=== PATIENT | female | born 1980 | race Caucasian/White ===

== ENCOUNTER → 2024-08-25 | Outpatient (CLI) | payer OTHER, MEDICAID, SELFPAY ==
--- NOTE | 2024-08-25 16:05 | RAD_ITS ---
INDICATION: left sided pleural effusion EXAMINATION/TECHNIQUE: X-RAY - XR Chest 2 Views COMPARISON: None. FINDINGS: LINES/DEVICES: Right-sided port. LUNGS: Moderate left-sided pleural effusion with possible lower lobe consolidation. Right lung clear. MEDIASTINUM AND CARDIOVASCULAR STRUCTURES: Cardiac silhouette within normal limits. BONES AND SOFT TISSUES: No acute findings. Scoliosis. RAD/Chest PA and Lateral IMPRESSION: Left lower lobe pleural effusion and/or consolidation. Electronically Signed: Ulisses Garces MD at 16:53 EST ,
== END | disposition home or self-care (01) ==
LOC: RAD 16:02
PROVIDERS: PCP Nurse Practitioner Family; Referring Provider Nurse Practitioner Family; Visit Provider Nurse Practitioner Family
DX: J90 Pleural effusion, not elsewhere classified (principal); R05.9 Cough, unspecified
CPT/HCPCS: 71046

== ENCOUNTER → 2024-08-26 | Outpatient (CLI) | payer OTHER, MEDICAID, SELFPAY ==
--- NOTE | 2024-08-26 | IMM_PTH ---
PATIENT: JESSICA FELIX LOC: [facility]#:[id number] AGE/SX: 43/F ROOM: RE08/26/[address]: DIANNE Calzada : 1980 BED: DIS: 08/26/2024 SPEC #: [id number] RECD: 08/28/24 10:44 STATUS: SCOTT REQ #: [id number] DICKSON: 08/26/24 00:[address]: Ellen Dowling NP DEPT: IMMUNOHISTOCHEMISTRY RECD BY: Brenton Franklin ENTERED: 08/28/24 10:45 SP TYPE: IMMUNO OTHR DR: DIANNE Daniel Tissues: THORACIC FLUID Procedures: RCC (add) NAPSIN A (add) CA-125 (add) Philippe Ret (add) CEA (add) CK20 (add) CK7 (add) CK8 (add) HEP PAR (add) SC (add) TTF1 (add) Vimentin (add) Pankeratin (add) CD68 (ADD) ER (initial) PHYSICIAN & [address] [address] SPECIMEN INFORMATION: Tissue Source: Thoracentesis fluid Clinical Info: Pleural effusion Specimen Number: [id number] CPT code: 89128,[id number] METHODOLOGY: Deparaffinized sections of prefer/formalin-fixed tissue or PAP/DQ stained slides are incubated with monoclonal/polyclonal antibodies/oligonucleotide probes. Localization is made via biotin free immunoperoxidase method. Appropriate controls are performed and reacted as expected. Results on target cell population are indicated in the following table: RESULTS: ANTIBODY / CLONE RESULT ER (6F11) negative SC (1E2) negative AE1-3 (AE1/AE3/PCK26) positive * CK7 (OV-TL12/30) positive * CK8 (88ffnyD55) positive * CK20 (KS20.8) negative Vimentin (V9) negative * CD68 (KP-1) negative TTF-1 (8G7G3/1) negative Napsin A (Rabbit Polyclonal) negative HepPar (OCh1E5) negative RCC (PN-15) negative CALRET (polyclonal) negative * CEA (11-7/TF-3HB-1) negative, CA125 (OC125) positive(favor non-specific staining) * Positive in mesothelial cells These tests were developed and their performance characteristics determined by [facility]. They may not have been cleared or approved by the U.S. Food and Drug Administration. The FDA has determined that such clearance or approval is not necessary. The above immunohistochemical/dualISH markers are ordered and reviewed by the Pathologist. INTERPRETATION: Thoracentesis fluid for cytology (cytospins and cellblock): Negative for malignant cells. See comment. Comment: Rare, atypical cells noted. Case has been reviewed in consultation with Dr. Oliveira who concurs with the above diagnosis. IDC:NAKIA Todd 09/01/2024
[2024-08-26 13:25] VITALS: BP 114/77; PULSE 97; RESP 18; O2SAT 95
[2024-08-26] MEDS: Lidocaine 2% (20 ml mdv) 20 ML Vial INFILT (13:35)
--- NOTE | 2024-08-26 13:39 | FLU_PTH ---
PATIENT: JESSICA FELIX LOC: [facility]#:[id number] AGE/SX: 43/F ROOM: RE08/26/[address]: DIANNE Calzada : 1980 BED: DIS: 08/26/2024 SPEC #: [id number] RECD: 08/26/24 14:24 STATUS: SCOTT RERuby #: [id number] DICKSON: 08/26/24 13:[address]: Ellen Dowling NP DEPT: CYTOLOGY RECD BY: Yamila Hernadez ENTERED: 08/27/24 11:58 SP TYPE: Fluid OTHR DR: DIANNE Daniel Tissues: Pleural fluid, NOS Procedures: Special Stain Group II Surgery Specimen Level IV Cytospin Fluid HEADER OPERATION: Ultrasound guided thoracentesis PRE-OP DIAGNOSIS: Pleural effusion - left TISSUE SUBMITTED: Thoracentesis fluid for cytology DIAGNOSIS CYTOLOGY Thoracentesis fluid for cytology (cytospins): Negative for malignant cells. See comment. 08/28/2024 COMMENT Immunohistochemistry ([id number]) supports the above diagnosis. Rare atypical cells noted. This case has been reviewed in consultation with Dr. Oliveira who concurs with the above diagnosis. CYTOLOGY STUDY Slides are reviewed. CYTOLOGY GROSS Received is 100 ml of pink-cloudy fluid labeled with the patient's name and and designated per the requisition as Thoracentesis fluid. Submitted for cytology preparation including cell block. Mr 08/27/2024 TC:5 CPT: 49966,07777
[2024-08-26 13:40] VITALS: BP 113/71; PULSE 100; RESP 18; O2SAT 95
[2024-08-26 13:43] VITALS: BP 105/81; PULSE 96; RESP 18; O2SAT 94
--- NOTE | 2024-08-26 13:45 | RAD_ITS ---
STUDY: X-RAY CHEST REASON FOR EXAM: Female, 43 years old. Post thoracentesis TECHNIQUE: AP and inspiration expiration views. COMPARISON: Comparison is made with prior study dated August 25, 2024. FINDINGS: The patient is status post left thoracentesis. No evidence of pneumothorax. Residual left pleural-parenchymal changes seen. RAD/Chest Insp/Exp 2 View IMPRESSION: Status post left thoracentesis. No evidence of pneumothorax. Residual pleural-parenchymal changes are seen at the left lung base. Electronically Signed: Efrain Lynn MD at 13:58 EST ,
--- NOTE | 2024-08-26 13:48 | PCM.OPRPT ---
Problems Associated Problem List Diagnoses (1) Pleural effusion: Procedures Radiology Radiology US Procedures: 67271 Thoracentesis Operative Report (Standard) Operative Information Date of Procedure: 08/26/24 Pre-Operative Diagnosis: Pleural effusion, left Post-Operative Diagnosis: Pleural effusion, left Surgery/Procedure Performed: Ultrasound-guided thoracentesis of the left lung stone polisher: No Type of Anesthesia: Local Procedure Start Time: 13:35 Procedure Stop Time: 13:45 Select all DRAINS/GRAFTS/IMPLANTS that apply: None Estimated Blood Loss: 0 Specimen collected: Yes Description of specimen(s) removed: 100 cc lopez drainage sent to lab Description of surgery: PROCEDURE: Ultrasound Guided Thoracentesis ORDERING PROVIDER: Ellen Dowling CNP INDICATION: Female, 43 years old. Left pleural effusion. PROVIDER: Ramona Luke CNP PROCEDURE: The risks, benefits, and alternatives to the procedure were explained to the patient. The specific risks of bleeding, infection, and pneumothorax requiring chest tube insertion were discussed and accepted. Written informed consent was obtained. The patient was placed in the sitting, upright position. Ultrasonographic evaluation of the bilateral lower pleural spaces was carried out. An adequate pocket was identified in the left lower lobe. The overlying skin was prepped with chlorhexidine and draped in sterile fashion. 2 % lidocaine was administered subcutaneously for local anesthesia. Under ultrasound guidance, a 5-Sinhala thoracentesis needle/catheter system was advanced into the left posterior lower pleural fluid collection. 970 ml of lopez colored fluid was drained. The catheter was removed, and a sterile dressing was applied. The patient tolerated the procedure well. A chest x-ray was ordered. IMPRESSION: Successful ultrasound guided thoracentesis of left pleural effusion. Surgical Findings: Culture and sensitivity test added Complications Complications: No
[2024-08-26 14:00] VITALS: BP 122/83; PULSE 97; RESP 18; O2SAT 95
== END | disposition home or self-care (01) ==
PROVIDERS: PCP Nurse Practitioner Family; Referring Provider Nurse Practitioner Family; Visit Provider Nurse Practitioner Family
DX: J90 Pleural effusion, not elsewhere classified (principal)
CPT/HCPCS: 32555; 71046; 87070; 87075; 87205; 88108; 88305; 88313; 88341; 88342

== ENCOUNTER → 2024-09-01 | Outpatient (CLI) | payer OTHER, MEDICAID, SELFPAY ==
--- NOTE | 2024-09-01 06:52 | CT_ITS ---
STUDY: CT CHEST, ABDOMEN T PELVIS WITH CONTRAST REASON FOR EXAM: Female, 43 years old. F/U METS OVARIAN CA COMPARE TO [place] 2023 RADIATION DOSAGE (If Supplied By Facility): CTDIvol = ( 23.69 ) mGy, DLP = ( 2390.59 ) mGycm TECHNIQUE: Transaxial imaging was performed following intravenous administration of Oral and amp; IV Readi-CAT and amp; 100mL Isovue-300. Multiplanar coronal and sagittal images were reformatted. Individualized dose optimization techniques were used for this CT. COMPARISON: Comparison is made with prior study dated August 03, 2024. FINDINGS: CHEST A right-sided shannan catheter seen with the tip in the superior vena cava. Stable moderate-sized left pleural effusion with left basilar compressive atelectasis and/or infiltrate. Small amount of fluid is seen in the left major fissure. The right lung is clear. There is no demonstrated pleural abnormality. Normal heart and pericardium. Normal mediastinum. Normal hilar regions. Normal unenhanced pulmonary arteries. Normal aorta arch and descending thoracic aorta. Normal osseous structures. ABDOMEN There is decreased attenuation of the liver consistent with steatosis. Small amount of perihepatic fluid. Small amount of fluid in the : Gutters bilaterally. Normal gallbladder and extrahepatic biliary system. Normal spleen. Normal pancreas. Normal bilateral adrenal glands. Normal right kidney. Normal left kidney. Normal visualized stomach. Normal small intestine. There are scattered colonic diverticula consistent with diverticulosis. The appendix is visualized and appears normal. Normal abdominal aorta. Normal inferior vena cava. Normal retroperitoneum. Normal abdominal wall. Normal osseous structures. PELVIS Normal urinary bladder. Pelvic ascites. Status post hysterectomy. There is no pelvic lymphadenopathy or mass lesion. Normal visualized pelvic arteries. CT/CT Chest, Abd, Pel w/Contrast IMPRESSION: Ascites. Diffuse fatty infiltration of the liver. Moderate size left pleural effusion with left basilar atelectasis. Electronically Signed: Efrain Lynn MD at 14:53 EST ,
== END | disposition home or self-care (01) ==
LOC: CT 06:51
PROVIDERS: PCP Nurse Practitioner Family; Referring Provider Internal Medicine Hematology & Oncology; Visit Provider Internal Medicine Hematology & Oncology
DX: C56.3 Malignant neoplasm of bilateral ovaries (principal); C78.6 Secondary malignant neoplasm of retroperitoneum and peritoneum
CPT/HCPCS: 71260; 74177; Q9967

== ENCOUNTER → 2024-09-23 | Outpatient (CLI) | payer OTHER, MEDICAID, SELFPAY ==
--- NOTE | 2024-09-23 08:10 | US_ITS ---
STUDY: ABDOMINAL ULTRASOUND -ascites survey. REASON FOR VISIT: Female, 43 years old FLUID FROM PELVIS TECHNIQUE: Ultrasound evaluation of the 4 quadrants was performed with real-time and static valderrama-scale imaging. TECHNICAL QUALITY: Adequate. COMPARISON: None. FINDINGS: Ascites survey was performed. A small amount of free fluid is seen in the cul-de-sac. Not enough fluid for safe paracentesis. US/Abdomen Limited IMPRESSION: Not enough fluid for safe paracentesis. Electronically Signed: Efrain Lynn MD at 13:56 EST ,
[2024-09-23 08:40] VITALS: BP 146/90; PULSE 95; RESP 18; O2SAT 97
== END | disposition home or self-care (01) ==
LOC: US 08:10
PROVIDERS: PCP Nurse Practitioner Family; Referring Provider Internal Medicine Hematology & Oncology; Visit Provider Internal Medicine Hematology & Oncology
DX: C56.3 Malignant neoplasm of bilateral ovaries (principal)
CPT/HCPCS: 76705

== ENCOUNTER → 2024-12-02 | Outpatient (CLI) | payer OTHER, MEDICAID, SELFPAY ==
--- NOTE | 2024-12-02 08:00 | CT_ITS ---
PROCEDURE: CT CHEST, ABD, PEL W/CONTRAST 12/02/2024 REASON FOR EXAM: F/U OVARIAN CANCER TECHNIQUE: Chest, abdomen and pelvis CT with intravenous contrast. Coronal and Sagittal reconstruction series were provided. One or more dose reduction techniques were used (e.g., Automated exposure control, adjustment of the mA and/or kV according to patient size, use of iterative reconstruction technique. PATIENT PREPARATION: Per protocol ORAL CONTRAST TYPE: Given CONTRAST: Isovue-300 VOLUME: 100 mLmL RADIATION DOSE SUMMARY: CTDlvol: 16 mGy DLP: 1731.57 mGycm COMPARISON: Comparison is made with prior study dated September 01, 2024. FINDINGS: CT CHEST: Hardware: A right-sided port a catheter is seen with the tip in the superior vena cava. Lymph nodes: No suspicious lymph nodes are seen. Heart and Vasculature: Coronary artery calcifications are noted. Lungs and Airways: No pulmonary infiltrate or pulmonary nodule is seen. Pleura: The previously seen left pleural effusion has resolved. Bones: Degenerative changes of the thoracic spine. CT ABDOMEN/PELVIS: Liver: Diffuse fatty infiltration. Gallbladder: Unremarkable. Spleen: Normal size. Pancreas: Normal size without evidence of mass surrounding inflammation or ductal dilation. Adrenals: Unremarkable Kidneys: Normal renal sizes. No hydronephrosis. Bladder: Unremarkable. Reproductive Organs: Prior hysterectomy. Bilateral oophorectomy. Bowel: Colonic diverticulosis without diverticulitis. Appendix: The appendix is not identified. There is no inflammatory process identified in the right lower quadrant to suggest appendicitis. Lymph nodes: Unremarkable. Vasculature: The abdominal aorta and IVC are normal. Peritoneum / Retroperitoneum: Unremarkable. Bones: Unremarkable CT/CT Chest, Abd, Pel w/Contrast IMPRESSION: Interval resolution of the left pleural effusion. Fatty infiltration of the liver. No acute abnormality is seen. Reading Location: [place] [address]
[2024-12-02] MEDS: 0.9% Saline Lock 10 ML Syringe IV (08:01)
== END | disposition home or self-care (01) ==
LOC: CT 07:47
PROVIDERS: PCP Nurse Practitioner Family; Referring Provider Internal Medicine Hematology & Oncology; Visit Provider Internal Medicine Hematology & Oncology
DX: C56.3 Malignant neoplasm of bilateral ovaries (principal); C78.6 Secondary malignant neoplasm of retroperitoneum and peritoneum
CPT/HCPCS: 71260; 74177; Q9967; A4216

== ENCOUNTER → 2024-12-31 | Outpatient (CLI) | payer OTHER, MEDICAID, SELFPAY | END | disposition home or self-care (01) | LOC: LAB 16:59 | PROVIDERS: PCP Nurse Practitioner Family; Referring Provider Otolaryngology Otolaryngology/Facial Plastic Surgery; Visit Provider Otolaryngology Otolaryngology/Facial Plastic Surgery | DX: J32.8 Other chronic sinusitis (principal) | CPT/HCPCS: 87070; 87205 ==

== ENCOUNTER → 2025-02-11 10:36 | Outpatient (REF) | payer SELFPAY ==
[2025-02-12 14:02] LABS: HIV Nonreactive (Nonreactive); Hepatitis B Surface Antigen Nonreactive (Nonreactive); Hepatitis C Antibody Nonreactive (Nonreactive)
== END | disposition home or self-care (01) ==
LOC: ED 10:36
PROVIDERS: PCP Nurse Practitioner Family; Visit Provider Emergency Medicine
DX: Z01.89 Encounter for other specified special examinations (principal)
CPT/HCPCS: 86703; 86704; 86803; 87340

== ENCOUNTER → 2025-02-11 | Outpatient (CLI) | payer OTHER, MEDICAID, SELFPAY ==
--- NOTE | 2025-02-11 08:34 | CT_ITS ---
PROCEDURE: CT CHEST, ABD, PEL W/CONTRAST 02/11/2025 REASON FOR EXAM: F/U OVARIAN CA Postprandial nausea. TECHNIQUE: Chest, abdomen and pelvis CT with intravenous contrast. Coronal and Sagittal reconstruction series were provided. One or more dose reduction techniques were used (e.g., Automated exposure control, adjustment of the mA and/or kV according to patient size, use of iterative reconstruction technique. PATIENT PREPARATION: Per protocol ORAL CONTRAST TYPE: None. CONTRAST: Isovue-300 VOLUME: 100mL RADIATION DOSE SUMMARY: CTDlvol: 23 mGy DLP: 2364.7 mGycm COMPARISON: Prior study dated December 02, 2024. FINDINGS: CT CHEST: Hardware: A right-sided port a catheter is seen with the tip in the superior vena cava. Lymph nodes: No suspicious lymph nodes are seen. Heart and Vasculature: The heart is nonenlarged. No coronary artery calcification is seen. Lungs and Airways: The lungs are clear. Pleura: No evidence of pleural effusion. Bones: Degenerative changes of the thoracic spine. CT ABDOMEN/PELVIS: Liver: Diffuse fatty infiltration. Gallbladder: Unremarkable Spleen: Normal size. Pancreas: Normal size without evidence of mass surrounding inflammation or ductal dilation. Adrenals: Unremarkable Kidneys: Normal renal sizes. No hydronephrosis. Bladder: Unremarkable Reproductive Organs: Status post hysterectomy and bilateral oophorectomy. Bowel: No bowel obstruction. Appendix: Unremarkable Lymph nodes: Unremarkable. Vasculature: The abdominal aorta and IVC are normal. Peritoneum / Retroperitoneum: Unremarkable Bones: Degenerative changes of the spine. CT/CT Chest, Abd, Pel w/Contrast IMPRESSION: Stable examination. Reading Location: [id number]
[2025-02-11 09:09] LABS: Absolute Lymphocyte Count 1.52 X10^3/uL (0.83-4.51); Absolute Neutrophil Count 7.2 X10^3/uL (2.0-7.7); Basophil# 0.03 X10^3/uL; Basophil% 0.3 % (0-1); Eosinophil# 0.09 X10^3/uL; Eosinophils% 0.9 % (0-5); Hematocrit 37.2 % (37-47); Hemoglobin 12.4 g/dL (12.0-15.0); Lymphocyte # 1.52 X10^3/ul (0.83-4.51); Lymphocyte % 15.7 % (19-41); Mean Corp Hgb Conc 33.3 g/dL (32-36); Mean Corpuscular Hgb 29.6 pg (27.0-32.0); Mean Corpuscular Volume 88.8 fL (81-99); Mean Platelet Vol. 10.2 fl (6.2-12.0); Monocyte# 0.82 X10^3/uL; Monocyte% 8.5 % (0-10); NRBC Flagged by Analyzer 0 % (0-5); Neutrophil % 74.3 % (47-70); Platelet Count 185 K/mm3 (150-450); RBC Distribution Width CV 13.6 % (11.6-14.6); RBC Distribution Width SD 43.8 fl (35.1-43.9); Red Blood Count 4.19 M/mm3 (4.2-5.4); White Blood Count 9.7 K/mm3 (4.4-11.0)
[2025-02-11] MEDS: 0.9% Saline Lock 10 ML Syringe IV (09:24)
[2025-02-11 09:58] LABS: ALB/GLOB Ratio 1.5 RATIO (0.9-2.4); AST(SGOT) 16 U/L (<=31); Alanine Aminotransfer ALT/SGPT 16 U/L (<=34); Albumin, Serum 3.8 g/dL (3.5-5.0); Alkaline Phosphatase 90 U/L (35-104); Anion Gap 10 (5-15); BUN 19 mg/dL (4-19); BUN/Creat Ratio 29.5 RATIO (10-20); Calcium,Total 9.1 mg/dL (7.6-11.0); Carbon Dioxide 25.1 mmol/L (21.0-32.0); Chloride 104 mmol/L (98-108); Creatinine, Serum 0.64 mg/dL (0.70-1.20); EST Glomerular Filtration Rate 112 (>60); Globulin 2.5 g/dL (2.2-4.2); Glucose 91 mg/dL (70-99); Potassium 4.2 mmol/L (3.3-5.1); Protein, Total 6.3 g/dL (5.9-8.4); Sodium Level 138 mmol/L (133-145); Total Bilirubin 0.38 mg/dL (0.00-1.30)
[2025-02-12 05:07] LABS: Cancer Antigen 125 15.4 U/mL (0.0-38.1)
== END | disposition home or self-care (01) ==
LOC: CT 08:33
PROVIDERS: Internal Medicine Hematology & Oncology; PCP Nurse Practitioner Family; Referring Provider Nurse Practitioner Family; Visit Provider Nurse Practitioner Family
DX: C56.3 Malignant neoplasm of bilateral ovaries (principal); C78.6 Secondary malignant neoplasm of retroperitoneum and peritoneum
CPT/HCPCS: 71260; 74177; 80053; 85025; 86304; Q9967; A4216

== ENCOUNTER → 2025-02-17 | Outpatient (CLI) | payer OTHER, MEDICAID, SELFPAY ==
--- NOTE | 2025-02-17 12:30 | NEURO ---
NCS and/or EMG Patient Report Ordering Doctor: Pradeep Chandler DATE OF SERVICE: 02/17/25 Indira presents with complaints of numbness and tingling in the first 4 digits of each hand. Symptoms been present for several years. Electrodiagnostic Findings: Median motor nerve demonstrates normal distal latency, amplitude and conduction velocity bilaterally. Normal ulnar motor response bilaterally. Normal median and ulnar F?waves. Prolonged median sensory latency at the wrist and palm bilaterally. Normal ulnar and radial sensory responses. Needle EMG testing was performed in the upper limbs. All muscles tested showed no evidence of denervation with normal motor unit action potentials. Electrodiagnostic impression: This is an abnormal study in the upper limbs 1. Electrodiagnostic findings suggestive of bilateral median mononeuropathy. This consistent with a mild bilateral carpal tunnel syndrome. Multi Select Codes Neurology Neurology Interp Codes: 00352-29 Musc test done w/n test comp (interp) (2) and 14610-42 Nrv cndj test 13/> studies (interp)
== END | disposition home or self-care (01) ==
LOC: PSN 10:23
PROVIDERS: PCP Nurse Practitioner Family; Referring Provider Orthopaedic Surgery Sports Medicine; Visit Provider Orthopaedic Surgery Sports Medicine
DX: G56.03 Carpal tunnel syndrome, bilateral upper limbs (principal)
CPT/HCPCS: 95886; 95913

== ENCOUNTER → 2025-03-02 | Outpatient (CLI) | payer OTHER, MEDICAID, SELFPAY ==
--- NOTE | 2025-03-02 13:30 | BD_ITS ---
PROCEDURE: DEXA BONE DENSITY STUDY 03/02/2025 REASON FOR EXAM: POST MENOPAUSE ON ANTI ESTROGEN RX F, age 44 y/o . TECHNIQUE: DEXA BONE DENSITY STUDY COMPARISON: None FINDINGS: BMD and T-SCORES Lumbar spine: 0.971 g/cm2, T-score -0.7 Levels: L1 through L4 At the low end of the low range of normal 0.7. Left femoral neck: 0.756 g/cm2, T-score -0.5 Femoral neck comparison data not recommended for monitoring change. Left total hip: 1.001 g/cm2, T-score 0.5 Normal bone mineral density at the low end of the normal range. Right femoral neck: 0.759 g/cm2, T-score -0.8 Femoral neck comparison data not recommended for monitoring change. Right total hip: 1.000 g/cm2, T-score 0.5 The World Health Organization has defined the following categories based on bone density: Normal bone density: T-score equal to or greater than -1.0 Osteopenia: T-score between -1.0 and -2.5 Osteoporosis: T-score equal to or less than -2.5 FRAX (or Comparable) Fracture Risk Assessment: 10 Year Probability of Fracture: Major Osteoporotic Fracture: 3.3% Hip Fracture: 0.1% (Note: FRAX is not to be reported in setting of normal range bone density, osteoporosis on DEXA, known history of osteoporosis, prior osteoporotic hip or vertebral fracture, or for any patient undergoing pharmacological treatment for bone loss.) The National Osteoporosis Foundation (NOF) recommends pharmacological treatment for patients with a FRAX 10-year risk of 3% or higher for a hip fracture, or 20% or higher for a major osteoporotic fracture, to prevent osteoporosis and reduce fracture risk. The patient does meet the pharmacological treatment recommendations for prevention of osteoporosis. BD/Dexa Bone Density Study IMPRESSION: NORMAL T-SCORES. Bone mineral density in the lumbar spine, right and left hip is at the lower end of the normal range. Recommend follow-up as clinically warranted. Reading Location[facility]
== END | disposition home or self-care (01) ==
LOC: OPBD 13:18
PROVIDERS: PCP Nurse Practitioner Family; Referring Provider Internal Medicine Hematology & Oncology; Visit Provider Internal Medicine Hematology & Oncology
DX: Z78.0 Asymptomatic menopausal state (principal)
CPT/HCPCS: 77080

== ENCOUNTER 2025-04-14 09:14 | Day surgery (SDC) | payer OTHER, MEDICAID, SELFPAY ==
--- NOTE | 2025-04-07 16:45 | PAT.ANE_ITS ---
Pre-Assessment Diagnosis/Proposed Procedure Planned Operative Procedure(s): BILAT ENDOSCOPIC CARPAL TUNNEL RELEASE Anesthesia History Anesthesia History - outpatient physical therapist: Anesthesia History - outpatient physical therapist Hx Hospitalization Yes: 06/2024 PNEUMONIA 04/06/25 11:28 2023 POST CHEMO Any Problems With Anesthesia No 04/06/25 11:28 Cholinesterase deficiency No 04/06/25 11:28 You/Your Family Experience No 04/06/25 11:28 fever (hyperthermia) with Relationship Recent Exposure to Contagious Disease Does patient have nerve No 04/06/25 11:28 stimulator Patient instructed to have device shut off --Does patient have Pacemaker or ICD? When Was Last Pacemaker Check QUESTION #4 FULL TEXT: You/Your Family Experience fever (hyperthermia) with Anesthesia Last Oral Intake Last Oral intake: Last Oral Intake NPO since Meds taken in AM with sips of water? Meds patient instructed to take am of surgery PONV PONV - outpatient physical therapist: PONV - outpatient physical therapist Female Yes 04/06/25 11:28 HX of Motion Sickness Yes 04/06/25 11:28 HX of N/V After Surgery No 04/06/25 11:28 Non-Smoker Yes 04/06/25 11:28 Duration of Surgery greater Yes 04/06/25 11:28 than 60 minutes Number of Risk Factors 4 04/06/25 11:28 PONV Score Severe Risk 04/06/25 11:28 Height & Weight Height & Weight: Anesthesia: Height & Weight Height 5 ft 6 in 02/16/25 16:05 Respiratory Assessment Respiratory Assessment - outpatient physical therapist: Respiratory Tract Infection Hx - outpatient physical therapist Hx Respiratory Tract Infection No 04/06/25 11:28 STOP Sleep Apnea STOP Sleep Apnea - outpatient physical therapist: STOP Sleep Apnea - outpatient physical therapist Hx Hypertension No 04/06/25 11:28 Hx Sleep Apnea No 04/06/25 11:28 CPAP BIPAP Do you snore loudly (louder No 04/06/25 11:28 than talking or can be heard Do you often feel tired/ Yes 04/06/25 11:28 fatigued/ sleepy during daytime? Has anyone observed you stop No 04/06/25 11:28 breathing during sleep? STOP Results Negative 04/06/25 11:28 QUESTION #5 FULL TEXT : Do you snore loudly (louder than talking or can be heard through closed doors)? 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 Specify any problems Hx of Preganancy in last 3 No 04/06/25 11:28 Months Nurse Filling Out Transfusion DSCHRIBER 04/06/25 11:28 & Questions: Date: 04/06/25 04/06/25 11:28 Time: 11:30 04/06/25 11:28 Patient unable to answer at this time (ie. confused, unrespo /Reproduction History /Reproductive History - outpatient physical therapist: /Reproductive Hx- outpatient physical therapist Hx Now No 04/06/25 11:28 Gestational Age (in weeks): EDC: Hx Hx Para Hx Section SAB No 04/06/25 11:28 [facility] Medical History (Updated 04/06/25 @ 11:38 by Margarette Lynne) Wears glasses Gastric reflux Asthma Non-smoker History of pain when walking History of edema History of echocardiogram Cancer Bilateral carpal tunnel syndrome Cough Pleural effusion Candidiasis of breast Dysuria Oral candidiasis Diarrhea due to drug Encounter for chemotherapy management 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 carcinomatosis Ovarian cancer Acute superficial venous thrombosis of lower extremity Anxiety and depression Carcinoma of ovary, stage 3 Home Medications ?Medication ?Instructions ?Recorded ?Last Taken ?Type albuterol sulfate 90 mcg/actuation 1 inh inhalation Q4 H PRN shortness 05/14/24 Unknown History aerosol inhaler of breath or wheezing loperamide 2 mg capsule 2 mg PO Q6H PRN diarrhea Unknown History omeprazole 20 mg tablet,delayed 20 mg PO QDAY 06/04/24 Unknown History release lidocaine-prilocaine 2.5 %-2.5 % 1 applic topical ONCE PRN PORT 06/17/24 Unknown Rx topical cream ACCESS 30 days #30 grams ondansetron 8 mg disintegrating 8 mg PO Q8H PRN nausea and 08/12/24 Unknown Rx tablet vomiting #30 tabs clonazepam 0.5 mg tablet 0.5 mg PO DAILY PRN anxiety 12/09/24 Unknown History fluoxetine 20 mg tablet 40 mg PO DAILY 12/09/24 Unkn own History calcium carbonate 200 mg calcium 2 tab PO QHS 04/06/25 Unknown History (500 mg)-vitamin D3 400 unit tablet letrozole 2.5 mg tablet (Femara) 2.5 mg PO QHS 5 Unknown History loratadine 10 mg tablet (Claritin) 10 mg PO DAILY 03/17 11/10 Unknown History Allergy/AdvReac Type Severity Reaction Status Date / Time paclitaxel (From Taxol) Allergy Severe Anaphylaxis Verified 04/06/25 11:24 Family History Aunt Breast cancer Cancer Father's side Aunt Breast cancer Great aunt Surgical History (Updated 04/06/25 @ 11:38 by Margarette Lynne) Hx of total hysterectomy History of appendectomy History of colposcopy H/O LEEP Social History Smoking Status: Never smoker alcohol intake: current alcohol intake frequency: holidays/special occasions only substance use type: does not use Audit: Pertinent Findings Pertinent Findings EKG Perinent findings: August 03, 2024. Sinus tachycardia. Echo (EF%) pertinent findings: May 18, 2024. EF is 60 to 65%. No aortic stenosis. Recommendation Anesthesia Recommendation Anesthesia recommendation: OPTIMIZED for anesthesia
[2025-04-14] VITALS (10 sets, daily range): BP systolic 133–161; BP diastolic 73–92; PULSE 81–107; RESP 16; TEMP 36.1–36.6; O2SAT 93–100; BMI 47.0
[2025-04-14] MEDS: Lactated Ringers 1,000 ML 15 ML IV (09:44)
--- NOTE | 2025-04-14 10:14 | PCM.PRE.AN2 ---
ASA Classification* ASA Classification ASA Classification: 3 Assessment & Plan Anesthesia* Anesthesia Assessment Anesthesia Assessment: Discussed sedation and/or anesthesia options, risks, benefits, and alternatives with patient/parents/legal guardian/POA. Questions invited. The patient/parents/legal guardian/POA seems to understand and agrees to proceed with anesthesia plan. Reviewed the physical assessment, medical history, allergy history and patient home medications list prior to surgery/procedure/anesthetic and documented any changes. Performed airway and anesthesia risk assessments. Anesthesia Type Anesthesia Type: General (Discussed choice of MAC vs IV GA/LMA with patient. She prefers the IV GA, had a bad experience under MAC with her Port placement for Ovarian CA) History Source History Obtained from:: Patient and Chart Anesthesia Focused Assessment* Temperature: 97.6 F Pulse Rate: 94 Blood Pressure: 133/92 Respiratory Rate: 16 Pulse Ox: 97 Oxygen Delivery Method: Room Air Airway Assessment Mouth opens: >3 cm Mallampati Score: II Teeth Condition: Intact Neck Range of motion (ROM): Full ROM Labs Anesthesia Preop lab: CBC WBC 9.7 K/mm3 (4.4-11.0) 02/11/25 09:05 02/11/25 RBC 4.19 M/mm3 (4.2-5.4) L 02/11/25 09:05 02/11/25 Hgb 12.4 g/dL (12.0-15.0) 02/11/25 09:05 02/11/25 Hct 37.2 % (37-47) 02/11/25 09:05 02/11/25 Plt Count 185 K/mm3 (150-450) 02/11/25 09:05 02/11/25 CHEMISTRY Potassium 4.2 mmol/L (3.3-5.1) 02/11/25 09:05 02/11/25 Sodium 138 mmol/L (133-145) 02/11/25 09:05 02/11/25 Magnesium 2.1 mg/dL (1.5-2.2) 12/02/24 07:42 12/02/24 Phosphorus 3.5 mg/dL (2.7-4.5) 12/02/24 07:42 12/02/24 BUN 19 mg/dL (4-19) 02/11/25 09:05 02/11/25 Creatinine 0.64 mg/dL (0.70-1.20) L 02/11/25 09:05 02/11/25 Glucose 91 mg/dL (70-99) 02/11/25 09:05 02/11/25 COAG PT 13.9 SECONDS (11.7-14.9) 08/25/24 15:50 08/25/24 HCG, Quant [id number] mIU/mL (<9 non-preg) H 09/16/13 17:55 09/16/13 Pre-Assessment Diagnosis/Proposed Procedure Planned Operative Procedure(s): BILAT ENDOSCOPIC CARPAL TUNNEL RELEASE Anesthesia History 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 When Was Last Pacemaker Check QUESTION #4 FULL TEXT: You/Your Family Experience fever (hyperthermia) with Anesthesia Last Oral Intake Last Oral intake: Last Oral Intake NPO since 08:00 04/14/25 09:38 Meds taken in AM with sips of water? 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 Female Yes 04/06/25 11:28 HX of Motion Sickness Yes 04/06/25 11:28 HX of N/V After Surgery No 04/06/25 11:28 Non-Smoker Yes 04/06/25 11:28 Duration of Surgery greater Yes 04/06/25 11:28 than 60 minutes Number of Risk Factors 4 04/06/25 11:28 PONV Score Severe Risk 04/06/25 11:28 Height & Weight Height & Weight: Anesthesia: Height & Weight Height 5 ft 6 in 04/14/25 09:38 Weight: 131.995 kg 04/14/25 09:38 Body Mass Index (BMI) 47.0 04/14/25 09:38 Respiratory Assessment Respiratory Assessment - hoop bending machine operator: Respiratory Tract Infection Hx - 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 Has anyone observed you stop No 04/06/25 11:28 breathing during sleep? STOP Results Negative 04/06/25 11:28 QUESTION #5 FULL TEXT : Do you snore loudly (louder than talking or can be heard through closed doors)? 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 Specify any problems Hx of Preganancy in last 3 No 04/06/25 11:28 Months Nurse Filling Out Transfusion DSCHRIBER 04/06/25 11:28 & Questions: Date: 04/06/25 04/06/25 11:28 Time: 11:30 04/06/25 11:28 Patient unable to answer at this time (ie. 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: /Reproductive Hx- hoop bending machine operator Hx Now No 04/06/25 11:28 Gestational Age (in weeks): EDC: Hx Hx Para Hx Section SAB No 04/06/25 11:28 Active Medications Active Medications: Current Medications Generic Name Dose Route Start Last Admin Trade Name Freq PRN Reason Stop Dose Admin Cefazolin Sodium 2 gm/ Sodium 110 mls @ 200 mls/hr 04/14/25 11:15 04/14/25 10:09 Chloride IV 04/14/25 11:47 Not Given INTRAOP ONE Lactated Ringer's 1,000 mls @ 15 mls/hr 04/14/25 09:30 04/14/25 09:44 IV 15 mls/hr .Q48H ANSELMO Administration PFS Medical History (Updated 04/06/25 @ 11:38 by Margarette Lynne) Wears glasses Gastric reflux Asthma Non-smoker History of pain when walking History of edema History of echocardiogram Cancer Bilateral carpal tunnel syndrome Cough Pleural effusion Candidiasis of breast Dysuria Oral candidiasis Diarrhea due to drug Encounter for chemotherapy management 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 carcinomatosis Ovarian cancer Acute superficial venous thrombosis of lower extremity Anxiety and depression Carcinoma of ovary, stage 3 Home Medications ?Medication ?Instructions ?Recorded ?Last Taken ?Type albuterol sulfate 90 mcg/actuation 1 inh inhalation Q4H PRN shortness 05/14/24 Unknown History aerosol inhaler of breath or wheezing loperamide 2 mg capsule 2 mg PO Q6H PRN diarrhea 06/04/24 Unknown History omeprazole 20 mg tablet,delayed 20 mg PO QDAY 06/04/24 04/14/25 History release lidocaine-prilocaine 2.5 %-2.5 % 1 applic topical ONCE PRN PORT 06/17/24 Unknown Rx topical cream ACCESS 30 days #30 grams ondansetron 8 mg disintegrating 8 mg PO Q8H PRN nausea and 08/12/24 04/14/25 Rx tablet vomiting #30 tabs clonazepam 0.5 mg tablet 0.5 mg PO DAILY PRN anxiety 12/09/24 Unknown History fluoxetine 20 mg tablet 40 mg PO DAILY 12/09/24 04/13/25 History calcium carbonate 200 mg calcium 2 tab PO QHS 04/06/25 Unknown History (500 mg)-vitamin D3 400 unit tablet letrozole 2.5 mg tablet (Femara) 2.5 mg PO QHS 04/06/25 04/13/25 History loratadine 10 mg tablet (Claritin) 10 mg PO DAILY 04/06/25 Unknown History Allergy/AdvReac Type Severity Reaction Status Date / Time paclitaxel (From Taxol) Allergy Severe Anaphylaxis Verified 04/14/25 09:37 Family History Aunt Breast cancer Cancer Father's side Aunt Breast cancer Great aunt Surgical History (Updated 04/06/25 @ 11:38 by Margarette Lynne) Hx of total hysterectomy History of appendectomy History of colposcopy H/O LEEP Social History Smoking Status: Never smoker alcohol intake: current alcohol intake frequency: holidays/special occasions only substance use type: does not use Review of Systems (Anesthesia) ROS Narrative System reviewed and no additional complaints, except as documented.
--- NOTE | 2025-04-14 10:28 | PCM.HP.STD ---
HPI - General HPI Narrative JESSICA FELIX, is a 44 F who presents for bilateral ECTR. no change to h and p. rab, post op instructions given. wrists marked. ok to proceed. MR#: [id number] Acct: [id number] Name: JESSICA FELIX Rep #: [id number] : 1980 Provider: Dr. Pradeep Chandler MD Age/Sex: 44/F Location: [facility] [email or web address] Status: Signed Intake Vital Signs 02/17/2516:05 Height 5 ft 6 in Intake Visit Reasons: bilateral wrist Allergies paclitaxel (From Taxol) Allergy (Severe, Verified 03/29/25 10:59) Anaphylaxis Medications ?Medication ?Instructions ?Recorded ?Confirmed ?Type MAGIC MOUTH WASH (BMX) 180 mL ml PO #180 mL 05/14/24 03/29/25 History suspension albuterol sulfate 90 mcg/actuation 1 inh inhalation ONCE 05/14/24 03/29/25 History aerosol inhaler loratadine 10 mg tablet (Claritin) 10 mg PO DAILY 05/14/24 03/29/25 History dicyclomine 20 mg tablet 20 mg PO .QID PRN 06/04/24 03/29/25 History loperamide 2 mg capsule 2 mg PO Q6H PRN 06/04/24 03/29/25 History omeprazole 20 mg tablet,delayed 20 mg PO QDAY 06/04/24 03/29/25 History release prochlorperazine maleate 10 mg 10 mg PO Q6H PRN nausea and 06/04/24 03/29/25 Rx tablet vomiting #30 tabs dexamethasone 4 mg tablet 8 mg (2 x 4 mg) PO .COMPLEX #12 06/17/24 03/29/25 Rx tabs lidocaine-prilocaine 2.5 %-2.5 % 1 applic topical ONCE PRN PORT 06/17/24 03/29/25 Rx topical cream ACCESS 30 days #30 grams nystatin 100,000 unit/mL oral 5 ml PO Q6H PRN #473 mL 07/15/24 03/29/25 Rx suspension nystatin 100,000 unit/gram topical 1 applic topical BID #30 grams 07/21/24 03/29/25 Rx cream ondansetron 8 mg disintegrating 8 mg PO Q8H PRN nausea and 08/12/24 03/29/25 Rx tablet vomiting #30 tabs letrozole 2.5 mg tablet (Femara) 2.5 mg PO QDAY 30 days #30 tabs 09/02/24 03/29/25 Rx clonazepam 0.5 mg tablet 0.5 mg PO DAILY PRN 12/09/24 03/29/25 History fluoxetine 20 mg tablet 40 mg PO DAILY 12/09/24 03/29/25 History PFSH Medical History Bilateral carpal tunnel syndrome Swelling of both lower extremities Cough Pleural effusion Candidiasis of breast UTI (urinary tract infection) Dysuria Oral candidiasis Diarrhea due to drug Encounter for chemotherapy management 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 carcinomatosis Ovarian cancer Acute superficial venous thrombosis of lower extremity Anxiety and depression Carcinoma of ovary, stage 3 Surgical History History of appendectomy History of colposcopy H/O LEEP History of hysterectomy Family History Aunt Breast cancer Cancer Father's sideAunt Breast cancer Great aunt Social History Smoking Status: Never smoker alcohol intake: current alcohol intake frequency: holidays/special occasions only substance use type: does not use HPI bilateral wrist Details: This documentation accurately reflects the service provided and the decisions made by me, Dr. Pradeep Chandler MD 03/29/25 1059. Part of today?s visit was documented by [ ], acting as scribe. JESSICA FELIX is a 44 year old F here today for FU bilat NCS for CTS.. Had a cortisone injection for her right carpal tunnel syndrome that was about 6 weeks ago it did help but unfortunately now it has worn off and the patient is desiring to go ahead with a more definitive surgical solution. Supplemental Info [facility]monary Services/Neurology [address] [place] [address] MR#: [id number] Acct: [id number] Name: JESSICA FELIX Rep #: [id number] : 1980 44 From: Te Zeng MD Referring Dr: Pradeep Chandler MD Status: REG CLI Location: PSN Date: 02/17/25 Sex: F C NCS and/or EMG Patient Report Ordering Doctor: Pradeep Chandler DATE OF SERVICE: 02/17/25 Jessica presents with complaints of numbness and tingling in the first 4 digits of each hand. Symptoms been present for several years. Electrodiagnostic Findings: Median motor nerve demonstrates normal distal latency, amplitude and conduction velocity bilaterally. Normal ulnar motor response bilaterally. Normal median and ulnar F?waves. Prolonged median sensory latency at the wrist and palm bilaterally. Normal ulnar and radial sensory responses. Needle EMG testing was performed in the upper limbs. All muscles tested showed no evidence of denervation with normal motor unit action potentials. Electrodiagnostic impression: This is an abnormal study in the upper limbs 1. Electrodiagnostic findings suggestive of bilateral median mononeuropathy. This consistent with a mild bilateral carpal tunnel syndrome. Multi Select Codes Neurology Neurology Interp Codes: 39965-38 Musc test done w/n test comp (interp) (2) and 54341-28 Nrv cndj test 13/> studies (interp) Coding Level of Care Code Off vis,est,level 4 Diagnoses Bilateral carpal tunnel syndrome G56.03 Assessment and Plan Assessment and Plan (1) Bilateral carpal tunnel syndrome: Status: Acute Plan: 44-year-old female with bilateral carpal tunnel syndrome. Electrodiagnostic findings suggestive of bilateral median mononeuropathy. This consistent with a mild bilateral carpal tunnel syndrome. Discussed the pros and cons risks and benefits of continued nonoperative management versus surgical release. This can be done open or endoscopically. There are pros and cons to each method. Generally slightly quicker recovery with less pain with endoscopic although possibly higher risk of incomplete release. We can do one-sided a time or both at once, again there are pros and cons to each. That being said the patient wants to go ahead with endoscopic carpal tunnel release. pros and cons risks and benefits were discussed with the patient including but not limited to infection, pain, stiffness, bleeding, damage to surrounding structures, neurovascular injury, recurrence or retear, failure or wear of hardware or fixation, instability, fracture, deep vein thrombosis and pulmonary embolism, anesthetic risks, , patient dissatisfaction, need for further surgery and other risks. Patient understood and wished to proceed with surgery, and signed the informed consent documentation. Carpal Tunnel Syndrome (CTS) occurs when the median nerve, which runs through the wrist, becomes compressed. Treatment options vary based on the severity of the condition: Non-Surgical Treatments: Wrist Splinting: Wearing a splint at night to keep the wrist in a neutral position. Activity Modification: Avoiding repetitive wrist movements or adjusting work habits. Physical Therapy: Exercises to improve wrist and hand function. Medications: Anti-inflammatory drugs (NSAIDs) or corticosteroid injections to reduce swelling and pain. Surgical Treatment: Carpal Tunnel Release Surgery: A procedure where the ligament pressing on the median nerve is cut to relieve pressure. This is considered when non-surgical treatments are ineffective. Options are min-open or endoscopic. Ortho Exam General General: Yes no acute distress Neurologic: Yes alert and Yes oriented x3 Psychologic: Yes reasonable and appropriate Right Wrist/Hand Skin/Wound: Yes CDI, No Swelling, No Ecchymosis, Yes nail intact and Yes capillary refill normal Left Wrist/Hand Skin/Wound: Yes CDI, No Swelling and No Ecchymosis [facility] Medical History (Updated 04/06/25 @ 11:38 by Margarette Lynne) Wears glasses Gastric reflux Asthma Non-smoker History of pain when walking History of edema History of echocardiogram Cancer Bilateral carpal tunnel syndrome Cough Pleural effusion Candidiasis of breast Dysuria Oral candidiasis Diarrhea due to drug Encounter for chemotherapy management 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 carcinomatosis Ovarian cancer Acute superficial venous thrombosis of lower extremity Anxiety and depression Carcinoma of ovary, stage 3 Home Medications ?Medication ?Instructions ?Recorded ?Last Taken ?Type albuterol sulfate 90 mcg/actuation 1 inh inhalation Q4H PRN shortness 05/14/24 Unknown History aerosol inhaler of breath or wheezing loperamide 2 mg capsule 2 mg PO Q6H PRN diarrhea 06/04/24 Unknown History omeprazole 20 mg tablet,delayed 20 mg PO QDAY 06/04/24 04/14/25 History release lidocaine-prilocaine 2.5 %-2.5 % 1 applic topical ONCE PRN PORT 06/17/24 Unknown Rx topical cream ACCESS 30 days #30 grams ondansetron 8 mg disintegrating 8 mg PO Q8H PRN nausea and 08/12/24 04/14/25 Rx tablet vomiting #30 tabs clonazepam 0.5 mg tablet 0.5 mg PO DAILY PRN anxiety 12/09/24 Unknown History fluoxetine 20 mg tablet 40 mg PO DAILY 12/09/24 04/13/25 History calcium carbonate 200 mg calcium 2 tab PO QHS 04/06/25 Unknown History (500 mg)-vitamin D3 400 unit tablet letrozole 2.5 mg tablet (Femara) 2.5 mg PO QHS 04/06/25 04/13/25 History loratadine 10 mg tablet (Claritin) 10 mg PO DAILY 04/06/25 Unknown History Allergy/AdvReac Type Severity Reaction Status Date / Time paclitaxel (From Taxol) Allergy Severe Anaphylaxis Verified 04/14/25 09:37 Family History Aunt Breast cancer Cancer Father's side Aunt Breast cancer Great aunt Surgical History (Updated 04/06/25 @ 11:38 by Margarette Lynne) Hx of total hysterectomy History of appendectomy History of colposcopy H/O LEEP Social History Smoking Status: Never smoker alcohol intake: current alcohol intake frequency: holidays/special occasions only substance use type: does not use Vital Signs Vital Signs Vital Signs: 04/14/25 09:38 04/14/25 09:38 04/14/25 10:20 Temperature 97.6 F L 97.6 F L Temperature Source Temporal Pulse Rate 94 94 Respiratory Rate 16 16 Respiratory Pattern Normal Blood Pressure 133/92 H 133/92 H Blood Pressure Mean 105 Blood Pressure Source Monitor Blood Pressure Position Semi-Fowlers Blood Pressure Location Left Arm Pulse Ox 97 97 Oxygen Delivery Method Room Air Room Air Weight Weight: 291 lb Body Mass Index (BMI) 47.0
--- NOTE | 2025-04-14 11:31 | PCM.OPRPT ---
Problems Associated Problem List Diagnoses (1) Bilateral carpal tunnel syndrome: Procedures Musculoskeletal [id number]: Other Procedure See Report Operative Report (Standard) Operative Information Date of Procedure: 04/14/25 Pre-Operative Diagnosis: bilateral CTS Post-Operative Diagnosis: same Surgery/Procedure Performed: bilateral ECTRs postpartum rn: Yes Order Department Supervisor: angelic Tasks completed by equity sales assistant: Retracting Additional criminal legal assistant?: No Type of Anesthesia: General and Local RN Documented Start/Stop Times: Operation Date: 04/14/25 10:45 Case Time Into Pre-Op 04/14/25 09:24 Out of Pre-Op 04/14/25 10:41 Anesthesia Start 04/14/25 10:46 Into Room 04/14/25 10:46 Procedure Start 04/14/25 11:03 Procedure Start Time: 11:03 Procedure Stop Time: 11:32 Select all DRAINS/GRAFTS/IMPLANTS that apply: None Estimated Blood Loss: 10 Specimen collected: No Description of surgery: Patient brought to the operating room theater. Placed upon on the table. 3g iv ancef before the start of the case. GA induced by the anesthetic team. Patient placed supine on the table all bony prominences padded. SCDs on the legs. Hand table used bilateral. Tourniquet applied properly padded to the upper extremites. Upper extremity prepped and draped in the usual sterile fashion with chlorhexidine-based prep solution allowing over 3 minutes drying time prior to draping. Preoperative timeout performed to confirm the site patient and the surgery. Did the same procedure both sides. Began by elevating the limb and inflated the tourniquet to 250 mmHg. I used the [employer] center line endoscopic carpal tunnel kit technique. 2cc 0.25% bupivicaine for local anesthesia. I made a transverse 2 cm incision in line with the? transverse wrist crease.? This was in line with the fourth digit.? I carried the dissection down through skin and subcutaneous tissue achieved meticulous hemostasis. Just ulnar to palmaris tendon.? I incised the antebrachial fascia.? I passed sequential dilators into the carpal tunnel along the radial border of the Guyon's canal aiming for the fourth digit with the hand in extension.? I used a synovial elevator to identify the transverse fibers of the transverse carpal tunnel ligament.? Passed the scope into the carpal tunnel. Once I had identified the full proximal and distal extent of the ligament I fully released the ligament under direct visualization by deploying the blade and slowly withdrawing the scope made sequential passes until I no longer felt tension as well as the entire extent of the ligament was released under direct visualization.? Sounded the tunnel with thakkar tenotomy scissors, complete release, no bands. Arthroscope light was more visible through the skin. More room for the large dilator. Release the forearm fascia also. Pictures taken and saved. Wounds thoroughly irrigated.? Tourniquet let down prior to end of the case and meticulous hemostasis achieved.? Thorough irrigation.? ? Incisions closed with dermabond and 3-0 monocryl. ?Then adaptic 4x4 gauze and cloth tape. Patient woken up,? transferred off the operating room table and taken to postanesthetic care unit in stable condition. All sponge needle instrument counts were correct no complications.?Plan for the patient to be discharged home according to day surgery criteria when they are comfortable. Follow-up in the office in 2 days time. Gentle ROM hand and elbow no heavy lifting. Recommend wrist brace 2 weeks. cpt 11253 x 2 Surgical Findings: as above Complications Complications: No Admit VTE Documentation VTE Present on Admission: No VTE Mechan Device Prophylaxis: SCD's VTE Pharm Prophylaxis ordered?: No Reason prophylaxis not ordered: Treatment Not Indicated
--- NOTE | 2025-04-14 11:34 | EX.PCM.DISCH ---
Discharge Instructions Diet Discharge Diet: No restrictions Activity Discharge Activity: Return to Normal Activity Ice area for (Minutes): 10 Lifting Restrictions: no pushing pulling or lifting Keep extremity elevated above heart level: Operative Extremity Additional Activity Instructions:: wear wrist braces for 2 weeks post op Dressing / Incision Call your doctor if your incision/area has: Continuous Slow Oozing, Sudden Increased Bleeding, Increased Pain/ Swelling, Increased Redness, Foul Smelling Discharge and Swelling at the incision site Call your doctor if you observe: Fever of 101 or Higher, Coldness, Increased Pain and Numbness or Tingling Change Dressing in: leave in place till F/U Cleanse incision/area with: Do not get Incision Wet Follow Up Care Please Follow Up With: Pradeep Chandler MD When: 2 days or within 2 weeks Test Results: Test results from this visit will be discussed in further detail at your follow-up appointment, if applicable. Discharge Plan Admission Attending Provider: Pradeep Chandler Primary Care Provider: Harmony Kurtz NP Instructions Patient Instructions: Carpal Tunnel Release Surgery Print Language: [place] Discharge Orders/Prescriptions Prescriptions: No Action albuterol sulfate 90 mcg/actuation HFA aerosol inhaler 1 inh inhalation Q4H PRN (Reason: shortness of breath or wheezing) fluoxetine 20 mg tablet 40 mg PO DAILY clonazepam 0.5 mg tablet 0.5 mg PO DAILY PRN (Reason: anxiety) loperamide 2 mg capsule 2 mg PO Q6H PRN (Reason: diarrhea) omeprazole 20 mg tablet,delayed release (DR/EC) 20 mg PO QDAY lidocaine-prilocaine 2.5-2.5 % cream 1 applic topical ONCE PRN (Reason: PORT ACCESS) 30 Days Qty: 30 2RF loratadine [Claritin] 10 mg tablet 10 mg PO DAILY calcium carbonate-vitamin D3 200 mg (500 mg) -400 unit tablet 2 tab PO QHS letrozole [Femara] 2.5 mg tablet 2.5 mg PO QHS ondansetron 8 mg tablet,disintegrating 8 mg PO Q8H PRN (Reason: nausea and vomiting) Qty: 30 2RF Referrals / Follow Up: Pradeep Chandler MD [Med Staff - Active Staff] - Harmony Kurtz NP, [employer] ADVISOR-[facility] [Primary Care Provider] - Disposition Disposition (needs filled in before D/C Order can be placed): Home, Self Care
--- NOTE | 2025-04-14 11:59 | PCM.POST.ANE ---
Anesthesia: Postop Eval I Current Vital Signs Temperature: 97.9 F Pulse Rate: 107 Blood Pressure: 152/75 Respiratory Rate: 16 Pulse Ox: 98 Assessment Airway patent: Yes Spontaneous unlabored respirations: Yes nausea: No Vomiting: No Anesthesia Complication: No Fluid Hydration Crystalloid volume administer (ml): 600 Total IV fluid infused: 600 Progress Note Anesthesia document: Postop Eval 1 completed: Yes
[2025-04-14] MEDS: HYDROcodone Bitartrate/Apap 5/325 Tablet PO (12:40)
== END 2025-04-14 13:00 | disposition home or self-care (01) ==
LOC: SDC 09:14 → AC 09:15
PROVIDERS: PCP Nurse Practitioner Family; Referring Provider Orthopaedic Surgery Sports Medicine; Visit Provider Orthopaedic Surgery Sports Medicine
PROC: (CPT 29848; principal; 2025-04-14 10:30)
DX: G56.03 Carpal tunnel syndrome, bilateral upper limbs (principal); F41.9 Anxiety disorder, unspecified; K21.9 Gastro-esophageal reflux disease without esophagitis; F32.A Depression, unspecified; J45.909 Unspecified asthma, uncomplicated; Z86.718 Personal history of other venous thrombosis and embolism; Z79.899 Other long term (current) drug therapy
CPT/HCPCS: 29848; 01810; A4216; J2405

== ENCOUNTER → 2025-08-17 | Outpatient (CLI) | payer OTHER, MEDICAID, SELFPAY ==
--- NOTE | 2025-08-17 07:55 | CT_ITS ---
PROCEDURE: CT CHEST, ABD, PEL W/CONTRAST 08/17/2025 REASON FOR EXAM: F/U OVARIAN CANCER TECHNIQUE: Chest, abdomen and pelvis CT with intravenous contrast. Coronal and Sagittal reconstruction series were provided. One or more dose reduction techniques were used (e.g., Automated exposure control, adjustment of the mA and/or kV according to patient size, use of iterative reconstruction technique. PATIENT PREPARATION: Per protocol CONTRAST: 100 cc of Isovue 370. Enteric contrast was also administered. Lung changes COMPARISON: CT chest, abdomen and pelvis 02/11/2025 FINDINGS: CT CHEST: Hardware: Right-sided MediPort catheter visualized. Lymph nodes: No enlarged mediastinal, hilar, or axillary lymph nodes. Heart and Vasculature: Nonenlarged. No pericardial effusion. Lungs and Airways: Lungs are clear. Airways are patent. Pleura: No pleural effusion or pneumothorax. Bones: Degenerative changes of the thoracic spine. No destructive osseous lesions. CT ABDOMEN/PELVIS: Liver: Enlarged measuring 22.3 cm craniocaudally. Diffuse fatty infiltration. No obvious hepatic mass. Gallbladder: Unremarkable. No biliary ductal dilatation. Spleen: Normal size. Pancreas: Normal size without evidence of mass surrounding inflammation or ductal dilation. Adrenals: No adrenal masses. Kidneys: Normal renal sizes. No hydronephrosis. Bladder: Unremarkable. Reproductive Organs: Prior hysterectomy. Adnexal regions are unremarkable. Bowel: No bowel obstruction. No inflammatory changes. Appendix: Not visualized and likely surgically absent. Lymph nodes: Unremarkable. Vasculature: Mild diffuse atherosclerotic calcifications are noted. Peritoneum / Retroperitoneum: No free fluid or air. Bones: Degenerative changes of the spine. No destructive osseous lesions. CT/CT Chest, Abd, Pel w/Contrast IMPRESSION: 1. No evidence of residual or metastatic disease chest, abdomen or pelvis. 2. Hysterectomy and probable appendectomy. 3. Hepatomegaly and moderate diffuse hepatic steatosis. Reading Location[facility]
--- OUTSIDE RECORDS SUMMARY | 2025-08-17 08:01 | XMS RPT_ITS | CCD ---
Author Organization [facility] Care Team Providers Care Shared Services And Outsourcing Manager Name Role Phone HCETOR SAUNDERS, DIMA Primary Care Physician PHYSICIAN, NOT RECORDED Primary Care Physician U jarrellailkana SAUNDERS, ADAN Wilkinson Primary Care Physicia n Addis Lara Unavailable Unavailable ANA WATSON MD Attending Unavailable RADHA SAUNDERS, ADAN Wilkinson Primary Care Unava ilable HALLUM, JELANI Consulting Unavailable RADHA SAUNDERS, ADAN Wilkinson Primary Care Unava ilable HALLUM, JELANI Attending Unavailable PHYSICIAN, NOT RECORDED Primary Care Unavaila CAROLINE Oates Attending Unavailable RADHA SAUNDERS, ADAN Wilkinson Primary Care Unava ilable GEMMA FENG DO Attending Unavailable KATHRIN VENCES Attending Unavailable RADHA SAUNDERS, ADAN Wilkinson Primary Care Unava ilable CAROLINE SIMMONS Attending Unavailable HECTOR SAUNDERS, DIMA Primary Care Unavaila CAROLINE Oates Attending Unavailable HECTOR SAUNDERS, DIMA Primary Care Unavaila celestine SAUNDERS, ADAN Wilkinson Primary Care Unava ilable PETER FERRIS Attending Unavailable PETER FERRIS Attending Unavailable RADHA SAUNDERS, ADAN Wilkinson Primary Care Unava ilable CAROLINE SIMMONS Attending Unavailable HECTOR SAUNDERS, DIMA Primary Care Unavaila CAROLINE Oates Attending Unavailable HECTOR SAUNDERS, DIMA Primary Care Unavaila PETER Blank Attending Unavailable RADHA SAUNDERS, ADAN Wilkinson Primary Care Unava ilable PETER FERRIS Attending Unavailable RADHA SAUNDERS, ADAN Wilkinson Primary Care Unava ilable RADHA SAUNDERS, ADAN Wilkinson Primary Care Unava ilable HALLUM, JELANI Attending Unavailable RADHA SAUNDERS, ADAN D Primary Care Unava ilable HALLUM, JLEANI Attending Unavailable JEANNE STANLEY Attending Unavailable RADHA COMPRESSOR ASSEMBLER-UPKEEP WORKER, ADAN D Primary Care Unava ilable CASTAGNO, JESSICA Attending Unavailable RADHA COMPRESSOR ASSEMBLER-UPKEEP WORKER, ADAN D Primary Care Unava ilable CASTAGNO, JESSICA Attending Unavailable RADHA COMPRESSOR ASSEMBLER-UPKEEP WORKER, ADAN D Primary Care Unava ilable CE JERONIMO MD Consulting Unavailable RADHA COMPRESSOR ASSEMBLER-UPKEEP WORKER, ADAN D Primary Care Unava ilable HALLUM, JELANI Attending Unavailable SANDRA MANUEL Attending Unavailable RADHA COMPRESSOR ASSEMBLER-UPKEEP WORKER, ADAN D Primary Care Unava ilable SPRING HARDEN, DR CALDERON Consulting Unavailab fadia CRANDALL MD, ESSIE Admitting Unavailable CASTAGNO, JESSCIA Consulting Unavailable RADHA COMPRESSOR ASSEMBLER-UPKEEP WORKER, ADAN D Primary Care Unava ilable HALLUM, JELANI Attending Unavailable PETER FERRIS Attending Unavailable RADHA COMPRESSOR ASSEMBLER-UPKEEP WORKER, ADAN D Primary Care Unava ilable Gio Rounding Nurse, Mitchell Unavailable Unavai rita MACHADO DO, DR HENRY Attending Unavailable CARLOS RM, DR HENRY Referring Unavailable [place] COMPRESSOR ASSEMBLER-UPKEEP WORKER, December Admitting Unavail able RADHA COMPRESSOR ASSEMBLER-UPKEEP WORKER, ADAN D Primary Care Unava ilable Radha PEN TESTER-C, Adan Primary Care Provider Radha PEN TESTER-C, Adan Referring Provider Nitesh PEN TESTER-C, Ellen Attending Provider Nitesh PEN TESTER-C, Ellen Referring Provider Nitesh PEN TESTER-C, Ellen Other Provider Marly PEN TESTER-C, Ramona Attending Provider Dr. Coco Lima MD Attending Provider Dr. Coco Lima MD Referring Provider Pradeep Chandler MD Attending Provider BARRINGTON LOYAN-UPKEEP WORKER, PETER Butt Attending Unavail able RADHA COMPRESSOR ASSEMBLER-UPKEEP WORKER, ADAN D Primary Care Unava jania CHAKRABORTY MD, DR RAMESH Admitting Unavailab le RADHA COMPRESSOR ASSEMBLER-UPKEEP WORKER, ADAN D Primary Care Unava ilable RADHA COMPRESSOR ASSEMBLER-UPKEEP WORKER, ADAN D Consulting Unava ilable JAYDON HARDEN, BASILIO Johnson Attending Unavailcharly FIGUEROA MD, REANNA Johnson Consulting Unavailable FAYE HARDEN, ERICH Consulting Unavailable LAURA HARDEN, MELANIE H Consulting Unavailable JAYA HARDEN, PORSHA Wilkinson Attending Unavailable PHIL HARDEN, ESSIE Admitting Unavailable SPRING HARDEN, DR CALDERON Consulting Unavailab le RADHA COMPRESSOR ASSEMBLER-UPKEEP WORKER, ADAN D Primary Care Unava ilable JESSICA PALACIO MD Consulting Unavaila ble FERRIS COMPRESSOR ASSEMBLER-UPKEEP WORKER, PETER Butt Attending Unavail able RADHA COMPRESSOR ASSEMBLER-UPKEEP WORKER, ADAN D Primary Care Unava ilable LIZETH HARDEN, JEANNE Attending Unavailable RADHA COMPRESSOR ASSEMBLER-UPKEEP WORKER, ADAN D Primary Care Unava ilable FERRIS COMPRESSOR ASSEMBLER-UPKEEP WORKER, PETER Butt Attending Unavail able RADHA COMPRESSOR ASSEMBLER-UPKEEP WORKER, ADAN D Primary Care Unava ilable Radha PEN TESTER-C, Adan Primary Care Provider Janie HARDEN, Dr. Sepulveda Attending Provider Dr. Coco Lima MD Referring Provider Radha PEN TESTER-C, Adan Referring Provider [phone] John HARDEN, Dr. Fox Camargo Attending Provider Dr. Fox Lopez MD Referring Provider Pradeep Chandler MD Attending Provider Nitesh PEN TESTER-C, Ellen Other Provider Janie HARDEN, Dr. Sepulveda Other Provider Nitesh PEN TESTER-C, Ellen Attending Provider Nitesh PEN TESTER-C, Ellen Referring Provider Dr. Mervat Guerra DO Attending Provider Pradeep Chandler MD Referring Provider Pradeep Chandler MD Other Provider Azucena HARDEN, Dr. Tiwari Attending Provider Radha PEN TESTER-C, Adan Primary Care Provider [phone] Radha PEN TESTER-C, Adan Referring Provider Radha PEN TESTER-C, Adan Primary Care Provider Radha PEN TESTER-C, Adan Referring Provider Janie HARDEN, Dr. Sepulveda Attending Provider Janie HARDEN, Dr. Sepulveda Referring Provider Radha PEN TESTER-C, Adan Primary Care Provider Radha PEN TESTER-C, Adan Referring Provider Geraldine HARDEN, Pradeep Attending Provider Dr. Coco Lima MD Attending Provider Janie HARDEN, Dr. Sepulveda Referring Provider Nitesh PEN TESTER-C, Ellen Other Provider Radha PEN TESTER-C, Adan Primary Care Provider Radha PEN TESTER-C, Adan Referring Provider Pradeep Chandler MD Attending Provider ADAN GARCIA CNP Admitting Unavailable ADAN GARCIA CNP Attending Unavailable ADAN GARCIA CNP Primary Care Unavailable ADAN GARCIA CNP Consulting Unavailable PROVIDER, UNKNOWN Consulting Unavailable PROVIDER, UNKNOWN Consulting Unavailable ADAN GARCIA UPKEEP WORKER Admitting Unavailable ADAN GARCIA CNP Attending Unavailable ADAN GARCIA UPKEEP WORKER Primary Care Unavailable ADAN GARCIA CNP Consulting Unavailable PROVIDER, UNKNOWN Consulting Unavailable PROVIDER, UNKNOWN Consulting Unavailable Ungur, Remus Attending Unavailable Radha PEN TESTER, Adan Primary Care Unavailable Radha PEN TESTER, Adan Primary Care Unavailable John, Fox K Attending Unavailable John, Fox K Referring Unavailable Radha PEN TESTER, Adan Primary Care Unavailable Coco Lima Referring Unavailable Coco Lima Attending Unavailable Mollison, Pradeep Referring Unavailable Mollison, Pradeep Consulting Unavailable Mollison, Pradeep Attending Unavailable Radha PEN TESTER, Adan Primary Care Unavailable Mollison, Pradeep Referring Unavailable Mollison, Pradeep Consulting Unavailable Radha PEN TESTER, Adan Primary Care Unavailable Te Zeng Attending Unavailable Marly PEN TESTER, Ramona Attending Unavailable Radha PEN TESTER, Adan Primary Care Unavailable Nitesh PEN TESTER, Ellen Referring Unavailable Nitesh PEN TESTER, Ellen Consulting Unavailable Radha PEN TESTER, Adan Referring Unavailable Radha PEN TESTER, Adan Primary Care Unavailable Blaine Dc Attending Unavailable Isckarus, Mansour Referring Unavailable Isckarus, Mansour Attending Unavailable Radha PEN TESTER, Adan Primary Care Unavailable Nitesh PEN TESTER, Ellen Attending Unavailable Radha PEN TESTER, Adan Referring Unavailable Radha PEN TESTER, Adan Primary Care Unavailable Radha PEN TESTER, Adan Referring Unavailable Radha PEN TESTER, Adan Primary Care Unavailable Isckarus, Mansour Attending Unavailable Mollison, Pradeep Attending Unavailable Radha PEN TESTER, Adan Referring Unavailable Radha PEN TESTER, Adan Primary Care Unavailable Radha PEN TESTER, Adan Referring Unavailable Isckarus, Mansour Attending Unavailable Radha PEN TESTER, Adan Primary Care Unavailable Radha PEN TESTER, Adan Referring Unavailable Isckarus, Mansour Attending Unavailable Radha PEN TESTER, Adan Primary Care Unavailable Mollison, Pradeep Attending Unavailable Radha PEN TESTER, Adan Referring Unavailable Radha PEN TESTER, Adan Primary Care Unavailable Mollison, Pradeep Attending Unavailable Radha PEN TESTER, Adan Referring Unavailable Radha PEN TESTER, Adan Primary Care Unavailable Mollison, Pradeep Attending Unavailable Radha PEN TESTER, Adan Referring Unavailable Radha PEN TESTER, Adan Primary Care Unavailable Isckarus, Mansour Attending Unavailable Radha PEN TESTER, Adan Primary Care Unavailable Isckarus, Mansour Referring Unavailable Radha PEN TESTER, Adan Primary Care Unavailable Isckarus, Mansour Consulting Unavailable Nitesh PEN TESTER, Ellen Attending Unavailable Nitesh PEN TESTER, Ellen Referring Unavailable Isckarus, Mansour Referring Unavailable Isckarus, Mansour Attending Unavailable Radha PEN TESTER, Adan Primary Care Unavailable Radha PEN TESTER, Adan Primary Care Unavailable Nitesh PEN TESTER, Ellen Referring Unavailable Nitesh PEN TESTER, Ellen Attending Unavailable Mollison, Pradeep Attending Unavailable Mollison, Pradeep Referring Unavailable Radha PEN TESTER, Adan Primary Care Unavailable Radha PEN TESTER, Adan Referring Unavailable Isckarus, Mansour Attending Unavailable Radha PEN TESTER, Adan Primary Care Unavailable Radha PEN TESTER, Adan Referring Unavailable Radha PEN TESTER, Adan Primary Care Unavailable Nitesh PEN TESTER, Ellen Attending Unavailable Mollison, Pradeep Attending Unavailable Radha PEN TESTER, Adan Referring Unavailable Radha PEN TESTER, Adan Primary Care Unavailable Mollison, Pradeep Attending Unavailable Radha PEN TESTER, Adan Referring Unavailable Radha PEN TESTER, Adan Primary Care Unavailable Radha PEN TESTER, Adan Referring Unavailable Radha PEN TESTER, Adan Primary Care Unavailable Isckarus, Mansour Attending Unavailable Coco Lima Attending Unavailable Nitesh PEN TESTER, Ellen Attending Unavailable Radha PEN TESTER, Adan Primary Care Unavailable Nitesh PEN TESTER, Ellen Referring Unavailable Nitesh PEN TESTER, Ellen Attending Unavailable Pradeep Chandler Referring Unavailable Pradeep Chandler Attending Unavailable Radha PEN TESTER, Adan Primary Care Unavailable Coco Lima Attending Unavailable Coco Lima Referring Unavailable Radha PEN TESTER, Adan Primary Care Unavailable Nitesh PEN TESTER, Ellen Consulting Unavailable Allergies Allergy Classification Reported Allergen(s) Allergy Type Date of Onset Reaction(s) Facility (17 sources) PACLitaxel; Translations: [paclitaxel] Drug Allergy 04-22-2024 anaphylaxis [facility] (1 source) PACLitaxel Drug Allergy 05-31-2025 [facility] Repository Medications Current Medications Medication Drug Class(es) Dates Sig (Normalized) Sig (Original) [id number] 200 actuat albuterol 0.09 mg/actuat metered dose inhaler (11 sources) beta2-Adrenergic Agonist Start: 05-14-2024 Albuterol Sulfate 90 mcg/actuation HFA aerosol inhaler Active 1 NMA INHALATION Q4H as needed for shortness of breath or wheezing May 14, 2024 12:00am Start: 05-14-2024 Albuterol Sulf ate 90 mcg/actuation HFA aerosol inhaler Active 1 NMA INHALATION ONCE May 14, 2024 12:00am albuterol MDI (90 mcg/inh) CFC free inhalation aerosol (12 sources) Start: 03-30-2024 take 1 puff(s) by inhalation every four hours as needed for wheezing albuterol MDI (90 mcg/inh) CFC free inhalation aerosol 1 puff(s), Inhalation, q4h, PRN as needed for wheezing, 0 Refill(s) Start Date: 03/30/24 Status: Ordered Start: 03-30-2024 take 1 puff(s) by in halation every four hours as needed for wheezing albuterol MDI (90 mcg/inh) CFC free inhalation aerosol 1 puff(s), Inhalation, q4h, PRN as needed for wheezing, # 18 gram(s), 0 Refill(s) Start Date: 03/30/24 Status: Ordered amoxicillin 500 mg / clavulanate 125 mg oral tablet (1 source) Penicillin-class Antibacterial Start: 04-11-2024 End: 04-21-2024 take 1 tablet by mouth every twelve hours Augmentin 500 mg-125 mg oral tablet 1 tab(s), Oral, q12h, X 10 day(s), # 20 tab(s), 0 Refill(s), 04/21/24 12:25:00 AM EDT, Pharmacy: [id number], 165.1, cm, 04/10/24 23:15:00 EDT, Height, 128.18, kg, 04/10/24 23:15:00 EDT, Dosing Weight Start Date: 04/11/24 Stop Date: 04/21/24 Status: Ordered Calcium Carbonate-Vitamin D3 200 mg (500 mg) -400 unit tablet (5 sources) Start: 04-06-2025 Calcium Carbonate-Vitamin D3 200 mg (500 mg) -400 unit tablet Active 2 {tbl} PO AT BEDTIME April 06, 2025 12:00am clindamycin 300 mg oral capsule (1 source) Lincosamide Antibacterial Start: 05-31-2025 take 1 capsule by mouth three times daily Clindamycin Hcl 300 mg capsule Active 300 mg PO THREE TIMES A DAY May 31, 2025 12:00am clonazePAM 0.5 mg oral tablet (20 sources) Benzodiazepine Start: 12-09-2024 take 1 tablet by mouth once daily as needed for anxiety Clonazepam 0.5 mg tablet Active 0.5 mg PO DAILY as needed for anxiety December 09, 2024 1:36pm Start: 07-29-2024 End: 12-09-2024 take 0.25 mg by mouth once daily as needed Clonazepam 0.5 mg tablet Discontinued 0.25 mg PO DAILY as needed July 29, 2024 2:01pm December 09, 2024 1:36pm Start: 03-30-2024 End: 07-29-2024 take 1 tablet by mouth once daily Clonazepam 0.5 mg tablet Discontinued 0.5 mg PO DAILY May 14, 2024 12:00am July 29, 2024 2:02pm Start: 10-13-2020 End: 10-20-2020 KlonoPIN 0.5 mg oral tablet Dose : 0.5 mg = 1 tab(s), Oral, qDay, # 7 tab(s), 0 Refill(s), [facility], Anxiety state, 167.6, cm, 10/13/20 7:51:00 EST, Height, 126.2, kg, 10/13/20 7:51:00 EST, Dosing Weight Start Date: 10/13/20 Stop Date: 10/20/20 Status: Ordered diphenhydrAMINE (4 sources) Histamine-1 Receptor Antagonist Start: 04-27-2024 Magic mouthwash ([id number]-Dusqbqcun-Mycostatin) See Instructions, 2 teaspoonful(s)swish and swallow q 4 hrs as needed for mouth sores. Do not eat or drink for 30 min after taking., # 240 mL, 1 Refill(s), Pharmacy: [facility], Compound, 165.1, cm, 04/23/24 10:08:00 EDT, Height, kg, 04/22/24 10:20:00 EDT, Dosing Weight Start Date: 04/27/24 Status: Ordered docusate sodium 100 mg oral capsule (4 sources) Start: 04-03-2024 End: 05-03-2024 Colace 100 mg oral capsule D ose : 100 mg = 1 cap(s), Oral, BID, PRN for constipation, # 60 cap(s), 0 Refill(s), Pharmacy: [id number], 165.1, cm, 04/03/24 9:58:00 EDT, Height, kg, 04/03/24 9:58:00 EDT, Dosing Weight Start Date: 04/03/24 Stop Date: 05/03/24 Status: Ordered FLUoxetine 20 mg oral tablet (20 sources) Serotonin Reuptake Inhibitor Start: 12-09-2024 take 2 tablets by mouth once daily Fluoxetine 20 mg tablet Active 40 mg PO DAILY December 09, 2024 1:36pm Start: 05-14-2024 End: 12-09-2024 take 1 tablet by mouth once daily Fluoxetine 20 mg tablet Discontinued 20 mg PO DAILY May 14, 2024 12:00am December 09, 2024 1:36pm Start: 03-30-2024 FLUoxetine 20 mg oral capsule Dose : 20 mg = 1 cap(s), Oral, qDay, 0 Refill(s) Start Date: 03/30/24 Status: Ordered Start: 10-13-2020 FLUoxetine 40 mg oral capsule Dose : 40 mg = 1 cap(s), take 1 capsule by mouth once daily Start Date: 10/13/20 Status: Ordered ibuprofen 600 mg oral tablet (3 sources) Nonsteroidal Anti-inflammatory Drug Start: 04-03-2024 End: 04-10-2024 ibuprofen 600 mg oral tablet Dose : 600 mg = 1 tab(s), Oral, q6hr, X 7 day(s), # 28 tab(s), 0 Refill(s), 04/10/24 3:15:00 PM EDT, Pharmacy: 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 Magic Mouth Wash (Bmx) 180 mL suspension (14 sources) Start: 05-19-2025 Magic Mouth Wa sh (Bmx) 180 mL suspension Active 15 mL PO .Q6HR 180 5 May 19, 2025 12:00am Stomatitis Other forms of stomatitis diphenhydramine 12.5 mg/5 mL oral liquid 60 mL; aluminum-mag hydroxide-simethicone 400 mg-400 mg-40 mg/5 mL oral susp 60 mL; Lidocaine Viscous 2 % mucosal solution 60 mL; Per 180 mL Start: 05-14-2024 End: 04-06-2025 Magic Mouth Wash (Bmx) 180 m L suspension Discontinued mL PO 180 May 14, 2024 12:00am April 06, 2025 11:25am Start: 05-14-2024 Magic Mouth Wa sh (Bmx) 180 mL suspension Active mL PO 180 May 14, 2024 12:00am Multivitamin preparation (13 sources) Start: 03-10-2024 take 1 tablet by mouth once daily Multivitamin Dose = 1 tab(s), Oral, qDay, 0 Refill(s) Start Date: 03/10/24 Status: Ordered Start: 03-10-2024 take 1 tablet by rachel th once daily Multivitamin Dose = 1 tab(s), Oral, Daily, 0 Refill(s) Start Date: 03/10/24 Status: Ordered mupirocin 0.02 mg/mg topical ointment (4 sources) RNA Synthetase Inhibitor Antibacterial Start: 03-30-2024 mupirocin 2% topical ointment Apply 1 roma, Topical, BID, Bilateral intranasal application twice daily x 5 days pre-surgery &/or as many days pre-surgery as possible., Apply to: nostril, each, # 22 gram(s), 0 Refill(s), Pharmacy: [id number], Ointment, 166.4, cm, 03/30/24 7:12:00 EDT, Height, 126.5, kg, 03/30/24 7:12:00 EDT, Dosing Weight Start Date: 03/30/24 Status: Ordered omeprazole 20 mg oral tablet (13 sources) Proton Pump Inhibitor Start: 08-03-2024 take 1 dose by mouth once daily omeprazole Dose : 20 mg =, Oral, qDay, 0 Refill(s) Start Date: 08/03/24 Status: Ordered Start: 06-04-2024 take 1 tablet by rachel once daily Omeprazole 20 mg tablet,delayed release (DR/EC) Active 20 mg PO daily June 04, 2024 12:00am Completed/Discontinued Medications Medication Drug Class(es) Dates Sig (Normalized) Sig (Original) acetaminophen 325 mg / HYDROcodone bitartrate 5 mg oral tablet (2 sources) Opioid Agonist Start: 05-21-2024 End: 05-28-2024 take 1 tablet by mouth every six hours as needed for pain acetaminophen-hydr ocodone 325 mg-5 mg oral tablet Dose = 1 tab(s), Oral, q6h, PRN for pain, # 28 tab(s), 0 Refill(s), Pharmacy: [facility], Carcinoma of right ovary Cancer-related pain, 165, cm, 05/17/24 23:14:00 EDT, Height, 125, kg, 05/17/24 23:14:00 EDT, Dosing Weight Start Date: 05/21/24 Stop Date: 05/28/24 Status: Ordered acetaminophen 325 mg / oxyCODONE hydrochloride 5 mg oral tablet (11 sources) Opioid Agonist Start: 04-15-2014 End: 10-19-2024 Oxycodone-Acetamin ophen 1 TABLET tablet Discontinued 1 - 2 {tbl} PO EVERY 4 HOURS NEEDED as needed for Moderate Pain 20 0 April 15, 2014 12:00am October 19, 2024 2:08pm amoxicillin 500 mg oral capsule (13 sources) Penicillin-class Antibacterial Start: 07-21-2024 End: 08-11-2024 take 1 capsule by mouth every eight hours Amoxicillin 500 mg capsule Discontinued 500 mg PO Q8H 21 0 July 21, 2024 1:00am August 11, 2024 11:24am Urinary tract infection Urinary tract infection, site not specified Start: 05-20-2024 End: 05-25-2024 amoxicillin 500 mg oral caps ule Dose : 500 mg = 1 cap(s), Oral, TID, X 5 day(s), # 15 cap(s), 0 Refill(s), 05/25/24 2:18:00 PM EDT, Pharmacy: [facility], 165, cm, 05/17/24 23:14:00 EDT, Height, kg, 05/17/24 23:14:00 EDT, Dosing Weight Start Date: 05/20/24 Stop Date: 05/25/24 Status: Ordered Start: 01-06-2023 End: 01-16-2023 amoxicillin 500 mg oral tabl et Dose : 500 mg = 1 tab(s), Oral, BID, X 10 day(s), # 20 tab(s), 0 Refill(s), 01/16/23 3:32:00 EDT Start Date: 01/06/23 Stop Date: 01/16/23 Status: Ordered apixaban 2.5 mg oral tablet (16 sources) Factor Xa Inhibitor Start: 05-14-2024 End: 06-04-2024 take 1 tablet by mouth twice daily Apixaban (Eliquis) 2.5 mg tablet Discontinued 2.5 mg PO TWICE A DAY May 14, 2024 12:00am June 04, 2024 8:47am Start: 04-10-2024 End: 04-24-2024 Eliquis 2.5 mg oral tablet D ose : 2.5 mg = 1 tab(s), Oral, BID, # 28 tab(s), 0 Refill(s), Pharmacy: [id number], 165.1, cm, 04/10/24 9:38:00 EDT, Height, 128.4, kg, 04/10/24 9:38:00 EDT, Dosing Weight Start Date: 04/10/24 Stop Date: 04/24/24 Status: Ordered cefdinir 300 mg oral capsule (12 sources) Cephalosporin Antibacterial Start: 08-06-2024 End: 10-19-2024 take 1 capsule by mouth twice daily Cefdinir 300 mg capsule Discontinued 300 mg PO TWICE A DAY August 11, 2024 1:00am October 19, 2024 2:06pm cetirizine hydrochloride 10 mg oral capsule (11 sources) Histamine-1 Receptor Antagonist Start: 04-13-2014 End: 05-14-2024 Cetirizine (Zyrtec) 10 MG capsule Discontinued 10 mg PO NEEDED as needed for Allergies April 13, 2014 12:00am May 14, 2024 1:51pm ciprofloxacin 500 mg oral tablet (11 sources) Quinolone Antimicrobial Start: 07-02-2024 End: 07-15-2024 take 1 tablet by mouth twice daily Ciprofloxacin Hcl (Cipro) 500 mg tablet Discontinued 500 mg PO TWICE A DAY 10 July 02, 2024 12:00am July 15, 2024 9:41am Urinary tract infection Urinary tract infection, site not specified dexamethasone 4 mg oral tablet (20 sources) Corticosteroid Start: 06-17-2024 End: 04-06-2025 take 2 tablets by mouth once daily Dexamethasone 4 mg tablet Discontinued 8 mg PO .COMPLEX 12 2 June 17, 2024 12:00am April 06, 2025 11:24am 8 mg orally ONLY the day before, the day of, and day after chemotherapy Start: 05-14-2024 End: 06-17-2024 take 1 tablet by mouth once daily Dexamethasone 4 mg tablet Discontinued 4 mg PO DAILY May 14, 2024 12:00am June 17, 2024 2:55pm Start: 04-22-2024 take 2 tablets by [facility] twice daily dexAMETHasone 4 mg oral tablet See Instructions, 2 tabs twice a day, the day before chemo., # 30 tab(s), 0 Refill(s), Pharmacy: [id number], 165.1, cm, 04/22/24 10:20:00 EDT, Height, kg, 04/22/24 10:20:00 EDT, Dosing Weight Start Date: 04/22/24 Status: Ordered dicyclomine hydrochloride 20 mg oral tablet (14 sources) Anticholinergic Start: 05-20-2024 End: 04-06-2025 take 1 tablet by mouth four times daily as needed Dicyclomine 20 mg tablet Discontinued 20 mg PO .QID as needed June 04, 2024 12:00am April 06, 2025 11:25am Lovenox (2 sources) Low Molecular Weight Heparin Start: 08-04-2024 inject 0.4 mL by subcutaneous injection once daily Lovenox Dose : 40 mg = 0.4 mL, Subcutaneous, qDay, 0 Refill(s) Start Date: 08/04/24 Status: Ordered letrozole 2.5 mg oral tablet (18 sources) Aromatase Inhibitor Start: 05-13-2024 End: 04-06-2025 take 1 tablet by mouth once daily Letrozole (Femara) 2.5 mg tablet Discontinued 2.5 mg PO daily 30 30 12 September 02, 2024 1:00am April 06, 2025 11:27am Malignant neoplasm of ovary Malignant neoplasm of bilateral ovaries Levaquin (1 source) Quinolone Antimicrobial Start: 08-04-2024 Levaquin Dose : 750 mg = 150 mL, IV Piggyback, q24h, 0 Refill(s), 124.2 Start Date: 08/04/24 Status: Ordered loperamide hydrochloride 2 mg oral capsule (12 sources) Opioid Agonist Start: 06-04-2024 End: 05-19-2025 take 1 capsule by mouth every six hours as needed for diarrhea Loperamide 2 mg capsule Discontinued 2 mg PO EVERY 6 HOURS as needed for diarrhea June 04, 2024 12:00am May 19, 2025 1:33pm Start: 05-20-2024 End: 05-27-2024 take 1 tablet by mouth three times daily as needed for diarrhea Imodium A-D 2 mg oral tablet Dose : 2 mg =, Oral, TID, PRN Diarrhea, X 7 day(s), # 21 tab(s), 0 Refill(s), 05/27/24 2:15:00 PM EDT, Pharmacy: [facility], 165, cm, 05/17/24 23:14:00 EDT, Height, kg, 05/17/24 23:14:00 EDT, Dosing Weight Start Date: 05/20/24 Stop Date: 05/27/24 Status: Ordered loratadine 10 mg oral tablet (20 sources) Start: 04-22-2024 End: 04-06-2025 take 1 tablet by mouth once daily Loratadine (Claritin) 10 mg tablet Discontinued 10 mg PO DAILY May 14, 2024 12:00am April 06, 2025 11:25am Start: 10-13-2020 take 1 dose by mouth once elio y loratadine Dose : 10 mg =, Oral, qDay, 0 Refill(s) Start Date: 10/13/20 Status: Ordered Multivitamin tablet (11 sources) Start: 05-14-2024 End: 06-04-2024 Multivitamin tablet Discontinued 1 {tbl} PO DAILY May 14, 2024 12:00am June 04, 2024 8:48am nystatin [id number] unt/ml topical cream (20 sources) Polyene Antifungal Start: 07-21-2024 End: 04-06-2025 Nystatin 100,000 unit/gram cream Discontinued 1 NMA TOPICAL TWICE A DAY 15 10July 21, 2024 1:00am April 06, 2025 11:25am Candidiasis of breast Other sites of candidiasis Start: 06-04-2024 End: 07-15-2024 take 1 mL by mouth every six hours as needed Nystatin 100,000 unit/mL suspension Discontinued 5 mL PO EVERY 6 HOURS NEEDED June 04, 2024 12:00am July 15, 2024 10:11am swish and swallow Start: 05-20-2024 End: 05-30-2024 take 1 dose by mouth every six hours nystatin 100,000 units/mL oral suspension Dose : 500,000 unit(s) = 5 mL, Swish & Swallow, q6h, X 10 day(s), # 200 mL, 0 Refill(s), 05/30/24 2:19:00 PM EDT, Pharmacy: [facility], 165, cm, 05/17/24 23:14:00 EDT, Height, kg, 05/17/24 23:14:00 EDT, Dosing Weight Start Date: 05/20/24 Stop Date: 05/30/24 Status: Ordered Start: 04-10-2024 End: 04-17-2024 nystatin 100,000 units/g top ical powder Apply 1 roma, Topical, BID, X 7 day(s), # 60 gram(s), 0 Refill(s), Pharmacy: [facility], Powder, 165.1, cm, 04/10/24 9:38:00 EDT, Height, 128.4, kg, 04/10/24 9:38:00 EDT, Dosing Weight Start Date: 04/10/24 Stop Date: 04/17/24 Status: Ordered Nystatin 100,000 unit/mL suspension (11 sources) Start: 07-15-2024 End: 04-06-2025 take 1 mL by mouth every six hours as needed Nystatin 100,000 unit/mL suspension Discontinued 5 mL PO EVERY 6 HOURS NEEDED 473 0 July 15, 2024 10:11am April 06, 2025 11:25am Candidiasis of mouth Candidal stomatitis swish and swallow Start: 07-15-2024 take 1 mL by mouth e very six hours as needed Nystatin 100,000 unit/mL suspension Active 5 mL PO EVERY 6 HOURS NEEDED 473 0 July 15, 2024 10:11am Candidiasis of mouth Candidal stomatitis swish and swallow Start: 07-15-2024 take 1 mL by mouth e very six hours as needed Nystatin 100,000 unit/mL suspension Active 5 mL PO EVERY 6 HOURS NEEDED 473 July 15, 2024 10:11am swish and swallow ondansetron 8 mg disintegrating oral tablet (20 sources) Serotonin-3 Receptor Antagonist Start: 06-04-2024 End: 05-19-2025 take 1 tablet by mouth every eight hours as needed for nausea and vomiting Ondansetron 8 mg tablet,disintegrating Discontinued 8 mg PO Q8H as needed for nausea and vomiting 30 August 12, 2024 11:51am May 19, 2025 1:35pm Start: 05-14-2024 End: 06-04-2024 take 1 tablet by mouth every eight hours Ondansetron 4 mg tablet,disintegrating Discontinued 4 mg PO Q8H May 14, 2024 12:00am June 04, 2024 9:18am Start: 04-14-2024 ondansetron 4 mg oral tablet Dose : 4 mg = 1 tab(s), Oral, q6h, prn nausea, # 30 tab(s), 2 Refill(s), Pharmacy: [facility], 165.1, cm, 04/10/24 23:15:00 EDT, Height, kg, 04/10/24 23:15:00 EDT, Dosing Weight Start Date: 04/14/24 Status: Ordered oxyCODONE hydrochloride 5 mg oral tablet (4 sources) Opioid Agonist Start: 04-03-2024 End: 04-08-2024 oxyCODONE 5 mg oral tablet ( IMMEDIATE release ) Dose : 5 mg = 1 tab(s), Oral, q6h, PRN for pain, # 20 tab(s), 0 Refill(s), Pharmacy: [facility], Post-op pain, 165.1, cm, 04/03/24 9:58:00 EDT, Height, 124.4, kg, 04/03/24 9:58:00 EDT, Dosing Weight Start Date: 04/03/24 Stop Date: 04/08/24 Status: Ordered Vit,Mona 65-[id number]-Itvkv (Prenatabs Fa ) 1 TABLET tablet (3 sources) Start: 09-16-2013 End: 05-14-2024 take 1 tablet by mouth once daily Vit,Mona 99-Sphp-Nckxl (Prenatabs Fa ) 1 TABLET tablet Discontinued 1 {tbl} PO DAILY September 16, 2013 1:00am May 14, 2024 1:52pm Vit,Khtq69-Qxvv-Dfjzr (Prenatabs Fa ) 1 TABLET tablet (8 sources) Start: 09-16-2013 End: 05-14-2024 take 1 tablet by mouth once daily Vit,Ykad49-Saoi-Roasa (Prenatabs Fa ) 1 TABLET tablet Discontinued 1 {tbl} PO DAILY September 16, 2013 1:00am May 14, 2024 1:52pm prochlorperazine 10 mg oral tablet (11 sources) Phenothiazine Start: 06-04-2024 End: 04-06-2025 take 1 tablet by mouth every six hours as needed for nausea and vomiting Prochlorperazine Maleate 10 mg tablet Discontinued 10 mg PO EVERY 6 HOURS as needed for nausea and vomiting 30 2 June 04, 2024 12:00am April 06, 2025 11:26am Chemotherapy-induced nausea and vomiting Nausea with vomiting, unspecified Adverse effect of antineoplastic and immunosuppressive drugs, initial encounter Problems Active Problems Problem Classification Problem Date Documented Da te Episodic/Chronic Anxiety disorders (20 sources) Mixed anxiety and depressive disorder; Translations: [Anxiety disorder] Onset: 05-17-2024 04-11-2021 Chronic Cancer of ovary (20 sources) Primary low grade serous adenocarcinoma of ovary; Translations: [Malignant tumor of ovary] Onset: 05-11-2024 04-13-2024 Chronic Cardiac dysrhythmias (1 source) Sinus bradycardia; Translations: [Bradycardia, unspecified] Episodic Complications of surgical procedures or medical care (1 source) Postprocedural infection; Translations: [Infection following a procedure, unspecified, initial encounter] Onset: 04-11-2024 Episodic Diabetes mellitus without complication (1 source) Prediabetes; Translations: [Prediabetes] Onset: 06-17-2025 Episodic Diseases of mouth; excluding dental (5 sources) Stomatitis; Translations: [Other forms of stomatitis] Onset: 05-19-2025 05-20-2025 Episodic Genitourinary symptoms and ill-defined conditions (12 sources) Dysuria; Translations: [Dysuria] Onset: 05-17-2024 12-08-2024 Episodic Hemorrhage during ; abruptio placenta; placenta previa (11 sources) Antepartum hemorrhage; Translations: [Antepartum hemorrhage, unspecified, unspecified trimester] 09-17-2013 Episodic Immunizations and screening for infectious disease (2 sources) Encounter for screening for human papillomavirus (HPV); Translations: [Encounter for screening for human papillomavirus (HPV)] Onset: 03-10-2024 Episodic Maintenance chemotherapy; radiotherapy (11 sources) Patient encounter status; Translations: [Encounter for antineoplastic chemotherapy] 12-08-2024 Chronic Menstrual disorders (2 sources) Amenorrhea; Translations: [Amenorrhea, unspecified] Chronic Mood disorders (1 source) Depressive disorder; Translations: [Depression, unspecified] Chronic Mycoses (20 sources) Candidiasis of mouth; Translations: [Candidal stomatitis] Onset: 05-17-2024 Episodic Other connective tissue disease (13 sources) Swelling of bilateral lower limbs; Translations: [Other specified soft tissue disorders] 2024 Episodic Other gastrointestinal disorders (1 source) Mass of abdominal cavity structure; Translations: [Intra-abdominal and pelvic swelling, mass and lump, unspecified site] Episodic Other gastrointestinal disorders (2 sources) Intra-abdominal and pelvic swelling, mass and lump, unspecified site; Translations: [Intra-abdominal and pelvic swelling, mass and lump, unspecified site] Onset: 04-03-2024 Episodic Other gastrointestinal disorders (11 sources) Diarrhea due to drug; Translations: [Toxic gastroenteritis and colitis] 12-08-2024 Episodic Other lower respiratory disease (12 sources) Cough; Translations: [Cough] 12-08-2024 Episodic Other nervous system disorders (1 source) Pain due to neoplastic disease; Translations: [Neoplasm related pain (acute) (chronic)] Onset: 08-05-2024 Chronic Other nervous system disorders (20 sources) Carpal tunnel syndrome; Translations: [Carpal tunnel syndrome, bilateral upper limbs] 10-19-2024 Chronic Other nervous system disorders (2 sources) Carpal tunnel syndrome, bilateral upper limbs; Translations: [Carpal tunnel syndrome, bilateral upper limbs] Onset: 03-25-2025 Chronic Other nervous system disorders (1 source) Postoperative pain ; Translations: [Other acute postprocedural pain] Onset: 04-08-2024 Episodic Other non-traumatic joint disorders (4 sources) Joint pain; Translations: [Pain in unspecified joint] 05-20-2025 Episodic Other nutritional; endocrine; and metabolic disorders (4 sources) Weight increased; Translations: [Abnormal weight gain] 05-20-2025 Episodic Other nutritional; endocrine; and metabolic disorders (1 source) Abnormal weight gain; Translations: [Abnormal weight gain] Onset: 06-17-2025 Episodic Other screening for suspected conditions (not mental disorders or infectious disease) (8 sources) Increased cancer antigen 125; Translations: [Elevated cancer antigen 125 [CA 125]] Onset: 03-10-2024 Episodic Other upper respiratory infections (1 source) Other chronic sinusitis; Translations: [Other chronic sinusitis] Onset: 01-06-2025 Chronic Other upper respiratory infections (1 source) Acute pharyngitis; Translations: [Acute pharyngitis, unspecified] Onset: 01-06-2023 Episodic Pneumonia (except that caused by tuberculosis or sexually transmitted disease) (1 source) Pneumonia; Translations: [Pneumonia, unspecified organism] Onset: 08-04-2024 Episodic Residual codes; unclassified (18 sources) Family history of malignant neoplasm of breast in first degree relative 10-17-2020 Episodic Residual codes; unclassified (1 source) Family history of genetic disorder carrier; Translations: [Family history of carrier of genetic disease] Episodic Residual codes; unclassified (4 sources) Flushing; Translations: [Flushing] 05-20-2025 Episodic Secondary malignancies (12 sources) Secondary malignant neoplasm of omentum; Translations: [Secondary malignant neoplasm of retroperitoneum and peritoneum] 05-26-2024 Chronic Secondary malignancies (20 sources) Carcinomatosis of peritoneal cavity; Translations: [Secondary malignant neoplasm of retroperitoneum and peritoneum] 05-26-2024 Chronic Secondary malignancies (2 sources) Secondary malignant neoplasm of retroperitoneum and peritoneum; Translations: [Secondary malignant neoplasm of retroperitoneum and peritoneum] Onset: 05-25-2025 Chronic Unclassified (1 source) Elevation of levels of liver transaminase levels; Translations: [Elevation of levels of liver transaminase levels] Onset: 05-17-2024 Unclassified (2 sources) Malignant neoplasm of bilateral ovaries; Translations: [Malignant neoplasm of bilateral ovaries] Onset: 05-25-2025 Unclassified (2 sources) Cough, unspecified; Translations: [Cough, unspecified] Onset: 08-25-2024 Urinary tract infections (12 sources) Urinary tract infectious disease; Translations: [Urinary tract infection, site not specified] Onset: 05-17-2024 12-08-2024 Episodic Past or Other Problems Problem Classification Problem Date Documented Da te Episodic/Chronic Bacterial infection; unspecified site (1 source) Streptococcus, group B, as the cause of diseases classified elsewhere; Translations: [Streptococcus, group B, as the cause of diseases classified elsewhere] Onset: 4 Episodic E Codes: Adverse effects of medical drugs (1 source) Adverse effect of antineoplastic and immunosuppressive drugs, initial encounter; Translations: [Adverse effect of antineoplastic and immunosuppressive drugs, initial encounter] Onset: 4 Episodic Fluid and electrolyte disorders (1 source) Dehydration; Translations: [Dehydration] Onset: 4 Episodic Nausea and vomiting (1 source) Nausea with vomiting, unspecified; Translations: [Nausea with vomiting, unspecified] Onset: 4 Episodic Nonspecific chest pain (2 sources) Chest pain; Translations: [Chest pain, unspecified] Onset: 4 Episodic Other aftercare (1 source) halfway (current) use of aspirin; Translations: [long term care social worker (current) use of aspirin] Onset: 4 Episodic Other gastrointestinal disorders (1 source) Diarrhea, unspecified; Translations: [Diarrhea, unspecified] Onset: 4 Episodic Phlebitis; thrombophlebitis and thromboembolism (9 sources) Acute thrombosis of superficial vein of lower limb; Translations: [Personal history of other venous thrombosis and embolism] Onset: 4 03-10-2024 Episodic Pleurisy; pneumothorax; pulmonary collapse (17 sources) Pleural effusion; Translations: [Pleural effusion, not elsewhere classified] Onset: 4 Episodic Comment on above: 06/2024 Residual codes; unclassified (1 source) Asymptomatic menopausal state; Translations: [Asymptomatic menopausal state] Onset: 5 Episodic Spondylosis; intervertebral disc disorders; other back problems (1 source) Dorsalgia, unspecified; Translations: [Dorsalgia, unspecified] Onset: 4 Episodic Results Test Name Value Interpretation Reference Range Facility CBC + DIFFon 06-17-2025 Baso # 0.02 x10EE3/UL Normal 0.00 - 0.10 [facility] Comment on above: Performed By: #### 2 [id number] #### [facility],[address] [place] [address] 95221 Basophils/100 WBC (Bld) 0.3 % Normal 0.0 - 2.0 [facility] Comment on above: Performed By: #### 2 33797 #### [facility],[address] [place] [address] CBC + DIFF Normal [facility] Comment on above: Result Comment: CBC- COMPLETE BLOOD COUNT Performed By: #### 2 [id number] #### [facility],[address] [place] [address] EO # 0.22 x10EE3/UL Normal 0.00 - 0.50 [facility] Comment on above: Performed By: #### 2 63565 #### [facility],[address] [place] [address] Eosinophils/100 WBC (Bld) 3.1 % Normal 0.0 - 7.0 [facility] Comment on above: Performed By: #### 2 82270 #### [facility],[address] [place] [address] Erythrocyte distribution width (RBC) [Ratio] 13.3 % Normal 12.0 - 15.6 [facility] Comment on above: Performed By: #### 2 06121 #### [facility],[address] [place] [address] Hematocrit (Bld) [Volume fraction] 37.3 % Normal 34.0 - 46.0 [facility] Comment on above: Performed By: #### 2 34649 #### [facility],[address] [place] [address] Hemoglobin (Bld) [Mass/Vol] 12.1 g/dL Normal 12.0 - 16.0 [facility] Comment on above: Performed By: #### 2 90948 #### [place] [address] Lymph # 1.30 x10EE3/UL Normal 0.80 - 2.80 [facility] Comment on above: Performed By: #### 2 55969 #### [facility],[address] [place] [address] Lymphocytes/100 WBC (Bld) 18.4 % Low 20.0 - 45.0 [facility] Comment on above: Performed By: #### 2 44124 #### [facility],[address] [place] [address] MANUAL DIFF N/A Normal [facility] Comment on above: Performed By: #### 2 36610 #### [facility],[address] [place] [address] MCH (RBC) [Entitic mass] 27 pg Normal 27 - 33 [facility] Comment on above: Performed By: #### 2 84671 #### [facility],[address] [place] [address] MCHC 33 X10 3 Normal 32 - 36 [facility] Comment on above: Performed By: #### 2 78605 #### [facility],[address] [place] [address] MCV (RBC) [Entitic vol] 84 fL Normal 80 - 99 [facility] Comment on above: Performed By: #### 2 67978 #### [facility],[address] [place] [address] Bryan # 0.56 x10EE3/UL Normal 0.20 - 1.00 [facility] Comment on above: Performed By: #### 2 11606 #### [facility],[address] [place] [address] MONOS % 7.9 % Normal 0.0 - 10.0 [facility] Comment on above: Performed By: #### 2 01717 #### [facility],[address] [place] [address] Morphology Rohan (Bld) [Interp] N/A Normal [facility] Comment on above: Performed By: #### 2 34278 #### [facility],[address] [place] [address] Neut # 4.95 x10EE3/UL Normal 1.50 - 7.10 [facility] Comment on above: Performed By: #### 2 98099 #### [facility],[address] [place] [address] 91765 Neutrophils/100 WBC (Bld) 70.3 % Normal 46.0 - 76.0 [facility] Comment on above: Performed By: #### 2 16332 #### [facility],[address] [place] [address] 02770 PLATELET 238 x10EE3/UL Normal 150 - 450 [facility] Comment on above: Performed By: #### 2 23032 #### [facility],[address] [place] [address] 92876 Platelet mean volume (Bld) [Entitic vol] 9.1 fL Normal 6.6 - 10.5 [facility] Comment on above: Result Comment: AUTO MATED DIFFERENTIAL Performed By: #### 2 37031 #### [facility],[address] [place], [place] [id number] RBC 4.45 x 10EE6/UL Normal 4.10 - 5.30 [facility] Comment on above: Performed By: #### 2 06858 #### [facility],[address] [place] [address] 05125 WBC 7.1 x 10EE3/UL Normal 4.5 - 10.8 [facility] Comment on above: Performed By: #### 2 98150 #### [facility],[address] [place] [address] 96429 CMP with eGFRon 06-17-2025 AGE 44 years Normal [facility] Comment on above: Performed By: #### 2 63559 #### [facility],[address] [place] [address] 44284 Albumin [Mass/Vol] 3.4 g/dL Normal 3.4 - 5.0 [facility] Comment on above: Performed By: #### 2 78207 #### [facility],[address] [place] [address] 52842 Albumin/Globulin [Mass ratio] 1.1 {ratio} Normal 0.9 - 1.6 [facility] Comment on above: Performed By: #### 2 00648 #### [facility],[address] [place] [address] 53577 ALK PHOS 93 U/L Normal 46 - 116 [facility] Comment on above: Performed By: #### 2 57946 #### [facility],[address] [place] [address] 44556 ALT [Catalytic activity/Vol] 42 U/L Normal 16 - 63 [facility] Comment on above: Performed By: #### 2 15610 #### [facility],[address] [place] [address] 59461 Anion gap [Moles/Vol] 9 mmol/L Low 10 - 20 [facility] Comment on above: Performed By: #### 2 17170 #### [facility],[address] [place] [address] 61234 AST [Catalytic activity/Vol] 23 U/L Normal 13 - 39 [facility] Comment on above: Performed By: #### 2 59174 #### [facility],[address] [place] [address] 05815 B/C RATIO 37 ratio High 0 - 30 [facility] Comment on above: Performed By: #### 2 59595 #### [facility],[address] [place] [address] 36709 Bilirubin [Mass/Vol] 0.4 mg/dL Normal 0.2 - 1.0 [facility] Comment on above: Performed By: #### 2 12520 #### [facility],[address] [place] [address] 75388 Calcium [Mass/Vol] 8.7 mg/dL Normal 8.5 - 10.1 [facility] Comment on above: Performed By: #### 2 90561 #### [facility],[address] [place] [address] 87347 Chloride [Moles/Vol] 104 mmol/L Normal 98 - 107 [facility] Comment on above: Performed By: #### 2 62631 #### [facility],[address] [place] [address] 73005 CMP with eGFR Normal [facility] Comment on above: Result Comment: COMP REHENSIVE METABOLIC PANEL Performed By: #### 2 97450 #### [facility],[address] [place] [address] 15344 CO2 [Moles/Vol] 29.1 mmol/L Normal 21.0 - 32.0 [facility] Comment on above: Performed By: #### 2 94571 #### [facility],[address] [place], [place] [address] Creatinine [Mass/Vol] 0.62 mg/dL Normal 0.55 - 1.02 [facility] Comment on above: Performed By: #### 2 15697 #### [facility],[address] [place] [address] 73866 GFR/1.73 sq M.predicted among non-blacks MDRD (S/P/Bld) [Vol rate/Area] mL/min/{1.73_m2} Normal 60 - 999 [facility] Comment on above: Performed By: #### 2 48953 #### [facility],[address] [place] [address] Result Comment: ACCO RDING TO THE NATIONAL KIDNEY DISEASE EDUCATION PROGRAM(NKDE), A NORMAL eGFR IS A VALUE GREATER THAN OR EQUAL TO 60 ML/MIN/1.73 SQ METERS. CHRONIC KIDNEY DISEASE: <60mL/MIN/1.73 SQ METERS KIDNEY FAILURE: <15mL/MIN/1.73 SQ METERS THIS TEST SHOULD ONLY BE USED FOR PATIENTS 18 YEARS OF AGE AND OLDER. Globulin (S) [Mass/Vol] 3.0 g/dL Normal 1.5 - 3.8 [facility] Comment on above: Performed By: #### 2 26644 #### [facility],[address] [place] [address] 00417 Glucose [Mass/Vol] 98 mg/dL Normal 74 - 106 [facility] Comment on above: Performed By: #### 2 87264 #### [facility],[address] [place] [address] 01867 Potassium [Moles/Vol] 3.7 mmol/L Normal 3.5 - 5.1 [facility] Comment on above: Performed By: #### 2 77364 #### [facility],[address] [place] [address] 27844 Protein [Mass/Vol] 6.4 g/dL Normal 6.4 - 8.2 [facility] Comment on above: Performed By: #### 2 51987 #### [facility],[address] [place] [address] 02766 Sodium [Moles/Vol] 138 mmol/L Normal 136 - 145 [facility] Comment on above: Performed By: #### 2 68336 #### [facility],[address] [place] [address] 65129 Urea nitrogen [Mass/Vol] 23 mg/dL High 7 - 18 [facility] Comment on above: Performed By: #### 2 49662 #### [facility],[address] [place] [address] 00614 HEMOGLOBIN A1C (POM)on 06-17 Glucose [Mass/Vol] 108.3 mg/dL High 0.0 - 0.0 [facility] Comment on above: Result Comment: BLDo HEMOGLOBIN A1C REFERENCE RANGESBLDo Suggested Diagnosis HbA1c(%) HbA1C (mmol/mol Diabetic >/=6.5 >/=48 Prediabetes 5.7 - 6.4 39 - 47 Normal <5.7 <39 Performed By: #### 2 86068 #### [facility],[address] [place] [address] 15746 HbA1c (Bld) [Mass fraction] 5.4 % Normal 0.0 - 6.5 [facility] Comment on above: Performed By: #### 2 88592 #### [facility],[address] [place] [address] 79598 LIPID PROFILEon 06-17-2025 Cholesterol [Mass/Vol] 168 mg/dL Normal 0 - 240 [facility] Comment on above: Performed By: #### 2 88201 #### [facility],[address] [place] [address] 61213 Cholesterol in HDL [Mass/Vol] 44 mg/dL Normal 40 - 60 [facility] Comment on above: Performed By: #### 2 85290 #### [facility],[address] [place] [address] 97667 Cholesterol in LDL [Mass/Vol] 88 mg/dL Normal 0 - 129 [facility] Comment on above: Performed By: #### 2 30102 #### [facility],[address] [place] [address] 27160 Cholesterol.total/Chol esterol in HDL [Mass ratio] 3.8 {ratio} Normal 0.0 - 5.0 [facility] Comment on above: Performed By: #### 2 59019 #### [facility],[address] [place] [address] 13030 Lipid 1996 panel Normal [facility] Comment on above: Result Comment: LIPI D PROFILE Performed By: #### 2 51918 #### [facility],[address] [place] [address] 92728 Triglyceride [Mass/Vol] 181 mg/dL High 0 - 150 [facility] Comment on above: Performed By: #### 2 41337 #### [facility],[address] [place] [address] 87512 T4-FREE (FREE THYROXINE)on 1 Free T4 [Mass/Vol] 0.90 ng/dL Normal 0.76 - 1.46 [facility] Comment on above: Result Comment: P otential of falsely elevated results when biotin concentrations are > 10 ng/mL. Performed By: #### 2 44173 #### [facility],[address] [place] [address] 54719 TSHon 06-17-2025 TSH Qn 1.27 m[IU]/L Normal 0.35 - 3.74 [facility] Comment on above: Performed By: #### 2 34613 #### [facility],[address] [place] [address] 71299 Orthopedic Visit Reporton Orthopedic Visit Report [facility] [address] [place] [address] OFFICE VISIT Date of Service: 05/31/25 MR#: [id number] Acct: [id number] Name: JESSICA ALARCON Rep #: [id number] : 1980 Provider: Dr. Pradeep fairchild MD Age/Sex: 44/F Location: [email or web address] Status: Signed Intake Vital Signs 04/26/25 14:08 05/25/25 11:20 Height 5 ft 6 in 5 ft 6 in Weight: 292 lb 6 oz BMI 47.2 BP 118/85 H Blood Pressure Location Lt brachial Position Sitting Respiration 16 Pulse 83 Pulse Source Monitor Temp 98.6 F Pulse Oximetry (%) 96 Oxygen Delivery Method room air Intake Visit Reasons: BILATERAL WRISTS Chief Complaint: Bilateral Wrist Post-Op Accompanied by: Is patient in pain?: Yes Allergies paclitaxel (From Taxol) Allergy (Severe, Verified 05/31/25 08:36) Anaphylaxis Medications ???Medication ???Instructions ???Recorded ???Confirmed ???Type albuterol sulfate 90 mcg/actuation 1 inh inhalation Q4H PRN shortne ss 05/14/24 05/31/25 History aerosol inhaler of breath or wheezing omeprazole 20 mg tablet,delayed 20 mg PO QDAY 06/04/24 05/31/25 Hi story release clonazepam 0.5 mg tablet 0.5 mg PO DAILY PRN anxiety 05/31/25 History fluoxetine 20 mg tablet 40 mg PO DAILY 12/09/24 05/31/25 H istory calcium carbonate 200 mg calcium 2 tab PO QHS 04/06/25 05/31/25 His tory (500 mg)-vitamin D3 400 unit tablet letrozole 2.5 mg tablet (Femara) 2.5 mg PO QHS 04/06/25 05/31/25 Hi story loratadine 10 mg tablet (Claritin) 10 mg PO DAILY 04/06/25 05/31/25 History MAGIC MOUTH WASH (BMX) 180 mL 15 ml PO .Q6HR #180 mL 05/19/25 Rx suspension ondansetron 8 mg disintegrating 8 mg PO Q8H PRN nausea and 5 05/31/25 Rx tablet vomiting #30 tabs lidocaine-prilocaine 2.5 %-2.5 % 1 applic topical ONCE PRN PORT 06/1005/31/25 Rx topical cream ACCESS 30 days #30 grams clindamycin HCl 300 mg capsule 300 mg PO TID 05/31/25 05/31/25 Hi story PFSH Medical History Weight gain Stomatitis Aromatase inhibitor-associated arthralgia Hot flashes Wears glasses Gastric reflux Asthma Non-smoker History of pain when walking History of edema History of echocardiogram Cancer Bilateral carpal tunnel syndrome Cough Pleural effusion Candidiasis of breast Dysuria Oral candidiasis Diarrhea due to drug Encounter for chemotherapy management 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 carcinomatosis Ovarian cancer Acute superficial venous thrombosis of lower extremity Anxiety and depression Carcinoma of ovary, stage 3 Surgical History History of bilateral carpal tunnel release Hx of total hysterectomy History of appendectomy History of colposcopy H/O LEEP Family History Aunt Breast cancer Cancer Father's side Aunt Breast cancer Great aunt Social History Smoking Status: Never smoker alcohol intake: current alcohol intake frequency: holidays/special occasions only substance use type: does not use HPI BILATERAL WRISTS Details: This documentation accurately reflects the service provided and the decisions made by me, Dr. Pradeep Chandler MD 05/31/25 8352. Part of today???s visit was documented by [ ], acting as scribe. JESSICA ALARCON is a 44 year old F here today for 2 month FU bilat ECTRs. Patient believes the right wrist is infected. She went to Urgent Care Saturday and they gave her an antibiotic. She went to [facility]. mendoza has beenss scant drainage - looks like suture abcess. no fevers or chills. on po chemo for ovarian CA. Ortho Exam General General: Yes no acute distress Neurologic: Yes alert and Yes oriented x3 Psychologic: Yes reasonable and appropriate Right Wrist/Hand Skin/Wound: Yes CDI, Yes healed, No Swelling, No Ecchymosis, Yes nail intact and Yes capillary refill normal Motor: EPL: 5, FDP-2: 5, 1st Dorsal Interosseous: 5 and APB: 5 Sensation: Radial: I, Ulnar: I and Median: I WRIST: small suture abscess. no collection, scant drainage. Left Wrist/Hand Skin/Wound: Yes CDI, Yes healing, No Swelling and No Ecchymosis Left Wrist: Yes ROM-Extension 0-60, Yes ROM-Flexion 0-80, Yes ROM-Pronation 0-80 and Yes ROM- Supination 0-90 Motor: EPL: 5, FDP-2: 5, 1st Dorsal Interosseous: 5 and APB: 5 Sensation: Radial: I, Ulnar: I and Median: I Coding Level of Care Code Global Post Op Diagnoses Bilateral carpal tunnel syndrome G56.03 Assessment and Plan Assessment and Plan (1) Bilateral carpal tunnel syndrome: Status: Acute Plan: JESSICA ALARCON is a 44 yea (more content not included)... Normal [facility] Oncology Visit Reporton Oncology Visit Report [facility] [address] [facility] [place] [address] OFFICE VISIT Date of Service: 05/25/25 1115 MR#: [id number] Acct: [id number] Name: JESSICA ALARCON Rep #: [id number] : 1980 From: Coco Lima MD Age/Sex: 44/F Location: [facility] Status: Signed HPI Subjective Date of Service 05/25/25 Chief Complaint Ovarian cancer on treatment History of Present Illness 43-year-old female who was diagnosed with Asherman's syndrome for several years and in 2023 experienced increasing abdominal and pelvic pain and a CT scan of the abdomen and pelvis revealed a pelvic mass and an elevated CA125 of 76. February 2024 she had genetic testing ([employer]) that showed no known pathogenic variants. 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 March 2024 next generation sequence, tissue: No potentially actionable pathogenic variants, tumor mutational burden was low (3.2M/MB) April 22, 2024 received 1 cycle of carboplatin Taxol but developed an anaphylactic reaction to Taxol. May 13, 2024 received the second cycle with carboplatin and Taxotere replace Taxol. This was complicated with excessive GI toxicity requiring hospitalization May 19-2023, she was neutropenic but not febrile. CA-125 05/11/24 446 04/20/24 181 03/25/24 76 June 04, 2024 transferred her care to [facility] and resumed carboplatin and Taxotere with maximum supportive care. August 05, 2024 left pleural thoracocentesis at [facility] 1100 cc negative for malignancy. August 26, 2024 recurrent left pleural effusion thoracocentesis: Negative for malignancy September 01, 2024 CT chest abdomen and pelvis: FINDINGS: CHEST A right-sided shannan catheter seen with the tip in the superior vena cava. Stable moderate-sized left pleural effusion with left basilar compressive atelectasis and/or infiltrate. Small amount of fluid is seen in the left major fissure. The right lung is clear. There is no demonstrated pleural abnormality. Normal heart and pericardium. Normal mediastinum. Normal hilar regions. Normal unenhanced pulmonary arteries. Normal aorta arch and descending thoracic aorta. Normal osseous structures. ABDOMEN There is decreased attenuation of the liver consistent with steatosis. Small amount of perihepatic fluid. Small amount of fluid in the : Gutters bilaterally. Normal gallbladder and extrahepatic biliary system. Normal spleen. Normal pancreas. Normal bilateral adrenal glands. Normal right kidney. Normal left kidney. Normal visualized stomach. Normal small intestine. There are scattered colonic diverticula consistent with diverticulosis. The appendix is visualized and appears normal. Normal abdominal aorta. Normal inferior vena cava. Normal retroperitoneum. Normal abdominal wall. Normal osseous structures. PELVIS Normal urinary bladder. Pelvic ascites. Status post hysterectomy. There is no pelvic lymphadenopathy or mass lesion. Normal visualized pelvic arteries. IMPRESSION: Ascites. Diffuse fatty infiltration of the liver. Moderate size left pleural effusion with left basilar atelectasis. December 02, 2024 CT chest abdomen and pelvis: IMPRESSION: Interval resolution of the left pleural effusion. Fatty infiltration of the liver. No acute abnormality is seen. 05/14/2025 CT chest abdomen and pelvis: IMPRESSION: Stable examination. Treatment summary and response: * March 2024 laparoscopic hysterectomy, BSO, omentectomy and staging. 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 Normal [facility] Cancer Antigen 125on 025 CA 125 16.3 U/mL Normal 0.0-38.1 [facility] Comment on above: Result Comment: [employer] Electrochemiluminescence Immunoassay (ECLIA) Values obtained with different assay methods or kits cannot be used interchangeably. Results cannot be interpreted as absolute evidence of the presence or absence of malignant disease. Performed at: [facility] [employer] [id number] [employer] Boner And Slicer: Boo King PhD, Phone: [phone] Performed By: #### L 072.6898, L100.0100 #### [facility] [place], [address] Oncology Visit Reporton Oncology Visit Report [facility] [address] [place] [address] OFFICE VISIT Date of Service: 05/19/25 1310 MR#: [id number] Acct: [id number] Name: JESSICA ALARCON Rep #: [id number] : 1980 From: Ellen Dowling NP PEN TESTER -C Age/Sex: 44/F Location: [facility] Status: Signed HPI Subjective Date of Service 05/19/25 Chief Complaint acute visit- joint pain, weight gain, hot flashes History of Present Illness 44-year-old female who was diagnosed with Asherman's syndrome for several years and in 2023 experienced increasing abdominal and pelvic pain and a CT scan of the abdomen and pelvis revealed a pelvic mass and an elevated CA125 of 76. February 2024 she had genetic testing ([employer]) that showed no known pathogenic variants. 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 March 2024 next generation sequence, tissue: No potentially actionable pathogenic variants, tumor mutational burden was low (3.2M/MB) April 22, 2024 received 1 cycle of carboplatin Taxol but developed an anaphylactic reaction to Taxol. May 13, 2024 received the second cycle with carboplatin and Taxotere replace Taxol. This was complicated with excessive GI toxicity requiring hospitalization May 19-2023, she was neutropenic but not febrile. CA-125 05/11/24 446 04/20/24 181 03/25/24 76 June 04, 2024 transferred her care to [facility] and resumed carboplatin and Taxotere with maximum supportive care. August 05, 2024 left pleural thoracocentesis at [facility] 1100 cc negative for malignancy. August 26, 2024 recurrent left pleural effusion thoracocentesis: Negative for malignancy September 01, 2024 CT chest abdomen and pelvis: FINDINGS: CHEST A right-sided shannan catheter seen with the tip in the superior vena cava. Stable moderate-sized left pleural effusion with left basilar compressive atelectasis and/or infiltrate. Small amount of fluid is seen in the left major fissure. The right lung is clear. There is no demonstrated pleural abnormality. Normal heart and pericardium. Normal mediastinum. Normal hilar regions. Normal unenhanced pulmonary arteries. Normal aorta arch and descending thoracic aorta. Normal osseous structures. ABDOMEN There is decreased attenuation of the liver consistent with steatosis. Small amount of perihepatic fluid. Small amount of fluid in the : Gutters bilaterally. Normal gallbladder and extrahepatic biliary system. Normal spleen. Normal pancreas. Normal bilateral adrenal glands. Normal right kidney. Normal left kidney. Normal visualized stomach. Normal small intestine. There are scattered colonic diverticula consistent with diverticulosis. The appendix is visualized and appears normal. Normal abdominal aorta. Normal inferior vena cava. Normal retroperitoneum. Normal abdominal wall. Normal osseous structures. PELVIS Normal urinary bladder. Pelvic ascites. Status post hysterectomy. There is no pelvic lymphadenopathy or mass lesion. Normal visualized pelvic arteries. IMPRESSION: Ascites. Diffuse fatty infiltration of the liver. Moderate size left pleural effusion with left basilar atelectasis. December 02, 2024 CT chest abdomen and pelvis: IMPRESSION: Interval resolution of the left pleural effusion. Fatty infiltration of the liver. No acute abnormality is seen. 05/14/2025 CT chest abdomen and pelvis: IMPRESSION: Stable examination. Treatment summary and response: * March 2024 laparoscopic hysterectomy, BSO, omentectomy and staging. * April - July 2024???[place] taxane systemic chemotherapy (initially Taxol then Taxotere; total 6 cycles) * August 2024: Femara maintenance Interval History The patient is presenting to clinic for an acute visit at her request with c/o joint pain, hot flashes, weight gain and mouth sores. States all of these things will bother me and then go away for a while, then come back Motions to finger joints, bilat hips, and knees. Describes pain as dull ache, rates pain 8/10 occurs intermittently. Stretching in the early am hours is helpful, IBU is effective. Diet has not changed much, cannot estimate caloric intake. Walks 1/4-1/2 mi/day with children. Otherwise sedentary citing joint pain as limiting her activity. Hot flashes are not interfering with sleep or causing daytime somnolence/fatigue. Despite side effects, she confirms good adherence to letrozole daily. [facility] Medical History (Updated 05/20/25 @ 08:49 by Ellen Dowling PEN TESTER, PEN TESTER-C) Weight gain Stomatitis Aromatase inhibitor-associated arthralgia Hot flashes Wears glasses Gastric reflux (more content not included)... Normal [facility] Cancer antigen 125 (CA-125) measurementOrdered By: Coco Lima on 05-18-2025 Cancer antigen 125 (CA-125) measurement 16.3 U/mL 0.0-38.1 [facility] Comment on above: [employer] El ectrochemiluminescence Immunoassay(ECLIA)Values obtained with different assay methods or kits cannotbe used interchangeably. Results cannot be interpreted asabsolute evidence of the presence or absence of malignantdisease.Performed at: [facility] [id number] Director: Boo King PhD, Phone: [phone] Orthopedic Visit Reporton Orthopedic Visit Report [facility] [address] [place] [address] [address] [place] [address] OFFICE VISIT Date of Service: 04/26/25 MR#: [id number] Acct: [id number] Name: JESSICA ALARCON Rep #: [id number] : 1980 Provider: Dr. Pradeep fairchild MD Age/Sex: 44/F Location: [facility] Status: Signed Intake Vital Signs 04/14/25 09:38 04/26/25 14:08 Height 5 ft 6 in 5 ft 6 in Weight: 268 lb BMI 43.2 Intake Visit Reasons: BILATERAL WRISTS Chief Complaint: Bilateral wrsit post op Accompanied by: Son Is patient in pain?: Yes Pain scale (1-10): 1 Allergies paclitaxel (From Taxol) Allergy (Severe, Verified 04/26/25 14:11) Anaphylaxis Medications ???Medication ???Instructions ???Recorded ???Confirmed ???Type albuterol sulfate 90 mcg/actuation 1 inh inhalation Q4H PRN shortne ss 05/14/24 04/26/25 History aerosol inhaler of breath or wheezing loperamide 2 mg capsule 2 mg PO Q6H PRN diarrhea 06/04/24 04/26/25 History omeprazole 20 mg tablet,delayed 20 mg PO QDAY 06/04/24 04/26/25 Hi story release lidocaine-prilocaine 2.5 %-2.5 % 1 applic topical ONCE PRN PORT 11/0904/26/25 Rx topical cream ACCESS 30 days #30 grams ondansetron 8 mg disintegrating 8 mg PO Q8H PRN nausea and 4 04/26/25 Rx tablet vomiting #30 tabs clonazepam 0.5 mg tablet 0.5 mg PO DAILY PRN anxiety 04/26/25 History fluoxetine 20 mg tablet 40 mg PO DAILY 12/09/24 04/26/25 H istory calcium carbonate 200 mg calcium 2 tab PO QHS 04/06/25 04/26/25 His tory (500 mg)-vitamin D3 400 unit tablet letrozole 2.5 mg tablet (Femara) 2.5 mg PO QHS 04/06/25 04/26/25 Hi story loratadine 10 mg tablet (Claritin) 10 mg PO DAILY 04/06/25 04/26/25 History Have you fallen in the past year?: Yes [facility] Medical History Wears glasses Gastric reflux Asthma Non-smoker History of pain when walking History of edema History of echocardiogram Cancer Bilateral carpal tunnel syndrome Cough Pleural effusion Candidiasis of breast Dysuria Oral candidiasis Diarrhea due to drug Encounter for chemotherapy management 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 carcinomatosis Ovarian cancer Acute superficial venous thrombosis of lower extremity Anxiety and depression Carcinoma of ovary, stage 3 Surgical History Hx of total hysterectomy History of appendectomy History of colposcopy H/O LEEP Family History Aunt Breast cancer Cancer Father's side Aunt Breast cancer Great aunt Social History Smoking Status: Never smoker alcohol intake: current alcohol intake frequency: holidays/special occasions only substance use type: does not use HPI BILATERAL WRISTS Details: This documentation accurately reflects the service provided and the decisions made by me, Dr. Pradeep Chandler MD 04/26/25 1258. Part of today???s visit was documented by [ ], acting as scribe. JESSICA ALARCON is a 44 year old F here today for 11 day FU bilat ECTRs. Doing well overall Symptoms are improving still some mildl diminished sensation to the 3rd and 4th digit right side primarily, but feeling better since the surgery. Coding Level of Care Code Global Post Op Diagnoses Bilateral carpal tunnel syndrome G56.03 Assessment and Plan Assessment and Plan (1) Bilateral carpal tunnel syndrome: Status: Acute Plan: JESSICA ALARCON is a 44 year old F here today for 11 day FU bilat ECTRs. FU 4 weeks. OK to shower gently. Keep covered 1 more week. night time brace 2-3 more weeks. After endoscopic carpal tunnel release surgery, it's crucial to elevate your hand, keep the incision clean and dry, and avoid heavy lifting or repetitive movements for the first few weeks. Gentle finger exercises should be started as soon as possible to promote movement and prevent stiffness. Pain medication and a healthy diet are also important for recovery. Week 0-2: Elevation: Keep your hand elevated above your heart level as much as possible to minimize swelling. Wound Care: Keep the incision clean and dry. Keep the wound covered and change the dressing daily or every 2 days for the first 2 weeks. Pain Management: Tylenol or Advil may be helpful. Activity: You can start using your hand for light activities, but avoid heavy lifting or grasping for at least 6 weeks. Splint: Wear a wrist splint, especially at night, to support the wrist for 2 weeks. Week 3-6: Gradually Increase Activity: You can gradually increase your activity level as tolerated, but continue to avoid heavy lifting and repetitive mov (more content not included)... Normal [facility] Discharge Instructionon 07- Discharge Instruction [facility] Medical Records Department [address] [place] [address] Instructions for Home/Discharge Instructions 04/14/25 1134 MR#: [id number] Acct: [id number] Name: JESSICA ALARCON Rep #: [id number] : 1980 44 From: Pradeep Chandler MD PCP: DIANNE Daniel Status:[facility] Discharge Instructions Diet Discharge Diet: No restrictions Activity Discharge Activity: Return to Normal Activity Ice area for (Minutes): 10 Lifting Restrictions: no pushing pulling or lifting Keep extremity elevated above heart level: Operative Extremity Additional Activity Instructions:: wear wrist braces for 2 weeks post op Dressing / Incision Call your doctor if your incision/area has: Continuous Slow Oozing, Sudden Increased Bleeding, Increased Pain/ Swelling, Increased Redness, Foul Smelling Discharge and Swelling at the incision site Call your doctor if you observe: Fever of 101 or Higher, Coldness, Increased Pain and Numbness or Tingling Change Dressing in: leave in place till F/U Cleanse incision/area with: Do not get Incision Wet Follow Up Care Please Follow Up With: Pradeep Chandler MD When: 2 days or within 2 weeks Test Results: Test results from this visit will be discussed in further detail at your follow-up appointment, if applicable. Discharge Plan Admission Attending Provider: Pradeep Chandler Primary Care Provider: Adan Garcia NP Instructions Patient Instructions: Carpal Tunnel Release Surgery Print Language: Ukrainian Discharge Orders/Prescriptions Prescriptions: No Action albuterol sulfate 90 mcg/actuation HFA aerosol inhaler 1 inh inhalation Q4H PRN (Reason: shortness of breath or wheezing) fluoxetine 20 mg tablet 40 mg PO DAILY clonazepam 0.5 mg tablet 0.5 mg PO DAILY PRN (Reason: anxiety) loperamide 2 mg capsule 2 mg PO Q6H PRN (Reason: diarrhea) omeprazole 20 mg tablet,delayed release (DR/EC) 20 mg PO QDAY lidocaine-prilocaine 2.5-2.5 % cream 1 applic topical ONCE PRN (Reason: PORT ACCESS) 30 Days Qty: 30 2RF loratadine [Claritin] 10 mg tablet 10 mg PO DAILY calcium carbonate-vitamin D3 200 mg (500 mg) -400 unit tablet 2 tab PO QHS letrozole [Femara] 2.5 mg tablet 2.5 mg PO QHS ondansetron 8 mg tablet,disintegrating 8 mg PO Q8H PRN (Reason: nausea and vomiting) Qty: 30 2RF Referrals / Follow Up: Pradeep Chandler MD [Med Staff - Active Staff] - Adan Garcia NP, PEN TESTER-C [Primary Care Provider] - Disposition Disposition (needs filled in before D/C Order can be placed): Home, Self Care 04/14/25 1135 Pradeep Chandler MD CC: PEN TESTER-C Adan Garcia Signed Normal [facility] MR/POSTOP.ANEon 04-14-2025 MR/POSTOP.[facility] Medical Records Department [address] [place] [address] Anesthesia Postop Eval I 04/14/25 1159 MR#: [id number] Acct: [id number] Name: JESSICA ALARCON Rep #: [id number] : 1980 44 From: Gideon Marcano CRNA PCP: DIANNE Daniel Status:[facility] Y Race: C Location: [place] [address] Anesthesia: Postop Eval I Current Vital Signs Temperature: 97.9 F Pulse Rate: 107 Blood Pressure: 152/75 Respiratory Rate: 16 Pulse Ox: 98 Assessment Airway patent: Yes Spontaneous unlabored respirations: Yes nausea: No Vomiting: No Anesthesia Complication: No Fluid Hydration Crystalloid volume administer (ml): 600 Total IV fluid infused: 600 Progress Note Anesthesia document: Postop Eval 1 completed: Yes 04/14/25 1200 Date Gideon Swanbitt CHEMICAL ENGINEERING TEACHER Cosigner Signature: Date CC: Signed [facility] Operative Reporton Operative Report [facility] Medical Records Department [address] [facility] [place] [address] Operative Report 04/14/25 1131 MR#: [id number] Acct: [id number] Name: JESSICA ALARCON Rep #: [id number] : 1980 44 From: Pradeep Chandler MD PCP: DIANNE Daniel Status:[facility] Location: [place] [address] Problems Associated Problem List Diagnoses (1) Bilateral carpal tunnel syndrome: Procedures Musculoskeletal 20xxx-29xxx: Other Procedure See Report Operative Report (Standard) Operative Information Date of Procedure: 04/14/25 Pre-Operative Diagnosis: bilateral CTS Post-Operative Diagnosis: same Surgery/Procedure Performed: bilateral ECTRs front office manager: Yes Radon Inspector: angelic Tasks completed by assistant site manager: Retracting Additional assistant banquet manager?: No Type of Anesthesia: General and Local RN Documented Start/Stop Times: Operation Date: 04/14/25 10:45 Case Time Into Pre-Op 04/14/25 09:24 Out of Pre-Op 04/14/25 10:41 Anesthesia Start 04/14/25 10:46 Into Room 04/14/25 10:46 Procedure Start 04/14/25 11:03 Procedure Start Time: 11:03 Procedure Stop Time: 11:32 Select all DRAINS/GRAFTS/IMPLANTS that apply: None Estimated Blood Loss: 10 Specimen collected: No Description of surgery: Patient brought to the operating room theater. Placed upon on the table. 3g iv ancef before the start of the case. GA induced by the anesthetic team. Patient placed supine on the table all bony prominences padded. SCDs on the legs. Hand table used bilateral. Tourniquet applied properly padded to the upper extremites. Upper extremity prepped and draped in the usual sterile fashion with chlorhexidine-based prep solution allowing over 3 minutes drying time prior to draping. Preoperative timeout performed to confirm the site patient and the surgery. Did the same procedure both sides. Began by elevating the limb and inflated the tourniquet to 250 mmHg. I used the [employer] center line endoscopic carpal tunnel kit technique. 2cc 0.25% bupivicaine for local anesthesia. I made a transverse 2 cm incision in line with the??? transverse wrist crease.??? This was in line with the fourth digit.??? I carried the dissection down through skin and subcutaneous tissue achieved meticulous hemostasis. Just ulnar to palmaris tendon.??? I incised the antebrachial fascia.??? I passed sequential dilators into the carpal tunnel along the radial border of the Guyon's canal aiming for the fourth digit with the hand in extension.??? I used a synovial elevator to identify the transverse fibers of the transverse carpal tunnel ligament.??? Passed the scope into the carpal tunnel. Once I had identified the full proximal and distal extent of the ligament I fully released the ligament under direct visualization by deploying the blade and slowly withdrawing the scope made sequential passes until I no longer felt tension as well as the entire extent of the ligament was released under direct visualization.??? Sounded the tunnel with thakkar tenotomy scissors, complete release, no bands. Arthroscope light was more visible through the skin. More room for the large dilator. Release the forearm fascia also. Pictures taken and saved. Wounds thoroughly irrigated.??? Tourniquet let down prior to end of the case and meticulous hemostasis achieved.??? Thorough irrigation.? Incisions closed with dermabond and 3-0 monocryl. ???Then adaptic 4x4 gauze and cloth tape. Patient woken up,??? transferred off the operating room table and taken to postanesthetic care unit in stable condition. All sponge needle instrument counts were correct no complications.???Plan for the patient to be discharged home according to day surgery criteria when they are comfortable. Follow-up in the office in 2 days time. Gentle ROM hand and elbow no heavy lifting. Recommend wrist brace 2 weeks. cpt 27567 x 2 Surgical Findings: as above Complications Complications: No Admit VTE Documentation VTE Present on Admission: No VTE Mechan Device Prophylaxis: SCD's VTE Pharm Prophylaxis ordered?: No Reason prophylaxis not ordered: Treatment Not Indicated 04/14/25 1133 Cosigner Signature (if applicable): CC: PEN TESTER-C Adan Garcia; Dr. Pradeep Chandler MD Signed [facility] MR/PAT.ANEon 04-07-2025 MR/PAT.[facility] Medical Records Department [address] [place] [id number] PAT - Anesthesia 04/07/25 1645 MR#: [id number] Acct: [id number] Name: JESSICA ALARCON Rep #: [id number] : 1980 44 From: Jesus Gates MD PCP: DIANNE Daniel Status:PRE [facility] Y Race: C Location: [facility] Pre-Assessment Diagnosis/Proposed Procedure Planned Operative Procedure(s): BILAT ENDOSCOPIC CARPAL TUNNEL RELEASE Anesthesia History Anesthesia History - ppap coordinator: Anesthesia History - ppap coordinator Hx Hospitalization Yes: 06/2024 PNEUMONIA 04/06/25 11:28 2023 POST CHEMO Any Problems With Anesthesia No 04/06/25 11:28 Cholinesterase deficiency No 04/06/25 11:28 You/Your Family Experience No 04/06/25 11:28 fever (hyperthermia) with Relationship Recent Exposure to Contagious Disease Does patient have nerve No 04/06/25 11:28 stimulator Patient instructed to have device shut off --Does patient have Pacemaker or ICD? When Was Last Pacemaker Check QUESTION #4 FULL TEXT: You/Your Family Experience fever (hyperthermia) with Anesthesia Last Oral Intake Last Oral intake: Last Oral Intake NPO since Meds taken in AM with sips of water? Meds patient instructed to take am of surgery PONV PONV - ppap coordinator: PONV - ppap coordinator Female Yes 04/06/25 11:28 HX of Motion Sickness Yes 04/06/25 11:28 HX of N/V After Surgery No 04/06/25 11:28 Non-Smoker Yes 04/06/25 11:28 Duration of Surgery greater Yes 04/06/25 11:28 than 60 minutes Number of Risk Factors 4 04/06/25 11:28 PONV Score Severe Risk 04/06/25 11:28 Height Weight Height Weight: Anesthesia: Height Weight Height 5 ft 6 in 02/16/25 16:05 Respiratory Assessment Respiratory Assessment - ppap coordinator: Respiratory Tract Infection Hx - ppap coordinator Hx Respiratory Tract Infection No 04/06/25 11:28 STOP Sleep Apnea STOP Sleep Apnea - ppap coordinator: STOP Sleep Apnea - ppap coordinator Hx Hypertension No 04/06/25 11:28 Hx Sleep Apnea No 04/06/25 11:28 CPAP BIPAP Do you snore loudly (louder No 04/06/25 11:28 than talking or can be heard Do you often feel tired/ Yes 04/06/25 11:28 fatigued/ sleepy during daytime? Has anyone observed you stop No 04/06/25 11:28 breathing during sleep? STOP Results Negative 04/06/25 11:28 QUESTION #5 FULL TEXT : Do you snore loudly (louder than talking or can be heard through closed doors)? 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 Specify any problems Hx of Preganancy in last 3 No 04/06/25 11:28 Months Nurse Filling Out Transfusion DSCHRIBER 04/06/25 11:28 Questions: Date: 04/06/25 04/06/25 11:28 Time: 11:30 04/06/25 11:28 Patient unable to answer at this time (ie. 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 Normal [facility] Orthopedic Visit Reporton Orthopedic Visit Report [facility] [address] [place] [address] OFFICE VISIT Date of Service: 03/29/25 MR#: [id number] Acct: [id number] Name: JESSICA ALARCON Rep #: [id number] : 1980 Provider: Dr. Pradeep fairchild MD Age/Sex: 44/F Location[facility] Status: Signed Intake Vital Signs 02/16/25 16:05 Height 5 ft 6 in Intake Visit Reasons: bilateral wrist Allergies paclitaxel (From Taxol) Allergy (Severe, Verified 03/29/25 10:59) Anaphylaxis Medications ???Medication ???Instructions ???Recorded ???Confirmed ???Type MAGIC MOUTH WASH (BMX) 180 mL ml PO #180 mL 05/14/24 03/29/25 Hi story suspension albuterol sulfate 90 mcg/actuation 1 inh inhalation ONCE 05/14/24 0 03/29/25 History aerosol inhaler loratadine 10 mg tablet (Claritin) 10 mg PO DAILY 05/14/24 03/29/25 History dicyclomine 20 mg tablet 20 mg PO .QID PRN 06/04/24 5 History loperamide 2 mg capsule 2 mg PO Q6H PRN 06/04/24 03/29/25 History omeprazole 20 mg tablet,delayed 20 mg PO QDAY 06/04/24 03/29/25 Hi story release prochlorperazine maleate 10 mg 10 mg PO Q6H PRN nausea and 03/29/25 Rx tablet vomiting #30 tabs dexamethasone 4 mg tablet 8 mg (2 x 4 mg) PO .COMPLEX #12 03/29/25 Rx tabs lidocaine-prilocaine 2.5 %-2.5 % 1 applic topical ONCE PRN PORT 11/0903/29/25 Rx topical cream ACCESS 30 days #30 grams nystatin 100,000 unit/mL oral 5 ml PO Q6H PRN #473 mL 07/15/24 0 03/29/25 Rx suspension nystatin 100,000 unit/gram topical 1 applic topical BID #30 grams 1 09/20/23 03/29/25 Rx cream ondansetron 8 mg disintegrating 8 mg PO Q8H PRN nausea and 4 03/29/25 Rx tablet vomiting #30 tabs letrozole 2.5 mg tablet (Femara) 2.5 mg PO QDAY 30 days #30 tabs 03/29/25 Rx clonazepam 0.5 mg tablet 0.5 mg PO DAILY PRN 12/09/2403/29 History fluoxetine 20 mg tablet 40 mg PO DAILY 12/09/24 03/29/25 H istory [facility] Medical History Bilateral carpal tunnel syndrome Swelling of both lower extremities Cough Pleural effusion Candidiasis of breast UTI (urinary tract infection) Dysuria Oral candidiasis Diarrhea due to drug Encounter for chemotherapy management 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 carcinomatosis Ovarian cancer Acute superficial venous thrombosis of lower extremity Anxiety and depression Carcinoma of ovary, stage 3 Surgical History History of appendectomy History of colposcopy H/O LEEP History of hysterectomy Family History Aunt Breast cancer Cancer Father's side Aunt Breast cancer Great aunt Social History Smoking Status: Never smoker alcohol intake: current alcohol intake frequency: holidays/special occasions only substance use type: does not use HPI bilateral wrist Details: This documentation accurately reflects the service provided and the decisions made by me, Dr. Pradeep Chandler MD 03/29/25 1054. Part of today???s visit was documented by [ ], acting as scribe. JESSICA ALARCON is a 44 year old F here today for FU bilat NCS for CTS.. Had a cortisone injection for her right carpal tunnel syndrome that was about 6 weeks ago it did help but unfortunately now it has worn off and the patient is desiring to go ahead with a more definitive surgical solution. Supplemental Info [facility] Pulmonary Services/Neurology [address] [place] [address] MR#: [id number] Acct: [id number] Name: JESSICA ALARCON Rep #: [id number] : 1980 44 From: Te Zeng MD Referring Dr: Pradeep Chandler MD Status: REG CLI Location: PSN Date: 02/17/25 Sex: F C NCS and/or EMG Patient Report Ordering Doctor: Pradeep Chandler DATE OF SERVICE: 02/17/25 Jessica presents with complaints of numbness and tingling in the first 4 digits of each hand. Symptoms been present for several years. Electrodiagnostic Findings: Median motor nerve demonstrates normal distal latency, amplitude and conduction velocity bilaterally. Normal ulnar motor response bilaterally. Normal median and ulnar F???waves. Prolonged median sensory latency at the wrist and palm bilaterally. Normal ulnar and radial sensory responses. Needle EMG testing was performed in the upper limbs. All muscles tested showed no evidence of denervation with normal motor unit action potentials. Electrodiagnostic impression: This is an abnormal study in the upper limbs (more content not included)... Normal [facility] Bone density reportOrdered B y: Jeromy Handy on 03-02-2025 Study report Skeletal system DXA [facility] Imaging Services [address] [place] [address] Dexa Bone Density Study MR#: [id number] Acct: [id number] Name: JESSICA ALARCON Rep #: [id number] : 1980 F 44 From: Pet er Peer DO PCP: DIANNE Daniel Status: REG C MICHELLE Study:Dexa Bone Density Study Date of Exam: 03/02/25 Exam# [id number] Ordering Dr: Coco Lima MD PROCEDURE: DEXA BONE DENSITY STUDY 03/02/2025 REASON FOR EXAM: POST MENOPAUSE ON ANTI ESTROGEN RX F, age 44 y/o . TECHNIQUE: DEXA BONE DENSITY STUDY COMPARISON: None FINDINGS: BMD and T-SCORES Lumbar spine: 0.971 g/cm2, T-score -0.7 Levels: L1 through L4 At the low end of the low range of normal 0.7. Left femoral neck: 0.756 g/cm2, T-score -0.5 Femoral neck comparison data not recommended for monitoring change. Left total hip: 1.001 g/cm2, T-score 0.5 Normal bone mineral density at the low end of the normal range. Right femoral neck: 0.759 g/cm2, T-score -0.8 Femoral neck comparison data not recommended for monitoring change. Right total hip: 1.000 g/cm2, T-score 0.5 The World Health Organization has defined the following categories based on bonedensity: Normal bone density: T-score equal to or greater than -1.0 Osteopenia: T-score between -1.0 and -2.5 Osteoporosis: T-score equal to or less than -2.5 FRAX (or Comparable) Fracture Risk Assessment: 10 Year Probability of Fracture: Major Osteoporotic Fracture: 3.3% Hip Fracture: 0.1% (Note: FRAX is not to be reported in setting of normal range bone density, osteoporosis on DEXA, known history of osteoporosis, prior osteoporotic hip or vertebral fracture, or for any patient undergoing pharmacological treatment for bone loss.) The National Osteoporosis Foundation (NOF) recommends pharmacological treatment for patients with a FRAX 10-year risk of 3% or higher for a hip fracture, or 20% or higher for a major osteoporotic fracture, to prevent osteoporosis and reduce fracture risk. The patient does meet the pharmacological treatment recommendations for prevention of osteoporosis. BD/Dexa Bone Density Study IMPRESSION: NORMAL T-SCORES. Bone mineral density in the lumbar spine, right and left hip is at the lower end of the normal range. Recommend follow-up as clinically warranted. Reading Location[facility] CC: DIANNE Garcia; Dr. Coco Lima MD ~ Interior Block Wirer: Signed [facility] Dexa Bone Density Studyon Dexa Bone Density Study [facility] Imaging Services [address] [place] [address] Dexa Bone Density Study MR#: [id number] Acct: [id number] Name: JESSICA ALARCON Rep #: [id number] : 1980 F 44 From: Jeromy Handy DO PCP: DIANNE Daniel Status: REG CLI Study: Dexa Bone Density Study Date of Exam: 03/02/25 Exam# [id number] Ordering Dr: Coco Lima MD PROCEDURE: DEXA BONE DENSITY STUDY 03/02/2025 REASON FOR EXAM: POST MENOPAUSE ON ANTI ESTROGEN RX F, age 44 y/o . TECHNIQUE: DEXA BONE DENSITY STUDY COMPARISON: None FINDINGS: BMD and T-SCORES Lumbar spine: 0.971 g/cm2, T-score -0.7 Levels: L1 through L4 At the low end of the low range of normal 0.7. Left femoral neck: 0.756 g/cm2, T-score -0.5 Femoral neck comparison data not recommended for monitoring change. Left total hip: 1.001 g/cm2, T-score 0.5 Normal bone mineral density at the low end of the normal range. Right femoral neck: 0.759 g/cm2, T-score -0.8 Femoral neck comparison data not recommended for monitoring change. Right total hip: 1.000 g/cm2, T-score 0.5 The World Health Organization has defined the following categories based on bone density: Normal bone density: T-score equal to or greater than -1.0 Osteopenia: T-score between -1.0 and -2.5 Osteoporosis: T-score equal to or less than -2.5 FRAX (or Comparable) Fracture Risk Assessment: 10 Year Probability of Fracture: Major Osteoporotic Fracture: 3.3% Hip Fracture: 0.1% (Note: FRAX is not to be reported in setting of normal range bone density, osteoporosis on DEXA, known history of osteoporosis, prior osteoporotic hip or vertebral fracture, or for any patient undergoing pharmacological treatment for bone loss.) The National Osteoporosis Foundation (NOF) recommends pharmacological treatment for patients with a FRAX 10-year risk of 3% or higher for a hip fracture, or 20% or higher for a major osteoporotic fracture, to prevent osteoporosis and reduce fracture risk. The patient does meet the pharmacological treatment recommendations for prevention of osteoporosis. BD/Dexa Bone Density Study IMPRESSION: NORMAL T-SCORES. Bone mineral density in the lumbar spine, right and left hip is at the lower end of the normal range. Recommend follow-up as clinically warranted. Reading Location: [facility] CC: DIANNE Garcia; Dr. Coco Lima MD Interior Block Wirer: Signed Normal [facility] NCS and/or EMG Patienton NCS and/or EMG Patient [facility] Pulmonary Services/Neurology [address] [place] [address] MR#: [id number] Acct: [id number] Name: JESSICA ALARCON Rep #: [id number] : 1980 44 From: Te Zeng MD Referring Dr: Pradeep Chandler MD Status: REG CLI Location: [facility] Date: 02/17/25 Sex: F C NCS and/or EMG Patient Report Ordering Doctor: Pradeep Chandler DATE OF SERVICE: 02/17/25 Jessica presents with complaints of numbness and tingling in the first 4 digits of each hand. Symptoms been present for several years. Electrodiagnostic Findings: Median motor nerve demonstrates normal distal latency, amplitude and conduction velocity bilaterally. Normal ulnar motor response bilaterally. Normal median and ulnar F???waves. Prolonged median sensory latency at the wrist and palm bilaterally. Normal ulnar and radial sensory responses. Needle EMG testing was performed in the upper limbs. All muscles tested showed no evidence of denervation with normal motor unit action potentials. Electrodiagnostic impression: This is an abnormal study in the upper limbs 1. Electrodiagnostic findings suggestive of bilateral median mononeuropathy. This consistent with a mild bilateral carpal tunnel syndrome. [facility] Neurology Neurology Interp Codes: 72326-36 Musc test done w/n test comp (interp) (2) and 26964-92 Nrv cndj test 13/> studies (interp) 02/17/25 1234 Date Te Zeng MD CC: PEN TESTER-C Adan Garcia; Dr. Te Zeng MD; Dr. Pradeep Chandler MD Date Dictated: 02/17/25 1230 Date Transcribed: 02/17/25 1230 Interior Block Wirer: AA Signed Normal [facility] Oncology Visit Reporton Oncology Visit Report [facility] [address] [place] [address] OFFICE VISIT Date of Service: 02/16/25 1604 MR#: [id number] Acct: [id number] Name: JESSICA ALARCON Rep #: [id number] : 1980 From: Coco Lima MD Age/Sex: 44/F Location[place] [facility] Status: Signed HPI Subjective Date of Service 02/16/25 Chief Complaint Ovarian cancer on treatment History of Present Illness 43-year-old female who was diagnosed with Asherman's syndrome for several years and in 2023 experienced increasing abdominal and pelvic pain and a CT scan of the abdomen and pelvis revealed a pelvic mass and an elevated CA125 of 76. February 2024 she had genetic testing ([employer]) that showed no known pathogenic variants. 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 March 2024 next generation sequence, tissue: No potentially actionable pathogenic variants, tumor mutational burden was low (3.2M/MB) April 22, 2024 received 1 cycle of carboplatin Taxol but developed an anaphylactic reaction to Taxol. May 13, 2024 received the second cycle with carboplatin and Taxotere replace Taxol. This was complicated with excessive GI toxicity requiring hospitalization May 19-2023, she was neutropenic but not febrile. CA-125 05/11/24 446 04/20/24 181 03/25/24 76 June 04, 2024 transferred her care to [facility] and resumed carboplatin and Taxotere with maximum supportive care. August 05, 2024 left pleural thoracocentesis at [facility] 1100 cc negative for malignancy. August 26, 2024 recurrent left pleural effusion thoracocentesis: Negative for malignancy September 01, 2024 CT chest abdomen and pelvis: FINDINGS: CHEST A right-sided shannan catheter seen with the tip in the superior vena cava. Stable moderate-sized left pleural effusion with left basilar compressive atelectasis and/or infiltrate. Small amount of fluid is seen in the left major fissure. The right lung is clear. There is no demonstrated pleural abnormality. Normal heart and pericardium. Normal mediastinum. Normal hilar regions. Normal unenhanced pulmonary arteries. Normal aorta arch and descending thoracic aorta. Normal osseous structures. ABDOMEN There is decreased attenuation of the liver consistent with steatosis. Small amount of perihepatic fluid. Small amount of fluid in the : Gutters bilaterally. Normal gallbladder and extrahepatic biliary system. Normal spleen. Normal pancreas. Normal bilateral adrenal glands. Normal right kidney. Normal left kidney. Normal visualized stomach. Normal small intestine. There are scattered colonic diverticula consistent with diverticulosis. The appendix is visualized and appears normal. Normal abdominal aorta. Normal inferior vena cava. Normal retroperitoneum. Normal abdominal wall. Normal osseous structures. PELVIS Normal urinary bladder. Pelvic ascites. Status post hysterectomy. There is no pelvic lymphadenopathy or mass lesion. Normal visualized pelvic arteries. IMPRESSION: Ascites. Diffuse fatty infiltration of the liver. Moderate size left pleural effusion with left basilar atelectasis. December 02, 2024 CT chest abdomen and pelvis: IMPRESSION: Interval resolution of the left pleural effusion. Fatty infiltration of the liver. No acute abnormality is seen. 05/14/2025 CT chest abdomen and pelvis: IMPRESSION: Stable examination. Treatment summary and response: * March 2024 laparoscopic hysterectomy, BSO, omentectomy and staging. 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 Normal [facility] Cancer Antigen 125on 025 CA 125 15.4 U/mL Normal 0.0-38.1 [facility] Comment on above: Result Comment: Tiger[employer]ily Electrochemiluminescence Immunoassay (ECLIA) Values obtained with different assay methods or kits cannot be used interchangeably. Results cannot be interpreted as absolute evidence of the presence or absence of malignant disease. Performed at: [address] [id number] [employer]: Boo King PhD, Phone: [phone] Performed By: #### L 500405, L100.0100 #### [facility] [address] [facility]. [place], [place], [id number] HIVon 02-12-2025 HIV Non-Reactive Normal Nonreactive [facility] Comment on above: Order Comment: Reaso n for Exam: source Result Comment: Non- Reactive Reactive Repeatedly reactive samples must be confirmed according to CDC recommended confirmatory algorithms. The subresults for either HIVAG or AHIV can be used as an aid in the selection of the confirmation algorithm for reactive samples. [facility]. Order the HIV antibody detection and differentiation: lc#[id number] Performed By: #### L 3890.6102, L3890.6301, L3890.6006 ####[facility] [id number] [facility]. [place], [place], [id number] Hepatitis C Antibodyon 02-12 Hepatitis C Ab Non-Reactive Normal Nonreactive [facility] Comment on above: Order Comment: Reaso n for Exam: source Result Comment: Reac tive: Presumptive evidence of antibodies to HCV. Follow CDC recommendations for supplemental testing. Non-Reactive: Antibodies to HCV were not detected; does not exclude the possibility of exposure to HCV Reactive Results are presumptive evidence of antibodies to HCV. Follow CDC recommendations for supplemental testing. Order confirmation testing: HCV Quant by PCR testing - HCVPCR #[id number] Non Reactive: < 0.8 Equivocal: >/= 0.8 to < 1.0 Reactive: >/= 1.0 The CDC requires that a reactive/equivocal HCV antibody result be sent out for confirmation. HCV Quant by PCR testing. Performed By: #### L 3890.6102, L3890.6301, L3890.6006 ####[facility] [address] [place], [place], [id number] L3890.6102on 02-12-2025 HEP B Surf Ag Non-Reactive Normal Nonreactive [facility] Comment on above: Order Comment: Reaso n for Exam: source Result Comment: Reac tive: Presumptive evidence of HBV. Repeatedly reactive samples must be confirmed using a neutralization test ([employer] HBsAg Confirmatory Test) Non-Reactive: HBsAg not detected; does not exclude the possibility of exposure to HBV Performed By: #### L 3890.6102, L3890.6301, L3890.6006 ####[facility] [address] [place], [place], [id number] Absolute lymphocyte countOrd ered By: [facility] on 02-11-2025 Lymphocytes Auto (Unsp spec) [#/Vol] 1.52 10*3/uL 0.83-4.51 [facility] Absolute neutrophil countOrd ered By: [facility] on 02-11-2025 Neutrophils (Bld) [#/Vol] 7.2 10*3/uL 2.0-7.7 [facility] Anion gap in Serum or Plasma Ordered By: [facility] on 02-11-2025 Anion gap [Moles/Vol] 10 mmol/L 5-15 [facility] Automated lymphocyte count a s percentage of total leukocytesOrdered By: [facility] on 02-11-2025 Lymphocytes/100 WBC Auto (Unsp spec) 15.7 % Low 19-41 [facility] BUN/creatinine ratioOrdered By: [facility] on 02-11-2025 Urea nitrogen/Creatinine [Mass ratio] 29.5 mg/mg High 10-20 [facility] Basophil percentageOrdered B y: [facility] on 02-11-2025 Basophils/100 WBC (Bld) 0.3 % 0-1 [facility] Bilirubin, totalOrdered By: [facility] on 02-11-2025 Bilirubin [Mass/Vol] 0.38 mg/dL 0.00-1.30 [facility] CBC W/Diff, Automatedon 01-15 Absolute Lymph 1.52 X10 3/uL Normal 0.83-4.51 [facility] Comment on above: Performed By: #### L 500.4050, L100.0100 #### [facility] [address] [place], [address] Absolute Neut 7.2 X10 3/uL Normal 2.0-7.7 [facility] Comment on above: Performed By: #### L 500.4050, L100.0100 #### [facility] [address] [place], [address] Basophils/100 WBC (Bld) 0.3 % Normal 0-1 [facility] Comment on above: Performed By: #### L 500.4050, L100.0100 #### [facility] [address] [place], [address] Eosinophils/100 WBC (Bld) 0.9 % Normal 0-5 [facility] Comment on above: Performed By: #### L 500.4050, L100.0100 #### [facility] [address] [place], [address] Erythrocyte distribution width (RBC) [Ratio] 13.6 % Normal 11.6-14.6 [facility] Comment on above: Performed By: #### L 500.4050, L100.0100 #### [facility] [address] [place], [address] Hematocrit (Bld) [Volume fraction] 37.2 % Normal 37-47 [facility] Comment on above: Performed By: #### L 500.4050, L100.0100 #### [facility] [address] [place], [address] Hemoglobin (Bld) [Mass/Vol] 12.4 g/dL Normal 12.0-15.0 [facility] Comment on above: Performed By: #### L 500.4050, L100.0100 #### [facility] [address] [place], [address] IG% 0.300 Normal 0.0-0.9 [facility] Comment on above: Result Comment: IG% - Immature Granulocytes (promyelocytes, myelocytes and metamyelocytes) > 1% indicates that a LEFT SHIFT is Present. Performed By: #### L 500.4050, L100.0100 #### [facility] [address] [place], [address] Lymphocytes/100 WBC (Bld) 15.7 % Low 19-41 [facility] Comment on above: Performed By: #### L 500.4050, L100.0100 #### [facility] [address] [place], [address] MCH (RBC) [Entitic mass] 29.6 pg Normal 27.0-32.0 [facility] Comment on above: Performed By: #### L 500.4050, L100.0100 #### [facility] [address] [place], [address] MCHC (RBC) [Mass/Vol] 33.3 g/dL Normal 32-36 [facility] Comment on above: Performed By: #### L 500.4050, L100.0100 #### [facility] [address] [place], [address] MCV (RBC) [Entitic vol] 88.8 fL Normal 81-99 [facility] Comment on above: Performed By: #### L 500.4050, L100.0100 #### [facility] [address] [place], [address] Monocytes/100 WBC (Bld) 8.5 % Normal 0-10 [facility] Comment on above: Performed By: #### L 500.4050, L100.0100 #### [facility] [address] [place], [address] Neutrophils/100 WBC (Bld) 74.3 % High 47-70 [facility] Comment on above: Performed By: #### L 500.4050, L100.0100 #### [facility] [address] [place], [address] Nucleated RBC (Bld) [#/Vol] 0 10*3/uL Normal 0-5 [facility] Comment on above: Performed By: #### L 500.4050, L100.0100 #### [facility] [address] [place], [address] Platelet mean volume (Bld) [Entitic vol] 10.2 fL Normal 6.2-12.0 [facility] Comment on above: Performed By: #### L 500.4050, L100.0100 #### [facility] [address] [place], [address] Platelets (Bld) [#/Vol] 185 10*3/uL Normal 150-450 [facility] Comment on above: Performed By: #### L 500.4050, L100.0100 #### [facility] [address] [place], [address] RBC (Bld) [#/Vol] 4.19 10*6/uL Low 4.2-5.4 [facility] Comment on above: Performed By: #### L 500.4050, L100.0100 #### [facility] [address] [place], [address] RDW SD 43.8 fl Normal 35.1-43.9 [facility] Comment on above: Performed By: #### L 500.4050, L100.0100 #### [facility] [address] [place], [address] WBC (Bld) [#/Vol] 9.7 10*3/uL Normal 4.4-11.0 [facility] Comment on above: Performed By: #### L 500.4050, L100.0100 #### [facility] [address] [place], [address] CT Chest, Abd, Pel w/Contras ton 02-11-2025 CT Chest, Abd, Pel w/Contrast [facility] [address] [place], [place] [address] CT Chest, Abd, Pel w/Contrast MR#: [id number] Acct: [id number] Name: JESSICA ALARCON Rep #: [id number] : 1980 F 44 From: Efrain madrigal MD PCP: Adan Garcia, PEN TESTER-C Status: REG CLI Study: CT Chest, Abd, Pel w/Contrast Date of Exam: Exam# [id number] Ordering Dr: Ellen Dowling NP PEN TESTER -C PROCEDURE: CT CHEST, ABD, PEL W/CONTRAST 02/11/2025 REASON FOR EXAM: F/U OVARIAN CA Postprandial nausea. TECHNIQUE: Chest, abdomen and pelvis CT with intravenous contrast. Coronal and Sagittal reconstruction series were provided. One or more dose reduction techniques were used (e.g., Automated exposure control, adjustment of the mA and/or kV according to patient size, use of iterative reconstruction technique. PATIENT PREPARATION: Per protocol ORAL CONTRAST TYPE: None. CONTRAST: Isovue-300 VOLUME: 100mL RADIATION DOSE SUMMARY: CTDlvol: 23 mGy DLP: 2364.7 mGycm COMPARISON: Prior study dated December 02, 2024. FINDINGS: CT CHEST: Hardware: A right-sided port a catheter is seen with the tip in the superior vena cava. Lymph nodes: No suspicious lymph nodes are seen. Heart and Vasculature: The heart is nonenlarged. No coronary artery calcification is seen. Lungs and Airways: The lungs are clear. Pleura: No evidence of pleural effusion. Bones: Degenerative changes of the thoracic spine. CT ABDOMEN/PELVIS: Liver: Diffuse fatty infiltration. Gallbladder: Unremarkable Spleen: Normal size. Pancreas: Normal size without evidence of mass surrounding inflammation or ductal dilation. Adrenals: Unremarkable Kidneys: Normal renal sizes. No hydronephrosis. Bladder: Unremarkable Reproductive Organs: Status post hysterectomy and bilateral oophorectomy. Bowel: No bowel obstruction. Appendix: Unremarkable Lymph nodes: Unremarkable. Vasculature: The abdominal aorta and IVC are normal. Peritoneum / Retroperitoneum: Unremarkable Bones: Degenerative changes of the spine. CT/CT Chest, Abd, Pel w/Contrast IMPRESSION: Stable examination. Reading Location: [id number] CC: DIANNE Garcia; DIANNE Dowling Interior Block Wirer: Signed Normal [facility] Cancer antigen 125 (CA-125) measurementOrdered By: Coco Lima on 02-11-2025 Cancer antigen 125 (CA-125) measurement 15.4 U/mL 0.0-38.1 [facility] Comment on above: [facility] El ectrochemiluminescence Immunoassay(ECLIA)Values obtained with different assay methods or kits cannotbe used interchangeably. Results cannot be interpreted asabsolute evidence of the presence or absence of malignantdisease.Performed at: [employer] [id number] Director: Boo King PhD, Phone: [phone] Carbon dioxide, total [Moles /volume] in Central venous bloodOrdered By: Coco Lima on 02-11-2025 CO2 [Moles/Vol] 25.1 mmol/L 21.0-32.0 [facility] Chloride assayOrdered By: Nguyễn Lima on 02-11-2025 Chloride [Moles/Vol] 104 mmol/L 98-108 [facility] Comprehensive Metabolic Prof ilon 02-11-2025 Albumin [Mass/Vol] 3.8 g/dL Normal 3.5-5.0 [facility] Comment on above: Order Comment: PER N URSE-PT WANTED THESE TESTS FROM [facility] DONE Performed By: #### L 500.4050, L100.0100 #### [facility] [address] [facility] [place], [address] Albumin/Globulin [Mass ratio] 1.5 {ratio} Normal 0.9-2.4 [facility] Comment on above: Order Comment: PER N URSE-PT WANTED THESE TESTS FROM [facility] DONE Performed By: #### L 500.4050, L100.0100 #### [facility] [address] [place], [address] ALK PHOS 90 U/L Normal 35-104 [facility] Comment on above: Order Comment: PER N URSE-PT WANTED THESE TESTS FROM [facility] DONE Performed By: #### L 500.4050, L100.0100 #### [facility] [address] [place], [address] ALT [Catalytic activity/Vol] 16 U/L Normal <=34 [facility] Comment on above: Order Comment: PER N URSE-PT WANTED THESE TESTS FROM [facility] DONE Performed By: #### L 500.4050, L100.0100 #### [facility] [address] [place], [address] AST [Catalytic activity/Vol] 16 U/L Normal <=31 [facility] Comment on above: Order Comment: PER N URSE-PT WANTED THESE TESTS FROM [facility] DONE Performed By: #### L 500.4050, L100.0100 #### [facility] [address] [place], [address] Bilirubin [Mass/Vol] 0.38 mg/dL Normal 0.00-1.30 [facility] Comment on above: Order Comment: PER N URSE-PT WANTED THESE TESTS FROM [facility] DONE Performed By: #### L 500.4050, L100.0100 #### [facility] [address] [place], [address] BUN/CRE 29.5 RATIO High 10-20 [facility] Comment on above: Order Comment: PER N URSE-PT WANTED THESE TESTS FROM [facility] DONE Performed By: #### L 500.4050, L100.0100 #### [facility] [address] [place], [address] Calcium [Mass/Vol] 9.1 mg/dL Normal 7.6-11.0 [facility] Comment on above: Order Comment: PER N URSE-PT WANTED THESE TESTS FROM [facility] DONE Performed By: #### L 500.4050, L100.0100 #### [facility] [address] [place], [address] Chloride [Moles/Vol] 104 mmol/L Normal 98-108 [facility] Comment on above: Order Comment: PER N URSE-PT WANTED THESE TESTS FROM [facility] DONE Performed By: #### L 500.4050, L100.0100 #### [facility] [address] [place], [address] CO2 [Moles/Vol] 25.1 mmol/L Normal 21.0-32.0 [facility] Comment on above: Order Comment: PER N URSE-PT WANTED THESE TESTS FROM [facility] DONE Performed By: #### L 500.4050, L100.0100 #### [facility] [address] [place], [address] Creatinine [Mass/Vol] 0.64 mg/dL Low 0.70-1.20 [facility] Comment on above: Order Comment: PER N URSE-PT WANTED THESE TESTS FROM [facility] DONE Performed By: #### L 500.4050, L100.0100 #### [facility] [address] [place], [address] GAP 10 Normal 5-15 [facility] Comment on above: Order Comment: PER N URSE-PT WANTED THESE TESTS FROM [facility] DONE Performed By: #### L 500.4050, L100.0100 #### [facility] [address] [place], [address] GFR/1.73 sq M.predicted among non-blacks MDRD (S/P/Bld) [Vol rate/Area] 112 mL/min/{1.73_m2} Normal >60 [facility] Comment on above: Order Comment: PER N URSE-PT WANTED THESE TESTS FROM [facility] DONE Result Comment: mL/m in/1.73m2 CKD-EPI Creatinine Equation (2020) Performed By: #### L 500.4050, L100.0100 #### [facility] [address] [place], [address] Globulin (S) [Mass/Vol] 2.5 g/dL Normal 2.2-4.2 [facility] Comment on above: Order Comment: PER N URSE-PT WANTED THESE TESTS FROM [facility] DONE Performed By: #### L 500.4050, L100.0100 #### [facility] [address] [place], [address] Glucose [Mass/Vol] 91 mg/dL Normal 70-99 [facility] Comment on above: Order Comment: PER N URSE-PT WANTED THESE TESTS FROM [facility] DONE Performed By: #### L 500.4050, L100.0100 #### [facility] [address] [place], [address] Potassium [Moles/Vol] 4.2 mmol/L Normal 3.3-5.1 [facility] Comment on above: Order Comment: PER N URSE-PT WANTED THESE TESTS FROM [facility] DONE Performed By: #### L 500.4050, L100.0100 #### [facility] [address] [place], [address] Sodium [Moles/Vol] 138 mmol/L Normal 133-145 [facility] Comment on above: Order Comment: PER N URSE-PT WANTED THESE TESTS FROM [facility] DONE Performed By: #### L 500.4050, L100.0100 #### [facility] [address] [place], [address] T PROT 6.3 g/dL Normal 5.9-8.4 [facility] Comment on above: Order Comment: PER N URSE-PT WANTED THESE TESTS FROM [facility] DONE Performed By: #### L 500.4050, L100.0100 #### [facility] [address] [place], [place], [address] Urea nitrogen [Mass/Vol] 19 mg/dL Normal 4-19 [facility] Comment on above: Order Comment: ASHLEE LINARES [facility] Performed By: #### L 500.4050, L100.0100 #### [facility] [address] [place], [address] Eosinophil percentageOrdered By: Coco Lima on 02-11-2025 Eosinophils/100 WBC (Bld) 0.9 % 0-5 [facility] Erythrocyte distribution wid th ratioOrdered By: [facility] on 02-11-2025 Erythrocyte distribution width (RBC) [Ratio] 13.6 % 11.6-14.6 [facility] Erythrocyte distribution wid th standard deviationOrdered By: [facility] on 02-11-2025 Erythrocyte distribution width (RBC) [Ratio] 43.8 fl 35.1-43.9 [facility] Glomerular filtration rate ( GFR) estimation/1.73 sq m using serum, plasma, or whole bOrdered By: [facility] on 02-11-2025 GFR/1.73 sq M.predicted among non-blacks MDRD (S/P/Bld) [Vol rate/Area] 112 mL/min/{1.73_m2} >60 [facility] Comment on above: mL/min/1.73m2 CKD-EP I Creatinine Equation (2020) Hematocrit Auto (Bld) [Volum e fraction]Ordered By: Coco Lima on 02-11-2025 Hematocrit (Bld) [Volume fraction] 37.2 % 37-47 [facility] Hemoglobin measurementOrdere d By: Coco Lima on 02-11-2025 Hemoglobin (Bld) [Mass/Vol] 12.4 g/dL 12.0-15.0 [facility] Immature granulocytes/100 WB C Auto (Bld)Ordered By: Coco Lima on 02-11-2025 Immature granulocytes/100 WBC (Bld) 0.300 % 0.0-0.9 [facility] Comment on above: IG% - Immature Granu locytes (promyelocytes, myelocytes and metamyelocytes) > 1% indicates that a LEFT SHIFT is Present. Laboratory - Chemistry and C hemistry - challengeOrdered By: Evariadne Lima on 02-11-2025 AST [Catalytic activity/Vol] 16 U/L <32 [facility] - Microbiology an d Antimicrobial susceptibilityOrdered By: [facility] on 02-11-2025 HBV surface Ag Ql (S) Non-Reactive Nonreactive [facility] Comment on above: Reactive: Presumptiv e evidence of HBV. Repeatedly reactive samples must be confirmed using a neutralization test ([employer] HBsAg Confirmatory Test)Non-Reactive: HBsAg not detected; does not exclude the possibility of exposure to HBV MCV (mean corpuscular volume ) determinationOrdered By: [facility] on 02-11-2025 MCV (RBC) [Entitic vol] 88.8 fL 81-99 [facility] Mean corpuscular hemoglobin (MCH) determinationOrdered By: [facility] on 02-11-2025 MCH (RBC) [Entitic mass] 29.6 pg 27.0-32.0 [facility] Mean corpuscular hemoglobin concentration (MCHC) determinationOrdered By: [facility] on 02-11-2025 MCHC (RBC) [Mass/Vol] 33.3 g/dL 32-36 [facility] Mean platelet volume determi nationOrdered By: [facility] on 02-11-2025 Platelet mean volume (Bld) [Entitic vol] 10.2 fL 6.2-12.0 [facility] Monocyte percentageOrdered B y: [facility] on 02-11-2025 Monocytes/100 WBC (Bld) 8.5 % 0-10 [facility] Neutrophil percentageOrdered By: [facility] on 02-11-2025 Neutrophils/100 WBC (Bld) 74.3 % High 47-70 [facility] No Panel InformationOrdered By: [employer] [facility] on 02-11-2025 HIV (1&2) Antibody Non-Reactive Nonreactive [facility] Comment on above: Non-ReactiveReactive Repeatedly reactive samples must be confirmed according to CDC recommended confirmatory algorithms. The subresults for either HIVAG or AHIV can be used as an aid in the selection of the confirmation algorithm for reactive samples.Send out specimens with Reactive results to [facility] for confirmation.Order the HIV antibody detection and differentiation: #[id number] Nucleated red blood cell per centageOrdered By: Coco Lima on 02-11-2025 Nucleated RBC/100 WBC (Bld) [Ratio] 0 % 0-5 [facility] Platelet countOrdered By: Nguyễn Lima on 02-11-2025 Platelets (Bld) [#/Vol] 185 10*3/uL 150-450 [facility] Potassium measurement (mass/ volume)Ordered By: Coco Lima on 02-11-2025 Potassium (Unsp spec) [Mass/Vol] 4.2 mmol/L 3.3-5.1 [facility] RBC Auto (Bld) [#/Vol]Ordere d By: Coco Lima on 02-11-2025 RBC (Bld) [#/Vol] 4.19 10*6/uL Low 4.2-5.4 [facility] Serum creatinine measurement (mass/volume)Ordered By: Coco Lima on 02-11-2025 Creatinine [Mass/Vol] 0.64 mg/dL Low 0.70-1.20 [facility] Serum globulin measurementOr dered By: Coco Lima on 02-11-2025 Globulin (S) [Mass/Vol] 2.5 g/dL 2.2-4.2 [facility] Serum glucose measurement (m ass/volume)Ordered By: Coco Lima on 02-11-2025 Glucose [Mass/Vol] 91 mg/dL 70-99 [facility] Serum or plasma alanine pruitt otransferase (ALT) measurementOrdered By: Coco Lima on 02-11-2025 ALT [Catalytic activity/Vol] 16 U/L <35 [facility] Serum or plasma albumin guy urement (mass/volume)Ordered By: Coco Lima on 02-11-2025 Albumin [Mass/Vol] 3.8 g/dL 3.5-5.0 [facility] Serum or plasma albumin/glob ulin mass ratioOrdered By: Coco Lima on 02-11-2025 Albumin/Globulin [Mass ratio] 1.5 {ratio} 0.9-2.4 [facility] Serum or plasma alkaline latoya sphatase measurementOrdered By: Coco Janie on 02-11-2025 ALP [Catalytic activity/Vol] 90 U/L 35-104 [facility] Serum or plasma calcium guy urement (mass/volume)Ordered By: Coco Janie on 02-11-2025 Calcium [Mass/Vol] 9.1 mg/dL 7.6-11.0 [facility] Serum or plasma urea nitroge n measurement (mass/volume)Ordered By: Evariadne Lima on 02-11-2025 Urea nitrogen [Mass/Vol] 19 mg/dL 4-19 [facility] Sodium levelOrdered By: Ev ariadne Janie on 02-11-2025 Sodium [Moles/Vol] 138 mmol/L 133-145 [facility] Total proteinOrdered By: Get mckay Janie on 02-11-2025 Protein [Mass/Vol] 6.3 g/dL 5.9-8.4 [facility] White blood cell (WBC) count Ordered By: Coco Janie on 02-11-2025 WBC (Bld) [#/Vol] 9.7 10*3/uL 4.4-11.0 [facility] Orthopedic Visit Reporton Orthopedic Visit Report [facility] [address] [place] [address] OFFICE VISIT Date of Service: 01/25/25 MR#: [id number] Acct: [id number] Name: JESSICA ALARCON Rep #: [id number] : 1980 Provider: Dr. Pradeep fairchild MD Age/Sex: 44/F Location: [facility] [email or web address] Status: Signed with Addenda ADDENDUM by NGUYỄN Chavis on 01/25/25 at 1552 Office Procedure Documentation entered by Nicky Chavis MA 01/25/25 15:52: Ortho Injections Injections Yes Carpal Tunnel Injection Bilateral Is this a patient provided medication?: No Details: Obtained consent for injection. Under sterile conditions, injected the patients bilateral carpal tunnel with 1cc Kenalog, and 2cc Bupivacaine x2. The patient tolerated the injection well without any noted complication. Patient should call our office if redness develops, pain worsens or if they have any concerns. Office Meds Kenalog 40 mg/mL suspension for injection Performing Provider: Pradeep Chandler MD Performing Location: [facility] Administered by: Pradeep Chandler MD on 01/25/25 15:48 Dose Route Admin Location Dispensed Lot Number Expiration Date JEAN[employer]PAUL [employer] 40 mg intra-articular Bilateral carpal tunnel 1 mL [id number] 04/16/27 0003- 0293-28 [employer] Date cc: * Signed Intake Vital Signs 01/18/25 08:23 Height 5 ft 6 in Weight: 250 lb BMI 40.3 Intake Visit Reasons: BL HANDS Chief Complaint: Bilateral hands Accompanied by: Is patient in pain?: Yes Allergies paclitaxel (From Taxol) Allergy (Severe, Verified 01/25/25 14:26) Anaphylaxis Medications ???Medication ???Instructions ???Recorded ???Confirmed ???Type MAGIC MOUTH WASH (BMX) 180 mL ml PO #180 mL 05/14/24 01/25/25 Hi story suspension albuterol sulfate 90 mcg/actuation 1 inh inhalation ONCE 05/14/24 0 01/25/25 History aerosol inhaler loratadine 10 mg tablet (Claritin) 10 mg PO DAILY 05/14/24 01/25/25 History dicyclomine 20 mg tablet 20 mg PO .QID PRN 06/04/24 5 History loperamide 2 mg capsule 2 mg PO Q6H PRN 06/04/24 01/25/25 History omeprazole 20 mg tablet,delayed 20 mg PO QDAY 06/04/24 01/25/25 Hi story release prochlorperazine maleate 10 mg 10 mg PO Q6H PRN nausea and 01/25/25 Rx tablet vomiting #30 tabs dexamethasone 4 mg tablet 8 mg (2 x 4 mg) PO .COMPLEX #12 01/25/25 Rx tabs lidocaine-prilocaine 2.5 %-2.5 % 1 applic topical ONCE PRN PORT 11/0901/25/25 Rx topical cream ACCESS 30 days #30 grams nystatin 100,000 unit/mL oral 5 ml PO Q6H PRN #473 mL 07/15/24 0 01/25/25 Rx suspension nystatin 100,000 unit/gram topical 1 applic topical BID #30 grams 1 09/20/23 01/25/25 Rx cream ondansetron 8 mg disintegrating 8 mg PO Q8H PRN nausea and 4 01/25/25 Rx tablet vomiting #30 tabs letrozole 2.5 mg tablet (Femara) 2.5 mg PO QDAY 30 days #30 tabs 01/25/25 Rx clonazepam 0.5 mg tablet 0.5 mg PO DAILY PRN 12/09/2401/25 History fluoxetine 20 mg tablet 40 mg PO DAILY 12/09/24 01/25/25 H istory PFSH Medical History Bilateral carpal tunnel syndrome Swelling of both lower extremities Cough Pleural effusion Candidiasis of breast UTI (urinary tract infection) Dysuria Oral candidiasis Diarrhea due to drug Encounter for chemotherapy management 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 carcinomatosis Ovarian cancer Acute superficial venous thrombosis of lower extremity Anxiety and depression Carcinoma of ovary, stage 3 Surgical History History of appendectomy History of colposcopy H/O LEEP History of hysterectomy Family History Aunt Breast cancer Cancer Father's side Aunt Breast cancer Great aunt Social History Smoking Status: Never smoker alcohol intake: current alcohol intake frequency: holidays/special occasions only substance use type: does not use HPI BL HANDS Details: This documentation accurately reflects the service provided and the decisions made by me, Dr. Pradeep Chandler MD 01/25/25 1003. Part of today???s visit was documented by [ ], acting as scribe. JESSICA ALARCON is a 44 year old F here today for bilateral carpal tunnel syndrome. Patient is desiring to go ahead with a cortisone injection today. We had discussed still waiting at last visit as this can delay the ability to move forward with surgery. Coding Level of Care Code Attention Mona Diagnoses Bilateral carpal tunnel syndrome G56.03 Comment 9 (more content not included)... Normal [facility] Orthopedic Visit Reporton Orthopedic Visit Report [facility] [address] [place] [address] OFFICE VISIT Date of Service: 01/18/25 MR#: [id number] Acct: [id number] Name: JESSICA ALARCON Rep #: [id number] : 1980 Provider: Dr. Pradeep fairchild MD Age/Sex: 44/F [place] [facility] [place] Status: Signed Intake Vital Signs 12/09/24 13:38 01/18/25 08:23 Height 5 ft 6 in 5 ft 6 in Weight: 272 lb 8 oz 250 lb BMI 43.9 40.3 BP 122/85 H Blood Pressure Location Lt brachial Position Sitting Respiration 16 Pulse 88 Pulse Source Monitor Temp 97.8 F Pulse Oximetry (%) 97 Oxygen Delivery Method room air Intake Visit Reasons: BILATERAL HANDS Chief Complaint: Bilateral hands Accompanied by: Is patient in pain?: No Allergies paclitaxel (From Taxol) Allergy (Severe, Verified 01/18/25 08:27) Anaphylaxis Medications ???Medication ???Instructions ???Recorded ???Confirmed ???Type MAGIC MOUTH WASH (BMX) 180 mL ml PO #180 mL 05/14/24 01/18/25 Hi story suspension albuterol sulfate 90 mcg/actuation 1 inh inhalation ONCE 05/14/24 0 01/18/25 History aerosol inhaler loratadine 10 mg tablet (Claritin) 10 mg PO DAILY 05/14/24 01/18/25 History dicyclomine 20 mg tablet 20 mg PO .QID PRN 06/04/24 5 History loperamide 2 mg capsule 2 mg PO Q6H PRN 06/04/24 01/18/25 History omeprazole 20 mg tablet,delayed 20 mg PO QDAY 06/04/24 01/18/25 Hi story release prochlorperazine maleate 10 mg 10 mg PO Q6H PRN nausea and 01/18/25 Rx tablet vomiting #30 tabs dexamethasone 4 mg tablet 8 mg (2 x 4 mg) PO .COMPLEX #12 01/18/25 Rx tabs lidocaine-prilocaine 2.5 %-2.5 % 1 applic topical ONCE PRN PORT 11/0901/18/25 Rx topical cream ACCESS 30 days #30 grams nystatin 100,000 unit/mL oral 5 ml PO Q6H PRN #473 mL 07/15/24 0 01/18/25 Rx suspension nystatin 100,000 unit/gram topical 1 applic topical BID #30 grams 1 09/20/23 01/18/25 Rx cream ondansetron 8 mg disintegrating 8 mg PO Q8H PRN nausea and 4 01/18/25 Rx tablet vomiting #30 tabs letrozole 2.5 mg tablet (Femara) 2.5 mg PO QDAY 30 days #30 tabs 01/18/25 Rx clonazepam 0.5 mg tablet 0.5 mg PO DAILY PRN 12/09/2401/18 History fluoxetine 20 mg tablet 40 mg PO DAILY 12/09/24 01/18/25 H istory Have you fallen in the past year?: Yes PFSH Medical History Bilateral carpal tunnel syndrome Swelling of both lower extremities Cough Pleural effusion Candidiasis of breast UTI (urinary tract infection) Dysuria Oral candidiasis Diarrhea due to drug Encounter for chemotherapy management 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 carcinomatosis Ovarian cancer Acute superficial venous thrombosis of lower extremity Anxiety and depression Carcinoma of ovary, stage 3 Surgical History History of appendectomy History of colposcopy H/O LEEP History of hysterectomy Family History Aunt Breast cancer Cancer Father's side Aunt Breast cancer Great aunt Social History Smoking Status: Never smoker alcohol intake: current alcohol intake frequency: holidays/special occasions only substance use type: does not use HPI BILATERAL HANDS Details: This documentation accurately reflects the service provided and the decisions made by me, Dr. Pradeep Chandler MD 01/18/25 0756. Part of today???s visit was documented by [ ], acting as scribe. JESSICA ALARCON is a 44 year old F here today for FU bilat CTS. patient has had effective injections in the past no nerve studies yet I did order them at last visit. The numbness and tingling and burning in the hands is getting worse even just sitting there in confucianism. The patient does want to proceed toward surgery and is thinking about repeat injections today. Coding Level of Care Code Off vis,est,level 4 Diagnoses Bilateral carpal tunnel syndrome G56.03 Comment Assessment and Plan Assessment and Plan (1) Bilateral carpal tunnel syndrome: Status: Acute Plan: JESSICA ALARCON is a 44 year old F here today for FU bilat CTS. we did discuss the possibility of going ahead with cortisone injections but typically due to concerns for increased risk of infection I try not to do these within 3 months of having a surgery and the patient does want to go ahead with endoscopic bilateral carpal tunnel release so I went ahead and ordered repeat nerve studies/EMG we will hold off on the cortisone injections for today follow-up after the test to go ahead and book the surgery. She und (more content not included)... Normal [facility] Gram Stainon 01-01-2025 GS Gram Stain No organisms seen Normal [facility] Comment on above: Performed By: #### L 500.4050, L100.0100 #### [facility] [address] [place], [address] Nasopharyngeal Cultureon NAC No growth in 48 hours. Normal [facility] Comment on above: Performed By: #### L 500.4050, L100.0100 #### [facility] [address] [place], [address] Gram stainOrdered By: Fox ny on 12-31-2024 Microscopic observation Gram stain Nom (Unsp spec) [facility] Oncology Visit Reporton 11-15 Oncology Visit Report [facility] [address] [place] [address] OFFICE VISIT Date of Service: 12/09/24 1333 MR#: [id number] Acct: [id number] Name: JESSICA ALARCON Rep #: [id number] : 1980 From: Coco Lima MD Age/Sex: 44/F Location[place] [facility] [place] Status: Signed HPI Subjective Date of Service 12/09/24 Chief Complaint Ovarian cancer on treatment History of Present Illness 43-year-old female who was diagnosed with Asherman's syndrome for several years and in 2023 experienced increasing abdominal and pelvic pain and a CT scan of the abdomen and pelvis revealed a pelvic mass and an elevated CA125 of 76. February 2024 she had genetic testing ([employer]) that showed no known pathogenic variants. 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 March 2024 next generation sequence, tissue: No potentially actionable pathogenic variants, tumor mutational burden was low (3.2M/MB) April 22, 2024 received 1 cycle of carboplatin Taxol but developed an anaphylactic reaction to Taxol. May 13, 2024 received the second cycle with carboplatin and Taxotere replace Taxol. This was complicated with excessive GI toxicity requiring hospitalization May 19-2023, she was neutropenic but not febrile. CA-125 05/11/24 446 04/20/24 181 03/25/24 76 June 04, 2024 transferred her care to [facility] and resumed carboplatin and Taxotere with maximum supportive care. August 05, 2024 left pleural thoracocentesis at [facility] 1100 cc negative for malignancy. August 26, 2024 recurrent left pleural effusion thoracocentesis: Negative for malignancy September 01, 2024 CT chest abdomen and pelvis: FINDINGS: CHEST A right-sided shannan catheter seen with the tip in the superior vena cava. Stable moderate-sized left pleural effusion with left basilar compressive atelectasis and/or infiltrate. Small amount of fluid is seen in the left major fissure. The right lung is clear. There is no demonstrated pleural abnormality. Normal heart and pericardium. Normal mediastinum. Normal hilar regions. Normal unenhanced pulmonary arteries. Normal aorta arch and descending thoracic aorta. Normal osseous structures. ABDOMEN There is decreased attenuation of the liver consistent with steatosis. Small amount of perihepatic fluid. Small amount of fluid in the : Gutters bilaterally. Normal gallbladder and extrahepatic biliary system. Normal spleen. Normal pancreas. Normal bilateral adrenal glands. Normal right kidney. Normal left kidney. Normal visualized stomach. Normal small intestine. There are scattered colonic diverticula consistent with diverticulosis. The appendix is visualized and appears normal. Normal abdominal aorta. Normal inferior vena cava. Normal retroperitoneum. Normal abdominal wall. Normal osseous structures. PELVIS Normal urinary bladder. Pelvic ascites. Status post hysterectomy. There is no pelvic lymphadenopathy or mass lesion. Normal visualized pelvic arteries. IMPRESSION: Ascites. Diffuse fatty infiltration of the liver. Moderate size left pleural effusion with left basilar atelectasis. December 02, 2024 CT chest abdomen and pelvis: IMPRESSION: Interval resolution of the left pleural effusion. Fatty infiltration of the liver. No acute abnormality is seen. Treatment summary and response: * March 2024 laparoscopic hysterectomy, BSO, omentectomy and staging. 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 Normal [facility] Cancer Antigen 125on 025 CA 125 16.2 U/mL Normal 0.0-38.1 [facility] Comment on above: Result Comment: [employer] Electrochemiluminescence Immunoassay (ECLIA) Values obtained with different assay methods or kits cannot be used interchangeably. Results cannot be interpreted as absolute evidence of the presence or absence of malignant disease. Performed at: [address] [id number] [employer]: Boo King PhD, Phone: [phone] Performed By: #### L 501.5200, L501.2300, L3100.5000, L500.4050, L100.0100 ####[facility] [address] [place], [address] Absolute lymphocyte countOrd ered By: [facility] on 12-02-2024 Lymphocytes Auto (Unsp spec) [#/Vol] 1.19 10*3/uL 0.83-4.51 [facility] Absolute neutrophil countOrd ered By: [facility] on 12-02-2024 Neutrophils (Bld) [#/Vol] 5.0 10*3/uL 2.0-7.7 [facility] Anion gap in Serum or Plasma Ordered By: [facility] on 12-02-2024 Anion gap [Moles/Vol] 11 mmol/L 5-15 [facility] Automated lymphocyte count a s percentage of total leukocytesOrdered By: [facility] on 12-02-2024 Lymphocytes/100 WBC Auto (Unsp spec) 17.3 % Low 19-41 [facility] BUN/creatinine ratioOrdered By: [facility] on 12-02-2024 Urea nitrogen/Creatinine [Mass ratio] 34.1 mg/mg High 10-20 [facility] Basophil percentageOrdered B y: [facility] on 12-02-2024 Basophils/100 WBC (Bld) 0.3 % 0-1 [facility] Bilirubin, totalOrdered By: [facility] Janie on 12-02-2024 Bilirubin [Mass/Vol] 0.33 mg/dL 0.00-1.30 [facility] CBC W/Diff, Automatedon 11-14 Absolute Lymph 1.19 X10 3/uL Normal 0.83-4.51 [facility] Comment on above: Performed By: #### L 501.5200, L501.2300, L3100.5000, L500.4050, L100.0100 ####[facility] [address] [place], [address] Absolute Neut 5.0 X10 3/uL Normal 2.0-7.7 [facility] Comment on above: Performed By: #### L 501.5200, L501.2300, L3100.5000, L500.4050, L100.0100 ####[facility] [address] [place], [address] Basophils/100 WBC (Bld) 0.3 % Normal 0-1 [facility] Comment on above: Performed By: #### L 501.5200, L501.2300, L3100.5000, L500.4050, L100.0100 ####[facility] [address] [place], [address] Eosinophils/100 WBC (Bld) 1.0 % Normal 0-5 [facility] Comment on above: Performed By: #### L 501.5200, L501.2300, L3100.5000, L500.4050, L100.0100 ####[facility] [address] [place], [address] Erythrocyte distribution width (RBC) [Ratio] 14.9 % High 11.6-14.6 [facility] Comment on above: Performed By: #### L 501.5200, L501.2300, L3100.5000, L500.4050, L100.0100 ####[facility] [address] [place], [address] Hematocrit (Bld) [Volume fraction] 36.6 % Low 37-47 [facility] Comment on above: Performed By: #### L 501.5200, L501.2300, L3100.5000, L500.4050, L100.0100 ####[facility] [address] [place], [address] Hemoglobin (Bld) [Mass/Vol] 11.9 g/dL Low 12.0-15.0 [facility] Comment on above: Performed By: #### L 501.5200, L501.2300, L3100.5000, L500.4050, L100.0100 ####[facility] [address] [place], [address] IG% 0.300 Normal 0.0-0.9 [facility] Comment on above: Result Comment: IG% - Immature Granulocytes (promyelocytes, myelocytes and metamyelocytes) > 1% indicates that a LEFT SHIFT is Present. Performed By: #### L 501.5200, L501.2300, L3100.5000, L500.4050, L100.0100 ####[facility] [address] [place], [address] Lymphocytes/100 WBC (Bld) 17.3 % Low 19-41 [facility] Comment on above: Performed By: #### L 501.5200, L501.2300, L3100.5000, L500.4050, L100.0100 ####[facility] [address] [place], [address] MCH (RBC) [Entitic mass] 28.5 pg Normal 27.0-32.0 [facility] Comment on above: Performed By: #### L 501.5200, L501.2300, L3100.5000, L500.4050, L100.0100 ####[facility] [address] [place], [address] MCHC (RBC) [Mass/Vol] 32.5 g/dL Normal 32-36 [facility] Comment on above: Performed By: #### L 501.5200, L501.2300, L3100.5000, L500.4050, L100.0100 ####[facility] [address] [place], [address] MCV (RBC) [Entitic vol] 87.8 fL Normal 81-99 [facility] Comment on above: Performed By: #### L 501.5200, L501.2300, L3100.5000, L500.4050, L100.0100 ####[facility] [address] [place], [address] Monocytes/100 WBC (Bld) 8.7 % Normal 0-10 [facility] Comment on above: Performed By: #### L 501.5200, L501.2300, L3100.5000, L500.4050, L100.0100 ####[facility] [address] [place], [address] Neutrophils/100 WBC (Bld) 72.4 % High 47-70 [facility] Comment on above: Performed By: #### L 501.5200, L501.2300, L3100.5000, L500.4050, L100.0100 ####[facility] [address] [place], [address] Nucleated RBC (Bld) [#/Vol] 0 10*3/uL Normal 0-5 [facility] Comment on above: Performed By: #### L 501.5200, L501.2300, L3100.5000, L500.4050, L100.0100 ####[facility] [address] [place], [address] Platelet mean volume (Bld) [Entitic vol] 10.6 fL Normal 6.2-12.0 [facility] Comment on above: Performed By: #### L 501.5200, L501.2300, L3100.5000, L500.4050, L100.0100 ####[facility] [address] [place], [address] Platelets (Bld) [#/Vol] 200 10*3/uL Normal 150-450 [facility] Comment on above: Performed By: #### L 501.5200, L501.2300, L3100.5000, L500.4050, L100.0100 ####[facility] [address] [place], [address] RBC (Bld) [#/Vol] 4.17 10*6/uL Low 4.2-5.4 [facility] Comment on above: Performed By: #### L 501.5200, L501.2300, L3100.5000, L500.4050, L100.0100 ####[facility] [address] [place], [address] RDW SD 47.6 fl High 35.1-43.9 [facility] Comment on above: Performed By: #### L 501.5200, L501.2300, L3100.5000, L500.4050, L100.0100 ####[facility] [address] [place], [address] WBC (Bld) [#/Vol] 6.9 10*3/uL Normal 4.4-11.0 [facility] Comment on above: Performed By: #### L 501.5200, L501.2300, L3100.5000, L500.4050, L100.0100 ####[facility] [address] [place], [address] CT Chest, Abd, Pel w/Contras ton 12-02-2024 CT Chest, Abd, Pel w/Contrast [facility] [address] [place] [address] CT Chest, Abd, Pel w/Contrast MR#: [id number] Acct: [id number] Name: JESSICA ALARCON Rep #: [id number] : 1980 F 44 From: Efrain madrigal MD PCP: Adan Garcia NP-C Status: REG CLI Study: CT Chest, Abd, Pel w/Contrast Date of Exam: Exam# [id number] Ordering Dr: Coco Lima MD PROCEDURE: CT CHEST, ABD, PEL W/CONTRAST 12/02/2024 REASON FOR EXAM: F/U OVARIAN CANCER TECHNIQUE: Chest, abdomen and pelvis CT with intravenous contrast. Coronal and Sagittal reconstruction series were provided. One or more dose reduction techniques were used (e.g., Automated exposure control, adjustment of the mA and/or kV according to patient size, use of iterative reconstruction technique. PATIENT PREPARATION: Per protocol ORAL CONTRAST TYPE: Given CONTRAST: Isovue-300 VOLUME: 100 mLmL RADIATION DOSE SUMMARY: CTDlvol: 16 mGy DLP: 1731.57 mGycm COMPARISON: Comparison is made with prior study dated September 01, 2024. FINDINGS: CT CHEST: Hardware: A right-sided port a catheter is seen with the tip in the superior vena cava. Lymph nodes: No suspicious lymph nodes are seen. Heart and Vasculature: Coronary artery calcifications are noted. Lungs and Airways: No pulmonary infiltrate or pulmonary nodule is seen. Pleura: The previously seen left pleural effusion has resolved. Bones: Degenerative changes of the thoracic spine. CT ABDOMEN/PELVIS: Liver: Diffuse fatty infiltration. Gallbladder: Unremarkable. Spleen: Normal size. Pancreas: Normal size without evidence of mass surrounding inflammation or ductal dilation. Adrenals: Unremarkable Kidneys: Normal renal sizes. No hydronephrosis. Bladder: Unremarkable. Reproductive Organs: Prior hysterectomy. Bilateral oophorectomy. Bowel: Colonic diverticulosis without diverticulitis. Appendix: The appendix is not identified. There is no inflammatory process identified in the right lower quadrant to suggest appendicitis. Lymph nodes: Unremarkable. Vasculature: The abdominal aorta and IVC are normal. Peritoneum / Retroperitoneum: Unremarkable. Bones: Unremarkable CT/CT Chest, Abd, Pel w/Contrast IMPRESSION: Interval resolution of the left pleural effusion. Fatty infiltration of the liver. No acute abnormality is seen. Reading Location: [place] [address] CC: PEN TESTER-C Adan Garcia; Dr. Coco Lima MD Interior Block Wirer: Signed Normal [facility] Cancer antigen 125 (CA-125) measurementOrdered By: Coco Lima on 12-02-2024 CA 125 Antigen 16.2 U/mL 0.0-38.1 [facility] Comment on above: [employer] ectrochemiluminescence Immunoassay(ECLIA)Values obtained with different assay methods or kits cannotbe used interchangeably. Results cannot be interpreted asabsolute evidence of the presence or absence of malignantdisease.Performed at: [facility] [id number] Director: Boo King PhD, Phone: [phone] Cancer antigen 125 (CA-125) measurement 16.2 U/mL 0.0-38.1 [facility] Comment on above: [employer] ectrochemiluminescence Immunoassay(ECLIA)Values obtained with different assay methods or kits cannotbe used interchangeably. Results cannot be interpreted asabsolute evidence of the presence or absence of malignantdisease.Performed at: [facility] [id number] Director: Boo King PhD, Phone: [phone] Carbon dioxide, total [Moles /volume] in Central venous bloodOrdered By: Coco Lima on 12-02-2024 CO2 [Moles/Vol] 24.6 mmol/L 21.0-32.0 [facility] Chloride assayOrdered By: Nguyễn Lima on 12-02-2024 Chloride [Moles/Vol] 104 mmol/L 98-108 [facility] Comprehensive Metabolic Prof ilon 12-02-2024 Albumin [Mass/Vol] 3.9 g/dL Normal 3.5-5.0 [facility] Comment on above: Performed By: #### L 501.5200, L501.2300, L3100.5000, L500.4050, L100.0100 ####[facility] [address] [place], [address] Albumin/Globulin [Mass ratio] 1.3 {ratio} Normal 0.9-2.4 [facility] Comment on above: Performed By: #### L 501.5200, L501.2300, L3100.5000, L500.4050, L100.0100 ####[facility] [address] [place], [address] ALK PHOS 99 U/L Normal 35-104 [facility] Comment on above: Performed By: #### L 501.5200, L501.2300, L3100.5000, L500.4050, L100.0100 ####[facility] [address] [place], [address] ALT [Catalytic activity/Vol] 35 U/L Normal <=34 [facility] Comment on above: Performed By: #### L 501.5200, L501.2300, L3100.5000, L500.4050, L100.0100 ####[facility] [address] [place], [address] AST [Catalytic activity/Vol] 24 U/L Normal <=31 [facility] Comment on above: Performed By: #### L 501.5200, L501.2300, L3100.5000, L500.4050, L100.0100 ####[facility] [address] [place], [address] Bilirubin [Mass/Vol] 0.33 mg/dL Normal 0.00-1.30 [facility] Comment on above: Performed By: #### L 501.5200, L501.2300, L3100.5000, L500.4050, L100.0100 ####[facility] [address] [place], [address] BUN/CRE 34.1 RATIO High 10-20 [facility] Comment on above: Performed By: #### L 501.5200, L501.2300, L3100.5000, L500.4050, L100.0100 ####[facility] [address] [place], [address] Calcium [Mass/Vol] 9.1 mg/dL Normal 7.6-11.0 [facility] Comment on above: Performed By: #### L 501.5200, L501.2300, L3100.5000, L500.4050, L100.0100 ####[facility] [address] [place], [address] Chloride [Moles/Vol] 104 mmol/L Normal 98-108 [facility] Comment on above: Performed By: #### L 501.5200, L501.2300, L3100.5000, L500.4050, L100.0100 ####[facility] [address] [place], [address] CO2 [Moles/Vol] 24.6 mmol/L Normal 21.0-32.0 [facility] Comment on above: Performed By: #### L 501.5200, L501.2300, L3100.5000, L500.4050, L100.0100 ####[facility] [address] [place], [address] Creatinine [Mass/Vol] 0.68 mg/dL Low 0.70-1.20 [facility] Comment on above: Performed By: #### L 501.5200, L501.2300, L3100.5000, L500.4050, L100.0100 ####[facility] [address] [place], [address] ECRCL 142.15 ml/min Normal 50-250 [facility] Comment on above: Performed By: #### L 501.5200, L501.2300, L3100.5000, L500.4050, L100.0100 ####[facility] [address] [place], [address] GAP 11 Normal 5-15 [facility] Comment on above: Performed By: #### L 501.5200, L501.2300, L3100.5000, L500.4050, L100.0100 ####[facility] [address] [place], [address] GFR/1.73 sq M.predicted among non-blacks MDRD (S/P/Bld) [Vol rate/Area] 111 mL/min/{1.73_m2} Normal >60 [facility] Comment on above: Result Comment: mL/m in/1.73m2 CKD-EPI Creatinine Equation (2020) Performed By: #### L 501.5200, L501.2300, L3100.5000, L500.4050, L100.0100 ####[facility] [address] [place], [address] Globulin (S) [Mass/Vol] 2.9 g/dL Normal 2.2-4.2 [facility] Comment on above: Performed By: #### L 501.5200, L501.2300, L3100.5000, L500.4050, L100.0100 ####[facility] [address] [place], [address] Glucose [Mass/Vol] 96 mg/dL Normal 70-99 [facility] Comment on above: Performed By: #### L 501.5200, L501.2300, L3100.5000, L500.4050, L100.0100 ####[facility] [address] [place], [address] Potassium [Moles/Vol] 3.6 mmol/L Normal 3.3-5.1 [facility] Comment on above: Performed By: #### L 501.5200, L501.2300, L3100.5000, L500.4050, L100.0100 ####[facility] [address] [place], [address] Sodium [Moles/Vol] 139 mmol/L Normal 133-145 [facility] Comment on above: Performed By: #### L 501.5200, L501.2300, L3100.5000, L500.4050, L100.0100 ####[facility] [address] [place], [address] T PROT 6.9 g/dL Normal 5.9-8.4 [facility] Comment on above: Performed By: #### L 501.5200, L501.2300, L3100.5000, L500.4050, L100.0100 ####[facility] [address] [place], [address] Urea nitrogen [Mass/Vol] 23 mg/dL High 4-19 [facility] Comment on above: Performed By: #### L 501.5200, L501.2300, L3100.5000, L500.4050, L100.0100 ####[facility] [address] [place], [address] Eosinophil percentageOrdered By: Coco Lima on 12-02-2024 Eosinophils/100 WBC (Bld) 1.0 % 0-5 [facility] Erythrocyte distribution wid th ratioOrdered By: [facility] Janie on 12-02-2024 Erythrocyte distribution width (RBC) [Ratio] 14.9 % High 11.6-14.6 [facility] Erythrocyte distribution wid th standard deviationOrdered By: [facility] Janie on 12-02-2024 Erythrocyte distribution width (RBC) [Entitic vol] 47.6 fL High 35.1-43.9 [facility] Erythrocyte distribution width (RBC) [Ratio] 47.6 fl High 35.1-43.9 [facility] Estimation of creatinine vishal aranceOrdered By: Coco Lima on 12-02-2024 Estimated Creatinine Clearance Calc 142.15 ml/min 50-250 [facility] GFR/1.73 sq M.predicted yomi g non-blacks MDRD (S/P/Bld) [Vol rate/Area]Ordered By: Coco Lima on 12-02-2024 Estimated GFR (MDRD) Non-Af Amer 111 >60 [facility] Comment on above: mL/min/1.73m2 CKD-EP I Creatinine Equation (2020) Glomerular filtration rate ( GFR) estimation/1.73 sq m using serum, plasma, or whole bOrdered By: Coco Lima on 12-02-2024 GFR/1.73 sq M.predicted among non-blacks MDRD (S/P/Bld) [Vol rate/Area] 111 mL/min/{1.73_m2} >60 [facility] Comment on above: mL/min/1.73m2 CKD-EP I Creatinine Equation (2020) Hematocrit Auto (Bld) [Volum e fraction]Ordered By: Coco Lima on 12-02-2024 Hematocrit (Bld) [Volume fraction] 36.6 % Low 37-47 [facility] Hemoglobin measurementOrdere d By: Coco Lima on 12-02-2024 Hemoglobin (Bld) [Mass/Vol] 11.9 g/dL Low 12.0-15.0 [facility] Immature granulocytes/100 WB C Auto (Bld)Or[facility]: [facility] on 12-02-2024 Immature granulocytes/100 WBC (Bld) 0.300 % 0.0-0.9 [facility] Comment on above: IG% - Immature Granu locytes (promyelocytes, myelocytes and metamyelocytes) > 1% indicates that a LEFT SHIFT is Present. Laboratory - Chemistry and C hemistry - challengeOrdered By: Coco Lima on 12-02-2024 AST [Catalytic activity/Vol] 24 U/L <32 [facility] Lymphocytes Auto (Unsp spec) [#/Vol]Ordered By: [facility] on 12-02-2024 Lymphocytes (Bld) [#/Vol] 1.19 10*3/uL 0.83-4.51 [facility] Lymphocytes/100 WBC Auto (Un sp spec)Ordered By: [facility] on 12-02-2024 Lymphocytes/100 WBC (Bld) 17.3 % Low 19-41 [facility] MCV (mean corpuscular volume ) determinationOrdered By: Coco Lima on 12-02-2024 MCV (RBC) [Entitic vol] 87.8 fL 81-99 [facility] Magnesiumon 12-02-2024 Magnesium [Mass/Vol] 2.1 mg/dL Normal 1.5-2.2 [facility] Comment on above: Performed By: #### L 501.5200, L501.2300, L3100.5000, L500.4050, L100.0100 ####[facility] [address] [place], [address] Magnesium (Unsp spec) [Mass/ Vol]Ordered By: [facility] Janie on 12-02-2024 Magnesium [Mass/Vol] 2.1 mg/dL 1.5-2.2 [facility] Magnesium measurement (mass/ volume)Ordered By: [facility] Janie on 12-02-2024 Magnesium (Unsp spec) [Mass/Vol] 2.1 mg/dL 1.5-2.2 [facility] Mean corpuscular hemoglobin (MCH) determinationOrdered By: [facility] Janie on 12-02-2024 MCH (RBC) [Entitic mass] 28.5 pg 27.0-32.0 [facility] Mean corpuscular hemoglobin concentration (MCHC) determinationOrdered By: [facility] on 12-02-2024 MCHC (RBC) [Mass/Vol] 32.5 g/dL 32-36 [facility] Mean platelet volume determi nationOrdered By: [facility] Janie on 12-02-2024 Platelet mean volume (Bld) [Entitic vol] 10.6 fL 6.2-12.0 [facility] Monocyte percentageOrdered B y: [facility] Janie on 12-02-2024 Monocytes/100 WBC (Bld) 8.7 % 0-10 [facility] Neutrophil percentageOrdered By: [facility] Janie on 12-02-2024 Neutrophils/100 WBC (Bld) 72.4 % High 47-70 [facility] Nucleated red blood cell per centageOrdered By: [facility] Janie on 12-02-2024 Nucleated RBC/100 WBC (Bld) [Ratio] 0 % 0-5 [facility] Phosphoruson 12-02-2024 Phosphate [Mass/Vol] 3.5 mg/dL Normal 2.7-4.5 [facility] Comment on above: Performed By: #### L 501.5200, L501.2300, L3100.5000, L500.4050, L100.0100 ####[facility] [address] [place], [address] Platelet countOrdered By: Nguyễn Lima on 12-02-2024 Platelets (Bld) [#/Vol] 200 10*3/uL 150-450 [facility] Potassium (Unsp spec) [Mass/ Vol]Ordered By: Coco Lima on 12-02-2024 Potassium [Moles/Vol] 3.6 mmol/L 3.3-5.1 [facility] Potassium measurement (mass/ volume)Ordered By: Coco Lima on 12-02-2024 Potassium (Unsp spec) [Mass/Vol] 3.6 mmol/L 3.3-5.1 [facility] RBC Auto (Bld) [#/Vol]Ordere d By: Coco Lima on 12-02-2024 RBC (Bld) [#/Vol] 4.17 10*6/uL Low 4.2-5.4 [facility] Serum creatinine measurement (mass/volume)Ordered By: Coco Lima on 12-02-2024 Creatinine [Mass/Vol] 0.68 mg/dL Low 0.70-1.20 [facility] Serum globulin measurementOr dered By: Coco Lima on 12-02-2024 Globulin (S) [Mass/Vol] 2.9 g/dL 2.2-4.2 [facility] Serum glucose measurement (m ass/volume)Ordered By: Coco Lima on 12-02-2024 Glucose [Mass/Vol] 96 mg/dL 70-99 [facility] Serum or plasma alanine pruitt otransferase (ALT) measurementOrdered By: Coco Lima on 12-02-2024 ALT [Catalytic activity/Vol] 35 U/L <35 [facility] Serum or plasma albumin guy urement (mass/volume)Ordered By: Coco Lima on 12-02-2024 Albumin [Mass/Vol] 3.9 g/dL 3.5-5.0 [facility] Serum or plasma albumin/glob ulin mass ratioOrdered By: Coco Lima on 12-02-2024 Albumin/Globulin [Mass ratio] 1.3 {ratio} 0.9-2.4 [facility] Serum or plasma alkaline latoya sphatase measurementOrdered By: Coco Janie on 12-02-2024 ALP [Catalytic activity/Vol] 99 U/L 35-104 [facility] Serum or plasma calcium guy urement (mass/volume)Ordered By: Coco Janie on 12-02-2024 Calcium [Mass/Vol] 9.1 mg/dL 7.6-11.0 [facility] Serum or plasma urea nitroge n measurement (mass/volume)Ordered By: Evariadne Lima on 12-02-2024 Urea nitrogen [Mass/Vol] 23 mg/dL High 4-19 [facility] Serum phosphorus measurement Ordered By: Evariadne Lima on 12-02-2024 Phosphorus Level 3.5 mg/dL 2.7-4.5 [facility] Sodium levelOrdered By: Ev ariadne Janie on 12-02-2024 Sodium [Moles/Vol] 139 mmol/L 133-145 [facility] Total proteinOrdered By: Get mckay Janie on 12-02-2024 Protein [Mass/Vol] 6.9 g/dL 5.9-8.4 [facility] White blood cell (WBC) count Ordered By: Coco Janie on 12-02-2024 WBC (Bld) [#/Vol] 6.9 10*3/uL 4.4-11.0 [facility] Orthopedic Visit Reporton Orthopedic Visit Report [facility] [address] [place] [address] OFFICE VISIT Date of Service: 10/19/24 MR#: [id number] Acct: [id number] Name: JESSICA ALARCON Rep #: [id number] : 1980 Provider: Dr. Pradeep fairchild MD Age/Sex: 44/F Location: [facility] [place] Status: Signed with Addenda ADDENDUM by Maine Nicole on 10/19/24 at 1336 Office Procedure Documentation entered by Maine Nicole 10/19/24 13:36: Ortho Injections Injections Yes Carpal Tunnel Injection Bilateral Is this a patient provided medication?: No Details: Obtained consent for injection. Under sterile conditions, injected the patients bilateral carpal tunnel with 1.0mL Bupivacaine and 2.0mL Kenalog in each hand. The patient tolerated the injection well without any noted complication. Patient should call our office if redness develops, pain worsens or if they have any concerns. Office Meds Kenalog 40 mg/mL suspension for injection Performing Provider: Pradeep Chandler MD Performing Location: [facility] Administered by: Pradeep Chandler MD on 10/19/24 13:35 Dose Route Admin Location Dispensed Lot Number Expiration Date NDC Man ufacturer 160 mg intra-articular Bilateral carpal tunnel 4 mL [id number] 01/14/26 0003- 0293-28 [employer] Date cc: * Signed Intake Vital Signs 10/14/24 14:43 10/19/24 13:04 Height 5 ft 6 in 5 ft 6 in Weight: 269 lb 2 oz 272 lb BMI 43.4 43.9 BP 118/82 H Blood Pressure Location Lt brachial Position Sitting Respiration 18 Pulse 93 Pulse Source Monitor Temp 98.5 F Pulse Oximetry (%) 96 Oxygen Delivery Method room air Intake Visit Reasons: BL HANDS Chief Complaint: bilateral hands Is patient in pain?: Yes (bilateral hands) Pain scale (1-10): 7 Allergies paclitaxel (From Taxol) Allergy (Severe, Verified 10/19/24 13:06) Anaphylaxis Medications ???Medication ???Instructions ???Recorded ???Confirmed ???Type MAGIC MOUTH WASH (BMX) 180 mL ml PO #180 mL 05/14/24 10/19/24 Hi story suspension albuterol sulfate 90 mcg/actuation 1 inh inhalation ONCE 05/14/24 0 10/19/24 History aerosol inhaler fluoxetine 20 mg tablet 20 mg PO DAILY 05/14/24 10/19/24 H istory loratadine 10 mg tablet (Claritin) 10 mg PO DAILY 05/14/24 10/19/24 History dicyclomine 20 mg tablet 20 mg PO .QID PRN 06/04/24 5 History loperamide 2 mg capsule 2 mg PO Q6H PRN 06/04/24 10/19/24 History omeprazole 20 mg tablet,delayed 20 mg PO QDAY 06/04/24 10/19/24 Hi story release prochlorperazine maleate 10 mg 10 mg PO Q6H PRN nausea and 10/19/24 Rx tablet vomiting #30 tabs dexamethasone 4 mg tablet 8 mg (2 x 4 mg) PO .COMPLEX #12 10/19/24 Rx tabs lidocaine-prilocaine 2.5 %-2.5 % 1 applic topical ONCE PRN PORT 11/0910/19/24 Rx topical cream ACCESS 30 days #30 grams nystatin 100,000 unit/mL oral 5 ml PO Q6H PRN #473 mL 07/15/24 0 10/19/24 Rx suspension nystatin 100,000 unit/gram topical 1 applic topical BID #30 grams 1 09/20/23 10/19/24 Rx cream clonazepam 0.5 mg tablet 0.25 mg PO DAILY PRN 07/29/2412/08 History ondansetron 8 mg disintegrating 8 mg PO Q8H PRN nausea and 4 10/19/24 Rx tablet vomiting #30 tabs letrozole 2.5 mg tablet (Femara) 2.5 mg PO QDAY 30 days #30 tabs 10/19/24 Rx PFSH Medical History (Updated 10/19/24 @ 13:30 by Pradeep Chandler MD) Bilateral carpal tunnel syndrome Swelling of both lower extremities Cough Pleural effusion Candidiasis of breast UTI (urinary tract infection) Dysuria Oral candidiasis Diarrhea due to drug Encounter for chemotherapy management 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 carcinomatosis Ovarian cancer Acute superficial venous thrombosis of lower extremity Anxiety and depression Carcinoma of ovary, stage 3 Surgical History History of appendectomy History of colposcopy H/O LEEP History of hysterectomy Family History Aunt Breast cancer Cancer Father's side Aunt Breast cancer Great aunt Social History Smoking Status: Never smoker alcohol intake: current alcohol intake frequency: holidays/special occasions only substance use type: does not use HPI BL HANDS Details: This documentation accurately reflects the service provided and the decisions made by me, Dr. Pradeep Chandler MD 10/19/24 4495. Part of today???s visit was documented by [ ], acting as scribe. JESSICA ALARCON is a 44 year old F here today for bilateral hands. The patient was getting injections. This is a new patient co (more content not included)... Normal [facility] Oncology Visit Reporton 09-17 Oncology Visit Report [facility] [address] [place] [address] OFFICE VISIT Date of Service: 10/14/24 1442 MR#: [id number] Acct: [id number] Name: JESSICA ALARCON Rep #: [id number] : 1980 From: Coco Lima MD Age/Sex: 44/F Location: [facility] [place] Status: Signed HPI Subjective Date of Service 10/14/24 Chief Complaint Ovarian cancer on treatment History of Present Illness 43-year-old female who was diagnosed with Asherman's syndrome for several years and in 2023 experienced increasing abdominal and pelvic pain and a CT scan of the abdomen and pelvis revealed a pelvic mass and an elevated CA125 of 76. February 2024 she had genetic testing ([employer]) that showed no known pathogenic variants. 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 March 2024 next generation sequence, tissue: No potentially actionable pathogenic variants, tumor mutational burden was low (3.2M/MB) April 22, 2024 received 1 cycle of carboplatin Taxol but developed an anaphylactic reaction to Taxol. May 13, 2024 received the second cycle with carboplatin and Taxotere replace Taxol. This was complicated with excessive GI toxicity requiring hospitalization May 19-2023, she was neutropenic but not febrile. CA-125 05/11/24 446 04/20/24 181 03/25/24 76 June 04, 2024 transferred her care to [facility] and resumed carboplatin and Taxotere with maximum supportive care. August 05, 2024 left pleural thoracocentesis at [facility] 1100 cc negative for malignancy. August 26, 2024 recurrent left pleural effusion thoracocentesis: Negative for malignancy September 01, 2024 CT chest abdomen and pelvis: FINDINGS: CHEST A right-sided shannan catheter seen with the tip in the superior vena cava. Stable moderate-sized left pleural effusion with left basilar compressive atelectasis and/or infiltrate. Small amount of fluid is seen in the left major fissure. The right lung is clear. There is no demonstrated pleural abnormality. Normal heart and pericardium. Normal mediastinum. Normal hilar regions. Normal unenhanced pulmonary arteries. Normal aorta arch and descending thoracic aorta. Normal osseous structures. ABDOMEN There is decreased attenuation of the liver consistent with steatosis. Small amount of perihepatic fluid. Small amount of fluid in the : Gutters bilaterally. Normal gallbladder and extrahepatic biliary system. Normal spleen. Normal pancreas. Normal bilateral adrenal glands. Normal right kidney. Normal left kidney. Normal visualized stomach. Normal small intestine. There are scattered colonic diverticula consistent with diverticulosis. The appendix is visualized and appears normal. Normal abdominal aorta. Normal inferior vena cava. Normal retroperitoneum. Normal abdominal wall. Normal osseous structures. PELVIS Normal urinary bladder. Pelvic ascites. Status post hysterectomy. There is no pelvic lymphadenopathy or mass lesion. Normal visualized pelvic arteries. IMPRESSION: Ascites. Diffuse fatty infiltration of the liver. Moderate size left pleural effusion with left basilar atelectasis. Treatment summary and response: * March 2024 laparoscopic hysterectomy, BSO, omentectomy and staging. 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 carcinomatosis Ovarian cancer Acute superficial venous thrombosis of lower extremity Anxiety and depression Carcinoma of ovary, stage 3 Surgical History History of appendectomy History of colposcopy H/O LEEP History of hysterectomy Family History Aunt Breast cancer Cancer Father's side Aunt Breast cancer Great aunt Social History Smoking Status: Never smoker alcohol intake: current alcohol intake frequency: holidays/special occasions only substance use type: does not use ROS Constitutional Constitutional: Reports systems reviewed and no addt'l complaints, except as documented; Denies fatigue or fever(s) Eyes Eyes: Reports systems reviewed and no addt'l complaints, (more content not included)... Normal [facility] Cancer Antigen 125on 025 CA 125 295.0 U/mL High 0.0-38.1 [facility] Comment on above: Result Comment: [employer] Electrochemiluminescence Immunoassay (ECLIA) Values obtained with different assay methods or kits cannot be used interchangeably. Results cannot be interpreted as absolute evidence of the presence or absence of malignant disease. Performed at: [place] [id number] [employer]: Boo King PhD, Phone: [phone] Performed By: #### L 501.2300, L500.4050, L100.0100, L3100.5000, L501.5200 ####[facility] [address] [place], [address] CBC W/Diff, Automatedon 09-17 Absolute Lymph 1.37 X10 3/uL Normal 0.83-4.51 [facility] Comment on above: Performed By: #### L 501.2300, L500.4050, L100.0100, L3100.5000, L501.5200 ####[facility] [address] [place], [place], [id number] Absolute Neut 4.4 X10 3/uL Normal 2.0-7.7 [facility] Comment on above: Performed By: #### L 501.2300, L500.4050, L100.0100, L3100.5000, L501.5200 ####[facility] [address] [place], [address] Basophils/100 WBC (Bld) 0.3 % Normal 0-1 [facility] Comment on above: Performed By: #### L 501.2300, L500.4050, L100.0100, L3100.5000, L501.5200 ####[facility] [address] [place], [address] Eosinophils/100 WBC (Bld) 3.6 % Normal 0-5 [facility] Comment on above: Performed By: #### L 501.2300, L500.4050, L100.0100, L3100.5000, L501.5200 ####[facility] [address] [place], [address] Erythrocyte distribution width (RBC) [Ratio] 14.1 % Normal 11.6-14.6 [facility] Comment on above: Performed By: #### L 501.2300, L500.4050, L100.0100, L3100.5000, L501.5200 ####[facility] [address] [place], [address] Hematocrit (Bld) [Volume fraction] 35.0 % Low 37-47 [facility] Comment on above: Performed By: #### L 501.2300, L500.4050, L100.0100, L3100.5000, L501.5200 ####[facility] [address] [place], [address] Hemoglobin (Bld) [Mass/Vol] 11.2 g/dL Low 12.0-15.0 [facility] Comment on above: Performed By: #### L 501.2300, L500.4050, L100.0100, L3100.5000, L501.5200 ####[facility] [address] [place], [address] IG% 0.300 Normal 0.0-0.9 [facility] Comment on above: Result Comment: IG% - Immature Granulocytes (promyelocytes, myelocytes and metamyelocytes) > 1% indicates that a LEFT SHIFT is Present. Performed By: #### L 501.2300, L500.4050, L100.0100, L3100.5000, L501.5200 ####[facility] [address] [place], [address] Lymphocytes/100 WBC (Bld) 20.6 % Normal 19-41 [facility] Comment on above: Performed By: #### L 501.2300, L500.4050, L100.0100, L3100.5000, L501.5200 ####[facility] [address] [place], [address] MCH (RBC) [Entitic mass] 29.3 pg Normal 27.0-32.0 [facility] Comment on above: Performed By: #### L 501.2300, L500.4050, L100.0100, L3100.5000, L501.5200 ####[facility] [address] [place], [address] MCHC (RBC) [Mass/Vol] 32.0 g/dL Normal 32-36 [facility] Comment on above: Performed By: #### L 501.2300, L500.4050, L100.0100, L3100.5000, L501.5200 ####[facility] [address] [place], [address] MCV (RBC) [Entitic vol] 91.6 fL Normal 81-99 [facility] Comment on above: Performed By: #### L 501.2300, L500.4050, L100.0100, L3100.5000, L501.5200 ####[facility] [address] [place], [address] Monocytes/100 WBC (Bld) 9.3 % Normal 0-10 [facility] Comment on above: Performed By: #### L 501.2300, L500.4050, L100.0100, L3100.5000, L501.5200 ####[facility] [address] [place], [address] Neutrophils/100 WBC (Bld) 65.9 % Normal 47-70 [facility] Comment on above: Performed By: #### L 501.2300, L500.4050, L100.0100, L3100.5000, L501.5200 ####[facility] [address] [place], [address] Nucleated RBC (Bld) [#/Vol] 0 10*3/uL Normal 0-5 [facility] Comment on above: Performed By: #### L 501.2300, L500.4050, L100.0100, L3100.5000, L501.5200 ####[facility] [address] [place], [address] Platelet mean volume (Bld) [Entitic vol] 11.1 fL Normal 6.2-12.0 [facility] Comment on above: Performed By: #### L 501.2300, L500.4050, L100.0100, L3100.5000, L501.5200 ####[facility] [address] [place], [address] Platelets (Bld) [#/Vol] 200 10*3/uL Normal 150-450 [facility] Comment on above: Performed By: #### L 501.2300, L500.4050, L100.0100, L3100.5000, L501.5200 ####[facility] [address] [place], [address] RBC (Bld) [#/Vol] 3.82 10*6/uL Low 4.2-5.4 [facility] Comment on above: Performed By: #### L 501.2300, L500.4050, L100.0100, L3100.5000, L501.5200 ####[facility] [address] [place], [address] RDW SD 47.2 fl High 35.1-43.9 [facility] Comment on above: Performed By: #### L 501.2300, L500.4050, L100.0100, L3100.5000, L501.5200 ####[facility] [address] [place], [address] WBC (Bld) [#/Vol] 6.7 10*3/uL Normal 4.4-11.0 [facility] Comment on above: Performed By: #### L 501.2300, L500.4050, L100.0100, L3100.5000, L501.5200 ####[facility] [address] [place], [address] Comprehensive Metabolic [facility] 10-08-2024 Albumin [Mass/Vol] 3.4 g/dL Normal 3.2-5.0 [facility] Comment on above: Performed By: #### L 501.2300, L500.4050, L100.0100, L3100.5000, L501.5200 ####[facility] [address] [place], [address] Albumin/Globulin [Mass ratio] 1.0 {ratio} Normal 0.9-2.4 [facility] Comment on above: Performed By: #### L 501.2300, L500.4050, L100.0100, L3100.5000, L501.5200 ####[facility] [address] [place], [address] ALK P 88 U/L Normal 45-117 [facility] Comment on above: Performed By: #### L 501.2300, L500.4050, L100.0100, L3100.5000, L501.5200 ####[facility] [address] [place], [address] ALT [Catalytic activity/Vol] 63 U/L High 13-56 [facility] Comment on above: Performed By: #### L 501.2300, L500.4050, L100.0100, L3100.5000, L501.5200 ####[facility] [address] [place], [address] AST [Catalytic activity/Vol] 29 U/L Normal 15-37 [facility] Comment on above: Performed By: #### L 501.2300, L500.4050, L100.0100, L3100.5000, L501.5200 ####[facility] [address] [place], [address] Bilirubin [Mass/Vol] 0.30 mg/dL Normal 0.20-1.00 [facility] Comment on above: Result Comment: For patients on eltrombopag therapy, use of Dimension [place] TBIL is not recommended. Performed By: #### L 501.2300, L500.4050, L100.0100, L3100.5000, L501.5200 ####[facility] [address] [place], [address] BUN/CRE 25.1 RATIO High 10-20 [facility] Comment on above: Performed By: #### L 501.2300, L500.4050, L100.0100, L3100.5000, L501.5200 ####[facility] [address] [place], [address] CA,Total 8.9 mg/dL Normal 8.5-10.1 [facility] Comment on above: Performed By: #### L 501.2300, L500.4050, L100.0100, L3100.5000, L501.5200 ####[facility] [address] [place], [address] Chloride [Moles/Vol] 105 mmol/L Normal 98-107 [facility] Comment on above: Performed By: #### L 501.2300, L500.4050, L100.0100, L3100.5000, L501.5200 ####[facility] [address] [place], [address] CO2 [Moles/Vol] 26.0 mmol/L Normal 21.0-32.0 [facility] Comment on above: Performed By: #### L 501.2300, L500.4050, L100.0100, L3100.5000, L501.5200 ####[facility] [address] [place], [address] Creatinine [Mass/Vol] 0.80 mg/dL Normal 0.55-1.02 [facility] Comment on above: Result Comment: The validity of the calculated GFR GFRAA in patients over 70 years has not been determined. Clinical correlation is essential. Performed By: #### L 501.2300, L500.4050, L100.0100, L3100.5000, L501.5200 ####[facility] [address] [place], [address] ECRCL 122.96 ml/min Normal [facility] Comment on above: Performed By: #### L 501.2300, L500.4050, L100.0100, L3100.5000, L501.5200 ####[facility] [address] [place], [address] EST GFR - AA 101 mL/min Normal >60 [facility] Comment on above: Result Comment: Afri can Dutch GFR Calc Performed By: #### L 501.2300, L500.4050, L100.0100, L3100.5000, L501.5200 ####[facility] [address] [place], [address] GAP 7 Normal 5-15 [facility] Comment on above: Performed By: #### L 501.2300, L500.4050, L100.0100, L3100.5000, L501.5200 ####[facility] [address] [place], [address] GFR/1.73 sq M.predicted among non-blacks MDRD (S/P/Bld) [Vol rate/Area] 84 mL/min/{1.73_m2} Normal >60 [facility] Comment on above: Result Comment: Non- GFR Calc Performed By: #### L 501.2300, L500.4050, L100.0100, L3100.5000, L501.5200 ####[facility] [address] [place], [address] Globulin (S) [Mass/Vol] 3.5 g/dL Normal 2.2-4.2 [facility] Comment on above: Performed By: #### L 501.2300, L500.4050, L100.0100, L3100.5000, L501.5200 ####[facility] [address] [place], [address] Glucose [Mass/Vol] 141 mg/dL High 74-106 [facility] Comment on above: Result Comment: Fast ing Glucose result greater than or equal to 126 mg/dL suggests DIABETES MELLITUS per A.D.A. criteria. Performed By: #### L 501.2300, L500.4050, L100.0100, L3100.5000, L501.5200 ####[facility] [address] [place], [address] Potassium [Moles/Vol] 3.6 mmol/L Normal 3.5-5.1 [facility] Comment on above: Performed By: #### L 501.2300, L500.4050, L100.0100, L3100.5000, L501.5200 ####[facility] [address] [place], [address] Sodium [Moles/Vol] 138 mmol/L Normal 136-145 [facility] Comment on above: Performed By: #### L 501.2300, L500.4050, L100.0100, L3100.5000, L501.5200 ####[facility] [address] [place], [address] T PROT 6.9 g/dL Normal 6.4-8.2 [facility] Comment on above: Performed By: #### L 501.2300, L500.4050, L100.0100, L3100.5000, L501.5200 ####[facility] [address] [place], [address] Urea nitrogen [Mass/Vol] 20 mg/dL High 7-18 [facility] Comment on above: Performed By: #### L 501.2300, L500.4050, L100.0100, L3100.5000, L501.5200 ####[facility] [address] [place], [address] Estimated glomerular filtrat ion rate (GFR) AmericanOrdered By: Coco Lima on 10-08-2024 Estimated GFR (MDRD) Amer 101 mL/min >60 [facility] Comment on above: GFR Calc Magnesiumon 10-08-2024 Magnesium [Mass/Vol] 1.8 mg/dL Normal 1.6-2.6 [facility] Comment on above: Performed By: #### L 501.2300, L500.4050, L100.0100, L3100.5000, L501.5200 ####[facility] [address] [place], [address] Phosphoruson 10-08-2024 Phosphate [Mass/Vol] 4.6 mg/dL Normal 2.5-4.9 [facility] Comment on above: Performed By: #### L 501.2300, L500.4050, L100.0100, L3100.5000, L501.5200 ####[facility] [address] [place], [place], [address] Abdomen Limitedon 09-23-2024 Abdomen Limited [facility] [address] [place], [place] [address] Abdomen Limited MR#: [id number] Acct: [id number] Name: JESSICA ALARCON Rep #: [id number] : 1980 F 43 From: Efrain madrigal MD PCP: DIANNE Daniel Status: REG CLI Study: Abdomen Limited Date of Exam: 09/23/24 Exam# [id number] Ordering Dr: [place] [id number] STUDY: ABDOMINAL ULTRASOUND -ascites survey. REASON FOR VISIT: Female, 43 years old FLUID FROM PELVIS TECHNIQUE: Ultrasound evaluation of the 4 quadrants was performed with real-time and static valderrama-scale imaging. TECHNICAL QUALITY: Adequate. COMPARISON: None. FINDINGS: Ascites survey was performed. A small amount of free fluid is seen in the cul-de-sac. Not enough fluid for safe paracentesis. US/Abdomen Limited IMPRESSION: Not enough fluid for safe paracentesis. Electronically Signed: Efrain Lynn MD at 13:56 EST , CC: PEN TESTERBerhaneC Adan Garcia; Dr. Coco Lima MD Interior Block Wirer: Signed Normal [facility] Cancer Antigen 125on 12-19-2 024 CA 125 753.0 U/mL High 0.0-38.1 [facility] Comment on above: Result Comment: [facility] [employer] Electrochemiluminescence Immunoassay (ECLIA) Values obtained with different assay methods or kits cannot be used interchangeably. Results cannot be interpreted as absolute evidence of the presence or absence of malignant disease. Performed at: [address] [id number] [employer]: Boo King PhD, Phone: [phone] Performed By: #### L 500.4050, L100.0100 #### [facility] [address] [place], [address] Blood manual differential co mment interpretation (narrative result)Ordered By: Coco Lima on 09-02-2024 Manual differential comment Rohan (Bld) [Interp] SCANNED [facility] CBC W/Diff, Automatedon 08-16 Anisocytosis Ql (Bld) 2+ Normal [facility] Comment on above: Performed By: #### L 500.4050, L100.0100 #### [facility] [address] [place], [address] SMEAR COMMENT SCANNED Normal [facility] Comment on above: Performed By: #### L 500.4050, L100.0100 #### [facility] [address] [place], [address] Comprehensive Metabolic Prof ilon 09-02-2024 Albumin [Mass/Vol] 3.5 g/dL Normal 3.2-5.0 [facility] Comment on above: Performed By: #### L 500.4050, L100.0100 #### [facility] [address] [place], [address] Albumin/Globulin [Mass ratio] 1.0 {ratio} Normal 0.9-2.4 [facility] Comment on above: Performed By: #### L 500.4050, L100.0100 #### [facility] [address] [place], [address] ALK P 82 U/L Normal 45-117 [facility] Comment on above: Performed By: #### L 500.4050, L100.0100 #### [facility] [address] [place], [address] ALT [Catalytic activity/Vol] 33 U/L Normal 13-56 [facility] Comment on above: Performed By: #### L 500.4050, L100.0100 #### [facility] [address] [place], [address] AST [Catalytic activity/Vol] 24 U/L Normal 15-37 [facility] Comment on above: Performed By: #### L 500.4050, L100.0100 #### [facility] [address] [place], [address] Bilirubin [Mass/Vol] 0.50 mg/dL Normal 0.20-1.00 [facility] Comment on above: Result Comment: For patients on eltrombopag therapy, use of Dimension [place] TBIL is not recommended. Performed By: #### L 500.4050, L100.0100 #### [facility] [address] [place], [address] BUN/CRE 19.6 RATIO Normal 10-20 [facility] Comment on above: Performed By: #### L 500.4050, L100.0100 #### [facility] [address] [place], [address] CA,Total 9.4 mg/dL Normal 8.5-10.1 [facility] Comment on above: Performed By: #### L 500.4050, L100.0100 #### [facility] [address] [place], [address] Chloride [Moles/Vol] 108 mmol/L High 98-107 [facility] Comment on above: Performed By: #### L 500.4050, L100.0100 #### [facility] [address] [place], [address] CO2 [Moles/Vol] 26.0 mmol/L Normal 21.0-32.0 [facility] Comment on above: Performed By: #### L 500.4050, L100.0100 #### [facility] [address] [place], [address] Creatinine [Mass/Vol] 0.82 mg/dL Normal 0.55-1.02 [facility] Comment on above: Result Comment: The validity of the calculated GFR GFRAA in patients over 70 years has not been determined. Clinical correlation is essential. Performed By: #### L 500.4050, L100.0100 #### [facility] [address] [place], [address] ECRCL 119.96 ml/min Normal [facility] Comment on above: Performed By: #### L 500.4050, L100.0100 #### [facility] [address] [place], [address] EST GFR - AA 99 mL/min Normal >60 [facility] Comment on above: Result Comment: Afri can Dutch GFR Calc Performed By: #### L 500.4050, L100.0100 #### [facility] [address] [place], [address] GAP 4 Low 5-15 [facility] Comment on above: Performed By: #### L 500.4050, L100.0100 #### [facility] [address] [place], [address] GFR/1.73 sq M.predicted among non-blacks MDRD (S/P/Bld) [Vol rate/Area] 81 mL/min/{1.73_m2} Normal >60 [facility] Comment on above: Result Comment: Non- GFR Calc Performed By: #### L 500.4050, L100.0100 #### [facility] [address] [place], [address] Globulin (S) [Mass/Vol] 3.4 g/dL Normal 2.2-4.2 [facility] Comment on above: Performed By: #### L 500.4050, L100.0100 #### [facility] [address] [place], [address] Glucose [Mass/Vol] 178 mg/dL High 74-106 [facility] Comment on above: Result Comment: Fast ing Glucose result greater than or equal to 126 mg/dL suggests DIABETES MELLITUS per A.D.A. criteria. Performed By: #### L 500.4050, L100.0100 #### [facility] [address] [place], [address] Potassium [Moles/Vol] 4.0 mmol/L Normal 3.5-5.1 [facility] Comment on above: Performed By: #### L 500.4050, L100.0100 #### [facility] [address] [place], [address] Sodium [Moles/Vol] 138 mmol/L Normal 136-145 [facility] Comment on above: Performed By: #### L 500.4050, L100.0100 #### [facility] [address] [place], [address] T PROT 6.9 g/dL Normal 6.4-8.2 [facility] Comment on above: Performed By: #### L 500.4050, L100.0100 #### [facility] [address] [place], [address] Urea nitrogen [Mass/Vol] 16 mg/dL Normal 7-18 [facility] Comment on above: Performed By: #### L 500.4050, L100.0100 #### [facility] [address] [place], [address] Laboratory - Hematology and Cell countsOrdered By: Coco Lima on 09-02-2024 Anisocytosis Ql (Bld) 2+ [facility] Manual differential comment Rohan (Bld) [Interp]Ordered By: Coco Lima on 09-02-2024 Differential Comment SCANNED [facility] Oncology Visit Reporton 08-16 Oncology Visit Report [facility] [place] [facility] [place] [address] [address] OFFICE VISIT Date of Service: 09/02/24 0938 MR#: [id number] Acct: [id number] Name: JESSICA ALARCON Rep #: [id number] : 1980 From: Coco Lima MD Age/Sex: 43/F Location[place] [facility] [place] Status: Signed HPI Subjective Date of Service 09/02/24 Chief Complaint Ovarian cancer on treatment History of Present Illness 43-year-old female who was diagnosed with Asherman's syndrome for several years and in 2023 experienced increasing abdominal and pelvic pain and a CT scan of the abdomen and pelvis revealed a pelvic mass and an elevated CA125 of 76. February 2024 she had genetic testing ([employer]) that showed no known pathogenic variants. 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 March 2024 next generation sequence, tissue: No potentially actionable pathogenic variants, tumor mutational burden was low (3.2M/MB) April 22, 2024 received 1 cycle of carboplatin Taxol but developed an anaphylactic reaction to Taxol. May 13, 2024 received the second cycle with carboplatin and Taxotere replace Taxol. This was complicated with excessive GI toxicity requiring hospitalization May 19-2023, she was neutropenic but not febrile. CA-125 05/11/24 446 04/20/24 181 03/25/24 76 June 04, 2024 transferred her care to [place] [facility] and resumed carboplatin and Taxotere with maximum supportive care. August 05, 2024 left pleural thoracocentesis at [facility] 1100 cc negative for malignancy. August 26, 2024 recurrent left pleural effusion thoracocentesis: Negative for malignancy September 01, 2024 CT chest abdomen and pelvis: FINDINGS: CHEST A right-sided shannan catheter seen with the tip in the superior vena cava. Stable moderate-sized left pleural effusion with left basilar compressive atelectasis and/or infiltrate. Small amount of fluid is seen in the left major fissure. The right lung is clear. There is no demonstrated pleural abnormality. Normal heart and pericardium. Normal mediastinum. Normal hilar regions. Normal unenhanced pulmonary arteries. Normal aorta arch and descending thoracic aorta. Normal osseous structures. ABDOMEN There is decreased attenuation of the liver consistent with steatosis. Small amount of perihepatic fluid. Small amount of fluid in the : Gutters bilaterally. Normal gallbladder and extrahepatic biliary system. Normal spleen. Normal pancreas. Normal bilateral adrenal glands. Normal right kidney. Normal left kidney. Normal visualized stomach. Normal small intestine. There are scattered colonic diverticula consistent with diverticulosis. The appendix is visualized and appears normal. Normal abdominal aorta. Normal inferior vena cava. Normal retroperitoneum. Normal abdominal wall. Normal osseous structures. PELVIS Normal urinary bladder. Pelvic ascites. Status post hysterectomy. There is no pelvic lymphadenopathy or mass lesion. Normal visualized pelvic arteries. IMPRESSION: Ascites. Diffuse fatty infiltration of the liver. Moderate size left pleural effusion with left basilar atelectasis. Treatment summary and response: * March 2024 laparoscopic hysterectomy, BSO, omentectomy and staging. * April - July 2024???[place] taxane systemic chemotherapy (initially Taxol then Taxotere; total 6 cycles) * August 2024: Femara maintenance Interval History Was hospitalized in [facility] a week earlier with presumed pneumonia complicated with a pleural effusion, improving after course of antibiotics and drainage of pleural fluid. 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 Normal [facility] CT Chest, Abd, Pel w/Contras ton 09-01-2024 CT Chest, Abd, Pel w/Contrast [facility] Services [address] [place], [place] [address] CT Chest, Abd, Pel w/Contrast MR#: [id number] Acct: [id number] Name: JESSICA ALARCON Rep #: [id number] : 1980 F 43 From: Efrain madrigal MD PCP: DIANNE Daniel Status: REG [facility] Study: CT Chest, Abd, Pel w/Contrast Date of Exam: Exam# [id number] Ordering Dr: [place] [id number] STUDY: CT CHEST, ABDOMEN T PELVIS WITH CONTRAST REASON FOR EXAM: Female, 43 years old. F/U METS OVARIAN CA COMPARE TO WALES 2023 RADIATION DOSAGE (If Supplied By Facility): CTDIvol = ( 23.69 ) mGy, DLP = ( 2390.59 ) mGycm TECHNIQUE: Transaxial imaging was performed following intravenous administration of Oral and amp; IV Readi-CAT and amp; 100mL Isovue-300. Multiplanar coronal and sagittal images were reformatted. Individualized dose optimization techniques were used for this CT. COMPARISON: Comparison is made with prior study dated August 03, 2024. FINDINGS: CHEST A right-sided shannan catheter seen with the tip in the superior vena cava. Stable moderate-sized left pleural effusion with left basilar compressive atelectasis and/or infiltrate. Small amount of fluid is seen in the left major fissure. The right lung is clear. There is no demonstrated pleural abnormality. Normal heart and pericardium. Normal mediastinum. Normal hilar regions. Normal unenhanced pulmonary arteries. Normal aorta arch and descending thoracic aorta. Normal osseous structures. ABDOMEN There is decreased attenuation of the liver consistent with steatosis. Small amount of perihepatic fluid. Small amount of fluid in the : Gutters bilaterally. Normal gallbladder and extrahepatic biliary system. Normal spleen. Normal pancreas. Normal bilateral adrenal glands. Normal right kidney. Normal left kidney. Normal visualized stomach. Normal small intestine. There are scattered colonic diverticula consistent with diverticulosis. The appendix is visualized and appears normal. Normal abdominal aorta. Normal inferior vena cava. Normal retroperitoneum. Normal abdominal wall. Normal osseous structures. PELVIS Normal urinary bladder. Pelvic ascites. Status post hysterectomy. There is no pelvic lymphadenopathy or mass lesion. Normal visualized pelvic arteries. CT/CT Chest, Abd, Pel w/Contrast IMPRESSION: Ascites. Diffuse fatty infiltration of the liver. Moderate size left pleural effusion with left basilar atelectasis. Electronically Signed: Efrain Lynn MD at 14:53 EST Reading Location ID and State: [address] [place] [address] , Service support , CC: DIANNE Garcia; Dr. Coco Lima MD Interior Block Wirer: Signed Normal [facility] Culture, Anaerobic Any Sourc [place] 09-01-2024 CUAN N N No growth in 5 days. Normal [facility] Comment on above: Performed By: #### M 100, M100.4001, M100.2900 ####[facility] [address] [place], [place], [address] Body Fluid Culton 08-27-2024 BFC N N Culture exhibits no growth. Normal [facility] Comment on above: Performed By: #### M 100, M100.4001, M100.2900 ####[facility] [address] [place], [place], [address] Bacteria identified Anaer cx Nom (Unsp spec)Ordered By: Ramona Luke on 08-26-2024 Anaerobic Culture No growth in 5 days. [facility] Body fluid cultureOrdered By : Ramona Luke on 08-26-2024 Body Fluid Culture Culture exhibits no growth. [facility] Chest Insp/Exp 2 Viewon 08-16 Chest Insp/Exp 2 View [facility] [address], [place] [address] Chest Insp/Exp 2 View MR#: [id number] Acct: [id number] Name: JESSICA ALARCON Rep #: [id number] : 1980 F 43 From: Efrain madrigal MD PCP: DIANNE Daniel Status: REG CLI Study: Chest Insp/Exp 2 View Date of Exam: 08/26/24 Exam# [id number] Ordering Dr: [place] [id number] STUDY: X-RAY CHEST REASON FOR EXAM: Female, 43 years old. Post thoracentesis TECHNIQUE: AP and inspiration expiration views. COMPARISON: Comparison is made with prior study dated August 25, 2024. FINDINGS: The patient is status post left thoracentesis. No evidence of pneumothorax. Residual left pleural-parenchymal changes seen. RAD/Chest Insp/Exp 2 View IMPRESSION: Status post left thoracentesis. No evidence of pneumothorax. Residual pleural-parenchymal changes are seen at the left lung base. Electronically Signed: Efrain Lynn MD at 13:58 EST , CC: DIANNE Luke; PEN TESTER-C Adan Radha Interior Block Wirer: Signed Normal [facility] ER (initial)on 08-26-2024 ER (initial) --- Patient Age/Sex Location Account Attending Physician EJSSICA ALARCON 43/F [id number] DIANNE Calzada Specimen: [id number] Received: 08/28/24 Status: SCOTT Luna Num: [id number] Spec Type: IMMUNO Subm Dr: IDANNE [facility] [place] [address] SPECIMEN INFORMATION: Tissue Source: Thoracentesis fluid Clinical Info: Pleural effusion Specimen Number: [id number] CPT code: 17717,13036m23 METHODOLOGY: Deparaffinized sections of prefer/formalin-fixed tissue or PAP/DQ stained slides are incubated with monoclonal/polyclonal antibodies/oligonucleot roro probes. Localization is made via biotin free immunoperoxidase method. Appropriate controls are performed and reacted as expected. Results on target cell population are indicated in the following table: RESULTS: ANTIBODY / CLONE RESULT ER (6F11) negative KS (1E2) negative AE1-3 (AE1/AE3/PCK26) positive * CK7 (OV-TL12/30) positive * CK8 (16xjvhG59) positive * CK20 (KS20.8) negative Vimentin (V9) negative * CD68 (KP-1) negative TTF-1 (8G7G3/1) negative Napsin A (Rabbit Polyclonal) negative HepPar (OCh1E5) negative RCC (PN-15) negative CALRET (polyclonal) negative * CEA (11-7/TF-3HB-1) negative, CA125 (OC125) positive(favor non-specific staining) * Positive in mesothelial cells These tests were developed and their performance characteristics determined by [facility]. They may not have been cleared or approved by the U.S. Food and Drug Administration. The FDA has determined that such clearance or approval is not necessary. The above immunohistochemical/paresh Eleazar markers are ordered and reviewed by the Pathologist. Patient Age/Sex Location Account Attending Physician JESSICA ALARCON 43/F [id number] DIANNE [facility] INTERPRETATION: Thoracentesis fluid for cytology (cytospins and cellblock): Negative for malignant cells. See comment. Comment: Rare, atypical cells noted. Case has been reviewed in consultation with Dr. Oliveira who concurs with the above diagnosis. IDC:NAKIA Todd 09/01/2024 Signed (signature on file) Dr. Romulo Ricardo MD 09/02/24 1232 Normal [facility] Comment on above: Performed By: #### P ER ####[facility] [address] [place], [place], [address] Gram Stainon 08-26-2024 GS N N Centrifuged Specimen? Culture performed on centrifuged specimen Gram Stain 3+ Red Blood Cells 1+ White Blood Cells No organisms seen Normal [facility] Comment on above: Performed By: #### M 100.2000, M100.4001, M100.2900 ####[facility] [address] [place], [address] Gram stainOrdered By: Cuong Luke on 08-26-2024 Microscopic observation Gram stain Nom (Unsp spec) [facility] Operative Reporton 4 Operative Report [facility] Medical Records Department [address] [place] [address] Operative Report 08/26/24 1348 MR#: [id number] Acct: [id number] Name: JESSICA ALARCON Rep #: [id number] : 1980 43 From: Ramona Luke NP PEN TESTER-C PCP: DIANNE Daniel Status:REG CLI Location: US Problems Associated Problem List Diagnoses (1) Pleural effusion: Procedures Radiology Radiology US Procedures: 90251 Thoracentesis Operative Report (Standard) Operative Information Date of Procedure: 08/26/24 Pre-Operative Diagnosis: Pleural effusion, left Post-Operative Diagnosis: Pleural effusion, left Surgery/Procedure Performed: Ultrasound-guided thoracentesis of the left lung front office manager: No Type of Anesthesia: Local Procedure Start Time: 13:35 Procedure Stop Time: 13:45 Select all DRAINS/GRAFTS/IMPLANTS that apply: None Estimated Blood Loss: 0 Specimen collected: Yes Description of specimen(s) removed: 100 cc lopez drainage sent to lab Description of surgery: PROCEDURE: Ultrasound Guided Thoracentesis ORDERING PROVIDER: Ellen Dowling CNP INDICATION: Female, 43 years old. Left pleural effusion. PROVIDER: Ramona Luke CNP PROCEDURE: The risks, benefits, and alternatives to the procedure were explained to the patient. The specific risks of bleeding, infection, and pneumothorax requiring chest tube insertion were discussed and accepted. Written informed consent was obtained. The patient was placed in the sitting, upright position. Ultrasonographic evaluation of the bilateral lower pleural spaces was carried out. An adequate pocket was identified in the left lower lobe. The overlying skin was prepped with chlorhexidine and draped in sterile fashion. 2 % lidocaine was administered subcutaneously for local anesthesia. Under ultrasound guidance, a 5- [place] thoracentesis needle/catheter system was advanced into the left posterior lower pleural fluid collection. 970 ml of lopez colored fluid was drained. The catheter was removed, and a sterile dressing was applied. The patient tolerated the procedure well. A chest x-ray was ordered. ___ IMPRESSION: Successful ultrasound guided thoracentesis of left pleural effusion. Surgical Findings: Culture and sensitivity test added Complications Complications: No 08/26/24 7337 Cosigner Signature (if applicable): CC: DIANNE Luke; DIANNE Garcia; DIANNE Dowling Signed Normal [facility] Special Stain Group IIon Special Stain Group II ------ Patient Age/Sex Location Account Attending Physician JESSICA ALARCON 43/F [id number] DIANNE [facility] Specimen: [id number] Received: 08/26/24 Status: SCOTT Luna Num: [id number] Spec Type: Fluid Subm Dr: DIANNE [facility] HEADER OPERATION: Ultrasound guided thoracentesis PRE-OP DIAGNOSIS: Pleural effusion - left TISSUE SUBMITTED: Thoracentesis fluid for cytology DIAGNOSIS CYTOLOGY Thoracentesis fluid for cytology (cytospins): Negative for malignant cells. See comment. SJ.mr 08/28/2024 COMMENT Immunohistochemistry ([id number]) supports the above diagnosis. Rare atypical cells noted. This case has been reviewed in consultation with Dr. Oliveira who concurs with the above diagnosis. CYTOLOGY STUDY Slides are reviewed. CYTOLOGY GROSS Received is 100 ml of pink-cloudy fluid labeled with the patient's name and and designated per the requisition as Thoracentesis fluid. Submitted for cytology preparation including cell block. Mr 08/27/2024 TC:5 CPT: 59502,57820 Signed (signature on file) Dr. Romulo Ricardo MD 09/01/24 1356 Normal [facility] Comment on above: Performed By: #### L 500.4050, L100.0100 #### [facility] [address] [place], [address] Activated partial thrombopla stin time (aPTT) in platelet poor plasma by coagulation aOrdered By: Ellen Dowling on 08-25-2024 aPTT Coag (PPP) [Time] 24.1 s 24.1-36.2 [facility] CBC W/Diff, Automatedon 08-16 Anisocytosis Ql (Bld) 2+ Normal [facility] Comment on above: Performed By: #### L 100.0100, L500.4050 ####[facility] [address] [facility] [place], [address] Chest PA and Lateralon 08-25 Chest PA and Lateral [facility] [address] [place], [place] [address] Chest PA and Lateral MR#: [id number] Acct: [id number] Name: JESSICA ALARCON Rep #: [id number] : 1980 F 43 From: Ulisses Garces MD PCP: DIANNE Daniel Status: REG CLI Study: Chest PA and Lateral Date of Exam: 08/25/24 Exam# [id number] Ordering Dr: [place] [id number] INDICATION: left sided pleural effusion EXAMINATION/TECHNIQUE: X-RAY - XR Chest 2 Views COMPARISON: None. FINDINGS: LINES/DEVICES: Right-sided port. LUNGS: Moderate left-sided pleural effusion with possible lower lobe consolidation. Right lung clear. MEDIASTINUM AND CARDIOVASCULAR STRUCTURES: Cardiac silhouette within normal limits. BONES AND SOFT TISSUES: No acute findings. Scoliosis. RAD/Chest PA and Lateral IMPRESSION: Left lower lobe pleural effusion and/or consolidation. Electronically Signed: Ulisses Garces MD at 16:53 EST Reading Location ID and State: [facility] / [place] Tel , Service support , CC: DIANNE Garcia; DIANNE Dowling Interior Block Wirer: Signed Normal [facility] Comprehensive Metabolic Prof ilon 08-25-2024 Albumin [Mass/Vol] 3.3 g/dL Normal 3.2-5.0 [facility] Comment on above: Performed By: #### L 500.4050, L100.0100 #### [facility] [address] [place], [place], [address] Albumin/Globulin [Mass ratio] 1.1 {ratio} Normal 0.9-2.4 [facility] Comment on above: Performed By: #### L 500.4050, L100.0100 #### [facility] [address] [place], [address] ALK P 86 U/L Normal 45-117 [facility] Comment on above: Performed By: #### L 500.4050, L100.0100 #### [facility] [address] [place], [address] ALT [Catalytic activity/Vol] 28 U/L Normal 13-56 [facility] Comment on above: Performed By: #### L 500.4050, L100.0100 #### [facility] [address] [place], [address] AST [Catalytic activity/Vol] 21 U/L Normal 15-37 [facility] Comment on above: Performed By: #### L 500.4050, L100.0100 #### [facility] [address] [place], [address] Bilirubin [Mass/Vol] 0.40 mg/dL Normal 0.20-1.00 [facility] Comment on above: Result Comment: For patients on eltrombopag therapy, use of Dimension [place] TBIL is not recommended. Performed By: #### L 500.4050, L100.0100 #### [facility] [address] [place], [address] BUN/CRE 27.3 RATIO High 10-20 [facility] Comment on above: Performed By: #### L 500.4050, L100.0100 #### [facility] [address] [place], [address] CA,Total 9.0 mg/dL Normal 8.5-10.1 [facility] Comment on above: Performed By: #### L 500.4050, L100.0100 #### [facility] [address] [place], [address] Chloride [Moles/Vol] 112 mmol/L High 98-107 [facility] Comment on above: Performed By: #### L 500.4050, L100.0100 #### [facility] [address] [place], [address] CO2 [Moles/Vol] 25.0 mmol/L Normal 21.0-32.0 [facility] Comment on above: Performed By: #### L 500.4050, L100.0100 #### [facility] [address] [place], [address] Creatinine [Mass/Vol] 0.70 mg/dL Normal 0.55-1.02 [facility] Comment on above: Result Comment: The validity of the calculated GFR GFRAA in patients over 70 years has not been determined. Clinical correlation is essential. Performed By: #### L 500.4050, L100.0100 #### [facility] [address] [place], [address] ECRCL 141.27 ml/min Normal [facility] Comment on above: Performed By: #### L 500.4050, L100.0100 #### [facility] [address] [place], [address] EST GFR - AA 119 mL/min Normal >60 [facility] Comment on above: Result Comment: Afri can Dutch GFR Calc Performed By: #### L 500.4050, L100.0100 #### [facility] [address] [place], [address] GAP 5 Normal 5-15 [facility] Comment on above: Performed By: #### L 500.4050, L100.0100 #### [facility] [address] [place], [address] GFR/1.73 sq M.predicted among non-blacks MDRD (S/P/Bld) [Vol rate/Area] 98 mL/min/{1.73_m2} Normal >60 [facility] Comment on above: Result Comment: Non- GFR Calc Performed By: #### L 500.4050, L100.0100 #### [facility] [address] [place], [address] Globulin (S) [Mass/Vol] 3.0 g/dL Normal 2.2-4.2 [facility] Comment on above: Performed By: #### L 500.4050, L100.0100 #### [facility] [address] [place], [address] Glucose [Mass/Vol] 123 mg/dL High 74-106 [facility] Comment on above: Result Comment: Fast ing Glucose result from 100 to 125 mg/dL suggests IMPAIRED HOMEOSTASIS per A.D.A. criteria. Performed By: #### L 500.4050, L100.0100 #### [facility] [address] [place], [address] Potassium [Moles/Vol] 3.9 mmol/L Normal 3.5-5.1 [facility] Comment on above: Performed By: #### L 500.4050, L100.0100 #### [facility] [address] [place], [address] Sodium [Moles/Vol] 142 mmol/L Normal 136-145 [facility] Comment on above: Performed By: #### L 500.4050, L100.0100 #### [facility] [address] [place], [address] T PROT 6.3 g/dL Low 6.4-8.2 [facility] Comment on above: Performed By: #### L 500.4050, L100.0100 #### [facility] [address] [place], [address] Urea nitrogen [Mass/Vol] 19 mg/dL High 7-18 [facility] Comment on above: Performed By: #### L 500.4050, L100.0100 #### [facility] [address] [place], [address] International normalized rat io (INR) calculationOrdered By: Ellen Dowling on 08-25-2024 INR Coag (Bld) [Relative time] 1.1 {INR} [facility] Oncology Visit Reporton 08-16 Oncology Visit Report [facility] [place] [facility] [address] [place] [address] OFFICE VISIT Date of Service: 08/25/24 1448 MR#: [id number] Acct: [id number] Name: JESSICA ALARCON Rep #: [id number] : 1980 From: Ellen Dowling NP PEN TESTER -C Age/Sex: 43/F Location[place] [facility] Status: Signed HPI Subjective Date of Service 08/25/24 Chief Complaint Acute visit- SOB History of Present Illness 43-year-old female who was diagnosed with Asherman's syndrome for several years and in 2023 experienced increasing abdominal and pelvic pain and a CT scan of the abdomen and pelvis revealed a pelvic mass and an elevated CA125 of 76. February 2024 she had genetic testing ([employer]) that showed no known pathogenic variants. 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 March 2024 next generation sequence, tissue: No potentially actionable pathogenic variants, tumor mutational burden was low (3.2M/MB) April 22, 2024 received 1 cycle of carboplatin Taxol but developed an anaphylactic reaction to Taxol. May 13, 2024 received the second cycle with carboplatin and Taxotere replace Taxol. This was complicated with excessive GI toxicity requiring hospitalization May 19-2023, she was neutropenic but not febrile. CA-125 05/11/24 446 04/20/24 181 03/25/24 76 June 04, 2024 transferred her care to [place] [facility] and resumed carboplatin and Taxotere with maximum supportive care. Treatment summary and response: * March 2024 laparoscopic hysterectomy, BSO, omentectomy and staging. * April 2024???[place] taxane systemic chemotherapy (initially Taxol then Taxotere) Care complicated by pneumonia with pleural effusion requiring hospitalization at [facility] 08/03/24-08/06/24. Underwent thoracentesis on 08/05/24 (cytology report not availab le, per patient self report negative for malignancy, showed exudative effusion). Interval History The patient is presenting to clinic accompanied by for an acute visit at her request with c/o cough and SOB. Completed Omnicef 08/15/24. Cough is productive, describes sputum thick, colorless sputum. Laying supine is avoided. SOB brought upon by only minimal activity. Underwent a CXR at [facility] on 08/20/24 as ordered by her pcp which showed left sided pleural effusion. She was referred to pulmonary medicine. C/o BLE edema also. Symmetrical, began after last docetaxel infusion. No calf pain. Fatigue mild to moderate, able to perform instrumental ADLs. Appetite good, PO fluid intake describes as adeqate. . No nausea. Experienced on day 3 4 some abd cramping, 2-3 loose BMs on those days. Resolved without intervention. 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 carcinomatosis Ovarian cancer Acute superficial venous thrombosis of lower extremity Anxiety and depression Carcinoma of ovary, stage 3 Surgical History History of appendectomy History of colposcopy H/O LEEP History of hysterectomy Family History Aunt Breast cancer Cancer Father's side Aunt Breast cancer Great aunt Social History Smoking Status: Never smoker alcohol intake: current alcohol intake frequency: holidays/special occasions only substance use type: does not use ROS ROS Narrative Negative except as documented in the interval HPI Intake Vital Signs 08/11/24 10:25 08/25/24 14:49 08/25/24 14:53 Height 5 ft 6 in 5 ft 6 in 5 ft 6 in Weight: 272 lb 2 oz 275 lb BMI 43.9 44.4 BP 117/82 H 114/81 H Blood Pressure Location Lt brachial Lt brachial Position Sitting Sitting Respiration 16 16 Pulse 97 107 H Pulse Source Monitor Monitor Temp 97.5 F L 97.4 F L Temperature Source Temporal Artery Temporal Artery Pulse Oximetry (%) 94 97 Oxygen Delivery Method room air room air Intake Is patient in pain?: Yes (left side pain ) Allergies paclitaxel (From Taxol) Allergy (Severe, Verified 08/25/24 14:51) Anaphylaxis Medications ???Medication ???Instructions ???Recorded ???Confirmed ???Type oxycodone-acetaminophen 5 mg-325 1 - 2 tab (1 - 2 x 5-325 mg) PO 04/15/14 08/25/24 Rx mg tablet Q4H PRN PRN Moderate Pain #20 TABLETS ANTOINETTE (more content not included)... Normal [facility] Partial Thromboplast Timeon 08-25-2024 aPTT Coag (Bld) [Time] 24.1 s Normal 24.1-36.2 [facility] Comment on above: Performed By: #### L 500.4050, L100.0100 #### [facility] [address] [place], [address] Prothrombin Time w/INRon INR Coag (PPP) [Relative time] 1.1 {INR} Normal [facility] Comment on above: Performed By: #### L 500.4050, L100.0100 #### [facility] [address] [place], [address] PT Coag (PPP) [Time] 13.9 s Normal 11.7-14.9 [facility] Comment on above: Performed By: #### L 500.4050, L100.0100 #### [facility] [address] [place], [address] Prothrombin timeOrdered By: Ellen Dowling on 08-25-2024 PT Coag (PPP) [Time] 13.9 s 11.7-14.9 [facility] aPTT Coag (PPP) [Time]Ordere d By: Ellen Nitesh on 08-25-2024 aPTT Coag (Bld) [Time] 24.1 s 24.1-36.2 [facility] CHEST 2 VIEWSon 08-20-2024 CHEST 2 VIEWS [place] [address] Patient: JESSICA ALARCON Phone#: : 1980 Age: 43 Gender: F Pt. Type: Out Account: [id number] Location: 052 Ordering: ADAN GARCIA Exam Date: 08/20/2024/9:51 Family Phys: Charge Code: 804146 Physician: [place] Order #: [id number] Dose#: PROCEDURE: X-RAY CHEST 2 VIEWS COMPARISON: None. INDICATIONS: Persistent Cough. FINDINGS: LUNGS: Opacification consistent with pleural effusion at the left lung base obscuring the left hemidiaphragm and portions of the cardiac silhouette. There is associated compressive atelectasis. Cannot exclude superimposed infiltrate. Right lung is clear. VASCULATURE: Normal. Unremarkable pulmonary vasculature. CARDIAC: Cardiac silhouette is mildly enlarged. MEDIASTINUM: Normal. No visible mass or adenopathy. PLEURA: Small to moderate size left pleural effusion obscuring the left hemidiaphragm and portions of the cardiac silhouette BONES: There is mild scoliosis of the thoracic spine. OTHER: Right chest wall medication port. CONCLUSION: 1. Left small to moderate pleural effusion and associated compressive atelectasis. Cannot exclude superimposed infiltrate. 2. Mild enlarged cardiac silhouette. Dictated by: Nely Yousif MD on 08/20/2024 at 16:00 Approved by: Nely Yousif MD on 08/20/2024 at 16:11 Normal [facility] Antigen 125on 024 CA 125 483.0 U/mL High 0.0-38.1 [facility] Comment on above: Order Comment: EMILY Singh ADD ON TO BLOOD IN LAB. THANK YOU!! Result Comment: [facility] Electrochemiluminescence Immunoassay (ECLIA) Values obtained with different assay methods or kits cannot be used interchangeably. Results cannot be interpreted as absolute evidence of the presence or absence of malignant disease. Performed at: [address] [id number] [employer]: Boo King PhD, Phone: [phone] Performed By: #### L 500.4050, L100.0100 #### [facility] [address] [place], [address] Blood polychromasia detectio n by light microscopyOrdered By: Coco Lima on 08-11-2024 Polychromasia LM Ql (Bld) 1+ [facility] CBC W/Diff, Automatedon 07-18 Anisocytosis Ql (Bld) 2+ Normal [facility] Comment on above: Performed By: #### L 500.4050, L100.0100 #### [facility] [address] [place], [address] MACROCYTOSIS 1+ Normal [facility] Comment on above: Performed By: #### L 500.4050, L100.0100 #### [facility] [address] [place], [address] PLT EST ADEQUATE Normal ADEQ [facility] Comment on above: Performed By: #### L 500.4050, L100.0100 #### [facility] [address] [place], [address] POLYCHROMASIA 1+ Normal [facility] Comment on above: Performed By: #### L 500.4050, L100.0100 #### [facility] [address] [place], [address] SMEAR COMMENT SCANNED Normal [facility] Comment on above: Performed By: #### L 500.4050, L100.0100 #### [facility] [address] [place], [address] Comprehensive Metabolic Prof ilon 08-11-2024 Albumin [Mass/Vol] 3.5 g/dL Normal 3.2-5.0 [facility] Comment on above: Performed By: #### L 500.4050, L100.0100 #### [facility] [address] [place], [address] Albumin/Globulin [Mass ratio] 1.1 {ratio} Normal 0.9-2.4 [facility] Comment on above: Performed By: #### L 500.4050, L100.0100 #### [facility] [address] [place], [address] ALK P 81 U/L Normal 45-117 [facility] Comment on above: Performed By: #### L 500.4050, L100.0100 #### [facility] [address] [place], [address] ALT [Catalytic activity/Vol] 33 U/L Normal 13-56 [facility] Comment on above: Performed By: #### L 500.4050, L100.0100 #### [facility] [address] [place], [address] AST [Catalytic activity/Vol] 19 U/L Normal 15-37 [facility] Comment on above: Performed By: #### L 500.4050, L100.0100 #### [facility] [address] [place], [address] Bilirubin [Mass/Vol] 0.30 mg/dL Normal 0.20-1.00 [facility] Comment on above: Result Comment: For patients on eltrombopag therapy, use of Dimension [place] TBIL is not recommended. Performed By: #### L 500.4050, L100.0100 #### [facility] [address] [place], [address] BUN/CRE 15.4 RATIO Normal 10-20 [facility] Comment on above: Performed By: #### L 500.4050, L100.0100 #### [facility] [address] [place], [address] CA,Total 9.1 mg/dL Normal 8.5-10.1 [facility] Comment on above: Performed By: #### L 500.4050, L100.0100 #### [facility] [address] [place], [address] Chloride [Moles/Vol] 108 mmol/L High 98-107 [facility] Comment on above: Performed By: #### L 500.4050, L100.0100 #### [facility] [address] [place], [address] CO2 [Moles/Vol] 23.0 mmol/L Normal 21.0-32.0 [facility] Comment on above: Performed By: #### L 500.4050, L100.0100 #### [facility] [address] [place], [address] Creatinine [Mass/Vol] 0.84 mg/dL Normal 0.55-1.02 [facility] Comment on above: Result Comment: The validity of the calculated GFR GFRAA in patients over 70 years has not been determined. Clinical correlation is essential. Performed By: #### L 500.4050, L100.0100 #### [facility] [address] [place], [address] ECRCL 116.23 ml/min Normal [facility] Comment on above: Performed By: #### L 500.4050, L100.0100 #### [facility] [address] [place], [address] EST GFR - AA 95 mL/min Normal >60 [facility] Comment on above: Result Comment: Afri can Dutch GFR Calc Performed By: #### L 500.4050, L100.0100 #### [facility] [address] [place], [address] GAP 8 Normal 5-15 [facility] Comment on above: Performed By: #### L 500.4050, L100.0100 #### [facility] [address], [address] GFR/1.73 sq M.predicted among non-blacks MDRD (S/P/Bld) [Vol rate/Area] 78 mL/min/{1.73_m2} Normal >60 [facility] Comment on above: Result Comment: Non- GFR Calc Performed By: #### L 500.4050, L100.0100 #### [facility] [address] [place], [address] Globulin (S) [Mass/Vol] 3.2 g/dL Normal 2.2-4.2 [facility] Comment on above: Performed By: #### L 500.4050, L100.0100 #### [facility] [address] [place], [address] Glucose [Mass/Vol] 199 mg/dL High 74-106 [facility] Comment on above: Result Comment: Fast ing Glucose result greater than or equal to 126 mg/dL suggests DIABETES MELLITUS per A.D.A. criteria. Performed By: #### L 500.4050, L100.0100 #### [facility] [address], [address] Potassium [Moles/Vol] 4.0 mmol/L Normal 3.5-5.1 [facility] Comment on above: Performed By: #### L 500.4050, L100.0100 #### [facility] [address] [place], [address] Sodium [Moles/Vol] 139 mmol/L Normal 136-145 [facility] Comment on above: Performed By: #### L 500.4050, L100.0100 #### [facility] [address] [place], [address] T PROT 6.7 g/dL Normal 6.4-8.2 [facility] Comment on above: Performed By: #### L 500.4050, L100.0100 #### [facility] [address] [place], [address] Urea nitrogen [Mass/Vol] 13 mg/dL Normal 7-18 [facility] Comment on above: Performed By: #### L 500.4050, L100.0100 #### [facility] [address] [place], [address] Macrocytes Ql (Bld)Ordered B y: Coco Lima on 08-11-2024 Macrocytosis 1+ [facility] Macrocytes detectionOrdered By: Coco Lima on 08-11-2024 Macrocytes Ql (Bld) 1+ [facility] Oncology Visit Reporton 07-18 Oncology Visit Report [facility] [address] [place] [address] OFFICE VISIT Date of Service: 08/11/24 1020 MR#: [id number] Acct: [id number] Name: JESSICA ALARCON Rep #: [id number] : 1980 From: Coco Lima MD Age/Sex: 43/F Location: [facility] Status: Signed HPI Subjective Date of Service 08/11/24 Chief Complaint Ovarian cancer on treatment History of Present Illness 43-year-old female who was diagnosed with Asherman's syndrome for several years and in 2023 experienced increasing abdominal and pelvic pain and a CT scan of the abdomen and pelvis revealed a pelvic mass and an elevated CA125 of 76. February 2024 she had genetic testing ([employer]) that showed no known pathogenic variants. 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 March 2024 next generation sequence, tissue: No potentially actionable pathogenic variants, tumor mutational burden was low (3.2M/MB) April 22, 2024 received 1 cycle of carboplatin Taxol but developed an anaphylactic reaction to Taxol. May 13, 2024 received the second cycle with carboplatin and Taxotere replace Taxol. This was complicated with excessive GI toxicity requiring hospitalization May 19-2023, she was neutropenic but not febrile. CA-125 05/11/24 446 04/20/24 181 03/25/24 76 June 04, 2024 transferred her care to [facility] and resumed carboplatin and Taxotere with maximum supportive care. Treatment summary and response: * March 2024 laparoscopic hysterectomy, BSO, omentectomy and staging. * April 2024[place] taxane systemic chemotherapy (initially Taxol then Taxotere) Interval History Was hospitalized in [facility] a week earlier with presumed pneumonia complicated with a pleural effusion, improving after course of antibiotics and drainage of pleural fluid. 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 carcinomatosis Ovarian cancer Acute superficial venous thrombosis of lower extremity Anxiety and depression Carcinoma of ovary, stage 3 Surgical History History of appendectomy History of colposcopy H/O LEEP History of hysterectomy Family History Aunt Breast cancer Cancer Father's side Aunt Breast cancer Great aunt Social History Smoking Status: Never smoker alcohol intake: current alcohol intake frequency: holidays/special occasions only substance use type: does not use ROS Constitutional Constitutional: Reports systems reviewed and no addt'l complaints, except as documented and fatigue; Denies fever(s) Eyes Eyes: Reports systems reviewed and no addt'l complaints, except as documented ENT HEENT: Reports systems reviewed and no addt'l complaints, except as documented; Denies mouth lesions Cardiovascular Cardiovascular: Reports systems reviewed and no addt'l complaints, except as documented; Denies chest pain with activity or edema Respiratory/Chest Respiratory/Chest: Reports systems reviewed and no addt'l complaints, except as documented; Denies cough or dyspnea Gastrointestinal Gastrointestinal: Reports systems reviewed and no addt'l complaints, except as documented, diarrhea and other Details: Recovering from an acute diarrhea that followed Taxotere ; Denies nausea Genitourinary Genitourinary: Reports systems reviewed and no addt'l complaints, except as documented Musculoskeletal Musculoskeletal: Reports systems reviewed and no addt'l complaints, except as documented, arthralgias, myalgias and other Details: Generalized body aches followed Taxotere Integumentary Integumentary: Reports systems reviewed and no addt'l complaints, except as documented; Denies new lesions Neurologic Neurologic: Reports systems reviewed and no addt'l complaints, except as documented; Denies focal weakness or paresthesias Psychiatric Psychiatric: Reports systems reviewed and no addt'l complaints, except as documented Endocrine Endocrinology: Reports systems reviewed and no addt'l complaints, except as documented Hematologic/Lymphatic Hematologic/Lymphatic: Reports systems reviewed and no addt'l complaints, except as documented Allergic/Immunologic Allergic/Immunologic: Reports systems reviewed and no addt'l complaints, except as documented Intake Vit (more content not included)... Normal [facility] Platelet estimateOrdered By: Coco Lima on 08-11-2024 Platelets LM Ql (Bld) ADEQUATE ADEQ [facility] Platelets LM Ql (Bld)Ordered By: Coco Lima on 08-11-2024 Platelet Estimate [facility] Polychromasia LM Ql (Bld)Ord ered By: Coco Lima on 08-11-2024 Polychromasia 1+ [facility] MYCOon 08-07-2024 Mycoplasma IgG Negative Normal [facility] Comment on above: Result Comment: INTE RPRETATION OF MYCOPLASMA IgG BY EIA: Negative: No detectable M. pneumoniae IgG antibody. Positive: Mycoplasma pneumoniae IgG antibody Detected. Equivocal: Equivocal for IgG antibodies to Mycoplasma pneumoniae. Suggest repeat testing in 10-14 days. Performed By: #### M YCO #### [facility] [address] [place] [address] .Auto Diffon 08-06-2024 Basophil, Absolute 0.0 10 3/mcL Normal 0.0-0.3 [facility] Comment on above: Performed By: #### A TEJAL, BMP, GFR, CBC, ADIFF ####[address] [address] Basophils/100 WBC (Bld) 0.3 % Normal 0.0-2.5 [facility] Comment on above: Performed By: #### A TEJAL, BMP, GFR, CBC, ADIFF ####[address] [address] Eosinophil, Absolute 0.0 10 3/mcL Normal 0.0-0.7 [facility] Comment on above: Performed By: #### A TEJAL, BMP, GFR, CBC, ADIFF ####[address] [address] Eosinophils/100 WBC (Bld) 0.2 % Normal 0.0-6.0 [facility] Comment on above: Performed By: #### A TEJAL, BMP, GFR, CBC, ADIFF ####[address] [address] Lymphocyte, Absolute 0.9 10 3/mcL Normal 0.9-4.3 [facility] Comment on above: Performed By: #### A TEJAL, BMP, GFR, CBC, ADIFF ####[address] [address] Lymphocytes/100 WBC (Bld) 15.5 % Low 20.0-40.0 [facility] Comment on above: Performed By: #### A TEJAL, BMP, GFR, CBC, ADIFF ####[address] [address] Monocyte, Absolute 0.7 10 3/mcL Normal 0.1-1.4 [facility] Comment on above: Performed By: #### A TEJAL, BMP, GFR, CBC, ADIFF ####[address] [address] Monocytes/100 WBC (Bld) 12.3 % Normal 2.0-13.0 [facility] Comment on above: Performed By: #### A TEJAL, BMP, GFR, CBC, ADIFF ####[address] [address] Neutrophils/100 WBC (Bld) 71.7 % Normal 50.0-75.0 [facility] Comment on above: Performed By: #### A TEJAL, BMP, GFR, CBC, ADIFF ####[place] [id number] [place] [address] .GFRon 08-06-2024 GFR >60 Normal [facility] Comment on above: Result Comment: GFR Population mean for , Non- Americans Ages 20-29 = 116 mL/min/1.73 sq.m. Ages 30-39 = 107 mL/min/1.73 sq.m. Ages 40-49 = 99 mL/min/1.73 sq.m. Ages 50-59 = 93 mL/min/1.73 sq.m. Ages 60-69 = 85 mL/min/1.73 sq.m. Ages 70+ = 75 mL/min/1.73 sq.m. Chronic Kidney Disease: Less than 60 mL/min/1.73 square meters End Stage Renal Disease: Less than 15 mL/min/1.73 square meters Performed By: #### A TEJAL, BMP, GFR, CBC, ADIFF ####[address] [address] GFR Non- >60 Normal [facility] Comment on above: Result Comment: GFR Population mean for , Non- Americans Ages 20-29 = 116 mL/min/1.73 sq.m. Ages 30-39 = 107 mL/min/1.73 sq.m. Ages 40-49 = 99 mL/min/1.73 sq.m. Ages 50-59 = 93 mL/min/1.73 sq.m. Ages 60-69 = 85 mL/min/1.73 sq.m. Ages 70+ = 75 mL/min/1.73 sq.m. Chronic Kidney Disease: Less than 60 mL/min/1.73 square meters End Stage Renal Disease: Less than 15 mL/min/1.73 square meters Performed By: #### A TEJAL, BMP, GFR, CBC, ADIFF ####[address] [address] .NEUABSon 08-06-2024 Neutrophil, Absolute 4.1 10 3/mcL Normal 2.3-8.1 [facility] Comment on above: Performed By: #### A TEJAL, BMP, GFR, CBC, ADIFF ####[place] [id number] BFPRon 08-06-2024 Body Fluid Path Review Normal [facility] Comment on above: Order Comment: Added by Discern Result Comment: Nega tive for malignant cells. (This evaluation is based on a screening review of one cytospin slide prepared primarily for differential cell count; if clinical index of suspicion is high, Cytology evaluation is recommended, as clinically indicated) Electronically signed by: DINH MCKEON MD 08.06.2024 10:20 EST Performed By: #### B FPR, GLUBF, PROBF, LDBF, BFCT, PHBF, AMYBF ####[place] [address] BMPon 08-06-2024 BUN/Creatinine Ratio 17.9 ratio Normal 10.0-22.0 [facility] Comment on above: Order Comment: Routi ne for 0501 the morning of patient admission. Performed By: #### A TEJAL, BMP, GFR, CBC, ADIFF ####[address] [address] Calcium [Mass/Vol] 9.3 mg/dL Normal 8.7-10.4 [facility] Comment on above: Order Comment: Routi ne for 0501 the morning of patient admission. Performed By: #### A TEJAL, BMP, GFR, CBC, ADIFF ####[address] [address] Chloride [Moles/Vol] 108 mmol/L Normal 98-110 [facility] Comment on above: Order Comment: Routi ne for 0501 the morning of patient admission. Performed By: #### A TEJAL, BMP, GFR, CBC, ADIFF ####[address] [address] CO2 [Moles/Vol] 27 mmol/L Normal 22-32 [facility] Comment on above: Order Comment: Routi ne for 0501 the morning of patient admission. Performed By: #### A TEJAL, BMP, GFR, CBC, ADIFF ####[address] [address] Creatinine [Mass/Vol] 0.67 mg/dL Normal 0.50-1.20 [facility] Comment on above: Order Comment: Routi ne for 0501 the morning of patient admission. Result Comment: Test ing performed on IMVU analyzer using enzymatic creatinine methodology. Performed By: #### A TEJAL, BMP, GFR, CBC, ADIFF ####[place] [address] Electrolyte Balance 6.0 mEq/L Normal 4.0-15.[address] [facility] Comment on above: Order Comment: Routi ne for 0501 the morning of patient admission. Performed By: #### A TEJAL, BMP, GFR, CBC, ADIFF ####[place] [address] Glucose [Mass/Vol] 93 mg/dL Normal 70-110 [facility] Comment on above: Order Comment: Routi ne for 0501 the morning of patient admission. Performed By: #### A TEJAL, BMP, GFR, CBC, ADIFF ####[place] [address] Potassium [Moles/Vol] 3.8 mmol/L Normal 3.5-5.0 [facility] Comment on above: Order Comment: Routi ne for 0501 the morning of patient admission. Performed By: #### A TEJAL, BMP, GFR, CBC, ADIFF ####[place] [address] Sodium [Moles/Vol] 141 mmol/L Normal 136-145 [facility] Comment on above: Order Comment: Routi ne for 0501 the morning of patient admission. Performed By: #### A TEJAL, BMP, GFR, CBC, ADIFF ####[place] [address] Urea nitrogen [Mass/Vol] 12.0 mg/dL Normal 8.0-22.0 [facility] Comment on above: Order Comment: Routi ne for 0501 the morning of patient admission. Performed By: #### A TEJAL, BMP, GFR, CBC, ADIFF ####[place] [address] CBCon 08-06-2024 Erythrocyte distribution width (RBC) [Ratio] 23.0 % High 11.5-15.5 [facility] Comment on above: Order Comment: Routi ne for 0501 the morning of patient admission. Performed By: #### A ETJAL, BMP, GFR, CBC, ADIFF ####[place] [address] Hematocrit (Bld) [Volume fraction] 27.9 % Low 34.0-46.0 [facility] Comment on above: Order Comment: Routi ne for 0501 the morning of patient admission. Performed By: #### A TEJAL, BMP, GFR, CBC, ADIFF ####[place] [address] Hgb 9.6 G/dL Low 12.0-16.0 [facility] Comment on above: Order Comment: Routi ne for 0501 the morning of patient admission. Performed By: #### A TEJAL, BMP, GFR, CBC, ADIFF ####[place] [address] MCH (RBC) [Entitic mass] 31.7 pg Normal 27.0-33.0 [facility] Comment on above: Order Comment: Routi ne for 0501 the morning of patient admission. Performed By: #### A TEJAL, BMP, GFR, CBC, ADIFF ####[place] [address] MCHC 34.2 G/dL Normal 32.0-36.0 [facility] Comment on above: Order Comment: Routi ne for 0501 the morning of patient admission. Performed By: #### A TEJAL, BMP, GFR, CBC, ADIFF ####[place] [address] MCV (RBC) [Entitic vol] 92.8 fL Normal 80.0-99.0 [facility] Comment on above: Order Comment: Routi ne for 0501 the morning of patient admission. Performed By: #### A TEJAL, BMP, GFR, CBC, ADIFF ####[place] [address] Platelet 167 10 3/mcL Normal 150-450 [facility] Comment on above: Order Comment: Routi ne for 0501 the morning of patient admission. Performed By: #### A TEJAL, BMP, GFR, CBC, ADIFF ####[place] [id number] [place] [address] Platelet mean volume (Bld) [Entitic vol] 8.2 fL Normal 6.6-10.5 [facility] Comment on above: Order Comment: Routi ne for 0501 the morning of patient admission. Performed By: #### A TEJAL, BMP, GFR, CBC, ADIFF ####[place] [address] RBC 3.01 10 6/mcL Low 4.10-5.30 [facility] Comment on above: Order Comment: Routi ne for 0501 the morning of patient admission. Performed By: #### A TEJAL, BMP, GFR, CBC, ADIFF ####[place] [id number] [place] [address] WBC 5.7 10 3/mcL Normal 4.5-10.8 [facility] Comment on above: Order Comment: Routi ne for 0501 the morning of patient admission. Performed By: #### A TEJAL, BMP, GFR, CBC, ADIFF ####[place] [address] LABORATORYOrdered By: SYSTEM SYSTEM on 08-06-2024 Basophils (Bld) [#/Vol] 0.0 103/mcL Normal 0.0 - 0.3 10^3/mcL AH Workflow SS Basophils/100 WBC (Bld) 0.3 % Normal 0.0 - 2.5 % AH Workflow SS Calcium [Mass/Vol] 9.3 mg/dL Normal 8.7 - 10. 4 mg/dL AH ADM SS Chloride [Moles/Vol] 108 mmol/L Normal 98 - 11 0 mEq/L AH ADM SS CO2 [Moles/Vol] 27 mmol/L Normal 22 - 32 mEq/L ADM SS Creatinine [Mass/Vol] 0.67 mg/dL Normal 0.50 - 1.20 mg/dL AH ADM SS Comment on above: Interpretive Data: T esting performed on IMVU analyzer using enzymatic creatinine methodology. Electrolyte Balance 6.0 mEq/L Normal 4.0 - 15 .0 mEq/L AH ADM SS Eosinophils (Bld) [#/Vol] 0.0 103/mcL Normal 0.0 - 0.7 10^3/mcL Workflow SS Eosinophils/100 WBC (Bld) 0.2 % Normal 0.0 - 6.0 % Workflow SS Erythrocyte distribution width (RBC) [Ratio] 23.0 % High 11.5 - 15.5 % Workflow SS GFR/1.73 sq M.predicted among blacks MDRD (S/P/Bld) [Vol rate/Area] ml/min/1.73sqm Invalid Interpretation Code [employer] [facility] S Comment on above: Interpretive Data: GFR Population mean for , Non- Americans Ages 20-29 = 116 mL/min/1.73 sq.m. Ages 30-39 = 107 mL/min/1.73 sq.m. Ages 40-49 = 99 mL/min/1.73 sq.m. Ages 50-59 = 93 mL/min/1.73 sq.m. Ages 60-69 = 85 mL/min/1.73 sq.m. Ages 70+ = 75 mL/min/1.73 sq.m. Chronic Kidney Disease: Less than 60 mL/min/1.73 square meters End Stage Renal Disease: Less than 15 mL/min/1.73 square meters GFR/1.73 sq M.predicted among non-blacks MDRD (S/P/Bld) [Vol rate/Area] ml/min/1.73sqm Invalid Interpretation Code [employer] [facility] S Comment on above: Interpretive Data: GFR Population mean for , Non- Americans Ages 20-29 = 116 mL/min/1.73 sq.m. Ages 30-39 = 107 mL/min/1.73 sq.m. Ages 40-49 = 99 mL/min/1.73 sq.m. Ages 50-59 = 93 mL/min/1.73 sq.m. Ages 60-69 = 85 mL/min/1.73 sq.m. Ages 70+ = 75 mL/min/1.73 sq.m. Chronic Kidney Disease: Less than 60 mL/min/1.73 square meters End Stage Renal Disease: Less than 15 mL/min/1.73 square meters Glucose [Mass/Vol] 93 mg/dL Normal 70 - 110 mg/dL AH ADM SS Hematocrit (Bld) [Volume fraction] 27.9 % Low 34.0 - 46.0 % AH Workflow SS Hemoglobin (Bld) [Mass/Vol] 9.6 G/dL Low 12.0 - 16.0 G/dL AH Workflow SS Lymphocytes (Bld) [#/Vol] 0.9 103/mcL Normal 0.9 - 4.3 10^3/mcL AH Workflow SS Lymphocytes/100 WBC (Bld) 15.5 % Low 20.0 - 40.0 % AH Workflow SS MCH (RBC) [Entitic mass] 31.7 pg Normal 27.0 - 33.0 pg AH Workflow SS MCHC 34.2 G/dL Normal 32.0 - 36.0 G/dL AH Workflow SS MCV (RBC) [Entitic vol] 92.8 fL Normal 80.0 - 99.0 fL AH Workflow SS Monocytes (Bld) [#/Vol] 0.7 103/mcL Normal 0.1 - 1.4 10^3/mcL AH Workflow SS Monocytes/100 WBC (Bld) 12.3 % Normal 2.0 - 13.0 % AH Workflow SS Neutrophils (Bld) [#/Vol] 4.1 103/mcL Normal 2.3 - 8.1 10^3/mcL AH Workflow SS Neutrophils/100 WBC (Bld) 71.7 % Normal 50.0 - 75.0 % AH Workflow SS Platelet mean volume (Bld) [Entitic vol] 8.2 fL Normal 6.6 - 10.5 fL AH Workflow SS Platelets (Bld) [#/Vol] 167 103/mcL Normal 150 - 450 10^3/mcL AH Workflow SS Potassium [Moles/Vol] 3.8 mmol/L Normal 3.5 - 5.0 mEq/L AH ADM SS RBC (Bld) [#/Vol] 3.01 106/mcL Low 4.10 - 5.3 0 10^6/mcL AH Workflow SS Sodium [Moles/Vol] 141 mmol/L Normal 136 - 145 mEq/L AH ADM SS Urea nitrogen [Mass/Vol] 12.0 mg/dL Normal 8.0 - 22.0 mg/dL ADM SS Urea nitrogen/Creatinine [Mass ratio] 17.9 ratio Normal 10.0 - 22.0 ratio ADM SS WBC (Bld) [#/Vol] 5.7 103/mcL Normal 4.5 - 10.8 10^3/mcL AH Workflow SS Non-Livestock Sales Representative Cytology Reporton Non-Livestock Sales Representative Cytology Report . Pathology Reports Accession: Collected Date/Time: Received Date/Time: Pathologist: [id number] 08/05/2024 10:23 EST 08/05/2024 13:08 EST MD DINH MCKEON Non-Livestock Sales Representative Cytology Report CLINICAL INFORMATION: pleural effusion, hx of ovarian cancer DIAGNOSTIC CATEGORY: NEGATIVE FOR MALIGNANCY. COMMENT: Lymphocytosis SPECIMEN: Left Pleural Fluid GROSS DESCRIPTION: # of Blocks: 1 # of Monolayers: 1 Volume (ml) 1100 Color: fresh milky lopez Electronically Signed by Pathology Report verified by [facility] Screened by: TREVA Electronically signed by DINH MCKEON MD Sign-Out Date: 08/06/2024 10:18 Performing Lab: [facility], [address] [place] [address] Pathology Dept Disclaimer If ancillary studies were utilized, the following Laboratory Developed Test (LDT) disclaimer will apply: Under CLIA requirements, [facility] is qualified to perform high complexity testing. For all ancillary stains, positive and negative controls stain appropriately. Performance characteristics of immunohistochemical and chromogenic in-situ hybridization tests have been determined by [facility]. These tests are used for clinical purposes, They should not be regarded as investigational or for research. Normal [facility] XR CHEST 2 VIEWSon 4 XR CHEST 2 VIEWS ORIGINAL EXAMINATION: TWO XRAY VIEWS OF THE CHEST 08/06/2024 9:06 am COMPARISON: 08/05/2024 HISTORY: ORDERING SYSTEM PROVIDED HISTORY: Reason for Exam: Shortness of breath FINDINGS: Persistent blunting left costophrenic angle appears to reflect effusion, scarring and or adjacent atelectasis or infiltrate. There is non optimal inspiratory effort. Tunneled right IJ central line remains in functional in stable position. There is no cardiomegaly, pulmonary edema or pneumothorax. IMPRESSION: Persistent blunting left costophrenic angle that may reflect effusion, atelectasis or infiltrate. Interpreted by: Shaquille Cardona DO Preliminary Report By: Shaquille Cardona DO Electronically signed By Shaquille Cardona DO Dictated Date: 08/06/2024 9:30:49 AM Prelim Date: 08/06/2024 9:31:31 AM Sign Date: 08/06/2024 9:31:31 AM Ordering Provider: MELANIE SANCHEZ [facility] AMYBFon 08-05-2024 Amylase BF Type Thoracentesis Normal [facility] Comment on above: Result Comment: The reference interval(s) and other method performance specifications have not been established for this body fluid. The test result must be integrated into the clinical content for interpretation. Performed By: #### B FPR, GLUBF, PROBF, LDBF, BFCT, PHBF, AMYBF #### [address] [address] Amylase [Catalytic activity/Vol] 23 U/L [facility] Comment on above: Performed By: #### B FPR, GLUBF, PROBF, LDBF, BFCT, PHBF, AMYBF #### [address] [address] BFCTon 08-05-2024 Cells Counted BF 100 [facility] Comment on above: Performed By: #### B FPR, GLUBF, PROBF, LDBF, BFCT, PHBF, AMYBF ####[address] [address] Lymphocytes/100 WBC (Bld) 81 % [facility] Comment on above: Performed By: #### B FPR, GLUBF, PROBF, LDBF, BFCT, PHBF, AMYBF ####[address] [address] Mononuclear cell % BF 14 % Normal [facility] Comment on above: Performed By: #### B FPR, GLUBF, PROBF, LDBF, BFCT, PHBF, AMYBF ####[address] [address] Neutrophils/100 WBC (Bld) 5 % [facility] Comment on above: Performed By: #### B FPR, GLUBF, PROBF, LDBF, BFCT, PHBF, AMYBF ####[address] [address] Body Fluid Source Thoracentesis Normal [facility] Comment on above: Result Comment: Refe rence ranges have not been established for this body fluid. The test results must be integrated into the clinical context for interpretation. Performed By: #### B FPR, GLUBF, PROBF, LDBF, BFCT, PHBF, AMYBF ####[place] [id number] [place] [address] Total Nucleated Cells 8189 /mm3 Normal [facility] Comment on above: Performed By: #### B FPR, GLUBF, PROBF, LDBF, BFCT, PHBF, AMYBF ####[place] [id number] [place] [address] CBC W/Diff, Automatedon 11-2 0-2023 Absolute Neut Normal 2.0-7.7 [facility] Comment on above: Result Comment: Canc elled via OM: Patient Admitted to Hospital Performed By: #### L 500.4050, L100.0100 #### [facility] [address] [place], [address] HCT Normal 37-47 [facility] Comment on above: Result Comment: Canc elled via OM: Patient Admitted to Hospital Performed By: #### L 500.4050, L100.0100 #### [facility] [address] [place], [address] HGB Normal 12.0-15.0 [facility] Comment on above: Result Comment: Canc elled via OM: Patient Admitted to Hospital Performed By: #### L 500.4050, L100.0100 #### [facility] [address] [place], [address] MCH Normal 27.0-32.0 [facility] Comment on above: Result Comment: Canc elled via OM: Patient Admitted to Hospital Performed By: #### L 500.4050, L100.0100 #### [facility] [address] [place], [address] MCHC Normal 32-36 [facility] Comment on above: Result Comment: Canc elled via OM: Patient Admitted to Hospital Performed By: #### L 500.4050, L100.0100 #### [facility] [address] [place], [address] MCV Normal 81-99 [facility] Comment on above: Result Comment: Canc elled via OM: Patient Admitted to Hospital Performed By: #### L 500.4050, L100.0100 #### [facility] [address] [place], [address] NEUT% Normal 47-70 [facility] Comment on above: Result Comment: Canc elled via OM: Patient Admitted to Hospital Performed By: #### L 500.4050, L100.0100 #### [facility] [address] [place], [address] PLT Normal 150-450 [facility] Comment on above: Result Comment: Canc elled via OM: Patient Admitted to Hospital Performed By: #### L 500.4050, L100.0100 #### [facility] [address] [place], [address] RBC Normal 4.2-5.4 [facility] Comment on above: Result Comment: Canc elled via OM: Patient Admitted to Hospital Performed By: #### L 500.4050, L100.0100 #### [facility] [address] [place], [address] RDW CV Normal 11.6-14.6 [facility] Comment on above: Result Comment: Canc elled via OM: Patient Admitted to Hospital Performed By: #### L 500.4050, L100.0100 #### [facility] [address] [place], [address] RDW SD Normal 35.1-43.9 [facility] Comment on above: Result Comment: Canc elled via OM: Patient Admitted to Hospital Performed By: #### L 500.4050, L100.0100 #### [facility] [address] [place], [address] WBC Normal 4.4-11.0 [facility] Comment on above: Result Comment: Canc elled via OM: Patient Admitted to Hospital Performed By: #### L 500.4050, L100.0100 #### [facility] [address] [place], [address] Comprehensive Metabolic Prof ilon 08-05-2024 ALB Normal 3.2-5.0 [facility] Comment on above: Result Comment: Canc elled via OM: Patient Admitted to Hospital Performed By: #### L 500.4050, L100.0100 #### [facility] [address] [place], [address] ALK P Normal 45-117 [facility] Comment on above: Result Comment: Canc elled via OM: Patient Admitted to Hospital Performed By: #### L 500.4050, L100.0100 #### [facility] [address] [place], [address] ALT Normal 13-56 [facility] Comment on above: Result Comment: Canc elled via OM: Patient Admitted to Hospital Performed By: #### L 500.4050, L100.0100 #### [facility] [address] [place], [address] AST Normal 15-37 [facility] Comment on above: Result Comment: Canc elled via OM: Patient Admitted to Hospital Performed By: #### L 500.4050, L100.0100 #### [facility] [address] [place], [address] BUN Normal 7-18 [facility] Comment on above: Result Comment: Canc elled via OM: Patient Admitted to Hospital Performed By: #### L 500.4050, L100.0100 #### [facility] [address] [place], [address] BUN/CRE Normal 10-20 [facility] Comment on above: Result Comment: Canc elled via OM: Patient Admitted to Hospital Performed By: #### L 500.4050, L100.0100 #### [facility] [address] [place], [address] CA,Total Normal 8.5-10.1 [facility] Comment on above: Result Comment: Canc elled via OM: Patient Admitted to Hospital Performed By: #### L 500.4050, L100.0100 #### [facility] [address] [place], [address] CL Normal 98-107 [facility] Comment on above: Result Comment: Canc elled via OM: Patient Admitted to Hospital Performed By: #### L 500.4050, L100.0100 #### [facility] [address] [place], [address] CO2 Normal 21.0-32.0 [facility] Comment on above: Result Comment: Canc elled via OM: Patient Admitted to Hospital Performed By: #### L 500.4050, L100.0100 #### [facility] [address] [place], [address] CREAT,SERUM Normal 0.55-1.02 [facility] Comment on above: Result Comment: Canc elled via OM: Patient Admitted to Hospital Performed By: #### L 500.4050, L100.0100 #### [facility] [address] [place], [address] EST GFR Normal >60 [facility] Comment on above: Result Comment: Canc elled via OM: Patient Admitted to Hospital Performed By: #### L 500.4050, L100.0100 #### [facility] [address] [place], [address] EST GFR - AA Normal >60 [facility] Comment on above: Result Comment: Canc elled via OM: Patient Admitted to Hospital Performed By: #### L 500.4050, L100.0100 #### [facility] [address] [place], [address] GAP Normal 5-15 [facility] Comment on above: Result Comment: Canc elled via OM: Patient Admitted to Hospital Performed By: #### L 500.4050, L100.0100 #### [facility] [address] [place], [address] GLU Normal 74-106 [facility] Comment on above: Result Comment: Canc elled via OM: Patient Admitted to Hospital Performed By: #### L 500.4050, L100.0100 #### [facility] [address] [place], [address] Potassium Normal 3.5-5.1 [facility] Comment on above: Result Comment: Canc elled via OM: Patient Admitted to Hospital Performed By: #### L 500.4050, L100.0100 #### [facility] [address] [place], [address] T BILI Normal 0.20-1.00 [facility] Comment on above: Result Comment: Canc elled via OM: Patient Admitted to Hospital Performed By: #### L 500.4050, L100.0100 #### [facility] [address] [place], [address] T PROT Normal 6.4-8.2 [facility] Comment on above: Result Comment: Canc elled via OM: Patient Admitted to Hospital Performed By: #### L 500.4050, L100.0100 #### [facility] [address] [place], [address] Comprehensive Metabolic Profil Normal 136-145 [facility] Comment on above: Result Comment: Canc elled via OM: Patient Admitted to Hospital Performed By: #### L 500.4050, L100.0100 #### [facility] [address] [place], [address] GLUBFon 08-05-2024 Glucose Body Fluid Spec Type Thoracentesis Normal [facility] Comment on above: Result Comment: Spec imen lipemic. All tests except CO2, cholesterol, triglyceride and HDL were run on a specimen processed to remove lipemia. The reference interval(s) and other method performance specifications have not been established for this body fluid. The test result must be integrated into the clinical content for interpretation. Performed By: #### B FPR, GLUBF, PROBF, LDBF, BFCT, PHBF, AMYBF #### [address] [address] Glucose BF 95.0 mg/dL Normal [facility] Comment on above: Performed By: #### B FPR, GLUBF, PROBF, LDBF, BFCT, PHBF, AMYBF #### [address] [address] LABORATORYOrdered By: SYSTEM SYSTEM on 08-05-2024 Amylase [Catalytic activity/Vol] 23 U/L Invalid Interpretation Code ADM SS Glucose (Body fld) [Mass/Vol] 95.0 mg/dL Invalid Interpretation Code ADM SS LDH (Body fld) [Catalytic activity/Vol] 264.0 1 Invalid Interpretation Code ADM SS Protein (Body fld) [Mass/Vol] 4.3 G/dL Invalid Interpretation Code ADM SS LABORATORYOrdered By: Yanelis Adhikari on 08-05-2024 Amylase BF Type Thoracentesis 4 (08/05/24 10:23 AM) Normal Chemistry S Comment on above: Interpretive Data: T he reference interval(s) and other method performance specifications have not been established for this body fluid. The test result must be integrated into the clinical content for interpretation. Glucose Body Fluid Spec Type Thoracentesis 6, 7 (08/05/24 10:23 AM) Normal Chemistry S Comment on above: Result Comment: Spec imen lipemic. All tests except CO2, cholesterol, triglyceride and HDL were run on a specimen processed to remove lipemia. Interpretive Data: T he reference interval(s) and other method performance specifications have not been established for this body fluid. The test result must be integrated into the clinical content for interpretation. LDH Body Fluid Spec Type Thoracentesis 8 (08/05/24 10:23 AM) Normal Chemistry S Comment on above: Interpretive Data: T he reference interval(s) and other method performance specifications have not been established for this body fluid. The test result must be integrated into the clinical content for interpretation. . Protein BF Type Thoracentesis 3 (08/05/24 10:23 AM) Normal [facility] Chemistry S Comment on above: Interpretive Data: T he reference interval(s) and other method performance specifications have not been established for this body fluid. The test result must be integrated into the clinical content for interpretation. LABORATORYOrdered By: Juan David Wyatt on 08-05-2024 Cells Counted Total (Unsp spec) [#] 100 1 Invalid Interpretation Code Manual Heme SS Lymphocytes/100 WBC (Body fld) 81 % Invalid Interpretation Code Manual Heme SS Monocytes+Macrophages/ 100 WBC (Body fld) 14 % Invalid Interpretation Code Manual Heme SS Neutrophils/100 WBC (Body fld) 5 % Invalid Interpretation Code Manual Heme SS LABORATORYOrdered By: Rosaline aYncey on 08-05-2024 Nucleated RBC/100 WBC (Bld) [Ratio] 8189 % Invalid Interpretation Code Manual Heme SS Specimen source Nom (Body fld) Thoracentesis 2 (08/05/24 10:23 AM) Normal Manual Heme SS Comment on above: Interpretive Data: R eference ranges have not been established for this body fluid. The test results must be integrated into the clinical context for interpretation. LABORATORYOrdered By: Gamal Orosco on 08-05-2024 pH (Bld) 7.4 [pH] Invalid Interpretation Code Main Rapid Comm SS pH BF Type Thoracentesis 5 (08/05/24 10:23 AM) Normal AH Chemistry S Comment on above: Interpretive Data: T he reference interval(s) and other method performance specifications have not been established for this body fluid. The test result must be integrated into the clinical content for interpretation. LDBFon 08-05-2024 LDH Body Fluid Spec Type Thoracentesis Normal [facility] Comment on above: Result Comment: The reference interval(s) and other method performance specifications have not been established for this body fluid. The test result must be integrated into the clinical content for interpretation. . Performed By: #### B FPR, GLUBF, PROBF, LDBF, BFCT, PHBF, AMYBF #### [place] [address] LDH BF 264.0 U/L Normal [facility] Comment on above: Performed By: #### B FPR, GLUBF, PROBF, LDBF, BFCT, PHBF, AMYBF #### [place] [address] No Panel Informationon 08-05 Culture Body Fluid No growth to date [facility] GS Unsedimented 3+ Mononuclear cells No organisms seen. [facility] PHBFon 08-05-2024 pH BF 7.4 Normal [facility] Comment on above: Performed By: #### B FPR, GLUBF, PROBF, LDBF, BFCT, PHBF, AMYBF #### [place] [address] pH BF Spec Type Thoracentesis Normal [facility] Comment on above: Result Comment: The reference interval(s) and other method performance specifications have not been established for this body fluid. The test result must be integrated into the clinical content for interpretation. Performed By: #### B FPR, GLUBF, PROBF, LDBF, BFCT, PHBF, AMYBF #### [place] [address] PROBFo 08-05-2024 Protein BF Type Thoracentesis Normal [facility] Comment on above: Result Comment: The reference interval(s) and other method performance specifications have not been established for this body fluid. The test result must be integrated into the clinical content for interpretation. Performed By: #### B FPR, GLUBF, PROBF, LDBF, BFCT, PHBF, AMYBF #### [place] [address] Protein BF 4.3 G/dL Normal [facility] Comment on above: Performed By: #### B FPR, GLUBF, PROBF, LDBF, BFCT, PHBF, AMYBF #### [place] [address] XR CHEST 1 VIEWon 08-05-2024 XR CHEST 1 VIEW ORIGINAL EXAMINATION: ONE XRAY VIEW OF THE CHEST TECHNIQUE: One view AP upright COMPARISON: Chest 08/03/2024 HISTORY: ORDERING SYSTEM PROVIDED HISTORY: Reason for Exam: Post LEFT Thora FINDINGS: Support devices: Stable appearing right chest port with tip terminating in the right atrium. Cardiomediastinal: The heart is stable in size and configuration. Lungs: Interval decreased left-side pleural effusion and associated compressive atelectasis following thoracentesis without a pneumothorax. Low lung volumes with hypoventilatory changes. Osseous: No acute osseous pathology. IMPRESSION: Interval decreased left-side pleural effusion and associated compressive atelectasis following thoracentesis without a pneumothorax. Interpreted by: Chris Roberts MD Preliminary Report By: Chris Roberts MD Electronically signed By Chris Roberts MD Dictated Date: 08/05/2024 10:55:05 AM Prelim Date: 08/05/2024 10:56:48 AM Sign Date: 08/05/2024 10:56:48 AM Ordering Provider: REINA WOODS [facility] LABORATORYOrdered By: Vivek Montemayor on 08-04-2024 MRSA (PCR) Not Detected 1 (08/04/24 12:38 AM) Normal Not Detected Auto Viro/Sero SS Comment on above: Result Comment: [place] [id number] MRSA PCR Int MRSA DNA not detecte d by Real-Time Polymerase Chain Reaction (PCR). A negative result may be due to intermittent colonization. Colonization may vary depending on patient treatment, patient status, or exposure to high-risk environments.As with all PCR based in vitro diagnostic tests, extremely low levels of target below the limit of detection of the assay may be detected, but results may not be reproducible. Invalid Interpretation Code AH Auto Viro/Sero SS MRSAPCRon 08-04-2024 MRSA (PCR) Not detected Normal Not Detected [facility] Comment on above: Result Comment: [place] [id number] Performed By: #### M RSAPCR #### [facility] [address] [place], [place] [id number] MRSA PCR Int Normal [facility] Comment on above: Result Comment: MRSA DNA not detected by Real-Time Polymerase Chain Reaction (PCR). A negative result may be due to intermittent colonization. Colonization may vary depending on patient treatment, patient status, or exposure to high-risk environments. As with all PCR based in vitro diagnostic tests, extremely low levels of target below the limit of detection of the assay may be detected, but results may not be reproducible. See Below Performed By: #### M RSAPCR #### [address] [address] MYCOon 08-04-2024 Mycoplasma IgM Negative Normal [facility] Comment on above: Result Comment: INTE RPRETATION OF MYCOPLASMA IgM: Negative: IgM to M. pneumoniae Absent, or at levels below the assay limit of detection. Positive: IgM to M. pneumoniae Present. Invalid: Test results are invalid due to invalid internal control. Assay was performed in duplicate. Repeat testing is suggested if clinically indicated. Performed By: #### M YCO #### [address] [address] No Panel Informationon 08-04 Microscopic examination of blood, culture Culture has been received in lab and is no growth to date. Routine cultures are held for 5 days. [facility] Legionella Urine Ag Presumptive negative for L. pneumophila serogroup 1 antigen in urine, suggesting no recent or current infection. Legionnaire's disease cannot be ruled out since other serogroups and species may also cause disease. [facility] US CHESTon 08-04-2024 US CHEST ORIGINAL EXAMINATION: ULTRASOUND OF THE CHEST08/04/2024 12:12 pm COMPARISON: CT 08/03/2024 HISTORY: ORDERING SYSTEM PROVIDED HISTORY: Reason for Exam: left lung to determine size of pleural effusion, FINDINGS: There is a moderate to large simple appearing left pleural effusion. Collapse left lung is also seen. No pleural effusion is seen on the right side. IMPRESSION: Moderate to large left pleural effusion as seen on CT. Interpreted by: Jerrod Chamberlain MD Preliminary Report By: Jerrod Chamberlain MD Electronically signed By Jerrod Chamberlain MD Dictated Date: 08/04/2024 12:44:36 PM Prelim Date: 08/04/2024 12:45:25 PM Sign Date: 08/04/2024 12:45:25 PM Ordering Provider: GABRIELLA MONTAGUE Normal [facility] .Auto Diffon 08-03-2024 Basophil, Absolute 0.0 10 3/mcL Normal 0.0-0.2 [facility] Comment on above: Performed By: #### M RSAPCR #### [address] [address] Basophils/100 WBC (Bld) 0.2 % Normal 0.0-2.5 [facility] Comment on above: Performed By: #### M RSAPCR #### [address] [address] Eosinophil, Absolute 0.0 10 3/mcL Normal 0.0-0.7 [facility] Comment on above: Performed By: #### M RSAPCR #### [address] [address] Eosinophils/100 WBC (Bld) 0.0 % Normal 0.0-7.0 [facility] Comment on above: Performed By: #### M RSAPCR #### [address] [address] Lymphocyte, Absolute 1.1 10 3/mcL Normal 0.9-4.3 [facility] Comment on above: Performed By: #### M RSAPCR #### [address] [address] Lymphocytes/100 WBC (Bld) 10.7 % Low 20.0-40.0 [facility] Comment on above: Performed By: #### M RSAPCR #### [address] [address] Monocyte, Absolute 1.0 10 3/mcL Normal 0.1-1.4 [facility] Comment on above: Performed By: #### M RSAPCR #### [address] [address] Monocytes/100 WBC (Bld) 9.9 % Normal 2.0-13.0 [facility] Comment on above: Performed By: #### M RSAPCR #### [address] [address] Neutrophils/100 WBC (Bld) 79.2 % High 50.0-75.0 [facility] Comment on above: Performed By: #### M RSAPCR #### [address] [address] .GFRon 08-03-2024 GFR 100 ml/min/1.73sqm Normal [facility] Comment on above: Result Comment: GFR Population mean for , Non- Americans Ages 20-29 = 116 mL/min/1.73 sq.m. Ages 30-39 = 107 mL/min/1.73 sq.m. Ages 40-49 = 99 mL/min/1.73 sq.m. Ages 50-59 = 93 mL/min/1.73 sq.m. Ages 60-69 = 85 mL/min/1.73 sq.m. Ages 70+ = 75 mL/min/1.73 sq.m. Chronic Kidney Disease: Less than 60 mL/min/1.73 square meters End Stage Renal Disease: Less than 15 mL/min/1.73 square meters Performed By: #### M RSAPCR #### [place] [address] GFR Non- 82 ml/min/1.73sqm Normal [facility] Comment on above: Result Comment: GFR Population mean for , Non- Americans Ages 20-29 = 116 mL/min/1.73 sq.m. Ages 30-39 = 107 mL/min/1.73 sq.m. Ages 40-49 = 99 mL/min/1.73 sq.m. Ages 50-59 = 93 mL/min/1.73 sq.m. Ages 60-69 = 85 mL/min/1.73 sq.m. Ages 70+ = 75 mL/min/1.73 sq.m. Chronic Kidney Disease: Less than 60 mL/min/1.73 square meters End Stage Renal Disease: Less than 15 mL/min/1.73 square meters Performed By: #### M RSAPCR #### [address] [address] .MDWon 08-03-2024 Monocyte Distribution Width 17.97 Normal 0.00-20.00 [facility] Comment on above: Result Comment: For ED adult patients suspected of sepsis, MDW<=20.0 does not rule out sepsis or risk of sepsis Performed By: #### M RSAPCR #### [address] [address] .NEUABSon 08-03-2024 Neutrophil, Absolute 8.0 10 3/mcL Normal 2.3-8.1 [facility] Comment on above: Performed By: #### M RSAPCR #### [address] [address] BMPon 08-03-2024 BUN/Creatinine Ratio 22 ratio Normal 7-27 [facility] Comment on above: Performed By: #### M RSAPCR #### [place] [id number] Calcium [Mass/Vol] 8.9 mg/dL Normal 8.4-10.2 [facility] Comment on above: Performed By: #### M RSAPCR #### [place] [address] Chloride [Moles/Vol] 104 mmol/L Normal 98-107 [facility] Comment on above: Performed By: #### M RSAPCR #### [place] [id number] CO2 [Moles/Vol] 29 mmol/L Normal 22-29 [facility] Comment on above: Performed By: #### M RSAPCR #### [place] [address] Creatinine [Mass/Vol] 0.77 mg/dL Normal 0.55-1.02 [facility] Comment on above: Result Comment: Test ing performed on Siemens Dimension EXL analyzer using a modified kinetic Maylin technique. Performed By: #### M RSAPCR #### [place] [id number] Electrolyte Balance 8.0 mEq/L Normal 4.0-15.0 [facility] Comment on above: Performed By: #### M RSAPCR #### [place] [id number] Glucose [Mass/Vol] 106 mg/dL High 70-105 [facility] Comment on above: Performed By: #### M RSAPCR #### [address] [address] Potassium [Moles/Vol] 4.0 mmol/L Normal 3.5-5.1 [facility] Comment on above: Performed By: #### M RSAPCR #### [address] [address] Sodium [Moles/Vol] 141 mmol/L Normal 136-145 [facility] Comment on above: Performed By: #### M RSAPCR #### [place] [id number] Urea nitrogen [Mass/Vol] 17 mg/dL Normal 7-18 [facility] Comment on above: Performed By: #### M RSAPCR #### [place] [id number] CBCon 08-03-2024 Erythrocyte distribution width (RBC) [Ratio] 23.6 % High 11.5-15.5 [facility] Comment on above: Performed By: #### M RSAPCR #### [place] [id number] Hematocrit (Bld) [Volume fraction] 32.2 % Low 34.0-46.0 [facility] Comment on above: Performed By: #### M RSAPCR #### [place] [id number] Hgb 10.9 G/dL Low 12.0-16.0 [facility] Comment on above: Performed By: #### M RSAPCR #### [address] [address] MCH (RBC) [Entitic mass] 31.6 pg Normal 27.0-33.0 [facility] Comment on above: Performed By: #### M RSAPCR #### [place] [id number] MCHC 33.8 G/dL Normal 32.0-36.0 [facility] Comment on above: Performed By: #### M RSAPCR #### [place] [id number] MCV (RBC) [Entitic vol] 93.5 fL Normal 80.0-99.0 [facility] Comment on above: Performed By: #### M RSAPCR #### [address] [address] Platelet 192 10 3/mcL Normal 150-450 [facility] Comment on above: Performed By: #### M RSAPCR #### [place] [id number] Platelet mean volume (Bld) [Entitic vol] 8.3 fL Normal 6.6-10.5 [facility] Comment on above: Performed By: #### M RSAPCR #### [place] [address] RBC 3.44 10 6/mcL Low 4.10-5.30 [facility] Comment on above: Performed By: #### M RSAPCR #### [place] [id number] WBC 10.1 10 3/mcL Normal 4.5-10.8 [facility] Comment on above: Performed By: #### M RSAPCR #### [place] [address] CT ANGIOGRAPHY CHEST W/CONTR Argenis 08-03-2024 CT ANGIOGRAPHY CHEST W/CONTRAST ORIGINAL EXAMINATION: CTA OF THE CHEST 08/03/2024 9:55 pm TECHNIQUE: CTA of the chest was performed after the administration of intravenous contrast. Multiplanar reformatted images are provided for review. MIP images are provided for review. Automated exposure control, iterative reconstruction, and/or weight based adjustment of the mA/kV was utilized to reduce the radiation dose to as low as reasonably achievable. 3D surface rendering or volume rendering reconstructions were performed. COMPARISON: CTA chest 05/17/2024 HISTORY: ORDERING SYSTEM PROVIDED HISTORY: Reason for Exam: SOB, tachycardia, malignancy FINDINGS: Pulmonary Arteries: There is suboptimal bolus timing of the IV contrast. There is no pulmonary embolus of the bilateral main pulmonary arteries or proximal lobar arteries. The distal subsegmental pulmonary arteries are not well evaluated. Mediastinum: Aorta is normal in caliber. Esophagus is normal in caliber. There are few small mediastinal nodes. The heart is mildly enlarged without pericardial effusion. Lungs/pleura: There is interval development of a moderate left pleural effusion. There is moderate consolidation versus atelectasis of left lower lobe. There is subsegmental atelectasis at inferior lingula. The right lung is clear. Upper Abdomen: There is small volume ascites within the abdomen and pelvis. There is diffuse hypoattenuation of the liver compatible with steatosis. Correlation with clinical findings may be useful. Soft Tissues/Bones: No acute bone or soft tissue abnormality. IMPRESSION: 1. Suboptimal bolus timing of the IV contrast. No pulmonary embolus of the bilateral main pulmonary arteries or proximal lobar arteries. The distal subsegmental pulmonary arteries are not well evaluated. 2. Interval development of a moderate left pleural effusion. 3. Moderate consolidation versus atelectasis of left lower lobe. 4. Small volume ascites within the abdomen and pelvis. 5. Hepatic steatosis. Correlation with clinical findings may be useful. Interpreted by: Mello Lucero Preliminary Report By: Mello Lucero Electronically signed By Mello Lucero Dictated Date: 08/03/2024 10:09:27 PM Prelim Date: 08/03/2024 10:20:02 PM Sign Date: 08/03/2024 10:20:02 PM Ordering Provider: JOEY DE DIOS Normal [facility] CVFLURVon 08-03-2024 FLU A PCR Negative Normal Negative [facility] Comment on above: Performed By: #### C VFLURV #### [place] [address] FLU B PCR Negative Normal Negative [facility] Comment on above: Performed By: #### C VFLURV #### [place] [address] RSV PCR Negative Normal Negative [facility] Comment on above: Performed By: #### C VFLURV #### [place] [address] SARS-CoV-2 (COVID-19) RNA YESSICA+probe Ql (Unsp spec) Negative Normal Negative [facility] Comment on above: Result Comment: Resu lts from the Xpert Xpress CoV-2/Flu/RSV plus test should be correlated with the clinical history, epidemiological data, and other data available to the clinical evaluating the patient. Performance of the Xpert Xpress CoV-2/Flu/RSV plus test has only been established in nasopharyngeal swab specimen. Erroneous test results might occur from improper specimen collection, failure to follow the recommended sample collection, handling and storage procedures, technical error, or sample mix-up. False negative results may occur if a virus is present at a level below the analytical limit of detection. Viral nucleic acid may persist in vivo, independent of virus viability. Detection of analyte target(s) does not imply that the corresponding virus(es) are infectious or are the causative agents for clinical symptoms. Recent patient exposure to FluMist or other live attenuated influenza vaccines may cause inaccurate positive results. Performed By: #### C VFLURV #### [address] [address] DIMERon 08-03-2024 D-Dimer 2958 ng/mL D-DU High 0-230 [facility] Comment on above: Result Comment: Resu lts reported in D-DU ng/mL. Positive for D-dimer. A positive D-Dimer may occur in the following: DVT, PE, DIC, Trauma, Cancer, Sepsis, , Rheumatoid arthritis, Myocardial infarction and Cirrhosis. The presence of Rheumatoid Factor and HAMA (human mouse antibody) produces an overestimation of test results. The result of the D-Dimer test should be evaluated in the context of all the clinical and laboratory data available. In those instances where the laboratory result does not agree with the clinical evaluation, additional tests should be performed accordingly. If the D-Dimer result is used to exclude DVT or PE, the recommended cutoff value is less than 230 ng/mL. The D-Dimer result should not be used alone to rule in DVT/PE, but should be used in conjunction with a clinical pretest probability (PTP)assessment model to exclude venous thromboembolism (VTE) in outpatients suspected of deep venous thrombosis (DVT) and pulmonary embolism (PE). Performed By: #### D SHADE #### [address] [address] LABORATORYOrdered By: SYSTEM SYSTEM on 08-03-2024 Fibrin D-dimer DDU (PPP) [Mass/Vol] 2958 ng/mL D-DU High 0 - 230 ng/mL D-DU AO [facility] SS Comment on above: Result Comment: Resu lts reported in D-DU ng/mL. Positive for D-dimer. A positive D-Dimer may occur in the following: DVT, PE, DIC, Trauma, Cancer, Sepsis, , Rheumatoid arthritis, Myocardial infarction and Cirrhosis. The presence of Rheumatoid Factor and HAMA (human mouse antibody) produces an overestimation of test results. Interpretive Data: T he result of the D-Dimer test should be evaluated in the context of all the clinical and laboratory data available. In those instances where the laboratory result does not agree with the clinical evaluation, additional tests should be performed accordingly. If the D-Dimer result is used to exclude DVT or PE, the recommended cutoff value is less than 230 ng/mL. The D-Dimer result should not be used alone to rule in DVT/PE, but should be used in conjunction with a clinical pretest probability (PTP)assessment model to exclude venous thromboembolism (VTE) in outpatients suspected of deep venous thrombosis (DVT) and pulmonary embolism (PE). Basophils (Bld) [#/Vol] 0.0 103/mcL Normal 0.0 - 0.2 10^3/mcL AO Workflow SS Basophils/100 WBC (Bld) 0.2 % Normal 0.0 - 2.5 % AO Workflow SS Calcium [Mass/Vol] 8.9 mg/dL Normal 8.4 - 10. 2 mg/dL AO ADM SS Chloride [Moles/Vol] 104 mmol/L Normal 98 - 10 7 mmol/L AO ADM SS CO2 [Moles/Vol] 29 mmol/L Normal 22 - 29 mmol/L AO ADM SS Creatinine [Mass/Vol] 0.77 mg/dL Normal 0.55 - 1.02 mg/dL AO ADM SS Comment on above: Interpretive Data: T esting performed on Siemens Dimension EXL analyzer using a modified kinetic Maylin technique. Electrolyte Balance 8.0 mEq/L Normal 4.0 - 15 .0 mEq/L AO ADM SS Eosinophil, Absolute 0.0 103/mcL Normal 0.0 - 0 .7 10^3/mcL AO Workflow SS Eosinophils/100 WBC (Bld) 0.0 % Normal 0.0 - 7.0 % AO Workflow SS Erythrocyte distribution width (RBC) [Ratio] 23.6 % High 11.5 - 15.5 % AO Workflow SS GFR/1.73 sq M.predicted among blacks MDRD (S/P/Bld) [Vol rate/Area] 100 ml/min/1.73sqm Invalid Interpretation Code AO Chemistry S Comment on above: Interpretive Data: GFR Population mean for , Non- Americans Ages 20-29 = 116 mL/min/1.73 sq.m. Ages 30-39 = 107 mL/min/1.73 sq.m. Ages 40-49 = 99 mL/min/1.73 sq.m. Ages 50-59 = 93 mL/min/1.73 sq.m. Ages 60-69 = 85 mL/min/1.73 sq.m. Ages 70+ = 75 mL/min/1.73 sq.m. Chronic Kidney Disease: Less than 60 mL/min/1.73 square meters End Stage Renal Disease: Less than 15 mL/min/1.73 square meters GFR/1.73 sq M.predicted among non-blacks MDRD (S/P/Bld) [Vol rate/Area] 82 ml/min/1.73sqm Invalid Interpretation Code AO Chemistry S Comment on above: Interpretive Data: GFR Population mean for , Non- Americans Ages 20-29 = 116 mL/min/1.73 sq.m. Ages 30-39 = 107 mL/min/1.73 sq.m. Ages 40-49 = 99 mL/min/1.73 sq.m. Ages 50-59 = 93 mL/min/1.73 sq.m. Ages 60-69 = 85 mL/min/1.73 sq.m. Ages 70+ = 75 mL/min/1.73 sq.m. Chronic Kidney Disease: Less than 60 mL/min/1.73 square meters End Stage Renal Disease: Less than 15 mL/min/1.73 square meters Glucose [Mass/Vol] 106 mg/dL High 70 - 105 mg/dL AO ADM SS Hematocrit (Bld) [Volume fraction] 32.2 % Low 34.0 - 46.0 % AO Workflow SS Hemoglobin (Bld) [Mass/Vol] 10.9 G/dL Low 12.0 - 16.0 G/dL AO Workflow SS Lymphocytes (Bld) [#/Vol] 1.1 103/mcL Normal 0.9 - 4.3 10^3/mcL AO Workflow SS Lymphocytes/100 WBC (Bld) 10.7 % Low 20.0 - 40.0 % AO Workflow SS MCH (RBC) [Entitic mass] 31.6 pg Normal 27.0 - 33.0 pg AO Workflow SS MCHC 33.8 G/dL Normal 32.0 - 36.0 G/dL AO Workflow SS MCV (RBC) [Entitic vol] 93.5 fL Normal 80.0 - 99.0 fL AO Workflow SS Monocyte distribution width Auto (Bld) [Entitic vol] 17.97 1 Normal 0.00 - 20.00 AO Workflow SS Comment on above: Result Comment: For ED adult patients suspected of sepsis, MDW<=20.0 does not rule out sepsis or risk of sepsis Monocytes (Bld) [#/Vol] 1.0 103/mcL Normal 0.1 - 1.4 10^3/mcL AO Workflow SS Monocytes/100 WBC (Bld) 9.9 % Normal 2.0 - 13.0 % AO Workflow SS Neutrophils (Bld) [#/Vol] 8.0 103/mcL Normal 2.3 - 8.1 10^3/mcL AO Workflow SS Neutrophils/100 WBC (Bld) 79.2 % High 50.0 - 75.0 % AO Workflow SS Platelet mean volume (Bld) [Entitic vol] 8.3 fL Normal 6.6 - 10.5 fL AO Workflow SS Platelets (Bld) [#/Vol] 192 103/mcL Normal 150 - 450 10^3/mcL AO Workflow SS Potassium [Moles/Vol] 4.0 mmol/L Normal 3.5 - 5.1 mmol/L AO ADM SS RBC (Bld) [#/Vol] 3.44 106/mcL Low 4.10 - 5.3 0 10^6/mcL AO Workflow SS Sodium [Moles/Vol] 141 mmol/L Normal 136 - 145 mmol/L AO ADM SS Urea nitrogen [Mass/Vol] 17 mg/dL Normal 7 - 18 mg/dL AO ADM SS Urea nitrogen/Creatinine [Mass ratio] 22 ratio Normal 7 - 27 ratio AO ADM SS WBC (Bld) [#/Vol] 10.1 103/mcL Normal 4.5 - 10.8 10^3/mcL AO Workflow SS LABORATORYOrdered By: Lorenza Jeronimo on 08-03-2024 FLUAV RNA YESSICA+probe Ql (Resp) Negative (08/03/24 8:31 PM) Normal Negative AO Auto Urine SS FLUBV RNA YESSICA+probe Ql (Resp) Negative (08/03/24 8:31 PM) Normal Negative AO Auto Urine SS RSV RNA YESSICA+probe Ql (Resp) Negative (08/03/24 8:31 PM) Normal Negative AO Auto Urine SS SARS-CoV-2 (COVID-19) RNA YESSICA+probe Ql (Resp) Negative 6 (08/03/24 8:31 PM) Normal Negative AO Auto Urine SS Comment on above: Interpretive Data: R esults from the Xpert Xpress CoV-2/Flu/RSV plus test should be correlated with the clinical history, epidemiological data, and other data available to the clinical evaluating the patient. Performance of the Xpert Xpress CoV-2/Flu/RSV plus test has only been established in nasopharyngeal swab specimen. Erroneous test results might occur from improper specimen collection, failure to follow the recommended sample collection, handling and storage procedures, technical error, or sample mix-up. False negative results may occur if a virus is present at a level below the analytical limit of detection. Viral nucleic acid may persist in vivo, independent of virus viability. Detection of analyte target(s) does not imply that the corresponding virus(es) are infectious or are the causative agents for clinical symptoms. Recent patient exposure to FluMist or other live attenuated influenza vaccines may cause inaccurate positive results. LABORATORYOrdered By: Italo Benoit on 08-03-2024 M. pneumoniae IgM IA Ql (S) Negative 7 (08/03/24 8:31 PM) Normal AH Man [facility] SS Comment on above: Interpretive Data: I NTERPRETATION OF MYCOPLASMA IgM: Negative: IgM to M. pneumoniae Absent, or at levels below the assay limit of detection. Positive: IgM to M. pneumoniae Present. Invalid: Test results are invalid due to invalid internal control. Assay was performed in duplicate. Repeat testing is suggested if clinically indicated. XR CHEST 2 VIEWSon XR CHEST 2 VIEWS ORIGINAL EXAMINATION: TWO XRAY VIEWS OF THE CHEST 08/03/2024 8:56 pm COMPARISON: 05/17/2024 HISTORY: ORDERING SYSTEM PROVIDED HISTORY: Reason for Exam: cough FINDINGS: There is a right chest wall port with its tip at the superior cavoatrial junction. The cardiomediastinal silhouette appears normal. There is a left pleural effusion with adjacent atelectasis and/or pneumonia. There is no evidence of pneumothorax. No acute fracture is identified. IMPRESSION: Left pleural effusion with adjacent atelectasis and/or pneumonia. Interpreted by: Neo Aguilar Preliminary Report By: Neo Aguilar Electronically signed By Neo Aguilar Dictated Date: 08/03/2024 9:24:24 PM Prelim Date: 08/03/2024 9:24:56 PM Sign Date: 08/03/2024 9:24:56 PM Ordering Provider: JOEY DE DIOS [facility] CBC W/Diff, Automatedon 11- Anisocytosis Ql (Bld) 2+ Normal [facility] Comment on above: Order Comment: PT RE QUESTED VENOUS DRAW Performed By: #### L 100.0100, L501.5200, L500.4050 #### [facility] [address] [place], [address] DOHLE BODIES 1+ Normal [facility] Comment on above: Order Comment: PT RE QUESTED VENOUS DRAW Performed By: #### L 100.0100, L501.5200, L500.4050 #### [facility] [address] [place], [address] MACROCYTOSIS 1+ Normal [facility] Comment on above: Order Comment: PT RE QUESTED VENOUS DRAW Performed By: #### L 100.0100, L501.5200, L500.4050 #### [facility] [address] [place], [address] OVALOCYTE 1+ Normal [facility] Comment on above: Order Comment: PT RE QUESTED VENOUS DRAW Performed By: #### L 100.0100, L501.5200, L500.4050 #### [facility] [address] [place], [address] PLT EST SLT DEC Normal ADEQ [facility] Comment on above: Order Comment: PT RE QUESTED VENOUS DRAW Performed By: #### L 100.0100, L501.5200, L500.4050 #### [facility] [address] [place], [address] POLYCHROMASIA 1+ Normal [facility] Comment on above: Order Comment: PT RE QUESTED VENOUS DRAW Performed By: #### L 100.0100, L501.5200, L500.4050 #### [facility] [address] [place], [address] SMEAR COMMENT SCANNED Normal [facility] Comment on above: Order Comment: PT RE QUESTED VENOUS DRAW Performed By: #### L 100.0100, L501.5200, L500.4050 #### [facility] [address] [place], [address] TOXIC GRAN 2+ Normal [facility] Comment on above: Order Comment: PT RE QUESTED VENOUS DRAW Performed By: #### L 100.0100, L501.5200, L500.4050 #### [facility] [address] [place], [address] Comprehensive Metabolic Prof [facility] 07-29-2024 Albumin [Mass/Vol] 3.5 g/dL Normal 3.2-5.0 [facility] Comment on above: Order Comment: PT RE QUESTED VENOUS DRAW Performed By: #### L 100.0100, L501.5200, L500.4050 #### [facility] [address] [place], [address] Albumin/Globulin [Mass ratio] 1.1 {ratio} Normal 0.9-2.4 [facility] Comment on above: Order Comment: PT RE QUESTED VENOUS DRAW Performed By: #### L 100.0100, L501.5200, L500.4050 #### [facility] [address] [place], [address] ALK P 87 U/L Normal 45-117 [facility] Comment on above: Order Comment: PT RE QUESTED VENOUS DRAW Performed By: #### L 100.0100, L501.5200, L500.4050 #### [facility] [address] [place], [address] ALT [Catalytic activity/Vol] 33 U/L Normal 13-56 [facility] Comment on above: Order Comment: PT RE QUESTED VENOUS DRAW Performed By: #### L 100.0100, L501.5200, L500.4050 #### [facility] [address] [place], [address] AST [Catalytic activity/Vol] 20 U/L Normal 15-37 [facility] Comment on above: Order Comment: PT RE QUESTED VENOUS DRAW Performed By: #### L 100.0100, L501.5200, L500.4050 #### [facility] [address] [place], [address] Bilirubin [Mass/Vol] 0.60 mg/dL Normal 0.20-1.00 [facility] Comment on above: Order Comment: PT RE QUESTED VENOUS DRAW Result Comment: For patients on eltrombopag therapy, use of Dimension [place] TBIL is not recommended. Performed By: #### L 100.0100, L501.5200, L500.4050 #### [facility] [address] [place], [address] BUN/CRE 23.3 RATIO High 10-20 [facility] Comment on above: Order Comment: PT RE QUESTED VENOUS DRAW Performed By: #### L 100.0100, L501.5200, L500.4050 #### [facility] [address] [place], [address] CA,Total 8.9 mg/dL Normal 8.5-10.1 [facility] Comment on above: Order Comment: PT RE QUESTED VENOUS DRAW Performed By: #### L 100.0100, L501.5200, L500.4050 #### [facility] [address] [place], [address] Chloride [Moles/Vol] 108 mmol/L High 98-107 [facility] Comment on above: Order Comment: PT RE QUESTED VENOUS DRAW Performed By: #### L 100.0100, L501.5200, L500.4050 #### [facility] [address] [place], [address] CO2 [Moles/Vol] 27.0 mmol/L Normal 21.0-32.0 [facility] Comment on above: Order Comment: PT RE QUESTED VENOUS DRAW Performed By: #### L 100.0100, L501.5200, L500.4050 #### [facility] [address] [place], [address] Creatinine [Mass/Vol] 0.69 mg/dL Normal 0.55-1.02 [facility] Comment on above: Order Comment: PT RE QUESTED VENOUS DRAW Result Comment: The validity of the calculated GFR GFRAA in patients over 70 years has not been determined. Clinical correlation is essential. Performed By: #### L 100.0100, L501.5200, L500.4050 #### [facility] [address] [place], [address] ECRCL 141.49 ml/min Normal [facility] Comment on above: Order Comment: PT RE QUESTED VENOUS DRAW Performed By: #### L 100.0100, L501.5200, L500.4050 #### [facility] [address] [place], [address] EST GFR - AA 120 mL/min Normal >60 [facility] Comment on above: Order Comment: PT RE QUESTED VENOUS DRAW Result Comment: Afri can [place] GFR Calc Performed By: #### L 100.0100, L501.5200, L500.4050 #### [facility] [address] [place], [address] GAP 4 Low 5-15 [facility] Comment on above: Order Comment: PT RE QUESTED VENOUS DRAW Performed By: #### L 100.0100, L501.5200, L500.4050 #### [facility] [address] [place], [address] GFR/1.73 sq M.predicted among non-blacks MDRD (S/P/Bld) [Vol rate/Area] 99 mL/min/{1.73_m2} Normal >60 [facility] Comment on above: Order Comment: PT RE QUESTED VENOUS DRAW Result Comment: Non- GFR Calc Performed By: #### L 100.0100, L501.5200, L500.4050 #### [facility] [address] [place], [address] Globulin (S) [Mass/Vol] 3.1 g/dL Normal 2.2-4.2 [facility] Comment on above: Order Comment: PT RE QUESTED VENOUS DRAW Performed By: #### L 100.0100, L501.5200, L500.4050 #### [facility] [address] [place], [address] Glucose [Mass/Vol] 111 mg/dL High 74-106 [facility] Comment on above: Order Comment: PT RE QUESTED VENOUS DRAW Result Comment: Fast ing Glucose result from 100 to 125 mg/dL suggests IMPAIRED HOMEOSTASIS per A.D.A. criteria. Performed By: #### L 100.0100, L501.5200, L500.4050 #### [facility] [address] [place], [address] Potassium [Moles/Vol] 4.0 mmol/L Normal 3.5-5.1 [facility] Comment on above: Order Comment: PT RE QUESTED VENOUS DRAW Performed By: #### L 100.0100, L501.5200, L500.4050 #### [facility] [address] [place], [address] Sodium [Moles/Vol] 139 mmol/L Normal 136-145 [facility] Comment on above: Order Comment: PT RE QUESTED VENOUS DRAW Performed By: #### L 100.0100, L501.5200, L500.4050 #### [facility] [address] [place], [address] T PROT 6.6 g/dL Normal 6.4-8.2 [facility] Comment on above: Order Comment: PT RE QUESTED VENOUS DRAW Performed By: #### L 100.0100, L501.5200, L500.4050 #### [facility] [address] [place], [address] Urea nitrogen [Mass/Vol] 16 mg/dL Normal 7-18 [facility] Comment on above: Order Comment: PT RE QUESTED VENOUS DRAW Performed By: #### L 100.0100, L501.5200, L500.4050 #### [facility] [address] [place], [address] Dohle bodies detectionOrdere d By: Ellen Dowling on 07-29-2024 Dohle body LM Ql (Bld) 1+ [facility] Dohle body LM Ql (Bld)Ordere d By: Ellen Dowling on 07-29-2024 Dohle Bodies 1+ [facility] Magnesiumon 07-29-2024 Magnesium [Mass/Vol] 2.2 mg/dL Normal 1.6-2.6 [facility] Comment on above: Order Comment: PT RE QUESTED VENOUS DRAW Performed By: #### L 100.0100, L501.5200, L500.4050 #### [facility] [address] [place], [address] Oncology Visit Reporton 07-17 Oncology Visit Report [facility] [address] [place] [address] OFFICE VISIT Date of Service: 07/29/24 1258 MR#: [id number] Acct: [id number] Name: JESSICA ALARCON Rep #: [id number] : 1980 From: Ellen Nitesh PEN TESTER PEN TESTER -C Age/Sex: 43/F [place] [facility] [place] Status: Signed HPI Subjective Date of Service 07/29/24 Chief Complaint Ovarian cancer on treatment History of Present Illness 43-year-old female who was diagnosed with Asherman's syndrome for several years and in 2023 experienced increasing abdominal and pelvic pain and a CT scan of the abdomen and pelvis revealed a pelvic mass and an elevated CA125 of 76. February 2024 she had genetic testing ([employer]) that showed no known pathogenic variants. 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 March 2024 next generation sequence, tissue: No potentially actionable pathogenic variants, tumor mutational burden was low (3.2M/MB) April 22, 2024 received 1 cycle of carboplatin Taxol but developed an anaphylactic reaction to Taxol. May 13, 2024 received the second cycle with carboplatin and Taxotere replace Taxol. This was complicated with excessive GI toxicity requiring hospitalization May 19-2023, she was neutropenic but not febrile. CA-125 05/11/24 446 04/20/24 181 03/25/24 76 Interval History The patient is presenting to clinic accompanied by sister for a planned toxicity assessment. She began cycle 5 carboplatin/docetaxel on 07/15/24. Overall tolerated well. Mucositis was more severe with this cycle, limited to < 1 week. She was able to eat and drink despite mucositis. Took Zofran BID days 2-7 scheduled. No nausea. Reports diarrhea on days 7 8, estimates 6 episodes each of those days. Resolved with loperamide. Cites eating some heavily seasoned food, which she believes exacerbated the GI upset. C/o dry cough, and bilat ankle edema and mild abd bloating since day 1. + fatigue. Able to perform self care and instrumental ADLs. C/o BLE pain, occurs after standing for long periods of time. + nail changes, dips where they are growing out denies nail tenderness or breaking Appetite good, PO fluid intake described as adequate. 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 carcinomatosis Ovarian cancer Acute superficial venous thrombosis of lower extremity Anxiety and depression Carcinoma of ovary, stage 3 Surgical History History of appendectomy History of colposcopy H/O LEEP History of hysterectomy Family History Aunt Breast cancer Cancer Father's side Aunt Breast cancer Great aunt Social History Smoking Status: Never smoker alcohol intake: current alcohol intake frequency: holidays/special occasions only substance use type: does not use ROS ROS Narrative Negative except as documented in the interval HPI Intake Vital Signs 06/24/24 08:26 07/29/24 12:58 Height 5 ft 6 in 5 ft 6 in Weight: 269 lb BMI 43.4 BP 124/83 H Blood Pressure Location Lt brachial Position Sitting Respiration 14 Pulse 98 Pulse Source Monitor Temp 98.2 F Temperature Source Temporal Artery Pulse Oximetry (%) 95 Oxygen Delivery Method room air Intake Accompanied by: Sister Is patient in pain?: Yes (burning BLE) Pain scale (1-10): 3 Allergies paclitaxel (From Taxol) Allergy (Severe, Verified 07/29/24 13:01) Anaphylaxis Medications ???Medication ???Instructions ???Recorded ???Confirmed ???Type oxycodone-acetaminophen 5 mg-325 1 - 2 tab (1 - 2 x 5-325 mg) PO 04/15/14 07/29/24 Rx mg tablet Q4H PRN PRN Moderate Pain #20 TABLETS MAGIC MOUTH WASH (BMX) 180 mL ml PO #180 mL 05/14/24 07/29/24 History suspension albuterol sulfate 90 mcg/actuation 1 inh inhalation ONCE 05/14/24 07/29/24 History aerosol inhaler fluoxetine 20 mg tablet 20 mg PO DAILY 05/14/24 07/29/24 History loratadine 10 mg tablet (Claritin) 10 mg PO DAILY 05/14/24 07/29/24 History dicyclomine 20 mg tablet 20 mg PO .QID PRN 06/04/24 07/29/24 History loperamide 2 mg capsule 2 mg PO Q6H PRN 06/04/24 07/29/24 History omeprazole 20 mg tablet,delayed 20 mg PO QDAY 06/04/24 07/29/24 History release ondansetron 8 mg disintegrating 8 m (more content not included)... Normal [facility] Ovalocyte detectionOrdered B y: Ellen HarrisonNitesh on 07-29-2024 Ovalocytes LM Ql (Bld) 1+ [facility] Ovalocytes LM Ql (Bld)Ordere d By: Ellen Nitesh on 07-29-2024 Ovalocytes 1+ [facility] Toxic granules LM Ql (Bld)Or dered By: Ellen Nitesh on 07-29-2024 Toxic Granulation 2+ [facility] Toxic leukocyte granulation detectionOrdered By: Ellen Nitesh on 07-29-2024 Toxic granules LM Ql (Bld) 2+ [facility] Bilirubin Test strip Ql (U)O rdered By: Ellen HarrisonNitesh on 07-15-2024 Bilirubin Ql (U) Negative Negative [facility] Glucose Ql (U)Ordered By: Ty ra Nitesh on 07-15-2024 Glucose (U) [Mass/Vol] 1000 mg/dL High Normal [facility] Ketones Test strip Ql (U)Ord ered By: Ellen Nitesh on 07-15-2024 Ketones Ql (U) 15 mg/dl High Negative [facility] Nitrite Test strip Ql (U)Ord ered By: Ellen Nitesh on 07-15-2024 Nitrite Ql (U) Negative Negative [facility] Protein Test strip Ql (U)Ord ered By: Ellen Nitesh on 07-15-2024 Protein Ql (U) 30 mg/dl High Negative [facility] Urine blood detectionOrdered By: Ellendaquan HarrisonNitesh on 07-15-2024 Urine Occult Blood 10 /ul High Negative [facility] Urine clarityOrdered By: Deb Harrisonlabach on 07-15-2024 Clarity (U) Clear Clear [facility] Urine color determinationOrd ered By: Ellen HarrisonNitesh on 07-15-2024 Color (U) Yellow Yellow [facility] Urine cultureOrdered By: Deb Dowling on 10-30-2024 Bacteria identified Cx Nom (U) Streptococcus agalactiae (B) Abnormal [facility] Bacteria identified Cx Nom (U) Positive Abnormal [facility] Urine glucose detectionOrder ed By: Ellne Nitesh on 07-15-2024 Glucose Ql (U) 1000 mg/dl High Normal [facility] Urine leukocyte esterase det ection by dipstickOrdered By: Ellen Nitesh on 07-15-2024 Leukocyte esterase Test strip Ql (U) 25 /ul High Negative [facility] Urine pHOrdered By: Ellen Anselmo labach on 07-15-2024 pH (U) 6.0 [pH] 5.0 - 8.0 [facility] Urine specific gravity measu rementOrdered By: Ellen Nitesh on 07-15-2024 Specific gravity (U) [Rel density] 1.025 1.002-1.030 [facility] Urine urobilinogen measureme ntOrdered By: Ellen Nitesh on 07-15-2024 Urobilinogen Ql (U) Normal mg/dl Normal [facility] Urobilinogen Ql (U)Ordered B y: Ellen Nitesh on 07-15-2024 Urine Urobilinogen Normal mg/dl Normal [facility] Blood band neutrophil count as percentage of total leukocytesOrdered By: Ellen Nitesh on 07-01-2024 Band form neutrophils/100 WBC (Bld) 7 % High 0-5 [facility] Blood eosinophils/100 leukoc ytesOrdered By: Ellen Nitesh on 07-01-2024 Eosinophils/100 WBC (Bld) 4 % 0-5 [facility] Blood lymphocytes/100 leukoc ytesOrdered By: Ellen Nitesh on 07-01-2024 Lymphocytes/100 WBC (Bld) 42 % High 19-41 [facility] Blood metamyelocytes/100 kirill kocytesOrdered By: Ellen Nitesh on 07-01-2024 Metamyelocytes/100 WBC (Bld) 1 % 0-1 [facility] Blood monocytes/100 leukocyt esOrdered By: Ellen Nitesh on 07-01-2024 Monocytes/100 WBC (Bld) 13 % High 0-10 [facility] Blood promyelocytes/100 leuk ocytesOrdered By: Ellen Nitesh on 07-01-2024 Promyelocytes/100 WBC (Bld) 4 % High 0-0 [facility] Blood segmented neutrophils/ 100 leukocytesOrdered By: Ellen Dowling on 07-01-2024 Segmented neutrophils/100 WBC (Bld) 26 % Low 47-70 [facility] Cells counted Molgen (Bld/Ti ss) [#]Ordered By: Ellen Dowling on 07-01-2024 Differential Total Cells Counted 100 MANUAL DIFF [facility] Epithelial cells.squamous LM Ql (Urine sed)Ordered By: Ellen Dowling on 07-01-2024 Epithelial cells.squamous LM.HPF (Urine sed) [#/Area] 0 /[HPF] 5-10 [facility] Microscopic analysis of urin e for red blood cells (RBC)Ordered By: Ellen Dowling on 07-01-2024 Microscopic analysis of urine for red blood cells (RBC) 50-100 SEEN /hpf 0-5 [facility] Urine RBC 50-100 SEEN /hpf 0-5 [facility] Mucus LM Ql (Urine sed)Order ed By: Ellen Dowling on 07-01-2024 Mucus Ql (Urine sed) 0 SEEN /hpf [facility] Myelocyte %Ordered By: Ellen Dowling on 07-01-2024 Myelocytes/100 WBC (Bld) 3 % High 0-0 [facility] Pathologist review Rohan (Unsp spec) [Interp]Ordered By: Ellen Dowling on 07-01-2024 Differential Pathologist's Review Reviewed [facility] Comment on above: Previous reported re sult: Jeanna lópez Edited by: ARNULFO on 07/02/24:0949Leukopenia and neutropenia.Neutrophilic left shift.Clinical correlation necessary.Romulo Ricardo M.D. 07/02/24 AMENDED REPORT 07/02/24 0949 PATH REV previously reported as: Jeanna lópez Promyelocytes/100 WBC (Bld)O rdered By: Ellen Dowling on 07-01-2024 Promyelocytes % 4 % High 0-0 [facility] Reactive lymphocyte countOrd ered By: Ellen Dowling on 07-01-2024 Reactive Lymphocytes RARE [facility] Review by pathologistOrdered By: Ellen Dowling on 07-01-2024 Pathologist review Rohan (Unsp spec) [Interp] Reviewed [facility] Comment on above: Previous reported re sult: Jeanna lópez Edited by: CISCO on 07/02/24:0949Leukopenia and neutropenia.Neutrophilic left shift.Clinical correlation necessary.Romulo Ricardo M.D. 07/02/24 AMENDED REPORT 07/02/24 0949 PATH REV previously reported as: Jeanna lópez Segmented neutrophils/100 WB C (Bld)Ordered By: Ellen Dowling on 07-01-2024 Neutrophils/100 WBC (Bld) 26 % Low 47-70 [facility] Squamous epithelial cells de tection in urine sediment by light microscopyOrdered By: Ellen Dowling on 07-01-2024 Epithelial cells.squamous LM Ql (Urine sed) 0-5 SEEN /hpf 5-10 [facility] Total cell countOrdered By: Ellen Dowling on 07-01-2024 Cells counted Molgen (Bld/Tiss) [#] 100 MANUAL DIFF [facility] Urine cultureOrdered By: Deb Dowling on 07-01-2024 Bacteria identified Cx Nom (U) Presumptive E. coli Abnormal [facility] Urine sediment bacteria coun t by microscopy (number/high power field)Ordered By: Ellen Dowling on 07-01-2024 Bacteria LM.HPF (Urine sed) [#/Area] 1 /[HPF] None Seen [facility] White blood cell countOrdere d By: Ellen Dowling on 07-01-2024 Urine WBC >100 SEEN /hpf 0-5 [facility] White blood cell count >100 SEEN /hpf 0-5 [facility] Erythrocyte morphology asses smentOrdered By: Ellen Dowling on 06-10-2024 RBC morphology finding Nom (Bld) N CHROM NORMAL NORM C&C [facility] RBC morphology finding Nom ( Bld)Ordered By: Ellen Dowling on 06-10-2024 Red Blood Cell Morphology N CHROM NORMAL NORM C&C [facility] .GFRon 05-20-2024 GFR >60 Normal [facility] ([place]) Comment on above: Result Comment: GFR Population mean for , Non- Americans Ages 20-29 = 116 mL/min/1.73 sq.m. Ages 30-39 = 107 mL/min/1.73 sq.m. Ages 40-49 = 99 mL/min/1.73 sq.m. Ages 50-59 = 93 mL/min/1.73 sq.m. Ages 60-69 = 85 mL/min/1.73 sq.m. Ages 70+ = 75 mL/min/1.73 sq.m. Chronic Kidney Disease: Less than 60 mL/min/1.73 square meters End Stage Renal Disease: Less than 15 mL/min/1.73 square meters Performed By: #### G FR, BMP, MG ####[address] [address] GFR Non- >60 Normal [facility] ([place]) Comment on above: Result Comment: GFR Population mean for , Non- Americans Ages 20-29 = 116 mL/min/1.73 sq.m. Ages 30-39 = 107 mL/min/1.73 sq.m. Ages 40-49 = 99 mL/min/1.73 sq.m. Ages 50-59 = 93 mL/min/1.73 sq.m. Ages 60-69 = 85 mL/min/1.73 sq.m. Ages 70+ = 75 mL/min/1.73 sq.m. Chronic Kidney Disease: Less than 60 mL/min/1.73 square meters End Stage Renal Disease: Less than 15 mL/min/1.73 square meters Performed By: #### G FR, BMP, MG ####[address] [address] BMPon 05-20-2024 BUN/Creatinine Ratio 12.7 ratio Normal 10.0-22.0 [facility] ([place]) Comment on above: Performed By: #### G FR, BMP, MG ####[address] [address] Calcium [Mass/Vol] 8.6 mg/dL Low 8.7-10.4 [facility] ([place]) Comment on above: Performed By: #### G FR, BMP, MG ####[address] [address] Chloride [Moles/Vol] 108 mmol/L Normal 98-110 [facility] ([place]) Comment on above: Performed By: #### RASHEL DELACRUZ MG ####[place] [address] CO2 [Moles/Vol] 30 mmol/L Normal 22-32 [facility] ([place]) Comment on above: Performed By: #### RASHEL DELACRUZ, MG ####[place] [address] Creatinine [Mass/Vol] 0.63 mg/dL Normal 0.50-1.20 [facility] ([place]) Comment on above: Result Comment: Test ing performed on IMVU analyzer using enzymatic creatinine methodology. Performed By: #### RASHEL DELACRUZ MG ####[place] [address] Electrolyte Balance 5.0 mEq/L Normal 4.0-15.0 [facility] ([place]) Comment on above: Performed By: #### RASHEL DELACRUZ MG ####[place] [address] Glucose [Mass/Vol] 97 mg/dL Normal 70-110 [facility] ([place]) Comment on above: Performed By: #### RASHEL DELACRUZ MG ####[place] [address] Potassium [Moles/Vol] 3.6 mmol/L Normal 3.5-5.0 [facility] ([place]) Comment on above: Performed By: #### RASHEL DELACRUZ, MG ####[place] [address] Sodium [Moles/Vol] 143 mmol/L Normal 136-145 [facility] ([place]) Comment on above: Performed By: #### RASHEL DELACRUZ, MG ####[address] [address] Urea nitrogen [Mass/Vol] 8.0 mg/dL Normal 8.0-22.0 [facility] ([place]) Comment on above: Performed By: #### RASHEL DELACRUZ, MG ####[place] [id number] LABORATORYOrdered By: SYSTEM SYSTEM on 05-20-2024 Calcium [Mass/Vol] 8.6 mg/dL Low 8.7 - 10. 4 mg/dL AH ADM SS Chloride [Moles/Vol] 108 mmol/L Normal 98 - 11 0 mEq/L AH ADM SS CO2 [Moles/Vol] 30 mmol/L Normal 22 - 32 mEq/L AH ADM SS Creatinine [Mass/Vol] 0.63 mg/dL Normal 0.50 - 1.20 mg/dL AH ADM SS Comment on above: Interpretive Data: T esting performed on IMVU analyzer using enzymatic creatinine methodology. Electrolyte Balance 5.0 mEq/L Normal 4.0 - 15 .0 mEq/L AH ADM SS GFR/1.73 sq M.predicted among blacks MDRD (S/P/Bld) [Vol rate/Area] ml/min/1.73sqm Invalid Interpretation Code [employer] Chemistry S Comment on above: Interpretive Data: GFR Population mean for , Non- Americans Ages 20-29 = 116 mL/min/1.73 sq.m. Ages 30-39 = 107 mL/min/1.73 sq.m. Ages 40-49 = 99 mL/min/1.73 sq.m. Ages 50-59 = 93 mL/min/1.73 sq.m. Ages 60-69 = 85 mL/min/1.73 sq.m. Ages 70+ = 75 mL/min/1.73 sq.m. Chronic Kidney Disease: Less than 60 mL/min/1.73 square meters End Stage Renal Disease: Less than 15 mL/min/1.73 square meters GFR/1.73 sq M.predicted among non-blacks MDRD (S/P/Bld) [Vol rate/Area] ml/min/1.73sqm Invalid Interpretation Code [employer] Chemistry S Comment on above: Interpretive Data: GFR Population mean for , Non- Americans Ages 20-29 = 116 mL/min/1.73 sq.m. Ages 30-39 = 107 mL/min/1.73 sq.m. Ages 40-49 = 99 mL/min/1.73 sq.m. Ages 50-59 = 93 mL/min/1.73 sq.m. Ages 60-69 = 85 mL/min/1.73 sq.m. Ages 70+ = 75 mL/min/1.73 sq.m. Chronic Kidney Disease: Less than 60 mL/min/1.73 square meters End Stage Renal Disease: Less than 15 mL/min/1.73 square meters Glucose [Mass/Vol] 97 mg/dL Normal 70 - 110 mg/dL AH ADM SS Magnesium [Mass/Vol] 1.7 mg/dL Normal 1.6 - 2 .4 mg/dL AH ADM SS Potassium [Moles/Vol] 3.6 mmol/L Normal 3.5 - 5.0 mEq/L AH ADM SS Sodium [Moles/Vol] 143 mmol/L Normal 136 - 145 mEq/L ADM SS Urea nitrogen [Mass/Vol] 8.0 mg/dL Normal 8.0 - 22.0 mg/dL AH ADM SS Urea nitrogen/Creatinine [Mass ratio] 12.7 ratio Normal 10.0 - 22.0 ratio AH ADM SS MGon 05-20-2024 Magnesium [Mass/Vol] 1.7 mg/dL Normal 1.6-2.4 [facility] ([place]) Comment on above: Performed By: #### G FR, BMP, MG ####[address] [address] .GFRon 05-19-2024 GFR >60 Normal [facility] ([place]) Comment on above: Result Comment: GFR Population mean for , Non- Americans Ages 20-29 = 116 mL/min/1.73 sq.m. Ages 30-39 = 107 mL/min/1.73 sq.m. Ages 40-49 = 99 mL/min/1.73 sq.m. Ages 50-59 = 93 mL/min/1.73 sq.m. Ages 60-69 = 85 mL/min/1.73 sq.m. Ages 70+ = 75 mL/min/1.73 sq.m. Chronic Kidney Disease: Less than 60 mL/min/1.73 square meters End Stage Renal Disease: Less than 15 mL/min/1.73 square meters Performed By: #### A BSGEL, ABOGEL #### [address] [address] GFR Non- >60 Normal [facility] ([place]) Comment on above: Result Comment: GFR Population mean for , Non- Americans Ages 20-29 = 116 mL/min/1.73 sq.m. Ages 30-39 = 107 mL/min/1.73 sq.m. Ages 40-49 = 99 mL/min/1.73 sq.m. Ages 50-59 = 93 mL/min/1.73 sq.m. Ages 60-69 = 85 mL/min/1.73 sq.m. Ages 70+ = 75 mL/min/1.73 sq.m. Chronic Kidney Disease: Less than 60 mL/min/1.73 square meters End Stage Renal Disease: Less than 15 mL/min/1.73 square meters Performed By: #### A BOBBI MABRY #### [address] [address] .Manual Diffon 05-19-2024 Bands 4.0 % Normal 0.0-5.0 [facility] ([place]) Comment on above: Performed By: #### A BOBBI MABRY #### [address] [address] Basophil %, Manual 1.0 % Normal 0.0-2.5 [facility] ([place]) Comment on above: Performed By: #### A BOBBI MABRY #### [address] [address] Basophil, Abs Manual 0.0 10 3/mcL Normal 0.0-0.3 [facility] ([place]) Comment on above: Performed By: #### A BOBBI MABRY #### [address] [address] Eosinophil %, Manual 1.0 % Normal 0.0-6.0 [facility] ([place]) Comment on above: Performed By: #### A BOBIB MABRY #### [address] [address] Eosinophil, Abs Manual 0.0 10 3/mcL Normal 0.0-0.7 [facility] ([place]) Comment on above: Performed By: #### A BOBBI MABRY #### [place] [id number] Lymphocyte %, Manual 60.0 % High 20.0-40.0 [facility] ([place]) Comment on above: Performed By: #### A BOBBI MABRY #### [address] [address] Lymphocyte, Abs Manual 0.7 10 3/mcL Low 0.9-4.3 [facility] ([place]) Comment on above: Performed By: #### A BOBBI MABRY #### [address] [address] Monocyte %, Manual 0.0 % Low 2.0-13.0 [facility] ([place]) Comment on above: Performed By: #### A BOBBI MABRY #### [address] [address] Monocyte, Abs Manual 0.0 10 3/mcL Low 0.1-1.4 [facility] ([place]) Comment on above: Performed By: #### A BOBBI MABRY #### [address] [address] Neutrophil %, Manual 34.0 % Low 50.0-75.0 [facility] ([place]) Comment on above: Performed By: #### A BOBBI MABRY #### [address] [address] Neutrophil, Abs Manual 0.4 10 3/mcL Criticall y abnormal 2.3-8.1 [facility] ([place]) Comment on above: Performed By: #### A BOBBI MABRY #### [address] [address] Nucleated RBC 0.0 /100 WBC Normal [facility] ([place]) Comment on above: Performed By: #### A CLOTILDE ABOGEL #### [address] [address] .Morphon 05-19-2024 Platelet Estimate Slt Decreased Normal [facility] ([place]) Comment on above: Performed By: #### A BOBBI MABRY #### [address] [address] RBC morphology finding Nom (Bld) Normal Normal [facility] ([place]) Comment on above: Performed By: #### A BOBBI MABRY #### [place] [id number] CBCon 05-19-2024 Erythrocyte distribution width (RBC) [Ratio] 14.0 % Normal 11.5-15.5 [facility] ([place]) Comment on above: Performed By: #### U A #### [place] [id number] Hematocrit (Bld) [Volume fraction] 29.0 % Low 34.0-46.0 [facility] ([place]) Comment on above: Performed By: #### U A #### [place] [address] Hgb 9.9 G/dL Low 12.0-16.0 [facility] ([place]) Comment on above: Performed By: #### U A #### [place] [address] MCH (RBC) [Entitic mass] 30.1 pg Normal 27.0-33.0 [facility] ([place]) Comment on above: Performed By: #### U A #### [place] [address] MCHC 34.1 G/dL Normal 32.0-36.0 [facility] ([place]) Comment on above: Performed By: #### U A #### [place] [address] MCV (RBC) [Entitic vol] 88.1 fL Normal 80.0-99.0 [facility] ([place]) Comment on above: Performed By: #### U A #### [place] [address] Platelet 122 10 3/mcL Low 150-450 [facility] ([place]) Comment on above: Performed By: #### U A #### [place] [id number] Platelet mean volume (Bld) [Entitic vol] 9.4 fL Normal 6.6-10.5 [facility] ([place]) Comment on above: Performed By: #### U A #### [address] [address] RBC 3.30 10 6/mcL Low 4.10-5.30 [facility] ([place]) Comment on above: Performed By: #### U A #### [place] [id number] WBC 1.2 10 3/mcL Low 4.5-10.8 [facility] ([place]) Comment on above: Performed By: #### U A #### [address] [address] CMPon 05-19-2024 Albumin Level 3.0 G/dL Low 3.2-4.8 [facility] ([place]) Comment on above: Performed By: #### U A #### [place] [id number] Albumin/Globulin [Mass ratio] 1.2 {ratio} Normal 0.9-1.6 [facility] ([place]) Comment on above: Performed By: #### U A #### [place] [id number] ALP [Catalytic activity/Vol] 64 U/L Normal 38-126 [facility] ([place]) Comment on above: Performed By: #### U A #### [place] [id number] ALT [Catalytic activity/Vol] 73 U/L High 10-49 [facility] ([place]) Comment on above: Performed By: #### U A #### [place] [id number] AST [Catalytic activity/Vol] 54 U/L High 8-34 [facility] ([place]) Comment on above: Performed By: #### U A #### [place] [id number] Bili Total 0.50 mg/dL Normal 0.20-1.20 [facility] ([place]) Comment on above: Result Comment: Use of this assay is not recommended for patients undergoing treatment with eltrombopag due to the potential for falsely elevated results. Performed By: #### U A #### [place] [id number] BUN/Creatinine Ratio 18.8 ratio Normal 10.0-22.0 [facility] ([place]) Comment on above: Performed By: #### U A #### [address] [address] Calcium [Mass/Vol] 8.5 mg/dL Low 8.7-10.4 [facility] ([place]) Comment on above: Performed By: #### U A #### [address] [address] Chloride [Moles/Vol] 109 mmol/L Normal 98-110 [facility] ([place]) Comment on above: Performed By: #### U A #### [address] [address] CO2 [Moles/Vol] 29 mmol/L Normal 22-32 [facility] ([place]) Comment on above: Performed By: #### U A #### [place] [id number] Creatinine [Mass/Vol] 0.64 mg/dL Normal 0.50-1.20 [facility] ([place]) Comment on above: Result Comment: Test ing performed on IMVU analyzer using enzymatic creatinine methodology. Performed By: #### U A #### [address] [address] Electrolyte Balance 5.0 mEq/L Normal 4.0-15.0 [facility] ([place]) Comment on above: Performed By: #### U A #### [address] [address] Globulin 2.5 G/dL Normal 1.5-3.8 [facility] ([place]) Comment on above: Performed By: #### U A #### [address] [address] Glucose [Mass/Vol] 104 mg/dL Normal 70-110 [facility] ([place]) Comment on above: Performed By: #### U A #### [address] [address] Potassium [Moles/Vol] 3.8 mmol/L Normal 3.5-5.0 [facility] ([place]) Comment on above: Performed By: #### U A #### [facility] [address] [place] [address] Sodium [Moles/Vol] 143 mmol/L Normal 136-145 [facility] ([place]) Comment on above: Performed By: #### U A #### [facility] [address] [place] [address] Total Protein 5.5 G/dL Low 5.7-8.2 [facility] ([place]) Comment on above: Result Comment: No te - New Reference Range in effect 20 Performed By: #### U A #### [address] [address] Urea nitrogen [Mass/Vol] 12.0 mg/dL Normal 8.0-22.0 [facility] ([place]) Comment on above: Performed By: #### U A #### [place] [address] LABORATORYOrdered By: SYSTEM SYSTEM on 05-19-2024 Albumin BCP dye [Mass/Vol] 3.0 G/dL Low 3.2 - 4.8 G/dL ADM SS Albumin/Globulin [Mass ratio] 1.2 {ratio} Normal 0.9 - 1.6 ratio AH ADM SS ALP [Catalytic activity/Vol] 64 U/L Normal 38 - 126 U/L AH ADM SS ALT No additional P-5'-P [Catalytic activity/Vol] 73 U/L High 10 - 49 U/L ADM SS AST [Catalytic activity/Vol] 54 U/L High 8 - 34 U/L AH ADM SS Band form neutrophils/100 WBC (Bld) 4.0 % Normal 0.0 - 5.0 % Workflow SS Basophils (Bld) [#/Vol] 0.0 103/mcL Normal 0.0 - 0.3 10^3/mcL AH Workflow SS Basophils/100 WBC (Bld) 1.0 % Normal 0.0 - 2.5 % AH Workflow SS Bilirubin [Mass/Vol] 0.50 mg/dL Normal 0.20 - 1.20 mg/dL AH ADM SS Comment on above: Interpretive Data: U se of this assay is not recommended for patients undergoing treatment with eltrombopag due to the potential for falsely elevated results. Calcium [Mass/Vol] 8.5 mg/dL Low 8.7 - 10. 4 mg/dL ADM SS Chloride [Moles/Vol] 109 mmol/L Normal 98 - 11 0 mEq/L ADM SS CO2 [Moles/Vol] 29 mmol/L Normal 22 - 32 mEq/L ADM SS Creatinine [Mass/Vol] 0.64 mg/dL Normal 0.50 - 1.20 mg/dL ADM SS Comment on above: Interpretive Data: T esting performed on IMVU analyzer using enzymatic creatinine methodology. Electrolyte Balance 5.0 mEq/L Normal 4.0 - 15 .0 mEq/L ADM SS Eosinophils (Bld) [#/Vol] 0.0 103/mcL Normal 0.0 - 0.7 10^3/mcL Workflow SS Eosinophils/100 WBC (Bld) 1.0 % Normal 0.0 - 6.0 % Workflow SS Erythrocyte distribution width (RBC) [Ratio] 14.0 % Normal 11.5 - 15.5 % Workflow SS GFR/1.73 sq M.predicted among blacks MDRD (S/P/Bld) [Vol rate/Area] ml/min/1.73sqm Invalid Interpretation Code [employer] Chemistry S Comment on above: Interpretive Data: GFR Population mean for , Non- Americans Ages 20-29 = 116 mL/min/1.73 sq.m. Ages 30-39 = 107 mL/min/1.73 sq.m. Ages 40-49 = 99 mL/min/1.73 sq.m. Ages 50-59 = 93 mL/min/1.73 sq.m. Ages 60-69 = 85 mL/min/1.73 sq.m. Ages 70+ = 75 mL/min/1.73 sq.m. Chronic Kidney Disease: Less than 60 mL/min/1.73 square meters End Stage Renal Disease: Less than 15 mL/min/1.73 square meters GFR/1.73 sq M.predicted among non-blacks MDRD (S/P/Bld) [Vol rate/Area] ml/min/1.73sqm Invalid Interpretation Code [employer] Chemistry S Comment on above: Interpretive Data: GFR Population mean for , Non- Americans Ages 20-29 = 116 mL/min/1.73 sq.m. Ages 30-39 = 107 mL/min/1.73 sq.m. Ages 40-49 = 99 mL/min/1.73 sq.m. Ages 50-59 = 93 mL/min/1.73 sq.m. Ages 60-69 = 85 mL/min/1.73 sq.m. Ages 70+ = 75 mL/min/1.73 sq.m. Chronic Kidney Disease: Less than 60 mL/min/1.73 square meters End Stage Renal Disease: Less than 15 mL/min/1.73 square meters Globulin 2.5 G/dL Normal 1.5 - 3.8 G/dL AH ADM SS Glucose [Mass/Vol] 104 mg/dL Normal 70 - 110 mg/dL AH ADM SS Hematocrit (Bld) [Volume fraction] 29.0 % Low 34.0 - 46.0 % AH Workflow SS Hemoglobin (Bld) [Mass/Vol] 9.9 G/dL Low 12.0 - 16.0 G/dL AH Workflow SS Lymphocytes (Bld) [#/Vol] 0.7 103/mcL Low 0.9 - 4.3 10^3/mcL AH Workflow SS Lymphocytes/100 WBC (Bld) 60.0 % High 20.0 - 40.0 % AH Workflow SS Magnesium [Mass/Vol] 1.8 mg/dL Normal 1.6 - 2 .4 mg/dL AH ADM SS MCH (RBC) [Entitic mass] 30.1 pg Normal 27.0 - 33.0 pg AH Workflow SS MCHC 34.1 G/dL Normal 32.0 - 36.0 G/dL AH Workflow SS MCV (RBC) [Entitic vol] 88.1 fL Normal 80.0 - 99.0 fL AH Workflow SS Monocytes (Bld) [#/Vol] 0.0 103/mcL Low 0.1 - 1.4 10^3/mcL AH Workflow SS Monocytes/100 WBC (Bld) 0.0 % Low 2.0 - 13.0 % AH Workflow SS Neutrophils (Bld) [#/Vol] 0.4 103/mcL Invalid Interpretation Code 2.3 - 8.1 10^3/mcL AH Workflow SS Neutrophils/100 WBC (Bld) 34.0 % Low 50.0 - 75.0 % AH Workflow SS Nucleated RBC 0.0 /100 WBC Invalid Interpretation Code AH Workflow SS Platelet mean volume (Bld) [Entitic vol] 9.4 fL Normal 6.6 - 10.5 fL AH Workflow SS Platelets (Bld) [#/Vol] 122 103/mcL Low 150 - 450 10^3/mcL AH Workflow SS Platelets LM Ql (Bld) Slt Decreased *NA* (05/19/24 4:45 AM) Invalid Interpretation Code AH Workflow SS Potassium [Moles/Vol] 3.8 mmol/L Normal 3.5 - 5.0 mEq/L AH ADM SS Protein [Mass/Vol] 5.5 G/dL Low 5.7 - 8.2 G/dL AH ADM SS Comment on above: Interpretive Data: * *Note - New Reference Range in effect 20 RBC (Bld) [#/Vol] 3.30 106/mcL Low 4.10 - 5.3 0 10^6/mcL AH Workflow SS RBC morphology finding Nom (Bld) Normal *NA* (05/19/24 4:45 AM) Invalid Interpretation Code AH Workflow SS Sodium [Moles/Vol] 143 mmol/L Normal 136 - 145 mEq/L ADM SS Urea nitrogen [Mass/Vol] 12.0 mg/dL Normal 8.0 - 22.0 mg/dL ADM SS Urea nitrogen/Creatinine [Mass ratio] 18.8 ratio Normal 10.0 - 22.0 ratio AH ADM SS WBC (Bld) [#/Vol] 1.2 103/mcL Low 4.5 - 10.8 10^3/mcL Workflow SS MGon 05-19-2024 Magnesium [Mass/Vol] 1.8 mg/dL Normal 1.6-2.4 [facility] ([place]) Comment on above: Performed By: #### U A #### [address] [address] .Auto Diffon 05-18-2024 Basophil, Absolute 0.0 10 3/mcL Normal 0.0-0.3 [facility] ([place]) Comment on above: Performed By: #### A TEJAL, ADIFF, CBC, CMP, GFR ####[address] [address] Basophils/100 WBC (Bld) 1.1 % Normal 0.0-2.5 [facility] ([place]) Comment on above: Performed By: #### A TEJAL, ADIFF, CBC, CMP, GFR ####[address] [address] Eosinophil, Absolute 0.0 10 3/mcL Normal 0.0-0.7 [facility] ([place]) Comment on above: Performed By: #### A TEJAL, ADIFF, CBC, CMP, GFR ####[address] [address] Eosinophils/100 WBC (Bld) 0.6 % Normal 0.0-6.0 [facility] ([place]) Comment on above: Performed By: #### A TEJAL, ADIFF, CBC, CMP, GFR ####[address] [address] Lymphocyte, Absolute 0.7 10 3/mcL Low 0.9-4.3 [facility] ([place]) Comment on above: Performed By: #### A TEJAL, ADIFF, CBC, CMP, GFR ####[address] [address] Lymphocytes/100 WBC (Bld) 27.1 % Normal 20.0-40.0 [facility] ([place]) Comment on above: Performed By: #### A TEJAL, ADIFF, CBC, CMP, GFR ####[address] [address] Monocyte, Absolute 0.1 10 3/mcL Normal 0.1-1.4 [facility] ([place]) Comment on above: Performed By: #### A TEJAL, ADIFF, CBC, CMP, GFR ####[address] [address] Monocytes/100 WBC (Bld) 3.3 % Normal 2.0-13.0 [facility] ([place]) Comment on above: Performed By: #### A TEJAL, ADIFF, CBC, CMP, GFR ####[address] [address] Neutrophils/100 WBC (Bld) 67.9 % Normal 50.0-75.0 [facility] ([place]) Comment on above: Performed By: #### A TEJAL, ADIFF, CBC, CMP, GFR ####[address] [address] .GFRon 05-18-2024 GFR >60 Normal [facility] ([place]) Comment on above: Result Comment: GFR Population mean for , Non- Americans Ages 20-29 = 116 mL/min/1.73 sq.m. Ages 30-39 = 107 mL/min/1.73 sq.m. Ages 40-49 = 99 mL/min/1.73 sq.m. Ages 50-59 = 93 mL/min/1.73 sq.m. Ages 60-69 = 85 mL/min/1.73 sq.m. Ages 70+ = 75 mL/min/1.73 sq.m. Chronic Kidney Disease: Less than 60 mL/min/1.73 square meters End Stage Renal Disease: Less than 15 mL/min/1.73 square meters Performed By: #### A TEJAL, ADIFF, CBC, CMP, GFR ####[place] [address] GFR Non- >60 Normal [facility] ([place]) Comment on above: Result Comment: GFR Population mean for , Non- Americans Ages 20-29 = 116 mL/min/1.73 sq.m. Ages 30-39 = 107 mL/min/1.73 sq.m. Ages 40-49 = 99 mL/min/1.73 sq.m. Ages 50-59 = 93 mL/min/1.73 sq.m. Ages 60-69 = 85 mL/min/1.73 sq.m. Ages 70+ = 75 mL/min/1.73 sq.m. Chronic Kidney Disease: Less than 60 mL/min/1.73 square meters End Stage Renal Disease: Less than 15 mL/min/1.73 square meters Performed By: #### A TEJAL, ADIFF, CBC, CMP, GFR ####[address] [address] .NEUABSon 05-18-2024 Neutrophil, Absolute 1.8 10 3/mcL Low 2.3-8.1 [facility] ([place]) Comment on above: Performed By: #### A TEJAL, ADIFF, CBC, CMP, GFR ####[place] [address] CBCon 05-18-2024 Erythrocyte distribution width (RBC) [Ratio] 14.1 % Normal 11.5-15.5 [facility] ([place]) Comment on above: Performed By: #### A TEJAL, ADIFF, CBC, CMP, GFR ####[place] [address] Hematocrit (Bld) [Volume fraction] 32.5 % Low 34.0-46.0 [facility] ([place]) Comment on above: Performed By: #### A TEJAL, ADIFF, CBC, CMP, GFR ####[place] [address] Hgb 11.0 G/dL Low 12.0-16.0 [facility] ([place]) Comment on above: Performed By: #### A TEJAL, ADIFF, CBC, CMP, GFR ####[place] [address] MCH (RBC) [Entitic mass] 30.0 pg Normal 27.0-33.0 [facility] ([place]) Comment on above: Performed By: #### A TEJAL, ADIFF, CBC, CMP, GFR ####[place] [address] MCHC 33.9 G/dL Normal 32.0-36.0 [facility] ([place]) Comment on above: Performed By: #### A TEJAL, ADIFF, CBC, CMP, GFR ####[place] [address] MCV (RBC) [Entitic vol] 88.4 fL Normal 80.0-99.0 [facility] ([place]) Comment on above: Performed By: #### A TEJAL, ADIFF, CBC, CMP, GFR ####[place] [address] Platelet 135 10 3/mcL Low 150-450 [facility] ([place]) Comment on above: Performed By: #### A TEJAL, ADIFF, CBC, CMP, GFR ####[place] [address] Platelet mean volume (Bld) [Entitic vol] 9.4 fL Normal 6.6-10.5 [facility] ([place]) Comment on above: Performed By: #### A TEJAL, ADIFF, CBC, CMP, GFR ####[place] [address] RBC 3.68 10 6/mcL Low 4.10-5.30 [facility] ([place]) Comment on above: Performed By: #### A TEJAL, ADIFF, CBC, CMP, GFR ####[place] [address] WBC 2.7 10 3/mcL Low 4.5-10.8 [facility] ([place]) Comment on above: Performed By: #### A TEJAL, ADIFF, CBC, CMP, GFR ####[place] [address] CDIFPCRon 05-18-2024 Clostridium difficile PCR Negative Normal Negative [facility] ([place]) Comment on above: Result Comment: Note s [id number] Performed By: #### C DIFPCR, STGIPCR ####[place] [address] Clostridium difficile PCR Int Normal [facility] ([place]) Comment on above: Result Comment: No t cdB gene DNA detected. Negative test results may occur from improper collection, handling or storage of specimen, technical error, or extremely low levels of target below the limit of detection of the assay. See Below Performed By: #### C DIFPCR, STGIPCR ####[place] [address] CMPon 05-18-2024 Albumin Level 3.5 G/dL Normal 3.2-4.8 [facility] ([place]) Comment on above: Performed By: #### A TEJAL, ADIFF, CBC, CMP, GFR ####[place] [address] Albumin/Globulin [Mass ratio] 1.4 {ratio} Normal 0.9-1.6 [facility] ([place]) Comment on above: Performed By: #### A TEJAL, ADIFF, CBC, CMP, GFR ####[id number] [place] [address] ALP [Catalytic activity/Vol] 65 U/L Normal 38-126 [facility] ([place]) Comment on above: Performed By: #### A TEJAL, ADIFF, CBC, CMP, GFR ####[address] [address] ALT [Catalytic activity/Vol] 82 U/L High 10-49 [facility] ([place]) Comment on above: Performed By: #### A TEJAL, ADIFF, CBC, CMP, GFR ####[address] [address] AST [Catalytic activity/Vol] 58 U/L High 8-34 [facility] ([place]) Comment on above: Performed By: #### A TEJAL, ADIFF, CBC, CMP, GFR ####[address] [address] Bili Total 0.70 mg/dL Normal 0.20-1.20 [facility] ([place]) Comment on above: Result Comment: Use of this assay is not recommended for patients undergoing treatment with eltrombopag due to the potential for falsely elevated results. Performed By: #### A TEJAL, ADIFF, CBC, CMP, GFR ####[place] [address] BUN/Creatinine Ratio 27.5 ratio High 10.0-22.0 [facility] ([place]) Comment on above: Performed By: #### A TEJAL, ADIFF, CBC, CMP, GFR ####[address] [address] Calcium [Mass/Vol] 9.3 mg/dL Normal 8.7-10.4 [facility] ([place]) Comment on above: Performed By: #### A TEJAL, ADIFF, CBC, CMP, GFR ####[address] [address] Chloride [Moles/Vol] 106 mmol/L Normal 98-110 [facility] ([place]) Comment on above: Performed By: #### A TEJAL, ADIFF, CBC, CMP, GFR ####[place] [address] CO2 [Moles/Vol] 30 mmol/L Normal 22-32 [facility] ([place]) Comment on above: Performed By: #### A TEJAL, ADIFF, CBC, CMP, GFR ####[address] [address] Creatinine [Mass/Vol] 0.69 mg/dL Normal 0.50-1.20 [facility] ([place]) Comment on above: Result Comment: Test ing performed on IMVU analyzer using enzymatic creatinine methodology. Performed By: #### A TEJAL, ADIFF, CBC, CMP, GFR ####[address] [address] Electrolyte Balance 4.0 mEq/L Normal 4.0-15.0 [facility] ([place]) Comment on above: Performed By: #### A TEJAL, ADIFF, CBC, CMP, GFR ####[place] [id number] Globulin 2.5 G/dL Normal 1.5-3.8 [facility] ([place]) Comment on above: Performed By: #### A TEJAL, ADIFF, CBC, CMP, GFR ####[place] [address] Glucose [Mass/Vol] 101 mg/dL Normal 70-110 [facility] ([place]) Comment on above: Performed By: #### A TEJAL, ADIFF, CBC, CMP, GFR ####[address] [address] Potassium [Moles/Vol] 4.4 mmol/L Normal 3.5-5.0 [facility] ([place]) Comment on above: Performed By: #### A TEJAL, ADIFF, CBC, CMP, GFR ####[address] [address] Sodium [Moles/Vol] 140 mmol/L Normal 136-145 [facility] ([place]) Comment on above: Performed By: #### A TEJAL, ADIFF, CBC, CMP, GFR ####[place] [address] Total Protein 6.0 G/dL Normal 5.7-8.2 [facility] ([place]) Comment on above: Result Comment: No te - New Reference Range in effect 20 Performed By: #### A TEJAL, ADIFF, CBC, CMP, GFR ####[place] [id number] [place] [address] Urea nitrogen [Mass/Vol] 19.0 mg/dL Normal 8.0-22.0 [facility] ([place]) Comment on above: Performed By: #### A TEJAL, ADIFF, CBC, CMP, GFR ####[place] [id number] [place] [address] LABORATORYOrdered By: Katie Bowie on 05-18-2024 Adenovirus 40+41 DNA YESSICA+non-probe Ql (Stl) Not Detected *NA* (05/18/24 5:02 AM) Invalid Interpretation Code Not Detected AH Auto Microbiology GL SS Astrovirus subtypes 1-8 RNA YESSICA+non-probe Ql (Stl) Not Detected *NA* (05/18/24 5:02 AM) Invalid Interpretation Code Not Detected AH Auto Microbiology GL SS C. cayetanensis DNA YESSICA+non-probe Ql (Stl) Not Detected *NA* (05/18/24 5:02 AM) Invalid Interpretation Code Not Detected AH Auto Microbiology GL SS C. coli+jejuni+upsaliensi s DNA YESSICA+non-probe Ql (Stl) Not Detected *NA* (05/18/24 5:02 AM) Invalid Interpretation Code Not Detected AH Auto Microbiology GL SS Cryptosporidium sp DNA YESSICA+non-probe Ql (Stl) Not Detected *NA* (05/18/24 5:02 AM) Invalid Interpretation Code Not Detected AH Auto Microbiology GL SS E. coli enteroaggregative Bacilio plasmid aggR+aatA genes YESSICA+non-probe Ql (Stl) Not Detected *NA* (05/18/24 5:02 AM) Invalid Interpretation Code Not Detected AH Auto Microbiology GL SS E. coli enteropathogenic eae gene YESSICA+non-probe Ql (Stl) Not Detected *NA* (05/18/24 5:02 AM) Invalid Interpretation Code Not Detected AH Auto Microbiology GL SS E. coli enterotoxigenic ltA+st1a+st1b genes YESSICA+non-probe Ql (Stl) Not Detected *NA* (05/18/24 5:02 AM) Invalid Interpretation Code Not Detected AH Auto Microbiology GL SS E. coli O157 DNA YESSICA+non-probe Ql (Stl) Not Applicable (05/18/24 5:02 AM) Normal Not Detected AH Auto Microbiology GL SS E. coli stx1+stx2 genes YESSICA+non-probe Ql (Stl) Not Detected *NA* (05/18/24 5:02 AM) Invalid Interpretation Code Not Detected AH Auto Microbiology GL SS E. histolytica DNA YESSICA+non-probe Ql (Stl) Not Detected *NA* (05/18/24 5:02 AM) Invalid Interpretation Code Not Detected AH Auto Microbiology GL SS G. lamblia DNA YESSICA+non-probe Ql (Stl) Not Detected *NA* (05/18/24 5:02 AM) Invalid Interpretation Code Not Detected AH Auto Microbiology GL SS Norovirus genogroup I+II RNA YESSICA+non-probe Ql (Stl) See Below Invalid Interpretation Code Not Detected AH Auto Microbiology GL SS Comment on above: Result Comment: T he electric refrigerator preparer of the Stool GI PCR panel has identified an increase of potential false positive results for Norovirus. A Norovirus positive result should correlate with the patient s clinical history and presentation, along with travel history and disease severity. Plesiomonas shigelloides Not Detected *NA* (05/18/24 5:02 AM) Invalid Interpretation Code Not Detected AH Auto Microbiology GL SS Rotavirus A RNA YESSICA+non-probe Ql (Stl) Not Detected *NA* (05/18/24 5:02 AM) Invalid Interpretation Code Not Detected AH Auto Microbiology GL SS S. enterica+bongori DNA YESSCIA+non-probe Ql (Stl) Not Detected *NA* (05/18/24 5:02 AM) Invalid Interpretation Code Not Detected AH Auto Microbiology GL SS Sapovirus genogroups I+II+IV+V RNA YESSICA+non-probe Ql (Stl) Not Detected *NA* (05/18/24 5:02 AM) Invalid Interpretation Code Not Detected AH Auto Microbiology GL SS Shigella species+EIEC invasion plasmid antigen H ipaH gene YESSICA+non-probe Ql (Stl) Not Detected *NA* (05/18/24 5:02 AM) Invalid Interpretation Code Not Detected AH Auto Microbiology GL SS Stool GI Comment See Comment 4 (05/18/24 5:02 AM) Normal AH Auto Microbiology GL SS Comment on above: Interpretive Data: V irus, bacteria, and parasite nucleic acid may persist in vivo independently of organism viability. Negative Film Array GI panel results in the setting of clinical illness compatible with gastroenteritis may be due to infection by pathogens that are not detected by this test. False negatives may occur due to genetic variability in the region targeted by the primers. V. cholerae DNA YESSICA+non-probe Ql (Stl) Not Detected *NA* (05/18/24 5:02 AM) Invalid Interpretation Code Not Detected AH Auto Microbiology GL SS V. cholerae+parahaemolyti cus+vulnificus DNA YESSICA+non-probe Ql (Stl) Not Detected *NA* (05/18/24 5:02 AM) Invalid Interpretation Code Not Detected AH Auto Microbiology GL SS Y. enterocolitica DNA YESSICA+non-probe Ql (Stl) Not Detected *NA* (05/18/24 5:02 AM) Invalid Interpretation Code Not Detected AH Auto Microbiology GL SS LABORATORYOrdered By: Soo Torres on 05-18-2024 Appearance (U) Hazy *ABN* (05/18/24 5:02 AM) Invalid Interpretation Code Clear AH Auto Urine SS Bacteria LM.HPF (Urine sed) [#/Area] 3 /[HPF] Invalid Interpretation Code Negative AH Auto Urine SS Bilirubin Ql (U) Negative (05/18/24 5:02 AM) Normal Neg-Trace AH Auto Urine SS Color (U) Dark Yellow (05/18/24 5:02 AM) Normal AH Auto Urine SS Glucose Test strip (U) [Mass/Vol] Negative Normal Negative AH Auto Urine SS Hemoglobin Auto test strip (U) [Mass/Vol] Negative (05/18/24 5:02 AM) Normal Neg-Trace AH Auto Urine SS Ketones Ql (U) 15 mg/dL Invalid Interpretation Code Neg-Trace AH Auto Urine SS UA Leuk Est Trace *NA* (05/18/24 5:02 AM) Invalid Interpretation Code Negative AH Auto Urine SS UA Mucous 4+ /HPF Normal AH Auto Urine SS UA Nitrite Negative (05/18/24 5:02 AM) Normal Negative AH Auto Urine SS UA pH 6.0 (05/18/24 5:02 AM) Normal 5.0 - 8.0 AH Auto Urine SS UA Protein 30 mg/dL Normal Negative AH Auto Urine SS UA RBC Negative Normal 0-2 AH Auto Urine SS UA Spec Grav >=1.030 *ABN* (05/18/24 5:02 AM) Invalid Interpretation Code 1.006-1.029 AH Auto Urine SS UA Specimen Type Clean Catch (05/18/24 5:02 AM) Normal AH Auto Urine SS UA Squam Epithelial 5-10 /HPF Normal 0-20 AH Au to Urine SS UA Urobilinogen 1.0 E.U./dL Normal 0.2-1.0 AH Auto Urine SS WBC LM.HPF (Urine sed) [#/Area] 5-10 /HPF Invalid Interpretation Code 0-5 AH Auto Urine SS LABORATORYOrdered By: Wyatt Fernández on 05-18-2024 Clostridium difficile PCR Negative 1 (05/18/24 5:02 AM) Normal Negative AH Auto Viro/Sero SS Comment on above: Result Comment: Note s [id number] Clostridium difficile PCR Int No tcdB gene DNA detected. Negative test results may occur from improper collection, handling or storage of specimen, technical error, or extremely low levels of target below the limit of detection of the assay. Invalid Interpretation Code AH Auto Viro/Sero SS LABORATORYOrdered By: [employer] on 05-18-2024 Albumin BCP dye [Mass/Vol] 3.5 G/dL Normal 3.2 - 4.8 G/dL AH ADM SS Albumin/Globulin [Mass ratio] 1.4 {ratio} Normal 0.9 - 1.6 ratio AH ADM SS ALP [Catalytic activity/Vol] 65 U/L Normal 38 - 126 U/L AH ADM SS ALT No additional P-5'-P [Catalytic activity/Vol] 82 U/L High 10 - 49 U/L AH ADM SS AST [Catalytic activity/Vol] 58 U/L High 8 - 34 U/L AH ADM SS Basophils (Bld) [#/Vol] 0.0 103/mcL Normal 0.0 - 0.3 10^3/mcL Workflow SS Basophils/100 WBC (Bld) 1.1 % Normal 0.0 - 2.5 % Workflow SS Bilirubin [Mass/Vol] 0.70 mg/dL Normal 0.20 - 1.20 mg/dL AH ADM SS Comment on above: Interpretive Data: U se of this assay is not recommended for patients undergoing treatment with eltrombopag due to the potential for falsely elevated results. Calcium [Mass/Vol] 9.3 mg/dL Normal 8.7 - 10. 4 mg/dL AH ADM SS Chloride [Moles/Vol] 106 mmol/L Normal 98 - 11 0 mEq/L ADM SS CO2 [Moles/Vol] 30 mmol/L Normal 22 - 32 mEq/L ADM SS Creatinine [Mass/Vol] 0.69 mg/dL Normal 0.50 - 1.20 mg/dL ADM SS Comment on above: Interpretive Data: T esting performed on IMVU analyzer using enzymatic creatinine methodology. Electrolyte Balance 4.0 mEq/L Normal 4.0 - 15 .0 mEq/L ADM SS Eosinophils (Bld) [#/Vol] 0.0 103/mcL Normal 0.0 - 0.7 10^3/mcL Workflow SS Eosinophils/100 WBC (Bld) 0.6 % Normal 0.0 - 6.0 % Workflow SS Erythrocyte distribution width (RBC) [Ratio] 14.1 % Normal 11.5 - 15.5 % Workflow SS GFR/1.73 sq M.predicted among blacks MDRD (S/P/Bld) [Vol rate/Area] ml/min/1.73sqm Invalid Interpretation Code [employer] S Comment on above: Interpretive Data: GFR Population mean for , Non- Americans Ages 20-29 = 116 mL/min/1.73 sq.m. Ages 30-39 = 107 mL/min/1.73 sq.m. Ages 40-49 = 99 mL/min/1.73 sq.m. Ages 50-59 = 93 mL/min/1.73 sq.m. Ages 60-69 = 85 mL/min/1.73 sq.m. Ages 70+ = 75 mL/min/1.73 sq.m. Chronic Kidney Disease: Less than 60 mL/min/1.73 square meters End Stage Renal Disease: Less than 15 mL/min/1.73 square meters GFR/1.73 sq M.predicted among non-blacks MDRD (S/P/Bld) [Vol rate/Area] ml/min/1.73sqm Invalid Interpretation Code [employer] Chemistry S Comment on above: Interpretive Data: GFR Population mean for , Non- Americans Ages 20-29 = 116 mL/min/1.73 sq.m. Ages 30-39 = 107 mL/min/1.73 sq.m. Ages 40-49 = 99 mL/min/1.73 sq.m. Ages 50-59 = 93 mL/min/1.73 sq.m. Ages 60-69 = 85 mL/min/1.73 sq.m. Ages 70+ = 75 mL/min/1.73 sq.m. Chronic Kidney Disease: Less than 60 mL/min/1.73 square meters End Stage Renal Disease: Less than 15 mL/min/1.73 square meters Globulin 2.5 G/dL Normal 1.5 - 3.8 G/dL AH ADM SS Glucose [Mass/Vol] 101 mg/dL Normal 70 - 110 mg/dL AH ADM SS Hematocrit (Bld) [Volume fraction] 32.5 % Low 34.0 - 46.0 % AH Workflow SS Hemoglobin (Bld) [Mass/Vol] 11.0 G/dL Low 12.0 - 16.0 G/dL AH Workflow SS Lymphocytes (Bld) [#/Vol] 0.7 103/mcL Low 0.9 - 4.3 10^3/mcL AH Workflow SS Lymphocytes/100 WBC (Bld) 27.1 % Normal 20.0 - 40.0 % AH Workflow SS MCH (RBC) [Entitic mass] 30.0 pg Normal 27.0 - 33.0 pg AH Workflow SS MCHC 33.9 G/dL Normal 32.0 - 36.0 G/dL AH Workflow SS MCV (RBC) [Entitic vol] 88.4 fL Normal 80.0 - 99.0 fL AH Workflow SS Monocytes (Bld) [#/Vol] 0.1 103/mcL Normal 0.1 - 1.4 10^3/mcL AH Workflow SS Monocytes/100 WBC (Bld) 3.3 % Normal 2.0 - 13.0 % AH Workflow SS Neutrophils (Bld) [#/Vol] 1.8 103/mcL Low 2.3 - 8.1 10^3/mcL AH Workflow SS Neutrophils/100 WBC (Bld) 67.9 % Normal 50.0 - 75.0 % AH Workflow SS Platelet mean volume (Bld) [Entitic vol] 9.4 fL Normal 6.6 - 10.5 fL AH Workflow SS Platelets (Bld) [#/Vol] 135 103/mcL Low 150 - 450 10^3/mcL AH Workflow SS Potassium [Moles/Vol] 4.4 mmol/L Normal 3.5 - 5.0 mEq/L ADM SS Protein [Mass/Vol] 6.0 G/dL Normal 5.7 - 8.2 G/dL ADM SS Comment on above: Interpretive Data: * *Note - New Reference Range in effect 20 RBC (Bld) [#/Vol] 3.68 106/mcL Low 4.10 - 5.3 0 10^6/mcL Workflow SS Sodium [Moles/Vol] 140 mmol/L Normal 136 - 145 mEq/L ADM SS Troponin I.cardiac DL <= 0.01 ng/mL [Mass/Vol] ng/L Normal 0 - 34 ng/L ADM SS Comment on above: Interpretive Data: High Sensitive Troponin I Reference Ranges: Female: 0-34 ng/L Male: 0-54 ng/L Testing performed on TRSB Groupe analyzer using direct chemiluminescent technology. Urea nitrogen [Mass/Vol] 19.0 mg/dL Normal 8.0 - 22.0 mg/dL ADM SS Urea nitrogen/Creatinine [Mass ratio] 27.5 ratio High 10.0 - 22.0 ratio ADM SS WBC (Bld) [#/Vol] 2.7 103/mcL Low 4.5 - 10.8 10^3/mcL Workflow SS No Panel Informationon 05-18 Culture Urine Updated Report: >100,000 cfu/ml Multiple bacterial morphotypes present. Probable Contamination. Suggest recollection if clinically indicated. Including >100,000 cfu/ml Group B Beta Hemolytic Strep (Strep agalactiae) Sensitivity testing is not recommended for one of the following reasons: 1. Established susceptibility patterns are available or 2. Interpretative criteria are not available. [facility] Culture Stool Normal stool nhung present. Negative for stool pathogens at 48 hours. Final report to follow. [facility] Comment on above: Requests for alterna tive pathogens including Yersinia, E. coli 0157, C. difficile toxin, Rotavirus, Giardia and parasites require specific requests. Fecal Leukocytes Microscopy: Fecal Leukocytes Present Fecal leukocytes may be associated with enteroinvasive infection. However, from our data , in only 50% of bacterial GI infections is there evidence of fecal WBC's. [facility] Shiga Toxins 1 and 2 Absence of Shiga to nilsa 1 Absence of Shiga toxin [address] [facility] Comment on above: Testing performed by immunochromatography. STGIPCRon 05-18-2024 Adenovirus F 40/41 Not detected Normal Not Detected [facility] ([place]) Comment on above: Performed By: #### C DIFPCR, STGIPCR ####[place] [address] Astrovirus Not detected Normal Not Detected [facility] ([place]) Comment on above: Performed By: #### C DIFPCR, STGIPCR ####[place] [address] Campy (jejuni/coli/ups) Not detected Normal Not Detected [facility] ([place]) Comment on above: Performed By: #### C DIFPCR, STGIPCR ####[place] [address] Cryptosporidium Not detected Normal Not Detected [facility] ([place]) Comment on above: Performed By: #### C DIFPCR, STGIPCR ####[place] [address] Cyclospora Not detected Normal Not Detected [facility] ([place]) Comment on above: Performed By: #### C DIFPCR, STGIPCR ####[place] [address] E. coli (ETEC) Not detected Normal Not Detected [facility] ([place]) Comment on above: Performed By: #### C DIFPCR, STGIPCR ####[place] [address] E. coli O157 Not Applicable Normal Not Detected [facility] ([place]) Comment on above: Performed By: #### C DIFPCR, STGIPCR ####[place] [address] Entamoeba histolytica Not detected Normal Not Detected [facility] ([place]) Comment on above: Performed By: #### C DIFPCR, STGIPCR ####[place] [address] Enteroaggregative E. coli (EAEC) Not detected Normal Not Detected [facility] ([place]) Comment on above: Performed By: #### C DIFPCR, STGIPCR ####[place] [address] Enteropathogenic E. coli (EPEC) Not detected Normal Not Detected [facility] ([place]) Comment on above: Performed By: #### C DIFPCR, STGIPCR ####[place] [address] Giardia lamblia Not detected Normal Not Detected [facility] ([place]) Comment on above: Performed By: #### C DIFPCR, STGIPCR ####[place] [address] Norovirus GI/GII See Below Normal Not Detected [facility] ([place]) Comment on above: Result Comment: T he electric refrigerator preparer of the Stool GI PCR panel has identified an increase of potential false positive results for Norovirus. A Norovirus positive result should correlate with the patient?s clinical history and presentation, along with travel history and disease severity. Performed By: #### C DIFPCR, STGIPCR ####[place] [address] Plesiomonas shigelloides Not detected Normal Not Detected [facility] ([place]) Comment on above: Performed By: #### C DIFPCR, STGIPCR ####[place] [address] Rotavirus A Not detected Normal Not Detected [facility] ([place]) Comment on above: Performed By: #### C DIFPCR, STGIPCR ####[place] [address] Salmonella species, stool Not detected Normal Not Detected [facility] ([place]) Comment on above: Performed By: #### C DIFPCR, STGIPCR ####[place] [address] Sapovirus I,II,IV,V Not detected Normal Not Detected [facility] ([place]) Comment on above: Performed By: #### C DIFPCR, STGIPCR ####[address] [address] Shig Tox E. coli (STEC) Not detected Normal Not Detected [facility] ([place]) Comment on above: Performed By: #### C DIFPCR, STGIPCR ####[place] [address] Shigella/Enteroinvasiv e E. coli (EIEC) Not detected Normal Not Detected [facility] ([place]) Comment on above: Performed By: #### C DIFPCR, STGIPCR ####[place] [address] Stool GI Comment See Comment Normal [facility] ([place]) Comment on above: Result Comment: Viru s, bacteria, and parasite nucleic acid may persist in vivo independently of organism viability. Negative Film Array GI panel results in the setting of clinical illness compatible with gastroenteritis may be due to infection by pathogens that are not detected by this test. False negatives may occur due to genetic variability in the region targeted by the primers. Performed By: #### C DIFPCR, STGIPCR ####[place] [address] Vibrio cholerae Not detected Normal Not Detected [facility] ([place]) Comment on above: Performed By: #### C DIFPCR, STGIPCR ####[place] [address] Vibrio par/vul/chol Not detected Normal Not Detected [facility] ([place]) Comment on above: Performed By: #### C DIFPCR, STGIPCR ####[place] [address] Yersinia enterocolitica Not detected Normal Not Detected [facility] ([place]) Comment on above: Performed By: #### C DIFPCR, STGIPCR ####[place] [address] TROPHSon 05-18-2024 High Sensitivity Troponin I <3 Normal 0-34 [facility] ([place]) Comment on above: Result Comment: High Sensitive Troponin I Reference Ranges: Female: 0-34 ng/L Male: 0-54 ng/L Testing performed on [employer] Groupe analyzer using direct chemiluminescent technology. Performed By: #### T ROP ####[place] [address] High Sensitivity Troponin I <3 Normal 0-34 [facility] ([place]) Comment on above: Result Comment: High Sensitive Troponin I Reference Ranges: Female: 0-34 ng/L Male: 0-54 ng/L Testing performed on [employer] analyzer using direct chemiluminescent technology. Performed By: #### T ROPHS ####[place] [address] UAon 05-18-2024 Color (U) Dark Yellow Normal [facility] ([place]) Comment on above: Performed By: #### U AMIC, UA ####[place] [address] Glucose (U) [Mass/Vol] Negative Normal Negative [facility] ([place]) Comment on above: Performed By: #### U AMIC, UA ####[place] [address] Ketones Ql (U) 15 mg/dL Abnormal Neg-Trace [facility] ([place]) Comment on above: Performed By: #### U AMIC, UA ####[place] [address] UA Appear Hazy Abnormal Clear [facility] ([place]) Comment on above: Performed By: #### U AMIC, UA ####[place] [address] UA Blood Negative Normal Neg-Trace [facility] ([place]) Comment on above: Performed By: #### U AMIC, UA ####[place] [address] UA Leuk Est Trace Normal Negative [facility] ([place]) Comment on above: Performed By: #### U AMIC, UA ####[place] [address] UA Nitrite Negative Normal Negative [facility] ([place]) Comment on above: Performed By: #### U AMIC, UA ####[place] [address] UA pH 6.0 Normal 5.0 - 8.0 [facility] ([place]) Comment on above: Performed By: #### U AMIC, UA ####[place] [address] UA Protein 30 mg/dL Normal Negative [facility] ([place]) Comment on above: Performed By: #### U AMIC, UA ####[place] [address] UA Spec Grav >=1.030 Abnormal 1.006-1.029 [facility] ([place]) Comment on above: Performed By: #### U AMIC, UA ####[place] [address] UA Specimen Type Clean Catch Normal [facility] ([place]) Comment on above: Performed By: #### U AMIC, UA ####[place] [address] UA Urobilinogen 1.0 E.U./dL Normal 0.2-1.0 [facility] ([place]) Comment on above: Performed By: #### U AMIC, UA ####[place] [address] Urobilinogen (U) [Mass/Vol] Negative Normal Neg-Trace [facility] ([place]) Comment on above: Performed By: #### U AMIC, UA ####[place] [address] UAMICon 05-18-2024 UA Bacteria 3+ /hpf Abnormal Negative [facility] ([place]) Comment on above: Performed By: #### U AMIC, UA ####[place] [address] UA Mucous 4+ /hpf Normal [facility] ([place]) Comment on above: Performed By: #### U AMIC, UA ####[place] [address] UA RBC Negative Normal 0-2 [facility] ([place]) Comment on above: Performed By: #### U AMIC, UA ####[place] [address] UA Squam Epithelial 5-10 Normal 0-20 [facility] ([place]) Comment on above: Performed By: #### U AMIC, UA ####[address] [address] UA WBC 5-10 Abnormal 0-5 [facility] ([place]) Comment on above: Performed By: #### U AMIC, UA ####[address] [address] .Auto Diffon 05-17-2024 Basophil, Absolute 0.0 10 3/mcL Normal 0.0-0.3 [facility] ([place]) Comment on above: Performed By: #### M DW, ADIFF, PBNP, CBC, CMP, LIP, TROPHS, GFR, ANEU ####[address] [address] Basophils/100 WBC (Bld) 0.5 % Normal 0.0-2.5 [facility] ([place]) Comment on above: Performed By: #### M DW, ADIFF, PBNP, CBC, CMP, LIP, TROPHS, GFR, ANEU ####[address] [address] Eosinophil, Absolute 0.0 10 3/mcL Normal 0.0-0.7 [facility] ([place]) Comment on above: Performed By: #### M DW, ADIFF, PBNP, CBC, CMP, LIP, TROPHS, GFR, ANEU ####[address] [address] Eosinophils/100 WBC (Bld) 0.5 % Normal 0.0-6.0 [facility] ([place]) Comment on above: Performed By: #### M DW, ADIFF, PBNP, CBC, CMP, LIP, TROPHS, GFR, ANEU ####[address] [address] Lymphocyte, Absolute 0.4 10 3/mcL Low 0.9-4.3 [facility] ([place]) Comment on above: Performed By: #### M DW, ADIFF, PBNP, CBC, CMP, LIP, TROPHS, GFR, ANEU ####[address] [address] Lymphocytes/100 WBC (Bld) 11.8 % Low 20.0-40.0 [facility] ([place]) Comment on above: Performed By: #### M DW, ADIFF, PBNP, CBC, CMP, LIP, TROPHS, GFR, ANEU ####[address] [address] Monocyte, Absolute 0.0 10 3/mcL Low 0.1-1.4 [facility] ([place]) Comment on above: Performed By: #### M DW, ADIFF, PBNP, CBC, CMP, LIP, TROPHS, GFR, ANEU ####[address] [address] Monocytes/100 WBC (Bld) 1.3 % Low 2.0-13.0 [facility] ([place]) Comment on above: Performed By: #### M DW, ADIFF, PBNP, CBC, CMP, LIP, TROPHS, GFR, ANEU ####[address] [address] Neutrophils/100 WBC (Bld) 85.9 % High 50.0-75.0 [facility] ([place]) Comment on above: Performed By: #### M DW, ADIFF, PBNP, CBC, CMP, LIP, TROPHS, GFR, ANEU ####[address] [address] .GFRon 05-17-2024 GFR >60 Normal [facility] ([place]) Comment on above: Result Comment: GFR Population mean for , Non- Americans Ages 20-29 = 116 mL/min/1.73 sq.m. Ages 30-39 = 107 mL/min/1.73 sq.m. Ages 40-49 = 99 mL/min/1.73 sq.m. Ages 50-59 = 93 mL/min/1.73 sq.m. Ages 60-69 = 85 mL/min/1.73 sq.m. Ages 70+ = 75 mL/min/1.73 sq.m. Chronic Kidney Disease: Less than 60 mL/min/1.73 square meters End Stage Renal Disease: Less than 15 mL/min/1.73 square meters Performed By: #### M DW, ADIFF, PBNP, CBC, CMP, LIP, TROPHS, GFR, ANEU ####[place] [address] GFR Non- >60 Normal [facility] ([place]) Comment on above: Result Comment: GFR Population mean for , Non- Americans Ages 20-29 = 116 mL/min/1.73 sq.m. Ages 30-39 = 107 mL/min/1.73 sq.m. Ages 40-49 = 99 mL/min/1.73 sq.m. Ages 50-59 = 93 mL/min/1.73 sq.m. Ages 60-69 = 85 mL/min/1.73 sq.m. Ages 70+ = 75 mL/min/1.73 sq.m. Chronic Kidney Disease: Less than 60 mL/min/1.73 square meters End Stage Renal Disease: Less than 15 mL/min/1.73 square meters Performed By: #### M DW, ADIFF, PBNP, CBC, CMP, LIP, TROPHS, GFR, ANEU ####[place] [address] .MDWon 05-17-2024 Monocyte Distribution Width 30.00 High 0.00-20.00 [facility] ([place]) Comment on above: Result Comment: For adults in ED, MDW>20.0 may be associated with a higher risk of sepsis during the first 12hrs of hospital admission Performed By: #### M DW, ADIFF, PBNP, CBC, CMP, LIP, TROPHS, GFR, ANEU ####[place] [address] .NEUABSon 05-17-2024 Neutrophil, Absolute 3.0 10 3/mcL Normal 2.3-8.1 [facility] ([place]) Comment on above: Performed By: #### M DW, ADIFF, PBNP, CBC, CMP, LIP, TROPHS, GFR, ANEU ####[place] [address] CBCon 05-17-2024 Erythrocyte distribution width (RBC) [Ratio] 14.6 % Normal 11.5-15.5 [facility] ([place]) Comment on above: Performed By: #### M DW, ADIFF, PBNP, CBC, CMP, LIP, TROPHS, GFR, ANEU ####[place] [address] Hematocrit (Bld) [Volume fraction] 37.3 % Normal 34.0-46.0 [facility] ([place]) Comment on above: Performed By: #### M DW, ADIFF, PBNP, CBC, CMP, LIP, TROPHS, GFR, ANEU ####[place] [address] Hgb 12.8 G/dL Normal 12.0-16.0 [facility] ([place]) Comment on above: Performed By: #### M DW, ADIFF, PBNP, CBC, CMP, LIP, TROPHS, GFR, ANEU ####[place] [address] MCH (RBC) [Entitic mass] 30.3 pg Normal 27.0-33.0 [facility] ([place]) Comment on above: Performed By: #### M DW, ADIFF, PBNP, CBC, CMP, LIP, TROPHS, GFR, ANEU ####[place] [address] MCHC 34.2 G/dL Normal 32.0-36.0 [facility] ([place]) Comment on above: Performed By: #### M DW, ADIFF, PBNP, CBC, CMP, LIP, TROPHS, GFR, ANEU ####[place] [address] MCV (RBC) [Entitic vol] 88.6 fL Normal 80.0-99.0 [facility] ([place]) Comment on above: Performed By: #### M DW, ADIFF, PBNP, CBC, CMP, LIP, TROPHS, GFR, ANEU ####[place] [address] Platelet 151 10 3/mcL Normal 150-450 [facility] ([place]) Comment on above: Performed By: #### M DW, ADIFF, PBNP, CBC, CMP, LIP, TROPHS, GFR, ANEU ####[place] [address] Platelet mean volume (Bld) [Entitic vol] 9.5 fL Normal 6.6-10.5 [facility] ([place]) Comment on above: Performed By: #### M DW, ADIFF, PBNP, CBC, CMP, LIP, TROPHS, GFR, ANEU ####[place] [address] RBC 4.22 10 6/mcL Normal 4.10-5.30 [facility] ([place]) Comment on above: Performed By: #### M DW, ADIFF, PBNP, CBC, CMP, LIP, TROPHS, GFR, ANEU ####[place] [address] WBC 3.5 10 3/mcL Low 4.5-10.8 [facility] ([place]) Comment on above: Performed By: #### M DW, ADIFF, PBNP, CBC, CMP, LIP, TROPHS, GFR, ANEU ####[place] [address] CK-Bo 05-17-2024 Relative Index Not Valid Normal 0.0-4.5 [facility] ([place]) Comment on above: Result Comment: CPK <185 invalidates relative index Performed By: #### C KMBM, TROPHS, PHOS, CKMB, MG ####[place] [address] CK [Catalytic activity/Vol] 57 U/L Normal 7-185 [facility] ([place]) Comment on above: Performed By: #### C KMBM, TROPHS, PHOS, CKMB, MG ####[place] [address] CKMBMon 05-17-2024 CK.MB [Mass/Vol] Not performed Normal 0.00-5.00 [facility] ([place]) Comment on above: Result Comment: CKMB result not performed when CPK < 75 Note - New Reference Range in effect 20 Performed By: #### C KMBM, TROPHS, PHOS, CKMB, MG ####[place] [address] CMPon 05-17-2024 Albumin Level 4.0 G/dL Normal 3.2-4.8 [facility] ([place]) Comment on above: Performed By: #### M DW, ADIFF, PBNP, CBC, CMP, LIP, TROPHS, GFR, ANEU ####[address] [address] Albumin/Globulin [Mass ratio] 1.2 {ratio} Normal 0.9-1.6 [facility] ([place]) Comment on above: Performed By: #### M DW, ADIFF, PBNP, CBC, CMP, LIP, TROPHS, GFR, ANEU ####[address] [address] ALP [Catalytic activity/Vol] 76 U/L Normal 38-126 [facility] ([place]) Comment on above: Performed By: #### M DW, ADIFF, PBNP, CBC, CMP, LIP, TROPHS, GFR, ANEU ####[address] [address] ALT [Catalytic activity/Vol] 89 U/L High 10-49 [facility] ([place]) Comment on above: Performed By: #### M DW, ADIFF, PBNP, CBC, CMP, LIP, TROPHS, GFR, ANEU ####[address] [address] AST [Catalytic activity/Vol] 76 U/L High 8-34 [facility] ([place]) Comment on above: Performed By: #### M DW, ADIFF, PBNP, CBC, CMP, LIP, TROPHS, GFR, ANEU ####[place] [id number] Bili Total 0.90 mg/dL Normal 0.20-1.20 [facility] ([place]) Comment on above: Result Comment: Use of this assay is not recommended for patients undergoing treatment with eltrombopag due to the potential for falsely elevated results. Performed By: #### M DW, ADIFF, PBNP, CBC, CMP, LIP, TROPHS, GFR, ANEU ####[address] [address] BUN/Creatinine Ratio 24.6 ratio High 10.0-22.0 [facility] ([place]) Comment on above: Performed By: #### M DW, ADIFF, PBNP, CBC, CMP, LIP, TROPHS, GFR, ANEU ####[address] [address] Calcium [Mass/Vol] 9.7 mg/dL Normal 8.7-10.4 [facility] ([place]) Comment on above: Performed By: #### M DW, ADIFF, PBNP, CBC, CMP, LIP, TROPHS, GFR, ANEU ####[address] [address] Chloride [Moles/Vol] 103 mmol/L Normal 98-110 [facility] ([place]) Comment on above: Performed By: #### M DW, ADIFF, PBNP, CBC, CMP, LIP, TROPHS, GFR, ANEU ####[address] [address] CO2 [Moles/Vol] 30 mmol/L Normal 22-32 [facility] ([place]) Comment on above: Performed By: #### M DW, ADIFF, PBNP, CBC, CMP, LIP, TROPHS, GFR, ANEU ####[address] [address] Creatinine [Mass/Vol] 0.61 mg/dL Normal 0.50-1.20 [facility] ([place]) Comment on above: Result Comment: Test ing performed on IMVU analyzer using enzymatic creatinine methodology. Performed By: #### M DW, ADIFF, PBNP, CBC, CMP, LIP, TROPHS, GFR, ANEU ####[place] [address] Electrolyte Balance 7.0 mEq/L Normal 4.0-15.0 [facility] ([place]) Comment on above: Performed By: #### M DW, ADIFF, PBNP, CBC, CMP, LIP, TROPHS, GFR, ANEU ####[place] [id number] Globulin 3.2 G/dL Normal 1.5-3.8 [facility] ([place]) Comment on above: Performed By: #### M DW, ADIFF, PBNP, CBC, CMP, LIP, TROPHS, GFR, ANEU ####[address] [address] Glucose [Mass/Vol] 129 mg/dL High 70-110 [facility] ([place]) Comment on above: Performed By: #### M DW, ADIFF, PBNP, CBC, CMP, LIP, TROPHS, GFR, ANEU ####[address] [address] Potassium [Moles/Vol] 3.8 mmol/L Normal 3.5-5.0 [facility] ([place]) Comment on above: Performed By: #### M DW, ADIFF, PBNP, CBC, CMP, LIP, TROPHS, GFR, ANEU ####[place] [id number] Sodium [Moles/Vol] 140 mmol/L Normal 136-145 [facility] ([place]) Comment on above: Performed By: #### M DW, ADIFF, PBNP, CBC, CMP, LIP, TROPHS, GFR, ANEU ####[place] [address] Total Protein 7.2 G/dL Normal 5.7-8.2 [facility] ([place]) Comment on above: Result Comment: No te - New Reference Range in effect 20 Performed By: #### M DW, ADIFF, PBNP, CBC, CMP, LIP, TROPHS, GFR, ANEU ####[place] [address] Urea nitrogen [Mass/Vol] 15.0 mg/dL Normal 8.0-22.0 [facility] ([place]) Comment on above: Performed By: #### M DW, ADIFF, PBNP, CBC, CMP, LIP, TROPHS, GFR, ANEU ####[address] [address] [address] ABD/PELVIS W/ IV CONTRAST ONLYon 05-17-2024 CT ABD/PELVIS W/ IV CONTRAST ONLY ORIGINAL EXAMINATION: CT OF THE ABDOMEN AND PELVIS WITH CONTRAST05/17/2024 2:[address] ABDOMEN/PELVIS WITH CONTRAST Multiple axial images were obtained with coronal and sagittal reconstructions. CLINICAL INFORMATION: TECHNIQUE: CT of the abdomen and pelvis was performed with the administration of intravenous contrast. Multiplanar reformatted images are provided for review. Automated exposure control, iterative reconstruction, and/or weight based adjustment of the mA/kV was utilized to reduce the radiation dose to as low as reasonably achievable. COMPARISON: CT abdomen pelvis 04/08/2024. HISTORY: ORDERING SYSTEM PROVIDED HISTORY: Reason for Exam: PT STATES SOB, CHEST PAIN, ABD PAIN, MID BACK PAIN X LAST SATURDAY, HX OF OVARIAN CA [id number]^ FINDINGS: Lung bases/lower mediastinum: Please see same day CT chest.. Liver: Stable homogeneous enhancing 1.3 cm mass in the right hepatic lobe (axial image 30/134). Gallbladder/bile ducts: Unremarkable. Pancreas: Unremarkable. Spleen: Unremarkable. Adrenal glands: Unremarkable. Kidney/ureter/bladder: Symmetric enhancement of the kidneys. Stable subcentimeter hypodensity in left inferior renal pole, too small to further characterize but likely represents a cyst. No hydronephrosis. The ureters are nondilated. The urinary bladder is decompressed limiting its evaluation. Bowel: There is a small hiatal hernia, unchanged. Status post appendectomy. No evidence of dilated bowel to suggest bowel obstruction. Stable hyperdense calcifications versus hyperenhancement in the distal sigmoid colon. There is no significant diverticulosis. Small fat containing umbilical hernia. Free air/Free Fluid: No evidence of pneumoperitoneum. There is a small-moderate amount of ascites, seen surrounding the liver, spleen, both lower quadrants and within the pelvis. Reproductive organs: Status post hysterectomy. The ovaries are not definitively visualized. No definite enhancing omental or peritoneal lesion. Vascular/lymph nodes: No aortic aneurysm or lymphadenopathy by size criteria. Bones/soft tissues: No evidence of acute fracture or aggressive osseous lesion. There is degenerative change of the spine. IMPRESSION: 1. Small to moderate amount of ascites, of indeterminate etiology. No definite peritoneal/omental nodularity. 2. Stable solitary homogeneous 1.2 cm enhancing mass in the liver. 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 3. Stable wall calcifications versus wall hyperenhancement of the sigmoid colon. No bowel obstruction. Interpreted by: Mckinley Veras Preliminary Report By: Mckinley Veras Electronically signed By Mckinley Veras Dictated Date: 05/17/2024 2:51:12 PM Prelim Date: 05/17/2024 3:04:06 PM Sign Date: 05/17/2024 3:04:06 PM Ordering Provider: BALTAZAR HAYES [facility]) CT ANGIOGRAPHY CHEST W/CONTR Argenis 05-17-2024 CT ANGIOGRAPHY CHEST W/CONTRAST ORIGINAL EXAMINATION: CTA OF THE CHEST05/17/2024 2:40 pm CTA CHEST WITH CONTRAST TECHNIQUE: CTA of the chest was performed after the administration of intravenous contrast. Multiplanar reformatted images are provided for review. MIP images are provided for review. Automated exposure control, iterative reconstruction, and/or weight based adjustment of the mA/kV was utilized to reduce the radiation dose to as low as reasonably achievable. CTA of the thorax was acquired in the axial plane. Coronal and sagittal reformatted images were reviewed. Three dimensional reconstructions were created on a separate workstation. This exam was performed according to our departmental dose optimization program, and includes the following measures where applicable: automated exposure control, adjustment of the mAs and/or kVp according to patient size and/or exam, and an iterative reconstruction algorithm. COMPARISON: None HISTORY: ORDERING SYSTEM PROVIDED HISTORY: Reason for Exam: PT STATES SOB, CHEST PAIN, ABD PAIN, MID BACK PAIN X LAST SATURDAY, HX OF OVARIAN CA CP, suspect PE FINDINGS: Pulmonary Arteries:Main pulmonary artery is nondilated. Contrast bolus is adequate to exclude pulmonary arterial embolus to the segmental level. No evidence of right heart strain. Mediastinum: There is a right chest venous catheter which terminates at the right atrium. Thoracic aorta is normal in size. Heart is normal in size. No pericardial effusion. No pathologically enlarged mediastinal or hilar lymph nodes by size criteria. Lungs: Central tracheobronchial tree is patent. No focal consolidation, pneumothorax, or pleural effusion. No suspicious pulmonary nodules. Upper Abdomen:Limited evaluation is fully evaluated on same day CT abdomen/pelvis. Bones/Soft Tissues: No evidence of acute fracture. There are mild degenerative changes in the spine. The soft tissues are unremarkable. IMPRESSION: No evidence of pulmonary embolus. Interpreted by: Mckinley Veras Preliminary Report By: Mckinley Veras Electronically signed By Mckinley Veras Dictated Date: 05/17/2024 2:44:41 PM Prelim Date: 05/17/2024 2:51:02 PM Sign Date: 05/17/2024 2:51:02 PM Ordering Provider: BALTAZAR HAYES [facility]) DDHSon 05-17-2024 D-Dimer HS 847 ng/mL D-DU High 0-230 [facility] ([place]) Comment on above: Result Comment: Rod ramos results reported in D-DU ng/ml. Positive for D-dimer. A positive D-Dimer may occur in the following: DVT, PE, DIC, Trauma, Cancer, Sepsis, , Rheumatoid arthritis, Myocardial infarction and Cirrhosis. Note: Not affected by Rheumatoid Factor <= 1400 IU/ml. The result of the D-Dimer test should be evaluated in the context of all the clinical and laboratory data available. In those instances where the laboratory result does not agree with the clinical evaluation, additional tests should be performed accordingly. Performed By: #### D [facility] ####[place] [address] LABORATORYOrdered By: SYSTEM SYSTEM on 05-17-2024 Troponin I.cardiac DL <= 0.01 ng/mL [Mass/Vol] ng/L Normal 0 - 34 ng/L [facility] Comment on above: Interpretive Data: High Sensitive Troponin I Reference Ranges: Female: 0-34 ng/L Male: 0-54 ng/L Testing performed on [employer] IM analyzer using direct chemiluminescent technology. CK [Catalytic activity/Vol] 57 U/L Normal 7 - 185 U/L [facility] Magnesium [Mass/Vol] 1.8 mg/dL Normal 1.6 - 2 .4 mg/dL [facility] Phosphate [Mass/Vol] 3.1 mg/dL Normal 2.4 - 5 .1 mg/dL [facility] Comment on above: Interpretive Data: * *Note - New Reference Range in effect 20 Troponin I.cardiac DL <= 0.01 ng/mL [Mass/Vol] ng/L Normal 0 - 34 ng/L [facility] Comment on above: Interpretive Data: High Sensitive Troponin I Reference Ranges: Female: 0-34 ng/L Male: 0-54 ng/L Testing performed on [employer] IM analyzer using direct chemiluminescent technology. Albumin BCP dye [Mass/Vol] 4.0 G/dL Normal 3.2 - 4.8 G/dL ADM Albumin/Globulin [Mass ratio] 1.2 {ratio} Normal 0.9 - 1.6 ratio [facility] ALP [Catalytic activity/Vol] 76 U/L Normal 38 - 126 U/L ADM SS ALT No additional P-5'-P [Catalytic activity/Vol] 89 U/L High 10 - 49 U/L ADM SS AST [Catalytic activity/Vol] 76 U/L High 8 - 34 U/L ADM SS Basophils (Bld) [#/Vol] 0.0 103/mcL Normal 0.0 - 0.3 10^3/mcL Workflow SS Basophils/100 WBC (Bld) 0.5 % Normal 0.0 - 2.5 % Workflow SS Bilirubin [Mass/Vol] 0.90 mg/dL Normal 0.20 - 1.20 mg/dL ADM SS Comment on above: Interpretive Data: U se of this assay is not recommended for patients undergoing treatment with eltrombopag due to the potential for falsely elevated results. D-Dimer HS 847 ng/mL D-DU High 0 - 230 ng/mL D-DU [facility] Comment on above: Result Comment: Rod r results reported in D-DU ng/ml. Positive for D-dimer. A positive D-Dimer may occur in the following: DVT, PE, DIC, Trauma, Cancer, Sepsis, , Rheumatoid arthritis, Myocardial infarction and Cirrhosis. Note: Not affected by Rheumatoid Factor <= 1400 IU/ml. Interpretive Data: T he result of the D-Dimer test should be evaluated in the context of all the clinical and laboratory data available. In those instances where the laboratory result does not agree with the clinical evaluation, additional tests should be performed accordingly. Eosinophils (Bld) [#/Vol] 0.0 103/mcL Normal 0.0 - 0.7 10^3/mcL Workflow SS Eosinophils/100 WBC (Bld) 0.5 % Normal 0.0 - 6.0 % Workflow SS Erythrocyte distribution width (RBC) [Ratio] 14.6 % Normal 11.5 - 15.5 % Workflow SS Globulin 3.2 G/dL Normal 1.5 - 3.8 G/dL ADM SS Hematocrit (Bld) [Volume fraction] 37.3 % Normal 34.0 - 46.0 % Workflow SS Hemoglobin (Bld) [Mass/Vol] 12.8 G/dL Normal 12.0 - 16.0 G/dL Workflow SS Lipase [Catalytic activity/Vol] 37 U/L Normal 12 - 53 U/L ADM SS Comment on above: Interpretive Data: * *Note - New Reference Range in effect 20 Lymphocytes (Bld) [#/Vol] 0.4 103/mcL Low 0.9 - 4.3 10^3/mcL AH Workflow SS Lymphocytes/100 WBC (Bld) 11.8 % Low 20.0 - 40.0 % AH Workflow SS MCH (RBC) [Entitic mass] 30.3 pg Normal 27.0 - 33.0 pg AH Workflow SS MCHC 34.2 G/dL Normal 32.0 - 36.0 G/dL AH Workflow SS MCV (RBC) [Entitic vol] 88.6 fL Normal 80.0 - 99.0 fL AH Workflow SS Monocyte distribution width Auto (Bld) [Entitic vol] 30.00 1 High 0.00 - 20.00 AH Workflow SS Comment on above: Result Comment: For adults in ED, MDW>20.0 may be associated with a higher risk of sepsis during the first 12hrs of hospital admission Monocytes (Bld) [#/Vol] 0.0 103/mcL Low 0.1 - 1.4 10^3/mcL AH Workflow SS Monocytes/100 WBC (Bld) 1.3 % Low 2.0 - 13.0 % AH Workflow SS Natriuretic peptide.B prohormone N-Terminal IA [Mass/Vol] pg/mL Normal 0 - 450 pg/mL ADM SS Neutrophils (Bld) [#/Vol] 3.0 103/mcL Normal 2.3 - 8.1 10^3/mcL AH Workflow SS Neutrophils/100 WBC (Bld) 85.9 % High 50.0 - 75.0 % AH Workflow SS Platelet mean volume (Bld) [Entitic vol] 9.5 fL Normal 6.6 - 10.5 fL AH Workflow SS Platelets (Bld) [#/Vol] 151 103/mcL Normal 150 - 450 10^3/mcL AH Workflow SS Protein [Mass/Vol] 7.2 G/dL Normal 5.7 - 8.2 G/dL ADM SS Comment on above: Interpretive Data: * *Note - New Reference Range in effect 20 RBC (Bld) [#/Vol] 4.22 106/mcL Normal 4.10 - 5.3 0 10^6/mcL AH Workflow SS WBC (Bld) [#/Vol] 3.5 103/mcL Low 4.5 - 10.8 10^3/mcL Workflow SS LABORATORYOrdered By: Iraida Cordon on 05-17-2024 CK.MB [Mass/Vol] Not performed Invalid Interpretation Code 0.00 - 5.00 Chemistry S Comment on above: Result Comment: CKMB result not performed when CPK < 75 Interpretive Data: * *Note - New Reference Range in effect 20 Free T4 index Calc [Mass/Vol] Not Valid Invalid Interpretation Code 0.0 - 4.5 Chemistry S Comment on above: Result Comment: CPK <185 invalidates relative index LABORATORYOrdered By: Yanelis Adhikari on 05-17-2024 Appearance (U) Clear (05/17/24 2:14 PM) Normal Clear AH Auto Urine SS Bilirubin Ql (U) Negative (05/17/24 2:14 PM) Normal Neg-Trace AH Auto Urine SS Color (U) Dark Yellow (05/17/24 2:14 PM) Normal AH Auto Urine SS Glucose Test strip (U) [Mass/Vol] Negative Normal Negative AH Auto Urine SS Hemoglobin Auto test strip (U) [Mass/Vol] Negative (05/17/24 2:14 PM) Normal Neg-Trace AH Auto Urine SS Ketones Ql (U) Trace mg/dL Normal Neg-Trace AH Auto U rine SS UA Leuk Est Trace *NA* (05/17/24 2:14 PM) Invalid Interpretation Code Negative AH Auto Urine SS UA Nitrite Negative (05/17/24 2:14 PM) Normal Negative AH Auto Urine SS UA pH 6.5 (05/17/24 2:14 PM) Normal 5.0 - 8.0 AH Auto Urine SS UA Protein 30 mg/dL Normal Negative AH Auto Urine SS UA Spec Grav 1.025 (05/17/24 2:14 PM) Normal 1.006-1.029 AH Auto Urine SS UA Specimen Type Clean Catch (05/17/24 2:14 PM) Normal Auto Urine SS UA Urobilinogen 1.0 E.U./dL Normal 0.2-1.0 AH Auto Urine SS LABORATORYOrdered By: Enrico Burch on 05-17-2024 Beta HCG ( test) Ql (U) HCG not detected.Very dilute urine specimens, as indicated by a low specific gravity, may not contain patient services representative levels of hCG.If is still suspected, a first morning urine specimen should be collected 48 hours later and tested. Invalid Interpretation Code Manual Urine SS HCG Qn (U) Negative (05/17/24 2:14 PM) Normal Manual Urine SS LIPon 05-17-2024 Lipase Level 37 U/L Normal 12-53 [facility] ([place]) Comment on above: Result Comment: No te - New Reference Range in effect 20 Performed By: #### M DW, ADIFF, PBNP, CBC, CMP, LIP, TROPHS, GFR, ANEU ####[place] [address] MGon 05-17-2024 Magnesium [Mass/Vol] 1.8 mg/dL Normal 1.6-2.4 [facility] ([place]) Comment on above: Performed By: #### C KMBM, TROPHS, PHOS, CKMB, MG ####[place] [address] PBNPon 05-17-2024 N-Terminal proBNP <35 Normal 0-450 [facility] ([place]) Comment on above: Performed By: #### M DW, ADIFF, PBNP, CBC, CMP, LIP, TROPHS, GFR, ANEU ####[place] [address] PHOSon 05-17-2024 Phosphate [Mass/Vol] 3.1 mg/dL Normal 2.4-5.1 [facility] ([place]) Comment on above: Result Comment: No te - New Reference Range in effect 20 Performed By: #### C KMBM, TROPHS, PHOS, CKMB, MG ####[place] [address] PREGUon 05-17-2024 HCG ( test) Ql (U) Negative Normal [facility] ([place]) Comment on above: Performed By: #### U A #### [place] [address] test (u) int Invalid Interpretation Code [facility] ([place]) Comment on above: Result Comment: HCG not detected. Very dilute urine specimens, as indicated by a low specific gravity, may not contain patient services representative levels of hCG. If is still suspected, a first morning urine specimen should be collected 48 hours later and tested. Performed By: #### U A #### [place] [id number] TROPHSon 05-17-2024 High Sensitivity Troponin I <3 Normal 0-34 [facility] ([place]) Comment on above: Result Comment: High Sensitive Troponin I Reference Ranges: Female: 0-34 ng/L Male: 0-54 ng/L Testing performed on [employer] IM analyzer using direct chemiluminescent technology. Performed By: #### C KMBM, TROPHS, PHOS, CKMB, MG ####[place] [address] High Sensitivity Troponin I <3 Normal 0-34 [facility] ([place]) Comment on above: Result Comment: High Sensitive Troponin I Reference Ranges: Female: 0-34 ng/L Male: 0-54 ng/L Testing performed on [employer] IM analyzer using direct chemiluminescent technology. Performed By: #### M DW, ADIFF, PBNP, CBC, CMP, LIP, TROPHS, GFR, ANEU ####[place] [address] UAon 05-17-2024 Color (U) Dark Yellow Normal [facility] ([place]) Comment on above: Performed By: #### U A #### [place] [id number] Glucose (U) [Mass/Vol] Negative Normal Negative [facility] ([place]) Comment on above: Performed By: #### U A #### [address] [address] Ketones Ql (U) Trace Normal Neg-Trace [facility] ([place]) Comment on above: Performed By: #### U A #### [address] [address] UA Appear Clear Normal Clear [facility] ([place]) Comment on above: Performed By: #### U A #### [place] [id number] UA Blood Negative Normal Neg-Trace [facility] ([place]) Comment on above: Performed By: #### U A #### [address] [address] UA Leuk Est Trace Normal Negative [facility] ([place]) Comment on above: Performed By: #### U A #### [address] [address] UA Nitrite Negative Normal Negative [facility] ([place]) Comment on above: Performed By: #### U A #### [place] [address] UA pH 6.5 Normal 5.0 - 8.0 [facility] ([place]) Comment on above: Performed By: #### U A #### [place] [address] UA Protein 30 mg/dL Normal Negative [facility] ([place]) Comment on above: Performed By: #### U A #### [place] [address] UA Spec Grav 1.025 Normal 1.006-1.029 [facility] ([place]) Comment on above: Performed By: #### U A #### [place] [address] UA Specimen Type Clean Catch Normal [facility] ([place]) Comment on above: Performed By: #### U A #### [place] [address] UA Urobilinogen 1.0 E.U./dL Normal 0.2-1.0 [facility] ([place]) Comment on above: Performed By: #### U A #### [place] [address] Urobilinogen (U) [Mass/Vol] Negative Normal Neg-Trace [facility] ([place]) Comment on above: Performed By: #### U A #### [place] [address] XR CHEST 2 VIEWSon XR CHEST 2 VIEWS ORIGINAL EXAMINATION: TWO XRAY VIEWS OF THE CHEST05/17/2024 12:38 pm CHEST AP/PA and LATERAL COMPARISON: 03/30/2024 chest radiograph HISTORY: ORDERING SYSTEM PROVIDED HISTORY: Reason for Exam: CHEST [id number]^ FINDINGS: Lines/Tubes: Interval placement of a right chest Port-A-Cath; tip projects over the cavoatrial junction. Medical devices overlie the right chest. Lungs: No evidence of a focal consolidation, pneumothorax, or pleural effusion. Heart/Mediastinum: Within normal limits of size. Bones/Soft Tissues: No acute fractures are identified. The soft tissues are unremarkable. IMPRESSION: No evidence of an acute cardiopulmonary process. Interpreted by: Mckinley Veras Preliminary Report By: Mckinley Veras Electronically signed By Mckinley Veras Dictated Date: 05/17/2024 12:42:33 PM Prelim Date: 05/17/2024 12:44:26 PM Sign Date: 05/17/2024 12:44:26 PM Ordering Provider: REANNA Easley [facility] ([place]) .Auto Diffon 05-11-2024 Basophil, Absolute 0.0 10 3/mcL Normal 0.0-0.3 [facility] ([place]) Comment on above: Performed By: #### C BC, MG, ANEU, GFR, CA125, CMP, ADIFF ####[address] [address] Basophils/100 WBC (Bld) 0.5 % Normal 0.0-2.5 [facility] ([place]) Comment on above: Performed By: #### C BC, MG, ANEU, GFR, CA125, CMP, ADIFF ####[address] [address] Eosinophil, Absolute 0.1 10 3/mcL Normal 0.0-0.7 [facility] ([place]) Comment on above: Performed By: #### C BC, MG, ANEU, GFR, CA125, CMP, ADIFF ####[address] [address] Eosinophils/100 WBC (Bld) 1.3 % Normal 0.0-6.0 [facility] ([place]) Comment on above: Performed By: #### C BC, MG, ANEU, GFR, CA125, CMP, ADIFF ####[address] [address] Lymphocyte, Absolute 0.9 10 3/mcL Normal 0.9-4.3 [facility] ([place]) Comment on above: Performed By: #### C BC, MG, ANEU, GFR, CA125, CMP, ADIFF ####[address] [address] Lymphocytes/100 WBC (Bld) 13.9 % Low 20.0-40.0 [facility] ([place]) Comment on above: Performed By: #### C BC, MG, ANEU, GFR, CA125, CMP, ADIFF ####[address] [address] Monocyte, Absolute 0.5 10 3/mcL Normal 0.1-1.4 [facility] ([place]) Comment on above: Performed By: #### C BC, MG, ANEU, GFR, CA125, CMP, ADIFF ####[address] [address] Monocytes/100 WBC (Bld) 8.2 % Normal 2.0-13.0 [facility] ([place]) Comment on above: Performed By: #### C BC, MG, ANEU, GFR, CA125, CMP, ADIFF ####[address] [address] Neutrophils/100 WBC (Bld) 76.1 % High 50.0-75.0 [facility] ([place]) Comment on above: Performed By: #### C BC, MG, ANEU, GFR, CA125, CMP, ADIFF ####[address] [address] .GFRon 05-11-2024 GFR >60 Normal [facility] ([place]) Comment on above: Result Comment: GFR Population mean for , Non- Americans Ages 20-29 = 116 mL/min/1.73 sq.m. Ages 30-39 = 107 mL/min/1.73 sq.m. Ages 40-49 = 99 mL/min/1.73 sq.m. Ages 50-59 = 93 mL/min/1.73 sq.m. Ages 60-69 = 85 mL/min/1.73 sq.m. Ages 70+ = 75 mL/min/1.73 sq.m. Chronic Kidney Disease: Less than 60 mL/min/1.73 square meters End Stage Renal Disease: Less than 15 mL/min/1.73 square meters Performed By: #### U A #### [address] [address] GFR Non- >60 Normal [facility] ([place]) Comment on above: Result Comment: GFR Population mean for , Non- Americans Ages 20-29 = 116 mL/min/1.73 sq.m. Ages 30-39 = 107 mL/min/1.73 sq.m. Ages 40-49 = 99 mL/min/1.73 sq.m. Ages 50-59 = 93 mL/min/1.73 sq.m. Ages 60-69 = 85 mL/min/1.73 sq.m. Ages 70+ = 75 mL/min/1.73 sq.m. Chronic Kidney Disease: Less than 60 mL/min/1.73 square meters End Stage Renal Disease: Less than 15 mL/min/1.73 square meters Performed By: #### U A #### [address] [address] .NEUABSon 05-11-2024 Neutrophil, Absolute 4.9 10 3/mcL Normal 2.3-8.1 [facility] ([place]) Comment on above: Performed By: #### U A #### [address] [address] [id number] 05-11-2024 CA 125 446.0 U/mL High 2.0-35.0 [facility] ([place]) Comment on above: Result Comment: Test ing performed on the [employer] analyzer using direct chemiluminesent technology. Patient results determined by assays using different manufacturers for methods may not be comparable. Performed By: #### U A #### [address] [address] CBCon 05-11-2024 Erythrocyte distribution width (RBC) [Ratio] 14.9 % Normal 11.5-15.5 [facility] ([place]) Comment on above: Performed By: #### C BC, MG, ANEU, GFR, CA125, CMP, ADIFF ####[place] [address] Hematocrit (Bld) [Volume fraction] 34.9 % Normal 34.0-46.0 [facility] ([place]) Comment on above: Performed By: #### C BC, MG, ANEU, GFR, CA125, CMP, ADIFF ####[place] [address] Hgb 11.7 G/dL Low 12.0-16.0 [facility] ([place]) Comment on above: Performed By: #### C BC, MG, ANEU, GFR, CA125, CMP, ADIFF ####[place] [address] MCH (RBC) [Entitic mass] 29.7 pg Normal 27.0-33.0 [facility] ([place]) Comment on above: Performed By: #### C BC, MG, ANEU, GFR, CA125, CMP, ADIFF ####[place] [address] MCHC 33.6 G/dL Normal 32.0-36.0 [facility] ([place]) Comment on above: Performed By: #### C BC, MG, ANEU, GFR, CA125, CMP, ADIFF ####[place] [address] MCV (RBC) [Entitic vol] 88.4 fL Normal 80.0-99.0 [facility] ([place]) Comment on above: Performed By: #### C BC, MG, ANEU, GFR, CA125, CMP, ADIFF ####[place] [address] Platelet 202 10 3/mcL Normal 150-450 [facility] ([place]) Comment on above: Performed By: #### C BC, MG, ANEU, GFR, CA125, CMP, ADIFF ####[place] [address] Platelet mean volume (Bld) [Entitic vol] 9.2 fL Normal 6.6-10.5 [facility] ([place]) Comment on above: Performed By: #### C BC, MG, ANEU, GFR, CA125, CMP, ADIFF ####[place] [id number] [address] [place] [address] RBC 3.95 10 6/mcL Low 4.10-5.30 [facility] ([place]) Comment on above: Performed By: #### C BC, MG, ANEU, GFR, CA125, CMP, ADIFF ####[place] [id number] [address] [place] [address] WBC 6.4 10 3/mcL Normal 4.5-10.8 [facility] ([place]) Comment on above: Performed By: #### C BC, MG, ANEU, GFR, CA125, CMP, ADIFF ####[address] [address] CMPon 05-11-2024 Albumin Level 3.8 G/dL Normal 3.2-4.8 [facility] ([place]) Comment on above: Performed By: #### U A #### [place] [address] Albumin/Globulin [Mass ratio] 1.3 {ratio} Normal 0.9-1.6 [facility] ([place]) Comment on above: Performed By: #### U A #### [place] [id number] ALP [Catalytic activity/Vol] 84 U/L Normal 38-126 [facility] ([place]) Comment on above: Performed By: #### U A #### [place] [address] ALT [Catalytic activity/Vol] 42 U/L Normal 10-49 [facility] ([place]) Comment on above: Performed By: #### U A #### [place] [id number] AST [Catalytic activity/Vol] 28 U/L Normal 8-34 [facility] ([place]) Comment on above: Performed By: #### U A #### [place] [id number] Bili Total 0.40 mg/dL Normal 0.20-1.20 [facility] ([place]) Comment on above: Result Comment: Use of this assay is not recommended for patients undergoing treatment with eltrombopag due to the potential for falsely elevated results. Performed By: #### U A #### [place] [id number] BUN/Creatinine Ratio 23.4 ratio High 10.0-22.0 [facility] ([place]) Comment on above: Performed By: #### U A #### [address] [address] Calcium [Mass/Vol] 9.5 mg/dL Normal 8.7-10.4 [facility] ([place]) Comment on above: Performed By: #### U A #### [address] [address] Chloride [Moles/Vol] 107 mmol/L Normal 98-110 [facility] ([place]) Comment on above: Performed By: #### U A #### [place] [id number] CO2 [Moles/Vol] 28 mmol/L Normal 22-32 [facility] ([place]) Comment on above: Performed By: #### U A #### [place] [id number] Creatinine [Mass/Vol] 0.64 mg/dL Normal 0.50-1.20 [facility] ([place]) Comment on above: Performed By: #### U A #### [place] [id number] Electrolyte Balance 5.0 mEq/L Normal 4.0-15.0 [facility] ([place]) Comment on above: Performed By: #### U A #### [address] [address] Globulin 2.9 G/dL Normal 1.5-3.8 [facility] ([place]) Comment on above: Performed By: #### U A #### [place] [id number] Glucose [Mass/Vol] 119 mg/dL High 70-110 [facility] ([place]) Comment on above: Performed By: #### U A #### [place] [id number] Potassium [Moles/Vol] 4.0 mmol/L Normal 3.5-5.0 [facility] ([place]) Comment on above: Performed By: #### U A #### [address] [address] Sodium [Moles/Vol] 140 mmol/L Normal 136-145 [facility] ([place]) Comment on above: Performed By: #### U A #### [address] [address] Total Protein 6.7 G/dL Normal 5.7-8.2 [facility] ([place]) Comment on above: Result Comment: No te - New Reference Range in effect 20 Performed By: #### U A #### [address] [address] Urea nitrogen [Mass/Vol] 15.0 mg/dL Normal 8.0-22.0 [facility] ([place]) Comment on above: Performed By: #### U A #### [address] [address] LABORATORYOrdered By: SYSTEM SYSTEM on 05-11-2024 Albumin BCP dye [Mass/Vol] 3.8 G/dL Normal 3.2 - 4.8 G/dL ADM SS Albumin/Globulin [Mass ratio] 1.3 {ratio} Normal 0.9 - 1.6 ratio ADM SS ALP [Catalytic activity/Vol] 84 U/L Normal 38 - 126 U/L ADM SS ALT No additional P-5'-P [Catalytic activity/Vol] 42 U/L Normal 10 - 49 U/L ADM SS AST [Catalytic activity/Vol] 28 U/L Normal 8 - 34 U/L ADM SS Basophils (Bld) [#/Vol] 0.0 103/mcL Normal 0.0 - 0.3 10^3/mcL Workflow SS Basophils/100 WBC (Bld) 0.5 % Normal 0.0 - 2.5 % Workflow SS Bilirubin [Mass/Vol] 0.40 mg/dL Normal 0.20 - 1.20 mg/dL ADM SS Comment on above: Interpretive Data: U se of this assay is not recommended for patients undergoing treatment with eltrombopag due to the potential for falsely elevated results. Calcium [Mass/Vol] 9.5 mg/dL Normal 8.7 - 10. 4 mg/dL ADM SS Cancer Ag 125 Qn 446.0 [arb'U]/mL High 2.0 - 3 5.0 U/mL ADM Comment on above: Interpretive Data: T esting performed on the [employer] IM analyzer using direct chemiluminesent technology. Patient results determined by assays using different manufacturers for methods may not be comparable. Chloride [Moles/Vol] 107 mmol/L Normal 98 - 11 0 mEq/L ADM SS CO2 [Moles/Vol] 28 mmol/L Normal 22 - 32 mEq/L ADM SS Creatinine [Mass/Vol] 0.64 mg/dL Normal 0.50 - 1.20 mg/dL ADM Electrolyte Balance 5.0 mEq/L Normal 4.0 - 15 .0 mEq/L ADM SS Eosinophils (Bld) [#/Vol] 0.1 103/mcL Normal 0.0 - 0.7 10^3/mcL Workflow SS Eosinophils/100 WBC (Bld) 1.3 % Normal 0.0 - 6.0 % Workflow SS Erythrocyte distribution width (RBC) [Ratio] 14.9 % Normal 11.5 - 15.5 % Workflow SS GFR/1.73 sq M.predicted among blacks MDRD (S/P/Bld) [Vol rate/Area] ml/min/1.73sqm Invalid Interpretation Code ADM SS Comment on above: Interpretive Data: GFR Population mean for , Non- Americans Ages 20-29 = 116 mL/min/1.73 sq.m. Ages 30-39 = 107 mL/min/1.73 sq.m. Ages 40-49 = 99 mL/min/1.73 sq.m. Ages 50-59 = 93 mL/min/1.73 sq.m. Ages 60-69 = 85 mL/min/1.73 sq.m. Ages 70+ = 75 mL/min/1.73 sq.m. Chronic Kidney Disease: Less than 60 mL/min/1.73 square meters End Stage Renal Disease: Less than 15 mL/min/1.73 square meters GFR/1.73 sq M.predicted among non-blacks MDRD (S/P/Bld) [Vol rate/Area] ml/min/1.73sqm Invalid Interpretation Code ADM SS Comment on above: Interpretive Data: GFR Population mean for , Non- Americans Ages 20-29 = 116 mL/min/1.73 sq.m. Ages 30-39 = 107 mL/min/1.73 sq.m. Ages 40-49 = 99 mL/min/1.73 sq.m. Ages 50-59 = 93 mL/min/1.73 sq.m. Ages 60-69 = 85 mL/min/1.73 sq.m. Ages 70+ = 75 mL/min/1.73 sq.m. Chronic Kidney Disease: Less than 60 mL/min/1.73 square meters End Stage Renal Disease: Less than 15 mL/min/1.73 square meters Globulin 2.9 G/dL Normal 1.5 - 3.8 G/dL ADM SS Glucose [Mass/Vol] 119 mg/dL High 70 - 110 mg/dL ADM SS Hematocrit (Bld) [Volume fraction] 34.9 % Normal 34.0 - 46.0 % Workflow SS Hemoglobin (Bld) [Mass/Vol] 11.7 G/dL Low 12.0 - 16.0 G/dL Workflow SS Lymphocytes (Bld) [#/Vol] 0.9 103/mcL Normal 0.9 - 4.3 10^3/mcL Workflow SS Lymphocytes/100 WBC (Bld) 13.9 % Low 20.0 - 40.0 % Workflow SS Magnesium [Mass/Vol] 1.9 mg/dL Normal 1.6 - 2 .4 mg/dL ADM SS MCH (RBC) [Entitic mass] 29.7 pg Normal 27.0 - 33.0 pg Workflow SS MCHC 33.6 G/dL Normal 32.0 - 36.0 G/dL Workflow SS MCV (RBC) [Entitic vol] 88.4 fL Normal 80.0 - 99.0 fL Workflow SS Monocytes (Bld) [#/Vol] 0.5 103/mcL Normal 0.1 - 1.4 10^3/mcL AH Workflow SS Monocytes/100 WBC (Bld) 8.2 % Normal 2.0 - 13.0 % AH Workflow SS Neutrophils (Bld) [#/Vol] 4.9 103/mcL Normal 2.3 - 8.1 10^3/mcL AH Workflow SS Neutrophils/100 WBC (Bld) 76.1 % High 50.0 - 75.0 % AH Workflow SS Platelet mean volume (Bld) [Entitic vol] 9.2 fL Normal 6.6 - 10.5 fL AH Workflow SS Platelets (Bld) [#/Vol] 202 103/mcL Normal 150 - 450 10^3/mcL AH Workflow SS Potassium [Moles/Vol] 4.0 mmol/L Normal 3.5 - 5.0 mEq/L AH ADM SS Protein [Mass/Vol] 6.7 G/dL Normal 5.7 - 8.2 G/dL AH ADM SS Comment on above: Interpretive Data: * *Note - New Reference Range in effect 20 RBC (Bld) [#/Vol] 3.95 106/mcL Low 4.10 - 5.3 0 10^6/mcL AH Workflow SS Sodium [Moles/Vol] 140 mmol/L Normal 136 - 145 mEq/L ADM SS Urea nitrogen [Mass/Vol] 15.0 mg/dL Normal 8.0 - 22.0 mg/dL AH ADM SS Urea nitrogen/Creatinine [Mass ratio] 23.4 ratio High 10.0 - 22.0 ratio AH ADM SS WBC (Bld) [#/Vol] 6.4 103/mcL Normal 4.5 - 10.8 10^3/mcL AH Workflow SS MGon 05-11-2024 Magnesium [Mass/Vol] 1.9 mg/dL Normal 1.6-2.4 [facility] ([place]) Comment on above: Performed By: #### U A #### [place] [address] Supplemental Reporton 2023 Supplemental Report . Pathology Reports Accession: Collected Date/Time: Received Date/Time: Pathologist: [id number] 04/03/2024 14:57 EDT 04/06/2024 07:58 EDT NEO ARAGON MD Supplemental Report SUPPLEMENTAL: [facility] [address], [address] [address] [facility] Results: No potentially actionable variants and no reportable treatment options found. Genomic Variants Potentially Actionable/Biologically Relevant No reportable pathogenic variants were found. Tumor / Normal matched analysis (Potential germline) No normal sample was received, therefore tumor/normal matched analysis was not performed. Immunotherapy markers Tumor Mutational [place] 3.2 m/MB Microsatellite Instability Status MSI can not be assessed because the tumor content is below 30%. Treatment Implications No reportable treatment options found. [facility] xR Results: This report is being issued to report the results of gene rearrangement and altered splicing analysis from RNA sequencing. No gene rearrangements nor reportable altered splicing events were identified from RNA sequencing. Genomic Variants Potentially Actionable/ Biologically Relevant -No reportable pathogenic variants were found Treatment Implications -No reportable treatment options found [facility] RNA Results: Molecular Profile Expression Details: RNA under and over expression calls are not reported because the tumor content is below 30%. [facility] PD-L1 Expression: NEGATIVE Tumor Proportion Score (TPS): <1% Combined Positive Score (CPS): <1 HER2 (Other) - with Gastric Scoring Scoring: NEGATIVE Score: 0 Complete Report Scanned into chart. Pathology Reports Accession: Collected Date/Time: Received Date/Time: Pathologist: [id number] 04/03/2024 14:57 EDT 04/06/2024 07:58 EDT NEO ARAGON MD Electronically Signed by Diagnostic interpretation performed at [facility] NEO ARAGON Sign out Date: 05/11/2024 11:36 Performing Lab: [facility], [address] [place] [address] Pathology Dept Final Surgical Pathology Report DIAGNOSIS: A. PELVIC PERITONEUM: - DENSE FIBROUS TISSUE WITH PSAMMOMATOUS CALCIFICATION AND METASTATIC SEROUS PAPILLARY CARCINOMA B. LEFT GUTTER PARACOLIC: - POSITIVE FOR METASTATIC SEROUS PAPILLARY CARCINOMA WITH NUMEROUS PSAMMOMA BODIES C. UTERUS, CERVIX, BILATERAL FALLOPIAN TUBES, OVARIES, PELVIC SIDEWALL AND BLADDER PERITONEUM: - CERVIX -SQUAMOUS METAPLASIA AND NABOTHIAN CYST FORMATION - ENDOMETRIUM -EXTENSIVE SCARRING - MYOMETRIUM NO SIGNIFICANT PATHOLOGY - SEROSA EXTENSIVELY INVOLVED BY LOW-GRADE SEROUS PAPILLARY CARCINOMA - RIGHT FALLOPIAN TUBE -SEROSAL AND INTRALUMINAL IMPLANTS OF LOW-GRADE SEROUS PAPILLARY CARCINOMA - RIGHT OVARY -LOW-GRADE SEROUS PAPILLARY CARCINOMA, 11.4 CM GREATEST DIMENSION, WITH EXTENSIVE OVARIAN SURFACE INVOLVEMENT AND OVARIAN STROMAL INVASION - LEFT OVARY AND FALLOPIAN TUBE -EXTENSIVE INVOLVEMENT INCLUDING SURFACE INVOLVEMENT WITH LOW-GRADE SEROUS PAPILLARY CARCINOMA Comment: P53 stain is wild-type D. OMENTUM: - POSITIVE FOR METASTATIC LOW-GRADE SEROUS PAPILLARY CARCINOMA E. RIGHT AORTIC LYMPH NODES: - NEGATIVE FOR TUMOR OVARY or FALLOPIAN TUBE or PRIMARY PERITONEUM SPECIMEN PROCEDURE: Total hysterectomy and bilateral salpingo-oophorectomy, Omentectomy, Peritoneal biopsies SPECIMEN INTEGRITY: Not applicable TUMOR TUMOR SITE: BILATERAL OVARIES TUMOR SIZE: GREATEST DIMENSION (CENTIMETERS) - 11.4 cm HISTOLOGIC TYPE: Low grade serous carcinoma HISTOLOGIC GRADE: Low grade OVARIAN SURFACE INVOLVEMENT: Present, right and left FALLOPIAN TUBE SURFACE INVOLVEMENT: Present, right and left IMPLANTS: PRESENT (SITES) - Uterus, Pelvic peritoneum, Omentum OTHER TISSUE / ORGAN INVOLVEMENT: Right ovary, Left ovary, Right fallopian tube, Left fallopian tube, Uterine corpus, Pelvic peritoneum LARGEST EXTRAPELVIC PERITONEAL FOCUS: MACROSCOPIC (2 CM OR LESS) - Omentum PERITONEAL / ASCITIC FLUID INVOLVEMENT: Not submitted / unknown CHEMOTHERAPY RESPONSE SCORE (CRS): Not applicable REGIONAL LYMPH NODES REGIONAL LYMPH NODE STATUS: All regional lymph nodes negative for tumor cells NUMBER OF LYMPH NODES EXAMINED: 1 DISTANT METASTASIS DISTANT SITE(S) INVOLVED: Not applicable pTNM CLASSIFICATION (AJCC 8th Edition) Pathology Reports Accession: Collected Date/Time: Received Date/Time: Pathologist: [id number] 04/03/2024 14:57 EDT 04/06/2024 07:58 EDT NEO ARAGON MD DIAGNOSIS: Reporting of pT, pN, and (when applicable) pM categories is based on information available to the pathologist at the time the report is issued. As per the AJCC (Chapter 1, 8th Ed.) it is the managing physician's responsibility to establish the final pathologic stage based upon all pertinent information, including but potentially not limited to this pathology report. MODIFIED CLASSIFICATION: Not applicable PT CATEGORY: pT3b T S (more content not included)... Normal [facility] ([place]) .Auto Diffon 04-20-2024 Basophil, Absolute 0.0 10 3/mcL Normal 0.0-0.3 [facility]) Comment on above: Performed By: #### A BOBBI MABRY #### [facility] [address] [place] [address] Basophils/100 WBC (Bld) 0.3 % Normal 0.0-2.5 [facility] ([place]) Comment on above: Performed By: #### A BOBBI MABRY #### [address] [address] Eosinophil, Absolute 0.2 10 3/mcL Normal 0.0-0.7 [facility] ([place]) Comment on above: Performed By: #### A HAMZAH MABRYGEL #### [address] [address] Eosinophils/100 WBC (Bld) 2.5 % Normal 0.0-6.0 [facility] ([place]) Comment on above: Performed By: #### A HAMZAH MABRYGEL #### [address] [address] Lymphocyte, Absolute 1.6 10 3/mcL Normal 0.9-4.3 [facility] ([place]) Comment on above: Performed By: #### A HAMZAH MABRYGEL #### [address] [address] Lymphocytes/100 WBC (Bld) 17.6 % Low 20.0-40.0 [facility] ([place]) Comment on above: Performed By: #### A HAMZAH MABRYGEL #### [address] [address] Monocyte, Absolute 0.8 10 3/mcL Normal 0.1-1.4 [facility] ([place]) Comment on above: Performed By: #### A HAMZAH MABRYGEL #### [address] [address] Monocytes/100 WBC (Bld) 8.4 % Normal 2.0-13.0 [facility] ([place]) Comment on above: Performed By: #### A HAMZAH MABRYGEL #### [address] [address] Neutrophils/100 WBC (Bld) 71.2 % Normal 50.0-75.0 [facility] ([place]) Comment on above: Performed By: #### A HAMZAH MABRYGEL #### [address] [address] .GFRon 04-20-2024 GFR >60 Normal [facility] ([place]) Comment on above: Result Comment: GFR Population mean for , Non- Americans Ages 20-29 = 116 mL/min/1.73 sq.m. Ages 30-39 = 107 mL/min/1.73 sq.m. Ages 40-49 = 99 mL/min/1.73 sq.m. Ages 50-59 = 93 mL/min/1.73 sq.m. Ages 60-69 = 85 mL/min/1.73 sq.m. Ages 70+ = 75 mL/min/1.73 sq.m. Chronic Kidney Disease: Less than 60 mL/min/1.73 square meters End Stage Renal Disease: Less than 15 mL/min/1.73 square meters Performed By: #### A BOBBI MABRY #### [address] [address] GFR Non- >60 Normal [facility] ([place]) Comment on above: Result Comment: GFR Population mean for , Non- Americans Ages 20-29 = 116 mL/min/1.73 sq.m. Ages 30-39 = 107 mL/min/1.73 sq.m. Ages 40-49 = 99 mL/min/1.73 sq.m. Ages 50-59 = 93 mL/min/1.73 sq.m. Ages 60-69 = 85 mL/min/1.73 sq.m. Ages 70+ = 75 mL/min/1.73 sq.m. Chronic Kidney Disease: Less than 60 mL/min/1.73 square meters End Stage Renal Disease: Less than 15 mL/min/1.73 square meters Performed By: #### A BOBBI MABRY #### [address] [address] .NEUABSon 04-20-2024 Neutrophil, Absolute 6.3 10 3/mcL Normal 2.3-8.1 [facility] ([place]) Comment on above: Performed By: #### A BOBBI MABRY #### [address] [address] B12on 04-20-2024 Cobalamin (Vitamin B12) [Mass/Vol] 475 pg/mL Normal 211-911 [facility] ([place]) Comment on above: Order Comment: Pt mendoza ving port placed 04/20 so please draw labs while in Same Day. Thanks! Performed By: #### A BOBBI MABRY #### [address] [address] [id number] 04-20-2024 CA 125 181.0 U/mL High 2.0-35.0 [facility] ([place]) Comment on above: Order Comment: Pt mendoza ving port placed 8/5 so please draw labs while in Same Day. Thanks! Result Comment: Test ing performed on the TRSB Groupe analyzer using direct chemiluminesent technology. Patient results determined by assays using different manufacturers for methods may not be comparable. Performed By: #### A BOBBI MABRY #### [address] [address] CBCon 04-20-2024 Erythrocyte distribution width (RBC) [Ratio] 14.2 % Normal 11.5-15.5 [facility] ([place]) Comment on above: Order Comment: Pt mendoza ving port placed 8/5 so please draw labs while in Same Day. Thanks! Performed By: #### A BOBBI MABRY #### [address] [address] Hematocrit (Bld) [Volume fraction] 34.6 % Normal 34.0-46.0 [facility] ([place]) Comment on above: Order Comment: Pt mendoza ving port placed 8/5 so please draw labs while in Same Day. Thanks! Performed By: #### A BOBBI MABRY #### [address] [address] Hgb 11.8 G/dL Low 12.0-16.0 [facility] ([place]) Comment on above: Order Comment: Pt mendoza ving port placed 8/5 so please draw labs while in Same Day. Thanks! Performed By: #### A BOBBI MABRY #### [address] [address] MCH (RBC) [Entitic mass] 30.3 pg Normal 27.0-33.0 [facility] ([place]) Comment on above: Order Comment: Pt mendoza ving port placed 8/5 so please draw labs while in Same Day. Thanks! Performed By: #### A BOBBI MABRY #### [address] [address] MCHC 34.3 G/dL Normal 32.0-36.0 [facility] ([place]) Comment on above: Order Comment: Pt mendoza ving port placed 8/5 so please draw labs while in Same Day. Thanks! Performed By: #### A BOBBI MABRY #### [place] [id number] MCV (RBC) [Entitic vol] 88.4 fL Normal 80.0-99.0 [facility] ([place]) Comment on above: Order Comment: Pt mendoza ving port placed 8/5 so please draw labs while in Same Day. Thanks! Performed By: #### A BOBBI MABRY #### [place] [address] Platelet 242 10 3/mcL Normal 150-450 [facility] ([place]) Comment on above: Order Comment: Pt mendoza ving port placed 8/5 so please draw labs while in Same Day. Thanks! Performed By: #### A BOBBI MABRY #### [place] [address] Platelet mean volume (Bld) [Entitic vol] 9.9 fL Normal 6.6-10.5 [facility] ([place]) Comment on above: Order Comment: Pt mendoza ving port placed 8/5 so please draw labs while in Same Day. Thanks! Performed By: #### A BOBBI MABRY #### [place] [id number] RBC 3.91 10 6/mcL Low 4.10-5.30 [facility] ([place]) Comment on above: Order Comment: Pt mendoza ving port placed 8/5 so please draw labs while in Same Day. Thanks! Performed By: #### A BOBBI MABRY #### [address] [address] WBC 8.9 10 3/mcL Normal 4.5-10.8 [facility] ([place]) Comment on above: Order Comment: Pt mendoza ving port placed 8/5 so please draw labs while in Same Day. Thanks! Performed By: #### A BOBBI MABRY #### [address] [address] CMPon 04-20-2024 Albumin Level 3.3 G/dL Normal 3.2-4.8 [facility] ([place]) Comment on above: Order Comment: Pt mendoza ving port placed 8/5 so please draw labs while in Same Day. Thanks! Performed By: #### A BOBBI MABRY #### [address] [address] Albumin/Globulin [Mass ratio] 1.2 {ratio} Normal 0.9-1.6 [facility] ([place]) Comment on above: Order Comment: Pt mendoza ving port placed 8/5 so please draw labs while in Same Day. Thanks! Performed By: #### A BOBBI MABRY #### [address] [address] ALP [Catalytic activity/Vol] 91 U/L Normal 38-126 [facility] ([place]) Comment on above: Order Comment: Pt mendoza ving port placed 8/5 so please draw labs while in Same Day. Thanks! Performed By: #### A BOBBI MABRY #### [address] [address] ALT [Catalytic activity/Vol] 43 U/L Normal 10-49 [facility] ([place]) Comment on above: Order Comment: Pt mendoza ving port placed 8/5 so please draw labs while in Same Day. Thanks! Performed By: #### A BOBBI MABRY #### [address] [address] AST [Catalytic activity/Vol] 35 U/L High 8-34 [facility] ([place]) Comment on above: Order Comment: Pt mendoza ving port placed 8/5 so please draw labs while in Same Day. Thanks! Performed By: #### A BOBBI MABRY #### [address] [address] Bili Total 0.40 mg/dL Normal 0.20-1.20 [facility] ([place]) Comment on above: Order Comment: Pt mendoza ving port placed 8/5 so please draw labs while in Same Day. Thanks! Result Comment: Use of this assay is not recommended for patients undergoing treatment with eltrombopag due to the potential for falsely elevated results. Performed By: #### A BOBBI MABRY #### [address] [address] BUN/Creatinine Ratio 38.7 ratio High 10.0-22.0 [facility] ([place]) Comment on above: Order Comment: Pt mendoza ving port placed 8/5 so please draw labs while in Same Day. Thanks! Performed By: #### A BOBBI MABRY #### [address] [address] Calcium [Mass/Vol] 9.0 mg/dL Normal 8.7-10.4 [facility] ([place]) Comment on above: Order Comment: Pt mendoza ving port placed 8/5 so please draw labs while in Same Day. Thanks! Performed By: #### A BOBBI MABRY #### [place] [id number] Chloride [Moles/Vol] 109 mmol/L Normal 98-110 [facility] ([place]) Comment on above: Order Comment: Pt mendoza ving port placed 8/5 so please draw labs while in Same Day. Thanks! Performed By: #### A BOBBI MBARY #### [place] [id number] CO2 [Moles/Vol] 29 mmol/L Normal 22-32 [facility] ([place]) Comment on above: Order Comment: Pt mendoza ving port placed 8/5 so please draw labs while in Same Day. Thanks! Performed By: #### A BOBBI MABRY #### [place] [id number] Creatinine [Mass/Vol] 0.62 mg/dL Normal 0.50-1.20 [facility] ([place]) Comment on above: Order Comment: Pt mendoza ving port placed 8/5 so please draw labs while in Same Day. Thanks! Performed By: #### A BOBBI MABRY #### [place] [id number] Electrolyte Balance 3.0 mEq/L Low 4.0-15.0 [facility] ([place]) Comment on above: Order Comment: Pt mendoza ving port placed 8/5 so please draw labs while in Same Day. Thanks! Performed By: #### A BOBBI MABRY #### [address] [address] Globulin 2.7 G/dL Normal 1.5-3.8 [facility] ([place]) Comment on above: Order Comment: Pt mendoza ving port placed 8/5 so please draw labs while in Same Day. Thanks! Performed By: #### A BOBBI MABRY #### [address] [address] Glucose [Mass/Vol] 103 mg/dL Normal 70-110 [facility] ([place]) Comment on above: Order Comment: Pt mendoza ving port placed 8/5 so please draw labs while in Same Day. Thanks! Performed By: #### A BOBBI MABRY #### [address] [address] Potassium [Moles/Vol] 4.1 mmol/L Normal 3.5-5.0 [facility] ([place]) Comment on above: Order Comment: Pt mendoza ving port placed 8/5 so please draw labs while in Same Day. Thanks! Performed By: #### A BOBBI MABRY #### [address] [address] Sodium [Moles/Vol] 141 mmol/L Normal 136-145 [facility] ([place]) Comment on above: Order Comment: Pt mendoza ving port placed 8/5 so please draw labs while in Same Day. Thanks! Performed By: #### A BOBBI MABRY #### [address] [address] Total Protein 6.0 G/dL Normal 5.7-8.2 [facility] ([place]) Comment on above: Order Comment: Pt mendoza ving port placed 8/5 so please draw labs while in Same Day. Thanks! Result Comment: No te - New Reference Range in effect 20 Performed By: #### A BOBBI MABRY #### [place] [address] Urea nitrogen [Mass/Vol] 24.0 mg/dL High 8.0-22.0 [facility] ([place]) Comment on above: Order Comment: Pt mendoza ving port placed 8/5 so please draw labs while in Same Day. Thanks! Performed By: #### A BOBBI MABRY #### [place] [address] Jovani 04-20-2024 Ferritin [Mass/Vol] 62.6 ng/mL Normal 8.0-252.0 [facility] ([place]) Comment on above: Order Comment: Pt mendoza ving port placed 8/5 so please draw labs while in Same Day. Thanks! Performed By: #### A BOBBI MABRY #### [place] [address] FESon 04-20-2024 Iron [Mass/Vol] 37 ug/dL Low 50-170 [facility] ([place]) Comment on above: Order Comment: Pt mendoza ving port placed 8/5 so please draw labs while in Same Day. Thanks! Performed By: #### A BOBBI MABRY #### [place] [address] Iron Sat 13 % Normal [facility] ([place]) Comment on above: Order Comment: Pt mendoza ving port placed 8/5 so please draw labs while in Same Day. Thanks! Performed By: #### A BOBBI MABRY #### [place] [address] TIBC 283 mcg/dL Normal 250-500 [facility] ([place]) Comment on above: Order Comment: Pt mendoza ving port placed 8/5 so please draw labs while in Same Day. Thanks! Performed By: #### A BOBBI MABRY #### [place] [address] FOLon 04-20-2024 Folate 17.40 ng/mL Normal 5.38-24.00 [facility] ([place]) Comment on above: Order Comment: Pt mendoza ving port placed 8/5 so please draw labs while in Same Day. Thanks! Performed By: #### A BOBBI MABRY #### [facility] [address] [place] [address] LABORATORYOrdered By: SYSTEM SYSTEM on 04-20-2024 25-hydroxyvitamin D3 [Mass/Vol] 35.3 ng/mL Invalid Interpretation Code ADM SS Comment on above: Interpretive Data: I nterpretive Values Based on Total 25(OH)D: Severe Deficiency <20 ng/mL Mild to Moderate Deficiency 20-30 ng/mL Optimum Levels 30-100 ng/mL Toxicity Possible >100 ng/mL Albumin BCP dye [Mass/Vol] 3.3 G/dL Normal 3.2 - 4.8 G/dL ADM SS Albumin/Globulin [Mass ratio] 1.2 {ratio} Normal 0.9 - 1.6 ratio ADM SS ALP [Catalytic activity/Vol] 91 U/L Normal 38 - 126 U/L ADM SS ALT No additional P-5'-P [Catalytic activity/Vol] 43 U/L Normal 10 - 49 U/L ADM SS AST [Catalytic activity/Vol] 35 U/L High 8 - 34 U/L ADM SS Basophils (Bld) [#/Vol] 0.0 103/mcL Normal 0.0 - 0.3 10^3/mcL Workflow SS Basophils/100 WBC (Bld) 0.3 % Normal 0.0 - 2.5 % Workflow SS Bilirubin [Mass/Vol] 0.40 mg/dL Normal 0.20 - 1.20 mg/dL ADM SS Comment on above: Interpretive Data: U se of this assay is not recommended for patients undergoing treatment with eltrombopag due to the potential for falsely elevated results. Calcium [Mass/Vol] 9.0 mg/dL Normal 8.7 - 10. 4 mg/dL ADM SS Cancer Ag 125 Qn 181.0 [arb'U]/mL High 2.0 - 3 5.0 U/mL ADM SS Comment on above: Interpretive Data: T esting performed on the TRSB Groupe analyzer using direct chemiluminesent technology. Patient results determined by assays using different manufacturers for methods may not be comparable. Chloride [Moles/Vol] 109 mmol/L Normal 98 - 11 0 mEq/L ADM SS CO2 [Moles/Vol] 29 mmol/L Normal 22 - 32 mEq/L ADM SS Cobalamin (Vitamin B12) [Mass/Vol] 475 pg/mL Normal 211 - 911 pg/mL ADM SS Creatinine [Mass/Vol] 0.62 mg/dL Normal 0.50 - 1.20 mg/dL ADM SS Electrolyte Balance 3.0 mEq/L Low 4.0 - 15 .0 mEq/L ADM SS Eosinophils (Bld) [#/Vol] 0.2 103/mcL Normal 0.0 - 0.7 10^3/mcL Workflow SS Eosinophils/100 WBC (Bld) 2.5 % Normal 0.0 - 6.0 % Workflow SS Erythrocyte distribution width (RBC) [Ratio] 14.2 % Normal 11.5 - 15.5 % Workflow SS Ferritin [Mass/Vol] 62.6 ng/mL Normal 8.0 - 25 2.0 ng/mL ADM SS Folate [Mass/Vol] 17.40 ng/mL Normal 5.38 - 24. 00 ng/mL ADM SS GFR/1.73 sq M.predicted among blacks MDRD (S/P/Bld) [Vol rate/Area] ml/min/1.73sqm Invalid Interpretation Code [email or web address] S Comment on above: Interpretive Data: GFR Population mean for , Non- Americans Ages 20-29 = 116 mL/min/1.73 sq.m. Ages 30-39 = 107 mL/min/1.73 sq.m. Ages 40-49 = 99 mL/min/1.73 sq.m. Ages 50-59 = 93 mL/min/1.73 sq.m. Ages 60-69 = 85 mL/min/1.73 sq.m. Ages 70+ = 75 mL/min/1.73 sq.m. Chronic Kidney Disease: Less than 60 mL/min/1.73 square meters End Stage Renal Disease: Less than 15 mL/min/1.73 square meters GFR/1.73 sq M.predicted among non-blacks MDRD (S/P/Bld) [Vol rate/Area] ml/min/1.73sqm Invalid Interpretation Code [employer] S Comment on above: Interpretive Data: GFR Population mean for , Non- Americans Ages 20-29 = 116 mL/min/1.73 sq.m. Ages 30-39 = 107 mL/min/1.73 sq.m. Ages 40-49 = 99 mL/min/1.73 sq.m. Ages 50-59 = 93 mL/min/1.73 sq.m. Ages 60-69 = 85 mL/min/1.73 sq.m. Ages 70+ = 75 mL/min/1.73 sq.m. Chronic Kidney Disease: Less than 60 mL/min/1.73 square meters End Stage Renal Disease: Less than 15 mL/min/1.73 square meters Globulin 2.7 G/dL Normal 1.5 - 3.8 G/dL ADM SS Glucose [Mass/Vol] 103 mg/dL Normal 70 - 110 mg/dL ADM SS Hematocrit (Bld) [Volume fraction] 34.6 % Normal 34.0 - 46.0 % Workflow SS Hemoglobin (Bld) [Mass/Vol] 11.8 G/dL Low 12.0 - 16.0 G/dL AH Workflow SS Iron [Mass/Vol] 37 ug/dL Low 50 - 170 mcg/dL ADM SS Iron binding capacity [Mass/Vol] 283 mcg/dL Normal 250 - 500 mcg/dL ADM SS Iron saturation [Mass fraction] 13 % Invalid Interpretation Code ADM SS Lymphocytes (Bld) [#/Vol] 1.6 103/mcL Normal 0.9 - 4.3 10^3/mcL AH Workflow SS Lymphocytes/100 WBC (Bld) 17.6 % Low 20.0 - 40.0 % Workflow SS Magnesium [Mass/Vol] 1.8 mg/dL Normal 1.6 - 2 .4 mg/dL ADM SS MCH (RBC) [Entitic mass] 30.3 pg Normal 27.0 - 33.0 pg Workflow SS MCHC 34.3 G/dL Normal 32.0 - 36.0 G/dL Workflow SS MCV (RBC) [Entitic vol] 88.4 fL Normal 80.0 - 99.0 fL AH Workflow SS Monocytes (Bld) [#/Vol] 0.8 103/mcL Normal 0.1 - 1.4 10^3/mcL AH Workflow SS Monocytes/100 WBC (Bld) 8.4 % Normal 2.0 - 13.0 % Workflow SS Neutrophils (Bld) [#/Vol] 6.3 103/mcL Normal 2.3 - 8.1 10^3/mcL AH Workflow SS Neutrophils/100 WBC (Bld) 71.2 % Normal 50.0 - 75.0 % AH Workflow SS Platelet mean volume (Bld) [Entitic vol] 9.9 fL Normal 6.6 - 10.5 fL AH Workflow SS Platelets (Bld) [#/Vol] 242 103/mcL Normal 150 - 450 10^3/mcL AH Workflow SS Potassium [Moles/Vol] 4.1 mmol/L Normal 3.5 - 5.0 mEq/L AH ADM SS Protein [Mass/Vol] 6.0 G/dL Normal 5.7 - 8.2 G/dL AH ADM SS Comment on above: Interpretive Data: * *Note - New Reference Range in effect 20 RBC (Bld) [#/Vol] 3.91 106/mcL Low 4.10 - 5.3 0 10^6/mcL AH Workflow SS Sodium [Moles/Vol] 141 mmol/L Normal 136 - 145 mEq/L ADM SS Urea nitrogen [Mass/Vol] 24.0 mg/dL High 8.0 - 22.0 mg/dL AH ADM SS Urea nitrogen/Creatinine [Mass ratio] 38.7 ratio High 10.0 - 22.0 ratio AH ADM SS WBC (Bld) [#/Vol] 8.9 103/mcL Normal 4.5 - 10.8 10^3/mcL Workflow SS MGon 04-20-2024 Magnesium [Mass/Vol] 1.8 mg/dL Normal 1.6-2.4 [facility] ([place]) Comment on above: Order Comment: Pt mendoza ving port placed 8/5 so please draw labs while in Same Day. Thanks! Performed By: #### A BOBBI MABRY #### [place] [id number] [place] [address] VIDHon 04-20-2024 Vit. D 25-Hydroxy 35.3 ng/mL Normal [facility] ([place]) Comment on above: Order Comment: Pt mendoza ving port placed 8/5 so please draw labs while in Same Day. Thanks! Result Comment: Inte rpretive Values Based on Total 25(OH)D: Severe Deficiency <20 ng/mL Mild to Moderate Deficiency 20-30 ng/mL Optimum Levels 30-100 ng/mL Toxicity Possible >100 ng/mL Performed By: #### A BOBBI MABRY #### [place] [id number] [place] [id number] [address] ABD/PELVIS W/ IV CONTRAST ONLYon 04-09-2024 CT ABD/PELVIS W/ IV CONTRAST ONLY ORIGINAL EXAMINATION: CT OF THE ABDOMEN AND PELVIS WITH CONTRAST 04/08/2024 11:54 pm TECHNIQUE: CT of the abdomen and pelvis was performed with the administration of intravenous contrast. Multiplanar reformatted images are provided for review. Automated exposure control, iterative reconstruction, and/or weight based adjustment of the mA/kV was utilized to reduce the radiation dose to as low as reasonably achievable. COMPARISON: Ultrasound pelvis on 03/23/2024 HISTORY: ORDERING SYSTEM PROVIDED HISTORY: Reason for Exam: post op pain, redness abdomen Hysterectomy on 04/03/2024 FINDINGS: Lower Chest: No acute findings. Organs: The liver, biliary tree, pancreas, spleen, adrenal glands, kidneys, and ureters show no sign of acute abnormality. GI/Bowel: None there is no intestinal obstruction or inflammation. Appendix is been removed. There is no abnormal fluid collection in the abdomen. A small amount of free intraperitoneal air is present. Pelvis: Uterus is been removed. Urinary bladder is partly distended with no sign of abnormality. There is a small amount of free fluid in the pelvic cul-de-sac. There is no loculated fluid collection and no pelvic hematoma. There is no adnexal abnormality. Peritoneum/Retroperiton eum: Abdominal aorta and inferior vena cava are normal in size. There is no retroperitoneal lymph node enlargement or hematoma. Bones/Soft Tissues: There is prominent soft tissue gas in the abdominal wall, mostly in the left lower abdomen. Moderate subcutaneous edema is in the lower anterior abdominal wall is also present. There is no loculated fluid collection. There is small amount of soft tissue gas in the abdominal wall musculature. IMPRESSION: 1. Status post hysterectomy. There is a small amount of free fluid in the pelvic cul-de-sac. There is no loculated fluid collection or pelvic hematoma. 2. Prominent soft tissue gas and edema in the abdominal wall, mostly in the left lower abdomen. The amount of soft tissue gas is larger than expected for 5 days postoperative, especially the gas located in the left lower abdomen, and subcutaneous gas-forming infection is not excluded. 3. Small amount of free intraperitoneal air is likely due to recent surgery. Interpreted by: Ben Celeste MD Preliminary Report By: Ben Celeste MD Electronically signed By Ben Celeste MD Dictated Date: 04/08/2024 11:56:46 PM Prelim Date: 04/09/2024 12:04:36 AM Sign Date: 04/09/2024 12:04:36 AM Ordering Provider: GEMMA FENG [facility] ([place]) Final Surgical Pathology Rep annabel 04-09-2024 Final Surgical Pathology Report . Pathology Reports Accession: Collected Date/Time: Received Date/Time: Pathologist: [id number] 04/03/2024 14:57 EDT 04/06/2024 07:58 EDT NEO ARAGON MD Final Surgical Pathology Report DIAGNOSIS: A. PELVIC PERITONEUM: - DENSE FIBROUS TISSUE WITH PSAMMOMATOUS CALCIFICATION AND METASTATIC SEROUS PAPILLARY CARCINOMA B. LEFT GUTTER PARACOLIC: - POSITIVE FOR METASTATIC SEROUS PAPILLARY CARCINOMA WITH NUMEROUS PSAMMOMA BODIES C. UTERUS, CERVIX, BILATERAL FALLOPIAN TUBES, OVARIES, PELVIC SIDEWALL AND BLADDER PERITONEUM: - CERVIX -SQUAMOUS METAPLASIA AND NABOTHIAN CYST FORMATION - ENDOMETRIUM -EXTENSIVE SCARRING - MYOMETRIUM NO SIGNIFICANT PATHOLOGY - SEROSA EXTENSIVELY INVOLVED BY LOW-GRADE SEROUS PAPILLARY CARCINOMA - RIGHT FALLOPIAN TUBE -SEROSAL AND INTRALUMINAL IMPLANTS OF LOW-GRADE SEROUS PAPILLARY CARCINOMA - RIGHT OVARY -LOW-GRADE SEROUS PAPILLARY CARCINOMA, 11.4 CM GREATEST DIMENSION, WITH EXTENSIVE OVARIAN SURFACE INVOLVEMENT AND OVARIAN STROMAL INVASION - LEFT OVARY AND FALLOPIAN TUBE -EXTENSIVE INVOLVEMENT INCLUDING SURFACE INVOLVEMENT WITH LOW-GRADE SEROUS PAPILLARY CARCINOMA Comment: P53 stain is wild-type D. OMENTUM: - POSITIVE FOR METASTATIC LOW-GRADE SEROUS PAPILLARY CARCINOMA E. RIGHT AORTIC LYMPH NODES: - NEGATIVE FOR TUMOR OVARY or FALLOPIAN TUBE or PRIMARY PERITONEUM SPECIMEN PROCEDURE: Total hysterectomy and bilateral salpingo-oophorectomy, Omentectomy, Peritoneal biopsies SPECIMEN INTEGRITY: Not applicable TUMOR TUMOR SITE: BILATERAL OVARIES TUMOR SIZE: GREATEST DIMENSION (CENTIMETERS) - 11.4 cm HISTOLOGIC TYPE: Low grade serous carcinoma HISTOLOGIC GRADE: Low grade OVARIAN SURFACE INVOLVEMENT: Present, right and left FALLOPIAN TUBE SURFACE INVOLVEMENT: Present, right and left IMPLANTS: PRESENT (SITES) - Uterus, Pelvic peritoneum, Omentum OTHER TISSUE / ORGAN INVOLVEMENT: Right ovary, Left ovary, Right fallopian tube, Left fallopian tube, Uterine corpus, Pelvic peritoneum LARGEST EXTRAPELVIC PERITONEAL FOCUS: MACROSCOPIC (2 CM OR LESS) - Omentum PERITONEAL / ASCITIC FLUID INVOLVEMENT: Not submitted / unknown CHEMOTHERAPY RESPONSE SCORE (CRS): Not applicable REGIONAL LYMPH NODES REGIONAL LYMPH NODE STATUS: All regional lymph nodes negative for tumor cells NUMBER OF LYMPH NODES EXAMINED: 1 DISTANT METASTASIS DISTANT SITE(S) INVOLVED: Not applicable pTNM CLASSIFICATION (AJCC 8th Edition) Reporting of pT, pN, and (when applicable) pM categories is based on information available to the pathologist at the time the report is issued. As per the AJCC (Chapter 1, 8th Ed.) it is the managing physician's responsibility to establish the final pathologic stage based upon all pertinent information, including but potentially not limited to this pathology report. MODIFIED CLASSIFICATION: Not applicable Pathology Reports Accession: Collected Date/Time: Received Date/Time: Pathologist: [id number] 04/03/2024 14:57 EDT 04/06/2024 07:58 EDT NEO ARAGON MD DIAGNOSIS: PT CATEGORY: pT3b T SUFFIX: Not applicable PN CATEGORY: pN0 N SUFFIX: Not applicable PM CATEGORY: Not applicable - pM cannot be determined from the submitted specimen(s) FIGO STAGE FIGO STAGE: IIIB FUR NAILER TUMOR BLOCK(S): C16 CLINICAL INFORMATION: Procedure: ROBOTIC HYSTERECTOMY WITH BILATERAL SALPINGO - OOPHORECTOMY, DEBULKING OF OVARIAN CANCER, OMENTECTOMY, AORTIC LYMPH NODE DISSECTION Preoperative diagnosis: PELVIC MASS Postoperative diagnosis: PELVIC MASS SPECIMEN: A PELVIC PERITONEUM - FROZEN SECTION B LEFT PARACOLIC GUTTER C UTERUS, CERVIX, BILATERAL FALLOPIAN TUBES AND OVARIES, PELVIC SIDE WALL AND BLADDER PERITONEUM D OMENTUM E RIGHT AORTIC LYMPH NODES INTRAOPERATIVE CONSULTATION: A FS: FIBROUS TISSUE WITH PSAMMOMA BODIES. performed by Kathie Aragon M.D. GROSS DESCRIPTION: All parts labelled with patient name and [id number] A. Received fresh for frozen section labelled pelvic peritoneum Are 3 lopez tissue fragments ranging from 0.2 to 0.5 cm. AFS1 -frozen section tissue resubmitted. TS-1 B. Received in formalin labelled left gutter paracolic Are 3 lopez-valderrama tissue fragments ranging from 0.4 to 0.5 cm. TS-1 C. Received in formalin labelled uterus, cervix, bilateral fallopian tubes, ovaries, pelvic sidewall and bladder peritoneum , specimen consists of a uterus cervix with attached right fallopian tube and right ovary, remnant of possible left fallopian tube and no left ovary with additional pelvic sidewall and bladder peritoneum Weight/dimensions - 468 g and measures 9.1 cm (fundus to cervix), 6 cm (cornu to cornu), 5.2 cm (anterior to posterior). Serosa - lopez brown to valderrama with multiple adherent nodules and adhesions both in the fundus and posterior aspect. Cervix/endocervix - 3.5 cm in diameter and 3.5 cm in length. Endometrium - obliterated endometrial cavity with focal areas of scarring. Myometrium - lopez-pink measuring up to 2.5 cm (more content not included)... Normal [facility] ([place]) .Auto Diffon 04-08-2024 Basophil, Absolute 0.0 10 3/mcL Normal 0.0-0.2 [facility] ([place]) Comment on above: Performed By: #### G , MIRANDA, ADSUNNI, RASHEL, BRIANNE, CBC ####[address] [place], [place] [address] Basophils/100 WBC (Bld) 0.4 % Normal 0.0-2.5 [facility] ([place]) Comment on above: Performed By: #### G FR, ANEU, ADIFF, RASHEL, BRIANNE, CBC ####[address] [place], [place] [address] Eosinophil, Absolute 0.2 10 3/mcL Normal 0.0-0.4 [facility] ([place]) Comment on above: Performed By: #### G FR, ANEU, ADIFF, RASHEL, W, CBC ####[address] [place], [place] [address] Eosinophils/100 WBC (Bld) 1.6 % Normal 0.0-7.0 [facility] ([place]) Comment on above: Performed By: #### G FR, ANEU, ADIFF, RASHEL, W, CBC ####[address] [place], [place] [address] Lymphocyte, Absolute 1.5 10 3/mcL Normal 0.8-3.9 [facility] ([place]) Comment on above: Performed By: #### G FR, ANEU, ADIFF, BMP, W, CBC ####[address] [place], [place] [address] Lymphocytes/100 WBC (Bld) 13.0 % Normal 10.0-50.0 [facility] ([place]) Comment on above: Performed By: #### G , TORRIE JEAN BMP, MDW, CBC ####[address] [place], [place] [address] Monocyte, Absolute 0.9 10 3/mcL Normal 0.2-1.0 [facility] ([place]) Comment on above: Performed By: #### G , TORRIE JEAN, BRIANNE KISER, CBC ####[address] [place], [place] [address] Monocytes/100 WBC (Bld) 7.9 % Normal 1.7-13.0 [facility] ([place]) Comment on above: Performed By: #### G , TORRIE JEAN, BRIANNE KISER, CBC ####[address] [place], [place] [address] Neutrophils/100 WBC (Bld) 77.1 % Normal 37.0-80.0 [facility] ([place]) Comment on above: Performed By: #### G , MIRANDA, RASHEL BROWNLEE MDW, CBC ####[address] [place], [place] [address] .GFRon 04-08-2024 GFR Non- 70 ml/min/1.73sqm Normal [facility] ([place]) Comment on above: Result Comment: GFR Population mean for , Non- Americans Ages 20-29 = 116 mL/min/1.73 sq.m. Ages 30-39 = 107 mL/min/1.73 sq.m. Ages 40-49 = 99 mL/min/1.73 sq.m. Ages 50-59 = 93 mL/min/1.73 sq.m. Ages 60-69 = 85 mL/min/1.73 sq.m. Ages 70+ = 75 mL/min/1.73 sq.m. Chronic Kidney Disease: Less than 60 mL/min/1.73 square meters End Stage Renal Disease: Less than 15 mL/min/1.73 square meters Performed By: #### G FR, ANEU, ADSUNNI, RASHEL, BRIANNE, CBC ####[address] [place], [place] [address] GFR 85 ml/min/1.73sqm Normal [facility] ([place]) Comment on above: Result Comment: GFR Population mean for , Non- Americans Ages 20-29 = 116 mL/min/1.73 sq.m. Ages 30-39 = 107 mL/min/1.73 sq.m. Ages 40-49 = 99 mL/min/1.73 sq.m. Ages 50-59 = 93 mL/min/1.73 sq.m. Ages 60-69 = 85 mL/min/1.73 sq.m. Ages 70+ = 75 mL/min/1.73 sq.m. Chronic Kidney Disease: Less than 60 mL/min/1.73 square meters End Stage Renal Disease: Less than 15 mL/min/1.73 square meters Performed By: #### G , TORRIE JEAN BMP, MDW, CBC ####[address] [place], [place] [address] .MDWon 04-08-2024 Monocyte Distribution Width 18.55 Normal 0.00-20.00 [facility] ([place]) Comment on above: Result Comment: For ED adult patients suspected of sepsis, MDW<=20.0 does not rule out sepsis or risk of sepsis Performed By: #### G MIRANDA VINCENT ADIFF, BMP, MDW, CBC ####[address] [place], [place] [address] .NEUABSon 04-08-2024 Neutrophil, Absolute 9.0 10 3/mcL High 2.9-6.2 [facility] ([place]) Comment on above: Performed By: #### G , MIRANDA, TORRIE, RASHEL, BRIANNE, CBC ####[address] [place], [place] [address] BMPon 04-08-2024 BUN/Creatinine Ratio 18 ratio Normal 7-27 [facility] ([place]) Comment on above: Performed By: #### G FR, ANEU, ADSUNNI, RASHEL, BRIANNE, CBC ####[address] [place], [place] [address] Calcium [Mass/Vol] 9.3 mg/dL Normal 8.4-10.2 [facility] ([place]) Comment on above: Performed By: #### MIRANDA DELACRUZ ADIFF, BMP, MDW, CBC ####[address] [place], [place] [address] Chloride [Moles/Vol] 106 mmol/L Normal 98-107 [facility] ([place]) Comment on above: Performed By: #### G , TORRIE JEAN BMP, MDW, CBC ####[address] [place], [place] [address] CO2 [Moles/Vol] 32 mmol/L High 22-29 [facility] ([place]) Comment on above: Performed By: #### G MIRANDA VINCENT ADIFF, BMP, MDW, CBC ####[address] [place], [place] [address] Creatinine [Mass/Vol] 0.88 mg/dL Normal 0.55-1.02 [facility] ([place]) Comment on above: Performed By: #### MIRANDA DELACRUZ ADIFF, BRIANNE KISER, CBC ####[address] [place], [place] [address] Electrolyte Balance 4.0 mEq/L Normal 4.0-15.0 [facility] ([place]) Comment on above: Performed By: #### Sal VINCENT, TORRIE JEAN, BRIANNE KISER, CBC ####[address] [place], [place] [address] Glucose [Mass/Vol] 97 mg/dL Normal 70-105 [facility] ([place]) Comment on above: Performed By: #### G , TORRIE JEAN, BRIANNE KISER, CBC ####[address] [place], [place] [address] Potassium [Moles/Vol] 4.0 mmol/L Normal 3.5-5.1 [facility] ([place]) Comment on above: Performed By: #### Sal VINCENT, MIRANDA, TORRIE, RASHEL, BRIANNE, CBC ####[address] [place], [place] [address] Sodium [Moles/Vol] 142 mmol/L Normal 136-145 [facility] ([place]) Comment on above: Performed By: #### G MIRANDA VINCENT ADIFF, BMP, MDW, CBC ####[address] [place], [place] [address] Urea nitrogen [Mass/Vol] 16 mg/dL Normal 7-18 [facility] ([place]) Comment on above: Performed By: #### G MIRANDA VINCENT ADIFF, BMP, MDW, CBC ####[address] [place], [place] [address] CBCon 04-08-2024 Erythrocyte distribution width (RBC) [Ratio] 14.0 % Normal 11.5-14.5 [facility] ([place]) Comment on above: Performed By: #### G MIRANDA VINCENT ADIFF, BMP, MDW, CBC ####[address] [place], [place] [address] Hematocrit (Bld) [Volume fraction] 39.7 % Normal 37.0-47.0 [facility] ([place]) Comment on above: Performed By: #### G MIRANDA VINCENT ADIFF, BMP, MDW, CBC ####[address] [place], [place] [address] Hgb 13.2 G/dL Normal 12.0-16.0 [facility] ([place]) Comment on above: Performed By: #### G MIRANDA VINCENT ADIFF, BMP, MDW, CBC ####[address] [place], [place] [address] MCH (RBC) [Entitic mass] 29.7 pg Normal 27.0-31.2 [facility] ([place]) Comment on above: Performed By: #### G MIRANDA VINCENT ADIFF, BMP, MDW, CBC ####[address] [place], [place] [address] MCHC 33.3 G/dL Normal 33.0-37.0 [facility] ([place]) Comment on above: Performed By: #### MIRANDA DELACRUZ ADIFF, BRIANNE KISER, CBC ####[address] [place], [place] [address] MCV (RBC) [Entitic vol] 89.2 fL Normal 80.0-94.0 [facility] ([place]) Comment on above: Performed By: #### G , TORRIE JEAN, RASHEL, BRIANNE, CBC ####[address] [place], [place] [address] Platelet 296 10 3/mcL Normal 130-400 [facility] ([place]) Comment on above: Performed By: #### G , TORRIE JEAN, RASHEL, BRIANNE, CBC ####[address] [place], [place] [address] Platelet mean volume (Bld) [Entitic vol] 9.1 fL Normal 7.4-10.4 [facility] ([place]) Comment on above: Performed By: #### Sal VINCENT, TORRIE JEAN, RASHEL, BRIANNE, CBC ####[address] [place], [place] [address] RBC 4.45 10 6/mcL Normal 4.20-5.40 [facility] ([place]) Comment on above: Performed By: #### G , MIRANDA, TORRIE, RASHEL, BRIANNE, CBC ####[address] [place], [place] [address] WBC 11.7 10 3/mcL High 4.6-10.8 [facility] ([place]) Comment on above: Performed By: #### Sal VINCENT, TORRIE JEAN, RASHEL, BRIANNE, CBC ####[address] [place], [place] [address] LABORATORYOrdered By: Lorenza Jeronimo on 04-08-2024 Appearance (U) Clear (04/08/24 11:09 PM) Normal Clear AO Auto Urine SS Bilirubin Ql (U) Negative (04/08/24 11:09 PM) Normal Negative AO Auto Urine SS Color (U) Yellow (04/08/24 11:09 PM) Normal AO Auto Urine SS Glucose Test strip (U) [Mass/Vol] Negative Normal Negative AO Auto Urine SS Hemoglobin Auto test strip (U) [Mass/Vol] Trace *ABN* (04/08/24 11:09 PM) Invalid Interpretation Code Negative AO Auto Urine SS Ketones Ql (U) Negative Normal Negative AO Auto Ur ine SS UA Leuk Est Negative (04/08/24 11:09 PM) Normal Negative AO Auto Urine SS UA Nitrite Negative (04/08/24 11:09 PM) Normal Negative AO Auto Urine SS UA pH 5.5 (04/08/24 11:09 PM) Normal 5.0 - 8.0 AO Auto Urine SS UA Protein Negative Normal Negative AO Auto Urine SS UA Spec Grav 1.020 (04/08/24 11:09 PM) Normal 1.015-1.025 AO Auto Urine SS UA Specimen Type Clean Catch (04/08/24 11:09 PM) Normal AO Auto Urine SS UA Urobilinogen 0.2 E.U./dL Normal 0.2-1.0 AO Auto Urine SS LABORATORYOrdered By: SYSTEM SYSTEM on 04-08-2024 Basophil, Absolute 0.0 103/mcL Normal 0.0 - 0.2 10^3/mcL AO Workflow SS Basophils/100 WBC (Bld) 0.4 % Normal 0.0 - 2.5 % AO Workflow SS Calcium [Mass/Vol] 9.3 mg/dL Normal 8.4 - 10. 2 mg/dL AO ADM SS Chloride [Moles/Vol] 106 mmol/L Normal 98 - 10 7 mmol/L AO ADM SS CO2 [Moles/Vol] 32 mmol/L High 22 - 29 mmol/L AO ADM SS Creatinine [Mass/Vol] 0.88 mg/dL Normal 0.55 - 1.02 mg/dL AO ADM SS Electrolyte Balance 4.0 mEq/L Normal 4.0 - 15 .0 mEq/L AO ADM SS Eosinophil, Absolute 0.2 103/mcL Normal 0.0 - 0 .4 10^3/mcL AO Workflow SS Eosinophils/100 WBC (Bld) 1.6 % Normal 0.0 - 7.0 % AO Workflow SS Erythrocyte distribution width (RBC) [Ratio] 14.0 % Normal 11.5 - 14.5 % AO Workflow SS GFR/1.73 sq M.predicted among blacks MDRD (S/P/Bld) [Vol rate/Area] 85 ml/min/1.73sqm Invalid Interpretation Code AO Chemistry S Comment on above: Interpretive Data: GFR Population mean for , Non- Americans Ages 20-29 = 116 mL/min/1.73 sq.m. Ages 30-39 = 107 mL/min/1.73 sq.m. Ages 40-49 = 99 mL/min/1.73 sq.m. Ages 50-59 = 93 mL/min/1.73 sq.m. Ages 60-69 = 85 mL/min/1.73 sq.m. Ages 70+ = 75 mL/min/1.73 sq.m. Chronic Kidney Disease: Less than 60 mL/min/1.73 square meters End Stage Renal Disease: Less than 15 mL/min/1.73 square meters GFR/1.73 sq M.predicted among non-blacks MDRD (S/P/Bld) [Vol rate/Area] 70 ml/min/1.73sqm Invalid Interpretation Code AO Chemistry S Comment on above: Interpretive Data: GFR Population mean for , Non- Americans Ages 20-29 = 116 mL/min/1.73 sq.m. Ages 30-39 = 107 mL/min/1.73 sq.m. Ages 40-49 = 99 mL/min/1.73 sq.m. Ages 50-59 = 93 mL/min/1.73 sq.m. Ages 60-69 = 85 mL/min/1.73 sq.m. Ages 70+ = 75 mL/min/1.73 sq.m. Chronic Kidney Disease: Less than 60 mL/min/1.73 square meters End Stage Renal Disease: Less than 15 mL/min/1.73 square meters Glucose [Mass/Vol] 97 mg/dL Normal 70 - 105 mg/dL AO ADM SS Hematocrit (Bld) [Volume fraction] 39.7 % Normal 37.0 - 47.0 % AO Workflow SS Hemoglobin (Bld) [Mass/Vol] 13.2 G/dL Normal 12.0 - 16.0 G/dL AO Workflow SS Lymphocyte, Absolute 1.5 103/mcL Normal 0.8 - 3 .9 10^3/mcL AO Workflow SS Lymphocytes/100 WBC (Bld) 13.0 % Normal 10.0 - 50.0 % AO Workflow SS MCH (RBC) [Entitic mass] 29.7 pg Normal 27.0 - 31.2 pg AO Workflow SS MCHC 33.3 G/dL Normal 33.0 - 37.0 G/dL AO Workflow SS MCV (RBC) [Entitic vol] 89.2 fL Normal 80.0 - 94.0 fL AO Workflow SS Monocyte distribution width Auto (Bld) [Entitic vol] 18.55 1 Normal 0.00 - 20.00 AO Workflow SS Comment on above: Result Comment: For ED adult patients suspected of sepsis, MDW<=20.0 does not rule out sepsis or risk of sepsis Monocyte, Absolute 0.9 103/mcL Normal 0.2 - 1.0 10^3/mcL AO Workflow SS Monocytes/100 WBC (Bld) 7.9 % Normal 1.7 - 13.0 % AO Workflow SS Neutrophil, Absolute 9.0 103/mcL High 2.9 - 6 .2 10^3/mcL AO Workflow SS Neutrophils/100 WBC (Bld) 77.1 % Normal 37.0 - 80.0 % AO Workflow SS Platelet mean volume (Bld) [Entitic vol] 9.1 fL Normal 7.4 - 10.4 fL AO Workflow SS Platelets (Bld) [#/Vol] 296 103/mcL Normal 130 - 400 10^3/mcL AO Workflow SS Potassium [Moles/Vol] 4.0 mmol/L Normal 3.5 - 5.1 mmol/L AO ADM SS RBC (Bld) [#/Vol] 4.45 106/mcL Normal 4.20 - 5.4 0 10^6/mcL AO Workflow SS Sodium [Moles/Vol] 142 mmol/L Normal 136 - 145 mmol/L AO ADM SS Urea nitrogen [Mass/Vol] 16 mg/dL Normal 7 - 18 mg/dL AO ADM SS Urea nitrogen/Creatinine [Mass ratio] 18 ratio Normal 7 - 27 ratio AO ADM SS WBC (Bld) [#/Vol] 11.7 103/mcL High 4.6 - 10.8 10^3/mcL AO Workflow SS No Panel Informationon 04-08 Microscopic examination of blood, culture Culture has been received in lab and is no growth to date. Routine cultures are held for 5 days. [facility] UAon 04-08-2024 Color (U) Yellow Normal [facility] ([place]) Comment on above: Performed By: #### U A ####[place] [address] Glucose (U) [Mass/Vol] Negative Normal Negative [facility] ([place]) Comment on above: Performed By: #### U A ####[address] [place], [place] [address] Ketones Ql (U) Negative Normal Negative [facility] ([place]) Comment on above: Performed By: #### U A ####[address] [place] [address] UA Appear Clear Normal Clear [facility] ([place]) Comment on above: Performed By: #### U A ####[address] [place] [address] UA Blood Trace Abnormal Negative [facility] ([place]) Comment on above: Performed By: #### U A ####[address] [place] [address] UA Leuk Est Negative Normal Negative [facility] ([place]) Comment on above: Performed By: #### U A ####[address] [place] [address] UA Nitrite Negative Normal Negative [facility] ([place]) Comment on above: Performed By: #### U A ####[address] [place] [address] UA pH 5.5 Normal 5.0 - 8.0 [facility] ([place]) Comment on above: Performed By: #### U A ####[address] [place] [address] UA Protein Negative Normal Negative [facility] ([place]) Comment on above: Performed By: #### U A ####[address] [place] [address] UA Spec Grav 1.020 Normal 1.015-1.025 [facility] ([place]) Comment on above: Performed By: #### U A ####[address] [place] [address] UA Specimen Type Clean Catch Normal [facility] ([place]) Comment on above: Performed By: #### U A ####[address] [place] [address] UA Urobilinogen 0.2 E.U./dL Normal 0.2-1.0 [facility] ([place]) Comment on above: Performed By: #### U A ####[address] [place], [place] [address] Urobilinogen (U) [Mass/Vol] Negative Normal Negative [facility] ([place]) Comment on above: Performed By: #### U A ####[address] [place], [place] [address] Non-Livestock Sales Representative Cytology Reporton Non-Livestock Sales Representative Cytology Report . 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 See surgical specimen report [id number]. SPECIMEN: Pelvic Washing GROSS DESCRIPTION: # of Blocks: 1 # of Monolayers: 1 Volume (ml) 100 Color: fresh pink Electronically Signed by Pathology Report verified by [facility] Screened by: TREVA MALDONADO Electronically signed by ANU PAGE Sign-Out Date: 04/06/2024 09:20 Performing Lab: [facility], [address] [place] [address] Pathology Dept Disclaimer If ancillary studies were utilized, the following Laboratory Developed Test (LDT) disclaimer will apply: Under CLIA requirements, [facility] Pathology Laboratory is qualified to perform high complexity testing. For all ancillary stains, positive and negative controls stain appropriately. Performance characteristics of immunohistochemical and chromogenic in-situ hybridization tests have been determined by [facility]. These tests are used for clinical purposes, They should not be regarded as investigational or for research. Normal [facility]) ABO/Rh (Gel)on 04-03-2024 ABO/Rh Interp Positive Invalid Interpretation Code [facility] ([place]) Comment on above: Performed By: #### A BSGEL, ABOGEL #### [facility] [address] [place] [address] ABS (Gel)on 04-03-2024 ABSC Interp (Gel) Negative Normal [facility] ([place]) Comment on above: Performed By: #### A BSGEL, ABOGEL #### [facility] [address] [place] [address] LABORATORYOrdered By: Vivek Mari on 04-03-2024 ABO and Rh group Nom (Bld) Blood group O Rh(D) positive Invalid Interpretation Code AH BB Auto SS Blood group antibody screen Ql Negative ABSC (04/03/24 9:41 AM) Normal AH BB Auto SS LABORATORYOrdered By: Danika Blanco on 04-03-2024 Beta HCG ( test) Ql (U) Negative (04/03/24 9:41 AM) [facility] [place]Con 04-02-2024 LC Order Number [id number] Normal [facility] ([place]) Comment on above: Order Comment: Human Epididymis Protein 4 LC Code: 673256 Performed By: #### 9 [id number] ####[address] [place], [place] [address] LC Test Name Human Epididymis Protein Normal [facility] ([place]) Comment on above: Order Comment: Human Epididymis Protein 4 LC Code: 865108 Performed By: #### 9 [id number] ####[address] [place], [place] [address] XR CHEST 2 VIEWSon 4 XR CHEST 2 VIEWS ORIGINAL EXAMINATION: TWO XRAY VIEWS OF THE CHEST03/30/2024 8:16 am COMPARISON: None available at time of dictation. HISTORY: ORDERING SYSTEM PROVIDED HISTORY: Reason for Exam: Preoperative evaluation FINDINGS: Cardiomediastinal contours are within normal limits. No focal consolidation or pulmonary edema. Low lung volumes due to hypoventilatory changes. No pneumothorax or pleural effusion. No acute osseous abnormalities. Minimal spurring of the thoracic spine. IMPRESSION: Low lung volumes due to hypoventilatory changes. No acute processes. I have personally reviewed the images of this examination and agree with the resident's findings and interpretation. Interpreted by: Shaquille Cardona DO Preliminary Report By: Kelly Bashour Electronically signed By Shaquille Cardona DO Dictated Date: 03/31/2024 10:02:45 AM Prelim Date: 03/31/2024 10:45:34 AM Sign Date: 03/31/2024 10:45:34 AM Ordering Provider: JELANI FAULKNER Normal [facility] ([place]) ABO/Rh (Gel)on 03-30-2024 ABO/Rh Interp Positive Invalid Interpretation Code [facility] ([place]) Comment on above: Performed By: #### A BSGEL, ABOGEL #### [facility] [address] [place] [address] ABS (Gel)on 03-30-2024 ABSC Interp (Gel) Negative Normal [facility] ([place]) Comment on above: Performed By: #### A BSGEL, ABOGEL #### [facility] [address] [place] [address] LABORATORYOrdered By: Monty Garvin on 03-30-2024 ABO and Rh group Nom (Bld) Blood group O Rh(D) positive Invalid Interpretation Code AH BB Auto SS Blood group antibody screen Ql Negative ABSC (03/30/24 7:39 AM) Normal AH BB Auto SS Misc LCon 03-29-2024 Misc Test Result COMMENT Normal [facility] ([place]) Comment on above: Order Comment: Human Epididymis Protein 4 LC Code: 662508 Result Comment: Test Ordered: [id number] Human Epididymis Protein 4 HE4 82.5 [H ] pmol/L Reference Range: 0.0-63.6 [facility] Electrochemiluminescence Immunoassay (ECLIA) Values obtained with different assay methods or kits cannot be used interchangeably. Results cannot be interpreted as absolute evidence of the presence or absence of malignant disease. Performed At: [facility] [address] [place], [place] [id number] Christine Haddad PhD Ph:[phone] Performed At: [facility] [id number] Ilan Zelaya MD Ph:[phone] Performed By: #### 9 [id number] ####[address] [place], [place] [address] .Auto Diffon 03-25-2024 Basophil, Absolute 0.0 10 3/mcL Normal 0.0-0.2 [facility] ([place]) Comment on above: Performed By: #### G FR, CBC, ANEU, CMP, ADIFF ####[place] [address]#### CA125, CA19, FSH, CEA ####[address] [address] Basophils/100 WBC (Bld) 0.2 % Normal 0.0-2.5 [facility] ([place]) Comment on above: Performed By: #### G FR, CBC, ANEU, CMP, ADIFF ####[place] [address]#### CA125, CA19, FSH, CEA ####[address] [address] Eosinophil, Absolute 0.1 10 3/mcL Normal 0.0-0.4 [facility] ([place]) Comment on above: Performed By: #### G FR, CBC, ANEU, CMP, ADIFF ####[place] [address]#### CA125, CA19, FSH, CEA ####[address] [address] Eosinophils/100 WBC (Bld) 1.4 % Normal 0.0-7.0 [facility] ([place]) Comment on above: Performed By: #### G FR, CBC, ANEU, CMP, ADIFF ####[place] [address]#### CA125, CA19, FSH, CEA ####[address] [address] Lymphocyte, Absolute 1.9 10 3/mcL Normal 0.8-3.9 [facility] ([place]) Comment on above: Performed By: #### G FR, CBC, ANEU, CMP, ADIFF ####[place] [address]#### CA125, CA19, FSH, CEA ####[address] [address] Lymphocytes/100 WBC (Bld) 18.3 % Normal 10.0-50.0 [facility] ([place]) Comment on above: Performed By: #### G FR, CBC, ANEU, CMP, ADIFF ####[address] [place], [place] [address]#### CA125, CA19, FSH, CEA ####[facility] [place] [address] Monocyte, Absolute 0.6 10 3/mcL Normal 0.2-1.0 [facility] ([place]) Comment on above: Performed By: #### G FR, CBC, ANEU, CMP, ADIFF ####[address] [place] [address]#### CA125, CA19, FSH, CEA ####[place] [address] [place] [address] Monocytes/100 WBC (Bld) 5.7 % Normal 1.7-13.0 [facility] ([place]) Comment on above: Performed By: #### G FR, CBC, ANEU, CMP, ADIFF ####[address] [place] [address]#### CA125, CA19, FSH, CEA ####[place] [address] [place] [address] Neutrophils/100 WBC (Bld) 74.4 % Normal 37.0-80.0 [facility] ([place]) Comment on above: Performed By: #### G FR, CBC, ANEU, CMP, ADIFF ####[address] [place] [address]#### CA125, CA19, FSH, CEA ####[facility] [place] [address] .GFRon 03-25-2024 GFR 101 ml/min/1.73sqm Normal [facility] ([place]) Comment on above: Result Comment: GFR Population mean for , Non- Americans Ages 20-29 = 116 mL/min/1.73 sq.m. Ages 30-39 = 107 mL/min/1.73 sq.m. Ages 40-49 = 99 mL/min/1.73 sq.m. Ages 50-59 = 93 mL/min/1.73 sq.m. Ages 60-69 = 85 mL/min/1.73 sq.m. Ages 70+ = 75 mL/min/1.73 sq.m. Chronic Kidney Disease: Less than 60 mL/min/1.73 square meters End Stage Renal Disease: Less than 15 mL/min/1.73 square meters Performed By: #### G FR, CBC, ANEU, CMP, ADIFF ####[id number] [place] [address]#### CA125, CA19, FSH, CEA ####[place] [id number] [place] [address] GFR Non- 83 ml/min/1.73sqm Normal [facility] ([place]) Comment on above: Result Comment: GFR Population mean for , Non- Americans Ages 20-29 = 116 mL/min/1.73 sq.m. Ages 30-39 = 107 mL/min/1.73 sq.m. Ages 40-49 = 99 mL/min/1.73 sq.m. Ages 50-59 = 93 mL/min/1.73 sq.m. Ages 60-69 = 85 mL/min/1.73 sq.m. Ages 70+ = 75 mL/min/1.73 sq.m. Chronic Kidney Disease: Less than 60 mL/min/1.73 square meters End Stage Renal Disease: Less than 15 mL/min/1.73 square meters Performed By: #### G FR, CBC, ANEU, CMP, ADIFF ####[facility] [place] [address]#### CA125, CA19, FSH, CEA ####[place] [id number] [place] [id number] .NEUABSon 03-25-2024 Neutrophil, Absolute 7.7 10 3/mcL High 2.9-6.2 [facility] ([place]) Comment on above: Performed By: #### G FR, CBC, ANEU, CMP, ADIFF ####[place] [id number] [place] [address]#### CA125, CA19, FSH, CEA ####[place] [address] [id number] 03-25-2024 CA 125 76.0 U/mL High 2.0-35.0 [facility] ([place]) Comment on above: Result Comment: Test ing performed on the [employer] IM analyzer using direct chemiluminesent technology. Patient results determined by assays using different manufacturers for methods may not be comparable. Performed By: #### G FR, CBC, ANEU, CMP, ADIFF ####[place] [address]#### CA125, CA19, FSH, CEA ####[place] [address] CA19on 03-25-2024 CA 19-9 23.2 U/mL Normal 0.0-35.0 [facility] ([place]) Comment on above: Result Comment: Test ing performed on the [employer] IM analyzer using direct chemiluminesent technology. Patient results determined by assays using different manufacturers for methods may not be comparable. Performed By: #### G FR, CBC, ANEU, CMP, ADIFF ####[place] [address]#### CA125, CA19, FSH, CEA ####[place] [address] CBCon 03-25-2024 Erythrocyte distribution width (RBC) [Ratio] 14.3 % Normal 11.5-14.5 [facility] ([place]) Comment on above: Performed By: #### G FR, CBC, ANEU, CMP, ADIFF ####[place] [address]#### CA125, CA19, FSH, CEA ####[place] [address] Hematocrit (Bld) [Volume fraction] 38.7 % Normal 37.0-47.0 [facility] ([place]) Comment on above: Performed By: #### G FR, CBC, ANEU, CMP, ADIFF ####[place] [address]#### CA125, CA19, FSH, CEA ####[place] [address] Hgb 13.0 G/dL Normal 12.0-16.0 [facility] ([place]) Comment on above: Performed By: #### G FR, CBC, ANEU, CMP, ADIFF ####[place] [address]#### CA125, CA19, FSH, CEA ####[place] [address] MCH (RBC) [Entitic mass] 30.0 pg Normal 27.0-31.2 [facility] ([place]) Comment on above: Performed By: #### G FR, CBC, ANEU, CMP, ADIFF ####[place] [address]#### CA125, CA19, FSH, CEA ####[place] [address] MCHC 33.7 G/dL Normal 33.0-37.0 [facility] ([place]) Comment on above: Performed By: #### G FR, CBC, ANEU, CMP, ADIFF ####[place] [address]#### CA125, CA19, FSH, CEA ####[place] [address] MCV (RBC) [Entitic vol] 89.0 fL Normal 80.0-94.0 [facility] ([place]) Comment on above: Performed By: #### G FR, CBC, ANEU, CMP, ADIFF ####[place] [address]#### CA125, CA19, FSH, CEA ####[place] [address] Platelet 236 10 3/mcL Normal 130-400 [facility] ([place]) Comment on above: Performed By: #### G FR, CBC, ANEU, CMP, ADIFF ####[place] [address]#### CA125, CA19, FSH, CEA ####[place] [address] Platelet mean volume (Bld) [Entitic vol] 9.8 fL Normal 7.4-10.4 [facility] ([place]) Comment on above: Performed By: #### G FR, CBC, ANEU, CMP, ADIFF ####[place] [address]#### CA125, CA19, FSH, CEA ####[place] [address] RBC 4.34 10 6/mcL Normal 4.20-5.40 [facility] ([place]) Comment on above: Performed By: #### G FR, CBC, ANEU, CMP, ADIFF ####[address] [address] [address]#### CA125, CA19, FSH, CEA ####[place] [address] WBC 10.3 10 3/mcL Normal 4.6-10.8 [facility] ([place]) Comment on above: Performed By: #### G FR, CBC, ANEU, CMP, ADIFF ####[place] [address]#### CA125, CA19, FSH, CEA ####[place] [address] CEAon 03-25-2024 CEA 0.5 ng/mL Normal 0.0-3.0 [facility] ([place]) Comment on above: Result Comment: CEA Reference Range for SMOKERS: 0.0 - 5.0 ng/mL. Testing performed on the [employer] IM analyzer using direct chemiluminesent technology. Patient results determined by assays using different manufacturers for methods may not be comparable. Performed By: #### G FR, CBC, ANEU, CMP, ADIFF ####[address] [place] [address]#### CA125, CA19, FSH, CEA ####[place] [address] CMPon 03-25-2024 Albumin Level 3.7 G/dL Normal 3.5-5.0 [facility] ([place]) Comment on above: Performed By: #### Sal FR, CBC, ANEU, CMP, ADIFF ####[place] [id number] [place] [address]#### CA125, CA19, FSH, CEA ####[address] [address] Albumin/Globulin [Mass ratio] 1.2 {ratio} Normal 1.1-2.5 [facility] ([place]) Comment on above: Performed By: #### G FR, CBC, ANEU, CMP, ADIFF ####[place] [address]#### CA125, CA19, FSH, CEA ####[address] [address] ALP [Catalytic activity/Vol] 78 U/L Normal 40-135 [facility] ([place]) Comment on above: Performed By: #### Sal FR, CBC, ANEU, CMP, ADIFF ####[place] [address]#### CA125, CA19, FSH, CEA ####[address] [address] ALT [Catalytic activity/Vol] 24 U/L Normal 14-59 [facility] ([place]) Comment on above: Performed By: #### G FR, CBC, ANEU, CMP, ADIFF ####[place] [address]#### CA125, CA19, FSH, CEA ####[address] [address] AST [Catalytic activity/Vol] 14 U/L Normal 10-40 [facility] ([place]) Comment on above: Performed By: #### G FR, CBC, ANEU, CMP, ADIFF ####[facility] [place] [address]#### CA125, CA19, FSH, CEA ####[address] [address] Bili Total 0.4 mg/dL Normal 0.2-1.0 [facility] ([place]) Comment on above: Result Comment: Use of this assay is not recommended for patients undergoing treatment with eltrombopag due to the potential for falsely elevated results. Performed By: #### G FR, CBC, ANEU, CMP, ADIFF ####Daryn [address] [place] [address]#### CA125, CA19, FSH, CEA ####[address] [address] BUN/Creatinine Ratio 29 ratio High 7-27 [facility] ([place]) Comment on above: Performed By: #### G FR, CBC, ANEU, CMP, ADIFF ####[place] [address]#### CA125, CA19, FSH, CEA ####[address] [address] Calcium [Mass/Vol] 9.3 mg/dL Normal 8.4-10.2 [facility] ([place]) Comment on above: Performed By: #### G FR, CBC, ANEU, CMP, ADIFF ####[place] [address]#### CA125, CA19, FSH, CEA ####[address] [address] Chloride [Moles/Vol] 103 mmol/L Normal 98-107 [facility] ([place]) Comment on above: Performed By: #### G FR, CBC, ANEU, CMP, ADIFF ####[place] [address]#### CA125, CA19, FSH, CEA ####[address] [address] CO2 [Moles/Vol] 28 mmol/L Normal 22-29 [facility] ([place]) Comment on above: Performed By: #### G FR, CBC, ANEU, CMP, ADIFF ####[place] [address]#### CA125, CA19, FSH, CEA ####[place] [address] Creatinine [Mass/Vol] 0.76 mg/dL Normal 0.55-1.02 [facility] ([place]) Comment on above: Performed By: #### G FR, CBC, ANEU, CMP, ADIFF ####[place] [id number] [place] [address]#### CA125, CA19, FSH, CEA ####[place] [address] Electrolyte Balance 10.0 mEq/L Normal 4.0-15.0 [facility] ([place]) Comment on above: Performed By: #### G FR, CBC, ANEU, CMP, ADIFF ####[place] [address]#### CA125, CA19, FSH, CEA ####[place] [address] Globulin 3.2 G/dL Normal [facility] ([place]) Comment on above: Performed By: #### G FR, CBC, ANEU, CMP, ADIFF ####[place] [address]#### CA125, CA19, FSH, CEA ####[place] [address] Glucose [Mass/Vol] 96 mg/dL Normal 70-105 [facility] ([place]) Comment on above: Performed By: #### G FR, CBC, ANEU, CMP, ADIFF ####[place] [address]#### CA125, CA19, FSH, CEA ####[place] [id number] [place] [address] Potassium [Moles/Vol] 4.1 mmol/L Normal 3.5-5.1 [facility] ([place]) Comment on above: Performed By: #### G FR, CBC, ANEU, CMP, ADIFF ####[place] [address] [place] [address]#### CA125, CA19, FSH, CEA ####[address] [address] Sodium [Moles/Vol] 141 mmol/L Normal 136-145 [facility] ([place]) Comment on above: Performed By: #### G FR, CBC, ANEU, CMP, ADIFF ####[place] [place] [address]#### CA125, CA19, FSH, CEA ####[place] [address] Total Protein 6.9 G/dL Normal 6.4-8.2 [facility] ([place]) Comment on above: Performed By: #### G FR, CBC, ANEU, CMP, ADIFF ####[place] [place] [address]#### CA125, CA19, FSH, CEA ####[place] [address] Urea nitrogen [Mass/Vol] 22 mg/dL High 7-18 [facility] ([place]) Comment on above: Performed By: #### G FR, CBC, ANEU, CMP, ADIFF ####[place] [place] [address]#### CA125, CA19, FSH, CEA ####[place] [address] FSHon 03-25-2024 FSH 3.2 mIU/mL Normal [facility] ([place]) Comment on above: Result Comment: Adul t Female FSH Reference Ranges (08/09/99): Follicular phase 2.5 - 10.2 mIU/mL Midcycle phase 3.4 - 33.4 mIU/mL Luteal phase 1.5 - 9.1 mIU/mL Post menopausal 23.0 -116.3 mIU/mL Adult Male: 1.4 - 18.1 mIU/mL Performed By: #### G FR, CBC, ANEU, CMP, ADIFF ####[address] [place] [place] [address]#### CA125, CA19, FSH, CEA ####[place] [address] LABORATORYOrdered By: SYSTEM SYSTEM on 03-25-2024 Albumin BCP dye [Mass/Vol] 3.7 G/dL Normal 3.5 - 5.0 G/dL AO ADM SS Albumin/Globulin [Mass ratio] 1.2 {ratio} Normal 1.1 - 2.5 ratio AO ADM SS ALP [Catalytic activity/Vol] 78 U/L Normal 40 - 135 U/L AO ADM SS ALT With P-5'-P [Catalytic activity/Vol] 24 U/L Normal 14 - 59 U/L AO ADM SS AST With P-5'-P [Catalytic activity/Vol] 14 U/L Normal 10 - 40 U/L AO ADM SS Basophil, Absolute 0.0 103/mcL Normal 0.0 - 0.2 10^3/mcL AO Workflow SS Basophils/100 WBC (Bld) 0.2 % Normal 0.0 - 2.5 % AO Workflow SS Bilirubin [Mass/Vol] 0.4 mg/dL Normal 0.2 - 1 .0 mg/dL AO ADM SS Comment on above: Interpretive Data: U se of this assay is not recommended for patients undergoing treatment with eltrombopag due to the potential for falsely elevated results. Calcium [Mass/Vol] 9.3 mg/dL Normal 8.4 - 10. 2 mg/dL AO ADM SS Cancer Ag 125 Qn 76.0 [arb'U]/mL High 2.0 - 35 .0 U/mL ADM SS Comment on above: Interpretive Data: T esting performed on the [employer] IM analyzer using direct chemiluminesent technology. Patient results determined by assays using different manufacturers for methods may not be comparable. Cancer Ag 19-9 Qn 23.2 [arb'U]/mL Normal 0.0 - 3 5.0 U/mL ADM SS Comment on above: Interpretive Data: T esting performed on the [employer] IM analyzer using direct chemiluminesent technology. Patient results determined by assays using different manufacturers for methods may not be comparable. Carcinoembryonic Ag [Mass/Vol] 0.5 ng/mL Normal 0.0 - 3.0 ng/mL ADM SS Comment on above: Interpretive Data: C EA Reference Range for SMOKERS: 0.0 - 5.0 ng/mL. Testing performed on the [employer] IM analyzer using direct chemiluminesent technology. Patient results determined by assays using different manufacturers for methods may not be comparable. Chloride [Moles/Vol] 103 mmol/L Normal 98 - 10 7 mmol/L AO ADM SS CO2 [Moles/Vol] 28 mmol/L Normal 22 - 29 mmol/L AO ADM SS Creatinine [Mass/Vol] 0.76 mg/dL Normal 0.55 - 1.02 mg/dL AO ADM SS Electrolyte Balance 10.0 mEq/L Normal 4.0 - 15 .0 mEq/L AO ADM SS Eosinophil, Absolute 0.1 103/mcL Normal 0.0 - 0 .4 10^3/mcL AO Workflow SS Eosinophils/100 WBC (Bld) 1.4 % Normal 0.0 - 7.0 % AO Workflow SS Erythrocyte distribution width (RBC) [Ratio] 14.3 % Normal 11.5 - 14.5 % AO Workflow SS Follitropin Qn 3.2 m[IU]/mL Invalid Interpretation Code AH ADM SS Comment on above: Interpretive Data: A dult Female FSH Reference Ranges (08/09/99): Follicular phase 2.5 - 10.2 mIU/mL Midcycle phase 3.4 - 33.4 mIU/mL Luteal phase 1.5 - 9.1 mIU/mL Post menopausal 23.0 -116.3 mIU/mL Adult Male: 1.4 - 18.1 mIU/mL GFR/1.73 sq M.predicted among blacks MDRD (S/P/Bld) [Vol rate/Area] 101 ml/min/1.73sqm Invalid Interpretation Code AO Chemistry S Comment on above: Interpretive Data: GFR Population mean for , Non- Americans Ages 20-29 = 116 mL/min/1.73 sq.m. Ages 30-39 = 107 mL/min/1.73 sq.m. Ages 40-49 = 99 mL/min/1.73 sq.m. Ages 50-59 = 93 mL/min/1.73 sq.m. Ages 60-69 = 85 mL/min/1.73 sq.m. Ages 70+ = 75 mL/min/1.73 sq.m. Chronic Kidney Disease: Less than 60 mL/min/1.73 square meters End Stage Renal Disease: Less than 15 mL/min/1.73 square meters GFR/1.73 sq M.predicted among non-blacks MDRD (S/P/Bld) [Vol rate/Area] 83 ml/min/1.73sqm Invalid Interpretation Code AO Chemistry S Comment on above: Interpretive Data: GFR Population mean for , Non- Americans Ages 20-29 = 116 mL/min/1.73 sq.m. Ages 30-39 = 107 mL/min/1.73 sq.m. Ages 40-49 = 99 mL/min/1.73 sq.m. Ages 50-59 = 93 mL/min/1.73 sq.m. Ages 60-69 = 85 mL/min/1.73 sq.m. Ages 70+ = 75 mL/min/1.73 sq.m. Chronic Kidney Disease: Less than 60 mL/min/1.73 square meters End Stage Renal Disease: Less than 15 mL/min/1.73 square meters Globulin 3.2 G/dL Invalid Interpretation Code AO ADM SS Glucose [Mass/Vol] 96 mg/dL Normal 70 - 105 mg/dL AO ADM SS Hematocrit (Bld) [Volume fraction] 38.7 % Normal 37.0 - 47.0 % AO Workflow SS Hemoglobin (Bld) [Mass/Vol] 13.0 G/dL Normal 12.0 - 16.0 G/dL AO Workflow SS Lymphocyte, Absolute 1.9 103/mcL Normal 0.8 - 3 .9 10^3/mcL AO Workflow SS Lymphocytes/100 WBC (Bld) 18.3 % Normal 10.0 - 50.0 % AO Workflow SS MCH (RBC) [Entitic mass] 30.0 pg Normal 27.0 - 31.2 pg AO Workflow SS MCHC 33.7 G/dL Normal 33.0 - 37.0 G/dL AO Workflow SS MCV (RBC) [Entitic vol] 89.0 fL Normal 80.0 - 94.0 fL AO Workflow SS Monocyte, Absolute 0.6 103/mcL Normal 0.2 - 1.0 10^3/mcL AO Workflow SS Monocytes/100 WBC (Bld) 5.7 % Normal 1.7 - 13.0 % AO Workflow SS Neutrophil, Absolute 7.7 103/mcL High 2.9 - 6 .2 10^3/mcL AO Workflow SS Neutrophils/100 WBC (Bld) 74.4 % Normal 37.0 - 80.0 % AO Workflow SS Platelet mean volume (Bld) [Entitic vol] 9.8 fL Normal 7.4 - 10.4 fL AO Workflow SS Platelets (Bld) [#/Vol] 236 103/mcL Normal 130 - 400 10^3/mcL AO Workflow SS Potassium [Moles/Vol] 4.1 mmol/L Normal 3.5 - 5.1 mmol/L AO ADM SS Protein [Mass/Vol] 6.9 G/dL Normal 6.4 - 8.2 G/dL AO ADM SS RBC (Bld) [#/Vol] 4.34 106/mcL Normal 4.20 - 5.4 0 10^6/mcL AO Workflow SS Sodium [Moles/Vol] 141 mmol/L Normal 136 - 145 mmol/L AO ADM SS Urea nitrogen [Mass/Vol] 22 mg/dL High 7 - 18 mg/dL AO ADM SS Urea nitrogen/Creatinine [Mass ratio] 29 ratio High 7 - 27 ratio AO ADM SS WBC (Bld) [#/Vol] 10.3 103/mcL Normal 4.6 - 10.8 10^3/mcL AO Workflow SS US PELVIS NON-OB W/TRANSVAGI NALon 03-24-2024 US PELVIS NON-OB W/TRANSVAGINAL ORIGINAL EXAMINATION: TRANSVAGINAL PELVIC ULTRASOUND 03/23/2024 TECHNIQUE: Transvaginal pelvic ultrasound was performed. COMPARISON: None HISTORY: ORDERING SYSTEM PROVIDED HISTORY: Reason for Exam: pelvic pain, history of Asherman's All images recorded and archived. FINDINGS: Measurements: Uterus: 9.1 x 5.1 x 5.0 Endometrial stripe: 4.3 mm Right Ovary:9.8 x 6.8 x 6.9 cm Left Ovary: 3.3 x 4.2 x 3.9 cm Ultrasound Findings: Uterus: Uterus demonstrates normal myometrial echotexture. Endometrial stripe: Endometrial stripe is within normal limits. Right Ovary: Right ovary associated with 2 sizable complicated cysts with septations and solid components which measure 4.6 x 6.3 x 4.3 cm, and 5.8 x 6.2 x 6.0 cm. Appearance suggests presence of cystadenocarcinoma or dermoid lesions. Left Ovary: Contains a 2.4 cm x 4.2 cm complicated cyst. Free Fluid: No evidence of free fluid. IMPRESSION: 1. Bilateral complicated ovarian cysts. Appearance suggests presence of cystadenocarcinoma or dermoid lesions. 2. MRI pelvis with and without contrast may be of further diagnostic value. 3. Gynecologic consult can be considered as well. Interpreted by: Shaquille Cardona DO Preliminary Report By: Shaquille Cardona DO Electronically signed By Shaquille Cardona DO Dictated Date: 03/24/2024 9:13:54 AM Prelim Date: 03/24/2024 9:38:52 AM Sign Date: 03/24/2024 9:38:52 AM Ordering Provider: CAROLINE Easley [facility] ([place]) Livestock Sales Representative Cytology Reporton 2023 Livestock Sales Representative Cytology Report . Pathology Reports Accession: Collected Date/Time: Received Date/Time: Pathologist: [id number] 03/10/2024 09:26 EDT 03/10/2024 18:00 EDT Livestock Sales Representative Cytology Report SPECIMEN: Specimen Description: Liquid Prep w/ HPV Specimen: Cervical Screening or Diagnostic: Screening RELEVANT HISTORY: LMP: amenorrhea w ashermanns Other clinical information: leep 2010 SPECIMEN ADEQUACY: SATISFACTORY FOR EVALUATION Endocervical/Transforma tional zone component absent/insufficient INTERPRETATION/RESULTS: NEGATIVE FOR INTRAEPITHELIAL LESION OR MALIGNANCY HIGH RISK HPV TESTING: Event Code Result HPV Interp See Interp HPVN HPV Interp Text: High Risk HPV Typing: NEGATIVE HPV types 16, 18, 31, 33, 35, 39, 45, 51, 52, 56, 58, 59, 66 and 68 DNA were undetectable or below the pre-set threshold. The linda High-Risk HPV DNA Test is not intended for use as a screening device for Pap normal women under age 30 and is not intended to substitute for regular Pap screening. The linda High-Risk HPV DNA Test is designed to augment existing methods for the detection of cervical disease and should be used in conjunction with clinical information derived from other diagnostic and screening tests, physical examinations and full medical history in accordance with appropriate patient management procedures. NOTE: A negative result does not preclude the presence of HPV infection because results depend on adequate specimen collection, absence of inhibitors and sufficient DNA to be detected. As of: 03/13/24 13:34 EDT COMMENT: This Pap Test was successfully processed and evaluated with the assistance of the [employer] ThinPrep Test Imaging System. Pathology Reports Accession: Collected Date/Time: Received Date/Time: Pathologist: [id number] 03/10/2024 09:26 EDT 03/10/2024 18:00 EDT Electronically Signed by Pathology report verified by [facility] Screened by: KK Electronically signed by Norma CARLISLE (ASCP) Sign-Out Date: 03/13/2024 13:34 Performing Lab: [facility], [address] [place] [address] Pathology Dept Disclaimer The Pap test is a screening test for cervical cancer. As evidenced by published data, it is subject to both inherent false negative and false positive results. Your patient's results should be interpreted in context with pertinent clinical history including gynecological examination. Normal [facility] ([place]) HPVon 03-13-2024 HPV Interp Normal See Interp HPVN [facility] ([place]) Comment on above: Order Comment: Order placed by AP_HPV_ORDER rule from [id number] Result Comment: High Risk HPV Typing: NEGATIVE HPV types 16, 18, 31, 33, 35, 39, 45, 51, 52, 56, 58, 59, 66 and 68 DNA were undetectable or below the pre-set threshold. The linda High-Risk HPV DNA Test is not intended for use as a screening device for Pap normal women under age 30 and is not intended to substitute for regular Pap screening. The linda High-Risk HPV DNA Test is designed to augment existing methods for the detection of cervical disease and should be used in conjunction with clinical information derived from other diagnostic and screening tests, physical examinations and full medical history in accordance with appropriate patient management procedures. NOTE: A negative result does not preclude the presence of HPV infection because results depend on adequate specimen collection, absence of inhibitors and sufficient DNA to be detected. See Interp HPVN Performed By: #### U A #### [place] [address] HPV Source Cervix Normal [facility] ([place]) Comment on above: Order Comment: Order placed by AP_HPV_ORDER rule from [id number] Performed By: #### U A #### [place] [address] LABORATORYOrdered By: Italo Benoit on 03-10-2024 HPV Interp High Risk HPV Typing : NEGATIVEHPV types 16, 18, 31, 33, 35, 39, 45, 51, 52, 56, 58, 59, 66 and 68 DNA wereundetectable or below the pre-set threshold.The linda High-Risk HPV DNA Test is not intended for use as a screening device forPap normal women under age 30 and is not intended to substitute for regular Papscreening.The linda High-Risk HPV DNA Test is designed to augment existing methods for thedetection of cervical disease and should be used in conjunction with clinicalinformation derived from other diagnostic and screening tests, physical examinationsand full medical history in accordance with appropriate patient managementprocedures.NO TE: A negative result does not preclude the presence of HPV infection because resultsdepend on adequate specimen collection, absence of inhibitors and sufficientDNA to be detected. Normal See Interp HPVN Auto Viro/Sero SS Specimen source Nom (Unsp spec) Cervix (03/10/24 9:26 AM) Normal Auto Viro/Sero SS HCGQon 07-29-2023 hCG, quantitative <1.0 Normal [facility] ([place]) Comment on above: Result Comment: HCG Levels with Gestation age: 0.2- 1 week. . . . . . . . . . . . . . . 5 - 50 mIU/mL 1-2 weeks . . . . . . . . . . . . . . . 50 - 500 mIU/mL 2-3 weeks . . . . . . . . . . . . . . . 100 - 5,000 mIU/ml 3-4 weeks . . . . . . . . . . . . . . . 500 - 10,000 mIU/mL 4-5 weeks . . . . . . . . . . . . . . . 1,000 - 5,000 mIU/mL 5-6 weeks . . . . . . . . . . . . . . . 10,000 - 100,000 mIU/mL 6-8 weeks . . . . . . . . . . . . . . . 15,000 - 200,000 mIU/mL 2-3 months . . . . . . . . . . . . . . . 10,000 - 100,000 mIU/mL Performed By: #### H [facility] ####[place] [address] LABORATORYOrdered By: SYSTEM SYSTEM on 07-29-2023 HCG Qn mIU/mL Invalid Interpretation Code AO ADM SS Comment on above: Interpretive Data: H CG Levels with Gestation age: 0.2- 1 week. . . . . . . . . . . . . . . 5 - 50 mIU/mL 1-2 weeks . . . . . . . . . . . . . . . 50 - 500 mIU/mL 2-3 weeks . . . . . . . . . . . . . . . 100 - 5,000 mIU/ml 3-4 weeks . . . . . . . . . . . . . . . 500 - 10,000 mIU/mL 4-5 weeks . . . . . . . . . . . . . . . 1,000 - 5,000 mIU/mL 5-6 weeks . . . . . . . . . . . . . . . 10,000 - 100,000 mIU/mL 6-8 weeks . . . . . . . . . . . . . . . 15,000 - 200,000 mIU/mL 2-3 months . . . . . . . . . . . . . . . 10,000 - 100,000 mIU/mL LABORATORYOrdered By: Diya Stevens on 01-06-2023 S. pyogenes DNA YESSICA+probe Ql (Throat) Negative (01/06/23 3:33 AM) Invalid Interpretation Code Negative AO Auto Urine SS S. pyogenes DNA YESSICA+probe Ql (Throat) Negative for Streptococcus pyogenes by PCR. Negative test results do not rule out other possible infections besides those caused by Group A Streptococcus. False Negatives may be obtained in the presence of NYQUIL (0.5% V/V)The Quinn Group A Strep Assay is a real-time polymerase chain reaction (PCR) based qualitative in vitro diagnostic test for the direct detection of Streptococcus pyogenes (Group A Beta hemolytic Streptococcus) in throat swab specimens from patients with signs and symptoms of pharyngitis.The Quinn Group A Strep Assay can be used as an aid in the diagnosis of Group A Streptococcal pharyngitis. The assay is not intended to monitor treatment for Group A Streptococcus infections. Invalid Interpretation Code AO Auto Urine SS Vital Signs Date Time Vital Sign Value Performing Clinician Facility 05-25-2025 11:20-0400 Body height 167.64 cm Adan Garcia PEN TESTER-C Work Phone: [facility] 05-25-2025 11:20-0400 Body mass index (BMI) [Ratio] 47.2 kg/m2 Adan Garcia PEN TESTER-C Work Phone: [facility] 05-25-2025 11:20-0400 Body temperature 98.6 [degF] Adan Garcia PEN TESTER-C Work Phone: [facility] 05-25-2025 11:20-0400 Body weight 132.61 kg Adan Garcia PEN TESTER-C Work Phone: [facility] 05-25-2025 11:20-0400 Diastolic blood pressure 85 mm[Hg] Adan Garcia PEN TESTER-C Work Phone: [facility] 05-25-2025 11:20-0400 Heart rate 83 /min Adan Garcia PEN TESTER-C Work Phone: [facility] 05-25-2025 11:20-0400 Respiratory rate 16 /min Adan Garcia PEN TESTER-C Work Phone: [facility] 05-25-2025 11:20-0400 SaO2% (BldA) [Mass fraction] 96 % Adan Garcia PEN TESTER-C Work Phone: [facility] 05-25-2025 11:20-0400 Systolic blood pressure 118 mm[Hg] Adan Garcia PEN TESTER-C Work Phone: [facility] 05-19-2025 13:18-0400 Body height 167.64 cm Adan Garcia PEN TESTER-C Work Phone: [facility] 05-19-2025 13:18-0400 Body mass index (BMI) [Ratio] 46.6 kg/m2 Adan Garcia PEN TESTER-C Work Phone: [facility] 05-19-2025 13:18-0400 Body temperature 98.5 [degF] Adan Garcia PEN TESTER-C Work Phone: [facility] 05-19-2025 13:18-0400 Body weight 131.08 kg Adan Garcia PEN TESTER-C Work Phone: [facility] 05-19-2025 13:18-0400 Diastolic blood pressure 77 mm[Hg] Adan Garcia PEN TESTER-C Work Phone: [facility] 05-19-2025 13:18-0400 Heart rate 94 /min Adan Garcia PEN TESTER-C Work Phone: [facility] 05-19-2025 13:18-0400 Respiratory rate 18 /min Adan Garcia PEN TESTER-C Work Phone: [facility] 05-19-2025 13:18-0400 SaO2% (BldA) [Mass fraction] 96 % Adan Garcia PEN TESTER-C Work Phone: [facility] 05-19-2025 13:18-0400 Systolic blood pressure 110 mm[Hg] Adan Garcia PEN TESTER-C Work Phone: [facility] 04-26-2025 14:08-0400 Body height 167.64 cm Adan Garcia PEN TESTER-C Work Phone: [facility] 04-26-2025 14:08-0400 Body mass index (BMI) [Ratio] 43.2 kg/m2 Adan Garcia PEN TESTER-C Work Phone: [facility] 04-26-2025 14:08-0400 Body weight 121.56 kg Adan Garcia PEN TESTER-C Work Phone: [facility] 04-14-2025 12:15-0400 Body temperature 97 [degF] Adan Garcia PEN TESTER-C Work Phone: [facility] 04-14-2025 12:15-0400 Diastolic blood pressure 78 mm[Hg] Adan Garcia PEN TESTER-C Work Phone: [facility] 04-14-2025 12:15-0400 Heart rate 81 /min Adan Garcia PEN TESTER-C Work Phone: [facility] 04-14-2025 12:15-0400 Respiratory rate 16 /min Adan Garcia PEN TESTER-C Work Phone: [facility] 04-14-2025 12:15-0400 SaO2% (BldA) [Mass fraction] 95 % Adan Garcia PEN TESTER-C Work Phone: [facility] 04-14-2025 12:15-0400 Systolic blood pressure 147 mm[Hg] Adan Garcia PEN TESTER-C Work Phone: [facility] 04-14-2025 12:00-0400 Inhaled oxygen flow rate 2 L/min Adan Garcia PEN TESTER-C Work Phone: [facility] 04-14-2025 09:38-0400 Body height 167.64 cm Adan Garcia PEN TESTER-C Work Phone: [facility] 04-14-2025 09:38-0400 Body mass index (BMI) [Ratio] 47 kg/m2 Adan Garcia PEN TESTER-C Work Phone: [facility] 04-14-2025 09:38-0400 Body weight 131.99 kg Adan Garcia PEN TESTER-C Work Phone: [facility] 02-16-2025 16:05-0400 Body height 167.64 cm Adan Garcia PEN TESTER-C Work Phone: [facility] 02-16-2025 16:05-0400 Body mass index (BMI) [Ratio] 45.1 kg/m2 Adan Garcia PEN TESTER-C Work Phone: [facility] 02-16-2025 16:05-0400 Body temperature 97.8 [degF] Adan Garcia PEN TESTER-C Work Phone: [facility] 02-16-2025 16:05-0400 Body weight 126.66 kg Adan Garcia PEN TESTER-C Work Phone: [facility] 02-16-2025 16:05-0400 Diastolic blood pressure 79 mm[Hg] Adan Garcia PEN TESTER-C Work Phone: [facility] 02-16-2025 16:05-0400 Heart rate 82 /min Adan Garcia PEN TESTER-C Work Phone: [facility] 02-16-2025 16:05-0400 Respiratory rate 18 /min Adan Garcia PEN TESTER-C Work Phone: [facility] 02-16-2025 16:05-0400 SaO2% (BldA) [Mass fraction] 93 % Adan Garcia PEN TESTER-C Work Phone: [facility] 02-16-2025 16:05-0400 Systolic blood pressure 114 mm[Hg] Adan Garcia PEN TESTER-C Work Phone: [facility] 01-18-2025 08:23-0400 Body mass index (BMI) [Ratio] 40.3 kg/m2 Adan Garcia PEN TESTER-C Work Phone: [facility] 01-18-2025 08:23-0400 Body weight 113.39 kg Adan Garcia PEN TESTER-C Work Phone: [facility] 12-09-2024 13:38-0400 Body height 167.64 cm Adan Garcia PEN TESTER-C Work Phone: [facility] 12-09-2024 13:38-0400 Body mass index (BMI) [Ratio] 43.9 kg/m2 Adan Garcia PEN TESTER-C Work Phone: [facility] 12-09-2024 13:38-0400 Body temperature 97.8 [degF] Adan Garcia PEN TESTER-C Work Phone: [facility] 12-09-2024 13:38-0400 Body weight 123.6 kg Adan Garcia PEN TESTER-C Work Phone: [facility] 12-09-2024 13:38-0400 Diastolic blood pressure 85 mm[Hg] Adan Garcia PEN TESTER-C Work Phone: [facility] 12-09-2024 13:38-0400 Heart rate 88 /min Adan Garcia PEN TESTER-C Work Phone: [facility] 12-09-2024 13:38-0400 Respiratory rate 16 /min Adan Garcia PEN TESTER-C Work Phone: [facility] 12-09-2024 13:38-0400 SaO2% (BldA) [Mass fraction] 97 % Adan Garcia PEN TESTER-C Work Phone: [facility] 12-09-2024 13:38-0400 Systolic blood pressure 122 mm[Hg] Adan Garcia PEN TESTER-C Work Phone: [facility] 10-19-2024 13:04-0500 Body mass index (BMI) [Ratio] 43.9 kg/m2 Adan Garcia PEN TESTER-C Work Phone: [facility] 10-19-2024 13:04-0500 Body weight 123.37 kg Adan Garcia PEN TESTER-C Work Phone: [facility] 2024 14:43-0500 Body mass index (BMI) [Ratio] 43.4 kg/m2 Adan Garcia PEN TESTER-C Work Phone: [facility] 2024 14:43-0500 Body temperature 98.5 [degF] Adan Garcia PEN TESTER-C Work Phone: [facility] 2024 14:43-0500 Body weight 122.07 kg Adan Garcia PEN TESTER-C Work Phone: [facility] 2024 14:43-0500 Diastolic blood pressure 82 mm[Hg] Adan Garcia PEN TESTER-C Work Phone: [facility] 2024 14:43-0500 Heart rate 93 /min Adan Garcia PEN TESTER-C Work Phone: [facility] 2024 14:43-0500 Respiratory rate 18 /min Adan Garcia PEN TESTER-C Work Phone: [facility] 2024 14:43-0500 SaO2% (BldA) [Mass fraction] 96 % Adan Garcia PEN TESTER-C Work Phone: [facility] 2024 14:43-0500 Systolic blood pressure 118 mm[Hg] Adan Garcia PEN TESTER-C Work Phone: [facility] 09-23-2024 08:40-0500 Diastolic blood pressure 90 mm[Hg] Adan Garcia PEN TESTER-C Work Phone: [facility] 09-23-2024 08:40-0500 Heart rate 95 /min Adan Garcia PEN TESTER-C Work Phone: [facility] 09-23-2024 08:40-0500 Respiratory rate 18 /min Adan Garcia PEN TESTER-C Work Phone: [facility] 09-23-2024 08:40-0500 Systolic blood pressure 146 mm[Hg] Adan Garcia PEN TESTER-C Work Phone: [facility] 09-02-2024 09:41-0500 Body mass index (BMI) [Ratio] 43.9 kg/m2 Adan Garcia PEN TESTER-C Work Phone: [facility] 09-02-2024 09:41-0500 Body temperature 97 [degF] Adan Garcia PEN TESTER-C Work Phone: [facility] 09-02-2024 09:41-0500 Body weight 123.6 kg Adan Garcia PEN TESTER-C Work Phone: [facility] 09-02-2024 09:41-0500 Diastolic blood pressure 84 mm[Hg] Adan Garcia PEN TESTER-C Work Phone: [facility] 09-02-2024 09:41-0500 Heart rate 106 /min Adan Garcia PEN TESTER-C Work Phone: [facility] 09-02-2024 09:41-0500 Respiratory rate 16 /min Adan Garcia PEN TESTER-C Work Phone: [facility] 09-02-2024 09:41-0500 SaO2% (BldA) [Mass fraction] 96 % Adan Garcia PEN TESTER-C Work Phone: [facility] 09-02-2024 09:41-0500 Systolic blood pressure 118 mm[Hg] Adan Garcia PEN TESTER-C Work Phone: [facility] 08-26-2024 14:00-0500 Diastolic blood pressure 83 mm[Hg] Adan Garcia PEN TESTER-C Work Phone: [facility] 08-26-2024 14:00-0500 Heart rate 97 /min Adan Garcia PEN TESTER-C Work Phone: [facility] 08-26-2024 14:00-0500 Respiratory rate 18 /min Adan Garcia PEN TESTER-C Work Phone: [facility] 08-26-2024 14:00-0500 Systolic blood pressure 122 mm[Hg] Adan Garcia PEN TESTER-C Work Phone: [facility] 08-25-2024 14:53-0500 Body mass index (BMI) [Ratio] 44.4 kg/m2 Adan Garcia PEN TESTER-C Work Phone: [facility] 08-25-2024 14:53-0500 Body temperature 97.4 [degF] Adan Garcia PEN TESTER-C Work Phone: [facility] 08-25-2024 14:53-0500 Body weight 124.73 kg Adan Garcia PEN TESTER-C Work Phone: [facility] 08-25-2024 14:53-0500 Diastolic blood pressure 81 mm[Hg] Adan Garcia PEN TESTER-C Work Phone: [facility] 08-25-2024 14:53-0500 Heart rate 107 /min Adan Radha PEN TESTER-C Work Phone: [facility] 08-25-2024 14:53-0500 Respiratory rate 16 /min Adan Radha PEN TESTER-C Work Phone: [facility] 08-25-2024 14:53-0500 SaO2% (BldA) [Mass fraction] 97 % Adan Radha PEN TESTER-C Work Phone: [facility] 08-25-2024 14:53-0500 Systolic blood pressure 114 mm[Hg] Adan Radha PEN TESTER-C Work Phone: [facility] 08-12-2024 15:46-0500 Body temperature 96 [degF] Adan Radha PEN TESTER-C Work Phone: [facility] 08-12-2024 15:46-0500 Diastolic blood pressure 68 mm[Hg] Adan Radha PEN TESTER-C Work Phone: [facility] 08-12-2024 15:46-0500 Heart rate 84 /min Adan Radha PEN TESTER-C Work Phone: [facility] 08-12-2024 15:46-0500 Respiratory rate 16 /min Adan Radha PEN TESTER-C Work Phone: [facility] 08-12-2024 15:46-0500 Systolic blood pressure 133 mm[Hg] Adan Radha PEN TESTER-C Work Phone: [facility] 08-06-2024 15:13-0500 Blood Pressure Cuff Size DR DOMITILA CHAKRABORTY MD [facility] 08-06-2024 15:13-[address] DOMITILA CHAKRABORTY MD [facility] 08-06-2024 15:13-[address] DOMITILA CHAKRABORTY MD [facility] 08-06-2024 15:13-0500 Body temperature 97.88 [degF] DR DOMITILA CHAKRABORTY MD [address] [place] [address] 08-06-2024 15:13-0500 Diastolic Blood Pressure Non-Invasive 74 mm[Hg] DR DOMITILA CHAKRABORTY MD [address] [place] [address] 08-06-2024 15:13-0500 Heart rate 99 /min DR DOMITILA CHAKRABORTY MD [address] [place] [address] 08-06-2024 15:13-0500 Respiratory rate 18 /min DR DOMITILA CHAKRABORTY MD [address] [place] [address] 08-06-2024 15:13-0500 Systolic Blood Pressure Non-Invasive 124 mm[Hg] DR DOMITILA CHAKRABORTY MD [address] [place] [address] 08-06-2024 08:00-0500 Body weight 155.[address] DOMITILA CHAKRABORTY MD [address] [place] [address] 08-06-2024 07:51-0500 Blood Pressure Cuff Size DR DOMITILA CHAKRABORTY MD [address] [place] [address] 08-06-2024 07:51-[address] DOMITILA CHAKRABORTY MD [address] [place] [address] 08-06-2024 07:51-[address] DOMITILA CHAKRABORTY MD [address] [place] [address] 08-06-2024 07:51-0500 Body temperature 98.06 [degF] DR DOMITILA CHAKRABORTY MD [address] [place] [address] 08-06-2024 07:51-0500 Diastolic Blood Pressure Non-Invasive 80 mm[Hg] DR DOMITILA CHAKRABORTY MD [address] [place] [address] 08-06-2024 07:51-0500 Heart rate 92 /min DR DOMITILA CHAKRABORTY MD [address] [place] [address] 08-06-2024 07:51-0500 Respiratory rate 20 /min DR DOMITILA CHAKRABORTY MD [address] [place] [address] 08-06-2024 07:51-0500 Systolic Blood Pressure Non-Invasive 121 mm[Hg] DR DOMITILA CHAKRABORTY MD [address] [place] [address] 08-05-2024 23:21-0500 Body temperature 98.42 [degF] DR DOMITILA CHAKRABORTY MD [address] [place] [address] 08-05-2024 23:21-0500 Diastolic Blood Pressure Non-Invasive 85 mm[Hg] DR DOMITILA CHAKRABORTY MD [address] [place] [address] 08-05-2024 23:21-0500 Heart rate 95 /min DR DOMITILA CHAKRABORTY MD [address] [place] [address] 08-05-2024 23:21-0500 Respiratory rate 16 /min DR DOMITILA CHAKRABORTY MD [address] 08-05-2024 23:21-0500 Systolic Blood Pressure Non-Invasive 136 mm[Hg] DR DOMITILA CHAKRABORTY MD [address] 08-05-2024 02:12-0500 Body height 165.[address] DOMITILA CHAKRABORTY MD [address] [place] [address] 08-05-2024 02:12-0500 Body weight [address] DOMITILA CHAKRABORTY MD [address] [place] [address] 08-05-2024 02:12-0500 Body weight 47.33 kg/m2 DR DOMITILA CHAKRABORTY MD [address] 08-05-2024 02:10-0500 Reason For Taking VItal Signs DR DOMITILA CHAKRABORTY MD [address] [place] [address] 08-04-2024 22:21-0500 Body temperature 98.42 [degF] [employer]ER[employer]EEP WORKER [facility] 08-04-2024 22:21-0500 Diastolic Blood Pressure Non-Invasive 93 mm[Hg] [employer] ASSEM[employer]ER-[employer]KEEP WORKER [facility] 08-04-2024 22:21-0500 Heart rate 103 /min [employer] ASSEMBLER-[employer]KEEP WORKER [facility] 08-04-2024 22:21-0500 Reason For Taking VItal Signs [employer] ASSEMBLER-[employer]KEEP WORKER [facility] 08-04-2024 22:21-0500 Respiratory rate 20 /min [employer] ASSEMBLER-[employer]KEEP WORKER [facility] 08-04-2024 22:21-0500 Systolic Blood Pressure Non-Invasive 140 mm[Hg] [employer] ASSEMBLER-[employer]KEEP WORKER [facility] 08-04-2024 20:30-0500 Body temperature 98.42 [degF] [employer] ASSEMBLER-[employer]KEEP WORKER [facility] 08-04-2024 20:30-0500 Diastolic Blood Pressure Non-Invasive 86 mm[Hg] [employer] ASSEMBLER-[employer]KEEP WORKER [facility] 08-04-2024 20:30-0500 Heart rate 98 /min [employer] ASSEMBLER-[employer]KEEP WORKER [facility] 08-04-2024 20:30-0500 Reason For Taking VItal Signs [employer]BER [employer] ASSEMBLER[employer]KEEP WORKER [facility] 08-04-2024 20:30-0500 Respiratory rate 20 /min [employer] ASSEMBLER-[employer]KEEP WORKER [facility] 08-04-2024 20:30-0500 Systolic Blood Pressure Non-Invasive 142 mm[Hg] [employer] ASSEMBLER-[employer]KEEP WORKER [facility] 08-04-2024 15:52-0500 Body temperature 98.06 [degF] [employer] ASSEMBLER-[employer]KEEP WORKER [facility] 08-04-2024 15:52-0500 Diastolic Blood Pressure Non-Invasive 83 mm[Hg] [employer] ASSEMBLER-[employer]KEEP WORKER [facility] 08-04-2024 15:52-0500 Heart rate 103 /min [employer] ASSEMBLER-[employer]KEEP WORKER [facility] 08-04-2024 15:52-0500 Reason For Taking VItal Signs [employer] ASSEMBLER-[employer]KEEP WORKER [facility] 08-04-2024 15:52-0500 Respiratory rate 20 /min [employer] ASSEMBLER-[employer]KEEP WORKER [facility] 08-04-2024 15:52-0500 Systolic Blood Pressure Non-Invasive 136 mm[Hg] [employer] ASSEMBLER-[employer]KEEP WORKER [facility] 08-04-2024 11:20-0500 Heart rate 105 /min [employer] ASSEMBLER[employer]KEEP WORKER [facility] 08-04-2024 06:35-0500 Heart rate 80 /min [employer] ASSEMBLER[employer]EEP WORKER [facility] 08-03-2024 23:54-0500 Heart rate 112 /min [employer] ASSEMBLER[employer]EEP WORKER [facility] 08-03-2024 23:47-0500 Body height 165.1 cm [employer] ASSEM[employer]ER[employer]KEEP WORKER [facility] 08-03-2024 23:47-0500 Body weight 124.2 kg [employer] ASSEM[employer]ER[employer]KEEP WORKER [facility] 08-03-2024 23:47-0500 Body weight 45.56 kg/m2 [employer] ASSEM[employer]ER[employer]KEEP WORKER [facility] 08-03-2024 20:10-0500 Body height 165.1 cm [employer] ASSEMBLER-[employer]KEEP WORKER [facility] 08-03-2024 20:10-0500 Body weight 121.5 kg DECEMBER SANDER COMPRESSOR ASSEMBLER-UPKEEP WORKER [facility] 07-15-2024 14:53-0400 SaO2% (BldA) [Mass fraction] 93 % Adan Garcia PEN TESTER-C Work Phone: [facility] 05-20-2024 15:10-0400 Body temperature 97.88 [degF] ESSIE CRANDALL MD [address] [place] [address] 05-20-2024 15:10-0400 Diastolic Blood Pressure Non-Invasive 78 mm[Hg] ESSIE CRANDALL MD [address] 05-20-2024 15:10-0400 Heart rate 72 /min ESSIE CRANDALL MD [address] 05-20-2024 15:10-0400 Respiratory rate 18 /min ESSIE CRANDALL MD [address] 05-20-2024 15:10-0400 Systolic Blood Pressure Non-Invasive 121 mm[Hg] ESSIE CRANDALL MD [address] 05-19-2024 22:21-0400 Body temperature 98.24 [degF] ESSIE CRANDALL MD [address] 05-19-2024 22:21-0400 Diastolic Blood Pressure Non-Invasive 73 mm[Hg] ESSIE CRANDALL MD [address] 05-19-2024 22:21-0400 Heart rate 79 /min ESSIE CRANDALL MD [address] [place] [address] 05-19-2024 22:21-0400 Respiratory rate 18 /min ESSIE CRANDALL MD [address] [place] [address] 05-19-2024 22:21-0400 Systolic Blood Pressure Non-Invasive 119 mm[Hg] ESSIE CRANDALL MD [address] [place] [address] 05-19-2024 17:32-0400 Body temperature 98.24 [degF] ESSIE CRANDALL MD [address] [place] [address] 05-19-2024 17:32-0400 Diastolic Blood Pressure Non-Invasive 72 mm[Hg] ESSIE CRANDALL MD [address] 05-19-2024 17:32-0400 Heart rate 70 /min ESSIE CRANDALL MD [address] 05-19-2024 17:32-0400 Reason For Taking VItal Signs ESSIE CRANDALL MD [address] 05-19-2024 17:32-0400 Respiratory rate 18 /min ESSIE CRANDALL MD [address] 05-19-2024 17:32-0400 Systolic Blood Pressure Non-Invasive 123 mm[Hg] ESSIE CRANDALL MD [address] [place] [address] 05-19-2024 12:16-0400 Heart rate 74 /min ESSIE CRANDALL MD [address] 05-19-2024 12:16-0400 Reason For Taking VItal Signs ESSIE CRANDALL MD [address] [place] [address] 05-19-2024 08:14-0400 Heart rate 72 /min ESSIE CRANDALL MD [address] [place] [address] 05-19-2024 08:14-0400 Reason For Taking VItal Signs ESSIE CRANDALL MD [address] [place] [address] 05-19-2024 01:36-0400 Blood Pressure Cuff Size ESSIE CRANDALL MD [address] [place] [address] 05-19-2024 01:36-0400 Blood Pressure Location ESSIE CRANDALL MD [address] [place] [address] 05-19-2024 01:36-0400 Blood Pressure Method ESSIE CRANDALL MD [address] [place] [address] 05-19-2024 01:36-0400 Heart rate 71 /min ESSIE CRANDALL MD [address] [place] [address] 05-18-2024 22:00-0400 Mean blood pressure 87 mm[Hg] ESSIE CRANDALL MD [address] [place] [address] 05-18-2024 18:36-0400 Blood Pressure Cuff Size ESSIE CRANDALL MD [address] [place] [address] 05-18-2024 18:36-0400 Blood Pressure Location ESSIE CRANDALL MD [address] [place] [address] 05-18-2024 18:36-0400 Blood Pressure Method ESSIE CRANDALL MD [address] [place] [address] 05-18-2024 18:36-0400 Mean blood pressure 83 mm[Hg] ESSIE CRANDALL MD [address] [place] [address] 05-18-2024 14:14-0400 Mean blood pressure 89 mm[Hg] ESSIE CRANDALL MD [address] [place] [address] 05-18-2024 11:02-0400 Heart rate 70 /min ESSIE CRANDALL MD [address] [place] [address] 05-18-2024 08:28-0400 Heart rate 90 /min ESSIE CRANDALL MD [address] [place] [address] 05-17-2024 23:14-0400 Body height 165 cm ESSIE CRANDALL MD [address] [place] [address] 05-17-2024 23:14-0400 Body weight 125 kg ESSIE CRANDALL MD [address] [place] [address] 05-17-2024 23:14-0400 Body weight 45.91 kg/m2 ESSIE CRANDALL MD [address] [place] [address] 05-17-2024 12:03-0400 Body temperature 97.34 [degF] ESSIE CRANDALL MD [address] [place] [address] 05-17-2024 11:56-0400 Body weight 125 kg ESSIE CRANDALL MD [facility] 05-13-2024 12:26-0400 Diastolic Blood Pressure Non-Invasive 73 mm[Hg] PETER [employer]ERRIS COM[employer]OR ASSEMBLER-UPKEEP WORKER [facility] 05-13-2024 12:26-0400 Heart rate 64 /min PETER FERRIS COMPRESSOR ASSEMBLER-UPKEEP WORKER [facility] 05-13-2024 12:26-0400 Respiratory rate 16 /min PETERNOMAN FERRIS COMPRESSOR ASSEMBLER-UPKEEP WORKER [facility] 05-13-2024 12:26-0400 Systolic Blood Pressure Non-Invasive 118 mm[Hg] PETER FERRIS COMPRESSOR ASSEMBLER-UPKEEP WORKER [facility] 05-13-2024 11:00-0400 Diastolic Blood Pressure Non-Invasive 78 mm[Hg] PETER FERRIS COMPRESSOR ASSEMBLER-UPKEEP WORKER [facility] 05-13-2024 11:00-0400 Heart rate 79 /min PETERNOMAN [employer] COMPRESSOR ASSEMBLER-UPKEEP WORKER [facility] 05-13-2024 11:00-0400 Systolic Blood Pressure Non-Invasive 121 mm[Hg] PETERNOMAN [employer] COMPRESSOR ASSEMBLER-UPKEEP WORKER [facility] 05-13-2024 10:55-0400 Diastolic Blood Pressure Non-Invasive 75 mm[Hg] PETER F[employer] COMPRESSOR ASSEMBLER-UPKEEP WORKER [facility] 05-13-2024 10:55-0400 Heart rate 68 /min PETER FERRIS COMPRESSOR ASSEMBLER-UPKEEP WORKER [facility] 05-13-2024 10:55-0400 Systolic Blood Pressure Non-Invasive 114 mm[Hg] PETER FERRIS COMPRESSOR ASSEMBLER-UPKEEP WORKER [facility] 05-13-2024 09:04-0400 Body height 165.1 cm PETER FERRIS COMPRESSOR ASSEMBLER-UPKEEP WORKER [facility] 05-13-2024 09:04-0400 Body temperature 98.06 [degF] PETER FERRIS COMPRESSOR ASSEMBLER-UPKEEP WORKER [facility] 05-13-2024 09:04-0400 Body weight 125.5 kg PETER FERRIS COMPRESSOR ASSEMBLER-UPKEEP WORKER [facility] 05-13-2024 09:04-0400 Body weight 46.04 kg/m2 PETER FERRIS COMPRESSOR ASSEMBLERCUPSUPKEEP WORKER [facility] 05-13-2024 09:04-0400 Reason For Taking VItal Signs PETER FERRIS COMPRESSOR ASSEMBLER-UPKEEP WORKER [facility] 05-13-2024 09:04-0400 Respiratory rate 16 /min PETER FERRIS COMPRESSOR ASSEMBLER-UPKEEP WORKER [facility] 05-13-2024 07:35-0400 Body weight 125.5 kg PETER FERRIS COMPRESSOR ASSEMBLERGameyola [facility] 05-04-2024 14:28-0400 Body temperature 98.42 [degF] JEANNE STANLEY MD [facility] 05-04-2024 14:28-0400 Diastolic Blood Pressure Non-Invasive 83 mm[Hg] JEANNE STANLEY MD [facility] 05-04-2024 14:28-0400 Heart rate 92 /min JEANNE STANLEY MD [facility] 05-04-2024 14:28-0400 Respiratory rate 18 /min JEANNE STANLEY MD [facility] 05-04-2024 14:28-0400 Systolic Blood Pressure Non-Invasive 117 mm[Hg] JEANNE STANLEY MD [facility] 04-20-2024 10:22-0400 Body temperature 96.08 [degF] JESSICA PALACIO MD [facility] 04-20-2024 10:22-0400 Diastolic Blood Pressure Non-Invasive 71 mm[Hg] JESSICA PALACIO MD [facility] 04-20-2024 10:22-0400 Heart rate 78 /min JESSICA PALACIO MD [facility] 04-20-2024 10:22-0400 Respiratory rate 16 /min JESSICA PALACIO MD [facility] 04-20-2024 10:22-0400 Systolic Blood Pressure Non-Invasive 109 mm[Hg] JESSICA PALACIO MD [facility] 04-20-2024 09:55-0400 Diastolic Blood Pressure Non-Invasive 74 mm[Hg] JESSICA PALACIO MD [facility] 04-20-2024 09:55-0400 Heart rate 76 /min JESSICA PALACIO MD [facility] 04-20-2024 09:55-0400 Respiratory rate 15 /min JESSICA PALACIO MD [facility] 04-20-2024 09:55-0400 Systolic Blood Pressure Non-Invasive 114 mm[Hg] JESSICA PALACIO MD [facility] 04-20-2024 09:50-0400 Diastolic Blood Pressure Non-Invasive 69 mm[Hg] JESSICA PALACIO MD [facility] 04-20-2024 09:50-0400 Heart rate 73 /min JESSICA PALACIO MD [facility] 04-20-2024 09:50-0400 Respiratory rate 16 /min JESSICA PALACIO MD [facility] 04-20-2024 09:50-0400 Systolic Blood Pressure Non-Invasive 105 mm[Hg] JESSICA PALACIO MD [facility] 04-20-2024 09:45-0400 Heart rate 75 /min JESSICA PALACIO MD [facility] 04-20-2024 06:53-0400 Body height 165.1 cm JESSICA PALACIO MD [facility] 04-20-2024 06:53-0400 Body temperature 96.44 [degF] JESSICA PALACIO MD [facility] 04-20-2024 06:53-0400 Body weight 124.2 kg JESSICA PALACIO MD [facility] 04-20-2024 06:53-0400 Heart rate 84 /min JESSICA PALACIO MD [facility] 04-11-2024 01:06-0400 Diastolic Blood Pressure Non-Invasive 78 mm[Hg] KATHRIN VENCES MD [facility] 04-11-2024 01:06-0400 Heart rate 82 /min KATHRIN VENCES MD [facility] 04-11-2024 01:06-0400 Mean blood pressure 94 mm[Hg] KATHRIN VENCES MD [facility] 04-11-2024 01:06-0400 Respiratory rate 18 /min KATHRIN VENCES MD [facility] 04-11-2024 01:06-0400 Systolic Blood Pressure Non-Invasive 131 mm[Hg] KATHRIN VENCES MD [facility] 04-10-2024 23:15-0400 Body height 165.1 cm KATHRIN VENCES MD [facility] 04-10-2024 23:15-0400 Body temperature 96.98 [degF] KATHRIN VENCES MD [facility] 04-10-2024 23:15-0400 Body weight 128.18 kg KATHRIN VENCES MD [facility] 04-10-2024 23:15-0400 Diastolic Blood Pressure Non-Invasive 80 mm[Hg] KATHRIN VENCES MD [facility] 04-10-2024 23:15-0400 Heart rate 98 /min KATHRIN VENCES MD [facility] 04-10-2024 23:15-0400 Respiratory rate 18 /min KATHRIN VENCES MD [facility] 04-10-2024 23:15-0400 Systolic Blood Pressure Non-Invasive 116 mm[Hg] KATHRIN VENCES MD [facility] 04-09-2024 05:20-0400 Diastolic Blood Pressure Non-Invasive 80 mm[Hg] ANA WATSON MD [facility] 04-09-2024 05:20-0400 Heart rate 74 /min ANA WATSON MD [facility] 04-09-2024 05:20-0400 Reason For Taking VItal Signs ANA WATSON MD [facility] 04-09-2024 05:20-0400 Respiratory rate 18 /min ANA WATSON MD [facility] 04-09-2024 05:20-0400 Systolic Blood Pressure Non-Invasive 143 mm[Hg] ANA WATSON MD [facility] 04-09-2024 02:55-0400 Diastolic Blood Pressure Non-Invasive 93 mm[Hg] ANA WATSON MD [facility] 04-09-2024 02:55-0400 Heart rate 72 /min ANA WATSON MD [place] [address]-25-2024 02:55-0400 Respiratory rate 18 /min ANA WATSON MD [facility] 04-09-2024 02:55-0400 Systolic Blood Pressure Non-Invasive 151 mm[Hg] ANA WATSON MD [facility] 04-09-2024 01:59-0400 Body temperature 97.88 [degF] ANA WATSON MD [facility] 04-09-2024 01:59-0400 Body weight 127.6 kg ANA WATSON MD [facility] 04-09-2024 01:59-0400 Diastolic Blood Pressure Non-Invasive 81 mm[Hg] ANA WATSON MD [facility] 04-09-2024 01:59-0400 Heart rate 84 /min ANA WATSON MD [facility] 04-09-2024 01:59-0400 Respiratory rate 16 /min ANA WATSON MD [facility] 04-09-2024 01:59-0400 Systolic Blood Pressure Non-Invasive 120 mm[Hg] ANA WATSON MD [facility] 04-09-2024 00:58-0400 Diastolic Blood Pressure Non-Invasive 86 mm[Hg] GEMMA REICHFIELD DO [facility] 04-09-2024 00:58-0400 Heart rate 86 /min GEMMA REICHFIELD DO [facility] 04-09-2024 00:58-0400 Respiratory rate 16 /min GEMMA REICHFIELD DO [facility] 04-09-2024 00:58-0400 Systolic Blood Pressure Non-Invasive 131 mm[Hg] GEMMA REICHFIELD DO [facility] 04-09-2024 00:50-0400 Diastolic Blood Pressure Non-Invasive 86 mm[Hg] GEMMA REICHFIELD DO [facility] 04-09-2024 00:50-0400 Heart rate 86 /min GEMMA REICHFIELD DO [facility] 04-09-2024 00:50-0400 Respiratory rate 16 /min GEMMA REICHFIELD DO [facility] 04-09-2024 00:50-0400 Systolic Blood Pressure Non-Invasive 130 mm[Hg] GEMMA REICHFIELD DO [facility] 04-08-2024 22:38-0400 Body temperature 98.06 [degF] GEMMA REICHFIELD DO [facility] 04-08-2024 22:38-0400 Diastolic Blood Pressure Non-Invasive 82 mm[Hg] GEMMA REICHFIELD DO [facility] 04-08-2024 22:38-0400 Heart rate 86 /min GEMMA REICHFIELD DO [facility] 04-08-2024 22:38-0400 Respiratory rate 16 /min GEMMA REICHFIELD DO [facility] 04-08-2024 22:38-0400 Systolic Blood Pressure Non-Invasive 121 mm[Hg] GEMMA REICHFIELD DO [facility] 04-03-2024 18:30-0400 Body temperature 96.44 [degF] JELANI FAULKNER MD [facility] 04-03-2024 18:30-0400 Diastolic Blood Pressure Non-Invasive 71 mm[Hg] JELANI FAULKNER MD [facility] 04-03-2024 18:30-0400 Heart rate 97 /min JELANI FAULKNER MD [facility] 04-03-2024 18:30-0400 Respiratory rate 16 /min JELANI FAULKNER MD [facility] 04-03-2024 18:30-0400 Systolic Blood Pressure Non-Invasive 109 mm[Hg] JELANI FAULKNER MD [facility] 04-03-2024 16:20-0400 Body temperature 96.62 [degF] JELANI FAULKNER MD [facility] 04-03-2024 16:20-0400 Diastolic Blood Pressure Non-Invasive 84 mm[Hg] JELANI FAULKNER MD [facility] 04-03-2024 16:20-0400 Heart rate 86 /min JELANI FAULKNER MD [facility] 04-03-2024 16:20-0400 Respiratory rate 16 /min JELANI FAULKNER MD [facility] 04-03-2024 16:20-0400 Systolic Blood Pressure Non-Invasive 116 mm[Hg] JELANI FAULKNER MD [facility] 04-03-2024 16:11-0400 Body temperature 97.88 [degF] JELANI FAULKNER MD [facility] 04-03-2024 16:11-0400 Diastolic Blood Pressure Non-Invasive 70 mm[Hg] JELANI FAULKNER MD [facility] 04-03-2024 16:11-0400 Heart rate 91 /min JELANI FAULKNER MD [facility] 04-03-2024 16:11-0400 Mean blood pressure 82 mm[Hg] JELANI FAULKNER MD [facility] 04-03-2024 16:11-0400 Respiratory rate 18 /min JELANI FAULKNER MD [facility] 04-03-2024 16:11-0400 Systolic Blood Pressure Non-Invasive 107 mm[Hg] JELANI FAULKNER MD [facility] 04-03-2024 15:56-0400 Heart rate 89 /min JELANI FAULKNER MD [facility] 04-03-2024 15:56-0400 Mean blood pressure 80 mm[Hg] JELANI FAULKNER MD [facility] 04-03-2024 15:41-0400 Heart rate 99 /min JELANI FAULKNER MD [facility] 04-03-2024 15:41-0400 Mean blood pressure 84 mm[Hg] JELANI FAULKNER MD [facility] 04-03-2024 15:11-0400 Body temperature 98.24 [degF] JELANI FAULKNER MD [facility] 04-03-2024 15:10-0400 Respiratory Rate - Anes 0 br/min JELANI FAULKNER MD [facility] 04-03-2024 15:05-0400 Respiratory Rate - Anes 25 br/min JELANI FAULKNER MD [facility] 04-03-2024 15:00-0400 Respiratory Rate - Anes 18 br/min JELANI FAULKNER MD [facility] 04-03-2024 14:45-0400 Body temperature 98.06 [degF] JELANI FAULKNER MD [facility] 04-03-2024 14:40-0400 Body temperature 98.02 [degF] JELANI FAULKNER MD [facility] 04-03-2024 14:35-0400 Body temperature 97.99 [degF] JELANI FAULKNER MD [facility] 04-03-2024 09:57-0400 Body height 165.1 cm JELANI FAULKNER MD [facility] 04-03-2024 09:57-0400 Body weight 124.4 kg JELANI FAULKNER MD [facility] 04-03-2024 09:57-0400 Heart rate 77 /min JELANI FAULKNER MD [facility] 03-30-2024 07:12-0400 Blood Pressure Cuff Size JELANI FAULKNER MD [facility] 03-30-2024 07:12-0400 Blood Pressure Location JELANI FAULKNER MD [facility] 03-30-2024 07:12-0400 Blood Pressure Method JELANI FAULKNER MD [facility] 03-30-2024 07:12-0400 Body height 166.4 cm JELANI FAULKNER MD [facility] 03-30-2024 07:12-0400 Body temperature 96.98 [degF] JELANI FAULKNER MD [facility] 03-30-2024 07:12-0400 Body weight 126.5 kg JELANI FAULKNER MD [facility] 03-30-2024 07:12-0400 Diastolic Blood Pressure Non-Invasive 80 mm[Hg] JELANI FAULKNER MD [facility] 03-30-2024 07:12-0400 Heart rate 67 /min JELANI FAULKNER MD [facility] 03-30-2024 07:12-0400 Systolic Blood Pressure Non-Invasive 120 mm[Hg] JELANI FAULKNER MD [facility] 01-06-2023 03:19-0400 Body temperature 100.22 [degF] DR JOEY HAYES MD [facility] 01-06-2023 03:19-0400 Diastolic Blood Pressure Non-Invasive [address] JOEY HAYES MD [facility] 01-06-2023 03:19-0400 Heart rate 96 /min DR JOEY HAYES MD [facility] 01-06-2023 03:19-0400 Respiratory rate 20 /min DR JOEY HAYES MD [facility] 01-06-2023 03:19-0400 Systolic Blood Pressure Non-Invasive [address] JOEY HAYES MD [facility] Encounters Encounter Date Encounter Type Care Provider Facility Start: 07-16-2025 ambulatory Coco Sawyer ty:[facility] Start: 06-17-2025 End: 06-17-2025 ambulatory ADAN GARCIA [facility] Start: 05-31-2025 End: 05-31-[address] Pradeep Chandler MD -[facility] Work Phone: Start: 05-31-2025 End: 05-31-2025 ambulatory Adan Garcia P[employer] TESTER-C Work Phone: -[facility] Start: 05-25-2025 End: 05-25-[address] Coco Lima MD -[facility] Work Phone: Start: 05-25-2025 End: 05-25-2025 ambulatory dAan Garcia PEN TESTER-C Work Phone: -[facility] Start: 05-19-2025 End: 05-19-2025 Patient encounter procedure Ellen MARTINSC -[facility] Work Phone: Start: 05-19-2025 End: 05-19-2025 ambulatory Adan Garcia PEN TESTER-C Work Phone: -[facility] Start: 05-18-[address] Ledy Lima MD -[facility] Start: 04-26-2025 End: 04-26-[address] Pradeep Chandler MD -[facility] Work Phone: Start: 04-26-2025 End: 04-26-2025 ambulatory Adan Garcia PEN TESTER-C Work Phone: -[facility] Start: 04-14-2025 ambulatory Pradeep Chandler Facility :[facility] Start: 04-14-2025 Non-patient / Non-visit Dr. Pradeep olmbardo MD -[facility] Start: 04-14-2025 End: 04-14-2025 Admission to same day surgery center Dr. Pradeep Chandler [facility] Start: 04-14-2025 End: 04-14-2025 ambulatory Adan Garcia PEN TESTER-C Work Phone: [facility] Start: 03-29-2025 End: 03-29-[address] Pradeep Chandler MD -[facility] Work Phone: Start: 03-29-2025 End: 03-29-2025 ambulatory Adan Garcia PEN TESTER-C Work Phone: [facility] Start: 03-02-2025 End: 03-02-2025 ambulatory Adan Garcia PEN TESTER-C Work Phone: [facility] Work Phone: Start: 03-02-2025 End: 03-02-[address] Coco Lima MD -Outpatient [facility] D[facility]ometry Work Phone: Start: 03-02-2025 End: 03-02-2025 ambulatory Coco Lima Facility:[facility] Start: 02-17-2025 ambulatory Pradeep Chandler Facility :[facility] Start: 02-17-2025 Non-patient / Non-visit Dr. Te faria MD -[facility]- Start: 02-17-2025 End: 02-17-2025 ambulatory Adan Garcia PEN TESTER-C Work Phone: [facility] Work Phone: Start: 02-17-2025 End: 02-17-[address] Pradeep Chandler MD -Pulmonary Services/Neurology Work Phone: Start: 02-16-2025 End: 02-16-[address] Coco Lima MD -[facility] Work Phone: Start: 02-16-2025 End: 02-17-2025 ambulatory Adan Garcia PEN TESTER-C Work Phone: [facility] Work Phone: Start: 02-11-[address] Mervat Guerra DO -Emergency Department Work Phone: Start: 02-11-2025 ambulatory Mervat Guerra Facility:[facility] Start: 02-11-2025 End: 02-11-2025 ambulatory Adan Garcia PEN TESTER-C Work Phone: [facility] Work Phone: Start: 02-11-2025 End: 02-11-2025 Patient encounter procedure Ellen Dowling PEN TESTER-C -Cat Scan [facility] Work Phone: Start: 02-11-2025 End: 02-11-2025 ambulatory Adan Garcia PEN TESTER Facility:[facility] Start: 02-04-[address] Ledy Lima MD -[facility] Start: 01-25-2025 End: 01-25-[address] Pradeep Chandler MD -[facility] Work Phone: Start: 01-25-2025 End: 01-25-2025 ambulatory Pradeep Chandler Facility:[facility] Start: 01-18-2025 End: 01-18-[address] Pradeep Chandler MD -[facility] Work Phone: Start: 01-18-2025 End: 01-18-2025 ambulatory Pradeep Chandler Facility:[facility] Start: 12-31-2024 End: 12-31-[address] Fox Lopez MD -Laboratory Work Phone: Start: 12-31-2024 End: 12-31-2024 ambulatory Adan Garcia PEN TESTER Facility:[facility] Start: 12-09-2024 End: 12-09-[address] Coco Lima MD -[facility] Work Phone: Start: 12-09-2024 End: 12-09-2024 ambulatory Adan Garcia PEN TESTER Facility:[facility] Start: 12-02-2024 End: 12-02-2024 ambulatory Adan Garcia PEN TESTER-C Work Phone: [facility] Work Phone: Start: 12-02-2024 End: 12-02-[address] Coco Lima MD -Cat Scan, [facility] Work Phone: Start: 12-02-[address] Ledy Lima MD -[facility] Start: 12-02-2024 End: 12-02-2024 ambulatory Adan Garcia PEN TESTER Facility:[facility] Start: 10-19-2024 End: 10-19-[address] Pradeep Chandler MD -[facility] Work Phone: Start: 10-19-2024 End: 10-19-2024 ambulatory Pradeep Chandler Facility:[facility] Start: 2024 End: [address] Coco Lima MD -[facility] Work Phone: Start: 2024 End: 2024 ambulatory Adan Garcia PEN TESTER Facility:[facility] Start: 09-29-2024 ambulatory Adan Garcia PEN TESTER Facil ity:[facility] Start: 09-23-2024 End: 09-23-[address] Coco Lima MD -Ultrasound, [facility] Work Phone: Start: 09-23-2024 End: 09-23-2024 ambulatory Coco Lima Facility:[facility] Start: 09-02-2024 End: 09-02-[address] Coco Lima MD -[facility] Work Phone: Start: 09-02-2024 End: 09-02-2024 ambulatory Adan Garcia PEN TESTER Facility[facility] Start: 09-01-2024 End: 09-01-[address] Coco Lima MD -Cat Scan, [facility] Work Phone: Start: 09-01-2024 End: 09-01-2024 ambulatory Coco Lima Facility:[facility] Start: 08-26-2024 ambulatory Ramona Luke PEN TESTER Fac ility:[facility] Start: 08-26-2024 Non-patient / Non-visit Ramona diop PEN TESTER-C -[facility] Start: 08-26-2024 End: 08-26-2024 Patient encounter procedure Ellen Dowling NP-C -Ultrasound, [facility] Work Phone: Start: 08-25-2024 End: 08-25-2024 Patient encounter procedure Ellen Dowling NP-C -Radiology, [facility] Work Phone: Start: 08-25-2024 End: 08-25-2024 Patient encounter procedure Ellen Dowling NP-C -[facility] Work Phone: Start: 08-25-2024 End: 08-26-2024 ambulatory Adan Garcia NP Facility:[facility] Start: 08-25-2024 End: 08-25-2024 ambulatory Adan Garcia NP Facility:[facility] Start: 08-20-2024 End: 08-20-2024 ambulatory ADAN GARCIA [facility] Start: 08-11-2024 End: 08-11-2024 ambulatory Coco Liam Facility[facility] Start: 08-05-2024 End: 08-06-2024 Evaluation and management of inpatient DR DOMITILA CHAKRABORTY MD [facility] Start: 08-03-2024 End: 08-05-2024 Evaluation and management of inpatient MELONY Huff [employer] WORK[employer] [facility] Start: 07-29-2024 End: 07-29-2024 ambulatory Ellen Dowling NP Facility:[facility] Start: 05-27-2024 ambulatory PETER FERRIS [employer]OR [employer]SEM[employer]KEEP WORKER Facility:A Start: 05-26-2024 ambulatory PETER FERRIS [employer]PRESSOR ASSEMBLER-UPKEEP WORKER Facility:[facility] Start: 05-17-2024 End: 05-20-2024 Evaluation and management of inpatient ESSIE CRANDALL MD [facility] Start: 05-13-2024 ambulatory PETER FERRIS Facility:[facility] Start: 05-13-2024 End: 05-13-2024 ambulatory ADAN GARCIA [employer]KEEP WORKER Facility:[facility] Start: 05-13-2024 End: 05-13-2024 Patient encounter procedure PETER FERRIS [employer] [facility] Start: 05-11-2024 End: 05-11-2024 ambulatory PETER FERRIS Facility:[facility] Start: 05-11-2024 End: 05-11-2024 Patient encounter procedure PETER FERRIS [employer] [facility] Start: 05-04-2024 End: 05-04-2024 ambulatory JEANNE STANLEY Facility:[facility] Start: 05-04-2024 End: 05-04-2024 Patient encounter procedure JEANNE STANLEY MD [facility] Start: 04-23-2024 End: 04-23-2024 ambulatory ADAN GARCIA [employer]KEEP WORKER Facility:[facility] Start: 04-22-2024 End: 04-22-2024 ambulatory ADAN GARCIA [employer] ASSEM[employer]KEEP WORKER Facility:[facility] Start: 04-20-2024 End: 04-20-2024 ambulatory JESSICA PALACIO Facility:[facility] Start: 04-20-2024 End: 04-20-2024 SAME DAY STAY JESSICA PALACIO MD [facility] Start: 04-14-2024 ambulatory PETER FERRIS Facility:[facility] Start: 04-10-2024 End: 04-11-2024 Emergency department patient visit KATHRIN VENCES MD [facility] Start: 04-10-2024 End: 04-10-2024 ambulatory JESSICAHOWARD PALACIO Facility:[facility] Start: 04-09-2024 End: 04-09-2024 Emergency department patient visit ANA WATSON MD [facility] Start: 04-08-2024 End: 04-09-2024 Emergency department patient visit GEMMA FENG DO [facility] Start: 04-03-2024 End: 04-03-2024 ambulatory CE JERONIMO MD Facility:[facility] Start: 04-03-2024 End: 04-03-2024 SAME DAY STAY JELANI FAULKNER MD [facility] Start: 03-30-2024 End: 03-30-2024 Admission to establishment JELANI FAULKNER MD [facility] Start: 03-30-2024 End: 03-30-2024 ambulatory ADAN GARCIA [employer] ASSEM[employer]ER[employer]KEEP WORKER Facility:[facility] Start: 03-25-2024 End: 03-26-2024 ambulatory ADAN GARCIA [employer] ASSEMBLER[employer]UPKEEP WORKER Facility:[facility] Start: 03-25-2024 End: 03-25-2024 Patient encounter procedure CAROLINE SIMMONS MD [facility] Start: 03-23-2024 End: 03-23-2024 ambulatory CAROLINE SIMMONS Facility[facility] Start: 03-23-2024 End: 03-23-2024 Patient encounter procedure CAROLINE SIMMONS MD [facility] Start: 03-10-2024 End: 03-14-2024 ambulatory CAROLINE SIMMONS Facility:[facility] Start: 03-10-2024 End: 03-14-2024 Outreach Lab CAROLINE SIMMONS MD [facility] Start: 03-10-2024 End: 03-10-2024 ambulatory CAROLINE SIMMONS Facility:[facility] Start: 03-10-2024 End: 03-10-2024 Patient encounter procedure CAROLINE SIMMONS MD [facility] Start: 07-29-2023 End: 07-29-2023 ambulatory CAROLINE SIMMONS Facility:[facility] Start: 07-29-2023 End: 07-29-2023 Patient encounter procedure CAROLINE SIMMONS MD [facility] Start: 01-06-2023 End: 01-06-2023 Emergency department patient visit DR JOEY HAYES MD [facility] Procedures Date Procedure Procedure Detail Performing Clinician Start: 04-14-2025 Arthroscopy of ankle Da phil Garcia PEN TESTER-C Work Phone: Start: 03-02-2025 Dual energy X-ray absorptiometry Adan Garcia PEN TESTER-C Work Phone: Start: 02-11-2025 Hepatitis C antibody measurement Adan Garcia PEN TESTER-C Work Phone: Comment on above: Reactive: Presumptiv e evidence of antibodies to HCV. Follow CDC recommendations for supplemental testing.Non-Reactive: Antibodies to HCV were not detected; does not exclude the possibility of exposure to HCVReactive Results are presumptive evidence of antibodies to HCV. Follow CDC recommendations for supplemental testing.Order confirmation testing: HCV Quant by PCR testing - HCVPCR #[id number] Non Reactive: < 0.8 Equivocal: >/= 0.8 to < 1.0 Reactive: >/= 1.0The CDC requires that a reactive/equivocal HCV antibody result be sent out for confirmation. HCV Quant by PCR testing. Start: 02-11-2025 CT of thorax, abdome n and pelvis with contrast Adan Garcia PEN TESTER-C Work Phone: Start: 12-31-2024 Gram stain microscopy D nuristony Radha PEN TESTER-C Work Phone: Start: 12-31-2024 End: 12-31-2024 Respiratory microbial culture Adan aGrcia P[employer] TESTER-C Work Phone: Start: 12-02-2024 CT of thorax, abdome n and pelvis with contrast Adan Chairezler PEN TESTER-C Work Phone: Start: 12-02-2024 Estimated creatinine clearance Adan Chairezler PEN TESTER-C Work Phone: Start: 12-02-2024 Serum inorganic phos phate measurement Adan Chairezler P[employer] TESTER-C Work Phone: Start: 10-08-2024 Measurement of renal function Adan Garcia PEN TESTER-C Work Phone: Comment on above: GFR Calc Start: 09-23-2024 Ultrasonography of abdomen Adan Chairezler P[employer] TESTER-C Work Phone: Start: 09-01-2024 CT of thorax, abdome n and pelvis with contrast Adan Garcia PEN TESTER-C Work Phone: Start: 08-26-2024 Anaerobic microbial culture Adan Chairezler P[employer] TESTER-C Work Phone: Start: 08-26-2024 Gram stain microscopy D nurisarshfadia Radha PEN TESTER-C Work Phone: Start: 08-26-2024 Microbial culture, b codie fluid Adan Chairezler P[employer] TESTER-C Work Phone: Start: 08-26-2024 Plain chest X-ray Albert Chairezler PEN TESTER-C Work Phone: Start: 08-26-2024 Ultrasonic guidance for thoracentesis Adan Radha P[employer] TESTER-C Work Phone: Start: 08-25-2024 X-ray of chest, PA a nd lateral views Adan Garcia PEN TESTER-C Work Phone: Start: 07-15-2024 Urine culture Adan Garcia P[employer] TESTER-C Work Phone: Start: 07-15-2024 Urnls dip stick/tabl et reagent auto microscopy Adan Garcia P[employer] TE[employer]-C Work Phone: Start: 07-01-2024 Reactive lymphocyte count Adan Garcia P[employer] TESTER-C Work Phone: Start: 07-01-2024 Urine culture Adan Garcia PEN TESTER-C Work Phone: Start: 09-16-2016 Dilation and curetta ge of uterus DR JOEY HAYES MD Start: 09-16-2008 Colposcopy CAROLINE HOFFMAN MD Start: 09-16-2008 Loop electrosurgical excision procedure CAROLINE SIMMONS MD Start: 09-16-[address] JOEY HAYES MD History of total hysterectomy with bilateral salpingo-oophorectomy [employer]BER [employer]EEP WORKER Plan of Treatment Date Care Activity Detail Author Start: 05-18-2025 Cancer Ag 125 [Units/volume] in Serum or Plasma [facility] Start: 04-14-2025 Anes nerve muscle tdn fascia&bursa forearm wrist ANESTH LOWER ARM SURGERY [facility] Start: 04-14-2025 Ndsc wrst surg w/rls transvrs carpl ligm WRIST ENDOSCOPY/SURGERY [facility] Start: 04-14-2025 Patient discharge [facility] Start: 04-14-2025 Application of ice collar, cap or bag [facility] Start: 04-14-2025 Assessment of risk of venous thromboembolism [facility] Start: 04-14-2025 Catheterization of vein [facility] Start: 04-14-2025 Continuous positive airway pressure ventilation treatment [facility] Start: 04-14-2025 Elevation of affected extremity [facility] Start: 04-14-2025 Following clinical pathway protocol [facility] Start: 04-14-2025 Incentive spirometry [facility] Start: 04-14-2025 Introduction of urinary catheter [facility] Start: 04-14-2025 Vital signs measurements [facility] Start: 04-14-2025 [facility] Start: 03-02-2025 DXA Bone [Mass/Area] Bone density [facility] Start: 02-17-2025 [facility] Start: 02-11-2025 Venous catheter care management [facility] Start: 12-02-2024 Venous catheter care management [facility] Start: 09-01-2024 Venous catheter care management [facility] Start: 08-26-2024 Thoracentesis needle/cath pleura w/imaging ASPIRATE PLEURA W/ IMAGING [facility] Start: 08-26-2024 Patient discharge [facility] Start: 08-26-2024 Vital signs measurements [facility] Start: 06-04-2024 Venous catheter care management [facility] Cancer Ag 125 [Units /volume] in Serum or Plasma [facility] Cancer Ag 125 [Units /volume] in Serum or Plasma [facility] Cancer Ag 125 [Units /volume] in Serum or Plasma [facility] CBC W Auto Different ial panel - Blood [facility] CBC W Auto Different ial panel - Blood [facility] metabo lic 1999 panel - [facility] Serum or Plasma [facility] CT Abdomen and Pelvi s W contrast IV [facility] CT Abdomen and Pelvi s W contrast IV [facility] DXA Bone [Mass/Area] Bone density [facility] Heparin associated thrombocytopenia assay [facility] Microscopic observat ion [Identifier] in Body fluid by Cyto stain [facility] Partial thromboplast in time, activated [facility] Patient Education Carpal Tunnel Release Surgery [facility] Work Phone: Patient referral [facility] Work Phone: Platelet function test [facility] Platelets [#/volume] in Blood [facility] Prothrombin time [facility] XR Chest PA and Lateral Woos [facility] [place] Immunizations Immunization Date Immunization Notes Care Provider Fa cility 08-07-2021 SARS-CoV-2 (COVID-19 ) mRNA-1273 vaccine JELANI FAULKNER MD [facility] Comment on above: Result Comment: 2023: TPV15 10-10-2020 SARS-CoV-2 (COVID-19 ) mRNA-[address] JOEY HAYES MD [facility] Comment on above: Result Comment: 2020: TPV15 09-12-2020 SARS-CoV-2 (COVID-19 ) mRNA-[address] JOEY HAYES MD [facility] Comment on above: Result Comment: 2020: TPV15 07-20-2016 influenza virus vaccine, unspecified formulation DR JOEY HAYES MD [facility] 12-09-2013 tetanus toxoid, redu kayla diphtheria toxoid, and acellular pertussis vaccine, adsorbed Adan Garcia [facility] Work Phone: [facility] 07-10-2013 influenza virus vaccine, unspecified formulation DR JOEY HAYES MD [facility] 07-09-2013 Influenza virus vaccine Jim Garcia P[facility] TE[facility]C Work Phone: [facility] 07-02-2013 influenza virus vaccine, unspecified formulation DR JOEY HAYES MD [facility] Payers Date Payer Category Payer Unknown [id number] 2024 Self-pay 2024 Unknown [id number] 2023 Unknown [id number] 1980 Unknown [id number] 2.16.8 40.1.681634.3.579.2.627 1981 Unknown [id number] 2.16.8 40.1.820681.3.579.2.627 1981 Unknown [id number] 2.16.8 40.1.364578.3.579.2.7 1981 Unknown [id number] 2.16.8 40.1.793767.3.579.2.7 1981 Unknown [id number] 2.16.8 40.1.764555.3.579.2.7 1981 Unknown [id number] 2.16.8 40.1.997656.3.579.2.7 1981 Unknown [id number] 2.16.8 40.1.939013.3.579.2. 1981 Unknown [id number] 2.16.8 40.1.555306.3.579.2. 1981 Unknown [id number] 2.16.8 40.1.110980.3.579.2. 1981 Unknown [id number] 2.16.8 40.1.663270.3.579.2. 1981 Unknown [id number] 2.16.8 40.1.986353.3.579.2.7 1981 Unknown [id number] 2.16.8 40.1.280570.3.579.2. 1981 Unknown [id number] 2.16.8 40.1.166923.3.579.2. 1981 Unknown [id number] 2.16.8 40.1.986767.3.579.2. 1981 Unknown [id number] 2.16.8 40.1.491762.3.579.2. 1981 Unknown [id number] 2.16.8 40.1.633816.3.579.2. 1981 Unknown [id number] 2.16.8 40.1.961226.3.579.2.627 1981 Unknown [id number] 2.16.8 40.1.754639.3.579.2.627 1981 Unknown [id number] 2.16.8 40.1.043362.3.579.2.627 1981 Unknown [id number] 2.16.8 40.1.275526.3.579.2.7 1981 Unknown [id number] 2.16.8 40.1.950828.3.579.2.627 1981 Unknown [id number] 2.16.8 40.1.381673.3.579.2.7 1981 Unknown [id number] 2.16.8 40.1.941148.3.579.2.7 1981 Unknown [id number] 2.16.8 40.1.346057.3.579.2. 1981 Unknown [id number] 2.16.8 40.1.080926.3.579.2.7 1981 Unknown [id number] 2.16.8 40.1.073748.3.579.2.7 1981 Unknown [id number] 2.16.8 40.1.437453.3.579.2.7 1981 Unknown [id number] 2.16.8 40.1.192895.3.579.2.7 1981 Unknown [id number] 2.16.8 40.1.359282.3.579.2.627 1981 Unknown [id number] 2.16.8 40.1.065603.3.579.2.651 1981 Unknown [id number] 2.16.8 40.1.260751.3.579.2.651 Unknown [id number] 2.16.8 40.1.656898.3.579.2.462 Unknown [id number] 2.16.8 40.1.688772.3.579.2.462 Unknown [id number] 2.16.8 40.1.803152.3.579.2.462 Unknown [id number] 2.16.8 40.1.251086.3.579.2.462 Unknown [id number] 2.16.8 40.1.958504.3.579.2.462 Unknown [id number] 2.16.8 40.1.279331.3.579.2.462 Unknown [id number] 2.16.8 40.1.730226.3.579.2.462 Unknown [id number] 2.16.8 40.1.233534.3.579.2.462 Unknown [id number] 2.16.8 40.1.942537.3.579.2.462 Unknown [id number] 2.16.8 40.1.953309.3.579.2.462 Unknown [id number] 2.16.8 40.1.538644.3.579.2.462 Unknown [id number] 2.16.8 40.1.085590.3.579.2.462 Unknown [id number] 2.16.8 40.1.274866.3.579.2.462 Unknown [id number] 2.16.8 40.1.877086.3.579.2.462 Unknown [id number] 2.16.8 40.1.029805.3.579.2.462 Unknown [id number] 2.16.8 40.1.231696.3.579.2.462 Unknown [id number] 2.16.8 40.1.443183.3.579.2.462 Unknown [id number] 2.16.8 40.1.143578.3.579.2.462 Unknown [id number] 2.16.8 40.1.447955.3.579.2.462 Unknown [id number] 2.16.8 40.1.078222.3.579.2.462 Unknown [id number] 2.16.8 40.1.975348.3.579.2.462 Unknown [id number] 2.16.8 40.1.280545.3.579.2.462 Unknown [id number] 2.16.8 40.1.361952.3.579.2.462 Unknown [id number] 2.16.8 40.1.192706.3.579.2.462 Unknown [id number] 2.16.8 40.1.454714.3.579.2.462 Unknown [id number] 2.16.8 40.1.546919.3.579.2.462 Unknown [id number] 2.16.8 40.1.463638.3.579.2.462 Unknown [id number] 2.16.8 40.1.050036.3.579.2.462 Unknown [id number] 2.16.8 40.1.496786.3.579.2.462 Unknown [id number] 2.16.8 40.1.061111.3.579.2.462 Unknown [id number] 2.16.8 40.1.277221.3.579.2.462 Social History Date Type Detail Facility Start: 10-13-2020 End: 04-06-2025 Tobacco smoking status Never smoked tobacco (finding) [facility] Sex Assigned At Sex [facility] Start: 12-10-2024 Sex Female (finding) [facility] Start: 1980 Sex Assigned At Female [facility] Not [facility] Goals Date Patient Goal Desired Activity /State Functional Status Date Assessment Result Facility 08-06-2024 Functional Status Bathroom light on, Non-Slip footwear, Room check performed [facility] 08-06-2024 Functional Status [facility] 08-06-2024 Functional Status [facility] 08-06-2024 Functional Status [facility] 08-05-2024 Functional Status [facility] 08-05-2024 [address] refused [facility] 08-05-2024 Functional Status [facility] 08-05-2024 Functional Status [facility] 08-05-2024 Functional Status Done [facility] Mar[facility] 08-05-2024 Functional Status Personal ADL, Work [facility] 08-05-2024 Functional Status Sensory Deficits None A [facility] 08-04-2024 Functional Status Room check performed [facility] 08-04-2024 Functional Status Daryn Rodríguez [facility] 08-04-2024 Functional Status Sequential Com pression Device bilateral knee high applied/on [facility] 08-04-2024 Functional Status Daryn Rodríguez [facility] 08-04-2024 Functional Status Daryn Rodríguez [facility] 08-04-2024 Functional Status Nurse Karla segal q2hrs Performed Other: 11:45-7am [facility] 08-03-2024 Functional Status Repositions self [facility] 08-03-2024 Functional Status Ambulation Ambulation i n [facility] 05-20-2024 Functional Status Room check performed [facility] 05-20-2024 Functional Status Daryn [facility] 05-20-2024 Functional Status Done Daryn Rodríguez [facility] 05-19-2024 Functional Status Nurse Karla segal q2hrs Performed 7pm-7am [facility] 05-19-2024 Functional Status Daryn Rodríguez [facility] 05-19-2024 Functional Status Ambulation in Room [facility] 05-19-2024 Functional Status Single level home [facility] 05-19-2024 Functional Status Independent [facility] Rod[facility] 05-19-2024 Functional Status [facility] 05-18-2024 Functional Status [facility] 05-17-2024 Functional Status [facility] 05-13-2024 Functional Status Independent [facility] 04-20-2024 Functional Status Awake, Resting [facility] 04-20-2024 Functional Status [facility] 04-20-2024 Functional Status Maintained [facility] 04-11-2024 Functional Status Independent Daryn Rodríguez [facility] 04-10-2024 Functional Status Independent [place] [facility] 04-09-2024 Functional Status Independent [facility] 04-09-2024 Functional Status Room check performed [facility] 04-08-2024 Functional Status ID band on, Call device within reach, Bed in low position [facility] 04-03-2024 Functional Status Safety level maintained [facility] 04-03-2024 Functional Status Repositions self [facility] 04-03-2024 Functional Status Patient Identi fied Identification band, Verbal [facility] 04-03-2024 Functional Status Maintained [facility] 03-30-2024 Functional Status Sensory Deficits None A [facility] 01-06-2023 Functional Status ID band on, Call device within reach, Bed in low position, Wheels locked, Upper/Half-Length side-rails up, Phone within reach, Bedside Cart Locked, Visitor at bedside [facility] Mental Status Date Assessment Result Facility 04-14-2025 Cognitive function Voice/Name [facility] Work Phone: 08-26-2024 Cognitive function Level Of Cons ciousness Awake;Alert;Appropriate [facility] Work Phone: 08-06-2024 Mental Status Oriented x 4 [facility] 08-05-2024 Mental Status [facility] 08-05-2024 Mental Status [facility] 08-04-2024 Mental Status Oriented x 4 [facility] 08-04-2024 Mental Status [facility] 08-04-2024 Mental Status [facility] 05-20-2024 Mental Status Oriented x 4 [facility] 05-20-2024 Mental Status [facility] 05-19-2024 Mental Status [facility] 05-13-2024 Mental Status Orientation Oriented x 4 [facility] 04-20-2024 Mental Status Oriented x 4 [facility] 04-20-2024 Mental Status [facility] 04-11-2024 Mental Status Orientation Oriented x 4 [facility] 04-10-2024 Mental Status [facility] 04-09-2024 Mental Status Orientation Oriented x 4 [facility] 04-09-2024 Mental Status [facility] 04-08-2024 Mental Status Orientation Oriented x 4 [facility] 04-03-2024 Mental Status Orientation Oriented x 4 [facility] 04-03-2024 Mental Status [facility] 04-03-2024 Mental Status Orientation Asse ssment Oriented x 4 [facility] 01-06-2023 Mental Status Oriented x 4 [facility] Clinical Notes 01-06-2023 to 04-14-2025 Note Date & Type Note Facility 04-14-2025 History and physi mona note Note Date/Time April 14, 2025 10:34am [facility] Medical Records Department [address] [place] [address] History & Physical Exam 04/14/25 1028 MR#: [id number] Acct: [id number] Name: JESSICA ALARCON Rep #:[id number] : 1980 44 From: Pradeep Chandler MD PCP: Adan Garcia P[facility] TESTER-C Status:REG S DC Location: [place] [address] HPI - General HPI Narrative JESSICA ALARCON, is a 44 F who presents for bilateral ECTR. no change to h and p. rab, post op instructions given. wrists marked. ok to proceed. MR#: [id number] Acct: [id number] Name: JESSICA ALARCON Rep #: [id number] : 1980 Provider: Dr. Pradeep Chandler MD Age/Sex: 44/F Location[place] [email or web address] Status: Signed Intake Vital Signs 02/17/2516:05 Height 5 ft 6 in Intake Visit Reasons: bilateral wrist Allergies paclitaxel (From Taxol) Allergy (Severe, Verified 03/29/25 10:59) Anaphylaxis Medications ?Medication ?Instructions ?Recorded ?Confirmed ?Type MAGIC MOUTH WASH (BMX) 180 mL ml PO #180 mL 05/14/24 03/29/25 History suspension albuterol sulfate 90 mcg/actuation 1 inh inhalation ONCE 05/14/24 03/29/25 Hi story aerosol inhaler loratadine 10 mg tablet (Claritin) 10 mg PO DAILY 05/14/24 03/29/25 History dicyclomine 20 mg tablet 20 mg PO .QID PRN 06/04/24 03/29/25 Hist ory loperamide 2 mg capsule 2 mg PO Q6H PRN 06/04/24 03/29/25 Histor y omeprazole 20 mg tablet,delayed 20 mg PO QDAY 06/04/24 03/29/25 History release prochlorperazine maleate 10 mg 10 mg PO Q6H PRN nausea and 06/04/24 Rx tablet vomiting #30 tabs dexamethasone 4 mg tablet 8 mg (2 x 4 mg) PO .COMPLEX #12 06/17/24 03/29/25 Rx tabs lidocaine-prilocaine 2.5 %-2.5 % 1 applic topical ONCE PRN PORT 06/17/24 03/29/25 Rx topical cream ACCESS 30 days #30 grams nystatin 100,000 unit/mL oral 5 ml PO Q6H PRN #473 mL 07/15/24 5 Rx suspension nystatin 100,000 unit/gram topical 1 applic topical BID #30 grams 07/21/24 03/29/25 Rx cream ondansetron 8 mg disintegrating 8 mg PO Q8H PRN nausea and 08/12/2403/16 Rx tablet vomiting #30 tabs letrozole 2.5 mg tablet (Femara) 2.5 mg PO QDAY 30 days #30 tabs 09/02/24 03/29/25 Rx clonazepam 0.5 mg tablet 0.5 mg PO DAILY PRN 12/09/24 03/29/25 Hi story fluoxetine 20 mg tablet 40 mg PO DAILY 12/09/24 03/29/25 History PFSH Medical History Bilateral carpal tunnel syndrome Swelling of both lower extremities Cough Pleural effusion Candidiasis of breast UTI (urinary tract infection) Dysuria Oral candidiasis Diarrhea due to drug Encounter for chemotherapy management 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 carcinomatosis Ovarian cancer Acute superficial venous thrombosis of lower extremity Anxiety and depression Carcinoma of ovary, stage 3 Surgical History History of appendectomy History of colposcopy H/O LEEP History of hysterectomy Family History Aunt Breast cancer Cancer Father's sideAunt Breast cancer Great aunt Social History Smoking Status: Never smoker alcohol intake: current alcohol intake frequency: holidays/special occasions only substance use type: does not use HPI bilateral wrist Details: This documentation accurately reflects the service provided and the decisions made by me, Dr. Pradeep Chandler MD 03/29/25 9345. Part of today?s visit was documented by [ ], acting as scribe. JESSICA ALARCON is a 44 year old F here today for FU bilat NCS for CTS.. Had a cortisone injection for her right carpal tunnel syndrome that was about 6 weeks ago it did help but unfortunately now it has worn off and the patient is desiring to go ahead with a more definitive surgical solution. Supplemental Info [facility] Pulmonary Services/Neurology [address] [place] [address] MR#: [id number] Acct: [id number] Name: JESSICA ALARCON Rep #: [id number] : 1980 44 From: Te Zeng MD Referring Dr: Pradeep Chandler MD Status: REG CL Location: N Date: 02/17/25 Sex: F C NCS and/or EMG Patient Report Ordering Doctor: Pradeep Chandler DATE OF SERVICE: 02/17/25 Jessica presents with complaints of numbness and tingling in the first 4 digits of each hand. Symptoms been present for several years. Electrodiagnostic Findings: Median motor nerve demonstrates normal distal latency, amplitude and conduction velocity bilaterally. Normal ulnar motor response bilaterally. Normal median and ulnar F?waves. Prolonged median sensory latency at the wrist and palm bilaterally. Normal ulnar and radial sensory responses. Needle EMG testing was performed in the upper limbs. All muscles tested showed no evidence of denervation with normal motor unit action potentials. Electrodiagnostic impression: This is an abnormal study in the upper limbs 1. Electrodiagnostic findings suggestive of bilateral median mononeuropathy. This consistent with a mild bilateral carpal tunnel syndrome. Multi Select Codes Neurology Neurology Interp Codes: 94433-47 Musc test done w/n test comp (interp) (2) and 15558-04 Nrv cndj test 13/> studies (interp) Coding Level of Care Code Off vis,est,level 4 Diagnoses Bilateral carpal tunnel syndrome G56.03 Assessment and Plan Assessment and Plan (1) Bilateral carpal tunnel syndrome: Status: Acute Plan: 44-year-old female with bilateral carpal tunnel syndrome. Electrodiagnostic findings suggestive of bilateral median mononeuropathy. This consistent with a mild bilateral carpal tunnel syndrome. Discussed the pros and cons risks and benefits of continued nonoperative management versus surgical release. This can be done open or endoscopically. There are pros and cons to each method. Generally slightly quicker recovery with less pain with endoscopic although possibly higher risk of incomplete release. We can do one-sided a time or both at once, again there are pros and cons to each. That being said the patient wants to go ahead with endoscopic carpal tunnel release. pros and cons risks and benefits were discussed with the patient including but not limited to infection, pain, stiffness, bleeding, damage to surrounding structures, neurovascular injury, recurrence or retear, failure or wear of hardware or fixation, instability, fracture, deep vein thrombosis and pulmonary embolism, anesthetic risks, , patient dissatisfaction, need for further surgery and other risks. Patient understood and wished to proceed with surgery,and signed the informed consent documentation. Carpal Tunnel Syndrome (CTS) occurs when the median nerve, which runs through the wrist, becomes compressed. Treatment options vary based on the severity of the condition: Non-Surgical Treatments: Wrist Splinting: Wearing a splint at night to keep the wrist in a neutral position. Activity Modification: Avoiding repetitive wrist movements or adjusting work habits. Physical Therapy: Exercises to improve wrist and hand function. Medications: Anti-inflammatory drugs (NSAIDs) or corticosteroid injections to reduce swelling and pain. Surgical Treatment: Carpal Tunnel Release Surgery: A procedure where the ligament pressing on the median nerve is cut to relieve pressure. This is considered when non-surgical treatments are ineffective. Options are min-open or endoscopic. Ortho Exam General General: Yes no acute distress Neurologic: Yes alert and Yes oriented x3 Psychologic: Yes reasonable and appropriate Right Wrist/Hand Skin/Wound: Yes CDI, No Swelling, No Ecchymosis, Yes nail intact and Yes capillary refill normal Left Wrist/Hand Skin/Wound: Yes CDI, No Swelling and No Ecchymosis PFSH Medical History (Updated 04/06/25 @ 11:38 by Margarette Lynne) Wears glasses Gastric reflux Asthma Non-smoker History of pain when walking History of edema History of echocardiogram Cancer Bilateral carpal tunnel syndrome Cough Pleural effusion Candidiasis of breast Dysuria Oral candidiasis Diarrhea due to drug Encounter for chemotherapy management 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 carcinomatosis Ovarian cancer Acute superficial venous thrombosis of lower extremity Anxiety and depression Carcinoma of ovary, stage 3 Home Medications ?Medication ?Instructions ?Recorded ?Last Taken ?Type albuterol sulfate 90 mcg/actuation 1 inh inhalation Q4 H PRN shortness 05/14/24 Unknown History aerosol inhaler of breath or wheezing loperamide 2 mg capsule 2 mg PO Q6H PRN diarrhea Unknown History omeprazole 20 mg tablet,delayed 20 mg PO QDAY 06/04/24 04/14/25 History release lidocaine-prilocaine 2.5 %-2.5 % 1 applic topical ONCE PRN PORT 06/17/24 Unknown Rx topical cream ACCESS 30 days #30 grams ondansetron 8 mg disintegrating 8 mg PO Q8H PRN nausea and 08/12/24 04/14/25 Rx tablet vomiting #30 tabs clonazepam 0.5 mg tablet 0.5 mg PO DAILY PRN anxiety 12/09/24 Unknown History fluoxetine 20 mg tablet 40 mg PO DAILY 12/09/2403/17 History calcium carbonate 200 mg calcium 2 tab PO QHS 04/06/25 Unknown History (500 mg)-vitamin D3 400 unit tablet letrozole 2.5 mg tablet (Femara) 2.5 mg PO QHS 5 04/13/25 History loratadine 10 mg tablet (Claritin) 10 mg PO DAILY 03/17 11/10 Unknown History Allergy/AdvReac Type Severity Reaction Status Date / Time paclitaxel (From Taxol) Allergy Severe Anaphylaxis Verified 04/14/25 09:37 Family History Aunt Breast cancer Cancer Father's side Aunt Breast cancer Great aunt Surgical History (Updated 04/06/25 @ 11:38 by Margarette Lynne) Hx of total hysterectomy History of appendectomy History of colposcopy H/O LEEP Social History Smoking Status: Never smoker alcohol intake: current alcohol intake frequency: holidays/special occasions only substance use type: does not use Vital Signs Vital Signs Vital Signs: 04/14/25 09:38 04/14/25 09:38 04/14/25 10:20 Temperature 97.6 F L 97.6 F L Temperature Source Temporal Pulse Rate 94 94 Respiratory Rate 16 16 Respiratory Pattern Normal Blood Pressure 133/92 H 133/92 H Blood Pressure Mean 105 Blood Pressure Source Monitor Blood Pressure Position Semi-Fowlers Blood Pressure Location Left Arm Pulse Ox 97 97 Oxygen Delivery Method Room Air Room Air Weight Weight: 291 lb Body Mass Index (BMI) 47.0 04/14/25 1034 <Electronically signed by Pradeep Chandler MD> Cosigner Signature (if applicable): CC: PEN TESTERZaki Garcia; Dr. Pradeep Chandler MD~ Signed [facility] Work Phone: 1(713) 203-844307-30-2025 Consult note Author Nikolay Parikhmel [facility] Note Date/Time April 14, 2025 10:2 0am [facility] Medical Records Department [address] [place] [address] Pre-Anesthesia Evaluation 04/14/25 1014 MR#: [id number] Acct: [id number] Name: JESSICA ALARCON Rep #:[id number] : 1980 44 From: Nikolay Wilkinson PCP: DIANNE Daniel Status:REG S DC Y Race: C Location: [place] [address] ASA Classification* ASA Classification ASA Classification: 3 Assessment & Plan Anesthesia* Anesthesia Assessment Anesthesia Assessment: Discussed sedation and/or anesthesia options, risks, benefits, and alternatives with patient/parents/legal guardian/POA. Questions invited. The patient/parents/legal guardian/POA seems to understand and agrees to proceedwith anesthesia plan. Reviewed the physical assessment, medical history, allergy history and patient home medications list prior to surgery/procedure/anesthetic and documented any changes. Performed airway and anesthesia risk assessments. Anesthesia Type Anesthesia Type: General (Discussed choice of MAC vs IV GA/LMA with patient. Sheprefers the IV GA, had a bad experience under MAC with her Port placement for Ovarian CA) History Source History Obtained from:: Patient and Chart Anesthesia Focused Assessment* Temperature: 97.6 F Pulse Rate: 94 Blood Pressure: 133/92 Respiratory Rate: 16 Pulse Ox: 97 Oxygen Delivery Method: Room Air Airway Assessment Mouth opens: >3 cm Mallampati Score: II Teeth Condition: Intact Neck Range of motion (ROM): Full ROM Labs Anesthesia Preop lab: CBC WBC 9.7 K/mm3 (4.4-11.0) 02/11/25 09:05 02/11/25 RBC 4.19 M/mm3 (4.2-5.4) L 02/11/25 09:05 02/11/25 Hgb 12.4 g/dL (12.0-15.0) 02/11/25 09:05 02/11/25 Hct 37.2 % (37-47) 02/11/25 09:05 02/11/25 Plt Count 185 K/mm3 (150-450) 02/11/25 09:05 02/11/25 CHEMISTRY Potassium 4.2 mmol/L (3.3-5.1) 02/11/25 09:05 02/11/25 Sodium 138 mmol/L (133-145) 02/11/25 09:05 02/11/25 Magnesium 2.1 mg/dL (1.5-2.2) 12/02/24 07:42 12/02/24 Phosphorus 3.5 mg/dL (2.7-4.5) 12/02/24 07:42 12/02/24 BUN 19 mg/dL (4-19) 02/11/25 09:05 02/11/25 Creatinine 0.64 mg/dL (0.70-1.20) L 02/11/25 09:05 Glucose 91 mg/dL (70-99) 02/11/25 09:05 02/11/25 COAG PT 13.9 SECONDS (11.7-14.9) 08/25/24 15:50 HCG, Quant [id number] mIU/mL (<9 non-preg) H 09/16/13 17:55 0 09/16/13 Pre-Assessment Diagnosis/Proposed Procedure Planned Operative Procedure(s): BILAT ENDOSCOPIC CARPAL TUNNEL RELEASE Anesthesia History Anesthesia History - ppap coordinator: Anesthesia History - ppap coordinator Hx Hospitalization Yes: 06/2024 PNEUMONIA 04/06/25 11:28 2023 POST CHEMO Any Problems With Anesthesia No 04/06/25 11:28 Cholinesterase deficiency No 04/06/25 11:28 You/Your Family Experience No 04/06/25 11:28 fever (hyperthermia) with Relationship Recent Exposure to Contagious No 04/14/25 09:38 Disease Does patient have nerve No 04/06/25 11:28 stimulator Patient instructed to have device shut off --Does patient have Pacemaker No 04/14/25 09:38 or ICD? When Was Last Pacemaker Check QUESTION #4 FULL TEXT: You/Your Family Experience fever (hyperthermia) with Anesthesia Last Oral Intake Last Oral intake: Last Oral Intake NPO since 08:00 04/14/25 09:38 Meds taken in AM with sips of water? Meds patient instructed to take am of surgery PONV PONV - ppap coordinator: PONV - ppap coordinator Female Yes 04/06/25 11:28 HX of Motion Sickness Yes 04/06/25 11:28 HX of N/V After Surgery No 04/06/25 11:28 Non-Smoker Yes 04/06/25 11:28 Duration of Surgery greater Yes 04/06/25 11:28 than 60 minutes Number of Risk Factors 4 04/06/25 11:28 PONV Score Severe Risk 04/06/25 11:28 Height & Weight Height & Weight: Anesthesia: Height & Weight Height 5 ft 6 in 04/14/25 09:38 Weight: 131.995 kg 04/14/25 09:38 Body Mass Index (BMI) 47.0 04/14/25 09:38 Respiratory Assessment Respiratory Assessment - ppap coordinator: Respiratory Tract Infection Hx - ppap coordinator Hx Respiratory Tract Infection No 04/06/25 11:28 STOP Sleep Apnea STOP Sleep Apnea - ppap coordinator: STOP Sleep Apnea - ppap coordinator Hx Hypertension No 04/06/25 11:28 Hx Sleep Apnea No 04/06/25 11:28 CPAP BIPAP Do you snore loudly (louder No 04/06/25 11:28 than talking or can be heard Do you often feel tired/ Yes 04/06/25 11:28 fatigued/ sleepy during daytime? Has anyone observed you stop No 04/06/25 11:28 breathing during sleep? STOP Results Negative 04/06/25 11:28 QUESTION #5 FULL TEXT : Do you snore loudly (louder than talking or can be heard through closed doors)? 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 Specify any problems Hx of Preganancy in last 3 No 04/06/25 11:28 Months Nurse Filling Out Transfusion DSCHRIBER 04/06/25 11:28 & Questions: Date: 04/06/25 04/06/25 11:28 Time: 11:30 04/06/25 11:28 Patient unable to answer at this time (ie. confused, unrespo /Reproduction History /Reproductive History - ppap coordinator: /Reproductive Hx- ppap coordinator Hx Now No 04/06/25 11:28 Gestational Age (in weeks): EDC: Hx Hx Para Hx Section SAB No 04/06/25 11:28 Active Medications Active Medications: Current Medications Generic Name Dose Route Start Last Admin Trade Name Freq PRN Reason Stop Dose Admin Cefazolin Sodium 2 gm/ Sodium 110 mls @ 200 mls/hr 04/14/25 11:15 04/14/25 10:09 Chloride IV 04/14/25 11:47 Not Given INTRAOP ONE Lactated Ringer's 1,000 mls @ 15 mls/hr 04/14/25 09:30 04/14/25 09:44 IV 15 mls/hr .Q48H ANSELMO Administration PFSH Medical History (Updated 04/06/25 @ 11:38 by Margarette Lynne) Wears glasses Gastric reflux Asthma Non-smoker History of pain when walking History of edema History of echocardiogram Cancer Bilateral carpal tunnel syndrome Cough Pleural effusion Candidiasis of breast Dysuria Oral candidiasis Diarrhea due to drug Encounter for chemotherapy management 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 carcinomatosis Ovarian cancer Acute superficial venous thrombosis of lower extremity Anxiety and depression Carcinoma of ovary, stage 3 Home Medications ?Medication ?Instructions ?Recorded ?Last Taken ?Type albuterol sulfate 90 mcg/actuation 1 inh inhalation Q4 H PRN shortness 05/14/24 Unknown History aerosol inhaler of breath or wheezing loperamide 2 mg capsule 2 mg PO Q6H PRN diarrhea Unknown History omeprazole 20 mg tablet,delayed 20 mg PO QDAY 06/04/24 04/14/25 History release lidocaine-prilocaine 2.5 %-2.5 % 1 applic topical ONCE PRN PORT 06/17/24 Unknown Rx topical cream ACCESS 30 days #30 grams ondansetron 8 mg disintegrating 8 mg PO Q8H PRN nausea and 08/12/24 04/14/25 Rx tablet vomiting #30 tabs clonazepam 0.5 mg tablet 0.5 mg PO DAILY PRN anxiety 12/09/24 Unknown History fluoxetine 20 mg tablet 40 mg PO DAILY 12/09/2403/17 History calcium carbonate 200 mg calcium 2 tab PO QHS 04/06/25 Unknown History (500 mg)-vitamin D3 400 unit tablet letrozole 2.5 mg tablet (Femara) 2.5 mg PO QHS 5 04/13/25 History loratadine 10 mg tablet (Claritin) 10 mg PO DAILY 03/17 11/10 Unknown History Allergy/AdvReac Type Severity Reaction Status Date / Time paclitaxel (From Taxol) Allergy Severe Anaphylaxis Verified 04/14/25 09:37 Family History Aunt Breast cancer Cancer Father's side Aunt Breast cancer Great aunt Surgical History (Updated 04/06/25 @ 11:38 by Margarette Lynne) Hx of total hysterectomy History of appendectomy History of colposcopy H/O LEEP Social History Smoking Status: Never smoker alcohol intake: current alcohol intake frequency: holidays/special occasions only substance use type: does not use Review of Systems (Anesthesia) ROS Narrative System reviewed and no additional complaints, except as documented. 04/14/25 1020 <Electronically signed by Nikolay Santiago MD> Date _ Nikolay Santiago MD Cosigner Signature: Date CC: ~ Signed [facility] Work Phone: [phone]) 730-496707-30-2025 Consult note [facility] Medical Records Department [address] [place] [address] [place] [address] Anesthesia Postop Eval I 04/14/25 1159 MR#: [id number] Acct: [id number] Name: JESSICA ALARCON Rep #:[id number] : 1980 44 From: Gideon WALDROP PCP: Adan Garcia, PEN TESTER-C Status:REG S DC Y Race: C Location: [place] [address] Anesthesia: Postop Eval I Current Vital Signs Temperature: 97.9 F Pulse Rate: 107 Blood Pressure: 152/75 Respiratory Rate: 16 Pulse Ox: 98 Assessment Airway patent: Yes Spontaneous unlabored respirations: Yes nausea: No Vomiting: No Anesthesia Complication: No Fluid Hydration Crystalloid volume administer (ml): 600 Total IV fluid infused: 600 Progress Note Anesthesia document: Postop Eval 1 completed: Yes 04/14/25 1200 CHEMICAL ENGINEERING TEACHER> Date _ Gideon Marcano CHEMICAL ENGINEERING TEACHER Cosigner Signature: Date CC: ~ Signed [facility]07-30-2025 Discharge summary [facility] Medical Records Department [address] [place] [address] Instructions for Home/Discharge Instructions 04/14/25 1134 MR#: [id number] Acct: [id number] Name: JESSICA ALARCON Rep #:[id number] : 1980 44 From: Pradeep Chandler MD PCP: Adan Garcia NP-C Status:REG S DC Discharge Instructions Diet Discharge Diet: No restrictions Activity Discharge Activity: Return to Normal Activity Ice area for (Minutes): 10 Lifting Restrictions: no pushing pulling or lifting Keep extremity elevated above heart level: Operative Extremity Additional Activity Instructions:: wear wrist braces for 2 weeks post op Dressing / Incision Call your doctor if your incision/area has: Continuous Slow Oozing, Sudden Increased Bleeding, Increased Pain/ Swelling, Increased Redness, Foul Smelling Discharge and Swelling at the incision site Call your doctor if you observe: Fever of 101 or Higher, Coldness, Increased Pain and Numbness or Tingling Change Dressing in: leave in place till F/U Cleanse incision/area with: Do not get Incision Wet Follow Up Care Please Follow Up With: Pradeep Chandler MD When: 2 days or within 2 weeks Test Results: Test results from this visit will be discussed in further detail at your follow- up appointment, if applicable. Discharge Plan Admission Attending Provider: Pradeep Chandler Primary Care Provider: Adan Garcia NP Instructions Patient Instructions: Carpal Tunnel Release Surgery Print Language: Ukrainian Discharge Orders/Prescriptions Prescriptions: No Action albuterol sulfate 90 mcg/actuation HFA aerosol inhaler 1 inh inhalation Q4H PRN (Reason: shortness of breath or wheezing) fluoxetine 20 mg tablet 40 mg PO DAILY clonazepam 0.5 mg tablet 0.5 mg PO DAILY PRN (Reason: anxiety) loperamide 2 mg capsule 2 mg PO Q6H PRN (Reason: diarrhea) omeprazole 20 mg tablet,delayed release (DR/EC) 20 mg PO QDAY lidocaine-prilocaine 2.5-2.5 % cream 1 applic topical ONCE PRN (Reason: PORT ACCESS) 30 Days Qty: 30 2RF loratadine [Claritin] 10 mg tablet 10 mg PO DAILY calcium carbonate-vitamin D3 200 mg (500 mg) -400 unit tablet 2 tab PO QHS letrozole [Femara] 2.5 mg tablet 2.5 mg PO QHS ondansetron 8 mg tablet,disintegrating 8 mg PO Q8H PRN (Reason: nausea and vomiting) Qty: 30 2RF Referrals / Follow Up: Pradeep Chandler MD [Med Staff - Active Staff] - Adan Garcia NP, PEN TESTER-C [Primary Care Provider] - Disposition Disposition (needs filled in before D/C Order can be placed): Home, Self Care 04/14/25 1135Scmarsha Chandler MD CC: PEN TESTER-C Adan Garcia ~ Signed [facility]07-30-2025 Procedure note [facility] Medical Records Department [address] [place] [address] Operative Report 04/14/25 1131 MR#: [id number] Acct: [id number] Name: JESSICA ALARCON Rep #:[id number] : 1980 44 From: Pradeep Chandler MD PCP: DIANNE Daniel Status:REG S DC Location: [place] [address] Problems Associated Problem List Diagnoses (1) Bilateral carpal tunnel syndrome: Procedures Musculoskeletal 20xxx-29xxx: Other Procedure See Report Operative Report (Standard) Operative Information Date of Procedure: 04/14/25 Pre-Operative Diagnosis: bilateral CTS Post-Operative Diagnosis: same Surgery/Procedure Performed: bilateral ECTRs front office manager: Yes Radon Inspector: angelic Tasks completed by assistant site manager: Retracting Additional assistant banquet manager?: No Type of Anesthesia: General and Local RN Documented Start/Stop Times: Operation Date: 04/14/25 10:45 Case Time Into Pre-Op 04/14/25 09:24 Out of Pre-Op 04/14/25 10:41 Anesthesia Start 04/14/25 10:46 Into Room 04/14/25 10:46 Procedure Start 04/14/25 11:03 Procedure Start Time: 11:03 Procedure Stop Time: 11:32 Select all DRAINS/GRAFTS/IMPLANTS that apply: None Estimated Blood Loss: 10 Specimen collected: No Description of surgery: Patient brought to the operating room theater. Placed upon on the table. 3g ivancef before the start of the case. GA induced by the anesthetic team. Patient placed supine on the table all bony prominences padded. SCDs on the legs. Hand table used bilateral. Tourniquet applied properly padded to theupper extremites. Upper extremity prepped and draped in the usual sterile fashion with chlorhexidine-based prep solution allowing over 3 minutes drying time priorto draping. Preoperative timeout performed to confirm the site patient and the surgery. Did the same procedure both sides. Began by elevating the limb and inflated the tourniquet to 250 mmHg. I used the Arthex center line endoscopic carpal tunnel kit technique. 2cc 0.25% bupivicaine for local anesthesia. I made a transverse 2 cm incision in line withthe? transverse wrist crease.? This wasin line with the fourth digit.? I carried the dissection down through skin and subcutaneous tissue achieved meticulous hemostasis. Just ulnar to palmaris tendon.? I incised the antebrachial fascia.? I passed sequential dilators into the carpal tunnel along the radial border of the Guyon's canal aiming for the fourth digit with the handin extension.? I used a synovial elevator to identify the transverse fibers of the transverse carpal tunnel ligament.? Passed the scope into the carpal tunnel.Once I had identified the full proximal and distal extent of the ligament I fully released the ligamentunder direct visualization by deploying the blade and slowly withdrawing the scope made sequential passes until I no longer felt tension as well as the entire extent of the ligament was released under direct visualization.? Sounded the tunnel with thakkar tenotomy scissors, complete release, no bands. Arthroscope light was more visible through the skin. More room for the large dilator. Release the forearm fascia also. Pictures taken and saved. Wounds thoroughly irrigated.? Tourniquet let downprior to end of the case and meticulous hemostasis achieved.? Thorough irrigation.? ? Incisions closed with dermabond and 3-0 monocryl. ?Then adaptic 4x4 gauze and cloth tape. Patient woken up,? transferred off the operating room table and taken to postanesthetic care unit in stable condition. All sponge needle instrument counts were correct no complications.?Plan for the patient to be discharged homeaccording to day surgery criteria when they are comfortable. Follow-up in the office in 2 days time. Gentle ROM hand and elbow no heavy lifting. Recommend wrist brace 2 weeks. cpt 73861 x 2 Surgical Findings: as above Complications Complications: No Admit VTE Documentation VTE Present on Admission: No VTE Mechan Device Prophylaxis: SCD's VTE Pharm Prophylaxis ordered?: No Reason prophylaxis not ordered: Treatment Not Indicated 04/14/25 1133 Cosigner Signature (if applicable): CC: PEN TESTERBerhaneC Adan Garcia; Dr. Pradeep Chandler MD~ Signed [facility]07-30-2025 History and physical note [facility] Medical Records Department [address] [place] [address] History & Physical Exam 04/14/25 1028 MR#: [id number] Acct: [id number] Name: JESSICA ALARCON Rep #:[id number] : 1980 44 From: Pradeep Chandler MD PCP: DIANNE Daniel Status:REG S DC Location: [place] [address] HPI - General HPI Narrative JESSICA ALARCON, is a 44 F who presents for bilateral ECTR. no change to h and p. rab, post op instructions given. wrists marked. ok to proceed. MR#: [id number] Acct: [id number] Name: JESSICA ALARCON Rep #: [id number] : 1980 Provider: Dr. Pradeep Chandler MD Age/Sex: 44/F Location: [facility] [email or web address] Status: Signed Intake Vital Signs 02/17/2516:05 Height 5 ft 6 in Intake Visit Reasons: bilateral wrist Allergies paclitaxel (From Taxol) Allergy (Severe, Verified 03/29/25 10:59) Anaphylaxis Medications ?Medication ?Instructions ?Recorded ?Confirmed ?Type MAGIC MOUTH WASH (BMX) 180 mL ml PO #180 mL 05/14/24 03/29/25 History suspension albuterol sulfate 90 mcg/actuation 1 inh inhalation ONCE 05/14/24 03/29/25 Hi story aerosol inhaler loratadine 10 mg tablet (Claritin) 10 mg PO DAILY 05/14/24 03/29/25 History dicyclomine 20 mg tablet 20 mg PO .QID PRN 06/04/24 03/29/25 Hist ory loperamide 2 mg capsule 2 mg PO Q6H PRN 06/04/24 03/29/25 Histor y omeprazole 20 mg tablet,delayed 20 mg PO QDAY 06/04/24 03/29/25 History release prochlorperazine maleate 10 mg 10 mg PO Q6H PRN nausea and 06/04/24 Rx tablet vomiting #30 tabs dexamethasone 4 mg tablet 8 mg (2 x 4 mg) PO .COMPLEX #12 06/17/24 03/29/25 Rx tabs lidocaine-prilocaine 2.5 %-2.5 % 1 applic topical ONCE PRN PORT 06/17/24 03/29/25 Rx topical cream ACCESS 30 days #30 grams nystatin 100,000 unit/mL oral 5 ml PO Q6H PRN #473 mL 07/15/24 5 Rx suspension nystatin 100,000 unit/gram topical 1 applic topical BID #30 grams 07/21/24 03/29/25 Rx cream ondansetron 8 mg disintegrating 8 mg PO Q8H PRN nausea and 08/12/2403/16 Rx tablet vomiting #30 tabs letrozole 2.5 mg tablet (Femara) 2.5 mg PO QDAY 30 days #30 tabs 09/02/24 03/29/25 Rx clonazepam 0.5 mg tablet 0.5 mg PO DAILY PRN 12/09/24 03/29/25 Hi story fluoxetine 20 mg tablet 40 mg PO DAILY 12/09/24 03/29/25 History PFSH Medical History Bilateral carpal tunnel syndrome Swelling of both lower extremities Cough Pleural effusion Candidiasis of breast UTI (urinary tract infection) Dysuria Oral candidiasis Diarrhea due to drug Encounter for chemotherapy management 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 carcinomatosis Ovarian cancer Acute superficial venous thrombosis of lower extremity Anxiety and depression Carcinoma of ovary, stage 3 Surgical History History of appendectomy History of colposcopy H/O LEEP History of hysterectomy Family History Aunt Breast cancer Cancer Father's sideAunt Breast cancer Great aunt Social History Smoking Status: Never smoker alcohol intake: current alcohol intake frequency: holidays/special occasions only substance use type: does not use HPI bilateral wrist Details: This documentation accurately reflects the service provided and the decisions made by me, Dr. Anjel MD 03/29/25 1057. Part of today?s visit was documented by [ ], acting as scribe. JESSICA ALARCON is a 44 year old F here today for FU bilat NCS for CTS.. Had a cortisone injection for her right carpal tunnel syndrome that was about 6 weeks ago it did help but unfortunately now it has worn off and the patient is desiring to go ahead with a more definitive surgical solution. Supplemental Info [facility] Pulmonary Services/Neurology [address] [place] [address] MR#: [id number] Acct: [id number] Name: JESSICA ALARCON Rep #: [id number] : 1980 44 From: Te Zeng MD Referring Dr: Pradeep Chandler MD Status: REG CLI Location: PSN Date: 02/17/25 Sex: F C NCS and/or EMG Patient Report Ordering Doctor: Pradeep Chandler DATE OF SERVICE: 02/17/25 Jessica presents with complaints of numbness and tingling in the first 4 digits of each hand. Symptoms been present for several years. Electrodiagnostic Findings: Median motor nerve demonstrates normal distal latency, amplitude and conduction velocity bilaterally. Normal ulnar motor response bilaterally. Normal median and ulnar F?waves. Prolonged median sensory latency at the wrist and palm bilaterally. Normal ulnar and radial sensory responses. Needle EMG testing was performed in the upper limbs. All muscles tested showed no evidence of denervation with normal motor unit action potentials. Electrodiagnostic impression: This is an abnormal study in the upper limbs 1. Electrodiagnostic findings suggestive of bilateral median mononeuropathy. This consistent with a mild bilateral carpal tunnel syndrome. Multi Select Codes Neurology Neurology Interp Codes: 15125-76 Musc test done w/n test comp (interp) (2) and 62918-38 Nrv cndj test 13/> studies (interp) Coding Level of Care Code Off vis,est,level 4 Diagnoses Bilateral carpal tunnel syndrome G56.03 Assessment and Plan Assessment and Plan (1) Bilateral carpal tunnel syndrome: Status: Acute Plan: 44-year-old female with bilateral carpal tunnel syndrome. Electrodiagnostic findings suggestive of bilateral median mononeuropathy. This consistent with a mild bilateral carpal tunnel syndrome. Discussed the pros and cons risks and benefits of continued nonoperative management versus surgical release. This can be done open or endoscopically. There are pros and cons to each method. Generally slightly quicker recovery with less pain with endoscopic although possibly higher risk of incomplete release. We can do one-sided a time or both at once, again there are pros and cons to each. That being said the patient wants to go ahead with endoscopic carpal tunnel release. pros and cons risks and benefits were discussed with the patient including but not limited to infection, pain, stiffness, bleeding, damage to surrounding structures, neurovascular injury, recurrence or retear, failure or wear of hardware or fixation, instability, fracture, deepvein thrombosis and pulmonary embolism, anesthetic risks, , patient dissatisfaction, need for further surgery and other risks. Patient understood and wished to proceed with surgery,and signed the informed consent documentation. Carpal Tunnel Syndrome (CTS) occurs when the median nerve, which runs through the wrist, becomes compressed. Treatment options vary based on the severity of the condition: Non-Surgical Treatments: Wrist Splinting: Wearing a splint at night to keep the wrist in a neutral position. Activity Modification: Avoiding repetitive wrist movements or adjusting work habits. Physical Therapy: Exercises to improve wrist and hand function. Medications: Anti-inflammatory drugs (NSAIDs) or corticosteroid injections to reduce swelling and pain. Surgical Treatment: Carpal Tunnel Release Surgery: A procedure where the ligament pressing on the median nerve is cut to relieve pressure. This is considered when non-surgical treatments are ineffective. Options are min-open or endoscopic. Ortho Exam General General: Yes no acute distress Neurologic: Yes alert and Yes oriented x3 Psychologic: Yes reasonable and appropriate Right Wrist/Hand Skin/Wound: Yes CDI, No Swelling, No Ecchymosis, Yes nail intact and Yes capillary refill normal Left Wrist/Hand Skin/Wound: Yes CDI, No Swelling and No Ecchymosis [facility] Medical History (Updated 04/06/25 @ 11:38 by Margarette Lynne) Wears glasses Gastric reflux Asthma Non-smoker History of pain when walking History of edema History of echocardiogram Cancer Bilateral carpal tunnel syndrome Cough Pleural effusion Candidiasis of breast Dysuria Oral candidiasis Diarrhea due to drug Encounter for chemotherapy management 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 carcinomatosis Ovarian cancer Acute superficial venous thrombosis of lower extremity Anxiety and depression Carcinoma of ovary, stage 3 Home Medications ?Medication ?Instructions ?Recorded ?Last Taken ?Type albuterol sulfate 90 mcg/actuation 1 inh inhalation Q4 H PRN shortness 05/14/24 Unknown History aerosol inhaler of breath or wheezing loperamide 2 mg capsule 2 mg PO Q6H PRN diarrhea Unknown History omeprazole 20 mg tablet,delayed 20 mg PO QDAY 06/04/24 04/14/25 History release lidocaine-prilocaine 2.5 %-2.5 % 1 applic topical ONCE PRN PORT 06/17/24 Unknown Rx topical cream ACCESS 30 days #30 grams ondansetron 8 mg disintegrating 8 mg PO Q8H PRN nausea and 08/12/24 04/14/25 Rx tablet vomiting #30 tabs clonazepam 0.5 mg tablet 0.5 mg PO DAILY PRN anxiety 12/09/24 Unknown History fluoxetine 20 mg tablet 40 mg PO DAILY 12/09/2403/17 History calcium carbonate 200 mg calcium 2 tab PO QHS 04/06/25 Unknown History (500 mg)-vitamin D3 400 unit tablet letrozole 2.5 mg tablet (Femara) 2.5 mg PO QHS 5 04/13/25 History loratadine 10 mg tablet (Claritin) 10 mg PO DAILY 03/17 11/10 Unknown History Allergy/AdvReac Type Severity Reaction Status Date / Time paclitaxel (From Taxol) Allergy Severe Anaphylaxis Verified 04/14/25 09:37 Family History Aunt Breast cancer Cancer Father's side Aunt Breast cancer Great aunt Surgical History (Updated 04/06/25 @ 11:38 by Margarette Lynne) Hx of total hysterectomy History of appendectomy History of colposcopy H/O LEEP Social History Smoking Status: Never smoker alcohol intake: current alcohol intake frequency: holidays/special occasions only substance use type: does not use Vital Signs Vital Signs Vital Signs: 04/14/25 09:38 04/14/25 09:38 04/14/25 10:20 Temperature 97.6 F L 97.6 F L Temperature Source Temporal Pulse Rate 94 94 Respiratory Rate 16 16 Respiratory Pattern Normal Blood Pressure 133/92 H 133/92 H Blood Pressure Mean 105 Blood Pressure Source Monitor Blood Pressure Position Semi-Fowlers Blood Pressure Location Left Arm Pulse Ox 97 97 Oxygen Delivery Method Room Air Room Air Weight Weight: 291 lb Body Mass Index (BMI) 47.0 04/14/25 1034 Cosigner Signature (if applicable): CC: PEN TESTER-C Adan Garcia; Dr. Pradeep Chandler MD~ Signed [facility]07-30-2025 [facility] Medical Records Department [address] [place] [address] History Physical Exam 04/14/25 1028 MR#: [id number] Acct: [id number] Name: JESSICA ALARCON Rep #: [id number] : 1980 44 From: Pradeep Chandler MD PCP: Adan Garcia PEN TESTER-C Status:REG [facility] Location: [place] [address] HPI - General HPI Narrative JESSICA ALARCON, is a 44 F who presents for bilateral ECTR. no change to h and p. rab, post op instructions given. wrists marked. ok to proceed. MR#: [id number] Acct: [id number] Name: JESSICA ALARCON Rep #: [id number] : 1980 Provider: Dr. Pradeep Chandler MD Age/Sex: 44/F Location[place] [facility] Status: Signed Intake Vital Signs 02/17/2516:05 Height 5 ft 6 in Intake Visit Reasons: bilateral wrist Allergies paclitaxel (From Taxol) Allergy (Severe, Verified 03/29/25 10:59) Anaphylaxis Medications ???Medication ???Instructions ???Recorded ???Confirmed ???Type MAGIC MOUTH WASH (BMX) 180 mL ml PO #180 mL 05/14/24 03/29/25 History suspension albuterol sulfate 90 mcg/actuation 1 inh inhalation ONCE 05/14/24 03/29/25 History aerosol inhaler loratadine 10 mg tablet (Claritin) 10 mg PO DAILY 05/14/24 03/29/25 History dicyclomine 20 mg tablet 20 mg PO .QID PRN 06/04/24 03/29/25 History loperamide 2 mg capsule 2 mg PO Q6H PRN 06/04/24 03/29/25 History omeprazole 20 mg tablet,delayed 20 mg PO QDAY 06/04/24 03/29/25 History release prochlorperazine maleate 10 mg 10 mg PO Q6H PRN nausea and 06/04/24 03/29/25 Rx tablet vomiting #30 tabs dexamethasone 4 mg tablet 8 mg (2 x 4 mg) PO .COMPLEX #12 06/17/24 03/29/25 Rx tabs lidocaine-prilocaine 2.5 %-2.5 % 1 applic topical ONCE PRN PORT 06/17/24 03/29/25 R x topical cream ACCESS 30 days #30 grams nystatin 100,000 unit/mL oral 5 ml PO Q6H PRN #473 mL 07/15/24 03/29/25 Rx suspension nystatin 100,000 unit/gram topical 1 applic topical BID #30 grams 07/21/24 03/29/25 R x cream ondansetron 8 mg disintegrating 8 mg PO Q8H PRN nausea and 08/12/24 03/29/25 Rx tablet vomiting #30 tabs letrozole 2.5 mg tablet (Femara) 2.5 mg PO QDAY 30 days #30 tabs 09/02/24 03/29/25 Rx clonazepam 0.5 mg tablet 0.5 mg PO DAILY PRN 12/09/24 03/29/25 History fluoxetine 20 mg tablet 40 mg PO DAILY 12/09/24 03/29/25 History PFSH Medical History Bilateral carpal tunnel syndrome Swelling of both lower extremities Cough Pleural effusion Candidiasis of breast UTI (urinary tract infection) Dysuria Oral candidiasis Diarrhea due to drug Encounter for chemotherapy management 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 carcinomatosis Ovarian cancer Acute superficial venous thrombosis of lower extremity Anxiety and depression Carcinoma of ovary, stage 3 Surgical History History of appendectomy History of colposcopy H/O LEEP History of hysterectomy Family History Aunt Breast cancer Cancer Father's sideAunt Breast cancer Great aunt Social History Smoking Status: Never smoker alcohol intake: current alcohol intake frequency: holidays/special occasions only substance use type: does not use HPI bilateral wrist Details: This documentation accurately reflects the service provided and the decisions made by me, Dr. Pradeep Chandler MD 03/29/25 1057. Part of today???s visit was documented by [ ], acting as scribe. JESSICA ALARCON is a 44 year old F here today for FU bilat NCS for CTS.. Had a cortisone injection for her right carpal tunnel syndrome that was about 6 weeks ago it did help but unfortunately now it has worn off and the patient is desiring to go ahead with a more definitive surgical solution. Supplemental Info [facility] Pulmonary Services/Neurology [address] [place] [address] MR#: [id number] Acct: [id number] Name: JESSICA ALARCON Rep #: [id number] : 1980 44 From: Te Zeng MD Referring Dr: Pradeep Chandler MD Status: REG CLI Location: PSN Date: 02/17/25 Sex: F C NCS and/or EMG Patient Report Ordering Doctor: Pradeep Chandler DATE OF SERVICE: 02/17/25 Jessica presents with complaints of numbness and tingling in the first 4 digits of each hand. Symptoms been present for several years. Electrodiagnostic Findings: Median motor nerve demonstrates normal distal latency, amplitude (more content not included)...[facility] 04-14-2025 Consult note [facility] Medical Records Department [address] [place] [address] Pre-Anesthesia Evaluation 04/14/25 1014 MR#: [id number] Acct: [id number] Name: JESSICA ALARCON Rep #:[id number] : 1980 44 From: Nikolay Wilkinson PCP: LAKSHMI DanielC Status:REG S DC Y Race: C Location: [facility]-1 ASA Classification* ASA Classification ASA Classification: 3 Assessment & Plan Anesthesia* Anesthesia Assessment Anesthesia Assessment: Discussed sedation and/or anesthesia options, risks, benefits, and alternatives with patient/parents/legal guardian/POA. Questions invited. The patient/parents/legal guardian/POA seems to understand and agrees to proceedwith anesthesia plan. Reviewed the physical assessment, medical history, allergy history and patient home medications list prior to surgery/procedure/anesthetic and documented any changes. Performed airway and anesthesia risk assessments. Anesthesia Type Anesthesia Type: General (Discussed choice of MAC vs IV GA/LMA with patient. Sheprefers the IV GA, had a bad experience under MAC with her Port placement for Ovarian CA) History Source History Obtained from:: Patient and Chart Anesthesia Focused Assessment* Temperature: 97.6 F Pulse Rate: 94 Blood Pressure: 133/92 Respiratory Rate: 16 Pulse Ox: 97 Oxygen Delivery Method: Room Air Airway Assessment Mouth opens: >3 cm Mallampati Score: II Teeth Condition: Intact Neck Range of motion (ROM): Full ROM Labs Anesthesia Preop lab: CBC WBC 9.7 K/mm3 (4.4-11.0) 02/11/25 09:05 02/11/25 RBC 4.19 M/mm3 (4.2-5.4) L 02/11/25 09:05 02/11/25 Hgb 12.4 g/dL (12.0-15.0) 02/11/25 09:05 02/11/25 Hct 37.2 % (37-47) 02/11/25 09:05 02/11/25 Plt Count 185 K/mm3 (150-450) 02/11/25 09:05 02/11/25 CHEMISTRY Potassium 4.2 mmol/L (3.3-5.1) 02/11/25 09:05 02/11/25 Sodium 138 mmol/L (133-145) 02/11/25 09:05 02/11/25 Magnesium 2.1 mg/dL (1.5-2.2) 12/02/24 07:42 12/02/24 Phosphorus 3.5 mg/dL (2.7-4.5) 12/02/24 07:42 12/02/24 BUN 19 mg/dL (4-19) 02/11/25 09:05 02/11/25 Creatinine 0.64 mg/dL (0.70-1.20) L 02/11/25 09:05 Glucose 91 mg/dL (70-99) 02/11/25 09:05 02/11/25 COAG PT 13.9 SECONDS (11.7-14.9) 08/25/24 15:50 HCG, Quant 290564 mIU/mL (<9 non-preg) H 09/16/13 17:55 0 09/16/13 Pre-Assessment Diagnosis/Proposed Procedure Planned Operative Procedure(s): BILAT ENDOSCOPIC CARPAL TUNNEL RELEASE Anesthesia History Anesthesia History - ppap coordinator: Anesthesia History - ppap coordinator Hx Hospitalization Yes: 06/2024 PNEUMONIA 04/06/25 11:28 2023 POST CHEMO Any Problems With Anesthesia No 04/06/25 11:28 Cholinesterase deficiency No 04/06/25 11:28 You/Your Family Experience No 04/06/25 11:28 fever (hyperthermia) with Relationship Recent Exposure to Contagious No 04/14/25 09:38 Disease Does patient have nerve No 04/06/25 11:28 stimulator Patient instructed to have device shut off --Does patient have Pacemaker No 04/14/25 09:38 or ICD? When Was Last Pacemaker Check QUESTION #4 FULL TEXT: You/Your Family Experience fever (hyperthermia) with Anesthesia Last Oral Intake Last Oral intake: Last Oral Intake NPO since 08:00 04/14/25 09:38 Meds taken in AM with sips of water? Meds patient instructed to take am of surgery PONV PONV - ppap coordinator: PONV - ppap coordinator Female Yes 04/06/25 11:28 HX of Motion Sickness Yes 04/06/25 11:28 HX of N/V After Surgery No 04/06/25 11:28 Non-Smoker Yes 04/06/25 11:28 Duration of Surgery greater Yes 04/06/25 11:28 than 60 minutes Number of Risk Factors 4 04/06/25 11:28 PONV Score Severe Risk 04/06/25 11:28 Height & Weight Height & Weight: Anesthesia: Height & Weight Height 5 ft 6 in 04/14/25 09:38 Weight: 131.995 kg 04/14/25 09:38 Body Mass Index (BMI) 47.0 04/14/25 09:38 Respiratory Assessment Respiratory Assessment - ppap coordinator: Respiratory Tract Infection Hx - ppap coordinator Hx Respiratory Tract Infection No 04/06/25 11:28 STOP Sleep Apnea STOP Sleep Apnea - ppap coordinator: STOP Sleep Apnea - ppap coordinator Hx Hypertension No 04/06/25 11:28 Hx Sleep Apnea No 04/06/25 11:28 CPAP BIPAP Do you snore loudly (louder No 04/06/25 11:28 than talking or can be heard Do you often feel tired/ Yes 04/06/25 11:28 fatigued/ sleepy during daytime? Has anyone observed you stop No 04/06/25 11:28 breathing during sleep? STOP Results Negative 04/06/25 11:28 QUESTION #5 FULL TEXT : Do you snore loudly (louder than talking or can be heard through closeddoors)? 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 Specify any problems Hx of Preganancy in last 3 No 04/06/25 11:28 Months Nurse Filling Out Transfusion DSCHRIBER 04/06/25 11:28 & Questions: Date: 04/06/25 04/06/25 11:28 Time: 11:30 04/06/25 11:28 Patient unable to answer at this time (ie. confused, unrespo /Reproduction History /Reproductive History - ppap coordinator: /Reproductive Hx- ppap coordinator Hx Now No 04/06/25 11:28 Gestational Age (in weeks): EDC: Hx Hx Para Hx Section SAB No 04/06/25 11:28 Active Medications Active Medications: Current Medications Generic Name Dose Route Start Last Admin Trade Name Freq PRN Reason Stop Dose Admin Cefazolin Sodium 2 gm/ Sodium 110 mls @ 200 mls/hr 04/14/25 11:15 04/14/25 10:09 Chloride IV 04/14/25 11:47 Not Given INTRAOP ONE Lactated Ringer's 1,000 mls @ 15 mls/hr 04/14/25 09:30 04/14/25 09:44 IV 15 mls/hr .Q48H ANSELMO Administration PFSH Medical History (Updated 04/06/25 @ 11:38 by Margarette Lynne) Wears glasses Gastric reflux Asthma Non-smoker History of pain when walking History of edema History of echocardiogram Cancer Bilateral carpal tunnel syndrome Cough Pleural effusion Candidiasis of breast Dysuria Oral candidiasis Diarrhea due to drug Encounter for chemotherapy management 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 carcinomatosis Ovarian cancer Acute superficial venous thrombosis of lower extremity Anxiety and depression Carcinoma of ovary, stage 3 Home Medications ?Medication ?Instructions ?Recorded ?Last Taken ?Type albuterol sulfate 90 mcg/actuation 1 inh inhalation Q4 H PRN shortness 05/14/24 Unknown History aerosol inhaler of breath or wheezing loperamide 2 mg capsule 2 mg PO Q6H PRN diarrhea Unknown History omeprazole 20 mg tablet,delayed 20 mg PO QDAY 06/04/24 04/14/25 History release lidocaine-prilocaine 2.5 %-2.5 % 1 applic topical ONCE PRN PORT 06/17/24 Unknown Rx topical cream ACCESS 30 days #30 grams ondansetron 8 mg disintegrating 8 mg PO Q8H PRN nausea and 08/12/24 04/14/25 Rx tablet vomiting #30 tabs clonazepam 0.5 mg tablet 0.5 mg PO DAILY PRN anxiety 12/09/24 Unknown History fluoxetine 20 mg tablet 40 mg PO DAILY 12/09/2403/17 History calcium carbonate 200 mg calcium 2 tab PO QHS 04/06/25 Unknown History (500 mg)-vitamin D3 400 unit tablet letrozole 2.5 mg tablet (Femara) 2.5 mg PO QHS 5 04/13/25 History loratadine 10 mg tablet (Claritin) 10 mg PO DAILY 03/17 11/10 Unknown History Allergy/AdvReac Type Severity Reaction Status Date / Time paclitaxel (From Taxol) Allergy Severe Anaphylaxis Verified 04/14/25 09:37 Family History Aunt Breast cancer Cancer Father's side Aunt Breast cancer Great aunt Surgical History (Updated 04/06/25 @ 11:38 by Margarette Lynne) Hx of total hysterectomy History of appendectomy History of colposcopy H/O LEEP Social History Smoking Status: Never smoker alcohol intake: current alcohol intake frequency: holidays/special occasions only substance use type: does not use Review of Systems (Anesthesia) ROS Narrative System reviewed and no additional complaints, except as documented. 04/14/25 1020 MD> Date _ Nikolay Fayignhaylie Signature: Date CC: ~ Signed [facility]06-04-2025 Procedure note [facility] Pulmonary Services/Neurology [address] [place] [address] MR#: [id number] Acct: [id number] Name: JESSICA ALARCON Rep #:[id number] : 1980 44 From: Te Zeng MD Referring Dr: Pradeep Chandler MD Sta tus: REG CLI Location: [facility] Date: 02/17/25 Sex: F C NCS and/or EMG Patient Report Ordering Doctor: Pradeep Chandler DATE OF SERVICE: 02/17/25 Jessica presents with complaints of numbness and tingling in the first 4 digits of each hand. Symptomsbeen present for several years. Electrodiagnostic Findings: Median motor nerve demonstrates normal distal latency, amplitude and conduction velocity bilaterally. Normal ulnar motor response bilaterally. Normal median and ulnar F?waves. Prolonged median sensory latencyat the wrist and palm bilaterally. Normal ulnar and radial sensory responses. Needle EMG testing was performed in the upper limbs. All muscles tested showed no evidence of denervation with normal motor unit action potentials. Electrodiagnostic impression: This is an abnormal study in the upper limbs 1. Electrodiagnostic findings suggestive of bilateral median mononeuropathy. This consistent with amild bilateral carpal tunnel syndrome. Multi Select Codes Neurology Neurology Interp Codes: 35655-41 Musc test done w/n test comp (interp) (2) and 36042-90 Nrv cndj test 13/> studies (interp) 02/17/25 1234 D> Date _ Te Zeng MD CC: PEN TESTER-C Adan Garcia; Dr. Te Zeng MD; Dr. Pradeep Chandler MD ~ Date Dictated: 02/17/25 1230 Date Transcribed: 02/17/251229 Interior Block Wirer: ROSIE Piedra [facility]06-03-2025 Evaluation note* Diagnosis Onset Date Resolution Status Admit Date Ovarian cancer chronic February 16, 2025 3:52pm Peritoneal carcinomatosis chronic February 16, 2025 3:52pm Bilateral carpal tunnel syndrome acute March 29, 2025 10:55am Bilateral carpal tunnel syndrome acute April 14, 2025 9:14am Bilateral carpal tunnel syndrome acute April 26 2:06pm Aromatase inhibitor-associat ed arthralgia acute May 19, 2 025 1:08pm Hot flashes acute May 1:08pm Stomatitis acute May 19, 2025 1:08pm Weight gain acute May 1:08pm Ovarian cancer chronic May 19, 2025 1:08pm Peritoneal carcinomatosis chronic May 19, 2025 1:08pm Ovarian cancer chronic May 25, 2025 11:01am Peritoneal carcinomatosis chronic May 25, 2025 11:01am Bilateral carpal tunnel syndrome acute May 31, 2025 8:29am [facility] Work Phone: [phone] 393-411106-03-2025 [facility] [address] [place] [address] OFFICE VISIT Date of Service: 02/16/25 1604 MR#: [id number] Acct: [id number] Name: JESSICA ALARCON Rep #: [id number] : 1980 From: Coco correa MD Age/Sex: 44/F Location[place] [facility] Status: Signed HPI Subjective Date of Service 02/16/25 Chief Complaint Ovarian cancer on treatment History of Present Illness 43-year-old female who was diagnosed with Asherman's syndrome for several years and in 2023 experienced increasing abdominal and pelvic pain and a CT scan of the abdomen and pelvis revealed a pelvic mass and an elevated CA125 of 76. February 2024 she had genetic testing ([employer]) that showed no known pathogenic variants. April 03, 2024 she underwent debulking laparoscopic hysterectomy, BSO, omentectomy and staging whichrevealed a low-grade serous carcinoma of the ovaryand metastatic carcinoma was identified involvingboth ovaries, extensive involvement of peritoneal surfaces and omentum. March 2024 next generation sequence, tissue: No potentially actionable pathogenicvariants, tumor mutational burden was low (3.2M/MB) April 22, 2024 received 1 cycle of carboplatin Taxol but developed an anaphylactic reaction to Taxol. May 13, 2024 received the second cycle with carboplatin and Taxotere replace Taxol. This was complicated with excessive GI toxicity requiring hospitalization May 19-2023, she was neutropenic but not febrile. CA-125 05/11/24 446 04/20/24 181 03/25/24 76 June 04, 2024 transferred her care to [facility] and resumed carboplatin and Taxoterewith maximum supportive care. August 05, 2024 left pleural thoracocentesis at [facility] 1100 cc negative for malignancy. August 26, 2024 recurrent left pleural effusion thoracocentesis: Negative for malignancy September 01, 2024 CT chest abdomen and pelvis: FINDINGS: CHEST A right-sided shannan catheter seen with the tip in the superior vena cava. Stable moderate-sized left pleural effusion with left basilar compressive atelectasis and/or infiltrate. Small amount of fluid is seen in the left major fissure. The right lung is clear. There is no demonstrated pleural abnormality. Normal heart and pericardium. Normal mediastinum. Normal hilar regions. Normal unenhanced pulmonary arteries. Normal aorta arch and descending thoracic aorta. Normal osseous structures. ABDOMEN There is decreased attenuation of the liver consistent with steatosis. Small amount of perihepatic fluid. Small amount of fluid in the : Gutters bilaterally. Normal gallbladder and extrahepatic biliary system. Normal spleen. Normal pancreas. Normal bilateral adrenal glands. Normal right kidney. Normal left kidney. Normal visualized stomach. Normal small intestine. There are scattered colonic diverticula consistent with diverticulosis. The appendix is visualized and appears normal. Normal abdominal aorta. Normal inferior vena cava. Normal retroperitoneum. Normal abdominal wall. Normal osseous structures. PELVIS Normal urinary bladder. Pelvic ascites. Status post hysterectomy. There is no pelvic lymphadenopathy or mass lesion. Normal visualized pelvic arteries. IMPRESSION: Ascites. Diffuse fatty infiltration of the liver. Moderate size left pleural effusion with left basilar atelectasis. December 02, 2024 CT chest abdomen and pelvis: IMPRESSION: Interval resolution of the left pleural effusion. Fatty infiltration of the liver. No acute abnormality is seen. 05/14/2025 CT chest abdomen and pelvis: IMPRESSION: Stable examination. Treatment summary and response: * March 2024 laparoscopic hysterectomy, BSO, omentectomy and staging. 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 carcinomatosis Ovarian cancer Acute superficial venous thrombosis of lower extremity Anxiety and depression Carcinoma of ovary, stage 3 Surgical History History of appendectomy History of colposcopy H/O LEEP History of hysterectomy Family History Aunt Breast cancer Cancer Father's side Aunt Breast cancer Great aunt Social History Smoking Status: Never smoker alcohol intake: current alcohol intake frequency: holidays/special occasions only substance use type: does not use ROS Constitutional Constitutional: Reports systems reviewed and no addt'l complaints, except as documented Eyes Eyes: Reports systems reviewed and no addt'l complaints, except as documented ENT HEENT: Reports systems reviewed and no addt'l complaints, except as documented Cardiovascular Cardiovascular: Reports systems reviewed and no addt'l complaints, except as documented Respiratory/Chest Respiratory/Chest: Reports systems reviewed and no addt'l complaints, except as documented Gastrointestinal Gastrointestinal: Reports systems reviewed and no addt'l complaints, except as documented and nausea; Denies dyspepsia, dysphagia or heartburn Genitourinary Genitourinary: Reports systems reviewed and no addt'l complaints, except as documented Musculoskeletal Musculoskeletal: Reports systems reviewed and no addt'l complaints, except as documented Integumentary Integumentary: Reports systems reviewed and no addt'l complaints, except as documented Neurologic Neurologic: Reports systems reviewed and no addt'l complaints, except as documented Psychiatric Psychiatric: Reports systems reviewed and no addt'l complaints, except as documented and anxiety Endocrine Endocrinology: Reports systems reviewed and no addt'l complaints, except as documented, flushing and heat intolerance Hematologic/Lymphatic Hematologic/Lymphatic: Reports systems reviewed and no addt'l complaints, exceptas documented Allergic/Immunologic Allergic/Immunologic: Reports systems reviewed and no addt'l complaints, except as documented Intake Vital Signs 12/09/24 13:38 01/18/25 08:23 02/16/25 16:05 Height 5 ft 6 in 5 ft 6 in 5 ft 6 in Weight: 126.666 kg BMI 45.1 BP 114/79 Blood Pressure Location Rt brachial Position Sitting Respiration 18 Pulse 82 Pulse Source Monitor Temp 97.8 F Temperature Source Temporal Artery Pulse Oximetry (%) 93 Oxygen Delivery Method room air Intake Is patient in pain?: Yes (stomach pain) Allergies paclitaxel (From Taxol) Allergy (Severe, Verified 02/16/25 16:06) Anaphylaxis Medications ?Medication ?Instructions ?Recorded ?Confirmed ?Type MAGIC MOUTH WASH (BMX) 180 mL ml PO #180 mL 05/14/24 0 02/16/25 History suspension albuterol sulfate 90 mcg/actuation 1 inh inhalation ON CE 05/14/24 02/16/25 History aerosol inhaler loratadine 10 mg tablet (Claritin) 10 mg PO DAILY 04/1702/16/25 History dicyclomine 20 mg tablet 20 mg PO .QID PRN 06/04/24 0 02/16/25 History loperamide 2 mg capsule 2 mg PO Q6H PRN 06/04/2412/08 History omeprazole 20 mg tablet,delayed 20 mg PO QDAY 06/04/24 02/16/25 History release prochlorperazine maleate 10 mg 10 mg PO Q6H PRN nausea and 06/04/24 02/16/25 Rx tablet vomiting #30 tabs dexamethasone 4 mg tablet 8 mg (2 x 4 mg) PO .COMPLEX #12 06/17/24 02/16/25 Rx tabs lidocaine-prilocaine 2.5 %-2.5 % 1 applic topical ONCE PRN PORT 06/17/24 02/16/25 Rx topical cream ACCESS 30 days #30 grams nystatin 100,000 unit/mL oral 5 ml PO Q6H PRN #473 mL 07/15/24 02/16/25 Rx suspension nystatin 100,000 unit/gram topical 1 applic topical BI D #30 grams 07/21/24 02/16/25 Rx cream ondansetron 8 mg disintegrating 8 mg PO Q8H PRN nausea and 08/12/24 02/16/25 Rx tablet vomiting #30 tabs letrozole 2.5 mg tablet (Femara) 2.5 mg PO QDAY 30 day s #30 tabs 09/02/24 02/16/25 Rx clonazepam 0.5 mg tablet 0.5 mg PO DAILY PRN 12/09/24 02/16/25 History fluoxetine 20 mg tablet 40 mg PO DAILY 12/09/2412/08 History Laboratory Tests 06/04/24 06/25/24 07/15/24 08:18 08:10 09:18 CA 125 Antigen 369.0 H 360.0 H 375.0 H 08/11/24 09/02/24 10/08/24 09:53 09:34 08:45 CA 125 Antigen 483.0 H 753.0 H 295.0 H 12/02/24 02/11/25 07:42 09:05 CA 125 Antigen 16.2 15.4 Exam Physical Exam Narrative ECOG 0 Const alert, oriented x3 and no apparent distress Nutritional Appearance: obese Coding Level of Care Code Off vis,est,level 3 Exam Problem Focused Diagnoses Malignant neoplasm of both ovaries C56.3 Laterality: bilateral Peritoneal carcinomatosis C78.6 Assessment and Plan Assessment and Plan (1) Ovarian cancer: Status: Chronic Qualifiers: Laterality: bilateral Qualified Code(s): C56.3 - Malignant neoplasm of bilateral ovaries (2) Peritoneal carcinomatosis: Status: Chronic Plan 44-year-old female with 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 Initial care was at [facility], transferred care to [facility] May 2024 and resumed systemic therapy with carboplatin and Taxotere with maximal support. Since then she has tolerated treatment with no grade 3 or 4 toxicities. An indeterminate liver lesion thought to be a hemangioma was noted on initial imaging. Recurrent pleural effusion July - August 2022 status post thoracocentesis x 2 and on both occasions pleural cytology was negative for malignancy. Could be due to Taxotere induced fluid retention keeping in mind that her steroid primedication had to be attenuated due to impaired glucose tolerance. There hasbeen no recurrence of pleural effusion after conclusion of systemic chemotherapy. Imaging by CT scan November and again January 2025 shows no residual measurable diseaseand her CA125 is down to within normal range. Genetic testing showed no known deleterious mutation and next generation sequence on tissue showed no cdl a driver mutations with a low tumor mutational burden. Recommendation: Based on NCCN guidelines and up-to-date review of management of low-grade serous carcinoma of the ovary: 1. She concluded postoperative adjuvant systemic therapy with [place] taxane for 6 cycles and started maintenance hormonal therapy with letrozole August 2024. Continue letrozole maintenance 2. Follow-up with imaging by CT scan and tumor marker in 3 months. 3. Supplement diet with vitamin D and calcium and request bone density study. Patient was seen with her family impression and recommendations discussed. Coco Lima MD Counter Top Maker, [facility] Divisions of Medical Oncology & Hematology Department of Internal Medicine [place] [phone] This note was generated using a voice recognition system software. Although itwas reviewed by the author prior to finalization, it may still contain incorrectwords, spelling, and punctuation that were not noted when reviewing prior to saving. If a clinically significant typo or inaccurately typed phrase is noted, please notify the author. 02/16/25 Jaswinder dai MD> Date _ Coco Vu Signature: Date (if applicable) CC: PEN TESTER-C Adan Garcia ~ [facility]05-29-2025 Radiology Diagnostic study note [facility] Imaging Services [address] [place] [address] CT Chest, Abd, Pel w/Contrast MR#: [id number] Acct: [id number] Name: JESSICA ALARCON Rep #: [id number] : 1980 F 44 From: Todd Lynn MD PCP: LAKSHMI DanielC Status: REG C Study:CT Chest, Abd, Pel w/Contrast Date of E xam: 02/11/25 Exam# [id number] Ordering Dr: Ellen Austin NP PEN TESTER-C PROCEDURE: CT CHEST, ABD, PEL W/CONTRAST 02/11/2025 REASON FOR EXAM: F/U OVARIAN CA Postprandial nausea. TECHNIQUE: Chest, abdomen and pelvis CT with intravenous contrast. Coronal and Sagittal reconstruction series were provided. One or more dose reduction techniques were used (e.g., Automated exposure control, adjustment of the mA and/or kV according to patient size, use of iterative reconstruction technique. PATIENT PREPARATION: Per protocol ORAL CONTRAST TYPE: None. CONTRAST: Isovue-300 VOLUME: 100mL RADIATION DOSE SUMMARY: CTDlvol: 23 mGy DLP: 2364.7 mGycm COMPARISON: Prior study dated December 02, 2024. FINDINGS: CT CHEST: Hardware: A right-sided port a catheter is seen with the tip in the superior vena cava. Lymph nodes: No suspicious lymph nodes are seen. Heart and Vasculature: The heart is nonenlarged. No coronary artery calcification is seen. Lungs and Airways: The lungs are clear. Pleura: No evidence of pleural effusion. Bones: Degenerative changes of the thoracic spine. CT ABDOMEN/PELVIS: Liver: Diffuse fatty infiltration. Gallbladder: Unremarkable Spleen: Normal size. Pancreas: Normal size without evidence of mass surrounding inflammation or ductal dilation. Adrenals: Unremarkable Kidneys: Normal renal sizes. No hydronephrosis. Bladder: Unremarkable Reproductive Organs: Status post hysterectomy and bilateral oophorectomy. Bowel: No bowel obstruction. Appendix: Unremarkable Lymph nodes: Unremarkable. Vasculature: The abdominal aorta and IVC are normal. Peritoneum / Retroperitoneum: Unremarkable Bones: Degenerative changes of the spine. CT/CT Chest, Abd, Pel w/Contrast IMPRESSION: Stable examination. Reading Location: [id number] CC: DIANNE Garcia; DIANNE Dowling ~ Interior Block Wirer: Signed [facility]05-12-2025 Evaluation note* Diagnosis Onset Date Resolution Status Admit Date Bilateral carpal tunnel syndrome acute January 25, 2025 2 :23pm Ovarian cancer chronic February 16, 2025 3:52pm Peritoneal carcinomatosis chronic February 16, 2025 3:52pm Bilateral carpal tunnel syndrome acute March 29, 2025 10:55am Bilateral carpal tunnel syndrome acute April 14, 2025 9:14am Bilateral carpal tunnel syndrome acute April 26 2:06pm Ovarian cancer chronic May 19, 2025 1:08pm Peritoneal carcinomatosis chronic May 19, 2025 1:08pm [facility] Work Phone: 1(845) 620-885605-12-2025 Evaluation note* Diagnosis Onset Date Resolution Status Admit Date Bilateral carpal tunnel syndrome acute January 25, 2025 2 :23pm Ovarian cancer chronic February 16, 2025 3:52pm Peritoneal carcinomatosis chronic February 16, 2025 3:52pm Bilateral carpal tunnel syndrome acute March 29, 2025 10:55am Bilateral carpal tunnel syndrome acute April 14, 2025 9:14am Bilateral carpal tunnel syndrome acute April 26 2:06pm Aromatase inhibitor-associat ed arthralgia acute May 19, 2 025 1:08pm Hot flashes acute May 1:08pm Stomatitis acute May 19, 2025 1:08pm Weight gain acute May 1:08pm Ovarian cancer chronic May 19, 2025 1:08pm Peritoneal carcinomatosis chronic May 19, 2025 1:08pm Ovarian cancer chronic May 25, 2025 11:01am Peritoneal carcinomatosis chronic May 25, 2025 11:01am [facility] Work Phone: [phone]) [phone] Evaluation note* Diagnosis Onset Date Resolution Status Admit Date Bilateral carpal tunnel syndrome acu te January 18, 2025 8:21am Bilateral carpal tunnel syndrome acu te January 25, 2025 2:23pm Ovarian cancer chronic February 16, 2025 3:52pm Peritoneal carcinomatosis chronic February 16, 2025 3:52pm Bilateral carpal tunnel syndrome acu te March 29, 2025 10:55am Bilateral carpal tunnel syndrome acu te April 14, 2025 9:14am [facility] Work Phone: 1(177) 148-540305-05-2025 Evaluation note* Diagnosis Onset Date Resolution Status Admit Date Bilateral carpal tunnel syndrome acu te January 18, 2025 8:21am Bilateral carpal tunnel syndrome acu te January 25, 2025 2:23pm Ovarian cancer chronic February 16, 2025 3:52pm Peritoneal carcinomatosis chronic February 16, 2025 3:52pm Bilateral carpal tunnel syndrome acu te March 29, 2025 10:55am Bilateral carpal tunnel syndrome acu te April 14, 2025 9:14am Bilateral carpal tunnel syndrome acu te April 26, 2025 2:06pm [facility] Work Phone: 1(552) 137-381203-26-2025 Evaluation note* Diagnosis Onset Date Resolution Status Admit Date Ovarian cancer chronic November 1:32pm Peritoneal carcinomatosis chronic December 09, 2024 1:32pm Bilateral carpal tunnel syndrome acu te January 18, 2025 8:21am Bilateral carpal tunnel syndrome acu te January 25, 2025 2:23pm Ovarian cancer chronic February 16, 2025 3:52pm Peritoneal carcinomatosis chronic February 16, 2025 3:52pm [facility] Work Phone: 1(234) 762-460803-26-2025 Evaluation note* Diagnosis Onset Date Resolution Status Admit Date Ovarian cancer chronic November 1:32pm Peritoneal carcinomatosis chronic December 09, 2024 1:32pm Bilateral carpal tunnel syndrome acu te January 18, 2025 8:21am Bilateral carpal tunnel syndrome acu te January 25, 2025 2:23pm Ovarian cancer chronic February 16, 2025 3:52pm Peritoneal carcinomatosis chronic February 16, 2025 3:52pm Bilateral carpal tunnel syndrome acu te March 29, 2025 10:55am [facility] Work Phone: 1(332) 929-491903-19-2025 Radiology Diagnostic study note [facility] Imaging Services [address] [place] [address] CT Chest, Abd, Pel w/Contrast MR#: [id number] Acct: [id number] Name: JESSICA ALARCON Rep #: [id number] : 1980 F 44 From: Todd Lynn MD PCP: Adan Garcia NP-Shyla Status: REG C Study:CT Chest, Abd, Pel w/Contrast Date of E xam: 12/02/24 Exam# [id number] Ordering Dr: Coco Lima MD PROCEDURE: CT CHEST, ABD, PEL W/CONTRAST 12/02/2024 REASON FOR EXAM: F/U OVARIAN CANCER TECHNIQUE: Chest, abdomen and pelvis CT with intravenous contrast. Coronal and Sagittal reconstruction series were provided. One or more dose reduction techniques were used (e.g., Automated exposure control, adjustment of the mA and/or kV according to patient size, use of iterative reconstruction technique. PATIENT PREPARATION: Per protocol ORAL CONTRAST TYPE: Given CONTRAST: Isovue-300 VOLUME: 100 mLmL RADIATION DOSE SUMMARY: CTDlvol: 16 mGy DLP: 1731.57 mGycm COMPARISON: Comparison is made with prior study dated September 01, 2024. FINDINGS: CT CHEST: Hardware: A right-sided port a catheter is seen with the tip in the superior vena cava. Lymph nodes: No suspicious lymph nodes are seen. Heart and Vasculature: Coronary artery calcifications are noted. Lungs and Airways: No pulmonary infiltrate or pulmonary nodule is seen. Pleura: The previously seen left pleural effusion has resolved. Bones: Degenerative changes of the thoracic spine. CT ABDOMEN/PELVIS: Liver: Diffuse fatty infiltration. Gallbladder: Unremarkable. Spleen: Normal size. Pancreas: Normal size without evidence of mass surrounding inflammation or ductal dilation. Adrenals: Unremarkable Kidneys: Normal renal sizes. No hydronephrosis. Bladder: Unremarkable. Reproductive Organs: Prior hysterectomy. Bilateral oophorectomy. Bowel: Colonic diverticulosis without diverticulitis. Appendix: The appendix is not identified. There is no inflammatory process identified in the right lower quadrant to suggest appendicitis. Lymph nodes: Unremarkable. Vasculature: The abdominal aorta and IVC are normal. Peritoneum / Retroperitoneum: Unremarkable. Bones: Unremarkable CT/CT Chest, Abd, Pel w/Contrast IMPRESSION: Interval resolution of the left pleural effusion. Fatty infiltration of the liver. No acute abnormality is seen. Reading Location: [facility]1 CC: DIANNE Garcia; Dr. Coco Lima MD ~ Interior Block Wirer: Signed [facility]02-03-2025 Evaluation note* Diagnosis Onset Date Resolution Status Admit Date Bilateral carpal tunnel syndrome acute October 19 1:00pm Ovarian cancer chronic November 1:32pm Peritoneal carcinomatosis chronic December 09, 2024 1:32pm Bilateral carpal tunnel syndrome acute January 18, 2025 8: 21am Bilateral carpal tunnel syndrome acute January 25, 2025 2 :23pm Ovarian cancer chronic February 16, 2025 3:52pm Peritoneal carcinomatosis chronic February 16, 2025 3:52pm [facility] Work Phone: 1(965) 470-712012-10-2024 Evaluation note* Diagnosis Onset Date Resolution Status Admit Date Malignant neoplasm metastati c to omentum chronic August 25, 2 024 2:19pm Ovarian cancer chronic August 162023 2:19pm Peritoneal carcinomatosis chronic August 25, 2024 2:19pm Cough resolved August 25, 2024 2:19pm Pleural effusion resolved August 25, 2024 2:19pm Swelling of both lower extremities resolved August 25, 2 024 2:19pm Pleural effusion resolved August 26, 2024 1:03pm Ovarian cancer chronic August 162023 9:16am Peritoneal carcinomatosis chronic September 02, 2024 9:16am Pleural effusion resolved September 02, 2024 9:16am Swelling of both lower extremities resolved September 02, 2 024 9:16am Ovarian cancer chronic October 142024 2:40pm Peritoneal carcinomatosis chronic 2024 2:40pm Bilateral carpal tunnel syndrome acute October 19 1:00pm Ovarian cancer chronic November 1:32pm Peritoneal carcinomatosis chronic December 09, 2024 1:32pm [facility] Work Phone: 1(903) 116-706411-27-2024 Note. MICRO - Microbiology PROCEDURE: Culture Body Fluid with Gram Stain [*1] SOURCE: Body Fluid, BODY SITE: Miscellaneous COLLECTED DATE/TIME: 08/05/2024 10:23 EST RECEIVED DATE/TIME: 08/05/2024 11:20 EST START DATE/TIME: 08/05/2024 11:20 EST FREE TEXT SOURCE: FINAL REPORTS Final Report [] Verified Date/Time/Personnel: 08/12/2024 07:27 EST No aerobes or anaerobes isolated at 7 days. PRELIMINARY REPORTS Preliminary Report [] Verified Date/Time/Personnel: 08/06/2024 11:25 EST No growth to date STAINS GS [] Verified Date/Time/Personnel: 08/05/2024 14:35 EST Unsedimented 3+ Mononuclear cells No organisms seen. Performing Locations *1: This test was performed at: [address], [facility] , [facility]11-24-2024 Note. MICRO - Microbiology PROCEDURE: Blood Culture (bacterial) [*1] SOURCE: Blood BODY SITE: Arm R COLLECTED DATE/TIME: 08/04/2024 05:40 EST RECEIVED DATE/TIME: 08/04/2024 13:46 EST START DATE/TIME: 08/04/2024 13:47 EST FREE TEXT SOURCE: FINAL REPORTS Final Report [] Verified Date/Time/Personnel: 08/09/2024 13:59 EST Blood Culture: No Growth at 5 days. PRELIMINARY REPORTS Preliminary Report [] Verified Date/Time/Personnel: 08/04/2024 15:00 EST Culture has been received in lab and is no growth to date. Routine cultures are held for 5 days. Performing Locations *1: This test was performed at: [address], [address] [place], [place] [address]11-24-2024 Note. MICRO - Microbiology PROCEDURE: Blood Culture (bacterial) [*1] SOURCE: Blood BODY SITE: Arm L COLLECTED DATE/TIME: 08/04/2024 05:40 EST RECEIVED DATE/TIME: 08/04/2024 13:46 EST START DATE/TIME: 08/04/2024 13:46 EST FREE TEXT SOURCE: FINAL REPORTS Final Report [] Verified Date/Time/Personnel: 08/09/2024 13:59 EST Blood Culture: No Growth at 5 days. PRELIMINARY REPORTS Preliminary Report [] Verified Date/Time/Personnel: 08/04/2024 15:00 EST Culture has been received in lab and is no growth to date. Routine cultures are held for 5 days. Performing Locations *1: This test was performed at: [address], [address] [place], [place] [address]11-21-2024 Hospital Discharge instructions Patient Education 08/06/2024 15:49:35 Chronic Pain, Adult Chronic Pain, Adult Chronic pain is a type of pain that lasts or keeps coming back (recurs) for at least six months. You may have chronic headaches, abdominal pain, or body pain. Chronic pain may be related to an illness, such as fibromyalgia or complex regional pain syndrome. Sometimes the cause of chronic pain is not known. Chronic pain can make it hard for you to do daily activities. If not treated, chronic pain can leadto other health problems, including anxiety and depression. Treatment depends on the cause and severity of your pain. You may need to work with a pain specialist to come up with a treatment plan. Theplan may include medicine, counseling, and physical therapy. Many people benefit from a combinationof two or more types of treatment to control their pain. Follow these instructions at home: Lifestyle Consider keeping a pain diary to share with your health care providers. Consider talking with a mental health care provider (psychologist) about how to cope with chronic pain. Consider joining a chronic pain support group. Try to control or lower your stress levels. Talk to your health care provider about strategies to do this. General instructions Take xsbq-hct-bkuztpr and prescription medicines only as told by your health care provider. Follow your treatment plan as told by your health care provider. This may include: ?Gentle, regular exercise. ?Eating a healthy diet that includes foods such as vegetables, fruits, fish, and lean meats. ?Cognitive or behavioral therapy. ?Working with a physical therapist. ?Meditation or yoga. ?Acupuncture or massage therapy. ?Aroma, color, light, or sound therapy. ?Local electrical stimulation. ?Shots (injections) of numbing or pain-relieving medicines into the spine or the area of pain. Check your pain level as told by your health care provider. Ask your health care provider if you should use a pain scale. Learn as much as you can about how to manage your chronic pain. Ask your health care provider if anintensive pain rehabilitation program or a chronic pain specialist would be helpful. Keep all follow-up visits as told by your health care provider. This is important. Contact a health care provider if: Your pain gets worse. You have new pain. You have trouble sleeping. You have trouble doing your normal activities. Your pain is not controlled with treatment. Your have side effects from pain medicine. You feel weak. Get help right away if: You lose feeling or have numbness in your body. You lose control of bowel or bladder function. Your pain suddenly gets much worse. You develop shaking or chills. You develop confusion. You develop chest pain. You have trouble breathing or shortness of breath. You pass out. You have thoughts about hurting yourself or others. This information is not intended to replace advice given to you by your health care provider. Make sure you discuss any questions you have with your health care provider. Document Released: 05/25/2003 Document Revised: 08/15/2018 Document Reviewed: 02/19/2017 [employer] Patient Education 2020 [employer]. Follow Up Care 08/04/2024 13:15:47 With:ADAN GARCIA APRN-UPKEEP WORKER Address: [address] [place] [address] [address] [place] [address]- When:1-2 days Comments:Please call the office to schedule a hospital follow-up appointment [facility] 11-21-2024 Note Discharge Instructions Thank you for allowing [facility] to assist you with your healthcare needs. The following is importantdischarge information regarding your hospital visit. Your Care Team ADAN GARCIA Your Diagnosis Cancer-related pain Carcinoma of right ovary What to do next Follow Up Appointments Follow Up with ADAN GARCIA When:Within 1-2 days Where:[address] [place] [address]- Additional Information: Please call the office to schedule a hospital follow-up appointment The Following Activity and Diet Have Been Ordered for You Discharge Activity - Ordered -- NO activity restrictions, 08/06/24 12:50:00 EST Discharge Diet - Ordered -- No changes were made to your diet during your hospital stay. Please resume your pre hospitalization diet on discharge., 08/06/24 12:50:00 EST The Following Equipment Has Been Ordered for You No qualifying data available. The Following Treatments Have Been Ordered for You Discharge Labs No qualifying data available. Discharge Radiology Discharge Outpatient Radiology - Ordered -- chest X Ray, Pneumonia, pleural effusion, follow-up within: 2 weeks, Results Notify to: ADAN GARCIA, 08/06/24 12:50:00 EST Other Therapies No qualifying data available. Post Acute Orders No qualifying data available. Someone Will Contact You Regarding These Home Health Referrals No home referrals have been ordered for you. No one will call you. Allergies Taxol(Severe) anaphylaxis Medications Please ask your primary doctor or pharmacist before taking any other medication not listed, including over the counter drugs, herbal medications, vitamins and or supplements as they may interact withyour home medications. What How Much When Why Instructions Last Dose New cefdinir (cefdinir 300 mg oral capsule) 1 cap by mouth Every 12 hours Duration: 7 Days Pickup at [facility] Unchanged acetaminophen-hydrocodone (acetaminophen-hydrocodone 325 mg-5 mg oral tablet) 1 tab(s) by mouth Every 6 hours as needed for for pain Carcinoma of right ovary Cancer-related pain Duration: 7 Days Unchanged albuterol (albuterol MDI (90 mcg/ inh) CFC free inhalation aerosol) 1 puff(s) by inhalation Every 4 hours as needed for as needed for wheezing Unchanged clonazePAM (clonazePAM 0.5 mg oral tablet) 1 tab(s) by mouth Once a day as needed for Anxiety Unchanged dexAMETHasone (dexAMETHasone 4 mg oral tablet) See instructions 2 tabs twice a day, the day before chemo. Unchanged dicyclomine (dicyclomine 20 mg oral tablet) 1 tab(s) by mouth Four (4) times a day as needed for abdominal discomfort Duration: 14 Days Unchanged enoxaparin (Lovenox) 40 Milligram Subcutaneous Once a day Unchanged FLUoxetine (FLUoxetine 20 mg oral capsule) 1 cap by mouth Once a day Unchanged loratadine (Claritin 10 mg oral tablet) 1 tab(s) by mouth Once a day Unchanged omeprazole 20 Milligram by mouth Once a day Unchanged ondansetron (ondansetron 4 mg oral tablet) 1 tab(s) by mouth Every 6 hours prn nausea Pharmacy Information [facility]: [address] [place], [place] [id number] [phone] What How Much When Comments Stop Taking levoFLOXacin (Levaquin) 750 Milligram IV Piggyback Every 24 hours Please take this list to your next doctor s visit. Bring all medications you take, including over the counter medications, herbals and other supplements with you to your doctor s visit. Patients and families are reminded to discard old lists and to update any records with all medication providers or retail pharmacies. Education Materials Chronic Pain, Adult Chronic pain is a type of pain that lasts or keeps coming back (recurs) for at least six months. You may have chronic headaches, abdominal pain, or body pain. Chronic pain may be related to an illness, such as fibromyalgia or complex regional pain syndrome. Sometimes the cause of chronic pain is not known. Chronic pain can make it hard for you to do daily activities. If not treated, chronic pain can leadto other health problems, including anxiety and depression. Treatment depends on the cause and severity of your pain. You may need to work with a pain specialist to come up with a treatment plan. Theplan may include medicine, counseling, and physical therapy. Many people benefit from a combinationof two or more types of treatment to control their pain. Follow these instructions at home: Lifestyle Consider keeping a pain diary to share with your health care providers. Consider talking with a mental health care provider (psychologist) about how to cope with chronic pain. Consider joining a chronic pain support group. Try to control or lower your stress levels. Talk to your health care provider about strategies to do this. General instructions Take ndmk-pae-qehxita and prescription medicines only as told by your health care provider. Follow your treatment plan as told by your health care provider. This may include: ? Gentle, regular exercise. ? Eating a healthy diet that includes foods such as vegetables, fruits, fish, and lean meats. ? Cognitive or behavioral therapy. ? Working with a physical therapist. ? Meditation or yoga. ? Acupuncture or massage therapy. ? Aroma, color, light, or sound therapy. ? Local electrical stimulation. ? Shots (injections) of numbing or pain-relieving medicines into the spine or the area of pain. Check your pain level as told by your health care provider. Ask your health care provider if you should use a pain scale. Learn as much as you can about how to manage your chronic pain. Ask your health care provider if anintensive pain rehabilitation program or a chronic pain specialist would be helpful. Keep all follow-up visits as told by your health care provider. This is important. Contact a health care provider if: Your pain gets worse. You have new pain. You have trouble sleeping. You have trouble doing your normal activities. Your pain is not controlled with treatment. Your have side effects from pain medicine. You feel weak. Get help right away if: You lose feeling or have numbness in your body. You lose control of bowel or bladder function. Your pain suddenly gets much worse. You develop shaking or chills. You develop confusion. You develop chest pain. You have trouble breathing or shortness of breath. You pass out. You have thoughts about hurting yourself or others. This information is not intended to replace advice given to you by your health care provider. Make sure you discuss any questions you have with your health care provider. Document Released: 05/25/2003 Document Revised: 08/15/2018 Document Reviewed: 02/19/2017 Elsevier Patient Education 2020 [employer] Additional Information VACCINATE! IT SAVES LIVES! Members of the community who have not yet received the COVID-19 vaccine and would like to receive it can visit one of [facility] vaccine clinics. There are many vaccine clinic locations within the [facility]. For locations and available times, please visit https://gettheshot.coronavirus.[place].gov/. It is important to note that some COVID mobile vaccine clinics are held outdoors and may be canceled in rainy or stormy conditions. To learn more about pediatric vaccinations (ages 5-11), we invite you to visit the [facility] webpage. https://www.[facility].org/pages/9695-Eexdp-Wczypoqzfhk-Mqameamxef-Sbyny-Dmk stions.htmlTo learn more about the COVID-19 vaccine, we invite you to visit the CDC website for a list of frequently asked questions.https://www.cdc.gov/coronavirus/2019-ncov/vaccines/faq.html [facility] Patient Portal Access Instructions: Stay connected with your healthcare team and access your personal medical information anytime with the [employer] Patient Portal. Please follow the directions below to create your [employer] account: 1.Access the email account you provided upon registration to the hospital/physician office.2.Look for an invitation email from [facility].3.Open the email and access the invitation link: AcceptInvitation to [employer].4.Fill in the required schneider to create your account. To access your account, visit [employer]. Click the blue button labeled Access Patient Portal and then log in with the username and password that you created in the steps above. You will be able to view your test results, lab results, a summary of your visits, upcoming appointments and more. There is also a convenient messaging option where you can send secure messages to your p [employer]. In addition, you will have the ability to download any documents or summaries to your computer and/or send the information securely to a physician. Remember that your healthcare information is confidential, so carefully consider who you will allowto register on the [employer] Patient Portal for access to your information. You can also access the [employer] Patient Portal on the [employer] roma. Simply click on Patient Portal and then log into your account. If you would like to receive a full copy of your medical records, please contact the [facility] Medical Records Department by calling [phone], Saturday through Saturday between 8 a.m. and 4:30 p.m. HOW TO SAFELY DISPOSE OF PRESCRIPTION MEDICATIONS Please use one of the following methods to safely dispose of your unused medications. 1.Use a drug disposal kit: the drug disposal pouch allows you to safely discard your old and unuseddrugs. Ask your nurse to give you one when you are discharged.2.Visit a local take-back location: Many local pharmacies and police departments have programs that collect old and unwanted prescriptiondrugs. Call your local pharmacy or go to http://MexxBooks.AllPeers/8L3In2s to find one close to you.3.Make use of household items: Use cat litter or old coffee grounds to dispose medications if other options arenot available. Mix your drugs with these household products, seal them in an airtight container andthrow it into the garbage. Call [facility]: [phone] to be sure your drugs can be disposed of in this way. Some medicines may require a different approach.4.Never flush your medications down the toilet. IF YOU HAVE BEEN PRESCRIBED AN OPIOID FOR PAIN If you have been prescribed an opioid (such as hydrocodone, oxycodone or morphine), it is critical to understand the possible side effects and risks of opioid pain medications. Even when taken as directed, opioids can have several side effects including: Tolerance, meaning you might need to take more of a medication for the same pain relief. Nausea, vomiting and/or constipation. Sleepiness, dizziness, dry mouth, confusion, depression or itching. Physical dependence, meaning you have withdrawal symptoms when a medication is stopped, can develop within a few days. KNOW YOUR RESPONSIBILITIES It is important to know exactly how much and how often to take the opioid pain medications you are prescribed. Never take opioids in higher amounts or more often than prescribed. Do not combine opioids with alcohol or other drugs that cause drowsiness, such as benzodiazepines, also known as benzos, including diazepam and alprazolam, muscle relaxants or sleep aids. Never sell or share prescription opioids. This is illegal. Store opioids in a secure place and out of reach of others (including children, family, friends and visitors). The last page of this document has been signed and retained as a CHART COPY. Signatures Patient Education Materials Chronic Pain, Adult Medication Leaflets My discharge plan and instructions have been reviewed and explained to me and IELVIRA ERIN A understand my current condition and have read and understand these discharge instructions. I have received a written copy of the plan/instructions. If I have questions, I am aware that I should contact my doctor. 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 Discharge summary [facility] Medicine Discharge summary Date of Admission: 08/05/2024 02:03:00 Date of Discharge: 08/06/2024 14:14:35 Discharge Diagnosis: Acute hypoxic respiratory failure Pneumonia Parapneumonic effusion Cancer-related pain; Carcinoma of right ovary Brief Hospital Course: This is a 43 Years old Female patient with history of ovarian cancer on chemotherapy [facility], [facility]. Apparently her symptoms started a week ago. Prior to that her kids were able with respiratory illness and they were on antibiotics. Patient was noted to have acute hypoxic respiratory failure and pneumonia and parapneumonic effusion. She was admitted here and underwent thoracentesis and noted to have exudative effusion. Placed on broad-spectrum antibiotics. Patient seen by pulmonary. Overall patient is feeling significantly better and pulmonary was okay with her being discharged and recommended outpatient follow-up with repeat x-ray. Patient will need close follow-up with her oncologist and PCP. Treatment plan discussed with patient and family. Vitals: Temperature Oral: 36.7 DegC Peripheral Pulse Rate: 92 bpm Respiratory Rate: 20 br/min Systolic Blood Pressure Non-Invasive: 121 mmHg Diastolic Blood Pressure Non-Invasive: 80 mmHg Blood Pressure Method: Automatic Blood Pressure Location: Left arm Blood Pressure Cuff Size: Medium Consultations: ADAN GARCIA APRN-OSCAR; REANNA FIGUEROA MD; ERICH MCKINNEY MD; MELANIE SANCHEZ MD Complications: None Discharge condition:Stable Discharge disposition: To Home Outstanding and pending Issues/Tests: Discharge Radiology Discharge Outpatient Radiology - Ordered -- chest X Ray, Pneumonia, pleural effusion, follow-up within: 2 weeks, Results Notify to: ADAN GARCIA APRN-UPKEEP WORKER, 08/06/24 12:50:00 EST Discharge Medications: Home Medications (11) Active acetaminophen-hydrocodone 325 mg-5 mg oral tablet 1 tab(s), PRN, Oral, q6h albuterol MDI (90 mcg/inh) CFC free inhalation aerosol 1 puff(s), PRN, Inhalation, q4h cefdinir 300 mg oral capsule 300 mg = 1 cap(s), Oral, q12h Claritin 10 mg oral tablet 10 mg = 1 tab(s), Oral, qDay clonazePAM 0.5 mg oral tablet 0.5 mg = 1 tab(s), PRN, Oral, qDay dexAMETHasone 4 mg oral tablet See Instructions dicyclomine 20 mg oral tablet 20 mg = 1 tab(s), PRN, Oral, QID FLUoxetine 20 mg oral capsule 20 mg = 1 cap(s), Oral, qDay Lovenox 40 mg = 0.4 mL, Subcutaneous, qDay omeprazole 20 mg, Oral, qDay ondansetron 4 mg oral tablet 4 mg = 1 tab(s), Oral, q6h Discharge instructions: 1. Activity: Resume prehospital activity. 2. Discharge Diet - Ordered -- No changes were made to your diet during your hospital stay. Please resume your pre hospitalization diet on discharge., 08/06/24 12:50:00 EST Total discharge time is more than 31 minutes Signature: Basilio Saldana M.D. Digitally Signed by BASILIO SALDANA MD on 08/06/2024 02:[address] [facility] [id number] Note* Exam Date Time Procedure Performing Provider Status 08/06/24 1:13 PM VL Venous US/Doppler Both Legs(for DVT) Auth (Verified) [facility] 11-21-2024 Pulmonary Progress note Date of Service 08/06/2024 Subjective Patient remains on room air. No pain with deep breaths. No cough no phlegm production. Objective Vitals and Measurements T: 36.7 C (Oral) TMIN: 36.7 C (Oral) TMAX: 36.9 C (Oral) HR: 92 RR: 20 BP: 121/80 SpO2: 94% WT: 155.3 kg Intake and Output 7AM Yesterday to 7AM Today Intake and Output (Last 24 hours) Intake Oral Intake 300.00 Output Stool Count 0.00 Total Summary Total Intake 300.00 Total Output 0.00 Fluid Balance 300.00 Physical Exam Patient is alert, interactive, following commands. He has bilateral breath sounds and is breathing comfortably without the use of accessory muscles Weight Dosing Weight: 155.3 kg (08/06/24) Dosing Weight: 129 kg (08/05/24) Medications Medications (15) Active Scheduled: (6) azithromycin 250 mg tablet 500 mg 2 tab(s), Oral, qDay cefTRIAXone IVP syringe 2 gram(s) 20 mL, IV Push (INT), qDay enoxaparin 40 mg/ 0.4mL syringe 40 mg 0.4 mL, Subcutaneous, qDay fluoxetine 20 mg Capsule 20 mg 1 cap(s), Oral, qDay omeprazole [address] capsule 20 mg 1 cap(s), Oral, qDay ondansetron 4 mg tablet 4 mg 1 tab(s), Oral, q6h Continuous: (0) PRN: (9) acetaminophen 325 mg Tablet 650 mg 2 tab(s), Oral, q6hWA acetaminophen-HYDROcodone 325-5 mg tablet 1 tab(s), Oral, q6h albuterol 0.083% Soln UD (2.5mg/3 mL) 2.5 mg 3 mL, Inhalation, q4hRT clonazePAM 0.5 mg tablet 0.5 mg 1 tab(s), Oral, qDay dextrose 50% Solution Disp syringe 50 mL 12.5 gram(s) 25 mL, IV Push, AsDirected dicyclomine 10 mg capsule 20 mg 2 cap(s), Oral, QID melatonin 3 mg tablet 3 mg 1 tab(s), Oral, qHS melatonin 3 mg tablet 3 mg 1 tab(s), Oral, qHS ondansetron 2 mg/ 1 mL 2 mL INJ 4 mg 2 mL, IV Push, q4h Lab Results 08/06 07:05 WBC: 5.7 Hgb: 9.6 L Hct: 27.9 L Platelet: 167 Neutrophil %: 71.7 Glucose Level: 93 Sodium Level: 141 Potassium Level: 3.8 BUN: 12.0 Creatinine Lvl (s): 0.67 EKG No qualifying data available. Assessment/Plan Cancer-related pain Carcinoma of right ovary Assessment Hypoxic respiratory failure, improved Left lower lobe pneumonia Left-sided effusion, lymphocyte predominant exudate. Likely parapneumonic. No malignant cells seen on cytology. Plan Agree with treatment of community-acquired pneumonia with oral antibiotics Cytology was reviewed with the patient and her at the bedside. No further workup needed while inpatient. Patient stable for discharge from a pulmonary standpoint. Recommend chest x-ray in 2 weeks. To look for reaccumulation of effusion. This can be done closer to home with the patient's primary oncologist or primary care provider. The patient where she has a PET scan to be done within the next month after her last cycle of chemotherapy. This may be helpful in the event that there is recurrence of effusion. Digitally Signed by REANNA FIGUEROA MD on 08/06/2024 12:[address] [facility] [id number] Note ORIGINAL EXAMINATION: TWO XRAY VIEWS OF THE CHEST 08/06/2024 9:06 am COMPARISON: 08/05/2024 HISTORY: ORDERING SYSTEM PROVIDED HISTORY: Reason for Exam: Shortness of breath FINDINGS: Persistent blunting left costophrenic angle appears to reflect effusion, scarring and or adjacent atelectasis or infiltrate. There is non optimal inspiratory effort. Tunneled right IJ central line remains in functional in stable position. There is no cardiomegaly, pulmonary edema or pneumothorax. IMPRESSION: Persistent blunting left costophrenic angle that may reflect effusion, atelectasis or infiltrate. Interpreted by: Shaquille Cardona DO Preliminary Report By: Shaquille Cardona DO Electronically signed By Shaquille Cardona DO Dictated Date: 08/06/2024 9:30:49 AM Prelim Date: 08/06/2024 9:31:31 AM Sign Date: 08/06/2024 9:31:31 AM Ordering Provider: [facility]11-21-2024 Note pleural effusion, hx of ovarian cancer [facility] 11-21-2024 Note pleural effusion, hx of ovarian cancer [facility] 11-21-2024 Note pleural effusion, hx of ovarian cancer [facility] 11-21-2024 Note pleural effusion, hx of ovarian cancer [facility] 11-21-2024 Note pleural effusion, hx of ovarian cancer [facility] 11-21-2024 Note pleural effusion, hx of ovarian cancer [facility] 11-21-2024 Note pleural effusion, hx of ovarian cancer [facility] 11-20-2024 Pulmonary Consult note Date of Service 08/05/2024 Reason for Consultation Pneumonia with presumed parapneumonic effusion History of Present Illness 43-year-old female who has a history of ovarian cancer on chemo therapy admitted to [facility] originally with pneumonia and parapneumonic effusion subsequent transferred [facility] for further care. Patient notes that multiple members of her family over the last 2 weeks have been ill. It sounds asthough 2 of her children had mycoplasma pneumonia and there were others with illnesses as well. The patient self started developing some chills as well as increased cough sputum production as well as shortness of breath. Symptoms worsened and she became more hypoxic so presented to [facility] where she was placed on nasal cannula started on empiric antibiotics and imaging was obtained. 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 Her is an EMT Because of pleural effusion that was identified she was transferred to [facility] for furthermanagement. Here she underwent thoracentesis with a liter of fluid that was removed. LDH was elevated at 670 suggestive of exudate. However no organisms were seen on the Gram stain. Cytology has beensent. Since the sore thoracentesis the patient states that she is feeling better. She continues to have some cough but not as short of breath definitely not as much chest pain as well. She has noted a decrease in her appetite since she has been sick decreased energy has been noted aswell. The pleural fluid was described as being chylous Review of Systems Other review of systems otherwise negative Physical Exam Vitals and Measurements T: 36.7 C (Oral) TMIN: 36.7 C (Oral) TMAX: 37.2 C (Oral) HR: 99 RR: 18 BP: 129/75 SpO2: 95% HT: 165.1 cm WT: 129 kg BMI: 47.33 Weight Dosing Weight: 129 kg (11/20/24) General: in bed, NAD HEENT: PERRL, EOMI, MM moist Neck: supple Chest: lungs clearer coarse breath sounds, left greater than right Heart: RRR nl s1 s2 Abdomen: + BS, soft, nontender Extremities: no CCE Neuro: Alert, nonfocal Skin: warm, dry Psych: no anxiety Lab Results No 36 Hour Lab Data Assessment/Plan Cancer-related pain Carcinoma of right ovary Assessment Hypoxic respiratory failure, improved Left lower lobe pneumonia Left parapneumonic effusion Ovarian cancer on chemotherapy Plan Agree with empiric antimicrobial therapy Await culture data from the pleural effusion Recheck chest x-ray tomorrow morning Wean oxygen off Encourage p.o. intake Await cytology Long discussion with the patient and her multiple questions answered Thanks for this consultation Melanie Sanchez M.D., [facility] High degree of medical complexity noted in this patient with review of external notes and results of tests, ordering of new tests, and an independent review of the patient. I reviewed tests ordered by other physicians and reviewed my assessment with other health care providers. Problem List/Past Medical History Ongoing Anxiety with depression Family history of breast cancer in mother Oral thrush Primary low grade serous adenocarcinoma of ovary Historical Acute superficial venous thrombosis of lower extremity Procedure/Surgical History LEEP: 2008 Colposcopy: 2008 Appendectomy: 2002 History of total hysterectomy with bilateral salpingo-oophorectomy Medications Inpatient acetaminophen, 650 mg= 2 tab(s), Oral, q6hWA, PRN acetaminophen-hydrocodone 325 mg-5 mg oral tablet, 1 tab(s), Oral, q6h, PRN albuterol 2.5 mg/3 mL (0.083%) inhalation solution, 2.5 mg= 3 mL, Inhalation, q4hRT, PRN clonazePAM, 0.5 mg= 1 tab(s), Oral, qDay, PRN Dextrose 50% IV Push, 12.5 gram(s)= 25 mL, IV Push, AsDirected, PRN dicyclomine, 20 mg= 2 cap(s), Oral, QID, PRN FLUoxetine, 20 mg= 1 cap(s), Oral, qDay Lovenox, 40 mg= 0.4 mL, Subcutaneous, qDay melatonin, 3 mg= 1 tab(s), Oral, qHS, PRN melatonin, 3 mg= 1 tab(s), Oral, qHS, PRN omeprazole, 20 mg= 1 cap(s), Oral, qDay ondansetron, 4 mg= 1 tab(s), Oral, q6h Rocephin, 2 gram(s)= 20 mL, IV Push (INT), qDay Zithromax, 500 mg= 2 tab(s), Oral, qDay Zofran, 4 mg= 2 mL, IV Push, q4h, PRN Home acetaminophen-hydrocodone 325 mg-5 mg oral tablet, 1 tab(s), Oral, q6h, PRN albuterol MDI (90 mcg/inh) CFC free inhalation aerosol, 1 puff(s), Inhalation, q4h, PRN Claritin 10 mg oral tablet, 10 mg= 1 tab(s), Oral, qDay clonazePAM 0.5 mg oral tablet, 0.5 mg= 1 tab(s), Oral, qDay, PRN dexAMETHasone 4 mg oral tablet, See Instructions dicyclomine 20 mg oral tablet, 20 mg= 1 tab(s), Oral, QID, PRN FLUoxetine 20 mg oral capsule, 20 mg= 1 cap(s), Oral, qDay Levaquin, 750 mg= 150 mL, IV Piggyback, q24h Lovenox, 40 mg= 0.4 mL, Subcutaneous, qDay omeprazole, 20 mg, Oral, qDay ondansetron 4 mg oral tablet, 4 mg= 1 tab(s), Oral, q6h, 2 refills Allergies Taxol(Severe) anaphylaxis Social History Alcohol Use: Current. Frequency: 1-2 times per year., 03/30/2024 Home/Environment Living situation: Home/Independent. Safe place to go: Yes. Domestic Concerns: Denies., 04/03/2024 Nutrition/Health Caffeine intake amount: 1-2 servings per week., 10/13/2020 Sexual Sexually active: Yes. Current partners: 1. History of sexual abuse: No., 03/10/2024 Substance Abuse Use: DENIES., 03/30/2024 Tobacco Nicotine Use: Never (less than 100 in lifetime). Exposure to Tobacco Smoke Lives in non-smoking home., 10/13/2020 Family History Alcohol abuse: Maternal Grandfather. Arthritis: Father and Paternal Grandmother. Asthma: Maternal Grandfather. BRCA1 gene mutation detected: Mother. Breast cancer: Maternal Grandmother and Unknown. Depression: Father.Negative: Mother, Sister, Brother, Daughter, Son, Grandparent, Maternal Grandfather, Maternal Grandmother and Paternal Grandmother. Diabetes: Father. Hypertension: Father and Paternal Grandfather. Ovarian cancer: Maternal Grandmother and Unknown. Health Status Family Member(s) Immunizations SARS-CoV-2 (COVID-19) mRNA-1273 vaccine: 0 unknown unit (08/07/21) SARS-CoV-2 (COVID-19) mRNA-1273 vaccine: 0 unknown unit (10/10/20) SARS-CoV-2 (COVID-19) mRNA-1273 vaccine: 0 unknown unit (09/12/20) Digitally Signed by MELANIE SANCHEZ MD on 08/05/2024 04:[address] [facility] [id number] NoteORIGINAL PROCEDURE: ULTRASOUND GUIDED THORACENTESIS CLINICAL STATEMENT: New onset pleural effusion, history of metastatic ovarian cancer, current pneumonia LATERALITY: Left FLUID REMOVED: 1050 cc FLUID COLOR: Chylous DISPOSITION OF FLUID: Sent to the lab CATHETER/NEEDLE: 5 Fr centesis catheter needle The procedure, risks, limitations, and alternatives were discussed. All questions were answered. Written informed consent obtained. Accompanying paperwork was verified for accuracy. Directed history and physical exam performed prior to the procedure. Medication reconciliation was performed by nursing personnel. Procedure was performed using a cap, sterile gloves, a sterile sheet, sterile probe cover and sterile gel, hand hygiene and hospital-approved cutaneous antisepsis. Ultrasound survey demonstrates pleural effusion. 2% lidocaine was administered at the puncture site for local anesthesia. The centesis catheter needle was advanced into the effusion under real-time sonographic guidance. After removal of the needle, the catheter was attached to the waste management system. The catheter was removed once no additional fluid could be removed and a dressing applied. Postprocedure images obtained. COMPLICATIONS: None EBL: None PATIENT CONDITION: Stable, unchanged. IMPRESSION: Successful ultrasound guided thoracentesis This procedure was performed by Reina Woods PA-C Interpreted by: Manny Spring DO Preliminary Report By: Reina Woods PA-C Electronically signed By Manny Spring DO Dictated Date: 08/05/2024 11:55:13 AM Prelim Date: 08/05/2024 11:57:52 AM Sign Date: 08/05/2024 4:15:18 PM Ordering Provider: DOMITILA [facility] [id number] Evaluation + Plan noteExtracted from: Title:History and Physical Author:ISMAEL CHAKRABORTY MD Date:08/05/24 Moderate left pleural effusi on. 1 week of symptoms of cough and progressive shortness of breath. Patient admitted for further evaluation. Thoracentesis with fluid analysis Consult pulmonology Left lower lobe pneumonia. Patient has been having a cough productive of frothy sputum. Continue Levaquin. Appreciate pulmonology input. Elevated D-dimer, tachycardia. No PE per CTA. However, bolus timing was inadequate to assess distal subsegmental branches. Patient transferred here for Doppler. Bilateral lower extremity Doppler Anxiety. Patient is anxious and tearful at this time. She feels as though she did not have a choice and where to be transferred. Had requested [place] on account of the fact that her oncologist is there. Continue home clonazepam as needed. Continue fluoxetine. Patient was on Levaquin, fluoxetine, Lovenox, pantoprazole, loratadine, as needed Tessalon Perles, IV fluids. GERD. Chronic. Continue PPI. DVT prophylaxis: Lovenox. Note dictated using voice recognition software and may contain typographical errors. Future Scheduled Tests Laboratory* Cancer Antigen 125 06/01/24 * Magnesium Level 06/01/24 * Complete Blood Count 06/01/24 * Complete Metabolic Panel 06/01/24 * [facility] [place] (Blood Specimens[place] 03/24/24 * [facility] Send out (Blood Specimens) 03/10/24 Radiology* CT Thorax w/ Contrast 05/19/24 * CT Abd/Pelvis w/ IV Contrast Only 03/24/24 [facility] 11-20-2024 Note Patient seen, chart reviewed. Please review H&P dictated earlier today for further details. Admitted to hospital with increased shortness of breath and noted to have moderate left pleural effusion. She apparently has been having some cough, shortness of breath over the past week. States that her kids were also ill and had to be placed on antibiotics. She has history of cervical cancer and on chemotherapy. Consult for left lower lobe pneumonia. Underwent thoracentesis and approximately 1 L fluid drained. Discussed with patient's . Continue with empiric antibiotics. Will discontinue Levaquin and start on Rocephin and Zithromax. Follow cultures. Treatment plan discussed with patientand family. Digitally Signed by BASILIO SALDANA MD on 08/05/2024 12:[address] [facility] [id number] Note ORIGINAL EXAMINATION: ONE XRAY VIEW OF THE CHEST TECHNIQUE: One view AP upright COMPARISON: Chest 08/03/2024 HISTORY: ORDERING SYSTEM PROVIDED HISTORY: Reason for Exam: Post LEFT Thora FINDINGS: Support devices: Stable appearing right chest port with tip terminating in the right atrium. Cardiomediastinal: The heart is stable in size and configuration. Lungs: Interval decreased left-side pleural effusion and associated compressive atelectasis following thoracentesis without a pneumothorax. Low lung volumes with hypoventilatory changes. Osseous: No acute osseous pathology. IMPRESSION: Interval decreased left-side pleural effusion and associated compressive atelectasis following thoracentesis without a pneumothorax. Interpreted by: Chris Roberts MD Preliminary Report By: Chris Roberts MD Electronically signed By Chris Roberts MD Dictated Date: 08/05/2024 10:55:05 AM Prelim Date: 08/05/2024 10:56:48 AM Sign Date: 08/05/2024 10:56:48 AM Ordering Provider: [facility]11-20-2024 Note ORIGINAL PROCEDURE: ULTRASOUND GUIDED THORACENTESIS CLINICAL STATEMENT: New onset pleural effusion, history of metastatic ovarian cancer, current pneumonia LATERALITY: Left FLUID REMOVED: 1050 cc FLUID COLOR: Chylous DISPOSITION OF FLUID: Sent to the lab CATHETER/NEEDLE: 5 Fr centesis catheter needle The procedure, risks, limitations, and alternatives were discussed. All questions were answered. Written informed consent obtained. Accompanying paperwork was verified for accuracy. Directed history and physical exam performed prior to the procedure. Medication reconciliation was performed by nursing personnel. Procedure was performed using a cap, sterile gloves, a sterile sheet, sterile probe cover and sterile gel, hand hygiene and hospital-approved cutaneous antisepsis. Ultrasound survey demonstrates pleural effusion. 2% lidocaine was administered at the puncture site for local anesthesia. The centesis catheter needle was advanced into the effusion under real-time sonographic guidance. After removal of the needle, the catheter was attached to the waste management system. The catheter was removed once no additional fluid could be removed and a dressing applied. Postprocedure images obtained. COMPLICATIONS: None EBL: None PATIENT CONDITION: Stable, unchanged. IMPRESSION: Successful ultrasound guided thoracentesis This procedure was performed by Reina Woods PA-C Interpreted by: Manny Spring DO Preliminary Report By: Reina Woods PA-C Electronically signed By Manny Spring DO Dictated Date: 08/05/2024 11:55:13 AM Prelim Date: 08/05/2024 11:57:52 AM Sign Date: 08/05/2024 4:15:18 PM Ordering Provider: [facility]11-20-2024 Note US Procedure Record Summary Primary Physician: REINA WOODS PA-C Finalized Date/Time: 08/05/24 10:42:11 Pt. Name: JESSICA ALARCONO.B./Sex: 1980 Female Med Rec #: [id number] Physician: DOMITILA CHAKRABORTY MD Financial #: [id number] Pt. Type: I Room/Bed: [facility] Admit/Disch: 08/05/24 02:03:00 - Institution: Allergies identified in patient's electronic medical record at time of printing on 08/05/24 Entry 1 Substance Taxol Reaction Type Allergy Last Modified By: PETER FERRIS APRN-UPKEEP WORKER 04/22/24 15:00:09 Case Attendance- US Entry 1 Entry 2 Case Attendee REINA WOODS Lillian Y PA-C Role Performed Primary Surgeon Head Of History Details Time In 08/05/24 10:10:00 08/05/24 10:00:00 Time Out 08/05/24 10:32:00 08/05/24 10:42:00 Procedure/Preference US Thoracentesis Left US Thoracentesis Left Card (SN) (SN) Last Modified By: Ileana Myers Lillian Y 08/05/24 10:42:05 08/05/24 10:42:05 Radiology Procedures- US Entry 1 Procedure/Preference US Thoracentesis Left Actual Procedure US THORACENTESIS LEFT Card (SN) Primary Procedure Yes Primary Surgeon REINA WOODS PA-C Anesthesia/Sedation Local Type Additional Procedure Times Start 08/05/24 10:17:00 Stop 08/05/24 10:31:00 Specialty Service SN Radiology Procedure EBL 0 mL Last Modified By: Ileana Myers 08/05/24 10:33:27 Cultures and Specimens- US Entry 1 Kind Specimen Type Fluid Date/Time 08/05/24 10:23:00 Description Cytology Last Modified By: Ileana Myers 08/05/24 10:18:47 General Case Data- US Entry 1 Case Information Room [facility] Receiving Case Level None Wound Class None Specialty SN Radiology Procedure ASA Class None Diagnosis Preop Diagnosis pl. effusion Postop Same As Preop Yes Postop Diagnosis pl. effusion Last Modified By: Ileana Myers 08/05/24 10:19:13 Medication Administration- US Entry 1 Medication 2% Lidocaine Time Administered 08/05/24 10:20:00 Route of Admin Local Dose 7 VORB Administered by Yes Administered by: REINA WOODS Physician? PA-C Last Modified By: Ileana Myers 08/05/24 10:20:27 Case Times- US Entry 1 Patient In Procedure Patient In OR 08/05/24 10:00:00 Patient Out of OR 08/05/24 10:32:00 Procedure Start/Stop Procedure Start Time 08/05/24 10:17:00 Procedure Stop Time 08/05/24 10:31:00 Last Modified By: Ileana Myers 08/05/24 10:31:39 Immediate Post Procedure Note- US Entry 1 Immediate Post Yes Findings 1050cc chylous fluid Procedure Note removed from LEFT displayed for pleural space Physician to review Closure Technique Closure Technique Primary Last Modified By: Ileana Myers 08/05/24 10:33:24 Immediate Post Procedure Note- US Signed By: REINA WOODS PA-C 08/05/24 10:32 Allergy Information- US Entry 1 Allergies Reviewed? Yes Allergies Reviewed Medical Record With Last Modified By: Ileana Myers 08/05/24 10:16:33 Radiology Protocols/Time Out- US Entry 1 Preprocedure Clinician Verifies Correct patient ID When Clinically Confirmation of correct using name & date Indicated side(s) and site(s), or MRN, Accurate Correct diagnostic and procedure, complete radiology tests Informed Consent, H & P available update immediately prior to procedure, if applicable, Sync button on OR/Procedure Room/Bedside Time 08/05/24 10:15:00 Clinician Verifies Correct patient identity including EMR & records using name and date or medical record number, Accurate procedure consent form, Correct patient position, Necessary equipment is available, Anticipated non-routine events with surgical team (case duration, estimated blood loss, patient specific concerns)., Fritz patient factors for recovery and management identified with surgical team. When Applicable Confirmation correct Team Members REINA WOODS side and site marked, Present for Time Out PA-C, Louis, Relevant images and [place] Park results are properly labeled and appropriately displayed, Alcohol based prep dry, Double verification of sterility indicators complete Instrument Sterility Team Members REINA WOODS Verifying Sterility PA-C, Ileana Myers Procedure US Thoracentesis Left (SN) Last Modified By: Ileana Myers 08/05/24 10:17:52 Skin Prep - US Entry 1 Procedure US Thoracentesis Left (SN) Skin Prep Prep Area Back Side Left By REINA WOODS Prep Agents Chloraprep PA-C Hair Removal Method N/A Last Modified By: Ileana Myers 08/05/24 10:18:07 Patient Positioning- US Entry 1 Procedure US Thoracentesis Left Body Position Upright (SN) Feet Uncrossed? Yes Pressure Points Yes Checked Last Modified By: Ileana Myers 08/05/24 10:18:35 Communications- US Entry 1 Event Report Given to Floor Event Detail Leigha was notfied Nurse amount and sent to lab Communication By Ileana Myers Date and Time 08/05/24 10:40:00 Last Modified By: Ileana Myers 08/05/24 10:41:59 Radiology Procedure Plan - US Entry 1 Radiology - Nursing Care Plan Radiology - Action Plan Action Plan - Patient demonstrates Outcome Statement knowledge of the expected reseponses to the invasive procedure, Patient's value system, lifestyle, ethnicity, and culture are considered, respected, and incorporated in the perioperative plan of care., Patient is free from signs and symptoms of infection., Patient is free from signs and symptoms of injury related to positioning., Patient receives appropriate medication(s), safely administered during the perioperative period., Patient is free from signs and symptoms of injury caused by extraneous objects (equipment, instrumentation, sponges, or sharps). Outcomes Met? Yes Shared Services And Outsourcing Manager REINA WOODS Completing PA-Shyla, Louis, Procedure Plan Ileana Park Last Modified By: Ileana Myers 08/05/24 10:19:03 Radiology Lines and Procedures- US Entry 1 Radiology Sedation Case Times Sedation Total Time 0 Radiology - Fluid/Drainage Fluid Amount mL: 1050cc Fluid Description chylous RAD - US [place], Guidewires, Cath.... Catheters OneStep Catheter 5 Fr x Miscellaneous Items Merit Tray 7 cm Radiology Urinary Catheter Radiology Procedure Site Site Condition No complications Dressing Type Bandaids Last Modified By: Ileana Myers 08/05/24 10:33:50 Transfer Post Procedure- US Entry 1 RAD - Transport to Recovery Patient Transported IV Via Transporter With Post-op Destination Patient Room Post Procedure Time Out Double Verification Yes Date/Time Verified 08/05/24 10:35:00 of ID band on patient Completed Verfied ID Band on Ileana Myers by Last Modified By: Ileana Myers 08/05/24 10:20:10 Case Comments Finalized By: Ileana Myers Document Signatures Signed By: Ileana Myers 08/05/24 10:42 [id number] NoteBody Fluid Path ReviewNegative for malignant cells. (This evaluation is based on a screening review of one cytospin slide prepared primarily for differential cell count; if clinical index of suspicion is high, Cytology evaluation is recommended, as clinically indicated) *NA* (08/05/24 10:23 AM) Path Review Subsection 11-20-2024 Nurse Progress note Pt was upset and crying. she stated, i want to be transferred to [facility] because that is where my oncologist is. I reported this to Livia Garcia rn. Digitally Signed by JASWANT Garcia on 08/05/2024 04:[address] [facility] [id number] History and physical note Date of Service 08/05/24 Chief Complaint Cough History of Present Illness 43-year-old female presents as a transfer from [place] inpatient for pleural effusion. History is obtained by my colleague who examined the patient, patient, chart review. Patient reports that sincesaturday she has had a cough productive of clear sputum. It has been progressive and she has been feeling worse since that time. Refer to [place] [facility] for further information. I was told that reason for transfer is for pulm consultation, Doppler, thoracentesis. Upon arrival to the floor she is afebrile. She is tachycardic. CBC with chronic stable anemia. D-dimer was elevated 2958. BMP with glucose 196. CTA chest showed suboptimal bolus timing. Distal subsegmental arteries not well- evaluated. No largePE. Moderate left pleural effusion. Moderate consolidation of the left lower lobe. Hepatic steatosis with small volume ascites. She was given Levaquin. Physical Exam Vitals and Measurements T: 37.2 C (Oral) HR: 102 RR: 18 BP: 116/97 SpO2: 94% HT: 165.1 cm WT: 129 kg BMI: 47.33 Weight Dosing Weight: 129 kg (08/05/24) GA: Alert and oriented x3, no acute distress Abd: Not distended HEENT: NCAT, sclera anicteric, oral mucosa moist Pulmonary: Diminished auscultation with crackles in the left. MSK: No gross deformities Cardiovascular: Tachycardic. She does have right lower extremity trace pitting edema which is greater than the left. Skin: Warm and dry Neuro: Spontaneous movement of all extremities, cranial nerves II through XII grossly normal Psychiatric: Thought content, associations, attention are all normal. Lab Results WBC: 10.1 10^3/mcL (08/03/24 20:31:00) RBC: 3.44 10^6/mcL Low (08/03/24 20:31:00) Hgb: 10.9 G/dL Low (08/03/24:00) Hct: 32.2 % Low (08/03/24:) MCV: 93.5 fL (08/03/24) MCH: 31.6 pg (08/03/24:) MCHC: 33.8 G/dL (08/03/24::) RDW: 23.6 % High (08/03/24) Platelet: 192 10^3/mcL (08/03/24) MPV: 8.3 fL (08/03/24:) Monocyte Distribution Width: 17.97 (08/03/24) Neutrophil %: 79.2 % High (08/03/24) Lymphocyte %: 10.7 % Low (08/03/24) Monocyte %: 9.9 % (08/03/24) Eosinophil %: 0 % (08/03/24) Basophil %: 0.2 % (08/03/24:) Neutrophil, Absolute: 8 10^3/mcL (08/03/24:) Lymphocyte, Absolute: 1.1 10^3/mcL (08/03/24::) Monocyte, Absolute: 1 10^3/mcL (08/03/24::) Eosinophil, Absolute: 0 10^3/mcL (08/03/24::) Basophil, Absolute: 0 10^3/mcL (08/03/24::) D-Dimer: 2958 ng/mL D-DU High (08/03/24:35:00) Glucose Level: 106 mg/dL High (08/03/24::) Sodium Level: 141 mmol/L (08/03/24:31:00) Potassium Level: 4 mmol/L (08/03/24::00) Chloride: 104 mmol/L (08/03/24::00) CO2: 29 mmol/L (08/03/24::) Electrolyte Balance: 8 mEq/L (08/03/24:31:00) BUN: 17 mg/dL (08/03/24:31:00) Creatinine Lvl (s): 0.77 mg/dL (08/03/24:31:00) BUN/Creatinine Ratio: 22 ratio (08/03/24:31:00) Calcium Lvl: 8.9 mg/dL (08/03/24:31:00) GFR Non-: 82 ml/min/1.73sqm (08/03/24::) GFR : 100 ml/min/1.73sqm (08/03/24::00) Mycoplasma IgM: Negative. (08/03/24::00) SARS-CoV-2 PCR: Cepheid Neg (08/03/24::00) FLU A PCR: Cepheid Neg (08/03/24::00) FLU B PCR: Cepheid Neg (08/03/24:31:00) RSV PCR: Cepheid Neg (08/03/24:31:00) MRSA (PCR): Not Detected Cepheid (08/04/24 00:38:00) MRSA PCR Int: See Below1 (08/04/24 00:38:00) Legionella Urine Ag: See Result (08/04/24 00:41:00) Assessment/Plan Moderate left pleural effusion. 1 week of symptoms of cough and progressive shortness of breath. Patient admitted for further evaluation. Thoracentesis with fluid analysis Consult pulmonology Left lower lobe pneumonia. Patient has been having a cough productive of frothy sputum. Continue Levaquin. Appreciate pulmonology input. Elevated D-dimer, tachycardia. No PE per CTA. However, bolus timing was inadequate to assess distalsubsegmental branches. Patient transferred here for Doppler. Bilateral lower extremity Doppler Anxiety. Patient is anxious and tearful at this time. She feels as though she did not have a choiceand where to be transferred. Had requested [place] on account of the fact that her oncologist is there. Continue home clonazepam as needed. Continue fluoxetine. Patient was on Levaquin, fluoxetine, Lovenox, pantoprazole, loratadine, as needed Tessalon Perles, IV fluids. GERD. Chronic. Continue PPI. DVT prophylaxis: Lovenox. Note dictated using voice recognition software and may contain typographical errors. Problem List/Past Medical History Ongoing Anxiety with depression Family history of breast cancer in mother Oral thrush Primary low grade serous adenocarcinoma of ovary Historical Acute superficial venous thrombosis of lower extremity Procedure/Surgical History LEEP: 2008 Colposcopy: 2008 Appendectomy: 2002 History of total hysterectomy with bilateral salpingo-oophorectomy Medications Home Medications (11) Active acetaminophen-hydrocodone 325 mg-5 mg oral tablet 1 tab(s), PRN, Oral, q6h albuterol MDI (90 mcg/inh) CFC free inhalation aerosol 1 puff(s), PRN, Inhalation, q4h Claritin 10 mg oral tablet 10 mg = 1 tab(s), Oral, qDay clonazePAM 0.5 mg oral tablet 0.5 mg = 1 tab(s), PRN, Oral, qDay dexAMETHasone 4 mg oral tablet See Instructions dicyclomine 20 mg oral tablet 20 mg = 1 tab(s), PRN, Oral, QID FLUoxetine 20 mg oral capsule 20 mg = 1 cap(s), Oral, qDay Levaquin 750 mg = 150 mL, IV Piggyback, q24h Lovenox 40 mg = 0.4 mL, Subcutaneous, qDay omeprazole 20 mg, Oral, qDay ondansetron 4 mg oral tablet 4 mg = 1 tab(s), Oral, q6h Allergies Taxol(Severe) anaphylaxis Social History Alcohol Use: Current. Frequency: 1-2 times per year., 03/30/2024 Home/Environment Living situation: Home/Independent. Safe place to go: Yes. Domestic Concerns: Denies., 04/03/2024 Nutrition/Health Caffeine intake amount: 1-2 servings per week., 10/13/2020 Sexual Sexually active: Yes. Current partners: 1. History of sexual abuse: No., 03/10/2024 Substance Abuse Use: DENIES., 03/30/2024 Tobacco Nicotine Use: Never (less than 100 in lifetime). Exposure to Tobacco Smoke Lives in non-smoking home., 10/13/2020 Family History Alcohol abuse: Maternal Grandfather. Arthritis: Father and Paternal Grandmother. Asthma: Maternal Grandfather. BRCA1 gene mutation detected: Mother. Breast cancer: Maternal Grandmother and Unknown. Depression: Father.Negative: Mother, Sister, Brother, Daughter, Son, Grandparent, Maternal Grandfather, Maternal Grandmother and Paternal Grandmother. Diabetes: Father. Hypertension: Father and Paternal Grandfather. Ovarian cancer: Maternal Grandmother and Unknown. Health Status Family Member(s) Immunizations SARS-CoV-2 (COVID-19) mRNA-1273 vaccine: 0 unknown unit (08/07/21) SARS-CoV-2 (COVID-19) mRNA-1273 vaccine: 0 unknown unit (10/10/20) SARS-CoV-2 (COVID-19) mRNA-1273 vaccine: 0 unknown unit (09/12/20) Code Status No qualifying data available. Digitally Signed by DOMITILA CHAKRABORTY MD on 08/05/2024 03:[address] [facility] [id number] Note. MICRO - Microbiology PROCEDURE: Legionella Urine Ag [*1] SOURCE: Urine BODY SITE: COLLECTED DATE/TIME: 08/04/2024 00:41 EST RECEIVED DATE/TIME: 08/04/2024 13:46 EST START DATE/TIME: 08/04/2024 13:47 EST FREE TEXT SOURCE: FINAL REPORTS Final Report [] Verified Date/Time/Personnel: 08/04/2024 14:13 EST Presumptive negative for L. pneumophila serogroup 1 antigen in urine, suggesting no recent or current infection. Legionnaire's disease cannot be ruled out since other serogroups and species may also cause disease. Performing Locations *1: This test was performed at: [facility], [address] [place] [address], [id number] , [facility]11-19-2024 Evaluation + Plan noteExtracted from: Title:History and Physical Author:GABRIELLA MONTAGUE APRN-UPKEEP WORKER Date:08/04/24 1. Pleural effusion on left Acute, new onset. Ultrasound-guided thoracentesis ordered if enough fluid to drain. Labs ordered to rule out metastatic effusion. 2. Community acquired pneumonia Acute, new onset, accompanied by dyspnea and cough. Continue Levofloxacin 750 mg IV daily. Check for legionella and mycoplasma antibody. Repeat CBC and BMP in the am. 3. Anxiety with depression Chronic. Continue current home medications. 4. 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 Last chemo was 07/15. She had been scheduled for chemo yesterday but felt too ill to go. DVT prophylaxis with Lovenox sc. Code status: Full Code. Labs, diagnostic test and progress notes reviewed as noted in HPI. Plan of care discussed with patient. All questions answered. Patient verbalizes understanding and is agreeable with plan of care. This case was discussed with collaborating physician, Dr. Rahul Machado. 78 minutes spent reviewing past diagnostic tests, reviewing lab results, vital sign trends, medical history, reviewing medications and ordering home medications, examining patient, discussed plan of care with care team, collaborating with physician, and documenting in chart. Future Scheduled Tests Laboratory* Cancer Antigen 125 06/01/24 * Magnesium Level 06/01/24 * Complete Blood Count 06/01/24 * Complete Metabolic Panel 06/01/24 * [facility] [place] Specimens[place] 03/24/24 * [facility] [place] (Blood Specimens) 03/10/24 Radiology* CT Thorax w/ Contrast 05/19/24 * CT Abd/Pelvis w/ IV Contrast Only 03/24/24 [facility] 11-19-2024 Note ORIGINAL EXAMINATION: ULTRASOUND OF THE CHEST08/04/2024 12:12 pm COMPARISON: CT 08/03/2024 HISTORY: ORDERING SYSTEM PROVIDED HISTORY: Reason for Exam: left lung to determine size of pleural effusion, FINDINGS: There is a moderate to large simple appearing left pleural effusion. Collapse left lung is also seen. No pleural effusion is seen on the right side. IMPRESSION: Moderate to large left pleural effusion as seen on CT. Interpreted by: Jerrod Chamberlain MD Preliminary Report By: Jerrod Chamberlain MD Electronically signed By Jerrod Chamberlain MD Dictated Date: 08/04/2024 12:44:36 PM Prelim Date: 08/04/2024 12:45:25 PM Sign Date: 08/04/2024 12:45:25 PM Ordering Provider: GABRIELLA [facility]11-19-2024 Note Date of Service 08/04/2024 Chief Complaint Shortness of breath and cough History of Present Illness Patient is a 43-year-old female, who follows with Adan Radha UPKEEP WORKER with a past medical history significant for low grade serous adenocarcinoma of ovary on chemotherapy and anxiety/depression, presented to [facility] emergency department with the chief complaint of dyspnea and cough. Patient states that she has had dyspnea and cough over the last week. Patient states that yesterday she could not catch her breath at all. Both of her children have been diagnosed with walking pneumonia in the last few weeks. Patient states the cough is not productive but more of a nagging, dry cough. Patient denies any fever, chills, abdominal pain, nausea or dysuria. Patient reports some chest tightness. In the emergency department, chest x-ray revealed left pleural effusion with adjacent atelectasis and/or pneumonia. CTA of the chest demonstrated no pulmonary embolus of the bilateral main pulmonary arteries or proximal lobar arteries, the distal subsegmental pulmonary arteries are not well evaluated; interval development of a moderate left pleural effusion; moderate consolidation versus atelectasis of left lower lobe; small volume ascites within the abdomen and pelvis; and hepatic steatosis. CBC remarkable for hemoglobin 10.9 and hematocrit 32.2. BMP significant for glucose 106. D-dimer 2958. COVID-19, RSV and Flu A and B negative. Patient was administered 1 liter of NS, 500 mg azithromycin IV and 1 gram Ceftriaxone IV in the ED. The case was discussed with the ED physician who recommended admission for treatment of pneumonia. She was transferred to medical surgical unit for further evaluation and treatment. We will start Levofloxacin 750 mg IV qday. We will check urine for legionella. Check mycoplasma antibody. Arrange for thoracentesis if enough fluid present in pleural effusion for this procedure. Labs ordered on pleural fluid. Continue duoneb aerosols as needed and scheduled for shortness of breath/wheezing. Patient may use supplemental oxygen as needed to maintain oxygen saturations above 92%. Repeat CBC and CMP in the am. Patient seen and evaluated this morning while resting in bed. She appears to be in no acute distress at rest but states she is still dyspneic with activity. She continues with a dry, nagging cough. Lungs are clear to auscultation. Discussed plan of care with patient and she is agreeable to the same. All questions answered. Review of Systems Review of Systems: Reviewed in detail, including general health, HEENT, cardiovascular, respiratory, gastrointestinal, genitourinary, endocrine, musculoskeletal, neurologic, vascular, skin, and psychiatric. All are negative except for those listed in the History of Present Illness. Physical Exam Vitals and Measurements T: 36.9 C (Oral) TMIN: 36.8 C (Oral) TMAX: 36.9 C (Oral) HR: 80 (Monitored) RR: 20 BP: 123/89 SpO2:97% HT: 165.1 cm WT: 124.2 kg BMI: 45.56 Weight Dosing Weight: 124.2 kg (08/03/24) Dosing Weight: 121.5 kg (08/03/24) General: No acute distress. Patient is alert and appropriate. Skin: No rash. Skin is warm, dry and intact. HEENT: Head is normocephalic, atraumatic; alopecia noted. Pupils are equal, round and reactive. Neck: Supple. No lymphadenopathy, thyromegaly. Lungs: Bilaterally clear but diminished without crepitation or wheeze. Unlabored at rest. Heart: Heart is regular rhythm, S1, S2. No murmurs, gallops or rubs. Abdomen: Abdomen is soft, nontender, obese. Bowels sounds present in all quadrants. Extremities: No clubbing, cyanosis, or edema. Peripheral pulses palpable. No calf tenderness. Neurological: Patient is awake and alert to person, place and time. Following simple commands, moving all extremities. Lab Results 08/03 20:31 WBC: 10.1 Hgb: 10.9 L Hct: 32.2 L Platelet: 192 Neutrophil %: 79.2 H Glucose Level: 106 H Sodium Level: 141 Potassium Level: 4.0 BUN: 17 Creatinine Lvl (s): 0.77 Imaging Results and Diagnostics CT Angiography Chest w/ Contrast Result Date: August 03, 2024 Verified By: MELLO LUCERO MD CLINICAL STATEMENT: IMPRESSION: 1. Suboptimal bolus timing of the IV contrast. No pulmonary embolus of the bilateral main pulmonary arteries or proximal lobar arteries. The distal subsegmental pulmonary arteries are notwell evaluated. 2. Interval development of a moderate left pleural effusion. 3. Moderate consolidation versus atelectasis of left lower lobe. 4. Small volume ascites within the abdomen and pelvis. 5.Hepatic steatosis. Correlation with clinical findings may be useful. XR Chest 2 Views Result Date: August 03, 2024 Verified By: NEO AGUILAR MD CLINICAL STATEMENT: IMPRESSION: Left pleural effusion with adjacent atelectasis and/or pneumonia. Assessment/Plan 1. Pleural effusion on left Acute, new onset. Ultrasound-guided thoracentesis ordered if enough fluid to drain. Labs ordered torule out metastatic effusion. 2. Community acquired pneumonia Acute, new onset, accompanied by dyspnea and cough. Continue Levofloxacin 750 mg IV daily. Check for legionella and mycoplasma antibody. Repeat CBC and BMP in the am. 3. Anxiety with depression Chronic. Continue current home medications. 4. 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 Last chemo was 07/15. She had been scheduled for chemo yesterday but felt too ill to go. DVT prophylaxis with Lovenox sc. Code status: Full Code. Labs, diagnostic test and progress notes reviewed as noted in HPI. Plan of care discussed with patient. All questions answered. Patient verbalizes understanding and is agreeable with plan of care. This case was discussed with collaborating physician, Dr. Rahul Machado. 78 minutes spent reviewing past diagnostic tests, reviewing lab results, vital sign trends, medicalhistory, reviewing medications and ordering home medications, examining patient, discussed plan of care with care team, collaborating with physician, and documenting in chart. Problem List/Past Medical History Ongoing Anxiety with depression Family history of breast cancer in mother Oral thrush Primary low grade serous adenocarcinoma of ovary Historical Acute superficial venous thrombosis of lower extremity Procedure/Surgical History LEEP: 2008 Colposcopy: 2008 Appendectomy: 2002 History of total hysterectomy with bilateral salpingo-oophorectomy Medications Home Medications (10) Active acetaminophen-hydrocodone 325 mg-5 mg oral tablet 1 tab(s), PRN, Oral, q6h albuterol MDI (90 mcg/inh) CFC free inhalation aerosol 1 puff(s), PRN, Inhalation, q4h Claritin 10 mg oral tablet 10 mg = 1 tab(s), Oral, qDay clonazePAM 0.5 mg oral tablet 0.5 mg = 1 tab(s), PRN, Oral, qDay dexAMETHasone 4 mg oral tablet See Instructions dicyclomine 20 mg oral tablet 20 mg = 1 tab(s), PRN, Oral, QID FLUoxetine 20 mg oral capsule 20 mg = 1 cap(s), Oral, qDay Magic mouthwash (Mvlkecut-Tteuos-Bilcgwqqf-Mycostatin) See Instructions omeprazole 20 mg, Oral, qDay ondansetron 4 mg oral tablet 4 mg = 1 tab(s), Oral, q6h Allergies Taxol(Severe) anaphylaxis Social History Alcohol Use: Current. Frequency: 1-2 times per year., 03/30/2024 Home/Environment Living situation: Home/Independent. Safe place to go: Yes. Domestic Concerns: Denies., 04/03/2024 Nutrition/Health Caffeine intake amount: 1-2 servings per week., 10/13/2020 Sexual Sexually active: Yes. Current partners: 1. History of sexual abuse: No., 03/10/2024 Substance Abuse Use: DENIES., 03/30/2024 Tobacco Nicotine Use: Never (less than 100 in lifetime). Exposure to Tobacco Smoke Lives in non-smoking home., 10/13/2020 Family History Alcohol abuse: Maternal Grandfather. Arthritis: Father and Paternal Grandmother. Asthma: Maternal Grandfather. BRCA1 gene mutation detected: Mother. Breast cancer: Maternal Grandmother and Unknown. Depression: Father.Negative: Mother, Sister, Brother, Daughter, Son, Grandparent, Maternal Grandfather, Maternal Grandmother and Paternal Grandmother. Diabetes: Father. Hypertension: Father and Paternal Grandfather. Ovarian cancer: Maternal Grandmother and Unknown. Health Status Family Member(s) Immunizations SARS-CoV-2 (COVID-19) mRNA-1273 vaccine: 0 unknown unit (08/07/21) SARS-CoV-2 (COVID-19) mRNA-1273 vaccine: 0 unknown unit (10/10/20) SARS-CoV-2 (COVID-19) mRNA-1273 vaccine: 0 unknown unit (09/12/20) Code Status Code Status - Ordered -- 08/03/24 22:42:00 EST, Full Code, Constant Order Digitally Signed by GABRIELLA MONTAGUE on 08/04/2024 11:35 AM [facility]11-18-2024 Note ORIGINAL EXAMINATION: CTA OF THE CHEST 08/03/2024 9:55 pm TECHNIQUE: CTA of the chest was performed after the administration of intravenous contrast. Multiplanar reformatted images are provided for review. MIP images are provided for review. Automated exposure control, iterative reconstruction, and/or weight based adjustment of the mA/kV was utilized to reduce the radiation dose to as low as reasonably achievable. 3D surface rendering or volume rendering reconstructions were performed. COMPARISON: CTA chest 05/17/2024 HISTORY: ORDERING SYSTEM PROVIDED HISTORY: Reason for Exam: SOB, tachycardia, malignancy FINDINGS: Pulmonary Arteries: There is suboptimal bolus timing of the IV contrast. There is no pulmonary embolus of the bilateral main pulmonary arteries or proximal lobar arteries. The distal subsegmental pulmonary arteries are not well evaluated. Mediastinum: Aorta is normal in caliber. Esophagus is normal in caliber. There are few small mediastinal nodes. The heart is mildly enlarged without pericardial effusion. Lungs/pleura: There is interval development of a moderate left pleural effusion. There is moderate consolidation versus atelectasis of left lower lobe. There is subsegmental atelectasis at inferior lingula. The right lung is clear. Upper Abdomen: There is small volume ascites within the abdomen and pelvis. There is diffuse hypoattenuation of the liver compatible with steatosis. Correlation with clinical findings may be useful. Soft Tissues/Bones: No acute bone or soft tissue abnormality. IMPRESSION: 1. Suboptimal bolus timing of the IV contrast. No pulmonary embolus of the bilateral main pulmonary arteries or proximal lobar arteries. The distal subsegmental pulmonary arteries are not well evaluated. 2. Interval development of a moderate left pleural effusion. 3. Moderate consolidation versus atelectasis of left lower lobe. 4. Small volume ascites within the abdomen and pelvis. 5. Hepatic steatosis. Correlation with clinical findings may be useful. Interpreted by: Mello Lucero Preliminary Report By: Mello Lucero Electronically signed By Mello Lucero Dictated Date: 08/03/2024 10:09:27 PM Prelim Date: 08/03/2024 10:20:02 PM Sign Date: 08/03/2024 10:20:02 PM Ordering Provider: [facility]11-18-2024 Note ORIGINAL EXAMINATION: TWO XRAY VIEWS OF THE CHEST 08/03/2024 8:56 pm COMPARISON: 05/17/2024 HISTORY: ORDERING SYSTEM PROVIDED HISTORY: Reason for Exam: cough FINDINGS: There is a right chest wall port with its tip at the superior cavoatrial junction. The cardiomediastinal silhouette appears normal. There is a left pleural effusion with adjacent atelectasis and/or pneumonia. There is no evidence of pneumothorax. No acute fracture is identified. IMPRESSION: Left pleural effusion with adjacent atelectasis and/or pneumonia. Interpreted by: Neo Aguilar Preliminary Report By: Neo Aguilar Electronically signed By Neo Aguilar Dictated Date: 08/03/2024 9:24:24 PM Prelim Date: 08/03/2024 9:24:56 PM Sign Date: 08/03/2024 9:24:56 PM Ordering Provider[facility] Note Sinus tachycardia Low voltage, precordial leads Electronic Signature: JOEY DE DIOS DO 08/03/2024 20:43:[address] [place] [address] 09-05-2024 Note. MICRO - Microbiology PROCEDURE: Stool Culture [^1 *1] SOURCE: Stool BODY SITE: COLLECTED DATE/TIME: 05/18/2024 05:02 EDT RECEIVED DATE/TIME: 05/18/2024 07:07 EDT START DATE/TIME: 05/18/2024 07:07 EDT FREE TEXT SOURCE: FINAL REPORTS Final Report [] Verified Date/Time/Personnel: 05/21/2024 10:37 EDT Normal stool nhung present. Salmonella: Negative Shigella: Negative Campylobacter: Negative PRELIMINARY REPORTS Preliminary Report [] Verified Date/Time/Personnel: 05/20/2024 10:38 EDT Normal stool nhung present. Negative for stool pathogens at 48 hours. Final report to follow. Interpretive Data ^1: Culture Stool Requests for alternative pathogens including Yersinia, E. coli 0157, C. difficile toxin, Rotavirus, Giardia and parasites require specific requests. Performing Locations *1: This test was performed at: [facility], [address] [place] [address], [id number] , [facility] ([place])05-20-2024 Discharge summary Date of Service 05/20/2024 Discharge Diagnosis 1. nausea, vomiting, abdominal cramps and diarrhea due to recent chemotherapy 2. Oral thrush 3. Ovarian cancer s/p BSO, pelvic lymph node dissection omentectomy 03/2024. She was receiving chemotherapy as outpatient. - 4. Chest pain - 5. Possible UTI 6. 1.2 cm liver lesion Hospital Course 43-year-old female with stage IIIb low-grade serous ovarian tumor status post TLH BSO, lymph node dissection, omentectomy. Patient finished second cycle of chemotherapy with carboplatin and docetaxel. Presented with likely adverse effects including nausea, vomiting, and loose stools with abdominal cramping. [employer] oncology was on board, her symptoms are due to docetaxel. Plan for nontaxane chemotherapy as outpatient Chest pain on admission: Resolved. Musculoskeletal in nature. 4 sets of troponins normal. Echo showed normal systolic function, normal wall motion. CTA of chest did not show any acute pulmonary embolism. Cardiology was on board, chest pain noncardiac in nature, they signed off. CT abdomen showed 1.2 cm liver mass, could be hemangioma, MRI of liver was recommended. It can be arranged by PCP as outpatient. Patient complained of urinary frequency for 1 week, urinalysis positive for esterase, WBC, bacteria. Urine culture showed group B strep, patient was discharged on amoxicillin. Patient seen and examined today, able to tolerate diet, stable to discharge home, loperamide was ordered for loose stools. Allergies Taxol(Severe) anaphylaxis Consults Consult to Physician - Ordered -- 05/17/24 19:00:00 EDT, KVNG LONDONO MD, Routine, Chest pain Consult to Physician (Physician Consult) - Ordered -- 05/17/24 19:15:00 EDTHAKEEM JACQUELINE MD, Routine, Ovarian cancer Imaging Results and Diagnostics CT Abd/Pelvis w/ IV Contrast Only Result Date: May 17, 2024 Verified By: MCKINLEY VERAS DO CLINICAL STATEMENT: IMPRESSION: 1. Small to moderate amount of ascites, of indeterminate etiology. Nodefinite peritoneal/omental nodularity. 2. Stable solitary homogeneous 1.2 cm enhancing mass in the liver. Findinglikely represents a benign flash fill hemangioma, but consider MRI livergiven patient's cancer history. 3. Stable wall calcifications versus wall hyperenhancement of the sigmoidcolon. No bowel obstruction. CT Angiography Chest w/ Contrast Result Date: May 17, 2024 Verified By: MCKINLEY VERAS DO CLINICAL STATEMENT: IMPRESSION: No evidence of pulmonary embolus. XR Chest 2 Views Result Date: May 17, 2024 Verified By: MCKINLEY VERAS DO CLINICAL STATEMENT: IMPRESSION: No evidence of an acute cardiopulmonary process. Physical Exam Vitals and Measurements T: 36.6 C (Oral) TMIN: 36.6 C (Oral) TMAX: 36.8 C (Oral) HR: 72 RR: 18 BP: 121/78 SpO2: 96% Weight Dosing Weight: 125 kg (05/17/24) Dosing Weight: 125 kg (05/17/24) General Appearance: Patient appears healthy, well-developed, not in any acute distress. Cardiac: Normal rate and rhythm, S1-S2 heard, no murmurs heard. Lungs: Clear on auscultation bilaterally, no wheezes or rales. Abdomen: Soft nontender, nondistended, no organomegaly. Extremities: No pedal edema. Neurological: Alert ,oriented, no focal deficits. Skin: No rashes noted. Psychiatric: Not anxious or depressed. Code Status No qualifying data available. Admission Date 05/19/2024 Discharge Date 05/20/2024 Medications New Prescription amoxicillin (amoxicillin 500 mg oral capsule)1 cap by mouth three (3) times a day for 5 Days. Refills: 0. dicyclomine (dicyclomine 20 mg oral tablet)1 tab(s) by mouth four (4) times a day as needed abdominal discomfort for 14 Days. Refills: 0. loperamide (Imodium A-D 2 mg oral tablet)2 Milligram by mouth three (3) times a day as needed Diarrhea for 7 Days. Refills: 0. nystatin (nystatin 100,000 units/mL oral suspension)5 Milliliter Swish in mouth and swallow every 6hours for 10 Days. Refills: 0. Unchanged albuterol (albuterol MDI (90 mcg/inh) CFC free inhalation aerosol)1 puff(s) by inhalation every 4 hours as needed as needed for wheezing. clonazePAM (clonazePAM 0.5 mg oral tablet)1 tab(s) by mouth once a day as needed Anxiety. dexAMETHasone (dexAMETHasone 4 mg oral tablet)2 tabs twice a day, the day before chemo.. Refills: 0. diphenhydrAMINE (Magic mouthwash (Oibycnkn-Pmazhv-Nkpjdroaq-Mycostatin))2 teaspoonful(s)swish and swallow q 4 hrs as needed for mouth sores. Do not eat or drink for 30 min after taking.. Refills: 1. FLUoxetine (FLUoxetine 20 mg oral capsule)1 cap by mouth once a day. letrozole (letrozole 2.5 mg oral tablet)1 tab(s) by mouth once a day for 90 Days. Refills: 1. loratadine (Claritin 10 mg oral tablet)1 tab(s) by mouth once a day. ondansetron (ondansetron 4 mg oral tablet)1 tab(s) by mouth every 6 hours. prn nausea. Refills: 2. Follow Up Follow Up with KVNG LONDONO MD Where:[address] [facility] [place] [address]- [phone] Additional Information: Call for appointment Follow Up with ADAN GARCIA APRN-[facility] Where:[address] [facility] [address] [place] [address]- Additional Information: Please call the office to schedule a hospital follow-up appointment. Follow Up with director of online merchandising onc Additional Information: Follow-up with her [employer] oncologist after discharge on 06/03/2024 Follow Up Appointments No qualifying data available. Follow Up Labs/Studies Discharge Labs No Follow-up Labs Discharge Studies No Follow-up Studies Discharge Diet Discharge Diet - Ordered -- Type of Diet: Regular, 05/20/24 14:21:00 EDT Discharge Activity Discharge Activity - Ordered -- Resume your pre-hospitalization activity, 05/20/24 14:21:00 EDT Condition on Discharge Stable Discharge Disposition Home Time Spent More than 30-minute spent in discharge planning Digitally Signed by SANDRA MANUEL MD on 05/20/2024 08:[address] [id number] Hospital Discharge instructions Patient Education 05/20/2024 14:28:03 Acute Back Pain, Adult Acute Back Pain, Adult Acute back pain is sudden and usually short-lived. It is often caused by an injury to the muscles and tissues in the back. The injury may result from: A muscle or ligament getting overstretched or torn (strained). Ligaments are tissues that connect bones to each other. Lifting something improperly can cause a back strain. Wear and tear (degeneration) of the spinal disks. Spinal disks are circular tissue that provides cushioning between the bones of the spine (vertebrae). Twisting motions, such as while playing sports or doing yard work. A hit to the back. Arthritis. You may have a physical exam, lab tests, and imaging tests to find the cause of your pain. Acute back pain usually goes away with rest and home care. Follow these instructions at home: Managing pain, stiffness, and swelling Take xpvn-icw-srgfsop and prescription medicines only as told by your health care provider. Your health care provider may recommend applying ice during the first 24 48 hours after your pain starts. To do this: ?Put ice in a plastic bag. ?Place a towel between your skin and the bag. ?Leave the ice on for 20 minutes, 2 3 times a day. If directed, apply heat to the affected area as often as told by your health care provider. Use theheat source that your health care provider recommends, such as a moist heat pack or a heating pad. ?Place a towel between your skin and the heat source. ?Leave the heat on for 20 30 minutes. ?Remove the heat if your skin turns bright red. This is especially important if you are unable to feel pain, heat, or cold. You have a greater risk of getting burned. Activity Do not stay in bed. Staying in bed for more than 1 2 days can delay your recovery. Sit up and stand up straight. Avoid leaning forward when you sit, or hunching over when you stand. ?If you work at a desk, sit close to it so you do not need to lean over. Keep your chin tucked in. Keep your neck drawn back, and keep your elbows bent at a right angle. Your arms should look like the letter L. ?Sit high and close to the steering wheel when you drive. Add lower back (lumbar) support to your car seat, if needed. Take short walks on even surfaces as soon as you are able. Try to increase the length of time you walk each day. Do not sit, drive, or network administrator one place for more than 30 minutes at a time. Sitting or standing for long periods of time can put stress on your back. Do not drive or use heavy machinery while taking prescription pain medicine. Use proper lifting techniques. When you bend and lift, use positions that put less stress on your back: ?Bend your knees. ?Keep the load close to your body. ?Avoid twisting. Exercise regularly as told by your health care provider. Exercising helps your back heal faster andhelps prevent back injuries by keeping muscles strong and flexible. Work with a physical therapist to make a safe exercise program, as recommended by your health care provider. Do any exercises as told by your physical therapist. Lifestyle Maintain a healthy weight. Extra weight puts stress on your back and makes it difficult to have good posture. Avoid activities or situations that make you feel anxious or stressed. Stress and anxiety increase muscle tension and can make back pain worse. Learn ways to manage anxiety and stress, such as through exercise. General instructions Sleep on a firm mattress in a comfortable position. Try lying on your side with your knees slightlybent. If you lie on your back, put a pillow under your knees. Follow your treatment plan as told by your health care provider. This may include: ?Cognitive or behavioral therapy. ?Acupuncture or massage therapy. ?Meditation or yoga. Contact a health care provider if: You have pain that is not relieved with rest or medicine. You have increasing pain going down into your legs or buttocks. Your pain does not improve after 2 weeks. You have pain at night. You lose weight without trying. You have a fever or chills. Get help right away if: You develop new bowel or bladder control problems. You have unusual weakness or numbness in your arms or legs. You develop nausea or vomiting. You develop abdominal pain. You feel faint. Summary Acute back pain is sudden and usually short-lived. Use proper lifting techniques. When you bend and lift, use positions that put less stress on your back. Take aqvb-gfx-mdfhimq and prescription medicines and apply heat or ice as directed by your health care provider. This information is not intended to replace advice given to you by your health care provider. Make sure you discuss any questions you have with your health care provider. Document Released: 09/02/2006 Document Revised: 12/22/2019 Document Reviewed: 04/16/2018 [employer] Patient Education 2020 [employer] Follow Up Care 05/17/2024 11:51:50 With:KVNG LONDONO MD Address: [address] [place] [address] [phone] When: Unknown Comments:Call for appointment [facility] Address: [address] [place] [address] [address] [place] [address]- When: Unknown Comments:Please call the office to schedule a hospital follow-up appointment. With:director of online merchandising onc Address: When: Unknown Comments:Follow-up with her [employer] oncologist after discharge on 06/03/2024 [facility] 09-04-2024 Note Discharge Instructions Thank you for allowing [facility] to assist you with your healthcare needs. The following is importantdischarge information regarding your hospital visit. Your Care Team ADAN GARCIA Your Diagnosis Carcinoma of ovary, stage 3 Elevated CA-125 Oral thrush What to do next Scheduled Follow-Up Appointments Appointment Type When With Where Contact Information StatusINF/OSP Labwork 06/01/2024 12:00 PM EDT Infusion Therapy Confirmed INF/OSP Labwork 06/03/2024 08:30 AM EDT Infusion Therapy Confirmed SO OV Chemo 06/03/2024 09:00 AM EDT PETER FERRIS [facility] [address] [place] [phone] Confirmed INF Chemo: Infusion 240 min (4 hours) 06/03/2024 09:30 AM EDT Infusion Therapy Confirmed Follow Up Appointments Follow Up with director of online merchandising onc Additional Information: Follow-up with her [employer] oncologist after discharge on 06/03/2024 Follow Up with ADAN GARCIA When:Within 1-2 days Where:[facility] [address] [place] [address]- Additional Information: Please call the office to schedule a hospital follow-up appointment. The Following Activity and Diet Have Been Ordered for You Discharge Activity - Ordered -- Resume your pre-hospitalization activity, 05/20/24 14:21:00 EDT Discharge Diet - Ordered -- Type of Diet: Regular, 05/20/24 14:21:00 EDT The Following Equipment Has Been Ordered for You No qualifying data available. The Following Treatments Have Been Ordered for You Discharge Labs No qualifying data available. Discharge Radiology No qualifying data available. Other Therapies No qualifying data available. Post Acute Orders No qualifying data available. Someone Will Contact You Regarding These Home Health Referrals No home referrals have been ordered for you. No one will call you. Allergies Taxol(Severe) anaphylaxis Medications Please ask your primary doctor or pharmacist before taking any other medication not listed, including over the counter drugs, herbal medications, vitamins and or supplements as they may interact withur home medications. What How Much When Why Instructions Last Dose New amoxicillin (amoxicillin 500 mg oral capsule) 1 cap by mouth Three (3) times a day Duration: 5 Days Pickup at [facility] New dicyclomine (dicyclomine 20 mg oral tablet) 1 tab(s) by mouth Four (4) times a day as needed for abdominal discomfort Duration: 14 Days Pickup at [facility] New loperamide (Imodium A-D 2 mg oral tablet) 2 Milligram by mouth Three (3) times a day as needed for Diarrhea Duration: 7 Days Pickup at [facility] New nystatin (nystatin 100,000 units/ mL oral suspension) 5 Milliliter Swish in mouth and swallow Every 6 hours Duration: 10 Days Pickup at [facility] Unchanged albuterol (albuterol MDI (90 mcg/ inh) CFC free inhalation aerosol) 1 puff(s) by inhalation Every 4 hours as needed for as needed for wheezing Unchanged clonazePAM (clonazePAM 0.5 mg oral tablet) 1 tab(s) by mouth Once a day as needed for Anxiety Unchanged dexAMETHasone (dexAMETHasone 4 mg oral tablet) See instructions 2 tabs twice a day, the day before chemo. Unchanged diphenhydrAMINE (Magic mouthwash (Bwzfgooi-Vuwgcf-Agqchsutk-Mycostatin)) See instructions 2 teaspoonful(s)swish and swallow q 4 hrs as needed for mouth sores. Do not eat or drink for 30 minafter taking. Unchanged FLUoxetine (FLUoxetine 20 mg oral capsule) 1 cap by mouth Once a day Unchanged letrozole (letrozole 2.5 mg oral tablet) 1 tab(s) by mouth Once a day Carcinoma of ovary, stage 3 Elevated CA-125 Duration: 90 Days Unchanged loratadine (Claritin 10 mg oral tablet) 1 tab(s) by mouth Once a day Unchanged ondansetron (ondansetron 4 mg oral tablet) 1 tab(s) by mouth Every 6 hours prn nausea Pharmacy Information [facility]: [address] [place] [address] [phone] Please take this list to your next doctor s visit. Bring all medications you take, including over the counter medications, herbals and other supplements with you to your doctor s visit. Patients and families are reminded to discard old lists and to update any records with all medication providers or retail pharmacies. Education Materials Acute Back Pain, Adult Acute back pain is sudden and usually short-lived. It is often caused by an injury to the muscles and tissues in the back. The injury may result from: A muscle or ligament getting overstretched or torn (strained). Ligaments are tissues that connect bones to each other. Lifting something improperly can cause a back strain. Wear and tear (degeneration) of the spinal disks. Spinal disks are circular tissue that provides cushioning between the bones of the spine (vertebrae). Twisting motions, such as while playing sports or doing yard work. A hit to the back. Arthritis. You may have a physical exam, lab tests, and imaging tests to find the cause of your pain. Acute back pain usually goes away with rest and home care. Follow these instructions at home: Managing pain, stiffness, and swelling Take qcps-pwh-oqshljx and prescription medicines only as told by your health care provider. Your health care provider may recommend applying ice during the first 24 48 hours after your pain starts. To do this: ? Put ice in a plastic bag. ? Place a towel between your skin and the bag. ? Leave the ice on for 20 minutes, 2 3 times a day. If directed, apply heat to the affected area as often as told by your health care provider. Use theheat source that your health care provider recommends, such as a moist heat pack or a heating pad. ? Place a towel between your skin and the heat source. ? Leave the heat on for 20 30 minutes. ? Remove the heat if your skin turns bright red. This is especially important if you are unable to feel pain, heat, or cold. You have a greater risk of getting burned. Activity Do not stay in bed. Staying in bed for more than 1 2 days can delay your recovery. Sit up and stand up straight. Avoid leaning forward when you sit, or hunching over when you stand. ? If you work at a desk, sit close to it so you do not need to lean over. Keep your chin tucked in. Keep your neck drawn back, and keep your elbows bent at a right angle. Your arms should look like theletter L. ? Sit high and close to the steering wheel when you drive. Add lower back (lumbar) support to your car seat, if needed. Take short walks on even surfaces as soon as you are able. Try to increase the length of time you walk each day. Do not sit, drive, or network administrator one place for more than 30 minutes at a time. Sitting or standing for long periods of time can put stress on your back. Do not drive or use heavy machinery while taking prescription pain medicine. Use proper lifting techniques. When you bend and lift, use positions that put less stress on your back: ? Bend your knees. ? Keep the load close to your body. ? Avoid twisting. Exercise regularly as told by your health care provider. Exercising helps your back heal faster andhelps prevent back injuries by keeping muscles strong and flexible. Work with a physical therapist to make a safe exercise program, as recommended by your health care provider. Do any exercises as told by your physical therapist. Lifestyle Maintain a healthy weight. Extra weight puts stress on your back and makes it difficult to have good posture. Avoid activities or situations that make you feel anxious or stressed. Stress and anxiety increase muscle tension and can make back pain worse. Learn ways to manage anxiety and stress, such as through exercise. General instructions Sleep on a firm mattress in a comfortable position. Try lying on your side with your knees slightlybent. If you lie on your back, put a pillow under your knees. Follow your treatment plan as told by your health care provider. This may include: ? Cognitive or behavioral therapy. ? Acupuncture or massage therapy. ? Meditation or yoga. Contact a health care provider if: You have pain that is not relieved with rest or medicine. You have increasing pain going down into your legs or buttocks. Your pain does not improve after 2 weeks. You have pain at night. You lose weight without trying. You have a fever or chills. Get help right away if: You develop new bowel or bladder control problems. You have unusual weakness or numbness in your arms or legs. You develop nausea or vomiting. You develop abdominal pain. You feel faint. Summary Acute back pain is sudden and usually short-lived. Use proper lifting techniques. When you bend and lift, use positions that put less stress on your back. Take mwvk-vxn-selwypq and prescription medicines and apply heat or ice as directed by your health care provider. This information is not intended to replace advice given to you by your health care provider. Make sure you discuss any questions you have with your health care provider. Document Released: 09/02/2006 Document Revised: 12/22/2019 Document Reviewed: 04/16/2018 Elsevier Patient Education 2020 [employer] Additional Information VACCINATE! IT SAVES LIVES! Members of the community who have not yet received the COVID-19 vaccine and would like to receive it can visit one of [facility] vaccine clinics. There are many vaccine clinic locations within the [facility]. For locations and available times, please visit https://gettheshot.coronavirus.[place].gov/. It is important to note that some COVID mobile vaccine clinics are held outdoors and may be canceled in rainy or stormy conditions. To learn more about pediatric vaccinations (ages 5-11), we invite you to visit the [facility] webpage. [email or web address]/[email or web address] [email or web address] learn more about the COVID-19 vaccine, we invite you to visit the CDC website for a list of frequently asked questions.https://www.cdc.gov/coronavirus/2019-ncov/vaccines/faq.html [employer] [facility] Patient Portal Access Instructions: Stay connected with your healthcare team and access your personal medical information anytime with the [facility] [facility] Patient Portal. Please follow the directions below to create your [employer] [facility] account: 1.Access the email account you provided upon registration to the hospital/physician office.2.Look for an invitation email from [facility].3.Open the email and access the invitation link: AcceptInvitation to [facility] [facility] [facility].4.Fill in the required schneider to create your account. To access your account, visit [email or web address]. Click the blue button labeled Access Patient Portal and then log in with the username and password that you created in the steps above. You will be able to view your test results, lab results, a summary of your visits, upcoming appointments and more. There is also a convenient messaging option where you can send secure messages to your p rovider. In addition, you will have the ability to download any documents or summaries to your computer and/or send the information securely to a physician. Remember that your healthcare information is confidential, so carefully consider who you will allowto register on the [facility] Patient Portal for access to your information. You can also access the [facility] Patient Portal on the [facility] roma. Simply click on Patient Portal and then log into your account. If you would like to receive a full copy of your medical records, please contact the [facility] Medical Records Department by calling [phone], Saturday through Saturday between 8 a.m. and 4:30 p.m. HOW TO SAFELY DISPOSE OF PRESCRIPTION MEDICATIONS Please use one of the following methods to safely dispose of your unused medications. 1.Use a drug disposal kit: the drug disposal pouch allows you to safely discard your old and unuseddrugs. Ask your nurse to give you one when you are discharged.2.Visit a local take-back location: Many local pharmacies and police departments have programs that collect old and unwanted prescriptiondrugs. Call your local pharmacy or go to http://[employer]/3U5Df4x to find one close to you.3.Make use of household items: Use cat litter or old coffee grounds to dispose medications if other options arenot available. Mix your drugs with these household products, seal them in an airtight container andthrow it into the garbage. Call [facility]: [phone] to be sure your drugs can be disposed of in this way. Some medicines may require a different approach.4.Never flush your medications down the toilet. IF YOU HAVE BEEN PRESCRIBED AN OPIOID FOR PAIN If you have been prescribed an opioid (such as hydrocodone, oxycodone or morphine), it is critical to understand the possible side effects and risks of opioid pain medications. Even when taken as directed, opioids can have several side effects including: Tolerance, meaning you might need to take more of a medication for the same pain relief. Nausea, vomiting and/or constipation. Sleepiness, dizziness, dry mouth, confusion, depression or itching. Physical dependence, meaning you have withdrawal symptoms when a medication is stopped, can develop within a few days. KNOW YOUR RESPONSIBILITIES It is important to know exactly how much and how often to take the opioid pain medications you are prescribed. Never take opioids in higher amounts or more often than prescribed. Do not combine opioids with alcohol or other drugs that cause drowsiness, such as benzodiazepines, also known as benzos, including diazepam and alprazolam, muscle relaxants or sleep aids. Never sell or share prescription opioids. This is illegal. Store opioids in a secure place and out of reach of others (including children, family, friends and visitors). The last page of this document has been signed and retained as a CHART COPY. Signatures Patient Education Materials Acute Back Pain, Adult Medication Leaflets My discharge plan and instructions have been reviewed and explained to me and I,JESSICA ALARCON understand my current condition and have read and understand these discharge instructions. I have received a written copy of the plan/instructions. If I have questions, I am aware that I should contact my doctor. 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 Note. MICRO - Microbiology PROCEDURE: Urine Culture [*1] SOURCE: Urine, Clean Catch BODY SITE: COLLECTED DATE/TIME: 05/18/2024 07:18 EDT RECEIVED DATE/TIME: 05/18/2024 08:32 EDT START DATE/TIME: 05/18/2024 08:32 EDT FREE TEXT SOURCE: AMENDED REPORTS Amended Report [] Verified Date/Time/Personnel: 05/20/2024 08:59 EDT Updated Report: >100,000 cfu/ml Multiple bacterial morphotypes present. Probable Contamination. Suggest recollection if clinically indicated. Including >100,000 cfu/ml Group B Beta Hemolytic Strep (Strep agalactiae) Sensitivity testing is not recommended for one of the following reasons: 1. Established susceptibility patterns are available or 2. Interpretative criteria are not available. FINAL REPORTS Final Report [] Verified Date/Time/Personnel: 05/20/2024 07:37 EDT 50,000 - 100,000 cfu/ml Multiple bacterial morphotypes present. Probable Contamination. Suggest recollection if clinically indicated. Including Group B Beta Hemolytic Strep (Strep agalactiae) Sensitivity testing is not recommended for one of the following reasons: 1. Established susceptibility patterns are available or 2. Interpretative criteria are not available. PRELIMINARY REPORTS Preliminary Report [] Verified Date/Time/Personnel: 05/19/2024 10:58 EDT Culture results pending. Performing Locations *1: This test was performed at: [facility], [address] [place] [address], [id number] , [facility] ([id number] Note Date of Service 05/20/2024 Subjective Patient seen and examined this morning with senior resident Dr. Blunt. She is resting comfortably. Patient says she is feeling well this morning would like to go home. She denies nausea, abdominal pain, vomiting, chest pain, or shortness of breath. Is voiding spontaneously. Objective Vitals and Measurements T: 36.8 C (Oral) TMIN: 36.7 C (Oral) TMAX: 36.8 C (Oral) HR: 79 RR: 18 BP: 119/73 SpO2: 96% Intake and Output 7AM Yesterday to 7AM Today Intake and Output (Last 24 hours) Intake Oral Intake 120.00 Output Stool Count 0.00 Urine Count 1.00 Total Summary Total Intake 120.00 Total Output 0.00 Fluid Balance 120.00 Physical Exam Vitals Signs(Last 24 hrs)__ Last Charted Minimum Maximum Temp 36.8(MAY 19 22:21) 36.8(MAY 19 22:21) 36.7(MAY 19 08:14) Heart Rate 74(MAY 19 12:16) 72(MAY 19 08:14) 74(MAY 19 12:16) SBP 119(MAY 19 22:21) 115(MAY 19 12:16) 123(MAY 19 08:14) DBP 73(MAY 19 22:21) 72(MAY 19 17:32) 82(MAY 19 08:14) General: A&Ox3. NAD. Cardiovascular: Regular rate ad rhythm Pulmonary: Unlabored, even chest rise. CTA, no wheezes or rhonchi Abdominal: Soft, nontender. +BS Extremities: No edema. No tenderness to palpation. Weight Dosing Weight: 125 kg (05/17/24) Dosing Weight: 125 kg (05/17/24) Medications Medications (22) Active Scheduled: (8) cyclobenzaprine 5 mg tablet 5 mg 1 tab(s), Oral, TID dicyclomine 10 mg capsule 20 mg 2 cap(s), Oral, QID fluoxetine 20 mg Capsule 20 mg 1 cap(s), Oral, qDay heparin 5,000 units/mL (1 mL) vial 5,000 unit(s) 1 mL, Subcutaneous, q8h letrozole 2.5 mg tablet 2.5 mg 1 tab(s), Oral, qDay loratadine 10 mg Tablet 10 mg 1 tab(s), Oral, qDay nystatin susp 100,000 units/mL 5 mL UD 500,000 unit(s) 5 mL, Swish & Swallow, q6h ondansetron 2 mg/ 1 mL 2 mL INJ 4 mg 2 mL, IV Push, q4h Continuous: (0) PRN: (14) acetaminophen 325 mg Tablet 650 mg 2 tab(s), Oral, q6hr acetaminophen 325 mg Tablet 650 mg 2 tab(s), Oral, q4h acetaminophen 650 mg Suppository 650 mg 1 supp, Rectal, q4h Al hydrox/Mg hydrox/simethicone 200-200-20 mg/5 mL Susp UD 30 mL, Oral, q2h albuterol 0.083% Soln UD (2.5mg/3 mL) 2.5 mg 3 mL, Inhalation, q6hRT bisacodyl 5 mg EC tablet 10 mg 2 tab(s), Oral, qDay clonazePAM 0.5 mg tablet 0.5 mg 1 tab(s), Oral, qDay dextrose 50% Solution Disp syringe 50 mL 12.5 gram(s) 25 mL, IV Push, AsDirected diphenhy/antacid/lidocaine/nystatin 240 mL CMPD 10 mg, Oral, QID docusate-senna (Senokot S) 50 mg-8.6 mg Tablet 1 tab(s), Oral, BID melatonin 3 mg tablet 3 mg 1 tab(s), Oral, qHS morphine 2 mg/mL 1 mL syringe 2 mg 1 mL, IV Push, q3h oxycodone 5 mg tablet (immediate release) 5 mg 1 tab(s), Oral, q4h promethazine 25 mg Tablet 25 mg 1 tab(s), Oral, q6h Lab Results 05/20 04:15 Glucose Level: 97 Sodium Level: 143 Potassium Level: 3.6 BUN: 8.0 Creatinine Lvl (s): 0.63 05/19 04:45 WBC: 1.2 L Hgb: 9.9 L Hct: 29.0 L Platelet: 122 L Glucose Level: 104 Sodium Level: 143 Potassium Level: 3.8 BUN: 12.0 Creatinine Lvl (s): 0.64 Imaging Results and Diagnostics CT Abd/Pelvis w/ IV Contrast Only Result Date: May 17, 2024 Verified By: MCKINLEY VERAS DO CLINICAL STATEMENT: IMPRESSION: 1. Small to moderate amount of ascites, of indeterminate etiology. Nodefinite peritoneal/omental nodularity. 2. Stable solitary homogeneous 1.2 cm enhancing mass in the liver. Findinglikely represents a benign flash fill hemangioma, but consider MRI livergiven patient's cancer history. 3. Stable wall calcifications versus wall hyperenhancement of the sigmoidcolon. No bowel obstruction. CT Angiography Chest w/ Contrast Result Date: May 17, 2024 Verified By: MCKINLEY VERAS DO CLINICAL STATEMENT: IMPRESSION: No evidence of pulmonary embolus. XR Chest 2 Views Result Date: May 17, 2024 Verified By: MCKINLEY VERAS DO CLINICAL STATEMENT: IMPRESSION: No evidence of an acute cardiopulmonary process. EKG No qualifying data available. 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 Patient admitted under Hospitalist for the primary management of her N/V/D. [facility] Sales Representative Onc was consulted in the setting of patient's recent cancer diagnosis and chemotherapy regimen. >> Chemotherapy related side effects: Nausea, vomiting, abdominal pain, diarrhea - No episodes of N/V overnight. Patients reports she feeling well and would like to go home. - Zofran 4 mg/qhr, Bentyl QID, and Protonix scheudled for symptom control - Pain control: Flexeril, Morphine and Tylenol per primary team, Oxycodone ordered as an alternative option. - C. diff PCR and Shiga toxin negative - Patient tolerating PO intake - ANC within normal limits, no signs of neutropenia. 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 The patient had a severe paclitaxel hypersensitivity reaction with cycle 1. The patient returned for carboplatin on day 2 of herfirst cycle. She received this without incident. For cycle 2 the patient received carboplatin and docetaxel. She developed her symptoms approximately 48 hours after receiving her chemotherapy. Taken as a whole this patient is likely having a significant delayed reaction to her docetaxel. Bowel frequency is a common side effect after taxane therapy which usually last for 2 to 3 days. This patient may have a more prominent taxane related GI toxicity. -Discussed w/ her subsequent cycles of chemotherapy to be administered as carboplatin alone or carboplatin plus a second chemotherapeutic agent (nontaxane). - CA-125: 181 > 446 - Continue Letrozole, was started given rising Ca-125 level >>Anxiety -Home Fluoxetine and Clonazepam continued >> Chest pain (Resolved) - - Negative troponins x 4 with unremarkable EKG for ischemia. ProBNP within normal limits - S/p loading dose ASA, statin -- discontinued - Elevated D-Dimer, CTA chest ordered and negative for PE - s/p Cardio consult; rec appreciated. Cardio reports Chest pain unlikely to be cardiac in nature. - Echocardiogram reviewed with attending showing preserved EF and no obvious RWMA - no further cardiac workup needed at this time If continued symptoms upon discharge may benefit from outpatient cardiology follow-up. >> Transaminitis - Likely chemotherapy related adverse effects - On admission AST/ALT 76/89 downtrended this morning to AST/ALT 53/73 (05/19) -Statin discontinued and can be restarted in outpatient setting per Cardio, with management defer to PCP >>Dispo: AF, VSS, patient is clinically improved and feels well enough for discharge home today. Will re-evaluate patient in afternoon with Dr. Faulkner, patient patient not already discharged prior. Patient to follow up with [facility] in office upon discharge on 06/03/24. Digitally Signed by GLORIA VÁSQUEZ MD on 05/20/2024 07:[address] [facility] [id number] Note Date of Service 05/20/2024 Subjective Patient seen and examined this morning with senior resident Dr. Blunt. She is resting comfortably. Patient says she is feeling well this morning would like to go home. She denies nausea, abdominal pain, vomiting, chest pain, or shortness of breath. Is voiding spontaneously. Objective Vitals and Measurements T: 36.8 C (Oral) TMIN: 36.7 C (Oral) TMAX: 36.8 C (Oral) HR: 79 RR: 18 BP: 119/73 SpO2: 96% Intake and Output 7AM Yesterday to 7AM Today Intake and Output (Last 24 hours) Intake Oral Intake 120.00 Output Stool Count 0.00 Urine Count 1.00 Total Summary Total Intake 120.00 Total Output 0.00 Fluid Balance 120.00 Physical Exam Vitals Signs(Last 24 hrs)__ Last Charted Minimum Maximum Temp 36.8(MAY 19 22:21) 36.8(MAY 19 22:21) 36.7(MAY 19 08:14) Heart Rate 74(MAY 19 12:16) 72(MAY 19 08:14) 74(MAY 19 12:16) SBP 119(MAY 19 22:21) 115(MAY 19 12:16) 123(MAY 19 08:14) DBP 73(MAY 19 22:21) 72(MAY 19 17:32) 82(MAY 19 08:14) General: A&Ox3. NAD. Cardiovascular: Regular rate ad rhythm Pulmonary: Unlabored, even chest rise. CTA, no wheezes or rhonchi Abdominal: Soft, nontender. +BS Extremities: No edema. No tenderness to palpation. Weight Dosing Weight: 125 kg (05/17/24) Dosing Weight: 125 kg (05/17/24) Medications Medications (22) Active Scheduled: (8) cyclobenzaprine 5 mg tablet 5 mg 1 tab(s), Oral, TID dicyclomine 10 mg capsule 20 mg 2 cap(s), Oral, QID fluoxetine 20 mg Capsule 20 mg 1 cap(s), Oral, qDay heparin 5,000 units/mL (1 mL) vial 5,000 unit(s) 1 mL, Subcutaneous, q8h letrozole 2.5 mg tablet 2.5 mg 1 tab(s), Oral, qDay loratadine 10 mg Tablet 10 mg 1 tab(s), Oral, qDay nystatin susp 100,000 units/mL 5 mL UD 500,000 unit(s) 5 mL, Swish & Swallow, q6h ondansetron 2 mg/ 1 mL 2 mL INJ 4 mg 2 mL, IV Push, q4h Continuous: (0) PRN: (14) acetaminophen 325 mg Tablet 650 mg 2 tab(s), Oral, q6hr acetaminophen 325 mg Tablet 650 mg 2 tab(s), Oral, q4h acetaminophen 650 mg Suppository 650 mg 1 supp, Rectal, q4h Al hydrox/Mg hydrox/simethicone 200-200-20 mg/5 mL Susp UD 30 mL, Oral, q2h albuterol 0.083% Soln UD (2.5mg/3 mL) 2.5 mg 3 mL, Inhalation, q6hRT bisacodyl 5 mg EC tablet 10 mg 2 tab(s), Oral, qDay clonazePAM 0.5 mg tablet 0.5 mg 1 tab(s), Oral, qDay dextrose 50% Solution Disp syringe 50 mL 12.5 gram(s) 25 mL, IV Push, AsDirected diphenhy/antacid/lidocaine/nystatin 240 mL CMPD 10 mg, Oral, QID docusate-senna (Senokot S) 50 mg-8.6 mg Tablet 1 tab(s), Oral, BID melatonin 3 mg tablet 3 mg 1 tab(s), Oral, qHS morphine 2 mg/mL 1 mL syringe 2 mg 1 mL, IV Push, q3h oxycodone 5 mg tablet (immediate release) 5 mg 1 tab(s), Oral, q4h promethazine 25 mg Tablet 25 mg 1 tab(s), Oral, q6h Lab Results 05/20 04:15 Glucose Level: 97 Sodium Level: 143 Potassium Level: 3.6 BUN: 8.0 Creatinine Lvl (s): 0.63 05/19 04:45 WBC: 1.2 L Hgb: 9.9 L Hct: 29.0 L Platelet: 122 L Glucose Level: 104 Sodium Level: 143 Potassium Level: 3.8 BUN: 12.0 Creatinine Lvl (s): 0.64 Imaging Results and Diagnostics CT Abd/Pelvis w/ IV Contrast Only Result Date: May 17, 2024 Verified By: MCKINLEY VERAS DO CLINICAL STATEMENT: IMPRESSION: 1. Small to moderate amount of ascites, of indeterminate etiology. Nodefinite peritoneal/omental nodularity. 2. Stable solitary homogeneous 1.2 cm enhancing mass in the liver. Findinglikely represents a benign flash fill hemangioma, but consider MRI livergiven patient's cancer history. 3. Stable wall calcifications versus wall hyperenhancement of the sigmoidcolon. No bowel obstruction. CT Angiography Chest w/ Contrast Result Date: May 17, 2024 Verified By: MCKINLEY VERAS DO CLINICAL STATEMENT: IMPRESSION: No evidence of pulmonary embolus. XR Chest 2 Views Result Date: May 17, 2024 Verified By: MCKINLEY VERAS DO CLINICAL STATEMENT: IMPRESSION: No evidence of an acute cardiopulmonary process. EKG No qualifying data available. 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 Patient admitted under Hospitalist for the primary management of her N/V/D. Livestock Sales Representative Onc was consulted in the setting of patient's recent cancer diagnosis and chemotherapy regimen. >> Chemotherapy related side effects: Nausea, vomiting, abdominal pain, diarrhea - No episodes of N/V overnight. Patients reports she feeling well and would like to go home. - Zofran 4 mg/qhr, Bentyl QID, and Protonix scheudled for symptom control - Pain control: Flexeril, Morphine and Tylenol per primary team, Oxycodone ordered as an alternative option. - C. diff PCR and Shiga toxin negative - Patient tolerating PO intake - ANC within normal limits, no signs of neutropenia. 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 The patient had a severe paclitaxel hypersensitivity reaction with cycle 1. The patient returned for carboplatin on day 2 of herfirst cycle. She received this without incident. For cycle 2 the patient received carboplatin and docetaxel. She developed her symptoms approximately 48 hours after receiving her chemotherapy. Taken as a whole this patient is likely having a significant delayed reaction to her docetaxel. Bowel frequency is a common side effect after taxane therapy which usually last for 2 to 3 days. This patient may have a more prominent taxane related GI toxicity. -Discussed w/ her subsequent cycles of chemotherapy to be administered as carboplatin alone or carboplatin plus a second chemotherapeutic agent (nontaxane). - CA-125: 181 > 446 - Continue Letrozole, was started given rising Ca-125 level >>Anxiety -Home Fluoxetine and Clonazepam continued >> Chest pain (Resolved) - - Negative troponins x 4 with unremarkable EKG for ischemia. ProBNP within normal limits - S/p loading dose ASA, statin -- discontinued - Elevated D-Dimer, CTA chest ordered and negative for PE - s/p Cardio consult; rec appreciated. Cardio reports Chest pain unlikely to be cardiac in nature. - Echocardiogram reviewed with attending showing preserved EF and no obvious RWMA - no further cardiac workup needed at this time If continued symptoms upon discharge may benefit from outpatient cardiology follow-up. >> Transaminitis - Likely chemotherapy related adverse effects - On admission AST/ALT 76/89 downtrended this morning to AST/ALT 53/73 (05/19) -Statin discontinued and can be restarted in outpatient setting per Cardio, with management defer to PCP >>Dispo: AF, VSS, patient is clinically improved and feels well enough for discharge home today. Will re-evaluate patient in afternoon with Dr. Faulkner, patient patient not already discharged prior. Patient to follow up with [facility] in office upon discharge on 06/03/24. Digitally Signed by GLORIA VÁSQUEZ MD on 05/20/2024 07:[address] [facility] [id number] Note Date of Service 05/19/2024 Chief Complaint 43-year-old female with stage IIIb low-grade serous ovarian tumor status post H BSO, lymph node dissection, omentectomy. Patient finished second cycle of chemotherapy with carboplatin and docetaxel. Presented with likely adverse effects including nausea, vomiting, and loose stools with abdominal cramping. Being followed and mostly managed by [facility]. Subjective Seen in the room with Dr. Faulkner and [facility] service. Patient doing much better today and able to eat although after eating she says she still has abdominal cramping and loose stool. Not drinking as much as she thinks she should. Plan of care after discussion with patient and was to stop IV fluids, downgrade from telemetry, and see if patient could tolerate enough p.o. liquids with the current symptom based managementto feel comfortable going home. Objective Vitals and Measurements T: 36.8 C (Oral) TMIN: 36.7 C (Oral) TMAX: 37.1 C (Oral) HR: 74 (Monitored) RR: 18 BP: 115/76 SpO2:97% Intake and Output 7AM Yesterday to 7AM Today Intake and Output (Last 24 hours) Intake Oral Intake 480.00 Administration Information 800.00 Output Stool Count 1.00 Urine Count 4.00 Total Summary Total Intake 1280.00 Total Output 0.00 Fluid Balance 1280.00 Physical Exam Exam: Awake and alert, slightly washed out but no acute distress CVS: regular, no murmur Lungs: clear to auscultation Abdomen: soft, non distended, no guarding, much more comfortable exam in upper abdomen today Extremities: No edema Weight Dosing Weight: 125 kg (05/17/24) Dosing Weight: 125 kg (05/17/24) Medications Medications (22) Active Scheduled: (8) cyclobenzaprine 5 mg tablet 5 mg 1 tab(s), Oral, TID dicyclomine 10 mg capsule 20 mg 2 cap(s), Oral, QID fluoxetine 20 mg Capsule 20 mg 1 cap(s), Oral, qDay heparin 5,000 units/mL (1 mL) vial 5,000 unit(s) 1 mL, Subcutaneous, q8h letrozole 2.5 mg tablet 2.5 mg 1 tab(s), Oral, qDay loratadine 10 mg Tablet 10 mg 1 tab(s), Oral, qDay nystatin susp 100,000 units/mL 5 mL UD 500,000 unit(s) 5 mL, Swish & Swallow, q6h ondansetron 2 mg/ 1 mL 2 mL INJ 4 mg 2 mL, IV Push, q4h Continuous: (0) PRN: (14) acetaminophen 325 mg Tablet 650 mg 2 tab(s), Oral, q6hr acetaminophen 325 mg Tablet 650 mg 2 tab(s), Oral, q4h acetaminophen 650 mg Suppository 650 mg 1 supp, Rectal, q4h Al hydrox/Mg hydrox/simethicone 200-200-20 mg/5 mL Susp UD 30 mL, Oral, q2h albuterol 0.083% Soln UD (2.5mg/3 mL) 2.5 mg 3 mL, Inhalation, q6hRT bisacodyl 5 mg EC tablet 10 mg 2 tab(s), Oral, qDay clonazePAM 0.5 mg tablet 0.5 mg 1 tab(s), Oral, qDay dextrose 50% Solution Disp syringe 50 mL 12.5 gram(s) 25 mL, IV Push, AsDirected diphenhy/antacid/lidocaine/nystatin 240 mL CMPD 10 mg, Oral, QID docusate-senna (Senokot S) 50 mg-8.6 mg Tablet 1 tab(s), Oral, BID melatonin 3 mg tablet 3 mg 1 tab(s), Oral, qHS morphine 2 mg/mL 1 mL syringe 2 mg 1 mL, IV Push, q3h oxycodone 5 mg tablet (immediate release) 5 mg 1 tab(s), Oral, q4h promethazine 25 mg Tablet 25 mg 1 tab(s), Oral, q6h Lab Results 05/19 04:45 WBC: 1.2 L Hgb: 9.9 L Hct: 29.0 L Platelet: 122 L Glucose Level: 104 Sodium Level: 143 Potassium Level: 3.8 BUN: 12.0 Creatinine Lvl (s): 0.64 Labs reviewed EKG No qualifying data available. Assessment/Plan Carcinoma of ovary, stage 3 Elevated CA-125 Oral thrush Nausea, vomiting, and abdominal cramping with diarrhea which patient stated started soon after her second chemotherapy dose. Patient with stage IIIb low- grade serous ovarian cancer. [facility] help greatly appreciated. At this time mostly treating with conservative symptomatic care. No infection seen on workup, C. difficile negative. Patient now with dosed Zofran and Bentyl. As mentioned stopping IV fluids to see if patient can tolerate increasing oral liquid intake. If she is successful will be discharged home tomorrow. Patient also complained of chest pain on admission. Started on aspirin and Lipitor but these will be stopped today as might exacerbate patient's current symptoms. Seen by cardiology and troponins negative, EKG unremarkable for ischemia, and echocardiogram showed preserved EF and no wall motion abnor malities. No chest pain at all today. Patient's urinalysis shows 5-10 white cells and 3+ bacteria but may not be a clean sample. No urineculture done. I have ordered a urine culture and currently is reporting is negative. Hold antibiotics at this time. If patient is able to take p.o. anticipate discharge tomorrow. Orders: .Morphology, Next AM Draw (one day only), Blood, Once, Preferred Lab: [facility], Stop date 05/19/24 5:05:00 EDT, [id number] Admit to Inpatient, 05/19/24 8:04:00 EDT, Level of Care: Stepdown with monitor, Reason for Admission: See History & Physical, Expected Length of Stay: More Than Two Midnights, I certify that hospital inpatient services are reasonable and necessary, and appropriately prov... Basic Metabolic Panel(BMP), 05/20/24 5:00:00 EDT, Next AM Draw (one day only), Blood, Once, Preferred Lab: [facility], Stop date 05/20/24 5:00:00 EDT Environmental/Protective Precautions, 05/19/24 17:07:00 EDT, Constant Order Magnesium Level, 05/20/24 5:01:00 EDT, Next AM Draw (one day only), Blood, Once, Preferred Lab: [facility], Stop date 05/20/24 5:01:00 EDT Telemetry Monitoring, 05/19/24 8:04:57 EDT, Constant order Transfer/Change in Level of Care, 05/19/24 12:33:00 EDT, Level of Care: Regular floor, Medication Review: I have assessed all medications Urine Culture(Culture Urine), 05/18/24 7:18:00 EDT, Routine, Urine, Clean Catch, Stop date 247:18:00 EDT, Nurse collect, Preferred Lab: [facility] Digitally Signed by PORSHA LAKE MD on 05/19/2024 06:[address] [facility] [id number] Note Date of Service 05/17/24 Chief Complaint Nausea, vomiting, diarrhea, abdominal pain Subjective 43yo female presented to ER due to nausea, vomiting, inability to tolerate PO intake, abdominal pain in the setting of vomiting, and chest pain. Patient has had 2 cycles of chemo. First cycle she had an allergic reaction to taxol, so she was switched to carboplatin / docetaxel which she received on 05/13/24. Since that time she has had the above symptoms, not relieved by her home medications. She is complicated by h/o stage IIIB low grade serous carcinoma of the ovary. Treated surgically with RA-TLH, BSO, pelvic lymph node dissection and omentectomy in 03/2024. Ca-125: 181 on 04/20/2024, 446 on 05/11/2024. As was increasing, was started on letrozole therapy. TEMPUS from 04/25/2024 shows no actionable mutations. In the ER, she received IVF, Zofran which did not lead to symptom improvement. Labs obtained overall showing transaminitis but otherwise normal. Imaging performed with CT A/P evidence of small amountascites, no obvious omental abnormalities and a 1cm likely benign liver lesion (recommend MRI follow-up). Decision was made to admit her to hospitalist service for symptom control. Objective Vitals and Measurements T: 36.3 C (Temporal Artery) HR: 82 (Monitored) RR: 22 BP: 115/71 SpO2: 95% WT: 125 kg Intake and Output 7AM Yesterday to 7AM Today Intake and Output (Last 24 hours) Intake Output Total Summary Total Intake 0.00 Total Output 0.00 Fluid Balance 0.00 Physical Exam Gen: Alert, in no acute distress CV: regular rate/rhythm, no mrg Resp: CTAB, no wheezes or rales Abdom: soft, mildly tender to palpation, distractible, nondistended. +BS. Extrem: no edema/erythema/tenderness, negative Lynn's sign Weight Dosing Weight: 125 kg (05/17/24) Medications Medications (21) Active Scheduled: (7) aspirin 81 mg Chewable 81 mg 1 tab(s), Oral, Daily atorvastatin 40 mg tablet 40 mg 1 tab(s), Oral, Daily cyclobenzaprine 5 mg tablet 5 mg 1 tab(s), Oral, TID fluoxetine 20 mg Capsule 20 mg 1 cap(s), Oral, qDay heparin 5,000 units/mL (1 mL) vial 5,000 unit(s) 1 mL, Subcutaneous, q8h letrozole 2.5 mg tablet 2.5 mg 1 tab(s), Oral, qDay loratadine 10 mg Tablet 10 mg 1 tab(s), Oral, qDay Continuous: (1) NS (0.9% nacl) 1,000 mL 1,000 mL, Intravenous, 100 mL/hr PRN: (13) acetaminophen 325 mg Tablet 650 mg 2 tab(s), Oral, q6hr acetaminophen 325 mg Tablet 650 mg 2 tab(s), Oral, q4h acetaminophen 650 mg Suppository 650 mg 1 supp, Rectal, q4h Al hydrox/Mg hydrox/simethicone 200-200-20 mg/5 mL Susp UD 30 mL, Oral, q2h albuterol 2.5 mg, Inhalation, q6hRT bisacodyl 5 mg EC tablet 10 mg 2 tab(s), Oral, qDay clonazePAM 0.5 mg tablet 0.5 mg 1 tab(s), Oral, qDay dextrose 50% Solution Disp syringe 50 mL 12.5 gram(s) 25 mL, IV Push, AsDirected diphenhy/antacid/lidocaine/nystatin 240 mL CMPD 10 mg, Oral, QID docusate-senna (Senokot S) 50 mg-8.6 mg Tablet 1 tab(s), Oral, BID melatonin 3 mg tablet 3 mg 1 tab(s), Oral, qHS morphine 2 mg/mL 1 mL syringe 2 mg 1 mL, IV Push, q3h ondansetron 2 mg/ 1 mL 2 mL INJ 4 mg 2 mL, IV Push, q4h Lab Results 05/17 12:23 WBC: 3.5 L Hgb: 12.8 Hct: 37.3 Platelet: 151 Neutrophil %: 85.9 H Glucose Level: 129 H Sodium Level: 140 Potassium Level: 3.8 BUN: 15.0 Creatinine Lvl (s): 0.61 Imaging Results and Diagnostics 05/17 CXR: no acute process 05/17 CT A/P: small amount ascites, no omental nodularity, 1cm liver mass (benign flash fill, rec liver MRI), stable signoid wall calcifications 05/17 CT chest: no evidence of PE Assessment/Plan 43yo female with 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 >>Nausea, vomiting, abdominal pain -Nausea control: Zofran per primary team, Phenergan ordered as an alternative option -Pain control: Flexeril, Morphine and Tylenol per primary team, Oxycodone ordered as an alternativeoption. Bentyl ordered for abdominal cramping. 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 Palacio Dispo: symptom control Digitally Signed by CHAYA BLUNT MD on 05/17/2024 09:[address] [facility] [id number] Note. MICRO - Microbiology PROCEDURE: Shiga Toxins 1 and 2 [^1ACCESSION: [id number] *1] SOURCE: Stool BODY SITE: COLLECTED DATE/TIME: 05/18/2024 05:02 EDT RECEIVED DATE/TIME: 05/18/2024 07:07 EDT START DATE/TIME: 05/18/2024 07:07 EDT FREE TEXT SOURCE: FINAL REPORTS Final Report [] Verified Date/Time/Personnel: 05/19/2024 14:11 EDT Absence of Shiga toxin 1 Absence of Shiga toxin 2 Interpretive Data ^1: Shiga Toxins 1 and 2 Testing performed by immunochromatography. Performing Locations *1: This test was performed at: [facility], [address] [place] [address], [phone] , [facility] ([place])05-19-2024 Note Date of Service 05/19/2024 Chief Complaint Abdominal pain Nausea / Vomiting after Chemotherapy Subjective Patient seen this morning with senior resident Dr. Blunt. Patient was sleeping comfortably was not discharge. No acute events overnight. Will return to evaluate patient in afternoon rounds. Patient s/p Cardiology consult and chest pain not likely cardiac in nature. Objective Vitals and Measurements T: 37.1 C (Oral) TMIN: 36.7 C (Oral) TMAX: 37.4 C (Oral) HR: 71 (Monitored) RR: 18 BP: 120/73 SpO2:93% Intake and Output 7AM Yesterday to 7AM Today Intake and Output (Last 24 hours) Intake Administration Information 800.00 Oral Intake 310.00 Output Stool Count 1.00 Urine Count 2.00 Total Summary Total Intake 1110.00 Total Output 0.00 Fluid Balance 1110.00 Physical Exam Vitals Signs(Last 24 hrs)__ Last Charted Minimum Maximum Temp 37.1(MAY 19 01:36) 36.9(MAY 18 18:36) H 37.4(MAY 18 08:28) Heart Rate 71(MAY 19 01:36) 66(MAY 18 22:00) 80(MAY 18 18:36) SBP 120(MAY 19 01:36) 111(MAY 18 11:02) 132(MAY 18 08:28) DBP 73(MAY 19 01:36) 63(MAY 18 11:02) H 90(MAY 18 08:28) General: NAD. Sleeping comfortably. Head: Atraumatic, normocephalic. Cardiovascular: Regular rate Pulmonary: Unlabored, even chest rise. Weight Dosing Weight: 125 kg (05/17/24) Dosing Weight: 125 kg (05/17/24) Medications Medications (23) Active Scheduled: (8) cyclobenzaprine 5 mg tablet 5 mg 1 tab(s), Oral, TID dicyclomine 10 mg capsule 20 mg 2 cap(s), Oral, QID fluoxetine 20 mg Capsule 20 mg 1 cap(s), Oral, qDay heparin 5,000 units/mL (1 mL) vial 5,000 unit(s) 1 mL, Subcutaneous, q8h letrozole 2.5 mg tablet 2.5 mg 1 tab(s), Oral, qDay loratadine 10 mg Tablet 10 mg 1 tab(s), Oral, qDay nystatin susp 100,000 units/mL 5 mL UD 500,000 unit(s) 5 mL, Swish & Swallow, q6h ondansetron 2 mg/ 1 mL 2 mL INJ 4 mg 2 mL, IV Push, q4h Continuous: (1) NS (0.9% nacl) 1,000 mL 1,000 mL, Intravenous, 100 mL/hr PRN: (14) acetaminophen 325 mg Tablet 650 mg 2 tab(s), Oral, q6hr acetaminophen 325 mg Tablet 650 mg 2 tab(s), Oral, q4h acetaminophen 650 mg Suppository 650 mg 1 supp, Rectal, q4h Al hydrox/Mg hydrox/simethicone 200-200-20 mg/5 mL Susp UD 30 mL, Oral, q2h albuterol 0.083% Soln UD (2.5mg/3 mL) 2.5 mg 3 mL, Inhalation, q6hRT bisacodyl 5 mg EC tablet 10 mg 2 tab(s), Oral, qDay clonazePAM 0.5 mg tablet 0.5 mg 1 tab(s), Oral, qDay dextrose 50% Solution Disp syringe 50 mL 12.5 gram(s) 25 mL, IV Push, AsDirected diphenhy/antacid/lidocaine/nystatin 240 mL CMPD 10 mg, Oral, QID docusate-senna (Senokot S) 50 mg-8.6 mg Tablet 1 tab(s), Oral, BID melatonin 3 mg tablet 3 mg 1 tab(s), Oral, qHS morphine 2 mg/mL 1 mL syringe 2 mg 1 mL, IV Push, q3h oxycodone 5 mg tablet (immediate release) 5 mg 1 tab(s), Oral, q4h promethazine 25 mg Tablet 25 mg 1 tab(s), Oral, q6h Lab Results 05/19 04:45 WBC: 1.2 L Hgb: 9.9 L Hct: 29.0 L Platelet: 122 L Glucose Level: 104 Sodium Level: 143 Potassium Level: 3.8 BUN: 12.0 Creatinine Lvl (s): 0.64 05/18 02:24 WBC: 2.7 L Hgb: 11.0 L Hct: 32.5 L Platelet: 135 L Neutrophil %: 67.9 Glucose Level: 101 Sodium Level: 140 Potassium Level: 4.4 BUN: 19.0 Creatinine Lvl (s): 0.69 Imaging Results and Diagnostics CT Abd/Pelvis w/ IV Contrast Only Result Date: May 17, 2024 Verified By: MCKINLEY VERAS DO CLINICAL STATEMENT: IMPRESSION: 1. Small to moderate amount of ascites, of indeterminate etiology. Nodefinite peritoneal/omental nodularity. 2. Stable solitary homogeneous 1.2 cm enhancing mass in the liver. Findinglikely represents a benign flash fill hemangioma, but consider MRI livergiven patient's cancer history. 3. Stable wall calcifications versus wall hyperenhancement of the sigmoidcolon. No bowel obstruction. CT Angiography Chest w/ Contrast Result Date: May 17, 2024 Verified By: MCKINLEY VERAS DO CLINICAL STATEMENT: IMPRESSION: No evidence of pulmonary embolus. XR Chest 2 Views Result Date: May 17, 2024 Verified By: MCKINLEY VERAS DO CLINICAL STATEMENT: IMPRESSION: No evidence of an acute cardiopulmonary process. EKG No qualifying data available. 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 >> Admit to Stepdown monitored floor >> Vitals: q4hr >> Activity: Up to chair >> Diet: Regular >> IVF: NS 100 ml/hr >> UOP: voiding spontaneously >> Lines: PIV >> Antifungal: Nystatin swish swallow >> DVT Prophylaxis: SCDs, Heparin 5k q8hrs >> Consults: GynOnc >> Chemotherapy related side effects: Nausea, vomiting, abdominal pain, diarrhea - No episodes of emesis documented overnight - Zofran 4 mg/qhr - Pain control: Flexeril, Morphine and Tylenol per primary team, Oxycodone ordered as an alternative option. - Bentyl recommended for crampy abdominal pain. This will be changed to scheduled dosing since the patient has not received it overnight. - Adding Protonix qd to aid with reflux symptoms - C. diff PCR and Shiga toxin negative - Consult nutrition - Continue IVF hydration, advance diet as tolerated - ANC within normal limits, no signs of neutropenia. 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 The patient had a severe paclitaxel hypersensitivity reaction with cycle 1. The patient returned for carboplatin on day 2 of herfirst cycle. She received this without incident. For cycle 2 the patient received carboplatin and docetaxel. She developed her symptoms approximately 48 hours after receiving her chemotherapy. Taken as a whole this patient is likely having a significant delayed reaction to her docetaxel. Bowel frequency is a common side effect after taxane therapy which usually last for 2 to 3 days. This patient may have a more prominent taxane related GI toxicity. -Discussed w/ her subsequent cycles of chemotherapy to be administered as carboplatin alone or carboplatin plus a second chemotherapeutic agent (nontaxane). - CA-125: 181 > 446 - Continue Letrozole, was started given rising Ca-125 level >>Anxiety -Home Fluoxetine and Clonazepam continued >> Chest pain (Resolved) - - Negative troponins x 4 with unremarkable EKG for ischemia. ProBNP within normal limits - S/p loading dose ASA, statin started-- discontinued - Elevated D-Dimer, CTA chest ordered and negative for PE - s/p Cardio consult; rec appreciated. Cardio reports Chest pain unlikely to be cardiac in nature. - Echocardiogram reviewed with attending showing preserved EF and no obvious RWMA - no further cardiac workup needed at this time If continued symptoms upon discharge may benefit from outpatient cardiology follow-up. >> Transaminitis - Likely chemotherapy related adverse effects - On admission AST/ALT 76/89 downtrended this morning to AST/ALT 53/73 -Statin discontinued and can be restarted in outpatient setting per Cardio, with management defer to PCP >>Dispo: Continue IVF, Zofran and ADAT. Will re-evaluate patient in afternoon. Digitally Signed by GLORIA VÁSQUEZ MD on 05/19/2024 06:[address] [facility] [id number] Note Date of Service 05/19/2024 Chief Complaint Abdominal pain Nausea / Vomiting after Chemotherapy Subjective Patient seen this morning with senior resident Dr. Blunt. Patient was sleeping comfortably was not discharge. No acute events overnight. Will return to evaluate patient in afternoon rounds. Patient s/p Cardiology consult and chest pain not likely cardiac in nature. Objective Vitals and Measurements T: 37.1 C (Oral) TMIN: 36.7 C (Oral) TMAX: 37.4 C (Oral) HR: 71 (Monitored) RR: 18 BP: 120/73 SpO2:93% Intake and Output 7AM Yesterday to 7AM Today Intake and Output (Last 24 hours) Intake Administration Information 800.00 Oral Intake 310.00 Output Stool Count 1.00 Urine Count 2.00 Total Summary Total Intake 1110.00 Total Output 0.00 Fluid Balance 1110.00 Physical Exam Vitals Signs(Last 24 hrs)__ Last Charted Minimum Maximum Temp 37.1(MAY 19 01:36) 36.9(MAY 18 18:36) H 37.4(MAY 18 08:28) Heart Rate 71(MAY 19 01:36) 66(MAY 18 22:00) 80(MAY 18 18:36) SBP 120(MAY 19 01:36) 111(MAY 18 11:02) 132(MAY 18 08:28) DBP 73(MAY 19 01:36) 63(MAY 18 11:02) H 90(MAY 18 08:28) General: NAD. Sleeping comfortably. Head: Atraumatic, normocephalic. Cardiovascular: Regular rate Pulmonary: Unlabored, even chest rise. Weight Dosing Weight: 125 kg (05/17/24) Dosing Weight: 125 kg (05/17/24) Medications Medications (23) Active Scheduled: (8) cyclobenzaprine 5 mg tablet 5 mg 1 tab(s), Oral, TID dicyclomine 10 mg capsule 20 mg 2 cap(s), Oral, QID fluoxetine 20 mg Capsule 20 mg 1 cap(s), Oral, qDay heparin 5,000 units/mL (1 mL) vial 5,000 unit(s) 1 mL, Subcutaneous, q8h letrozole 2.5 mg tablet 2.5 mg 1 tab(s), Oral, qDay loratadine 10 mg Tablet 10 mg 1 tab(s), Oral, qDay nystatin susp 100,000 units/mL 5 mL UD 500,000 unit(s) 5 mL, Swish & Swallow, q6h ondansetron 2 mg/ 1 mL 2 mL INJ 4 mg 2 mL, IV Push, q4h Continuous: (1) NS (0.9% nacl) 1,000 mL 1,000 mL, Intravenous, 100 mL/hr PRN: (14) acetaminophen 325 mg Tablet 650 mg 2 tab(s), Oral, q6hr acetaminophen 325 mg Tablet 650 mg 2 tab(s), Oral, q4h acetaminophen 650 mg Suppository 650 mg 1 supp, Rectal, q4h Al hydrox/Mg hydrox/simethicone 200-200-20 mg/5 mL Susp UD 30 mL, Oral, q2h albuterol 0.083% Soln UD (2.5mg/3 mL) 2.5 mg 3 mL, Inhalation, q6hRT bisacodyl 5 mg EC tablet 10 mg 2 tab(s), Oral, qDay clonazePAM 0.5 mg tablet 0.5 mg 1 tab(s), Oral, qDay dextrose 50% Solution Disp syringe 50 mL 12.5 gram(s) 25 mL, IV Push, AsDirected diphenhy/antacid/lidocaine/nystatin 240 mL CMPD 10 mg, Oral, QID docusate-senna (Senokot S) 50 mg-8.6 mg Tablet 1 tab(s), Oral, BID melatonin 3 mg tablet 3 mg 1 tab(s), Oral, qHS morphine 2 mg/mL 1 mL syringe 2 mg 1 mL, IV Push, q3h oxycodone 5 mg tablet (immediate release) 5 mg 1 tab(s), Oral, q4h promethazine 25 mg Tablet 25 mg 1 tab(s), Oral, q6h Lab Results 05/19 04:45 WBC: 1.2 L Hgb: 9.9 L Hct: 29.0 L Platelet: 122 L Glucose Level: 104 Sodium Level: 143 Potassium Level: 3.8 BUN: 12.0 Creatinine Lvl (s): 0.64 05/18 02:24 WBC: 2.7 L Hgb: 11.0 L Hct: 32.5 L Platelet: 135 L Neutrophil %: 67.9 Glucose Level: 101 Sodium Level: 140 Potassium Level: 4.4 BUN: 19.0 Creatinine Lvl (s): 0.69 Imaging Results and Diagnostics CT Abd/Pelvis w/ IV Contrast Only Result Date: May 17, 2024 Verified By: MCKINLEY VERAS DO CLINICAL STATEMENT: IMPRESSION: 1. Small to moderate amount of ascites, of indeterminate etiology. Nodefinite peritoneal/omental nodularity. 2. Stable solitary homogeneous 1.2 cm enhancing mass in the liver. Findinglikely represents a benign flash fill hemangioma, but consider MRI livergiven patient's cancer history. 3. Stable wall calcifications versus wall hyperenhancement of the sigmoidcolon. No bowel obstruction. CT Angiography Chest w/ Contrast Result Date: May 17, 2024 Verified By: MCKINLEY VERAS DO CLINICAL STATEMENT: IMPRESSION: No evidence of pulmonary embolus. XR Chest 2 Views Result Date: May 17, 2024 Verified By: MCKINLEY VERAS DO CLINICAL STATEMENT: IMPRESSION: No evidence of an acute cardiopulmonary process. EKG No qualifying data available. 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 >> Admit to Stepdown monitored floor >> Vitals: q4hr >> Activity: Up to chair >> Diet: Regular >> IVF: NS 100 ml/hr >> UOP: voiding spontaneously >> Lines: PIV >> Antifungal: Nystatin swish swallow >> DVT Prophylaxis: SCDs, Heparin 5k q8hrs >> Consults: GynOnc >> Chemotherapy related side effects: Nausea, vomiting, abdominal pain, diarrhea - No episodes of emesis documented overnight - Zofran 4 mg/qhr - Pain control: Flexeril, Morphine and Tylenol per primary team, Oxycodone ordered as an alternative option. - Bentyl recommended for crampy abdominal pain. This will be changed to scheduled dosing since the patient has not received it overnight. - Adding Protonix qd to aid with reflux symptoms - C. diff PCR and Shiga toxin negative - Consult nutrition - Continue IVF hydration, advance diet as tolerated - ANC within normal limits, no signs of neutropenia. 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 The patient had a severe paclitaxel hypersensitivity reaction with cycle 1. The patient returned for carboplatin on day 2 of herfirst cycle. She received this without incident. For cycle 2 the patient received carboplatin and docetaxel. She developed her symptoms approximately 48 hours after receiving her chemotherapy. Taken as a whole this patient is likely having a significant delayed reaction to her docetaxel. Bowel frequency is a common side effect after taxane therapy which usually last for 2 to 3 days. This patient may have a more prominent taxane related GI toxicity. -Discussed w/ her subsequent cycles of chemotherapy to be administered as carboplatin alone or carboplatin plus a second chemotherapeutic agent (nontaxane). - CA-125: 181 > 446 - Continue Letrozole, was started given rising Ca-125 level >>Anxiety -Home Fluoxetine and Clonazepam continued >> Chest pain (Resolved) - - Negative troponins x 4 with unremarkable EKG for ischemia. ProBNP within normal limits - S/p loading dose ASA, statin started-- discontinued - Elevated D-Dimer, CTA chest ordered and negative for PE - s/p Cardio consult; rec appreciated. Cardio reports Chest pain unlikely to be cardiac in nature. - Echocardiogram reviewed with attending showing preserved EF and no obvious RWMA - no further cardiac workup needed at this time If continued symptoms upon discharge may benefit from outpatient cardiology follow-up. >> Transaminitis - Likely chemotherapy related adverse effects - On admission AST/ALT 76/89 downtrended this morning to AST/ALT 53/73 -Statin discontinued and can be restarted in outpatient setting per Cardio, with management defer to PCP >>Dispo: Continue IVF, Zofran and ADAT. Will re-evaluate patient in afternoon. Digitally Signed by GLORIA VÁSQUEZ MD on 05/19/2024 06:[address] [facility] [id number] Cardiology Consult note Date of Service 05/18/2024 Reason for Consultation Chest pain Referring Physician Dr. Crandall History of Present Illness Patient is a 43-year-old female with past medical history significant for stage IIIb low-grade serous ovarian CA, s/p TLH, BSO, pelvic lymph node dissection and omentectomy in 03/2024, s/p 2 cycles chemotherapy (most recently carboplatin/docetaxel) who presented to [place] ED on 05/17/2024 with 3 to 4-day history of nausea, vomiting, diarrhea and abdominal pain. Patient notes initial back pain radiating around to her abdomen and then upwards to left side of chest. Described as tightness with radiation down left arm and associated palpitations. Denied shortness of breath or diaphoresis. Unable to give aggravating factors but did not chest pain improved withsitting up which typically improves her abdominal pain. Pain was intermittent and lasted for total of maybe 6 hours up until arrival to ED when it resolved on its own. Denies fever, or recent viral infection. Similar chest pain in the past earlier last month when she developed anaphylactic reactionto cycle 1 of chemotherapy with Taxol. No previous personal or family history of cardiac disease Upon arrival to ED bradycardic at 104, respiration 24, BP controlled at 118/87. Initial labs with WBC 3.5, D-dimer 847, troponins x 4 negative, proBNP <35. Initial EKG was sinus tachycardia of 108bpm, LAD, no acute ischemic changes. CTA chest with no evidence of pulmonary embolism. Loaded with aspirin 324 mg and continued on 81 mg daily along with statin 40 mg daily. Echocardiogram ordered. When seen this a.m. currently chest pain-free. Notes abdominal pain and nausea have improved since being medicated. Review of Systems 11 point review of systems negative unless otherwise stated in HPI Physical Exam Vitals and Measurements T: 37.4 C (Oral) TMIN: 36.3 C (Temporal Artery) TMAX: 37.4 C (Oral) HR: 90 (Apical) RR: 18 BP: 132/90 SpO2: 96% HT: 165 cm WT: 125 kg BMI: 45.91 Weight Dosing Weight: 125 kg (05/17/24) Dosing Weight: 125 kg (05/17/24) General Appearance: Patient comfortably lying on bed, not in acute distress Head: Normocephalic, atraumatic EENT: PERRLA, Neck: Supple, no JVD, no mass Cardiac: s1s2,RRR, no murmurs or rubs or gallops Lungs: Clear to auscultation bilaterally, no wheeze or rhonchi or crackles Abdomen: Soft , obese, mild tenderness to palpation. Musculoskeletal: Full ROM , no gross deformities Extremities: No rash or ulcers or pedal edema Neurological: Alert, oriented x 3, grossly no focal neurological deficits Skin: No rash or ulcers Psychiatric: Normal mood and affect Lab Results 05/18 02:24 WBC: 2.7 L Hgb: 11.0 L Hct: 32.5 L Platelet: 135 L Neutrophil %: 67.9 Glucose Level: 101 Sodium Level: 140 Potassium Level: 4.4 BUN: 19.0 Creatinine Lvl (s): 0.69 05/17 12:23 WBC: 3.5 L Hgb: 12.8 Hct: 37.3 Platelet: 151 Neutrophil %: 85.9 H Glucose Level: 129 H Sodium Level: 140 Potassium Level: 3.8 BUN: 15.0 Creatinine Lvl (s): 0.61 Imaging Results and Diagnostics CT Abd/Pelvis w/ IV Contrast Only Result Date: May 17, 2024 Verified By: MCKINLEY VERAS DO CLINICAL STATEMENT: IMPRESSION: 1. Small to moderate amount of ascites, of indeterminate etiology. Nodefinite peritoneal/omental nodularity. 2. Stable solitary homogeneous 1.2 cm enhancing mass in the liver. Findinglikely represents a benign flash fill hemangioma, but consider MRI livergiven patient's cancer history. 3. Stable wall calcifications versus wall hyperenhancement of the sigmoidcolon. No bowel obstruction. CT Angiography Chest w/ Contrast Result Date: May 17, 2024 Verified By: MCKINLEY VERAS DO CLINICAL STATEMENT: IMPRESSION: No evidence of pulmonary embolus. XR Chest 2 Views Result Date: May 17, 2024 Verified By: MCKINLEY VERAS DO CLINICAL STATEMENT: IMPRESSION: No evidence of an acute cardiopulmonary process. Assessment/Plan Chest pain likely musculoskeletal Stage IIIb low-grade serous ovarian cancer Chemotherapy related side effects Mild transaminitis Patient is a 43-year-old female with no significant cardiac history, recent diagnosis of ovarian Chun/p cycle 2 of chemotherapy. Presented with chemotherapy related GI symptoms with radiation of abdominal pain to her chest. Chest pain unlikely to be cardiac in nature. Negative troponins x 4 with unremarkable EKG for ischemia. Additionally patient has no cardiac risk factors. Echocardiogram reviewed with attending showing preserved EF and no obvious RWMA. Recommendations: No need for further cardiac workup in house. May discontinue aspirin. May also defer statin therapy to outpatient setting given transaminitis. Risk stratification with lipid panel and calculation of ASCVD to determine further statin therapy. Defer to PCP If continued symptoms upon discharge may benefit from outpatient cardiology follow-up. Cardiology will sign off at this time. Please feel free to contact us with any additional questionsor concerns. Patient seen with attending physician Dr. Wells who is agreement with plan. Please see addendum for changes. Problem List/Past Medical History Ongoing Anxiety with depression Family history of breast cancer in mother Oral thrush Primary low grade serous adenocarcinoma of ovary Historical Acute superficial venous thrombosis of lower extremity Procedure/Surgical History LEEP: 2009 Colposcopy: 2009 Appendectomy: 2002 Medications Inpatient acetaminophen, 650 mg= 2 tab(s), Oral, q6hr, PRN albuterol 2.5 mg/3 mL (0.083%) inhalation solution, 2.5 mg= 3 mL, Inhalation, q6hRT, PRN aspirin, 81 mg= 1 tab(s), Oral, Daily atorvastatin, 40 mg= 1 tab(s), Oral, Daily Bentyl, 20 mg= 2 cap(s), Oral, QID, PRN Claritin, 10 mg= 1 tab(s), Oral, qDay clonazePAM, 0.5 mg= 1 tab(s), Oral, qDay, PRN cyclobenzaprine, 5 mg= 1 tab(s), Oral, TID Dextrose 50% IV Push, 12.5 gram(s)= 25 mL, IV Push, AsDirected, PRN Dulcolax Laxative, 10 mg= 2 tab(s), Oral, qDay, PRN FLUoxetine, 20 mg= 1 cap(s), Oral, qDay heparin 5000 units/mL injection, 5000 unit(s)= 1 mL, Subcutaneous, q8h letrozole, 2.5 mg= 1 tab(s), Oral, qDay Maalox, 30 mL, Oral, q2h, PRN Magic mouthwash, 10 mg, Oral, QID, PRN melatonin, 3 mg= 1 tab(s), Oral, qHS, PRN morphine, 2 mg= 1 mL, IV Push, q3h, PRN NS 1,000 mL, 1000 mL, Intravenous nystatin, 964569 unit(s)= 5 mL, Swish & Swallow, q6h oxyCODONE 5 mg oral tablet ( IMMEDIATE release ), 5 mg= 1 tab(s), Oral, q4h, PRN Phenergan, 25 mg= 1 tab(s), Oral, q6h, PRN Senokot S, 1 tab(s), Oral, BID, PRN Tylenol, 650 mg= 2 tab(s), Oral, q4h, PRN Tylenol, 650 mg= 1 supp, Rectal, q4h, PRN Zofran, 4 mg= 2 mL, IV Push, q4h, PRN Home albuterol MDI (90 mcg/inh) CFC free inhalation aerosol, 1 puff(s), Inhalation, q4h, PRN Claritin 10 mg oral tablet, 10 mg= 1 tab(s), Oral, qDay clonazePAM 0.5 mg oral tablet, 0.5 mg= 1 tab(s), Oral, qDay, PRN dexAMETHasone 4 mg oral tablet, See Instructions FLUoxetine 20 mg oral capsule, 20 mg= 1 cap(s), Oral, qDay letrozole 2.5 mg oral tablet, 2.5 mg= 1 tab(s), Oral, qDay, 1 refills, Has Not Started: NEW SCRIPT HAS NOT STARTED Magic mouthwash (Slevtwza-Nujsfw-Ewjxwjwru-Mycostatin), See Instructions, 1 refills ondansetron 4 mg oral tablet, 4 mg= 1 tab(s), Oral, q6h, 2 refills Allergies Taxol(Severe) anaphylaxis Social History Alcohol Use: Current. Frequency: 1-2 times per year., 03/30/2024 Home/Environment Living situation: Home/Independent. Safe place to go: Yes. Domestic Concerns: Denies., 04/03/2024 Nutrition/Health Caffeine intake amount: 1-2 servings per week., 10/13/2020 Sexual Sexually active: Yes. Current partners: 1. History of sexual abuse: No., 03/10/2024 Substance Abuse Use: DENIES., 03/30/2024 Tobacco Nicotine Use: Never (less than 100 in lifetime). Exposure to Tobacco Smoke Lives in non-smoking home., 10/13/2020 Family History Alcohol abuse: Maternal Grandfather. Arthritis: Father and Paternal Grandmother. Asthma: Maternal Grandfather. BRCA1 gene mutation detected: Mother. Breast cancer: Maternal Grandmother and Unknown. Depression: Father.Negative: Mother, Sister, Brother, Daughter, Son, Grandparent, Maternal Grandfather, Maternal Grandmother and Paternal Grandmother. Diabetes: Father. Hypertension: Father and Paternal Grandfather. Ovarian cancer: Maternal Grandmother and Unknown. Health Status Family Member(s) Immunizations SARS-CoV-2 (COVID-19) mRNA-1273 vaccine: 0 unknown unit (08/07/21) SARS-CoV-2 (COVID-19) mRNA-1273 vaccine: 0 unknown unit (10/10/20) SARS-CoV-2 (COVID-19) mRNA-1273 vaccine: 0 unknown unit (09/12/20) Digitally Signed by PATIENCE CLEVELAND MD on 05/18/2024 12:[address] [facility] [id number] Note Date of Service 05/18/2024 Subjective Patient feels a little better today, still quite nauseated. Able to get down some water and crackers. Patient states she gets abdominal cramping starting in the upper mid and left abdomen, and soon following this she has to have a bowel movement and has small amounts of what is basically pudding consistency stool. Does states she feels much better than yesterday. Objective Vitals and Measurements T: 36.9 C (Oral) TMIN: 36.7 C (Oral) TMAX: 37.4 C (Oral) HR: 76 (Monitored) RR: 18 BP: 128/71 SpO2:95% HT: 165 cm WT: 125 kg BMI: 45.91 Intake and Output 7AM Yesterday to 7AM Today Intake and Output (Last 24 hours) Intake Administration Information 800.00 Oral Intake 310.00 Output Urine Voided 100.00 Stool Count 2.00 Urine Count 2.00 Total Summary Total Intake 1110.00 Total Output 100.00 Fluid Balance 1010.00 Physical Exam Exam: Awake and alert, slightly washed out but no acute distress CVS: regular, no murmur Lungs: clear to auscultation Abdomen: soft, non distended, no guarding but uncomfortable exam especially upper abdomen Extremities: No edema Weight Dosing Weight: 125 kg (05/17/24) Dosing Weight: 125 kg (05/17/24) Medications Medications (23) Active Scheduled: (8) cyclobenzaprine 5 mg tablet 5 mg 1 tab(s), Oral, TID dicyclomine 10 mg capsule 20 mg 2 cap(s), Oral, QID fluoxetine 20 mg Capsule 20 mg 1 cap(s), Oral, qDay heparin 5,000 units/mL (1 mL) vial 5,000 unit(s) 1 mL, Subcutaneous, q8h letrozole 2.5 mg tablet 2.5 mg 1 tab(s), Oral, qDay loratadine 10 mg Tablet 10 mg 1 tab(s), Oral, qDay nystatin susp 100,000 units/mL 5 mL UD 500,000 unit(s) 5 mL, Swish & Swallow, q6h ondansetron 2 mg/ 1 mL 2 mL INJ 4 mg 2 mL, IV Push, q4h Continuous: (1) NS (0.9% nacl) 1,000 mL 1,000 mL, Intravenous, 100 mL/hr PRN: (14) acetaminophen 325 mg Tablet 650 mg 2 tab(s), Oral, q6hr acetaminophen 325 mg Tablet 650 mg 2 tab(s), Oral, q4h acetaminophen 650 mg Suppository 650 mg 1 supp, Rectal, q4h Al hydrox/Mg hydrox/simethicone 200-200-20 mg/5 mL Susp UD 30 mL, Oral, q2h albuterol 0.083% Soln UD (2.5mg/3 mL) 2.5 mg 3 mL, Inhalation, q6hRT bisacodyl 5 mg EC tablet 10 mg 2 tab(s), Oral, qDay clonazePAM 0.5 mg tablet 0.5 mg 1 tab(s), Oral, qDay dextrose 50% Solution Disp syringe 50 mL 12.5 gram(s) 25 mL, IV Push, AsDirected diphenhy/antacid/lidocaine/nystatin 240 mL CMPD 10 mg, Oral, QID docusate-senna (Senokot S) 50 mg-8.6 mg Tablet 1 tab(s), Oral, BID melatonin 3 mg tablet 3 mg 1 tab(s), Oral, qHS morphine 2 mg/mL 1 mL syringe 2 mg 1 mL, IV Push, q3h oxycodone 5 mg tablet (immediate release) 5 mg 1 tab(s), Oral, q4h promethazine 25 mg Tablet 25 mg 1 tab(s), Oral, q6h Lab Results 05/18 02:24 WBC: 2.7 L Hgb: 11.0 L Hct: 32.5 L Platelet: 135 L Neutrophil %: 67.9 Glucose Level: 101 Sodium Level: 140 Potassium Level: 4.4 BUN: 19.0 Creatinine Lvl (s): 0.69 05/17 12:23 WBC: 3.5 L Hgb: 12.8 Hct: 37.3 Platelet: 151 Neutrophil %: 85.9 H Glucose Level: 129 H Sodium Level: 140 Potassium Level: 3.8 BUN: 15.0 Creatinine Lvl (s): 0.61 EKG No qualifying data available. Assessment/Plan Carcinoma of ovary, stage 3 Elevated CA-125 Oral thrush Nausea, vomiting, and abdominal cramping with diarrhea which patient stated started soon after her second chemotherapy dose. Patient with stage IIIb low- grade serous ovarian cancer. Livestock Sales Representative-onc consulted for opinion. But at this time mostly treating with conservative symptomatic care.No infection seen on workup, C. difficile negative. Continue IV fluids, patient thinks this is helping the most. Can take diet as tolerated. Patient also complained of chest pain on admission. Started on aspirin and Lipitor but these will be stopped today as might exacerbate patient's current symptoms. Seen by cardiology and troponins negative, EKG unremarkable for ischemia, and echocardiogram showed preserved EF and no wall motion abnor malities. No chest pain at all today. Patient's urinalysis shows 5-10 white cells and 3+ bacteria but may not be a clean sample. No urineculture done. I have ordered a urine culture and counseled the patient on how to help us make it a clean-catch sample. She states that she is not having any urinary symptoms at all at this time so difficult to relate this to her abdominal pain. If culture is positive then we will treat presumptively but at this time holding antibiotics. Orders: Complete Blood Count(CBC), 05/19/24 5:00:00 EDT, Next AM Draw (one day only), Blood, Once, Preferred Lab: [facility], Stop date 05/19/24 5:00:00 EDT Complete Metabolic Panel(CMP), 05/19/24 5:00:00 EDT, Next AM Draw (one day only), Blood, Once, Preferred Lab: [facility], Stop date 05/19/24 5:00:00 EDT Magnesium Level, 05/19/24 5:01:00 EDT, Next AM Draw (one day only), Blood, Once, Preferred Lab: [facility], Stop date 05/19/24 5:01:00 EDT Urine Culture(Culture Urine), 05/18/24 7:18:00 EDT, Routine, Urine, Clean Catch, Stop date 247:18:00 EDT, Nurse collect, Preferred Lab: [facility] Digitally Signed by PORSHA LAKE MD on 05/18/2024 05:[address] [facility] [id number] Note. MICRO - Microbiology PROCEDURE: Fecal Leukocytes [*1] SOURCE: Stool BODY SITE: COLLECTED DATE/TIME: 05/18/2024 05:02 EDT RECEIVED DATE/TIME: 05/18/2024 07:07 EDT START DATE/TIME: 05/18/2024 07:07 EDT FREE TEXT SOURCE: FINAL REPORTS Final Report [] Verified Date/Time/Personnel: 05/18/2024 12:34 EDT Microscopy: Fecal Leukocytes Present Fecal leukocytes may be associated with enteroinvasive infection. However, from our data , in only 50% of bacterial GI infections is there evidence of fecal WBC's. Performing Locations *1: This test was performed at: [facility], [address] [place] [address], [id number] , [facility] ([place])05-18-2024 Note Date of Service 05/18/2024 Chief Complaint Abdominal pain Nausea / Vomiting Subjective Patient seen and evaluated this morning. She reports some improvement in her nausea. She denies anyepisodes of vomiting overnight. She has only been able to tolerate crackers however reports after eating or drinking anything she experiences cramping abdominal pain and has an episode of diarrhea. She reports this acidic, metallic taste in her mouth from time to time. She denies fever, chills, chest pain, shortness of breath, dizziness, syncope. She is voiding spontaneously. She denies blood diarrhea. Objective Vitals and Measurements T: 36.7 C (Oral) TMIN: 36.3 C (Temporal Artery) TMAX: 36.8 C (Oral) HR: 79 RR: 19 BP: 106/73 SpO2: 97% HT: 165 cm WT: 125 kg BMI: 45.91 Intake and Output 7AM Yesterday to 7AM Today Intake and Output (Last 24 hours) Intake Administration Information 800.00 Oral Intake 240.00 Output Urine Voided 100.00 Stool Count 1.00 Total Summary Total Intake 1040.00 Total Output 100.00 Fluid Balance 940.00 Physical Exam General: A&Ox3, no apparent distress Resp: clear to auscultation bilaterally CV: Regular rate Abdomen: Soft, nonrigid, no peritoneal signs, positive bowel sounds throughout , mild tenderness topalpation, no guarding, no rebound Pelvis: No signs of active vaginal bleeding Ext: Minimal lower extremity edema. No cyanosis. Negative Homans sign Weight Dosing Weight: 125 kg (05/17/24) Dosing Weight: 125 kg (05/17/24) Medications Medications (25) Active Scheduled: (8) aspirin 81 mg Chewable 81 mg 1 tab(s), Oral, Daily atorvastatin 40 mg tablet 40 mg 1 tab(s), Oral, Daily cyclobenzaprine 5 mg tablet 5 mg 1 tab(s), Oral, TID fluoxetine 20 mg Capsule 20 mg 1 cap(s), Oral, qDay heparin 5,000 units/mL (1 mL) vial 5,000 unit(s) 1 mL, Subcutaneous, q8h letrozole 2.5 mg tablet 2.5 mg 1 tab(s), Oral, qDay loratadine 10 mg Tablet 10 mg 1 tab(s), Oral, qDay nystatin susp 100,000 units/mL 5 mL UD 500,000 unit(s) 5 mL, Swish & Swallow, q6h Continuous: (1) NS (0.9% nacl) 1,000 mL 1,000 mL, Intravenous, 100 mL/hr PRN: (16) acetaminophen 325 mg Tablet 650 mg 2 tab(s), Oral, q6hr acetaminophen 325 mg Tablet 650 mg 2 tab(s), Oral, q4h acetaminophen 650 mg Suppository 650 mg 1 supp, Rectal, q4h Al hydrox/Mg hydrox/simethicone 200-200-20 mg/5 mL Susp UD 30 mL, Oral, q2h albuterol 0.083% Soln UD (2.5mg/3 mL) 2.5 mg 3 mL, Inhalation, q6hRT bisacodyl 5 mg EC tablet 10 mg 2 tab(s), Oral, qDay clonazePAM 0.5 mg tablet 0.5 mg 1 tab(s), Oral, qDay dextrose 50% Solution Disp syringe 50 mL 12.5 gram(s) 25 mL, IV Push, AsDirected dicyclomine 10 mg capsule 20 mg 2 cap(s), Oral, QID diphenhy/antacid/lidocaine/nystatin 240 mL CMPD 10 mg, Oral, QID docusate-senna (Senokot S) 50 mg-8.6 mg Tablet 1 tab(s), Oral, BID melatonin 3 mg tablet 3 mg 1 tab(s), Oral, qHS morphine 2 mg/mL 1 mL syringe 2 mg 1 mL, IV Push, q3h ondansetron 2 mg/ 1 mL 2 mL INJ 4 mg 2 mL, IV Push, q4h oxycodone 5 mg tablet (immediate release) 5 mg 1 tab(s), Oral, q4h promethazine 25 mg Tablet 25 mg 1 tab(s), Oral, q6h Lab Results 05/18 02:24 WBC: 2.7 L Hgb: 11.0 L Hct: 32.5 L Platelet: 135 L Neutrophil %: 67.9 Glucose Level: 101 Sodium Level: 140 Potassium Level: 4.4 BUN: 19.0 Creatinine Lvl (s): 0.69 05/17 12:23 WBC: 3.5 L Hgb: 12.8 Hct: 37.3 Platelet: 151 Neutrophil %: 85.9 H Glucose Level: 129 H Sodium Level: 140 Potassium Level: 3.8 BUN: 15.0 Creatinine Lvl (s): 0.61 Imaging Results and Diagnostics CT Abd/Pelvis w/ IV Contrast Only Result Date: May 17, 2024 Verified By: MCKINLEY VERAS DO CLINICAL STATEMENT: IMPRESSION: 1. Small to moderate amount of ascites, of indeterminate etiology. Nodefinite peritoneal/omental nodularity. 2. Stable solitary homogeneous 1.2 cm enhancing mass in the liver. Findinglikely represents a benign flash fill hemangioma, but consider MRI livergiven patient's cancer history. 3. Stable wall calcifications versus wall hyperenhancement of the sigmoidcolon. No bowel obstruction. CT Angiography Chest w/ Contrast Result Date: May 17, 2024 Verified By: MCKINLEY VERAS DO CLINICAL STATEMENT: IMPRESSION: No evidence of pulmonary embolus. XR Chest 2 Views Result Date: May 17, 2024 Verified By: MCKINLEY VERAS DO CLINICAL STATEMENT: IMPRESSION: No evidence of an acute cardiopulmonary process. 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 >> Admit to Stepdown monitored floor >> Vitals: q4hr >> Activity: Up to chair >> Diet: Regular >> IVF: NS 100 ml/hr >> UOP: voiding spontaneously >> Lines: PIV >> Antifungal: Nystatin swish swallow >> DVT Prophylaxis: SCDs, Heparin 5k q8hrs >> Consults: GynOnc >> Chemotherapy related side effects: Nausea, vomiting, abdominal pain, diarrhea - Nausea not well controlled. Recommending scheduling Zofran 4 mg q4 hrs. - Pain control: Flexeril, Morphine and Tylenol per primary team, Oxycodone ordered as an alternative option. - Bentyl recommended for crampy abdominal pain. This will be changed to scheduled dosing since the patient has not received it overnight. - Adding Protonix qd to aid with reflux symptoms - C. diff PCR negative - Consult nutrition - Continue IVF hydration, advance diet as tolerated - ANC within normal limitis, no signs of neutropenia. 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 The patient had a severe paclitaxel hypersensitivity reaction with cycle 1. The patient returned for carboplatin on day 2 of herfirst cycle. She received this without incident. For cycle 2 the patient received carboplatin and docetaxel. She developed her symptoms approximately 48 hours after receiving her chemotherapy. Taken as a whole this patient is likely having a significant delayed reaction to her docetaxel. Bowel frequency is a common side effect after taxane therapy which usually last for 2 to 3 days. This patient may have a more prominent taxane related GI toxicity. We discussed her subsequent cycles of chemotherapy to be administered as carboplatin alone or carboplatin plus a second chemotherapeutic agent (nontaxane). - CA-125: 181 > 446 - Continue Letrozole, was started given rising Ca-125 level >>Anxiety -Home Fluoxetine and Clonazepam continued >> Chest pain (Resolved) - Troponin negative. EKG sinus tachycardia. ProBNP within normal limits - S/p loading dose ASA, statin started - Elevated D-Dimer, CTA chest ordered and negative for PE - Transthoracic echocardiogram pending - Cardio consult pending >> Transaminitis - Likely chemotherapy related adverse effects - On admission AST/ALT 76/89 downtrended this morning to AST/ALT 58/82 Disposition: Continue IVF, recommending scheduling antiemetics, starting Protonix, advance diet as tolerated. Awaiting cardiology consult. Patient was seen and examined with Dr. Faulkner. Anticipated Date of Discharge 1-2 days Time Spent 35 minutes Digitally Signed by ELVA TURNER MD on 05/18/2024 07:53 AM Digitally Signed by LAYO FAULKNER MD, LAYO on 05/18/2024 12:[address] [facility] [id number] Note* Exam Date Time Procedure Performing Provider Status 05/18/24 9:37 AM Echocardiogram, Adult - CV Auth (Verified) [facility] 09-02-2024 Cardiology Consult note Date of Service 05/18/2024 Reason for Consultation Chest pain Referring Physician Dr. Crandall History of Present Illness Patient is a 43-year-old female with past medical history significant for stage IIIb low-grade serous ovarian CA, s/p TLH, BSO, pelvic lymph node dissection and omentectomy in 03/2024, s/p 2 cycles chemotherapy (most recently carboplatin/docetaxel) who presented to [place] ED on 05/17/2024 with 3 to 4-day history of nausea, vomiting, diarrhea and abdominal pain. Patient notes initial back pain radiating around to her abdomen and then upwards to left side of chest. Described as tightness with radiation down left arm and associated palpitations. Denied shortness of breath or diaphoresis. Unable to give aggravating factors but did not chest pain improved withsitting up which typically improves her abdominal pain. Pain was intermittent and lasted for total of maybe 6 hours up until arrival to ED when it resolved on its own. Denies fever, or recent viral infection. Similar chest pain in the past earlier last month when she developed anaphylactic reactionto cycle 1 of chemotherapy with Taxol. No previous personal or family history of cardiac disease Upon arrival to ED bradycardic at 104, respiration 24, BP controlled at 118/87. Initial labs with WBC 3.5, D-dimer 847, troponins x 4 negative, proBNP <35. Initial EKG was sinus tachycardia of 108bpm, LAD, no acute ischemic changes. CTA chest with no evidence of pulmonary embolism. Loaded with aspirin 324 mg and continued on 81 mg daily along with statin 40 mg daily. Echocardiogram ordered. When seen this a.m. currently chest pain-free. Notes abdominal pain and nausea have improved since being medicated. Review of Systems 11 point review of systems negative unless otherwise stated in HPI Physical Exam Vitals and Measurements T: 37.4 C (Oral) TMIN: 36.3 C (Temporal Artery) TMAX: 37.4 C (Oral) HR: 90 (Apical) RR: 18 BP: 132/90 SpO2: 96% HT: 165 cm WT: 125 kg BMI: 45.91 Weight Dosing Weight: 125 kg (05/17/24) Dosing Weight: 125 kg (05/17/24) General Appearance: Patient comfortably lying on bed, not in acute distress Head: Normocephalic, atraumatic EENT: PERRLA, Neck: Supple, no JVD, no mass Cardiac: s1s2,RRR, no murmurs or rubs or gallops Lungs: Clear to auscultation bilaterally, no wheeze or rhonchi or crackles Abdomen: Soft , obese, mild tenderness to palpation. Musculoskeletal: Full ROM , no gross deformities Extremities: No rash or ulcers or pedal edema Neurological: Alert, oriented x 3, grossly no focal neurological deficits Skin: No rash or ulcers Psychiatric: Normal mood and affect Lab Results 05/18 02:24 WBC: 2.7 L Hgb: 11.0 L Hct: 32.5 L Platelet: 135 L Neutrophil %: 67.9 Glucose Level: 101 Sodium Level: 140 Potassium Level: 4.4 BUN: 19.0 Creatinine Lvl (s): 0.69 05/17 12:23 WBC: 3.5 L Hgb: 12.8 Hct: 37.3 Platelet: 151 Neutrophil %: 85.9 H Glucose Level: 129 H Sodium Level: 140 Potassium Level: 3.8 BUN: 15.0 Creatinine Lvl (s): 0.61 Imaging Results and Diagnostics CT Abd/Pelvis w/ IV Contrast Only Result Date: May 17, 2024 Verified By: MCKINLEY VERAS DO CLINICAL STATEMENT: IMPRESSION: 1. Small to moderate amount of ascites, of indeterminate etiology. Nodefinite peritoneal/omental nodularity. 2. Stable solitary homogeneous 1.2 cm enhancing mass in the liver. Findinglikely represents a benign flash fill hemangioma, but consider MRI livergiven patient's cancer history. 3. Stable wall calcifications versus wall hyperenhancement of the sigmoidcolon. No bowel obstruction. CT Angiography Chest w/ Contrast Result Date: May 17, 2024 Verified By: MCKINLEY VERAS DO CLINICAL STATEMENT: IMPRESSION: No evidence of pulmonary embolus. XR Chest 2 Views Result Date: May 17, 2024 Verified By: MCKINLEY VERAS DO CLINICAL STATEMENT: IMPRESSION: No evidence of an acute cardiopulmonary process. Assessment/Plan Chest pain likely musculoskeletal Stage IIIb low-grade serous ovarian cancer Chemotherapy related side effects Mild transaminitis Patient is a 43-year-old female with no significant cardiac history, recent diagnosis of ovarian Chun/p cycle 2 of chemotherapy. Presented with chemotherapy related GI symptoms with radiation of abdominal pain to her chest. Chest pain unlikely to be cardiac in nature. Negative troponins x 4 with unremarkable EKG for ischemia. Additionally patient has no cardiac risk factors. Echocardiogram reviewed with attending showing preserved EF and no obvious RWMA. Recommendations: No need for further cardiac workup in house. May discontinue aspirin. May also defer statin therapy to outpatient setting given transaminitis. Risk stratification with lipid panel and calculation of ASCVD to determine further statin therapy. Defer to PCP If continued symptoms upon discharge may benefit from outpatient cardiology follow-up. Cardiology will sign off at this time. Please feel free to contact us with any additional questionsor concerns. Patient seen with attending physician Dr. Wells who is agreement with plan. Please see addendum for changes. Problem List/Past Medical History Ongoing Anxiety with depression Family history of breast cancer in mother Oral thrush Primary low grade serous adenocarcinoma of ovary Historical Acute superficial venous thrombosis of lower extremity Procedure/Surgical History LEEP: 2009 Colposcopy: 2008 Appendectomy: 2002 Medications Inpatient acetaminophen, 650 mg= 2 tab(s), Oral, q6hr, PRN albuterol 2.5 mg/3 mL (0.083%) inhalation solution, 2.5 mg= 3 mL, Inhalation, q6hRT, PRN aspirin, 81 mg= 1 tab(s), Oral, Daily atorvastatin, 40 mg= 1 tab(s), Oral, Daily Bentyl, 20 mg= 2 cap(s), Oral, QID, PRN Claritin, 10 mg= 1 tab(s), Oral, qDay clonazePAM, 0.5 mg= 1 tab(s), Oral, qDay, PRN cyclobenzaprine, 5 mg= 1 tab(s), Oral, TID Dextrose 50% IV Push, 12.5 gram(s)= 25 mL, IV Push, AsDirected, PRN Dulcolax Laxative, 10 mg= 2 tab(s), Oral, qDay, PRN FLUoxetine, 20 mg= 1 cap(s), Oral, qDay heparin 5000 units/mL injection, 5000 unit(s)= 1 mL, Subcutaneous, q8h letrozole, 2.5 mg= 1 tab(s), Oral, qDay Maalox, 30 mL, Oral, q2h, PRN Magic mouthwash, 10 mg, Oral, QID, PRN melatonin, 3 mg= 1 tab(s), Oral, qHS, PRN morphine, 2 mg= 1 mL, IV Push, q3h, PRN NS 1,000 mL, 1000 mL, Intravenous nystatin, 392109 unit(s)= 5 mL, Swish & Swallow, q6h oxyCODONE 5 mg oral tablet ( IMMEDIATE release ), 5 mg= 1 tab(s), Oral, q4h, PRN Phenergan, 25 mg= 1 tab(s), Oral, q6h, PRN Senokot S, 1 tab(s), Oral, BID, PRN Tylenol, 650 mg= 2 tab(s), Oral, q4h, PRN Tylenol, 650 mg= 1 supp, Rectal, q4h, PRN Zofran, 4 mg= 2 mL, IV Push, q4h, PRN Home albuterol MDI (90 mcg/inh) CFC free inhalation aerosol, 1 puff(s), Inhalation, q4h, PRN Claritin 10 mg oral tablet, 10 mg= 1 tab(s), Oral, qDay clonazePAM 0.5 mg oral tablet, 0.5 mg= 1 tab(s), Oral, qDay, PRN dexAMETHasone 4 mg oral tablet, See Instructions FLUoxetine 20 mg oral capsule, 20 mg= 1 cap(s), Oral, qDay letrozole 2.5 mg oral tablet, 2.5 mg= 1 tab(s), Oral, qDay, 1 refills, Has Not Started: NEW SCRIPT HAS NOT STARTED Magic mouthwash (Szegdjwa-[id number]-Nflycbxbj-Mycostatin), See Instructions, 1 refills ondansetron 4 mg oral tablet, 4 mg= 1 tab(s), Oral, q6h, 2 refills Allergies Taxol(Severe) anaphylaxis Social History Alcohol Use: Current. Frequency: 1-2 times per year., 03/30/2024 Home/Environment Living situation: Home/Independent. Safe place to go: Yes. Domestic Concerns: Denies., 04/03/2024 Nutrition/Health Caffeine intake amount: 1-2 servings per week., 10/13/2020 Sexual Sexually active: Yes. Current partners: 1. History of sexual abuse: No., 03/10/2024 Substance Abuse Use: DENIES., 03/30/2024 Tobacco Nicotine Use: Never (less than 100 in lifetime). Exposure to Tobacco Smoke Lives in non-smoking home., 10/13/2020 Family History Alcohol abuse: Maternal Grandfather. Arthritis: Father and Paternal Grandmother. Asthma: Maternal Grandfather. BRCA1 gene mutation detected: Mother. Breast cancer: Maternal Grandmother and Unknown. Depression: Father.Negative: Mother, Sister, Brother, Daughter, Son, Grandparent, Maternal Grandfather, Maternal Grandmother and Paternal Grandmother. Diabetes: Father. Hypertension: Father and Paternal Grandfather. Ovarian cancer: Maternal Grandmother and Unknown. Health Status Family Member(s) Immunizations SARS-CoV-2 (COVID-19) mRNA-1273 vaccine: 0 unknown unit (08/07/21) SARS-CoV-2 (COVID-19) mRNA-1273 vaccine: 0 unknown unit (10/10/20) SARS-CoV-2 (COVID-19) mRNA-1273 vaccine: 0 unknown unit (09/12/20) Digitally Signed by PATIENCE CLEVELAND MD on 05/18/2024 12:[address] [facility] [id number] Note Date of Service 05/18/2024 Chief Complaint Abdominal pain Nausea / Vomiting Subjective Patient seen and evaluated this morning. She reports some improvement in her nausea. She denies anyepisodes of vomiting overnight. She has only been able to tolerate crackers however reports after eating or drinking anything she experiences cramping abdominal pain and has an episode of diarrhea. She reports this acidic, metallic taste in her mouth from time to time. She denies fever, chills, chest pain, shortness of breath, dizziness, syncope. She is voiding spontaneously. She denies blood diarrhea. Objective Vitals and Measurements T: 36.7 C (Oral) TMIN: 36.3 C (Temporal Artery) TMAX: 36.8 C (Oral) HR: 79 RR: 19 BP: 106/73 SpO2: 97% HT: 165 cm WT: 125 kg BMI: 45.91 Intake and Output 7AM Yesterday to 7AM Today Intake and Output (Last 24 hours) Intake Administration Information 800.00 Oral Intake 240.00 Output Urine Voided 100.00 Stool Count 1.00 Total Summary Total Intake 1040.00 Total Output 100.00 Fluid Balance 940.00 Physical Exam General: A&Ox3, no apparent distress Resp: clear to auscultation bilaterally CV: Regular rate Abdomen: Soft, nonrigid, no peritoneal signs, positive bowel sounds throughout , mild tenderness topalpation, no guarding, no rebound Pelvis: No signs of active vaginal bleeding Ext: Minimal lower extremity edema. No cyanosis. Negative Homans sign Weight Dosing Weight: 125 kg (05/17/24) Dosing Weight: 125 kg (05/17/24) Medications Medications (25) Active Scheduled: (8) aspirin 81 mg Chewable 81 mg 1 tab(s), Oral, Daily atorvastatin 40 mg tablet 40 mg 1 tab(s), Oral, Daily cyclobenzaprine 5 mg tablet 5 mg 1 tab(s), Oral, TID fluoxetine 20 mg Capsule 20 mg 1 cap(s), Oral, qDay heparin 5,000 units/mL (1 mL) vial 5,000 unit(s) 1 mL, Subcutaneous, q8h letrozole 2.5 mg tablet 2.5 mg 1 tab(s), Oral, qDay loratadine 10 mg Tablet 10 mg 1 tab(s), Oral, qDay nystatin susp 100,000 units/mL 5 mL UD 500,000 unit(s) 5 mL, Swish & Swallow, q6h Continuous: (1) NS (0.9% nacl) 1,000 mL 1,000 mL, Intravenous, 100 mL/hr PRN: (16) acetaminophen 325 mg Tablet 650 mg 2 tab(s), Oral, q6hr acetaminophen 325 mg Tablet 650 mg 2 tab(s), Oral, q4h acetaminophen 650 mg Suppository 650 mg 1 supp, Rectal, q4h Al hydrox/Mg hydrox/simethicone 200-200-20 mg/5 mL Susp UD 30 mL, Oral, q2h albuterol 0.083% Soln UD (2.5mg/3 mL) 2.5 mg 3 mL, Inhalation, q6hRT bisacodyl 5 mg EC tablet 10 mg 2 tab(s), Oral, qDay clonazePAM 0.5 mg tablet 0.5 mg 1 tab(s), Oral, qDay dextrose 50% Solution Disp syringe 50 mL 12.5 gram(s) 25 mL, IV Push, AsDirected dicyclomine 10 mg capsule 20 mg 2 cap(s), Oral, QID diphenhy/antacid/lidocaine/nystatin 240 mL CMPD 10 mg, Oral, QID docusate-senna (Senokot S) 50 mg-8.6 mg Tablet 1 tab(s), Oral, BID melatonin 3 mg tablet 3 mg 1 tab(s), Oral, qHS morphine 2 mg/mL 1 mL syringe 2 mg 1 mL, IV Push, q3h ondansetron 2 mg/ 1 mL 2 mL INJ 4 mg 2 mL, IV Push, q4h oxycodone 5 mg tablet (immediate release) 5 mg 1 tab(s), Oral, q4h promethazine 25 mg Tablet 25 mg 1 tab(s), Oral, q6h Lab Results 05/18 02:24 WBC: 2.7 L Hgb: 11.0 L Hct: 32.5 L Platelet: 135 L Neutrophil %: 67.9 Glucose Level: 101 Sodium Level: 140 Potassium Level: 4.4 BUN: 19.0 Creatinine Lvl (s): 0.69 05/17 12:23 WBC: 3.5 L Hgb: 12.8 Hct: 37.3 Platelet: 151 Neutrophil %: 85.9 H Glucose Level: 129 H Sodium Level: 140 Potassium Level: 3.8 BUN: 15.0 Creatinine Lvl (s): 0.61 Imaging Results and Diagnostics CT Abd/Pelvis w/ IV Contrast Only Result Date: May 17, 2024 Verified By: MCKINLEY VERAS DO CLINICAL STATEMENT: IMPRESSION: 1. Small to moderate amount of ascites, of indeterminate etiology. Nodefinite peritoneal/omental nodularity. 2. Stable solitary homogeneous 1.2 cm enhancing mass in the liver. Findinglikely represents a benign flash fill hemangioma, but consider MRI livergiven patient's cancer history. 3. Stable wall calcifications versus wall hyperenhancement of the sigmoidcolon. No bowel obstruction. CT Angiography Chest w/ Contrast Result Date: May 17, 2024 Verified By: MCKINLEY VERAS DO CLINICAL STATEMENT: IMPRESSION: No evidence of pulmonary embolus. XR Chest 2 Views Result Date: May 17, 2024 Verified By: MCKINLEY VERAS DO CLINICAL STATEMENT: IMPRESSION: No evidence of an acute cardiopulmonary process. 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 >> Admit to Stepdown monitored floor >> Vitals: q4hr >> Activity: Up to chair >> Diet: Regular >> IVF: NS 100 ml/hr >> UOP: voiding spontaneously >> Lines: PIV >> Antifungal: Nystatin swish swallow >> DVT Prophylaxis: SCDs, Heparin 5k q8hrs >> Consults: GynOnc >> Chemotherapy related side effects: Nausea, vomiting, abdominal pain, diarrhea - Nausea not well controlled. Recommending scheduling Zofran 4 mg q4 hrs. - Pain control: Flexeril, Morphine and Tylenol per primary team, Oxycodone ordered as an alternative option. - Bentyl recommended for crampy abdominal pain. This will be changed to scheduled dosing since the patient has not received it overnight. - Adding Protonix qd to aid with reflux symptoms - C. diff PCR negative - Consult nutrition - Continue IVF hydration, advance diet as tolerated - ANC within normal limitis, no signs of neutropenia. 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 The patient had a severe paclitaxel hypersensitivity reaction with cycle 1. The patient returned for carboplatin on day 2 of herfirst cycle. She received this without incident. For cycle 2 the patient received carboplatin and docetaxel. She developed her symptoms approximately 48 hours after receiving her chemotherapy. Taken as a whole this patient is likely having a significant delayed reaction to her docetaxel. Bowel frequency is a common side effect after taxane therapy which usually last for 2 to 3 days. This patient may have a more prominent taxane related GI toxicity. We discussed her subsequent cycles of chemotherapy to be administered as carboplatin alone or carboplatin plus a second chemotherapeutic agent (nontaxane). - CA-125: 181 > 446 - Continue Letrozole, was started given rising Ca-125 level >>Anxiety -Home Fluoxetine and Clonazepam continued >> Chest pain (Resolved) - Troponin negative. EKG sinus tachycardia. ProBNP within normal limits - S/p loading dose ASA, statin started - Elevated D-Dimer, CTA chest ordered and negative for PE - Transthoracic echocardiogram pending - Cardio consult pending >> Transaminitis - Likely chemotherapy related adverse effects - On admission AST/ALT 76/89 downtrended this morning to AST/ALT 58/82 Disposition: Continue IVF, recommending scheduling antiemetics, starting Protonix, advance diet as tolerated. Awaiting cardiology consult. Patient was seen and examined with Dr. Faulkner. Anticipated Date of Discharge 1-2 days Time Spent 35 minutes Digitally Signed by ELVA TURNER MD on 05/18/2024 07:53 AM Digitally Signed by LAYO FAULKNER MD, LAYO on 05/18/2024 12:[address] [facility] [id number] Note Date of Service 05/17/2024 [employer] Oncology attending 43 yo well known to our clinic s/p course #2 carboplatin now with docetaxel course #1 ( after Taxolreaction on first course) on Thursday 05/10. Over the weekend, she developed abdominal pain, body aches, cramping, diarrhea and unable to keep food down. Reports blood spots per rectum due to frequent diarrhea. CT scan of abdomen showed ascites as expected, no carcinomatosis and no acute changes, no free air. D Dimer elevated and CT angio done and showed no pulmonary embolism. Labs: WBC 3.5, ANC 3006 H/H 12.8/37.3, plts 151,000 D Dimer 847 UA negative Electrolytes normal, Mg 1.9 AST 76 ALT 89 bili 0.9 BUN 15, Creatinine 0.61 Exam: p 82, RR 22, BP 115/71 o2 Sat 95% Awake and alert, Abdomen not distended, no pointe tenderness Mildly generally tender Ext neg IMP: N/V diarrhea dehydration s/p cycle #2 chemotherapy Now admitted for symptom control Plan: per primary service Add bentyl for cramping, oxycodone for pain, phenergan as alternative if zofran not effective. Thank you Jessica Palacio MD [employer] Oncology [phone] Digitally Signed by JESSICA PALACIO MD on 05/17/2024 08:[address] [facility] [id number] Note Date of Service 05/17/24 Chief Complaint Nausea, vomiting, diarrhea, abdominal pain Subjective 43yo female presented to ER due to nausea, vomiting, inability to tolerate PO intake, abdominal pain in the setting of vomiting, and chest pain. Patient has had 2 cycles of chemo. First cycle she had an allergic reaction to taxol, so she was switched to carboplatin / docetaxel which she received on 05/13/24. Since that time she has had the above symptoms, not relieved by her home medications. She is complicated by h/o stage IIIB low grade serous carcinoma of the ovary. Treated surgically with RA-TLH, BSO, pelvic lymph node dissection and omentectomy in 03/2024. Ca-125: 181 on 04/20/2024, 446 on 05/11/2024. As was increasing, was started on letrozole therapy. TEMPUS from 04/25/2024 shows no actionable mutations. In the ER, she received IVF, Zofran which did not lead to symptom improvement. Labs obtained overall showing transaminitis but otherwise normal. Imaging performed with CT A/P evidence of small amountascites, no obvious omental abnormalities and a 1cm likely benign liver lesion (recommend MRI follow-up). Decision was made to admit her to hospitalist service for symptom control. Objective Vitals and Measurements T: 36.3 C (Temporal Artery) HR: 82 (Monitored) RR: 22 BP: 115/71 SpO2: 95% WT: 125 kg Intake and Output 7AM Yesterday to 7AM Today Intake and Output (Last 24 hours) Intake Output Total Summary Total Intake 0.00 Total Output 0.00 Fluid Balance 0.00 Physical Exam Gen: Alert, in no acute distress CV: regular rate/rhythm, no mrg Resp: CTAB, no wheezes or rales Abdom: soft, mildly tender to palpation, distractible, nondistended. +BS. Extrem: no edema/erythema/tenderness, negative Lynn's sign Weight Dosing Weight: 125 kg (05/17/24) Medications Medications (21) Active Scheduled: (7) aspirin 81 mg Chewable 81 mg 1 tab(s), Oral, Daily atorvastatin 40 mg tablet 40 mg 1 tab(s), Oral, Daily cyclobenzaprine 5 mg tablet 5 mg 1 tab(s), Oral, TID fluoxetine 20 mg Capsule 20 mg 1 cap(s), Oral, qDay heparin 5,000 units/mL (1 mL) vial 5,000 unit(s) 1 mL, Subcutaneous, q8h letrozole 2.5 mg tablet 2.5 mg 1 tab(s), Oral, qDay loratadine 10 mg Tablet 10 mg 1 tab(s), Oral, qDay Continuous: (1) NS (0.9% nacl) 1,000 mL 1,000 mL, Intravenous, 100 mL/hr PRN: (13) acetaminophen 325 mg Tablet 650 mg 2 tab(s), Oral, q6hr acetaminophen 325 mg Tablet 650 mg 2 tab(s), Oral, q4h acetaminophen 650 mg Suppository 650 mg 1 supp, Rectal, q4h Al hydrox/Mg hydrox/simethicone 200-200-20 mg/5 mL Susp UD 30 mL, Oral, q2h albuterol 2.5 mg, Inhalation, q6hRT bisacodyl 5 mg EC tablet 10 mg 2 tab(s), Oral, qDay clonazePAM 0.5 mg tablet 0.5 mg 1 tab(s), Oral, qDay dextrose 50% Solution Disp syringe 50 mL 12.5 gram(s) 25 mL, IV Push, AsDirected diphenhy/antacid/lidocaine/nystatin 240 mL CMPD 10 mg, Oral, QID docusate-senna (Senokot S) 50 mg-8.6 mg Tablet 1 tab(s), Oral, BID melatonin 3 mg tablet 3 mg 1 tab(s), Oral, qHS morphine 2 mg/mL 1 mL syringe 2 mg 1 mL, IV Push, q3h ondansetron 2 mg/ 1 mL 2 mL INJ 4 mg 2 mL, IV Push, q4h Lab Results 05/17 12:23 WBC: 3.5 L Hgb: 12.8 Hct: 37.3 Platelet: 151 Neutrophil %: 85.9 H Glucose Level: 129 H Sodium Level: 140 Potassium Level: 3.8 BUN: 15.0 Creatinine Lvl (s): 0.61 Imaging Results and Diagnostics 05/17 CXR: no acute process 05/17 CT A/P: small amount ascites, no omental nodularity, 1cm liver mass (benign flash fill, rec liver MRI), stable signoid wall calcifications 05/17 CT chest: no evidence of PE Assessment/Plan 43yo female with 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 >>Nausea, vomiting, abdominal pain -Nausea control: Zofran per primary team, Phenergan ordered as an alternative option -Pain control: Flexeril, Morphine and Tylenol per primary team, Oxycodone ordered as an alternativeoption. Bentyl ordered for abdominal cramping. 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 Palacio Dispo: symptom control Digitally Signed by CHAYA BLUNT MD on 05/17/2024 09:[address] [facility] [id number] History and physical note Date of Service May 17, 2024 Chief Complaint pt complains of N/V and mid to low back pain. 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 Patient was started on chemotherapy on April 22, started on carboplatin Taxol however she developedanaphylactic reaction to Taxol requiring 2 doses of epinephrine. She had her second cycle of chemotherapy starting May 13. Ever since she had a chemotherapy session she has been having nausea/vomiting associate with diarrhea and abdominal pain which she described as cramps. Last night she developed intermittent chest pain, on my vision she was complaining of bilateral flank pain, denied any chest pain on my evaluation. ED course: Vital signs, labs, imaging report and EKG personally reviewed Was slightly tachycardic and tachypneic on arrival Labs on admission were reviewed CBC showed white count 3500 with left shift, UA showing trace leukocyte esterase, urine test was negative. CMP significant for mild elevated AST of 76, ALT of 89. proBNP and troponins within normal limits. Chest x-ray did not show any acute cardiopulmonary process, CT angio chest with contrast was negative for PE, CT abdominal/pelvis with IV contrast showed small to moderate amount of ascites, stable solitary homogenous 1.2 cm enhancing mass in the liver likely a benign flash fill hemangioma, stable wall calcifications versus wall hyperenhancement of the sigmoid colon. EKG on admission demonstrated sinus tachycardia with QTc of 401 ms. Review of Systems Review of systems are negative except as mentioned in HPI Physical Exam Vitals and Measurements T: 36.3 C (Temporal Artery) HR: 104 RR: 24 BP: 118/87 WT: 125 kg Weight Dosing Weight: 125 kg (05/17/24) General Appearance: Appears to be stable and in no acute distress Head: Atraumatic and normocephalic EENT: EOMI, PERRLA, no oropharyngeal erythema, no tonsillar exudates, no conjunctival injection. sclera anicteric. Neck: No thyromegaly, no cervical lymphadenopathy, trachea midline Cardiac: S1 and S2 normal. RRR. No murmurs, rubs, or gallops. No JVD. No hepatojugular reflex. Lungs: Good air entry bilaterally. No increased work for breathing. No wheezes, rhonchi, or rales. Abdomen: Soft, nontender, nondistended. Normoactive bowel sounds. No rebound or guarding. Negative Baez's sign. No hepatosplenomegaly. Musculoskeletal: Did have bilateral CVA tenderness present Extremities: No lower extremity pitting edema. 2+ radial and pedal pulses bilaterally. Neurological: No gross motor deficits Skin: No abrasions, scars, or hematomas on visible skin. No cyanosis. No purulent discharge. Psychiatric: Alert and oriented, well groomed, euthymic. cooperative Lab Results 05/17 12:23 WBC: 3.5 L Hgb: 12.8 Hct: 37.3 Platelet: 151 Neutrophil %: 85.9 H Glucose Level: 129 H Sodium Level: 140 Potassium Level: 3.8 BUN: 15.0 Creatinine Lvl (s): 0.61 WBC: 3.5 10^3/mcL Low (05/17/24 12:23:00) RBC: 4.22 10^6/mcL (05/17/24 12:23:00) Hgb: 12.8 G/dL (05/17/24 12:23:00) Hct: 37.3 % (05/17/24 12:23:00) MCV: 88.6 fL (05/17/24 12:23:00) MCH: 30.3 pg (05/17/24 12:23:00) MCHC: 34.2 G/dL (05/17/24 12:23:00) RDW: 14.6 % (05/17/24 12:23:00) Platelet: 151 10^3/mcL (05/17/24 12:23:00) MPV: 9.5 fL (05/17/24 12:23:00) Monocyte Distribution Width: 30 High (05/17/24 12:23:00) Neutrophil %: 85.9 % High (05/17/24 12:23:00) Lymphocyte %: 11.8 % Low (05/17/24 12:23:00) Monocyte %: 1.3 % Low (05/17/24 12:23:00) Eosinophil %: 0.5 % (05/17/24 12:23:00) Basophil %: 0.5 % (05/17/24 12:23:00) Neutrophil, Absolute: 3 10^3/mcL (05/17/24 12:23:00) Lymphocyte, Absolute: 0.4 10^3/mcL Low (05/17/24 12:23:00) Monocyte, Absolute: 0 10^3/mcL Low (05/17/24 12:23:00) Eosinophil, Absolute: 0 10^3/mcL (05/17/24 12:23:00) Basophil, Absolute: 0 10^3/mcL (05/17/24 12:23:00) D-Dimer HS: 847 ng/mL D-DU High (05/17/24 12:23:00) UA Specimen Type: Clean Catch (05/17/24 14:14:00) UA Color: Dark YellowNovus (05/17/24 14:14:00) UA Appear: Clear (05/17/24 14:14:00) UA Spec Grav: 1.025 (05/17/24 14:14:00) UA Glucose: Negative. (05/17/24 14:14:00) UA Bili: Negative. (05/17/24 14:14:00) UA Ketones: Trace (05/17/24 14:14:00) UA Blood: Negative. (05/17/24 14:14:00) UA pH: 6.5 (05/17/24 14:14:00) UA Protein: 30 (05/17/24 14:14:00) UA Urobilinogen: 1.0 (05/17/24 14:14:00) UA Nitrite: Negative. (05/17/24 14:14:00) UA Leuk Est: Trace (05/17/24 14:14:00) Test Urine: Negative. (05/17/24 14:14:00) test (u) int: test (u) int (05/17/24 14:14:00) Glucose Level: 129 mg/dL High (05/17/24 12:23:00) Sodium Level: 140 mEq/L (05/17/24 12:23:00) Potassium Level: 3.8 mEq/L (05/17/24 12:23:00) Chloride: 103 mEq/L (05/17/24 12:23:00) CO2: 30 mEq/L (05/17/24 12:23:00) Electrolyte Balance: 7 mEq/L (05/17/24 12:23:00) BUN: 15 mg/dL (05/17/24 12:23:00) Creatinine Lvl (s): 0.61 mg/dL (05/17/24 12:23:00) BUN/Creatinine Ratio: 24.6 ratio High (05/17/24 12:23:00) Calcium Lvl: 9.7 mg/dL (05/17/24 12:23:00) Magnesium Lvl: 1.9 mg/dL (05/11/24 12:17:00) Total Protein: 7.2 G/dL (05/17/24 12:23:00) Albumin Level: 4 G/dL (05/17/24 12:23:00) Globulin: 3.2 G/dL (05/17/24 12:23:00) A/G Ratio: 1.2 ratio (05/17/24 12:23:00) Bili Total: 0.9 mg/dL (05/17/24 12:23:00) Alk Phos: 76 U/L (05/17/24 12:23:00) AST/SGOT: 76 U/L High (05/17/24 12:23:00) ALT/SGPT: 89 U/L High (05/17/24:23:00) Iron: 37 mcg/dL Low (04/20/24 06:49:00) TIBC: 283 mcg/dL (04/20/24 06:49:00) Iron Sat: 13 % (04/20/24 06:49:00) GFR Non-: >60 (05/17/24:23:00) GFR : >60 (05/17/24 12:23:00) Lipase Level: 37 U/L (05/17/24 12:23:00) Ferritin: 62.6 ng/mL (04/20/24 06:49:00) Folate: 17.4 ng/mL (04/20/24 06:49:00) Vit. D 25-Hydroxy: 35.3 ng/mL (04/20/24 06:49:00) Vitamin B12 Lvl: 475 pg/mL (04/20/24 06:49:00) N-Terminal proBNP: <35 (05/17/24 12:23:00) High Sensitivity Troponin I: <3 (05/17/24 12:23:00) CA 125: 446 U/mL High (05/11/24 12:17:00) Imaging Results and Diagnostics CT Abd/Pelvis w/ IV Contrast Only Result Date: May 17, 2024 Verified By: MCKINLEY VERAS DO CLINICAL STATEMENT: IMPRESSION: 1. Small to moderate amount of ascites, of indeterminate etiology. Nodefinite peritoneal/omental nodularity. 2. Stable solitary homogeneous 1.2 cm enhancing mass in the liver. Findinglikely represents a benign flash fill hemangioma, but consider MRI livergiven patient's cancer history. 3. Stable wall calcifications versus wall hyperenhancement of the sigmoidcolon. No bowel obstruction. CT Angiography Chest w/ Contrast Result Date: May 17, 2024 Verified By: MCKINLEY VERAS DO CLINICAL STATEMENT: IMPRESSION: No evidence of pulmonary embolus. XR Chest 2 Views Result Date: May 17, 2024 Verified By: MCKINLEY VERAS DO CLINICAL STATEMENT: IMPRESSION: No evidence of an acute cardiopulmonary process. EKG EC05/17/24: SINUS TACHYCARDIA Compared to ECG at 04/22/2024 12:47:20 Electronic Signature: BALTAZAR HAYES MD 05/17/2024 16:17:54 Assessment/Plan Patient is admitted to stepdown monitored bed for likely acute gastroenteritis, musculoskeletal abdominal pain, chest pain. Case discussed with ED physician Assessment: Acute gastroenteritis versus chemotherapy-induced nausea/vomiting/diarrhea Chest pain Musculoskeletal abdominal pain Stage IIIb low-grade serous carcinoma of ovary Plan: -Her presentation with nausea/vomiting/diarrhea and abdominal cramps seems consistent with either chemotherapy induced side effects versus acute gastroenteritis. Symptomatic treatment for now. IV fluids, IV morphine as needed for pain, IV Zofran as needed for nausea/vomiting. Ordered diarrhea workup including stool culture, stool for C. difficile, stool GI panel as well as fecal leukocytes and Shiga toxin 1 and 2. -She has been having intermittent chest pain since yesterday, full dose aspirin ordered in the ER. CTA chest negative for PE, aspirin and statin for now. Echocardiogram ordered, cardiology consulted. -She did have bilateral flank tenderness and lower back pain that is likely musculoskeletal in nature, IV morphine as needed for pain, added oral Flexeril. -Stage IIIb serous carcinoma of ovary currently on chemotherapy, resume home medication letrozole, [facility] [facility]/ONC consulted per their request DVT prophylaxis: SCDs Heparin subcu Note was written using Exp[employer] environmental technical officer software. Some of the meaning of the words and sentences might have changed during environmental technical officer, if there was ever some confusion about the meaning of some sentences, please do not hesitate to contact me. Problem List/Past Medical History Ongoing Anxiety with depression Family history of breast cancer in mother Primary low grade serous adenocarcinoma of ovary Historical Acute superficial venous thrombosis of lower extremity Procedure/Surgical History LEEP: 2008 Colposcopy: 2008 Appendectomy: 2002 Medications Home Medications (8) Active albuterol MDI (90 mcg/inh) CFC free inhalation aerosol 1 puff(s), PRN, Inhalation, q4h Claritin 10 mg oral tablet 10 mg = 1 tab(s), Oral, qDay clonazePAM 0.5 mg oral tablet 0.5 mg = 1 tab(s), PRN, Oral, qDay dexAMETHasone 4 mg oral tablet See Instructions FLUoxetine 20 mg oral capsule 20 mg = 1 cap(s), Oral, qDay letrozole 2.5 mg oral tablet 2.5 mg = 1 tab(s), Oral, qDay Magic mouthwash (Hqezhksp-Uednjx-Xtfpobddk-Mycostatin) See Instructions ondansetron 4 mg oral tablet 4 mg = 1 tab(s), Oral, q6h Allergies Taxol(Severe) anaphylaxis Social History Alcohol Use: Current. Frequency: 1-2 times per year., 03/30/2024 Home/Environment Living situation: Home/Independent. Safe place to go: Yes. Domestic Concerns: Amberly., 04/03/2024 Nutrition/Health Caffeine intake amount: 1-2 servings per week., 10/13/2020 Sexual Sexually active: Yes. Current partners: 1. History of sexual abuse: No., 03/10/2024 Substance Abuse Use: AMBERLY., 03/30/2024 Tobacco Nicotine Use: Never (less than 100 in lifetime). Exposure to Tobacco Smoke Lives in non-smoking home., 10/13/2020 Family History Alcohol abuse: Maternal Grandfather. Arthritis: Father and Paternal Grandmother. Asthma: Maternal Grandfather. BRCA1 gene mutation detected: Mother. Breast cancer: Maternal Grandmother and Unknown. Depression: Father.Negative: Mother, Sister, Brother, Daughter, Son, Grandparent, Maternal Grandfather, Maternal Grandmother and Paternal Grandmother. Diabetes: Father. Hypertension: Father and Paternal Grandfather. Ovarian cancer: Maternal Grandmother and Unknown. Health Status Family Member(s) Immunizations SARS-CoV-2 (COVID-19) mRNA-1273 vaccine: 0 unknown unit (08/07/21) SARS-CoV-2 (COVID-19) mRNA-1273 vaccine: 0 unknown unit (10/10/20) SARS-CoV-2 (COVID-19) mRNA-1273 vaccine: 0 unknown unit (09/12/20) Code Status Full code Digitally Signed by ESSIE CRANDALL MD on 05/17/2024 06:01 PM Digitally Signed by ESSIE CRANDALL MD on 05/17/2024 07:[address] [phone] Note ORIGINAL EXAMINATION: CT OF THE ABDOMEN AND PELVIS WITH CONTRAST05/17/2024 2:[address] ABDOMEN/PELVIS WITH CONTRAST Multiple axial images were obtained with coronal and sagittal reconstructions. CLINICAL INFORMATION: TECHNIQUE: CT of the abdomen and pelvis was performed with the administration of intravenous contrast. Multiplanar reformatted images are provided for review. Automated exposure control, iterative reconstruction, and/or weight based adjustment of the mA/kV was utilized to reduce the radiation dose to as low as reasonably achievable. COMPARISON: CT abdomen pelvis 04/08/2024. HISTORY: ORDERING SYSTEM PROVIDED HISTORY: Reason for Exam: PT STATES SOB, CHEST PAIN, ABD PAIN, MID BACK PAIN X LAST SATURDAY, HX OF OVARIAN CA [id number]^ FINDINGS: Lung bases/lower mediastinum: Please see same day CT chest.. Liver: Stable homogeneous enhancing 1.3 cm mass in the right hepatic lobe (axial image 30/134). Gallbladder/bile ducts: Unremarkable. Pancreas: Unremarkable. Spleen: Unremarkable. Adrenal glands: Unremarkable. Kidney/ureter/bladder: Symmetric enhancement of the kidneys. Stable subcentimeter hypodensity in left inferior renal pole, too small to further characterize but likely represents a cyst. No hydronephrosis. The ureters are nondilated. The urinary bladder is decompressed limiting its evaluation. Bowel: There is a small hiatal hernia, unchanged. Status post appendectomy. No evidence of dilated bowel to suggest bowel obstruction. Stable hyperdense calcifications versus hyperenhancement in the distal sigmoid colon. There is no significant diverticulosis. Small fat containing umbilical hernia. Free air/Free Fluid: No evidence of pneumoperitoneum. There is a small-moderate amount of ascites, seen surrounding the liver, spleen, both lower quadrants and within the pelvis. Reproductive organs: Status post hysterectomy. The ovaries are not definitively visualized. No definite enhancing omental or peritoneal lesion. Vascular/lymph nodes: No aortic aneurysm or lymphadenopathy by size criteria. Bones/soft tissues: No evidence of acute fracture or aggressive osseous lesion. There is degenerative change of the spine. IMPRESSION: 1. Small to moderate amount of ascites, of indeterminate etiology. No definite peritoneal/omental nodularity. 2. Stable solitary homogeneous 1.2 cm enhancing mass in the liver. 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 3. Stable wall calcifications versus wall hyperenhancement of the sigmoid colon. No bowel obstruction. Interpreted by: Mckinley Veras Preliminary Report By: Mckinley Veras Electronically signed By Mckinley Veras Dictated Date: 05/17/2024 2:51:12 PM Prelim Date: 05/17/2024 3:04:06 PM Sign Date: 05/17/2024 3:04:06 PM Ordering Provider: [facility]09-01-2024 Note ORIGINAL EXAMINATION: CTA OF THE CHEST05/17/2024 2:40 pm CTA CHEST WITH CONTRAST TECHNIQUE: CTA of the chest was performed after the administration of intravenous contrast. Multiplanar reformatted images are provided for review. MIP images are provided for review. Automated exposure control, iterative reconstruction, and/or weight based adjustment of the mA/kV was utilized to reduce the radiation dose to as low as reasonably achievable. CTA of the thorax was acquired in the axial plane. Coronal and sagittal reformatted images were reviewed. Three dimensional reconstructions were created on a separate workstation. This exam was performed according to our departmental dose optimization program, and includes the following measures where applicable: automated exposure control, adjustment of the mAs and/or kVp according to patient size and/or exam, and an iterative reconstruction algorithm. COMPARISON: None HISTORY: ORDERING SYSTEM PROVIDED HISTORY: Reason for Exam: PT STATES SOB, CHEST PAIN, ABD PAIN, MID BACK PAIN X LAST SATURDAY, HX OF OVARIAN CA CP, suspect PE FINDINGS: Pulmonary Arteries:Main pulmonary artery is nondilated. Contrast bolus is adequate to exclude pulmonary arterial embolus to the segmental level. No evidence of right heart strain. Mediastinum: There is a right chest venous catheter which terminates at the right atrium. Thoracic aorta is normal in size. Heart is normal in size. No pericardial effusion. No pathologically enlarged mediastinal or hilar lymph nodes by size criteria. Lungs: Central tracheobronchial tree is patent. No focal consolidation, pneumothorax, or pleural effusion. No suspicious pulmonary nodules. Upper Abdomen:Limited evaluation is fully evaluated on same day CT abdomen/pelvis. Bones/Soft Tissues: No evidence of acute fracture. There are mild degenerative changes in the spine. The soft tissues are unremarkable. IMPRESSION: No evidence of pulmonary embolus. Interpreted by: Mckinley Veras Preliminary Report By: Mckinley Veras Electronically signed By Mckinley Veras Dictated Date: 05/17/2024 2:44:41 PM Prelim Date: 05/17/2024 2:51:02 PM Sign Date: 05/17/2024 2:51:02 PM Ordering Provider: BALTAZAR [facility]09-01-2024 Evaluation + Plan noteExtracted from: Title:History and Physical Author:ESSIE CRANDALL MD Date:05/17/24 Patient is admitted to stepd own monitored bed for likely acute gastroenteritis, musculoskeletal abdominal pain, chest pain. Case discussed with ED physician Assessment: Acute gastroenteritis versus chemotherapy-induced nausea/vomiting/diarrhea Chest pain Musculoskeletal abdominal pain Stage IIIb low-grade serous carcinoma of ovary Plan: -Her presentation with nausea/vomiting/diarrhea and abdominal cramps seems consistent with either chemotherapy induced side effects versus acute gastroenteritis. Symptomatic treatment for now. IV fluids, IV morphine as needed for pain, IV Zofran as needed for nausea/vomiting. Ordered diarrhea workup including stool culture, stool for C. difficile, stool GI panel as well as fecal leukocytes and Shiga toxin 1 and 2. -She has been having intermittent chest pain since yesterday, full dose aspirin ordered in the ER. CTA chest negative for PE, aspirin and statin for now. Echocardiogram ordered, cardiology consulted. -She did have bilateral flank tenderness and lower back pain that is likely musculoskeletal in nature, IV morphine as needed for pain, added oral Flexeril. -Stage IIIb serous carcinoma of ovary currently on chemotherapy, resume home medication letrozole, [employer]/ONC consulted per their request DVT prophylaxis: SCDs Heparin subcu Note was written using Exp[employer] environmental technical officer software. Some of the meaning of the words and sentences might have changed during environmental technical officer, if there was ever some confusion about the meaning of some sentences, please do not hesitate to contact me. Future Appointments Appointment Date:06/01/2024 12:00:00 PM Scheduled Provider: Location:INF Appointment Type:INF/OSP Labwork Appointment Date:06/03/2024 08:30:00 AM Scheduled Provider: Location:INF Appointment Type:INF/OSP Labwork Appointment Date:06/03/2024 09:00:00 AM Scheduled Provider:PETER FERRIS Location:[facility] Appointment Type:SO OV Chemo Appointment Date:06/03/2024 09:30:00 AM Scheduled Provider: Location:INF Appointment Type:INF Chemo: Infusion 240 min (4 hours) Future Scheduled Tests Laboratory* [facility] [place]Blood Specimens) 03/24/24 * [facility] [place] (Blood Specimens) 03/10/24 Radiology* CT Thorax w/ Contrast 05/19/24 * CT Abd/Pelvis w/ IV Contrast Only 03/24/24 [facility] 09-01-2024 Note ORIGINAL EXAMINATION: TWO XRAY VIEWS OF THE CHEST05/17/2024 12:38 pm CHEST AP/PA and LATERAL COMPARISON: 03/30/2024 chest radiograph HISTORY: ORDERING SYSTEM PROVIDED HISTORY: Reason for Exam: CHEST [id number]^ FINDINGS: Lines/Tubes: Interval placement of a right chest Port-A-Cath; tip projects over the cavoatrial junction. Medical devices overlie the right chest. Lungs: No evidence of a focal consolidation, pneumothorax, or pleural effusion. Heart/Mediastinum: Within normal limits of size. Bones/Soft Tissues: No acute fractures are identified. The soft tissues are unremarkable. IMPRESSION: No evidence of an acute cardiopulmonary process. Interpreted by: Mckinley Veras Preliminary Report By: Mckinley Veras Electronically signed By Mckinley Veras Dictated Date: 05/17/2024 12:42:33 PM Prelim Date: 05/17/2024 12:44:26 PM Sign Date: 05/17/2024 12:44:26 PM Ordering Provider: [facility]09-01-2024 NoteSINUS TACHYCARDIA Compared to ECG at 04/22/2024 12:47:20 Electronic Signature: BALTAZAR HAYES MD 05/17/2024 16:17:54[facility] 08-28-2024 Summary of episode note JESSICA ALARCON :1980 Visit Date:05/13/2024 Your Visit Summary Your Diagnosis Carcinoma of ovary, stage 3 Elevated CA-125 Your Care Team Attending Physician - PETER FERRIS Primary Care Physician - RADHA, ADAN D COMPRESSOR ASSEMBLER-UPKEEP WORKER Vitals Temperature (Oral) 98.1 F (36.7 C) Heart Rate 73 Respiratory Rate 16 Blood Pressure 120/79 Height 65.00 in (165.1 cm) Weight 276.73 lb (125.5 kg) BMI 46.04 What to do next Instructions From Your Doctor You have received the following therapy today: Chemotherapy/Immunotherapy Call your physician if any of the following problems occur: Nausea/Vomiting Mouth Sores Diarrhea Fever Prolonged bleeding or easy bruising Pain or discomfort at the injection site Scheduled Follow-Up Appointments Appointment Type When With Where Contact Information StatusCT Chest w/ Contrast 05/15/2024 09:30 AMEDT [facility] [phone] Confirmed INF/OSP Labwork 06/01/2024 12:00 PM EDT Infusion Therapy Confirmed INF/OSP Labwork 06/03/2024 08:30 AM EDT Infusion Therapy Confirmed SO OV Chemo 06/03/2024 09:00 AM EDT PETER FERRIS COMPRESSOR ASSEMBLER-UPKEEP WORKER [facility] [address] [place] [id number] Confirmed INF Chemo: Infusion 240 min (4 hours) 06/03/2024 09:30 AM EDT Infusion Therapy Confirmed Medications What How Much When Why Instructions Unchanged albuterol (albuterol MDI (90 mcg/ inh) CFC free inhalation aerosol) 1 puff(s) by inhalation Every 4 hours as needed for as needed for wheezing Unchanged apixaban (Eliquis 2.5 mg oral tablet) 1 tab(s) by mouth Two (2) times a day Primary low grade serous adenocarcinoma of ovary Post-operative state Skin candidiasis Duration: 14 Days Unchanged clonazePAM (clonazePAM 0.5 mg oral tablet) 0.5 tab(s) by mouth Once a day Unchanged dexAMETHasone (dexAMETHasone 4 mg oral tablet) See instructions 2 tabs twice a day, the day before chemo. Unchanged diphenhydrAMINE (Magic mouthwash (Jhovrech-Cqlebm-Yechhmtiw-Mycostatin)) See instructions 2 teaspoonful(s)swish and swallow q 4 hrs as needed for mouth sores. Do not eat or drink for 30 minafter taking. Unchanged FLUoxetine (FLUoxetine 20 mg oral capsule) 1 cap by mouth Once a day Unchanged letrozole (letrozole 2.5 mg oral tablet) 1 tab(s) by mouth Once a day Carcinoma of ovary, stage 3 Elevated CA-125 Duration: 90 Days Unchanged loratadine (Claritin 10 mg oral tablet) 1 tab(s) by mouth Once a day Unchanged multivitamin (Multivitamin) 1 tab(s) by mouth Once a day Unchanged ondansetron (ondansetron 4 mg oral tablet) 1 tab(s) by mouth Every 6 hours prn nausea Allergies Taxol(Severe) anaphylaxis Additional Information VACCINATE! IT SAVES LIVES! Members of the community who have not yet received the COVID-19 vaccine and would like to receive it can visit one of [facility] vaccine clinics. There are many vaccine clinic locations within the [facility]. For locations and available times, please visit www.[email or web address].[email or web address]/. It is important to note that some COVID mobile vaccine clinics are held outdoors and may be canceled in rainy or stormy conditions. To learn more about pediatric vaccinations (ages 5-11), we invite you to visit the [facility] webpage. [email or web address]/[email or web address] [email or web address] learn more about the COVID-19 vaccine, we invite you to visit the CDC website for a list of frequently asked questions. https://www.cdc.gov/coronavirus/2019-ncov/vaccines/faq.html [facility] Patient Portal Access Instructions: Stay connected with your healthcare team and access your personal medical information anytime with the [employer] Patient Portal.If you would like a full copy of your medical records, please contact the [facility] Medical Records Department, Saturday through Saturday between 8a.m. and 4:30p.m. Please follow the directions below to access the portal: 1.Access the email account you provided upon registration to the hospital.2.Look for an invitation email from [facility].3.Open the email and access the invitation link: Accept Invitation to [facility]4.Fill in the required schneider to create your account. Sign into [email or web address] with your username and password that you created in the above steps to stay up to date. You can then view a summary of results, a summary of your visits, and the ability to download your summaries to your computer or send the information securely to a physician. Remember that your healthcare information is confidential, so carefully consider who you will allow to register on the [employer] Patient Portal for access to your information. You can also access the [employer] Patient Portal on the play140. Simply click on Health Records under R&L and then click on the [employer] logo. HOW TO SAFELY DISPOSE OF PRESCRIPTION MEDICATIONS Please use one of the following methods to safely dispose of your unused medications. 1.Use a drug disposal kit: the drug disposal pouch allows you to safely discard your old and unuseddrugs. Ask your nurse to give you one when you are discharged.2.Visit a local take-back location: Many local pharmacies and police departments have programs that collect old and unwanted prescriptiondrugs. Call your local pharmacy or go to http://MexxBooks.AllPeers/2S5Hb1c to find one close to you.3.Make use of household items: Use cat litter or old coffee grounds to dispose medications if other options arenot available. Mix your drugs with these household products, seal them in an airtight container andthrow it into the garbage. Call [facility]: [phone] to be sure your drugs can be disposed of in this way. Some medicines may require a different approach.4.Never flush your medications down the toilet. IF YOU HAVE BEEN PRESCRIBED AN OPIOID FOR PAIN If you have been prescribed an opioid (such as hydrocodone, oxycodone or morphine), it is critical to understand the possible side effects and risks of opioid pain medications. Even when taken as directed, opioids can have several side effects including: Tolerance, meaning you might need to take more of a medication for the same pain relief. Nausea, vomiting and/or constipation. Sleepiness, dizziness, dry mouth, confusion, depression or itching. Physical dependence, meaning you have withdrawal symptoms when a medication is stopped, can develop within a few days. KNOW YOUR RESPONSIBILITIES It is important to know exactly how much and how often to take the opioid pain medications you are prescribed. Never take opioids in higher amounts or more often than prescribed. Do not combine opioids with alcohol or other drugs that cause drowsiness, such as benzodiazepines, also known as benzos, including diazepam and alprazolam, muscle relaxants or sleep aids. Never sell or share prescription opioids. This is illegal. Store opioids in a secure place and out of reach of others (including children, family, friends and visitors). The last page of this document has been signed and retained as a CHART COPY. Signatures Patient Education Materials Medication Leaflets My discharge plan and instructions have been reviewed and explained to me and I,JESSICA ALARCON understand my current condition and have read and understand these discharge instructions. I have received a written copy of the plan/instructions. If I have questions, I am aware that I should contact my doctor. 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 Interventional radiology Progress note Interventional Radiology Port Site Check Reason for Visit Port site check HPI Patient had a Right chest port placed on 04/20/2024. Patient presents today for follow up and wound check. Patient states tenderness and bruising are gradually improving. The port has been accessed without issue. Allergies (1) ActiveSeverityReaction TaxolSevereanaphylaxis Home Medications (9) Active albuterol MDI (90 mcg/inh) CFC free inhalation aerosol 1 puff(s), PRN, Inhalation, q4h Claritin 10 mg oral tablet 10 mg = 1 tab(s), Oral, qDay clonazePAM 0.5 mg oral tablet 0.25 mg = 0.5 tab(s), Oral, qDay dexAMETHasone 4 mg oral tablet See Instructions Eliquis 2.5 mg oral tablet 2.5 mg = 1 tab(s), Oral, BID FLUoxetine 20 mg oral capsule 20 mg = 1 cap(s), Oral, qDay Magic mouthwash (Zdrrnwut-Hxlhig-Reomnucmo-Mycostatin) See Instructions Multivitamin 1 tab(s), Oral, qDay ondansetron 4 mg oral tablet 4 mg = 1 tab(s), Oral, q6h Problem List/Past Medical History Anxiety with depression Asthma BMI 45.0-49.9, adult Family history of breast cancer in mother Glasses Pelvic mass Personal history of COVID-19 Primary low grade serous adenocarcinoma of ovary Seasonal allergy Surgical History LEEP: 2008 Colposcopy: 2008 Appendectomy: 2002 Family History Mother: BRCA1 gene mutation detected Father: Arthritis; Depression; Diabetes; Hypertension Maternal Grandfather: Alcohol abuse; Asthma Paternal Grandmother: Arthritis Maternal Grandmother: Breast cancer; Ovarian cancer Paternal Grandfather: Hypertension Unknown (Paternal Great Aunt): Breast cancer; Ovarian cancer Social History Alcohol Details: Use: Current. Frequency: 1-2 times per year. Home/Environment Details: Living situation: Home/Independent. Safe place to go: Yes. Domestic Concerns: Denies. Nutrition/Health Details: Caffeine intake amount: 1-2 servings per week. Sexual Details: Sexually active: Yes. Current partners: 1. History of sexual abuse: No. Substance Abuse Details: Use: DENIES. Tobacco Details: Nicotine Use: Never (less than 100 in lifetime). Exposure to Tobacco Smoke Lives in non-smoking home. Physical Exam Vitals: Nxpkdhbuefy41.9 (14:28) Systolic Blood Caqbjdgl900 (14:28) Diastolic Blood Kpodyeeb37 (14:28) Pulse92 (14:28) LbS743 (14:28) Respiratory RateNo result General: Alert, cooperative. Chest port site: Port site and neck insertion site show no signs of redness, swelling, edema or drainage. The incision appears to be healing well. At either end of the incision is a 1mm raised bump, likely the Vicryl sutures. Patient reassured these will likely fall out and site will continue to heal. The remainder of the physical exam is noncontributory. Assessment/Treatment Plan Expected post procedure findings. Continue with use of port. Discharge Plan Patient to be discharged home. Reina Woods PA-C Interventional Radiology IR Dept: [phone] Available on cortext Digitally Signed by REINA WOODS PA-C on 05/04/2024 03:[address] [id number] Evaluation + Plan noteExtracted from: Title:IR pre procedure H&P Author:ANABELL PRADO PA-C Date:04/20/24 Interventional Radiology Focused Preprocedure History/Physical Reason for Visit poor venous access, chemo History of Presenting Illness/Planned IR Procedure Ovarian cancer. Patient needs port for chemotherapy access. Last dose of Eliquis was 04/16/2024 Allergies (1) ActiveSeverityReaction NKANone Documented Home Medications (7) Active albuterol MDI (90 mcg/inh) CFC free inhalation aerosol 1 puff(s), PRN, Inhalation, q4h Augmentin 500 mg-125 mg oral tablet 1 tab(s), Oral, q12h clonazePAM 0.5 mg oral tablet 0.25 mg = 0.5 tab(s), Oral, qDay Eliquis 2.5 mg oral tablet 2.5 mg = 1 tab(s), Oral, BID FLUoxetine 20 mg oral capsule 20 mg = 1 cap(s), Oral, qDay Multivitamin 1 tab(s), Oral, qDay ondansetron 4 mg oral tablet 4 mg = 1 tab(s), Oral, q6h Problem List/Past Medical History Anxiety with depression Asthma BMI 45.0-49.9, adult Family history of breast cancer in mother Glasses Pelvic mass Personal history of COVID-19 Primary low grade serous adenocarcinoma of ovary Seasonal allergy Surgical History LEEP: 2008 Colposcopy: 2008 Appendectomy: 2002 Family History Mother: BRCA1 gene mutation detected Father: Arthritis; Depression; Diabetes; Hypertension Maternal Grandfather: Alcohol abuse; Asthma Paternal Grandmother: Arthritis Maternal Grandmother: Breast cancer; Ovarian cancer Paternal Grandfather: Hypertension Unknown (Paternal Great Aunt): Breast cancer; Ovarian cancer Social History Alcohol Details: Use: Current. Frequency: 1-2 times per year. Home/Environment Details: Living situation: Home/Independent. Safe place to go: Yes. Domestic Concerns: Denies. Nutrition/Health Details: Caffeine intake amount: 1-2 servings per week. Sexual Details: Sexually active: Yes. Current partners: 1. History of sexual abuse: No. Substance Abuse Details: Use: DENIES. Tobacco Details: Nicotine Use: Never (less than 100 in lifetime). Exposure to Tobacco Smoke Lives in non-smoking home. Physical Exam Vitals: Inggafgipcd00.8 (06:53) Systolic Blood Lijkiwld594 (06:53) Diastolic Blood Khfmyqpw37 (06:53) Pulse84 (06:53) XcG739 (06:53) Respiratory RateNo result General: Alert, cooperative. Lungs clear Heart RRR The remainder of the physical exam is noncontributory. Labs Anticoagulation Labs No qualifying data available. Last Month Basic Metabolic Panel: Hematology: Sodium Level: 142 (04/08/24) Hgb: 11.8 (04/20/24) Potassium Level: 4.0 (04/08/24) : () Phosphorus: ------ WBC: 8.9 (04/20/24) Magnesium Lvl: ------ Platelet: 242 (04/20/24) BUN: 16 (04/08/24) PT International Ratio: ------ Creatinine Lvl (s): 0.88 (04/08/24) : () Additional - Last Month A/G Ratio: 1.2 (03/25/24) ABO/Rh Interp: O POS (04/03/24) ABSC Interp (Gel): Negative ABSC (04/03/24) Albumin Level: 3.7 (03/25/24) Alk Phos: 78 (03/25/24) ALT/SGPT: 24 (03/25/24) AST/SGOT: 14 (03/25/24) Basophil %: 0.3 (04/20/24) Basophil, Absolute: 0.0 (04/20/24) Bili Total: 0.4 (03/25/24) BUN/Creatinine Ratio: 18 (04/08/24) CA 125: 76.0 (03/25/24) CA 19-9: 23.2 (03/25/24) Calcium Lvl: 9.3 (04/08/24) CEA: 0.5 (03/25/24) Chloride: 106 (04/08/24) CO2: 32 (04/08/24) Culture Blood: See Result (04/08/24) Electrolyte Balance: 4.0 (04/08/24) Eosinophil %: 2.5 (04/20/24) Eosinophil, Absolute: 0.2 (04/20/24) FSH: 3.2 (03/25/24) GFR : 85 (04/08/24) GFR Non-: 70 (04/08/24) Globulin: 3.2 (03/25/24) Glucose Level: 97 (04/08/24) Hct: 34.6 (04/20/24) LC Order Number: [id number] (03/25/24) LC Test Name: Test Name (03/25/24) Lymphocyte %: 17.6 (04/20/24) Lymphocyte, Absolute: 1.6 (04/20/24) MCH: 30.3 (04/20/24) MCHC: 34.3 (04/20/24) MCV: 88.4 (04/20/24) Misc Test Result: COMMENT (03/25/24) Monocyte %: 8.4 (04/20/24) Monocyte Distribution Width: 18.55 (04/08/24) Monocyte, Absolute: 0.8 (04/20/24) MPV: 9.9 (04/20/24) Neutrophil %: 71.2 (04/20/24) Neutrophil, Absolute: 6.3 (04/20/24) RBC: 3.91 (04/20/24) RDW: 14.2 (04/20/24) Total Protein: 6.9 (03/25/24) UA Appear: Clear (04/08/24) UA Bili: Negative (04/08/24) UA Blood: Trace (04/08/24) UA Color: Yellow (04/08/24) UA Glucose: Negative (04/08/24) UA Ketones: Negative (04/08/24) UA Leuk Est: Negative (04/08/24) UA Nitrite: Negative (04/08/24) UA pH: 5.5 (04/08/24) UA Protein: Negative (04/08/24) UA Spec Grav: 1.020 (04/08/24) UA Specimen Type: Clean Catch (04/08/24) UA Urobilinogen: 0.2 (04/08/24) Urine POC: Negative (04/03/24) Assessment/Treatment Plan Image guided port insertion Post Procedure Discharge Plan Patient to be discharged home. _ Future Appointments Appointment Date:04/22/2024 08:30:00 AM Scheduled Provider: Location:INF Appointment Type:INF Labwork Appointment Date:04/22/2024 09:00:00 AM Scheduled Provider:PETER FERRIS Location:[facility] Appointment Type:SO OV Chemo Appointment Date:04/22/2024 09:30:00 AM Scheduled Provider: Location:INF Appointment Type:INF Chemo: Infusion 240 min (4 hours) Appointment Date:05/04/2024 02:00:00 PM Scheduled Provider: Location:IR Appointment Type:IR Procedure Follow Up Appointment Date:05/11/2024 12:00:00 PM Scheduled Provider: Location:INF Appointment Type:INF Labwork Appointment Date:05/13/2024 07:45:00 AM Scheduled Provider: Location:INF Appointment Type:INF Labwork Appointment Date:05/13/2024 08:20:00 AM Scheduled Provider:PETER FERRIS Location:[facility] Appointment Type:SO OV Chemo Appointment Date:05/13/2024 09:00:00 AM Scheduled Provider: Location:INF Appointment Type:INF Chemo: Infusion 240 min (4 hours) Appointment Date:06/01/2024 12:00:00 PM Scheduled Provider: Location:INF Appointment Type:INF Labwork Appointment Date:06/03/2024 08:30:00 AM Scheduled Provider: Location:INF Appointment Type:INF Labwork Appointment Date:06/03/2024 09:00:00 AM Scheduled Provider:PETER FERRIS Location:[facility] Appointment Type:SO OV Chemo Appointment Date:06/03/2024 09:30:00 AM Scheduled Provider: Location:INF Appointment Type:INF Chemo: Infusion 240 min (4 hours) Future Scheduled Tests Laboratory* [facility] Lab Send out (Blood Specimens) 03/24/24 * [facility] Lab Send out (Blood Specimens) 03/10/24 Radiology* IR Procedure Follow Up 05/04/24 * CT Abd/Pelvis w/ IV Contrast Only 03/24/24 [facility] 08-05-[facility] Hospital Discharge instructions Patient Education 04/20/2024 10:36:07 Radiology- Port Placement (CUSTOM) WALES Port Placement Discharge Instructions Interventional Radiology [facility] [address] [address] Your physician has requested that you have a port placed. The port is usually placed in the upper chest and lies completely under the skin. A special needle is used to access the port when needed. The port will allow for frequent intravenous medication administration or blood draws without startingan IV each time. The port can be left in place for several years and can be removed when your physician feels it is no longer needed during a short procedure. Diet: Resume your normal diet as tolerated. Activity: Avoid strenuous activity for 3 days. You will need to sponge bathe for the first 3 days. After 3 days, you may shower. Do not submerge the site in the bath tub, swimming pool, or hot tub for 7 days. Dressing: Keep the incision site dry for 3 days. Remove the dressing after three days and leave it open to air. Do not remove the steri-strips. They will come off on their own in time. Pain Control: Ncgs-nvb-lyughqd pain medication should be used for pain or discomfort. Please check with the physician who sent you for this procedure for their specific recommendations. If you were sedated for this procedure: Avoid alcoholic beverages for 24 hours after your procedure. Do not drive or operate heavy machinery for 24 hours after your procedure. Do not make any legal decisions for 24 hours after your procedure. Medication: Please resume on Site Care: Carry your card with port information at all times. All blood samples should be taken from the port. Your port will need flushed every 4 weeks when not in use. Please talk with the physician who ordered the port to coordinate this. Ask your primary physician for a prescription for EMLA Cream. This cream can be applied over the port site to numb the skin when you know the port is going to be accessed. When to seek medial care: Foul odor, pus drainage, redness, or swelling at puncture site. Excessive bleeding from puncture site. Fever greater than 101 degrees and chills. If you experience any of these issues during the first 24 hours, please follow the instruction below: 8:00 am- 5:00 pm call [phone] After 5:00 pm call [phone] After 24 hours, contact the physician who ordered this procedure for you. Special Instructions: Follow Up Care 04/13/2024 14:39:23 With:JESSICA PALACIO MD Address: [address] [place] [address] [place] [address]- [phone] When: Unknown Comments:Follow-up as scheduled [facility] 08-05-2024 NoteORIGINAL PROCEDURE: Ultrasound and fluoroscopic guided internal jugular vein chest port placement performed on 04/20/2024. INDICATION: Vascular access for chemotherapy. TECHNIQUE/FINDINGS: The procedure was performed in the VIR Suite following informed consent and a Time Out. The patient received preprocedure IV antibiotics. Local anesthesia was obtained using 2% lidocaine with epinephrine. With the patient in the supine position, the right neck and upper chest were prepped and draped in the usual sterile fashion. Procedure performed with all elements of maximal sterile barrier technique, hand hygiene, skin preparation, and sterile ultrasound techniques. The right internal jugular vein was evaluated by ultrasound and was found to be widely patent. An appropriate skin entry site was identified using ultrasound. The right internal jugular vein was accessed using a 21-G needle using ultrasound guidance. A sonographic image was captured and archived at the time of needle access. A 0.018 inch guidewire was advanced into the vein using fluoroscopic guidance. A 5-F micropuncture catheter was placed over the guidewire. A site several centimeters below the inferior margin of the clavicle was identified as the port reservoir pocket. A transverse incision was made with a #15 blade scalpel and a port pocket was created using blunt dissection. The catheter was tunneled through the chest incision to the lateral neck dermatotomy. The port was placed into the subcutaneous pocket. Using the intravascular length measured by the 0.018 inch guidewire, the catheter was cut to its final length. Using fluoroscopic guidance, the micropuncture catheter was exchanged over a 0.035 inch guidewire for a peel-away sheath. The port catheter was advanced through the peel-away sheath and positioned with the tip in the upper right atrium. A fluoroscopic image was obtained which confirmed the tip of the catheter in the upper right atrium. The port was accessed with a Bautista needle and the catheter lumen aspirated and flushed freely. The catheter lumen was flushed with Heparin 100 units / mL. The port was left without an access needle. The right neck dermatotomy incision was closed with a skin adhesive. The port pocket insertion incision was closed with interrupted subcutaneous 4-0 Vicryl sutures and skin adhesive. The port was dressed in the usual fashion. There were no immediate complications. The patient tolerated the procedure well. Total Fluoroscopy Time: 1.1 minutes. Reference Air Kerma (BELINDA): 14 mGy. Intra-Service Time (Moderate Sedation): 60 minutes. Patient Monitoring: I personally supervised and directed an independent trained observer who assisted in monitoring the patient's level of consciousness and physiological status throughout the procedure. IMPRESSION: Successful placement of a single lumen 8-F chest Power Port via the right internal jugular vein. Interpreted by: Jeanne Stanley MD Preliminary Report By: Jeanne Stanley MD Electronically signed By Jeanne Stanley MD Dictated Date: 04/20/2024 12:24:32 PM Prelim Date: 04/20/2024 12:25:05 PM Sign Date: 04/20/2024 12:25:05 PM Ordering Provider: [facility] ([place])04-20-2024 Note* Cydney Jameson RN: SIGN, AUTHOR, PERFORM Event Display: IR Procedure Record Authored Date: [id number] IR Procedure Record Summary Primary Physician: JEANNE STANLEY MD Finalized Date/Time: 04/20/24 10:08:51 Pt. Name: JESSICA ALARCON /Sex: 1980 Female Med Rec #: [id number] Physician: Financial #: [id number] Pt. Type: S Room/Bed: 0138/A Admit/Disch: 04/20/24 06:05:07 - Institution: Allergies identified in patient's electronic medical record at time of printing on 04/20/24 Entry 1 Substance NKA Reaction Type Allergy Last Modified By: Chyna Mcnulty LPN 10/13/20 08:00:04 Case Attendance- IR Entry 1 Entry 2 Entry 3 Case Attendee JEANNE STANLEY MD, Tracie N RN Bibey, Kelsey Role Performed Primary Surgeon Procedure Nurse Scrub Technologist Details Time In 04/20/24 08:27:00 04/20/24 08:27:00 04/20/24 08:27:00 Time Out 04/20/24 10:00:00 04/20/24 10:06:00 04/20/24 10:06:00 Procedure/Preference IR Port Placement (SN) IR Port Placement (SN) IR Port Placement (SN) Card Last Modified By: Cydney Jameson RN, Tracie N RN Aller, Tracie N RN 04/20/24 10:08:26 04/20/24 10:08:26 04/20/24 10:08:26 Entry 4 Entry 5 Case Attendee Heath Eastman CHRISTOPHER MD Role Performed Circulating Technologist Automotive Professional 1 Details Time In 04/20/24 08:27:00 04/20/24 08:27:00 Time Out 04/20/24 10:06:00 04/20/24 10:00:00 Procedure/Preference IR Port Placement (SN) IR Port Placement (SN) Card Last Modified By: Cydney Jameson RN, Tracie N RN 04/20/24 10:08:26 04/20/24 10:08:26 Radiology Procedures- IR Entry 1 Procedure/Preference IR Port Placement (SN) Actual Procedure port insertion Card Primary Procedure Yes Primary Surgeon JEANNE STANLEY MD Anesthesia/Sedation IV Sedation, Local Type Additional Procedure Times Start 04/20/24 08:49:00 Stop 04/20/24 10:00:00 Specialty Service SN Radiology Procedure EBL 5 mL Last Modified By: Cydney Jameson RN 04/20/24 10:08:28 Radiology Procedure Details - IR Entry 1 Radiology Sedation Case Times Sedation Start Time 04/20/24 08:50:00 Sedation Stop Time 04/20/24 10:00:00 Sedation Total Time 1 hour 10 minutes Radiology - Fluid/Drainage Radiology Contrast Contrast Used? No Radiology Flouroscopy Fluoroscopy Used? Yes Fluoro Dose (mGy) 14 Fluoro Time 1.1min Radiology Local Local Used? Yes Local Type: lidocaine w/epi Local Dose 13 ml Radiology Procedure Site Site/Location Right chest Site Condition No complications Suture 4.0 Vicryl Suture, Dressing Type Bioclusive 4 X 5, Telfa Liquiband Skin Adhesive Technologist Notes RIJ port insertion Last Modified By: Cydney Jameson RN 04/20/24 10:08:47 General Case Data - IR Entry 1 Case Information Room IR 18 Case Level IR Level 3 Wound Class None Specialty SN Radiology Procedure ASA Class 2 Diagnosis Preop Diagnosis Poor venous access, Postop Same As Preop Yes chemo Postop Diagnosis Poor venous access, chemo Last Modified By: Heath Eastman 04/20/24 09:52:02 Medication Administration- IR Entry 1 Entry 2 Entry 3 Medication Versed Fentanyl Versed Time Administered 04/20/24 08:50:00 04/20/24 08:50:00 04/20/24 08:55:00 Route of Admin IV Push IV Push IV Push Dose 1 mg 50 mcg 1 mg Volume VORB * *Verbal Order Read Back (VORB) is required for NON- PHYSICIAN administration of medications. Administered by No No No Physician? Administered by: Cydney Jameson RN, Tracie N RN Aller, Tracie N RN Verbal Order Read JEANNE STANLEY MD, JAMES MD BUCHINO, JAMES MD Back from: Last Modified By: Cydney Jameson RN, Tracie N RN Aller, Tracie N RN 04/20/24 08:54:01 04/20/24 08:54:01 04/20/24 08:56:45 Entry 4 Medication Fentanyl Time Administered 04/20/24 08:55:00 Route of Admin IV Push Dose 50 mcg Volume VORB * *Verbal Order Read Back (VORB) is required for NON- PHYSICIAN administration of medications. Administered by No Physician? Administered by: Cydney Jameson RN Verbal Order Read JEANNE STANLEY MD Back from: Last Modified By: Cydney Jameson RN 04/20/24 08:56:45 Procedure Case Times- IR Entry 1 Patient In Procedure Patient In OR 04/20/24 08:27:00 Patient Out of OR 04/20/24 10:06:00 Procedure Start/Stop Procedure Start Time 04/20/24 08:49:00 Procedure Stop Time 04/20/24 10:00:00 Last Modified By: Cydney Jameson RN 04/20/24 10:08:15 Allergy Information- IR Entry 1 Allergies Reviewed? Yes Allergies Reviewed Patient With Last Modified By: Cydney Jameson RN 04/20/24 08:52:08 Radiology Protocols/Time Out- IR Entry 1 Preprocedure Clinician Verifies Correct patient ID When Clinically Confirmation of correct using name & date Indicated side(s) and site(s), or MRN, Accurate Correct diagnostic and procedure, complete radiology tests Informed Consent, H & P available, Required update immediately blood products, prior to procedure, if implants, devices applicable and/or special equipment available, Preop antibiotics sent with patient/available in OR OR/Procedure Room/Bedside Time 04/20/24 08:49:00 Clinician Verifies Correct patient identity including EMR & records using name and date or medical record number, Accurate procedure consent form, Correct patient position, Necessary equipment is available, Anticipated non-routine events with surgical team (case duration, estimated blood loss, patient specific concerns)., Fritz patient factors for recovery and management identified with surgical team. When Applicable Confirmation correct Team Members JEANNE STANLEY MD, side and site marked, Present for Time Out Cydney Jameson RN, Relevant images and Shivani Mcgee Allen, results are properly Design Maintenance Engineer MARGARITO Norton, ritesh and KERRY HARDEN appropriately displayed, Confirm/obtain preop antibiotic order., Alcohol based prep dry, Double verification of sterility indicators complete Instrument Sterility Team Members Shivani Mcgee Verifying Sterility Procedure IR Port Placement (SN) Last Modified By: Cydney Jameson RN 04/20/24 08:53:36 Skin Prep- IR Entry 1 Procedure IR Port Placement (SN) Skin Prep Prep Area Chest Side Right By Shivani Mcgee Prep Agents Chloraprep Hair Removal Method N/A Last Modified By: Cydney Jameson RN 04/20/24 08:54:31 Patient Positioning- IR Entry 1 Procedure IR Port Placement (SN) Body Position OP Supine Feet Uncrossed? Yes Pressure Points Yes Checked Last Modified By: Cydney Jameson RN 04/20/24 08:54:39 Implants- IR Entry 1 Implant/Explant Implant Implant Description PORT MIDSIZE 8FR DIGNITY ATTACHABLE 1/EA [id number] Lot Number [id number] Size 8f Expiration Date 03/15/28 Implant Site rt chest Quantity 1 Last Modified By: Heath Eastman 04/20/24 09:20:56 Radiology Procedure Plan - IR Entry 1 Radiology - Nursing Care Plan Outcome Statement The patient Outcome Statement The patient receives demonstrates knowledge Cont. appropriate of the expected medication(s), safely responses to the administered during the operative/invasive perioperative/invasive procedure., The period., The patient is patient's value system, free from signs and lifestyle, ethnicity, symptoms of injury and culture are caused by extraneous considered, respected, objects (equipment, and incorporated in the instrumentation, perioperative plan of sponges, or sharps). care., The patient is free from signs and symptoms of infection. Radiology - Action Plan Outcomes Met? Yes Shared Services And Outsourcing Manager Cydney Jameson RN Completing Procedure Plan Last Modified By: Cydney Jameson RN 04/20/24 08:54:56 Case Comments <None> Finalized By: Cydney Jameson RN Document Signatures Signed By: Cydney Jameson RN 04/20/24 10:08 [facility] 08-05-2024 Summary of episode note Discharge Instructions Thank you for allowing [facility] to assist you with your healthcare needs. The following is importantdischarge information regarding your hospital visit. Your Care Team ADAN GARCIA APRN-OSCAR What to do next Scheduled Follow-Up Appointments Appointment Type When With Where Contact Information StatusINF Labwork 04/22/2024 08:30 AM EDT Infusion Therapy Confirmed SO OV Chemo 04/22/2024 09:00 AM EDT PETER FERRIS [facility] [address] [place] [phone] Confirmed INF Chemo: Infusion 240 min (4 hours) 04/22/2024 09:30 AM EDT Infusion Therapy Confirmed IR Procedure Follow Up 05/04/2024 02:00 PM EDT IR Confirmed INF Labwork 05/11/2024 12:00 PM EDT Infusion Therapy Confirmed INF Labwork 05/13/2024 07:45 AM EDT Infusion Therapy Confirmed SO OV Chemo 05/13/2024 08:20 AM EDT PETER FERRIS [facility] [address] [place] [phone] Confirmed INF Chemo: Infusion 240 min (4 hours) 05/13/2024 09:00 AM EDT Infusion Therapy Confirmed INF Labwork 06/01/2024 12:00 PM EDT Infusion Therapy Confirmed INF Labwork 06/03/2024 08:30 AM EDT Infusion Therapy Confirmed SO OV Chemo 06/03/2024 09:00 AM EDT PETER FERRIS [facility] [address] [place] [phone] Confirmed INF Chemo: Infusion 240 min (4 hours) 06/03/2024 09:30 AM EDT Infusion Therapy Confirmed Follow Up Appointments Follow Up with JESSICA PALACIO MD Where:[address] [place] [address] [place] [address]- [phone] Additional Information: Follow-up as scheduled Allergies NKA Medications Please ask your primary doctor or pharmacist before taking any other medication not listed, including over the counter drugs, herbal medications, vitamins and or supplements as they may interact withyour home medications. What How Much When Why Instructions Last Dose Unchanged albuterol (albuterol MDI (90 mcg/ inh) CFC free inhalation aerosol) 1 puff(s) by inhalation Every 4 hours as needed for as needed for wheezing Unchanged amoxicillin-clavulanate (Augmentin 500 mg-125 mg oral tablet) 1 tab(s) by mouth Every 12 hours Duration: 10 Days Unchanged apixaban (Eliquis 2.5 mg oral tablet) 1 tab(s) by mouth Two (2) times a day Primary low grade serous adenocarcinoma of ovary Post-operative state Skin candidiasis Duration: 14 Days Unchanged clonazePAM (clonazePAM 0.5 mg oral tablet) 0.5 tab(s) by mouth Once a day Unchanged FLUoxetine (FLUoxetine 20 mg oral capsule) 1 cap by mouth Once a day Unchanged multivitamin (Multivitamin) 1 tab(s) by mouth Once a day Unchanged ondansetron (ondansetron 4 mg oral tablet) 1 tab(s) by mouth Every 6 hours prn nausea Please take this list to your next doctor s visit. Bring all medications you take, including over the counter medications, herbals and other supplements with you to your doctor s visit. Patients and families are reminded to discard old lists and to update any records with all medication providers or retail pharmacies. Education Materials WALES Port Placement Discharge Instructions Interventional Radiology [facility] [address] [place] [address] Your physician has requested that you have a port placed. The port is usually placed in the upper chest and lies completely under the skin. A special needle is used to access the port when needed. The port will allow for frequent intravenous medication administration or blood draws without startingan IV each time. The port can be left in place for several years and can be removed when your physician feels it is no longer needed during a short procedure. Diet: Resume your normal diet as tolerated. Activity: Avoid strenuous activity for 3 days. You will need to sponge bathe for the first 3 days. After 3 days, you may shower. Do not submerge the site in the bath tub, swimming pool, or hot tub for 7 days. Dressing: Keep the incision site dry for 3 days. Remove the dressing after three days and leave it open to air. Do not remove the steri-strips. They will come off on their own in time. Pain Control: Qsah-jrt-atwvwlv pain medication should be used for pain or discomfort. Please check with the physician who sent you for this procedure for their specific recommendations. If you were sedated for this procedure: Avoid alcoholic beverages for 24 hours after your procedure. Do not drive or operate heavy machinery for 24 hours after your procedure. Do not make any legal decisions for 24 hours after your procedure. Medication: Please resume on Site Care: Carry your card with port information at all times. All blood samples should be taken from the port. Your port will need flushed every 4 weeks when not in use. Please talk with the physician who ordered the port to coordinate this. Ask your primary physician for a prescription for EMLA Cream. This cream can be applied over the port site to numb the skin when you know the port is going to be accessed. When to seek medial care: Foul odor, pus drainage, redness, or swelling at puncture site. Excessive bleeding from puncture site. Fever greater than 101 degrees and chills. If you experience any of these issues during the first 24 hours, please follow the instruction below: 8:00 am- 5:00 pm call [phone] After 5:00 pm call [phone] After 24 hours, contact the physician who ordered this procedure for you. Special Instructions: Additional Information VACCINATE! IT SAVES LIVES! Members of the community who have not yet received the COVID-19 vaccine and would like to receive it can visit one of [facility] vaccine clinics. There are many vaccine clinic locations within the [facility]. For locations and available times, please visit https://[employer]ot.coronavirus.[place].gov/. It is important to note that some COVID mobile vaccine clinics are held outdoors and may be canceled in rainy or stormy conditions. To learn more about pediatric vaccinations (ages 5-11), we invite you to visit the [facility] webpage. https://www.[facility].org/pages/[email or web address]-Prccz-Rdsxvoinvvq-Tywpkntijo-Pnmxa-Azm stions.htmlTo learn more about the COVID-19 vaccine, we invite you to visit the CDC website for a list of frequently asked questions.https://www.cdc.gov/coronavirus/2019-ncov/vaccines/faq.html [employer] Patient Portal Access Instructions: Stay connected with your healthcare team and access your personal medical information anytime with the [employer] Patient Portal. Please follow the directions below to create your [employer] account: 1.Access the email account you provided upon registration to the hospital/physician office.2.Look for an invitation email from [facility].3.Open the email and access the invitation link: AcceptInvitation to [employer].4.Fill in the required schneider to create your account. To access your account, visit [employer]Admitlyt. Click the blue button labeled Access Patient Portal and then log in with the username and password that you created in the steps above. You will be able to view your test results, lab results, a summary of your visits, upcoming appointments and more. There is also a convenient messaging option where you can send secure messages to your p rovider. In addition, you will have the ability to download any documents or summaries to your computer and/or send the information securely to a physician. Remember that your healthcare information is confidential, so carefully consider who you will allowto register on the [employer] Patient Portal for access to your information. You can also access the [employer] Patient Portal on the [employer] roma. Simply click on Patient Portal and then log into your account. If you would like to receive a full copy of your medical records, please contact the [facility] Medical Records Department by calling [phone], Saturday through Saturday between 8 a.m. and 4:30 p.m. HOW TO SAFELY DISPOSE OF PRESCRIPTION MEDICATIONS Please use one of the following methods to safely dispose of your unused medications. 1.Use a drug disposal kit: the drug disposal pouch allows you to safely discard your old and unuseddrugs. Ask your nurse to give you one when you are discharged.2.Visit a local take-back location: Many local pharmacies and police departments have programs that collect old and unwanted prescriptiondrugs. Call your local pharmacy or go to http://[employer]Books.AllPeers/8D1Lx4j to find one close to you.3.Make use of household items: Use cat litter or old coffee grounds to dispose medications if other options arenot available. Mix your drugs with these household products, seal them in an airtight container andthrow it into the garbage. Call [facility]: [phone] to be sure your drugs can be disposed of in this way. Some medicines may require a different approach.4.Never flush your medications down the toilet. IF YOU HAVE BEEN PRESCRIBED AN OPIOID FOR PAIN If you have been prescribed an opioid (such as hydrocodone, oxycodone or morphine), it is critical to understand the possible side effects and risks of opioid pain medications. Even when taken as directed, opioids can have several side effects including: Tolerance, meaning you might need to take more of a medication for the same pain relief. Nausea, vomiting and/or constipation. Sleepiness, dizziness, dry mouth, confusion, depression or itching. Physical dependence, meaning you have withdrawal symptoms when a medication is stopped, can develop within a few days. KNOW YOUR RESPONSIBILITIES It is important to know exactly how much and how often to take the opioid pain medications you are prescribed. Never take opioids in higher amounts or more often than prescribed. Do not combine opioids with alcohol or other drugs that cause drowsiness, such as benzodiazepines, also known as benzos, including diazepam and alprazolam, muscle relaxants or sleep aids. Never sell or share prescription opioids. This is illegal. Store opioids in a secure place and out of reach of others (including children, family, friends and visitors). The last page of this document has been signed and retained as a CHART COPY. Signatures Patient Education Materials Radiology- Port Placement (CUSTOM) Medication Leaflets My discharge plan and instructions have been reviewed and explained to me and ELVIRA Delaney ERIN A understand my current condition and have read and understand these discharge instructions. I have received a written copy of the plan/instructions. If I have questions, I am aware that I should contact my doctor. 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 Note IR Procedure Record Summary Primary Physician: JEANNE STANLEY MD Finalized Date/Time: 04/20/24 10:08:51 Pt. Name: JESSICA ALARCON Daquan /Sex: 1980 Female Med Rec #: [id number] Physician: Financial #: [id number] Pt. Type: S Room/Bed: [facility] Admit/Disch: 04/20/24 06:05:07 - Institution: Allergies identified in patient's electronic medical record at time of printing on 04/20/24 Entry 1 Substance NKA Reaction Type Allergy Last Modified By: Chyna Mcnulty LPN 10/13/20 08:00:04 Case Attendance- IR Entry 1 Entry 2 Entry 3 Case Attendee JEANNE STANLEY MD, Tracie N RN Bibey, Kelsey Role Performed Primary Surgeon Procedure Nurse Scrub Technologist Details Time In 04/20/24 08:27:00 04/20/24 08:27:00 04/20/24 08:27:00 Time Out 04/20/24 10:00:00 04/20/24 10:06:00 04/20/24 10:06:00 Procedure/Preference IR Port Placement (SN) IR Port Placement (SN) IR Port Placement (SN) Card Last Modified By: Cydney Jameson RN, Tracie N RN Aller, Tracie N RN 04/20/24 10:08:26 04/20/24 10:08:26 04/20/24 10:08:26 Entry 4 Entry 5 Case Attendee Heath Eastman CHRISTOPHER MD Role Performed Circulating Technologist Automotive Professional 1 Details Time In 04/20/24 08:27:00 04/20/24 08:27:00 Time Out 04/20/24 10:06:00 04/20/24 10:00:00 Procedure/Preference IR Port Placement (SN) IR Port Placement (SN) Card Last Modified By: Cydney Jameson RN, Tracie N RN 04/20/24 10:08:26 04/20/24 10:08:26 Radiology Procedures- IR Entry 1 Procedure/Preference IR Port Placement (SN) Actual Procedure port insertion Card Primary Procedure Yes Primary Surgeon JEANNE STANLEY MD Anesthesia/Sedation IV Sedation, Local Type Additional Procedure Times Start 04/20/24 08:49:00 Stop 04/20/24 10:00:00 Specialty Service SN Radiology Procedure EBL 5 mL Last Modified By: Cydney Jameson RN 04/20/24 10:08:28 Radiology Procedure Details - IR Entry 1 Radiology Sedation Case Times Sedation Start Time 04/20/24 08:50:00 Sedation Stop Time 04/20/24 10:00:00 Sedation Total Time 1 hour 10 minutes Radiology - Fluid/Drainage Radiology Contrast Contrast Used? No Radiology Flouroscopy Fluoroscopy Used? Yes Fluoro Dose (mGy) 14 Fluoro Time 1.1min Radiology Local Local Used? Yes Local Type: lidocaine w/epi Local Dose 13 ml Radiology Procedure Site Site/Location Right chest Site Condition No complications Suture 4.0 Vicryl Suture, Dressing Type Bioclusive 4 X 5, Telfa Liquiband Skin Adhesive Technologist Notes RIJ port insertion Last Modified By: Cydney Jameson RN 04/20/24 10:08:47 General Case Data - IR Entry 1 Case Information Room IR 18 Case Level IR Level 3 Wound Class None Specialty SN Radiology Procedure ASA Class 2 Diagnosis Preop Diagnosis Poor venous access, Postop Same As Preop Yes chemo Postop Diagnosis Poor venous access, chemo Last Modified By: Heath Eastman 04/20/24 09:52:02 Medication Administration- IR Entry 1 Entry 2 Entry 3 Medication Versed Fentanyl Versed Time Administered 04/20/24 08:50:00 04/20/24 08:50:00 04/20/24 08:55:00 Route of Admin IV Push IV Push IV Push Dose 1 mg 50 mcg 1 mg Volume VORB * *Verbal Order Read Back (VORB) is required for NON- PHYSICIAN administration of medications. Administered by No No No Physician? Administered by: Cydney Jameson RN, Tracie N RN Aller, Tracie N RN Verbal Order Read JEANNE STANLEY MD, JAMES MD BUCHINO, JAMES MD Back from: Last Modified By: Cydney Jameson RN, Tracie N RN Aller, Tracie N RN 04/20/24 08:54:01 04/20/24 08:54:01 04/20/24 08:56:45 Entry 4 Medication Fentanyl Time Administered 04/20/24 08:55:00 Route of Admin IV Push Dose 50 mcg Volume VORB * *Verbal Order Read Back (VORB) is required for NON- PHYSICIAN administration of medications. Administered by No Physician? Administered by: Cydney Jameson RN Verbal Order Read JEANNE STANLEY MD Back from: Last Modified By: Cydney Jameson RN 04/20/24 08:56:45 Procedure Case Times- IR Entry 1 Patient In Procedure Patient In OR 04/20/24 08:27:00 Patient Out of OR 04/20/24 10:06:00 Procedure Start/Stop Procedure Start Time 04/20/24 08:49:00 Procedure Stop Time 04/20/24 10:00:00 Last Modified By: Cydney Jameson RN 04/20/24 10:08:15 Allergy Information- IR Entry 1 Allergies Reviewed? Yes Allergies Reviewed Patient With Last Modified By: Cydney Jameson RN 04/20/24 08:52:08 Radiology Protocols/Time Out- IR Entry 1 Preprocedure Clinician Verifies Correct patient ID When Clinically Confirmation of correct using name & date Indicated side(s) and site(s), or MRN, Accurate Correct diagnostic and procedure, complete radiology tests Informed Consent, H & P available, Required update immediately blood products, prior to procedure, if implants, devices applicable and/or special equipment available, Preop antibiotics sent with patient/available in OR OR/Procedure Room/Bedside Time 04/20/24 08:49:00 Clinician Verifies Correct patient identity including EMR & records using name and date or medical record number, Accurate procedure consent form, Correct patient position, Necessary equipment is available, Anticipated non-routine events with surgical team (case duration, estimated blood loss, patient specific concerns)., Fritz patient factors for recovery and management identified with surgical team. When Applicable Confirmation correct Team Members JEANNE STANLEY MD, side and site marked, Present for Time Out Cydney Jameson RN, Relevant images and Shivani Mcgee Allen, results are properly Heath Norton, PIMENTEL, labeled and KERRY HARDEN appropriately displayed, Confirm/obtain preop antibiotic order., Alcohol based prep dry, Double verification of sterility indicators complete Instrument Sterility Team Members Shivani Mcgee Verifying Sterility Procedure IR Port Placement (SN) Last Modified By: Cydney Jameson RN 04/20/24 08:53:36 Skin Prep- IR Entry 1 Procedure IR Port Placement (SN) Skin Prep Prep Area Chest Side Right By Shivani Mcgee Prep Agents Chloraprep Hair Removal Method N/A Last Modified By: Cydney Jameson RN 04/20/24 08:54:31 Patient Positioning- IR Entry 1 Procedure IR Port Placement (SN) Body Position OP Supine Feet Uncrossed? Yes Pressure Points Yes Checked Last Modified By: Cydney Jameson RN 04/20/24 08:54:39 Implants- IR Entry 1 Implant/Explant Implant Implant Description PORT MIDSIZE 8FR DIGNITY ATTACHABLE 1/EA [id number] Lot Number [id number] Size 8f Expiration Date 03/15/28 Implant Site rt chest Quantity 1 Last Modified By: Heath Eastman 04/20/24 09:20:56 Radiology Procedure Plan - IR Entry 1 Radiology - Nursing Care Plan Outcome Statement The patient Outcome Statement The patient receives demonstrates knowledge Cont. appropriate of the expected medication(s), safely responses to the administered during the operative/invasive perioperative/invasive procedure., The period., The patient is patient's value system, free from signs and lifestyle, ethnicity, symptoms of injury and culture are caused by extraneous considered, respected, objects (equipment, and incorporated in the instrumentation, perioperative plan of sponges, or sharps). care., The patient is free from signs and symptoms of infection. Radiology - Action Plan Outcomes Met? Yes Shared Services And Outsourcing Manager Cydney Jameson RN Completing Procedure Plan Last Modified By: Cydney Jameson RN 04/20/24 08:54:56 Case Comments Finalized By: Cydney Jameson RN Document Signatures Signed By: Cydney Jameson RN 04/20/24 10:08 [id number] Note ORIGINAL PROCEDURE: Ultrasound and fluoroscopic guided internal jugular vein chest port placement performed on 04/20/2024. INDICATION: Vascular access for chemotherapy. TECHNIQUE/FINDINGS: The procedure was performed in the VIR Suite following informed consent and a Time Out. The patient received preprocedure IV antibiotics. Local anesthesia was obtained using 2% lidocaine with epinephrine. With the patient in the supine position, the right neck and upper chest were prepped and draped in the usual sterile fashion. Procedure performed with all elements of maximal sterile barrier technique, hand hygiene, skin preparation, and sterile ultrasound techniques. The right internal jugular vein was evaluated by ultrasound and was found to be widely patent. An appropriate skin entry site was identified using ultrasound. The right internal jugular vein was accessed using a 21-G needle using ultrasound guidance. A sonographic image was captured and archived at the time of needle access. A 0.018 inch guidewire was advanced into the vein using fluoroscopic guidance. A 5-F micropuncture catheter was placed over the guidewire. A site several centimeters below the inferior margin of the clavicle was identified as the port reservoir pocket. A transverse incision was made with a #15 blade scalpel and a port pocket was created using blunt dissection. The catheter was tunneled through the chest incision to the lateral neck dermatotomy. The port was placed into the subcutaneous pocket. Using the intravascular length measured by the 0.018 inch guidewire, the catheter was cut to its final length. Using fluoroscopic guidance, the micropuncture catheter was exchanged over a 0.035 inch guidewire for a peel-away sheath. The port catheter was advanced through the peel-away sheath and positioned with the tip in the upper right atrium. A fluoroscopic image was obtained which confirmed the tip of the catheter in the upper right atrium. The port was accessed with a Bautista needle and the catheter lumen aspirated and flushed freely. The catheter lumen was flushed with Heparin 100 units / mL. The port was left without an access needle. The right neck dermatotomy incision was closed with a skin adhesive. The port pocket insertion incision was closed with interrupted subcutaneous 4-0 Vicryl sutures and skin adhesive. The port was dressed in the usual fashion. There were no immediate complications. The patient tolerated the procedure well. Total Fluoroscopy Time: 1.1 minutes. Reference Air Kerma (BELINDA): 14 mGy. Intra-Service Time (Moderate Sedation): 60 minutes. Patient Monitoring: I personally supervised and directed an independent trained observer who assisted in monitoring the patient's level of consciousness and physiological status throughout the procedure. IMPRESSION: Successful placement of a single lumen 8-F chest Power Port via the right internal jugular vein. Interpreted by: Jeanne Stanley MD Preliminary Report By: Jeanne Stanley MD Electronically signed By Jeanne Stanley MD Dictated Date: 04/20/2024 12:24:32 PM Prelim Date: 04/20/2024 12:25:05 PM Sign Date: 04/20/2024 12:25:05 PM Ordering Provider: [facility]08-05-2024 Note Interventional Radiology Focused Preprocedure History/Physical Reason for Visit poor venous access, chemo History of Presenting Illness/Planned IR Procedure Ovarian cancer. Patient needs port for chemotherapy access. Last dose of Eliquis was 04/16/2024 Allergies (1) ActiveSeverityReaction NKANone Documented Home Medications (7) Active albuterol MDI (90 mcg/inh) CFC free inhalation aerosol 1 puff(s), PRN, Inhalation, q4h Augmentin 500 mg-125 mg oral tablet 1 tab(s), Oral, q12h clonazePAM 0.5 mg oral tablet 0.25 mg = 0.5 tab(s), Oral, qDay Eliquis 2.5 mg oral tablet 2.5 mg = 1 tab(s), Oral, BID FLUoxetine 20 mg oral capsule 20 mg = 1 cap(s), Oral, qDay Multivitamin 1 tab(s), Oral, qDay ondansetron 4 mg oral tablet 4 mg = 1 tab(s), Oral, q6h Problem List/Past Medical History Anxiety with depression Asthma BMI 45.0-49.9, adult Family history of breast cancer in mother Glasses Pelvic mass Personal history of COVID-19 Primary low grade serous adenocarcinoma of ovary Seasonal allergy Surgical History LEEP: 2009 Colposcopy: 2008 Appendectomy: 2002 Family History Mother: BRCA1 gene mutation detected Father: Arthritis; Depression; Diabetes; Hypertension Maternal Grandfather: Alcohol abuse; Asthma Paternal Grandmother: Arthritis Maternal Grandmother: Breast cancer; Ovarian cancer Paternal Grandfather: Hypertension Unknown (Paternal Great Aunt): Breast cancer; Ovarian cancer Social History Alcohol Details: Use: Current. Frequency: 1-2 times per year. Home/Environment Details: Living situation: Home/Independent. Safe place to go: Yes. Domestic Concerns: Denies. Nutrition/Health Details: Caffeine intake amount: 1-2 servings per week. Sexual Details: Sexually active: Yes. Current partners: 1. History of sexual abuse: No. Substance Abuse Details: Use: DENIES. Tobacco Details: Nicotine Use: Never (less than 100 in lifetime). Exposure to Tobacco Smoke Lives in non-smoking home. Physical Exam Vitals: Rftiqduejap09.8 (06:53) Systolic Blood Vcppetyq021 (06:53) Diastolic Blood Snxwvqau16 (06:53) Pulse84 (06:53) XyV917 (06:53) Respiratory RateNo result General: Alert, cooperative. Lungs clear Heart RRR The remainder of the physical exam is noncontributory. Labs Anticoagulation Labs No qualifying data available. Last Month Basic Metabolic Panel: Hematology: Sodium Level: 142 (04/08/24) Hgb: 11.8 (04/20/24) Potassium Level: 4.0 (04/08/24) : () Phosphorus: ------ WBC: 8.9 (04/20/24) Magnesium Lvl: ------ Platelet: 242 (04/20/24) BUN: 16 (04/08/24) PT International Ratio: ------ Creatinine Lvl (s): 0.88 (04/08/24) : () Additional - Last Month A/G Ratio: 1.2 (03/25/24) ABO/Rh Interp: O POS (04/03/24) ABSC Interp (Gel): Negative ABSC (04/03/24) Albumin Level: 3.7 (03/25/24) Alk Phos: 78 (03/25/24) ALT/SGPT: 24 (03/25/24) AST/SGOT: 14 (03/25/24) Basophil %: 0.3 (04/20/24) Basophil, Absolute: 0.0 (04/20/24) Bili Total: 0.4 (03/25/24) BUN/Creatinine Ratio: 18 (04/08/24) CA 125: 76.0 (03/25/24) CA 19-9: 23.2 (03/25/24) Calcium Lvl: 9.3 (04/08/24) CEA: 0.5 (03/25/24) Chloride: 106 (04/08/24) CO2: 32 (04/08/24) Culture Blood: See Result (04/08/24) Electrolyte Balance: 4.0 (04/08/24) Eosinophil %: 2.5 (04/20/24) Eosinophil, Absolute: 0.2 (04/20/24) FSH: 3.2 (03/25/24) GFR : 85 (04/08/24) GFR Non-: 70 (04/08/24) Globulin: 3.2 (03/25/24) Glucose Level: 97 (04/08/24) Hct: 34.6 (04/20/24) Order Number: [id number] (03/25/24) Test Name: Test Name (03/25/24) Lymphocyte %: 17.6 (04/20/24) Lymphocyte, Absolute: 1.6 (04/20/24) MCH: 30.3 (04/20/24) MCHC: 34.3 (04/20/24) MCV: 88.4 (04/20/24) Misc Test Result: COMMENT (03/25/24) Monocyte %: 8.4 (04/20/24) Monocyte Distribution Width: 18.55 (04/08/24) Monocyte, Absolute: 0.8 (04/20/24) MPV: 9.9 (04/20/24) Neutrophil %: 71.2 (04/20/24) Neutrophil, Absolute: 6.3 (04/20/24) RBC: 3.91 (04/20/24) RDW: 14.2 (04/20/24) Total Protein: 6.9 (03/25/24) UA Appear: Clear (04/08/24) UA Bili: Negative (04/08/24) UA Blood: Trace (04/08/24) UA Color: Yellow (04/08/24) UA Glucose: Negative (04/08/24) UA Ketones: Negative (04/08/24) UA Leuk Est: Negative (04/08/24) UA Nitrite: Negative (04/08/24) UA pH: 5.5 (04/08/24) UA Protein: Negative (04/08/24) UA Spec Grav: 1.020 (04/08/24) UA Specimen Type: Clean Catch (04/08/24) UA Urobilinogen: 0.2 (04/08/24) Urine POC: Negative (04/03/24) Assessment/Treatment Plan Image guided port insertion Post Procedure Discharge Plan Patient to be discharged home. _ Digitally Signed by LUZ MARIA PRADO PA-C on 04/20/2024 07:48 AM Digitally Signed by JEANNE STANLEY MD on 04/20/2024 08:[address] [id number]. MICRO - Microbiology PROCEDURE: Blood Culture (bacterial) [*1] SOURCE: Blood BODY SITE: COLLECTED DATE/TIME: 04/08/2024 23:09 EDT RECEIVED DATE/TIME: 04/09/2024 15:40 EDT START DATE/TIME: 04/09/2024 15:41 EDT FREE TEXT SOURCE: FINAL REPORTS Final Report [] Verified Date/Time/Personnel: 04/14/2024 15:59 EDT Blood Culture: No Growth at 5 days. PRELIMINARY REPORTS Preliminary Report [] Verified Date/Time/Personnel: 04/09/2024 16:59 EDT Culture has been received in lab and is no growth to date. Routine cultures are held for 5 days. Performing Locations *1: This test was performed at: [facility], [address] [place] [address], [facility] , [facility] ([place])04-14-2024 Note. MICRO - Microbiology PROCEDURE: Blood Culture (bacterial) [*1] SOURCE: Blood BODY SITE: COLLECTED DATE/TIME: 04/08/2024 23:09 EDT RECEIVED DATE/TIME: 04/09/2024 15:40 EDT START DATE/TIME: 04/09/2024 15:41 EDT FREE TEXT SOURCE: FINAL REPORTS Final Report [] Verified Date/Time/Personnel: 04/14/2024 15:59 EDT Blood Culture: No Growth at 5 days. PRELIMINARY REPORTS Preliminary Report [] Verified Date/Time/Personnel: 04/09/2024 16:59 EDT Culture has been received in lab and is no growth to date. Routine cultures are held for 5 days. Performing Locations *1: This test was performed at: [facility], [address] [place] [address], [facility] , [facility] ([place])04-11-2024 Hospital Discharge instructions Patient Education 04/11/2024 00:26:01 Seroma, Postsurgical Postsurgical Seroma A seroma is a sterile collection of fluid under the skin, usually at the site of a surgical incision. Fluid builds up under the skin where tissue was removed. It may form soon after your surgery. Or it may form up to about 1 to 2 weeks after surgery. It may look like a swollen lump and feel tender or sore. A small seroma is not dangerous. Depending on its size and symptoms, it may not need to be treated.The seroma may go away on its own within a few weeks or months. Your body slowly absorbs the fluid.No medicine will make it go away faster. But if you have a large seroma or if it is causing pain, your healthcare provider may drain it. This is done with a syringe and needle. Or the provider may put in a drain. Seromas can return and may need to be drained multiple times. Rarely, you may need a minor procedure to remove the seroma. Long-term problems from a seroma are rare. Home care You may be given medicines to relieve pain. These may include acetaminophen and ibuprofen. Take these as directed. Check the seroma daily for the signs of infection listed below. Follow-up care Follow up with your healthcare provider, or as advised. When to seek medical advice Call your healthcare provider right away if you have signs of infection: Fever of 100.4 F (38 C) or higher, or as directed by your healthcare provider Seroma or skin around it feels warm Pain in the seroma that gets worse Redness or swelling that gets worse Also call your provider right away if any of these occur: Drainage from the seroma that is white or colored or very bloody. Clear or slightly bloody drainageis normal. Wound opens up Rapid heart rate Shortness of breath [phone] [employer]. [address] [place] [address]. All rights reserved. This information is not intended as a substitute for professional medical care. Always follow yourhealthcare professional's instructions. 04/11/2024 00:25:56 Post Op Wound Check, Infection Wound Check After Surgery: Infection Your surgical wound has become infected. Infection after surgery usually involves just the top layers of skin. Sometimes the infection is deeper in the wound and may involve a collection of fluid or pus. Treatment will depend on the type of infection you have. Once antibiotic treatment is started, the area of redness should not increase. Pain should start todecrease after 2 days of treatment. Home care Different types of surgery require different types of care and dressing changes. It is important tofollow all instructions and advice from your surgeon, as well as other members of your healthcare team. Wound care Keep the wound clean, as directed by your healthcare provider. Change the dressing as directed. Change the dressing sooner if it becomes wet or stained with bloodor fluid from the wound. Bathe with a sponge (no shower or tub baths) for the first few days, or until there is no more drainage from the wound. Unless your surgeon gave you different instructions, you can then shower. Don'tsoak the area in water (no baths or swimming) until the tape, sutures, or jignesh are removed and any wound opening has dried out and healed. If you smoke, stop smoking. Ask your doctor about ways to quit. Changing the dressing Wash your hands with plain soap and water before changing the dressings. Or use an alcohol-based hand aircraft cleaner. Carefully remove the dressing and tape. Don t just yank it off. If it sticks to the wound, you may need to wet it a little to remove it, unless your healthcare provider told you not to wet it. Wash your hands again before putting on a new, clean dressing. Gently clean the wound with clean water (or saline) using gauze or a clean washcloth. Don't rub it or pick at it. Don't use soap, alcohol, hydrogen peroxide, or any other cleanser. If you were told to dry the wound before putting on a new dressing, gently pat it dry. Don't rub. Put the old dressing in a sealed plastic bag and throw it out. Don't reuse it! Wash your hands again when you are done. Types of dressings Your healthcare team will tell you what type of dressing to put on your wound. Follow your healthcare team s instructions carefully, and contact them if you have any questions. Two common types of dressings are described below. You may have one of these or another type. Dry dressing. Use dry gauze. If the wound is still draining, use a nonadherent dressing, which shouldn t stick to the wound. Wet-to-dry dressing. Wet the gauze and squeeze out the extra water (or saline) before putting it on. Then cover this with a dry pad. Medicines If you were given antibiotics, take them until they are used up or your healthcare provider tells you to stop. It is important to finish the antibiotics even though you feel better, to make sure the infection has cleared. You can take acetaminophen or ibuprofen for pain, unless you were given a different pain medicine to use. Talk with your doctor before using these medicines if you have chronic liver or kidney disease. Also talk with your doctor if you have ever had a stomach ulcer or digestive bleeding, or are taking blood-thinner medicines. Aspirin should never be used in anyone under 18 years of age who is ill with a fever. It may cause severe liver damage. Follow-up care Follow up with your healthcare provider for your next wound check or to remove your sutures, jignesh, or tape. If a culture was done, you will be told if the results will affect your treatment. You can call as directed for the results. If imaging tests, such as X-rays, an ultrasound, or CT scan were done, they will be looked at by a specialist. You will be told of the results, especially if they affect treatment. Call 911 Call 911 if any of these occur: Trouble breathing or swallowing, wheezing Hoarse voice or trouble speaking Extreme confusion Extreme drowsiness or trouble awakening Fainting or loss of consciousness Rapid heart rate or very slow heart rate Vomiting blood, or large amounts of blood in stool Discomfort in the center of the chest that feels like pressure, squeezing, a sense of fullness, or pain Discomfort or pain in other upper body areas, such as the back, one or both arms, neck, jaw, or stomach Stroke symptoms (spot a stroke FAST ): oF: Face drooping. One side of the face is numb or droops. oA: Arm weakness. One arm feels weak or numb. oS: Speech difficulty: Speech is slurred, or you can't speak. oT: Time to call 911. Even if symptoms go away, call 911. When to seek medical advice Call your healthcare provider right away if any of these occur: Increasing pain at the site of surgery Pain not controlled by medicine prescribed Fever of 100.4 F (38 C) or higher, or as directed by your healthcare provider Increasing redness around the wound Fluid, pus, or blood that continues to drain from the wound after 5 days of treatment Vomiting, constipation, or diarrhea [phone] [employer]. [address] [place] [address]. All rights reserved. This information is not intended as a substitute for professional medical care. Always follow yourhealthcare professional's instructions. Follow Up Care 04/10/2024 23:03:18 With:LAYO FAULKNER MD Address: [address] [place] [phone] When:2-4 days [facility] 07-27-2024 Note Discharge Instructions Thank you for allowing [facility] to assist you with your healthcare needs. The following is importantdischarge information regarding your hospital visit. Diagnosis from Today's Visit Surgical site infection What to Do Next Instructions from Your Care Team No qualifying data available. Post Acute Orders No qualifying data available. You Need to Schedule the Following Appointments Follow Up with LAYO FAULKNER MD When:Within 2-4 days Where:[facility] [address] [place] [address] [place] [phone]- [phone] Allergies NKA Medications Please ask your primary doctor or pharmacist before taking any other medication not listed, including over the counter drugs, herbal medications, vitamins and or supplements as they may interact withyour home medications. What How Much When Why Instructions Last Dose New amoxicillin-clavulanate (Augmentin 500 mg-125 mg oral tablet) 1 tab(s) by mouth Every 12 hours Duration: [address] [facility] Unchanged albuterol (albuterol MDI (90 mcg/ inh) CFC free inhalation aerosol) 1 puff(s) by inhalation Every 4 hours as needed for as needed for wheezing Unchanged apixaban (Eliquis 2.5 mg oral tablet) 1 tab(s) by mouth Two (2) times a day Primary low grade serous adenocarcinoma of ovary Post-operative state Skin candidiasis Duration: 14 Days Unchanged clonazePAM (clonazePAM 0.5 mg oral tablet) 0.5 tab(s) by mouth Once a day Unchanged docusate (Colace 100 mg oral capsule) 1 cap by mouth Two (2) times a day as needed for for constipation Duration: 30 Days Unchanged FLUoxetine (FLUoxetine 20 mg oral capsule) 1 cap by mouth Once a day Unchanged multivitamin (Multivitamin) 1 tab(s) by mouth Once a day Unchanged nystatin topical (nystatin 100,000 units/ g topical powder) 1 application Topical Two (2) times a day Primary low grade serous adenocarcinoma of ovary Post-operative state Skin candidiasis Duration: 7 Days Unchanged oxyCODONE (oxyCODONE 5 mg oral tablet ( IMMEDIATE release )) 1 tab(s) by mouth Every 6 hours as needed for for pain Post-op pain Duration: 5 Days Pharmacy Information [facility]24: [address] [place], [place] [phone] Please take this list to your next doctor s visit. Bring all medications you take, including over the counter medications, herbals and other supplements with you to your doctor s visit. Patients and families are reminded to discard old lists and to update any records with all medication providers or retail pharmacies. Education Materials Postsurgical Seroma A seroma is a sterile collection of fluid under the skin, usually at the site of a surgical incision. Fluid builds up under the skin where tissue was removed. It may form soon after your surgery. Or it may form up to about 1 to 2 weeks after surgery. It may look like a swollen lump and feel tender or sore. A small seroma is not dangerous. Depending on its size and symptoms, it may not need to be treated.The seroma may go away on its own within a few weeks or months. Your body slowly absorbs the fluid.No medicine will make it go away faster. But if you have a large seroma or if it is causing pain, your healthcare provider may drain it. This is done with a syringe and needle. Or the provider may put in a drain. Seromas can return and may need to be drained multiple times. Rarely, you may need a minor procedure to remove the seroma. Long-term problems from a seroma are rare. Home care You may be given medicines to relieve pain. These may include acetaminophen and ibuprofen. Take these as directed. Check the seroma daily for the signs of infection listed below. Follow-up care Follow up with your healthcare provider, or as advised. When to seek medical advice Call your healthcare provider right away if you have signs of infection: Fever of 100.4 F (38 C) or higher, or as directed by your healthcare provider Seroma or skin around it feels warm Pain in the seroma that gets worse Redness or swelling that gets worse Also call your provider right away if any of these occur: Drainage from the seroma that is white or colored or very bloody. Clear or slightly bloody drainageis normal. Wound opens up Rapid heart rate Shortness of breath [phone] [employer]. [address] [place] [address]. All rights reserved. This information is not intended as a substitute for professional medical care. Always follow yourhealthcare professional's instructions. Wound Check After Surgery: Infection Your surgical wound has become infected. Infection after surgery usually involves just the top layers of skin. Sometimes the infection is deeper in the wound and may involve a collection of fluid or pus. Treatment will depend on the type of infection you have. Once antibiotic treatment is started, the area of redness should not increase. Pain should start todecrease after 2 days of treatment. Home care Different types of surgery require different types of care and dressing changes. It is important tofollow all instructions and advice from your surgeon, as well as other members of your healthcare team. Wound care Keep the wound clean, as directed by your healthcare provider. Change the dressing as directed. Change the dressing sooner if it becomes wet or stained with bloodor fluid from the wound. Bathe with a sponge (no shower or tub baths) for the first few days, or until there is no more drainage from the wound. Unless your surgeon gave you different instructions, you can then shower. Don'tsoak the area in water (no baths or swimming) until the tape, sutures, or jignesh are removed and any wound opening has dried out and healed. If you smoke, stop smoking. Ask your doctor about ways to quit. Changing the dressing Wash your hands with plain soap and water before changing the dressings. Or use an alcohol-based hand aircraft cleaner. Carefully remove the dressing and tape. Don t just yank it off. If it sticks to the wound, you may need to wet it a little to remove it, unless your healthcare provider told you not to wet it. Wash your hands again before putting on a new, clean dressing. Gently clean the wound with clean water (or saline) using gauze or a clean washcloth. Don't rub it or pick at it. Don't use soap, alcohol, hydrogen peroxide, or any other cleanser. If you were told to dry the wound before putting on a new dressing, gently pat it dry. Don't rub. Put the old dressing in a sealed plastic bag and throw it out. Don't reuse it! Wash your hands again when you are done. Types of dressings Your healthcare team will tell you what type of dressing to put on your wound. Follow your healthcare team s instructions carefully, and contact them if you have any questions. Two common types of dressings are described below. You may have one of these or another type. Dry dressing. Use dry gauze. If the wound is still draining, use a nonadherent dressing, which shouldn t stick to the wound. Wet-to-dry dressing. Wet the gauze and squeeze out the extra water (or saline) before putting it on. Then cover this with a dry pad. Medicines If you were given antibiotics, take them until they are used up or your healthcare provider tells you to stop. It is important to finish the antibiotics even though you feel better, to make sure the infection has cleared. You can take acetaminophen or ibuprofen for pain, unless you were given a different pain medicine to use. Talk with your doctor before using these medicines if you have chronic liver or kidney disease. Also talk with your doctor if you have ever had a stomach ulcer or digestive bleeding, or are taking blood-thinner medicines. Aspirin should never be used in anyone under 18 years of age who is ill with a fever. It may cause severe liver damage. Follow-up care Follow up with your healthcare provider for your next wound check or to remove your sutures, jignesh, or tape. If a culture was done, you will be told if the results will affect your treatment. You can call as directed for the results. If imaging tests, such as X-rays, an ultrasound, or CT scan were done, they will be looked at by a specialist. You will be told of the results, especially if they affect treatment. Call 911 Call 911 if any of these occur: Trouble breathing or swallowing, wheezing Hoarse voice or trouble speaking Extreme confusion Extreme drowsiness or trouble awakening Fainting or loss of consciousness Rapid heart rate or very slow heart rate Vomiting blood, or large amounts of blood in stool Discomfort in the center of the chest that feels like pressure, squeezing, a sense of fullness, or pain Discomfort or pain in other upper body areas, such as the back, one or both arms, neck, jaw, or stomach Stroke symptoms (spot a stroke FAST ): oF: Face drooping. One side of the face is numb or droops. oA: Arm weakness. One arm feels weak or numb. oS: Speech difficulty: Speech is slurred, or you can't speak. oT: Time to call 911. Even if symptoms go away, call 911. When to seek medical advice Call your healthcare provider right away if any of these occur: Increasing pain at the site of surgery Pain not controlled by medicine prescribed Fever of 100.4 F (38 C) or higher, or as directed by your healthcare provider Increasing redness around the wound Fluid, pus, or blood that continues to drain from the wound after 5 days of treatment Vomiting, constipation, or diarrhea [phone] [employer]. [address] [place] [address], [place] [address]. All rights reserved. This information is not intended as a substitute for professional medical care. Always follow yourhealthcare professional's instructions. Additional Information VACCINATE! IT SAVES LIVES! Members of the community who have not yet received the COVID-19 vaccine and would like to receive it can visit one of [facility] vaccine clinics. There are many vaccine clinic locations within the State. For locations and available times, please visit www.gettheshot.coronavirus.[place].gov/. It is important to note that some COVID mobile vaccine clinics are held outdoors and may be canceled in rainy or stormy conditions. To learn more about pediatric vaccinations (ages 5-11), we invite you to visit the [facility] webpage. https://www.[facility].org/pages/4600-Zaexb-Hanztwvgtgm-Rgqdofqmtz-Npiir-Dnw stions.htmlTo learn more about the COVID-19 vaccine, we invite you to visit the CDC website for a list of frequently asked questions. https://www.cdc.gov/coronavirus/2019-ncov/vaccines/faq.html [employer] Patient Portal Access Instructions: Stay connected with your healthcare team and access your personal medical information anytime with the [employer] Patient Portal. If you would like a full copy of your medical records please contact the [facility] Medical Records Department Saturday through Saturday between 8a.m. and 4:30p.m. Please follow the directions below to access the portal: 1.Access the email account you provided upon registration to the hospital.2.Look for an invitation email from [facility].3.Open the email and access the invitation link: Accept Invitation to [employer]4.Fill in the required schneider to create your account. Sign into [email or web address] with your username and password that you created in the above steps to stay up to date. You can then view a summary of results, a summary of your visits, and the ability to download your summaries to your computer or send the information securely to a physician. Remember that your healthcare information is confidential, so carefully consider who you will allow to register on the [employer] Patient Portal for access to your information. You can also access the [employer] Patient Portal on the [employer] roma. Simply click on Health Records under R&L and then click on the [employer] logo. HOW TO SAFELY DISPOSE OF PRESCRIPTION MEDICATIONS Please use one of the following methods to safely dispose of your unused medications. 1.Use a drug disposal kit: the drug disposal pouch allows you to safely discard your old and unuseddrugs. Ask your nurse to give you one when you are discharged.2.Visit a local take-back location: Many local pharmacies and police departments have programs that collect old and unwanted prescriptiondrugs. Call your local pharmacy or go to http://MexxBooks.AllPeers/9R6Ww3g to find one close to you.3.Make use of household items: Use cat litter or old coffee grounds to dispose medications if other options arenot available. Mix your drugs with these household products, seal them in an airtight container andthrow it into the garbage. Call [facility]: [phone] to be sure your drugs can be disposed of in this way. Some medicines may require a different approach.4.Never flush your medications down the toilet. IF YOU HAVE BEEN PRESCRIBED AN OPIOIDS FOR PAIN If you have been prescribed an opioid (such as hydrocodone, oxycodone or morphine), it is critical to understand the possible side effects and risks of opioid pain medications. Even when taken as directed, opioids can have several side effects including: Tolerance, meaning you might need to take more of a medication for the same pain relief. Nausea, vomiting and/or constipation. Sleepiness, dizziness, dry mouth, confusion, depression or itching. Physical dependence, meaning you have withdrawal symptoms when a medication is stopped ? this can develop within a few days. KNOW YOUR RESPONSIBILITIES It is important to know exactly how much and how often to take the opioid pain medications you are prescribed. Never take opioids in higher amounts or more often than prescribed. Do not combine opioids with alcohol or other drugs that cause drowsiness, such as benzodiazepines, also known as benzos,including diazepam and alprazolam, muscle relaxants or sleep aids. Never sell or share prescriptionopioids. This is illegal. Store opioids in a secure place and out of reach of others (including children, family, friends and visitors). The last page(s) of this document has been signed and retained as a CHART COPY Signatures Patient Education Materials Seroma, Postsurgical Post Op Wound Check, Infection Medication Leaflets My discharge plan and instructions have been reviewed and explained to me and IELVIRA ERIN A understand my current condition and have read and understand these discharge instructions. I have received a written copy of the plan/instructions. If I have questions, I am aware that I should contact my doctor. 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 Patient is POD 6 from a Robotic Assisted Total Laparoscopic hysterectomy with bilateral salpingo-oophorectomy, Omentectomy, Aortic lymph node dissection, Extensive lysis of adhesions, Bladder peritoneum resection, due to a complex 10cm Pelvic Mass in the setting of elevated CA-125. Patient reports that she has been doing fine from a post-op standpoint. She states her pain is controlled, she has been having regular bowel movements, passing gas, and tolerating PO intake. She denies fevers, chills, nausea, vomiting. However, yesterday evening after getting out of the shower she noticed that there was a slight reddish-pink color noted on the outer parameter of her left port site, that was not previously there to her knowledge, extending to her side. She describes the site as more tight but not frankly painful. She reports it appears slightly raised to her prior to coming in. She denies trying alleviating factors such as Benadryl or ice therapy. She denies itching, change in soaps or lotions, or hives surrounding the port sites. She reports her port sites are healing fine without drainage or malodorous discharge. Review of Systems The patient denies fever, chills, chest pain, shortness of breath. No coughing or wheezing. No headaches or dizziness. No change in vision or hearing. . No hot flashes. No easy bruising. Denies nausea/vomiting. No diarrhea or constipation. No rectal bleeding. No hematuria or dysuria. Appetite is intact. Energy level is good from a post-op standpoint. Physical Exam Vitals and Measurements T: 36.6 C (Oral) HR: 72 RR: 18 BP: 151/93 SpO2: 98% WT: 127.6 kg Weight Dosing Weight: 127.6 kg (04/09/24) General: Well appearing, in no acute distress. HEENT: Normocephalic, Atraumatic. Normal hearing. Normal mucosa. Cardiac: Regular rate and rhythm. Respiratory: Airways clear. Abdomen: Soft, appropriately tender post-op, non-distended, no masses, no hernias, normal bowel sounds. No crepitus. Peripheral ecchymosis around each port sites, subjectively normal post-op. Port sites clean/dry/intact without drainage. No diffuse redness noted on the outer periphery of the port sites or skin, no wheals, no hives, no red lesions. Skin nonerythematous. Extremities: Warm. No cyanosis, clubbing, or edema. Musculoskeletal: Normal range of motion. Psychiatric: Normal affect and demeanor. Lab Results WBC: 11.7 10^3/mcL High (04/08/24 23:09:00) RBC: 4.45 10^6/mcL (04/08/24 23:09:00) Hgb: 13.2 G/dL (04/08/24 23:09:00) Hct: 39.7 % (04/08/24 23:09:00) MCV: 89.2 fL (04/08/24 23:09:00) MCH: 29.7 pg (04/08/24:09:00) MCHC: 33.3 G/dL (04/08/24:09:00) RDW: 14 % (04/08/24 23:09:00) Platelet: 296 10^3/mcL (04/08/24:09:00) MPV: 9.1 fL (04/08/24 23:09:00) UA Specimen Type: Clean Catch (04/08/24 23:09:00) UA Color: Yellow (04/08/24 23:09:00) UA Appear: Clear (04/08/24 23:09:00) UA Spec Grav: 1.020 (04/08/24 23:09:00) UA Glucose: Negative. (04/08/24 23:09:00) UA Bili: Negative. (04/08/24 23:09:) UA Ketones: Negative. (04/08/24::) UA Blood: Trace4 Abnormal (04/08/24 23:09:) UA pH: 5.5 (04/08/24 23:09:00) UA Protein: Negative.1 (04/08/24 23:09:00) UA Urobilinogen: 0.2 (04/08/24:09:) UA Nitrite: Negative. (04/08/24:09:) UA Leuk Est: Negative. (04/08/24 23:09:) Urine POC: Negative ( , small amount of free fluid :41:00) Glucose Level: 97 mg/dL (04/08/24 23:09:00) Sodium Level: 142 mmol/L (04/08/24 23:09:00) Potassium Level: 4 mmol/L (04/08/24:09:) Chloride: 106 mmol/L (04/08/24 23:09:00) CO2: 32 mmol/L High (04/08/24 23:09:) Electrolyte Balance: 4 mEq/L (04/08/24 23:09:) BUN: 16 mg/dL (04/08/24 23:09:00) Creatinine Lvl (s): 0.88 mg/dL (04/08/24 23:09:00) BUN/Creatinine Ratio: 18 ratio (04/08/24::) Calcium Lvl: 9.3 mg/dL (04/08/24 23:09:00) Total Protein: 6.9 G/dL (03/25/24 12:53:00) Albumin Level: 3.7 G/dL (03/25/24 12:53:00) Globulin: 3.2 G/dL (03/25/24 12:53:00) A/G Ratio: 1.2 ratio (03/25/24 12:53:00) Bili Total: 0.4 mg/dL (03/25/24 12:53:00) Alk Phos: 78 U/L (03/25/24 12:53:00) AST/SGOT: 14 U/L (03/25/24 12:53:00) ALT/SGPT: 24 U/L (03/25/24 12:53:00) Imaging Results and Diagnostics CT Ab/Pelvis (04/09/24): s/p hysterectomy w/ small amount of free fluid in the pelvic cul-de-sac. Noloculated fluid collection or pelvic hematoma. Prominent soft tissue gas and edema in the abdominalwall, mostly in the left lower abdomen and gas located in the left lower abdomen subcutaneous tissue. Assessment/Plan 43 Years female presenting POD 6 from RATLH, BSO, Omentectomy, Aortic Lymph Node dissection, extensive lysis of adhesions, and bladder peritoneum resection presenting due to concerns of post-op skin changes, found to have moderate subcutaneous gas on CT AB/pelvis that is benign, and likely consistent with normal postop changes from port implants intraoperatively. >> Benign post-op skin concerns - Patient AF, VSS - WBC 11.7, WNL in light of recent surgery - Patient denies N/V, fever/chills, abnormal drainage from incision sites, or increasing pain. - CT Ab/Pelvis (04/09/24): s/p hysterectomy w/ small amount of free fluid in the pelvic cul-de-sac. No loculated fluid collection or pelvic hematoma. Prominent soft tissue gas and edema in the abdominal wall, mostly in the left lower abdomen and gas located in the left lower abdomen subcutaneous tissue. - Exam is benign. +bowel sounds. No crepitus. Peripheral ecchymosis around each port sites, subjectively normal post-op healing. Port sites clean/dry/intact without drainage. No diffuse redness notedon the outer periphery of the port sites or skin. - Low clinical suspicion for cellulitis or gas-forming deep tissue infection, light of clinically stable patient that remains afebrile with benign exam. - Likely gas is due to pneumo-gas insufflation upon insertion of port site and removal of sites, intraoperatively. >>Dispo: Patient is clinically stable. No signs of cellulitis or developing deep tissue infection on exam. Remains afebrile, vital signs stable. Reviewed CT findings with Dr. Palacio, and imagining appears consistent with normal postop changesfrom implantation of port sites and during surgery. Patient will follow-up in office [facility] office04/10/2024. Return precautions given to patient if any further concerns arise. Otherwise, patient isokay for discharge home. Patient seen and examined with the resident Dr. Blunt. Discussed with Dr. Palacio. Problem List/Past Medical History Ongoing Acute superficial venous thrombosis of lower extremity Anxiety with depression Family history of breast cancer in mother Procedure/Surgical History LEEP: 2008 Colposcopy: 2008 Appendectomy: 2002 Medications Inpatient No active inpatient medications Home albuterol MDI (90 mcg/inh) CFC free inhalation aerosol, 1 puff(s), Inhalation, q4h, PRN clonazePAM 0.5 mg oral tablet, 0.25 mg= 0.5 tab(s), Oral, qDay Colace 100 mg oral capsule, 100 mg= 1 cap(s), Oral, BID, PRN FLUoxetine 20 mg oral capsule, 20 mg= 1 cap(s), Oral, qDay ibuprofen 600 mg oral tablet, 600 mg= 1 tab(s), Oral, q6hr Multivitamin, 1 tab(s), Oral, qDay mupirocin 2% topical ointment, 1 roma, Topical, BID oxyCODONE 5 mg oral tablet ( IMMEDIATE release ), 5 mg= 1 tab(s), Oral, q6h, PRN Allergies NKA Social History Smoking: denies Alcohol: denies Drugs: denies Occupation/Living: +/- Alcohol Details: Use: Current. Frequency: 1-2 times per year. Home/Environment Details: Living situation: Home/Independent. Safe place to go: Yes. Domestic Concerns: Denies. Nutrition/Health Details: Caffeine intake amount: 1-2 servings per week. Substance Abuse Details: Use: DENIES. Tobacco Details: Nicotine Use: Never (less than 100 in lifetime). Exposure to Tobacco Smoke Lives in non-smoking home. Family History Alcohol abuse: Maternal Grandfather. Arthritis: Father and Paternal Grandmother. Asthma: Maternal Grandfather. BRCA1 gene mutation detected: Mother. Breast cancer: Maternal Grandmother and Unknown. Depression: Father.Negative: Mother, Sister, Brother, Daughter, Son, Grandparent, Maternal Grandfather, Maternal Grandmother and Paternal Grandmother. Diabetes: Father. Hypertension: Father and Paternal Grandfather. Ovarian cancer: Maternal Grandmother and Unknown. Health Status Family Member(s) Immunizations SARS-CoV-2 (COVID-19) mRNA-1273 vaccine: 0 unknown unit (08/07/21) SARS-CoV-2 (COVID-19) mRNA-1273 vaccine: 0 unknown unit (10/10/20) SARS-CoV-2 (COVID-19) mRNA-1273 vaccine: 0 unknown unit (09/12/20) Digitally Signed by GLORIA VÁSQUEZ MD on 04/09/2024 05:[address] [id number] Consult note Date of Service 04/09/2024 Reason for Consultation Post op concerns History of Present Illness 43 Years old woman who presents to the ER due to concerns of a rash developing postop. Patient is POD 6 from a Robotic Assisted Total Laparoscopic hysterectomy with bilateral salpingo-oophorectomy, Omentectomy, Aortic lymph node dissection, Extensive lysis of adhesions, Bladder peritoneum resection, due to a complex 10cm Pelvic Mass in the setting of elevated CA-125. Patient reports that she has been doing fine from a post-op standpoint. She states her pain is controlled, she has been having regular bowel movements, passing gas, and tolerating PO intake. She denies fevers, chills, nausea, vomiting. However, yesterday evening after getting out of the shower she noticed that there was a slight reddish-pink color noted on the outer parameter of her left port site, that was not previously there to her knowledge, extending to her side. She describes the site as more tight but not frankly painful. She reports it appears slightly raised to her prior to coming in. She denies trying alleviating factors such as Benadryl or ice therapy. She denies itching, change in soaps or lotions, or hives surrounding the port sites. She reports her port sites are healing fine without drainage or malodorous discharge. Review of Systems The patient denies fever, chills, chest pain, shortness of breath. No coughing or wheezing. No headaches or dizziness. No change in vision or hearing. . No hot flashes. No easy bruising. Denies nausea/vomiting. No diarrhea or constipation. No rectal bleeding. No hematuria or dysuria. Appetite is intact. Energy level is good from a post-op standpoint. Physical Exam Vitals and Measurements T: 36.6 C (Oral) HR: 72 RR: 18 BP: 151/93 SpO2: 98% WT: 127.6 kg Weight Dosing Weight: 127.6 kg (04/09/24) General: Well appearing, in no acute distress. HEENT: Normocephalic, Atraumatic. Normal hearing. Normal mucosa. Cardiac: Regular rate and rhythm. Respiratory: Airways clear. Abdomen: Soft, appropriately tender post-op, non-distended, no masses, no hernias, normal bowel sounds. No crepitus. Peripheral ecchymosis around each port sites, subjectively normal post-op. Port sites clean/dry/intact without drainage. No diffuse redness noted on the outer periphery of the port sites or skin, no wheals, no hives, no red lesions. Skin nonerythematous. Extremities: Warm. No cyanosis, clubbing, or edema. Musculoskeletal: Normal range of motion. Psychiatric: Normal affect and demeanor. Lab Results WBC: 11.7 10^3/mcL High (04/08/24 23:09:00) RBC: 4.45 10^6/mcL (04/08/24:09:00) Hgb: 13.2 G/dL (04/08/24 23:09:00) Hct: 39.7 % (04/08/24 23:09:00) MCV: 89.2 fL (04/08/24 23:09:00) MCH: 29.7 pg (04/08/24 23:09:00) MCHC: 33.3 G/dL (04/08/24 23:09:00) RDW: 14 % (04/08/24 23:09:00) Platelet: 296 10^3/mcL (04/08/24:09:00) MPV: 9.1 fL (04/08/24 23:09:00) UA Specimen Type: Clean Catch (04/08/24 23:09:00) UA Color: Yellow (04/08/24 23:09:00) UA Appear: Clear (04/08/24 23:09:00) UA Spec Grav: 1.020 (04/08/24 23:09:00) UA Glucose: Negative. (04/08/24 23:09:00) UA Bili: Negative. (04/08/24 23:09:) UA Ketones: Negative. (04/08/24 23:09:) UA Blood: Trace4 Abnormal (04/08/24 23:09:) UA pH: 5.5 (04/08/24 23:09:00) UA Protein: Negative.1 (04/08/24:09:) UA Urobilinogen: 0.2 (04/08/24:09:00) UA Nitrite: Negative. (04/08/24:09:) UA Leuk Est: Negative. (04/08/24:09:) Urine POC: Negative ( small amount of free fluid :41:00) Glucose Level: 97 mg/dL (04/08/24:09:) Sodium Level: 142 mmol/L (04/08/24:09:) Potassium Level: 4 mmol/L (04/08/24::) Chloride: 106 mmol/L (04/08/24::) CO2: 32 mmol/L High (04/08/24:09:) Electrolyte Balance: 4 mEq/L (04/08/24 23:09:00) BUN: 16 mg/dL (04/08/24:09:) Creatinine Lvl (s): 0.88 mg/dL (04/08/24::) BUN/Creatinine Ratio: 18 ratio (04/08/24:09:) Calcium Lvl: 9.3 mg/dL (04/08/24 23:09:00) Total Protein: 6.9 G/dL (03/25/24 12:53:00) Albumin Level: 3.7 G/dL (03/25/24 12:53:00) Globulin: 3.2 G/dL (03/25/24 12:53:00) A/G Ratio: 1.2 ratio (03/25/24 12:53:00) Bili Total: 0.4 mg/dL (03/25/24 12:53:00) Alk Phos: 78 U/L (03/25/24 12:53:00) AST/SGOT: 14 U/L (03/25/24 12:53:00) ALT/SGPT: 24 U/L (03/25/24 12:53:00) Imaging Results and Diagnostics CT Ab/Pelvis (04/09/24): s/p hysterectomy w/ small amount of free fluid in the pelvic cul-de-sac. Noloculated fluid collection or pelvic hematoma. Prominent soft tissue gas and edema in the abdominalwall, mostly in the left lower abdomen and gas located in the left lower abdomen subcutaneous tissue. Assessment/Plan 43 Years female presenting POD 6 from RATLH, BSO, Omentectomy, Aortic Lymph Node dissection, extensive lysis of adhesions, and bladder peritoneum resection presenting due to concerns of post-op skin changes, found to have moderate subcutaneous gas on CT AB/pelvis that is benign, and likely consistent with normal postop changes from port implants intraoperatively. >> Benign post-op skin concerns - Patient AF, VSS - WBC 11.7, WNL in light of recent surgery - Patient denies N/V, fever/chills, abnormal drainage from incision sites, or increasing pain. - CT Ab/Pelvis (04/09/24): s/p hysterectomy w/ small amount of free fluid in the pelvic cul-de-sac. No loculated fluid collection or pelvic hematoma. Prominent soft tissue gas and edema in the abdominal wall, mostly in the left lower abdomen and gas located in the left lower abdomen subcutaneous tissue. - Exam is benign. +bowel sounds. No crepitus. Peripheral ecchymosis around each port sites, subjectively normal post-op healing. Port sites clean/dry/intact without drainage. No diffuse redness notedon the outer periphery of the port sites or skin. - Low clinical suspicion for cellulitis or gas-forming deep tissue infection, light of clinically stable patient that remains afebrile with benign exam. - Likely gas is due to pneumo-gas insufflation upon insertion of port site and removal of sites, intraoperatively. >>Dispo: Patient is clinically stable. No signs of cellulitis or developing deep tissue infection on exam. Remains afebrile, vital signs stable. Reviewed CT findings with Dr. Palacio, and imagining appears consistent with normal postop changesfrom implantation of port sites and during surgery. Patient will follow-up in office [facility] office04/10/2024. Return precautions given to patient if any further concerns arise. Otherwise, patient isokay for discharge home. Patient seen and examined with the resident Dr. Blunt. Discussed with Dr. Palacio. Problem List/Past Medical History Ongoing Acute superficial venous thrombosis of lower extremity Anxiety with depression Family history of breast cancer in mother Procedure/Surgical History LEEP: 2008 Colposcopy: 2008 Appendectomy: 2002 Medications Inpatient No active inpatient medications Home albuterol MDI (90 mcg/inh) CFC free inhalation aerosol, 1 puff(s), Inhalation, q4h, PRN clonazePAM 0.5 mg oral tablet, 0.25 mg= 0.5 tab(s), Oral, qDay Colace 100 mg oral capsule, 100 mg= 1 cap(s), Oral, BID, PRN FLUoxetine 20 mg oral capsule, 20 mg= 1 cap(s), Oral, qDay ibuprofen 600 mg oral tablet, 600 mg= 1 tab(s), Oral, q6hr Multivitamin, 1 tab(s), Oral, qDay mupirocin 2% topical ointment, 1 roma, Topical, BID oxyCODONE 5 mg oral tablet ( IMMEDIATE release ), 5 mg= 1 tab(s), Oral, q6h, PRN Allergies NKA Social History Smoking: denies Alcohol: denies Drugs: denies Occupation/Living: +/- Alcohol Details: Use: Current. Frequency: 1-2 times per year. Home/Environment Details: Living situation: Home/Independent. Safe place to go: Yes. Domestic Concerns: Denies. Nutrition/Health Details: Caffeine intake amount: 1-2 servings per week. Substance Abuse Details: Use: DENIES. Tobacco Details: Nicotine Use: Never (less than 100 in lifetime). Exposure to Tobacco Smoke Lives in non-smoking home. Family History Alcohol abuse: Maternal Grandfather. Arthritis: Father and Paternal Grandmother. Asthma: Maternal Grandfather. BRCA1 gene mutation detected: Mother. Breast cancer: Maternal Grandmother and Unknown. Depression: Father.Negative: Mother, Sister, Brother, Daughter, Son, Grandparent, Maternal Grandfather, Maternal Grandmother and Paternal Grandmother. Diabetes: Father. Hypertension: Father and Paternal Grandfather. Ovarian cancer: Maternal Grandmother and Unknown. Health Status Family Member(s) Immunizations SARS-CoV-2 (COVID-19) mRNA-1273 vaccine: 0 unknown unit (08/07/21) SARS-CoV-2 (COVID-19) mRNA-1273 vaccine: 0 unknown unit (10/10/20) SARS-CoV-2 (COVID-19) mRNA-1273 vaccine: 0 unknown unit (09/12/20) Digitally Signed by GLORIA VÁSQUEZ MD on 04/09/2024 05:[address] [id number] [facility] Discharge instructions Patient Education 04/09/2024 05:04:00 Post Op Wound Check, Pain Wound Care After Surgery: Pain Surgery involves cutting through layers of skin, fatty tissue, muscle, and sometimes bone and cartilage. Stitches or jignesh are used to close all layers of the wound. The stitches on the inside willdissolve in about 2 to 3 weeks. Any stitches or jignesh used on the outside need to be removed in about 7 to 14 days, depending on the location. It is normal to feel pain at the incision site. The pain decreases as the wound heals. Most of the pain and soreness where the skin was cut should go away by the time the stitches or jignesh are removed. Soreness and pain from deeper tissues may last another week or two. Pain that continues more than a few weeks after surgery or pain that worsens anytime after surgery can be a sign of a problem, such as: Infection Separation of wound edges Collection of blood or fluid below the skin Home care Different types of surgery require different types of care and dressing changes. It is important tofollow all instructions and advice from your surgeon, as well as other members of your healthcare team. Wound care If you smoke, get help to quit. Smoking interferes with wound healing. Ask your doctor about ways to quit. Keep the wound clean, as directed by your healthcare provider. Change the dressing as directed. Change the dressing or sooner if it becomes wet or stained with blood or fluid from the wound. Bathe with a sponge (no shower or tub baths) for the first few days after surgery, or until there is no more drainage from the wound. Unless you received different instructions from your surgeon, youcan then shower. Don't soak the area in water (no baths or swimming) until the stitches, jignesh, or butterfly bandages are removed and any wound opening has dried out and healed. Changing the dressing Wash your hands before changing the dressings. Carefully remove the dressing and tape; don t just yank it off. If it sticks to the wound, you may need to wet it a little to remove it, unless your healthcare provider told you not to wet it. Wash your hands again before putting on a new, clean dressing. Gently clean the wound with clean water (or saline) using gauze or a clean washcloth. Don't rub it or pick at it. Don't use soap, alcohol, hydrogen peroxide, or any other cleanser. If you were told to dry the wound before putting on a new dressing, gently pat it dry. Don't rub. Put the old dressing in a sealed plastic bag and throw it out. Don't reuse it. Wash your hands again when you are done. Types of dressings Your healthcare team will tell you what type of dressing to put on your wound. Follow your healthcare team s instructions carefully, and contact them if you have any questions. Two common types of dressings are described below. You may have one of these or another type. Dry dressing. Use dry gauze. If the wound is still draining, use a nonadherent dressing, which shouldn t stick to the wound. Wet-to-dry dressing. Wet the gauze, and squeeze out the excess water (or saline), before putting iton. Then, cover this with a dry pad. Medicines If you were given antibiotics, take them until they are used up or your healthcare provider tells you to stop. It is important to finish the antibiotics even though you feel better, to make sure the infection has cleared. You can take acetaminophen or ibuprofen for pain, unless you were given a different pain medicine to use. (Note: If you have chronic liver or kidney disease, have ever had a stomach ulcer or gastrointestinal bleeding, or are taking blood thinner medicines, talk with your healthcare provider before using these medicines.) Aspirin should never be used in anyone under 18 years of age who is ill with a fever. It may cause severe liver damage. Follow-up care Follow up with your healthcare provider, or as advised, for your next wound check or removal of your sutures, jignesh, or tape. If a culture was done, you will be notified if the results will affect your treatment. You can callas directed for the results. If imaging tests, such as X-rays, an ultrasound, or CT scan were done, they will be reviewed by a specialist. You will be notified of the results, especially if they affect treatment. Call 911 Call 911 if any of these occur: Trouble breathing or swallowing Wheezing Hoarse voice or trouble speaking Extreme confusion Extreme drowsiness or trouble awakening Fainting or loss of consciousness Rapid heart rate or very slow heart rate Vomiting blood, or large amounts of blood in stool Discomfort in the center of the chest that feels like pressure, squeezing, a sense of fullness, or pain. Discomfort or pain in other upper body areas, such as the back, one or both arms, neck, jaw, or stomach Stroke 911 symptoms (spot a stroke FAST ) oF: Face drooping. One side of the face is numb or droops. oA: Arm weakness. One arm feels weak or numb. oS: Speech difficulty. Speech is slurred, or the person is unable to speak. oT: Time to call 911. Even if the symptoms go away, call 911. When to seek medical advice Call your healthcare provider right away if any of the following occur: Increasing pain at the site of surgery Fever of 100.4 F (38 C) or higher, or as directed by your healthcare provider Redness around the wound Fluid, pus, or blood draining from the wound Vomiting, constipation, or diarrhea [id number] [employer]. [address] [place] [address]. All rights reserved. This information is not intended as a substitute for professional medical care. Always follow yourhealthcare professional's instructions. Follow Up Care 04/09/2024 01:58:54 With:LAYO FAULKNER MD Address: [address] [place] [address] [place] [address]- [phone] When:Within 2 Day(s) [facility] 07-25-2024 Emergency department Discharge summary Discharge Instructions Thank you for allowing [facility] to assist you with your healthcare needs. The following is importantdischarge information regarding your hospital visit. What to Do Next Instructions from Your Care Team No qualifying data available. Post Acute Orders No qualifying data available. You Need to Schedule the Following Appointments Follow Up with LAYO FAULKNER MD When:In 2 days Where:[address] [facility] [place] [address] [phone] Allergies NKA Medications Please ask your primary doctor or pharmacist before taking any other medication not listed, including over the counter drugs, herbal medications, vitamins and or supplements as they may interact withyour home medications. What How Much When Why Instructions Last Dose Unchanged albuterol (albuterol MDI (90 mcg/ inh) CFC free inhalation aerosol) 1 puff(s) by inhalation Every 4 hours as needed for as needed for wheezing Unchanged clonazePAM (clonazePAM 0.5 mg oral tablet) 0.5 tab(s) by mouth Once a day Unchanged docusate (Colace 100 mg oral capsule) 1 cap by mouth Two (2) times a day as needed for for constipation Duration: 30 Days Unchanged FLUoxetine (FLUoxetine 20 mg oral capsule) 1 cap by mouth Once a day Unchanged ibuprofen (ibuprofen 600 mg oral tablet) 1 tab(s) by mouth Every 6 hours Duration: 7 Days Unchanged multivitamin (Multivitamin) 1 tab(s) by mouth Once a day Unchanged mupirocin topical (mupirocin 2% topical ointment) 1 application Topical Two (2) times a day Bilateral intranasal application twice daily x 5 days pre-surgery &/ or as many days pre-surgery as possible. Unchanged oxyCODONE (oxyCODONE 5 mg oral tablet ( IMMEDIATE release )) 1 tab(s) by mouth Every 6 hours as needed for for pain Post-op pain Duration: 5 Days Please take this list to your next doctor s visit. Bring all medications you take, including over the counter medications, herbals and other supplements with you to your doctor s visit. Patients and families are reminded to discard old lists and to update any records with all medication providers or retail pharmacies. Education Materials Wound Care After Surgery: Pain Surgery involves cutting through layers of skin, fatty tissue, muscle, and sometimes bone and cartilage. Stitches or jignesh are used to close all layers of the wound. The stitches on the inside willdissolve in about 2 to 3 weeks. Any stitches or jignesh used on the outside need to be removed in about 7 to 14 days, depending on the location. It is normal to feel pain at the incision site. The pain decreases as the wound heals. Most of the pain and soreness where the skin was cut should go away by the time the stitches or jignesh are removed. Soreness and pain from deeper tissues may last another week or two. Pain that continues more than a few weeks after surgery or pain that worsens anytime after surgery can be a sign of a problem, such as: Infection Separation of wound edges Collection of blood or fluid below the skin Home care Different types of surgery require different types of care and dressing changes. It is important tofollow all instructions and advice from your surgeon, as well as other members of your healthcare team. Wound care If you smoke, get help to quit. Smoking interferes with wound healing. Ask your doctor about ways to quit. Keep the wound clean, as directed by your healthcare provider. Change the dressing as directed. Change the dressing or sooner if it becomes wet or stained with blood or fluid from the wound. Bathe with a sponge (no shower or tub baths) for the first few days after surgery, or until there is no more drainage from the wound. Unless you received different instructions from your surgeon, youcan then shower. Don't soak the area in water (no baths or swimming) until the stitches, jignesh, or butterfly bandages are removed and any wound opening has dried out and healed. Changing the dressing Wash your hands before changing the dressings. Carefully remove the dressing and tape; don t just yank it off. If it sticks to the wound, you may need to wet it a little to remove it, unless your healthcare provider told you not to wet it. Wash your hands again before putting on a new, clean dressing. Gently clean the wound with clean water (or saline) using gauze or a clean washcloth. Don't rub it or pick at it. Don't use soap, alcohol, hydrogen peroxide, or any other cleanser. If you were told to dry the wound before putting on a new dressing, gently pat it dry. Don't rub. Put the old dressing in a sealed plastic bag and throw it out. Don't reuse it. Wash your hands again when you are done. Types of dressings Your healthcare team will tell you what type of dressing to put on your wound. Follow your healthcare team s instructions carefully, and contact them if you have any questions. Two common types of dressings are described below. You may have one of these or another type. Dry dressing. Use dry gauze. If the wound is still draining, use a nonadherent dressing, which shouldn t stick to the wound. Wet-to-dry dressing. Wet the gauze, and squeeze out the excess water (or saline), before putting iton. Then, cover this with a dry pad. Medicines If you were given antibiotics, take them until they are used up or your healthcare provider tells you to stop. It is important to finish the antibiotics even though you feel better, to make sure the infection has cleared. You can take acetaminophen or ibuprofen for pain, unless you were given a different pain medicine to use. (Note: If you have chronic liver or kidney disease, have ever had a stomach ulcer or gastrointestinal bleeding, or are taking blood thinner medicines, talk with your healthcare provider before using these medicines.) Aspirin should never be used in anyone under 18 years of age who is ill with a fever. It may cause severe liver damage. Follow-up care Follow up with your healthcare provider, or as advised, for your next wound check or removal of your sutures, jignesh, or tape. If a culture was done, you will be notified if the results will affect your treatment. You can callas directed for the results. If imaging tests, such as X-rays, an ultrasound, or CT scan were done, they will be reviewed by a specialist. You will be notified of the results, especially if they affect treatment. Call 911 Call 911 if any of these occur: Trouble breathing or swallowing Wheezing Hoarse voice or trouble speaking Extreme confusion Extreme drowsiness or trouble awakening Fainting or loss of consciousness Rapid heart rate or very slow heart rate Vomiting blood, or large amounts of blood in stool Discomfort in the center of the chest that feels like pressure, squeezing, a sense of fullness, or pain. Discomfort or pain in other upper body areas, such as the back, one or both arms, neck, jaw, or stomach Stroke 911 symptoms (spot a stroke FAST ) oF: Face drooping. One side of the face is numb or droops. oA: Arm weakness. One arm feels weak or numb. oS: Speech difficulty. Speech is slurred, or the person is unable to speak. oT: Time to call 911. Even if the symptoms go away, call 911. When to seek medical advice Call your healthcare provider right away if any of the following occur: Increasing pain at the site of surgery Fever of 100.4 F (38 C) or higher, or as directed by your healthcare provider Redness around the wound Fluid, pus, or blood draining from the wound Vomiting, constipation, or diarrhea [id number] [employer]. [address] [place] [address]. All rights reserved. This information is not intended as a substitute for professional medical care. Always follow yourhealthcare professional's instructions. Additional Information VACCINATE! IT SAVES LIVES! Members of the community who have not yet received the COVID-19 vaccine and would like to receive it can visit one of [facility] vaccine clinics. There are many vaccine clinic locations within the [facility]. For locations and available times, please visit www.gettheshot.coronavirus.[place].gov/. It is important to note that some COVID mobile vaccine clinics are held outdoors and may be canceled in rainy or stormy conditions. To learn more about pediatric vaccinations (ages 5-11), we invite you to visit the [facility] webpage. https://www.[email or web address].org/pages/[email or web address]-[email or web address]-[email or web address]-Emo stions.htmlTo learn more about the COVID-19 vaccine, we invite you to visit the CDC website for a list of frequently asked questions. https://www.cdc.gov/coronavirus/2019-ncov/vaccines/faq.html [employer] Patient Portal Access Instructions: Stay connected with your healthcare team and access your personal medical information anytime with the [employer] Patient Portal. If you would like a full copy of your medical records please contact the [facility] Medical Records Department Saturday through Saturday between 8a.m. and 4:30p.m. Please follow the directions below to access the portal: 1.Access the email account you provided upon registration to the hospital.2.Look for an invitation email from [facility].3.Open the email and access the invitation link: Accept Invitation to [employer]4.Fill in the required schneider to create your account. Sign into [email or web address] with your username and password that you created in the above steps to stay up to date. You can then view a summary of results, a summary of your visits, and the ability to download your summaries to your computer or send the information securely to a physician. Remember that your healthcare information is confidential, so carefully consider who you will allow to register on the [employer] Patient Portal for access to your information. You can also access the [employer] Patient Portal on the [employer] roma. Simply click on Health Records under R&L and then click on the [employer] logo. HOW TO SAFELY DISPOSE OF PRESCRIPTION MEDICATIONS Please use one of the following methods to safely dispose of your unused medications. 1.Use a drug disposal kit: the drug disposal pouch allows you to safely discard your old and unuseddrugs. Ask your nurse to give you one when you are discharged.2.Visit a local take-back location: Many local pharmacies and police departments have programs that collect old and unwanted prescriptiondrugs. Call your local pharmacy or go to http://MexxBooks.AllPeers/4H1Wz0s to find one close to you.3.Make use of household items: Use cat litter or old coffee grounds to dispose medications if other options arenot available. Mix your drugs with these household products, seal them in an airtight container andthrow it into the garbage. Call [facility]: [phone] to be sure your drugs can be disposed of in this way. Some medicines may require a different approach.4.Never flush your medications down the toilet. IF YOU HAVE BEEN PRESCRIBED AN OPIOIDS FOR PAIN If you have been prescribed an opioid (such as hydrocodone, oxycodone or morphine), it is critical to understand the possible side effects and risks of opioid pain medications. Even when taken as directed, opioids can have several side effects including: Tolerance, meaning you might need to take more of a medication for the same pain relief. Nausea, vomiting and/or constipation. Sleepiness, dizziness, dry mouth, confusion, depression or itching. Physical dependence, meaning you have withdrawal symptoms when a medication is stopped ? this can develop within a few days. KNOW YOUR RESPONSIBILITIES It is important to know exactly how much and how often to take the opioid pain medications you are prescribed. Never take opioids in higher amounts or more often than prescribed. Do not combine opioids with alcohol or other drugs that cause drowsiness, such as benzodiazepines, also known as benzos,including diazepam and alprazolam, muscle relaxants or sleep aids. Never sell or share prescriptionopioids. This is illegal. Store opioids in a secure place and out of reach of others (including children, family, friends and visitors). The last page(s) of this document has been signed and retained as a CHART COPY Signatures Patient Education Materials Post Op Wound Check, Pain Medication Leaflets My discharge plan and instructions have been reviewed and explained to me and I,JESSICA ALARCON understand my current condition and have read and understand these discharge instructions. I have received a written copy of the plan/instructions. If I have questions, I am aware that I should contact my doctor. 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 Consult note Date of Service 04/09/2024 Reason for Consultation Post op concerns History of Present Illness 43 Years old woman who presents to the ER due to concerns of a rash developing postop. Patient is POD 6 from a Robotic Assisted Total Laparoscopic hysterectomy with bilateral salpingo-oophorectomy, Omentectomy, Aortic lymph node dissection, Extensive lysis of adhesions, Bladder peritoneum resection, due to a complex 10cm Pelvic Mass in the setting of elevated CA-125. Patient reports that she has been doing fine from a post-op standpoint. She states her pain is controlled, she has been having regular bowel movements, passing gas, and tolerating PO intake. She denies fevers, chills, nausea, vomiting. However, yesterday evening after getting out of the shower she noticed that there was a slight reddish-pink color noted on the outer parameter of her left port site, that was not previously there to her knowledge, extending to her side. She describes the site as more tight but not frankly painful. She reports it appears slightly raised to her prior to coming in. She denies trying alleviating factors such as Benadryl or ice therapy. She denies itching, change in soaps or lotions, or hives surrounding the port sites. She reports her port sites are healing fine without drainage or malodorous discharge. Review of Systems The patient denies fever, chills, chest pain, shortness of breath. No coughing or wheezing. No headaches or dizziness. No change in vision or hearing. . No hot flashes. No easy bruising. Denies nausea/vomiting. No diarrhea or constipation. No rectal bleeding. No hematuria or dysuria. Appetite is intact. Energy level is good from a post-op standpoint. Physical Exam Vitals and Measurements T: 36.6 C (Oral) HR: 72 RR: 18 BP: 151/93 SpO2: 98% WT: 127.6 kg Weight Dosing Weight: 127.6 kg (04/09/24) General: Well appearing, in no acute distress. HEENT: Normocephalic, Atraumatic. Normal hearing. Normal mucosa. Cardiac: Regular rate and rhythm. Respiratory: Airways clear. Abdomen: Soft, appropriately tender post-op, non-distended, no masses, no hernias, normal bowel sounds. No crepitus. Peripheral ecchymosis around each port sites, subjectively normal post-op. Port sites clean/dry/intact without drainage. No diffuse redness noted on the outer periphery of the port sites or skin, no wheals, no hives, no red lesions. Skin nonerythematous. Extremities: Warm. No cyanosis, clubbing, or edema. Musculoskeletal: Normal range of motion. Psychiatric: Normal affect and demeanor. Lab Results WBC: 11.7 10^3/mcL High (04/08/24 23:09:00) RBC: 4.45 10^6/mcL (04/08/24 23:09:00) Hgb: 13.2 G/dL (04/08/24 23:09:00) Hct: 39.7 % (04/08/24 23:09:00) MCV: 89.2 fL (04/08/24 23:09:00) MCH: 29.7 pg (04/08/24 23:09:00) MCHC: 33.3 G/dL (04/08/24 23:09:00) RDW: 14 % (04/08/24:09:00) Platelet: 296 10^3/mcL (04/08/24 23:09:00) MPV: 9.1 fL (04/08/24 23:09:00) UA Specimen Type: Clean Catch (04/08/24:09:00) UA Color: Yellow (04/08/24:09:00) UA Appear: Clear (04/08/24:09:) UA Spec Grav: 1.020 (04/08/24:09:) UA Glucose: Negative. (04/08/24:09:) UA Bili: Negative. (04/08/24:09:) UA Ketones: Negative. (04/08/24:09:) UA Blood: Trace4 Abnormal (04/08/24:09:00) UA pH: 5.5 (04/08/24 23:09:00) UA Protein: Negative.1 (04/08/24:09:00) UA Urobilinogen: 0.2 (04/08/24:09:00) UA Nitrite: Negative. (04/08/24::) UA Leuk Est: Negative. (04/08/24:09:) Urine POC: Negative ( , small amount of free fluid 09:41:00) Glucose Level: 97 mg/dL (04/08/24 23:09:00) Sodium Level: 142 mmol/L (04/08/24 23:09:00) Potassium Level: 4 mmol/L (04/08/24 23:09:00) Chloride: 106 mmol/L (04/08/24 23:09:00) CO2: 32 mmol/L High (04/08/24 23:09:00) Electrolyte Balance: 4 mEq/L (04/08/24 23:09:00) BUN: 16 mg/dL (04/08/24 23:09:00) Creatinine Lvl (s): 0.88 mg/dL (04/08/24 23:09:00) BUN/Creatinine Ratio: 18 ratio (04/08/24 23:09:00) Calcium Lvl: 9.3 mg/dL (04/08/24 23:09:00) Total Protein: 6.9 G/dL (03/25/24 12:53:00) Albumin Level: 3.7 G/dL (03/25/24 12:53:00) Globulin: 3.2 G/dL (03/25/24 12:53:00) A/G Ratio: 1.2 ratio (03/25/24 12:53:00) Bili Total: 0.4 mg/dL (03/25/24 12:53:00) Alk Phos: 78 U/L (03/25/24 12:53:00) AST/SGOT: 14 U/L (03/25/24 12:53:00) ALT/SGPT: 24 U/L (03/25/24 12:53:00) Imaging Results and Diagnostics CT Ab/Pelvis (04/09/24): s/p hysterectomy w/ small amount of free fluid in the pelvic cul-de-sac. Noloculated fluid collection or pelvic hematoma. Prominent soft tissue gas and edema in the abdominalwall, mostly in the left lower abdomen and gas located in the left lower abdomen subcutaneous tissue. Assessment/Plan 43 Years female presenting POD 6 from RATLH, BSO, Omentectomy, Aortic Lymph Node dissection, extensive lysis of adhesions, and bladder peritoneum resection presenting due to concerns of post-op skin changes, found to have moderate subcutaneous gas on CT AB/pelvis that is benign, and likely consistent with normal postop changes from port implants intraoperatively. >> Benign post-op skin concerns - Patient AF, VSS - WBC 11.7, WNL in light of recent surgery - Patient denies N/V, fever/chills, abnormal drainage from incision sites, or increasing pain. - CT Ab/Pelvis (04/09/24): s/p hysterectomy w/ small amount of free fluid in the pelvic cul-de-sac. No loculated fluid collection or pelvic hematoma. Prominent soft tissue gas and edema in the abdominal wall, mostly in the left lower abdomen and gas located in the left lower abdomen subcutaneous tissue. - Exam is benign. +bowel sounds. No crepitus. Peripheral ecchymosis around each port sites, subjectively normal post-op healing. Port sites clean/dry/intact without drainage. No diffuse redness notedon the outer periphery of the port sites or skin. - Low clinical suspicion for cellulitis or gas-forming deep tissue infection, light of clinically stable patient that remains afebrile with benign exam. - Likely gas is due to pneumo-gas insufflation upon insertion of port site and removal of sites, intraoperatively. >>Dispo: Patient is clinically stable. No signs of cellulitis or developing deep tissue infection on exam. Remains afebrile, vital signs stable. Reviewed CT findings with Dr. Palacio, and imagining appears consistent with normal postop changesfrom implantation of port sites and during surgery. Patient will follow-up in office [facility] office04/10/2024. Return precautions given to patient if any further concerns arise. Otherwise, patient isokay for discharge home. Patient seen and examined with the resident Dr. Blunt. Discussed with Dr. Palacio. Problem List/Past Medical History Ongoing Acute superficial venous thrombosis of lower extremity Anxiety with depression Family history of breast cancer in mother Procedure/Surgical History LEEP: 2008 Colposcopy: 2008 Appendectomy: 2002 Medications Inpatient No active inpatient medications Home albuterol MDI (90 mcg/inh) CFC free inhalation aerosol, 1 puff(s), Inhalation, q4h, PRN clonazePAM 0.5 mg oral tablet, 0.25 mg= 0.5 tab(s), Oral, qDay Colace 100 mg oral capsule, 100 mg= 1 cap(s), Oral, BID, PRN FLUoxetine 20 mg oral capsule, 20 mg= 1 cap(s), Oral, qDay ibuprofen 600 mg oral tablet, 600 mg= 1 tab(s), Oral, q6hr Multivitamin, 1 tab(s), Oral, qDay mupirocin 2% topical ointment, 1 roma, Topical, BID oxyCODONE 5 mg oral tablet ( IMMEDIATE release ), 5 mg= 1 tab(s), Oral, q6h, PRN Allergies NKA Social History Smoking: denies Alcohol: denies Drugs: denies Occupation/Living: +/- Alcohol Details: Use: Current. Frequency: 1-2 times per year. Home/Environment Details: Living situation: Home/Independent. Safe place to go: Yes. Domestic Concerns: Denies. Nutrition/Health Details: Caffeine intake amount: 1-2 servings per week. Substance Abuse Details: Use: DENIES. Tobacco Details: Nicotine Use: Never (less than 100 in lifetime). Exposure to Tobacco Smoke Lives in non-smoking home. Family History Alcohol abuse: Maternal Grandfather. Arthritis: Father and Paternal Grandmother. Asthma: Maternal Grandfather. BRCA1 gene mutation detected: Mother. Breast cancer: Maternal Grandmother and Unknown. Depression: Father.Negative: Mother, Sister, Brother, Daughter, Son, Grandparent, Maternal Grandfather, Maternal Grandmother and Paternal Grandmother. Diabetes: Father. Hypertension: Father and Paternal Grandfather. Ovarian cancer: Maternal Grandmother and Unknown. Health Status Family Member(s) Immunizations SARS-CoV-2 (COVID-19) mRNA-1273 vaccine: 0 unknown unit (08/07/21) SARS-CoV-2 (COVID-19) mRNA-1273 vaccine: 0 unknown unit (10/10/20) SARS-CoV-2 (COVID-19) mRNA-1273 vaccine: 0 unknown unit (09/12/20) Digitally Signed by GLORIA VÁSQUEZ MD on 04/09/2024 05:[address] [id number] Hospital Discharge instructions Patient Education 04/08/2024 22:49:19 Hysterectomy: Surgical Procedures Hysterectomy: Surgical Procedures A hysterectomy is the removal of a woman s uterus. It can relieve symptoms such as severe pain and bleeding. If you have cancer, it may save your life. You will discuss what type of surgery you will have with your health care provider. This will depend on your health problem. If you have any questions or concerns, let your health care provider know. Reaching the uterus There are several ways to reach the uterus to remove it. The best approach depends on the reason for your surgery. The 3 main approaches are described below: Vaginal. An incision is made inside the vagina. The uterus is then removed through this incision. This can be done if the uterus is not too large. Laparoscopic. A thin tube with a camera and a light on the end is used. This is called a laparoscope. The doctor makes 2 to 4 small incisions in the abdomen. The scope is put through 1 of the incisions. The scope sends live pictures to a video screen. This allows the doctor see inside the abdomen. Surgical tools are placed through the other small incisions. The uterus can be removed through theseincisions or through an incision made in the vagina. One of the following procedures may be done: oThe uterus is removed through a small incision in the vagina. This is called LAVH. oThe uterus is removed through the small incisions in the abdomen. The cervix is left in place. This is called LSH. oThe uterus and cervix are removed through the small incisions in the abdomen. This is called TLH. oDuring any of these procedures, robotic technique may be used. This assists the surgeon s vision and hand movements. Abdominal. One incision of 4 to 6 inches is made in the abdomen. The uterus is removed through thisincision. Types of Hysterectomy When the uterus is removed, the cervix may be left in place. Or it may also be removed. If it s removed, the top of the vagina is closed. In certain cases, the ovaries and fallopian tubes are also removed. Removing the uterus. During a total (simple) hysterectomy, the uterus and cervix are removed. During a subtotal hysterectomy, only the uterus is removed. The cervix is left in place. This is also called a supracervical hysterectomy. In either case, the ovaries and fallopian tubes remain. If you have not yet reached menopause, the ovaries will keep making hormones. You may still feel the changes of menstrual cycles. But you will not have periods and can t become . Removing the uterus, ovaries, and tubes. Along with the uterus, the ovaries and fallopian tubes mayalso be removed. This is called a hysterectomy with salpingo- oophorectomy. It causes the body s estrogen levels to drop quickly. This is called surgical menopause. Women who have not reached menopause before surgery may have sudden symptoms. But these symptoms can be treated, most commonly through estrogen replacement therapy. Deciding on hysterectomy You and your healthcare provider can discuss the best options for you. As you decide, your providermay ask you to think about the following: Is your health problem getting in the way of your daily life? Is the problem getting worse? If not,might other treatments be tried first? Do you want to have children? If so, other treatments should be considered. Should the fallopian tubes be removed too? This will reduce the chances of ovarian cancer since we now know that many ovarian cancers actually come from the tubes. Should the ovaries be removed too? This is often done to treat or prevent cancer. If removal is needed, talk to your healthcare provider about estrogen replacement therapy. Risks and possible complications of a hysterectomy include Side effects from the anesthesia Infection Bleeding, with a possible need for transfusion Damage to nearby organs (bladder, bowel, ureters, or nearby nerves or blood vessels) Blood clots in the legs or lungs Formation of scar tissue that may cause pain or bowel obstruction in the future. This is more common with the abdominal approach. Need for second surgery [id number] [employer]. [address] [place] [address]. All rights reserved. This information is not intended as a substitute for professional medical care. Always follow yourhealthcare professional's instructions. Follow Up Care 04/08/2024 22:36:52 With:LAYO FAULKNER MD Address: [address] [place] [address] [place] [address]- [phone] When:2-4 days With:AD[facility]ARCIA [facility] Address: [address] [place] [address] [address] [place], [place] [id number]- [phone] When:2-4 days With:Go to emergency room if symptoms worsen Address:Unknown When:2-4 days [facility] 07-24-2024 Note ORIGINAL EXAMINATION: CT OF THE ABDOMEN AND PELVIS WITH CONTRAST 04/08/2024 11:54 pm TECHNIQUE: CT of the abdomen and pelvis was performed with the administration of intravenous contrast. Multiplanar reformatted images are provided for review. Automated exposure control, iterative reconstruction, and/or weight based adjustment of the mA/kV was utilized to reduce the radiation dose to as low as reasonably achievable. COMPARISON: Ultrasound pelvis on 03/23/2024 HISTORY: ORDERING SYSTEM PROVIDED HISTORY: Reason for Exam: post op pain, redness abdomen Hysterectomy on 04/03/2024 FINDINGS: Lower Chest: No acute findings. Organs: The liver, biliary tree, pancreas, spleen, adrenal glands, kidneys, and ureters show no sign of acute abnormality. GI/Bowel: None there is no intestinal obstruction or inflammation. Appendix is been removed. There is no abnormal fluid collection in the abdomen. A small amount of free intraperitoneal air is present. Pelvis: Uterus is been removed. Urinary bladder is partly distended with no sign of abnormality. There is a small amount of free fluid in the pelvic cul-de-sac. There is no loculated fluid collection and no pelvic hematoma. There is no adnexal abnormality. Peritoneum/Retroperitoneum: Abdominal aorta and inferior vena cava are normal in size. There is no retroperitoneal lymph node enlargement or hematoma. Bones/Soft Tissues: There is prominent soft tissue gas in the abdominal wall, mostly in the left lower abdomen. Moderate subcutaneous edema is in the lower anterior abdominal wall is also present. There is no loculated fluid collection. There is small amount of soft tissue gas in the abdominal wall musculature. IMPRESSION: 1. Status post hysterectomy. There is a small amount of free fluid in the pelvic cul-de-sac. There is no loculated fluid collection or pelvic hematoma. 2. Prominent soft tissue gas and edema in the abdominal wall, mostly in the left lower abdomen. The amount of soft tissue gas is larger than expected for 5 days postoperative, especially the gas located in the left lower abdomen, and subcutaneous gas-forming infection is not excluded. 3. Small amount of free intraperitoneal air is likely due to recent surgery. Interpreted by: Ben Celeste MD Preliminary Report By: Ben Celeste MD Electronically signed By Ben Celeste MD Dictated Date: 04/08/2024 11:56:46 PM Prelim Date: 04/09/2024 12:04:36 AM Sign Date: 04/09/2024 12:04:36 AM Ordering Provider: [facility]07-19-2024 Hospital Discharge instructions Patient Education 04/03/2024 16:50:22 - [facility] General Discharge Guidelines (05/31/2023)(CUSTOM) [facility] SAME DAY SURGERY DISCHARGE INSTRUCTIONS PLEASE FOLLOW THE INSTRUCTIONS BELOW MARKED WITH AN X: __X_Regular Diet: Start with clear liquids, then soup and crackers. Gradually add other foods unless otherwise instructed by your surgeon __X_Drink extra fluids ACTIVTY: __X_Since you have had anesthetic, it would be advisable not to drive, drink alcohol, or make majordecisions over the next 24 hours. You may require more rest tonight and tomorrow __X_Do not drive vehicle while taking narcotics and as directed by your Surgeon ____Restrict activity as follows: _X___Do not have sexual intercourse. Nothing in the vagina-No tampons or Douching ____No heavy lifting, pushing, or straining ____Elevate operative limb ____Ice as directed __X_Follow all written and verbal instructions given to you by your Doctor ____Other: BATHING/SHOWERING ____Sponge bathe until office visit. ____Sitting in tub of warm water may relieve discomfort ____May tub bathe _X___May shower in 24-48 hours with clean linen unless otherwise instructed by your Doctor DRESSING: _X___Keep operative area clean and dry _X___Check the operative area for signs of bleeding. Apply pressure to the bleeding site if necessary. _X___Change drip pad as needed ____Wear scrotal support for comfort WATCH FOR SIGNS OF INFECTION: (Usually appears 36-48 hours after surgery) Increased temperature (101 degrees Fahrenheit or higher) Redness or swelling Increased pain Foul odor or drainage If you have any questions, please call your doctor at the number listed on your follow-up instructions. 04/03/2024 16:49:24 Total Laparoscopic Hysterectomy, Care After Total Laparoscopic Hysterectomy, Care After This sheet gives you information about how to care for yourself after your procedure. Your health care provider may also give you more specific instructions. If you have problems or questions, contact your health care provider. What can I expect after the procedure? After the procedure, it is common to have: Pain and bruising around your incisions. A sore throat, if a breathing tube was used during surgery. Fatigue. Poor appetite. Less interest in sex. If your ovaries were also removed, it is also common to have symptoms of menopause such as hot flashes, night sweats, and lack of sleep (insomnia). Follow these instructions at home: Bathing Do not take baths, swim, or use a hot tub until your health care provider approves. You may need toonly take showers for 2 3 weeks. Keep your bandage (dressing) dry until your health care provider says it can be removed. Incision care Follow instructions from your health care provider about how to take care of your incisions. Make sure you: ?Wash your hands with soap and water before you change your dressing. If soap and water are not available, use hand polishing machine operator helper. ?Change your dressing as told by your health care provider. ?Leave stitches (sutures), skin glue, or adhesive strips in place. These skin closures may need to stay in place for 2 weeks or longer. If adhesive strip edges start to loosen and curl up, you may trim the loose edges. Do not remove adhesive strips completely unless your health care provider tells you to do that. Check your incision area every day for signs of infection. Check for: ?Redness, swelling, or pain. ?Fluid or blood. ?Warmth. ?Pus or a bad smell. Activity Get plenty of rest and sleep. Do not lift anything that is heavier than 10 lbs (4.5 kg) for one month after surgery, or as long as told by your health care provider. Do not drive or use heavy machinery while taking prescription pain medicine. Do not drive for 24 hours if you were given a medicine to help you relax (sedative). Return to your normal activities as told by your health care provider. Ask your health care provider what activities are safe for you. Lifestyle Do not use any products that contain nicotine or tobacco, such as cigarettes and e-cigarettes. These can delay healing. If you need help quitting, ask your health care provider. Do not drink alcohol until your health care provider approves. General instructions Do not douche, use tampons, or have sex for at least 6 weeks, or as told by your health care provider. Take cbto-bzb-epammot and prescription medicines only as told by your health care provider. To monitor yourself for a fever, take your temperature at least once a day during recovery. If you struggle with physical or emotional changes after your procedure, speak with your health care provider or a therapist. To prevent or treat constipation while you are taking prescription pain medicine, your health care provider may recommend that you: ?Drink enough fluid to keep your urine clear or pale yellow. ?Take kgnn-sjj-sghojre or prescription medicines. ?Eat foods that are high in fiber, such as fresh fruits and vegetables, whole grains, and beans. ?Limit foods that are high in fat and processed sugars, such as fried and sweet foods. Keep all follow-up visits as told by your health care provider. This is important. Contact a health care provider if: You have chills or a fever. You have redness, swelling, or pain around an incision. You have fluid or blood coming from an incision. Your incision feels warm to the touch. You have pus or a bad smell coming from an incision. An incision breaks open. You feel dizzy or light-headed. You have pain or bleeding when you urinate. You have diarrhea, nausea, or vomiting that does not go away. You have abnormal vaginal discharge. You have a rash. You have pain that does not get better with medicine. Get help right away if: You have a fever and your symptoms suddenly get worse. You have severe abdominal pain. You have chest pain. You have shortness of breath. You faint. You have pain, swelling, or redness on your leg. You have heavy vaginal bleeding with blood clots. Summary After the procedure it is common to have abdominal pain. Your provider will give you medication forthis. Do not take baths, swim, or use a hot tub until your health care provider approves. Do not lift anything that is heavier than 10 lbs (4.5 kg) for one month after surgery, or as long as told by your health care provider. Notify your provider if you have any signs or symptoms of infection after the procedure. This information is not intended to replace advice given to you by your health care provider. Make sure you discuss any questions you have with your health care provider. Document Released: 06/23/2014 Document Revised: 08/15/2018 Document Reviewed: 11/13/2017 [employer] Patient Education 2020 [employer]. Follow Up Care 03/26/2024 09:40:50 With:LAYO FAULKNER MD Address: [address] [place] [address] [place] [address] [phone] When: Unknown Comments:Follow-up as scheduled [facility] 07-19-2024 Anesthesiology Consult note Patient: JESSICA ALARCON Age: 43 years Sex: Female : 1980 Associated Diagnoses: None Author: CE JERONIMO MD Postoperative Information Post Operative Info: Post op day: Post Anesthesia Care Unit. Patient location: PACU. Assessment Postanesthesia assessment Vitals: Vital signs from flowsheet : Vital Signs 04/03/2024 16:20 EDT Temperature Temporal Artery 35.9 DegC Peripheral Pulse Rate 86 bpm Respiratory Rate 16 br/min Systolic Blood Pressure Non-Invasive 116 mmHg Diastolic Blood Pressure Non-Invasive 84 mmHg 04/03/2024 16:11 EDT Temperature Temporal Artery 36.6 DegC Heart Rate Monitored 91 bpm Respiratory Rate 18 br/min Systolic Blood Pressure Non-Invasive 107 mmHg Diastolic Blood Pressure Non-Invasive 70 mmHg Mean Arterial Pressure (NBP) 82 mmHg 04/03/2024 15:56 EDT Heart Rate Monitored 89 bpm Systolic Blood Pressure Non-Invasive 110 mmHg Diastolic Blood Pressure Non-Invasive 66 mmHg Mean Arterial Pressure (NBP) 80 mmHg 04/03/2024 15:41 EDT Heart Rate Monitored 99 bpm Respiratory Rate 18 br/min Systolic Blood Pressure Non-Invasive 119 mmHg Diastolic Blood Pressure Non-Invasive 71 mmHg Mean Arterial Pressure (NBP) 84 mmHg 04/03/2024 15:26 EDT Heart Rate Monitored 87 bpm Respiratory Rate 16 br/min Systolic Blood Pressure Non-Invasive 111 mmHg Diastolic Blood Pressure Non-Invasive 70 mmHg Mean Arterial Pressure (NBP) 80 mmHg 04/03/2024 15:11 EDT Temperature Temporal Artery 36.8 DegC Heart Rate Monitored 87 bpm Respiratory Rate 16 br/min Systolic Blood Pressure Non-Invasive 112 mmHg Diastolic Blood Pressure Non-Invasive 62 mmHg Mean Arterial Pressure (NBP) 75 mmHg 04/03/2024 15:10 EDT Heart Rate Monitored 94 bpm bpm Respiratory Rate - Anes 0 br/min br/min 04/03/2024 15:05 EDT Heart Rate Monitored 97 bpm bpm Respiratory Rate - Anes 25 br/min br/min 04/03/2024 15:00 EDT Heart Rate Monitored 71 bpm bpm Respiratory Rate - Anes 18 br/min br/min Systolic Blood Pressure Non-Invasive 114 mmHg mmHg Diastolic Blood Pressure Non-Invasive 69 mmHg mmHg 04/03/2024 14:57 EDT Systolic Blood Pressure Non-Invasive 115 mmHg mmHg Diastolic Blood Pressure Non-Invasive 64 mmHg mmHg 04/03/2024 14:55 EDT Heart Rate Monitored 72 bpm bpm Respiratory Rate - Anes 18 br/min br/min 04/03/2024 14:54 EDT Systolic Blood Pressure Non-Invasive 108 mmHg mmHg Diastolic Blood Pressure Non-Invasive 61 mmHg mmHg 04/03/2024 14:51 EDT Systolic Blood Pressure Non-Invasive 105 mmHg mmHg Diastolic Blood Pressure Non-Invasive 61 mmHg mmHg 04/03/2024 14:50 EDT Heart Rate Monitored 74 bpm bpm Respiratory Rate - Anes 18 br/min br/min 04/03/2024 14:48 EDT Systolic Blood Pressure Non-Invasive 103 mmHg mmHg Diastolic Blood Pressure Non-Invasive 62 mmHg mmHg 04/03/2024 14:45 EDT Temperature (Route Not Specified) 36.7 DegC DegC Heart Rate Monitored 68 bpm bpm Respiratory Rate - Anes 18 br/min br/min Systolic Blood Pressure Non-Invasive 101 mmHg mmHg Diastolic Blood Pressure Non-Invasive 62 mmHg mmHg 04/03/2024 14:42 EDT Systolic Blood Pressure Non-Invasive 100 mmHg mmHg Diastolic Blood Pressure Non-Invasive 71 mmHg mmHg 04/03/2024 14:40 EDT Temperature (Route Not Specified) 36.68 DegC DegC Heart Rate Monitored 74 bpm bpm Respiratory Rate - Anes 18 br/min br/min 04/03/2024 14:39 EDT Systolic Blood Pressure Non-Invasive 107 mmHg mmHg Diastolic Blood Pressure Non-Invasive 64 mmHg mmHg 04/03/2024 14:36 EDT Systolic Blood Pressure Non-Invasive 110 mmHg mmHg Diastolic Blood Pressure Non-Invasive 65 mmHg mmHg 04/03/2024 14:35 EDT Temperature (Route Not Specified) 36.66 DegC DegC Heart Rate Monitored 74 bpm bpm Respiratory Rate - Anes 18 br/min br/min 04/03/2024 14:33 EDT Systolic Blood Pressure Non-Invasive 113 mmHg mmHg Diastolic Blood Pressure Non-Invasive 67 mmHg mmHg 04/03/2024 14:30 EDT Temperature (Route Not Specified) 36.64 DegC DegC Heart Rate Monitored 73 bpm bpm Respiratory Rate - Anes 18 br/min br/min Systolic Blood Pressure Non-Invasive 113 mmHg mmHg Diastolic Blood Pressure Non-Invasive 68 mmHg mmHg 04/03/2024 14:27 EDT Systolic Blood Pressure Non-Invasive 111 mmHg mmHg Diastolic Blood Pressure Non-Invasive 62 mmHg mmHg 04/03/2024 14:25 EDT Temperature (Route Not Specified) 36.64 DegC DegC Heart Rate Monitored 74 bpm bpm Respiratory Rate - Anes 18 br/min br/min 04/03/2024 14:24 EDT Systolic Blood Pressure Non-Invasive 108 mmHg mmHg Diastolic Blood Pressure Non-Invasive 65 mmHg mmHg 04/03/2024 14:21 EDT Systolic Blood Pressure Non-Invasive 106 mmHg mmHg Diastolic Blood Pressure Non-Invasive 62 mmHg mmHg 04/03/2024 14:20 EDT Temperature (Route Not Specified) 36.63 DegC DegC Heart Rate Monitored 74 bpm bpm Respiratory Rate - Anes 18 br/min br/min 04/03/2024 14:18 EDT Systolic Blood Pressure Non-Invasive 105 mmHg mmHg Diastolic Blood Pressure Non-Invasive 62 mmHg mmHg 04/03/2024 14:15 EDT Temperature (Route Not Specified) 36.6 DegC DegC Heart Rate Monitored 71 bpm bpm Respiratory Rate - Anes 18 br/min br/min Systolic Blood Pressure Non-Invasive 115 mmHg mmHg Diastolic Blood Pressure Non-Invasive 66 mmHg mmHg 04/03/2024 14:12 EDT Systolic Blood Pressure Non-Invasive 115 mmHg mmHg Diastolic Blood Pressure Non-Invasive 72 mmHg mmHg 04/03/2024 14:10 EDT Temperature (Route Not Specified) 36.57 DegC DegC Heart Rate Monitored 67 bpm bpm Respiratory Rate - Anes 18 br/min br/min 04/03/2024 14:09 EDT Systolic Blood Pressure Non-Invasive 112 mmHg mmHg Diastolic Blood Pressure Non-Invasive 74 mmHg mmHg 04/03/2024 14:06 EDT Systolic Blood Pressure Non-Invasive 113 mmHg mmHg Diastolic Blood Pressure Non-Invasive 68 mmHg mmHg 04/03/2024 14:05 EDT Temperature (Route Not Specified) 36.52 DegC DegC Heart Rate Monitored 65 bpm bpm Respiratory Rate - Anes 18 br/min br/min 04/03/2024 14:03 EDT Systolic Blood Pressure Non-Invasive 111 mmHg mmHg Diastolic Blood Pressure Non-Invasive 65 mmHg mmHg 04/03/2024 14:00 EDT Temperature (Route Not Specified) 36.49 DegC DegC Heart Rate Monitored 65 bpm bpm Respiratory Rate - Anes 18 br/min br/min Systolic Blood Pressure Non-Invasive 106 mmHg mmHg Diastolic Blood Pressure Non-Invasive 66 mmHg mmHg 04/03/2024 13:57 EDT Systolic Blood Pressure Non-Invasive 112 mmHg mmHg Diastolic Blood Pressure Non-Invasive 70 mmHg mmHg 04/03/2024 13:55 EDT Temperature (Route Not Specified) 36.47 DegC DegC Heart Rate Monitored 66 bpm bpm Respiratory Rate - Anes 18 br/min br/min 04/03/2024 13:54 EDT Systolic Blood Pressure Non-Invasive 110 mmHg mmHg Diastolic Blood Pressure Non-Invasive 65 mmHg mmHg 04/03/2024 13:51 EDT Systolic Blood Pressure Non-Invasive 112 mmHg mmHg Diastolic Blood Pressure Non-Invasive 66 mmHg mmHg 04/03/2024 13:50 EDT Temperature (Route Not Specified) 36.45 DegC DegC Heart Rate Monitored 68 bpm bpm Respiratory Rate - Anes 18 br/min br/min 04/03/2024 13:48 EDT Systolic Blood Pressure Non-Invasive 110 mmHg mmHg Diastolic Blood Pressure Non-Invasive 66 mmHg mmHg 04/03/2024 13:45 EDT Temperature (Route Not Specified) 36.44 DegC DegC Heart Rate Monitored 65 bpm bpm Respiratory Rate - Anes 18 br/min br/min Systolic Blood Pressure Non-Invasive 115 mmHg mmHg Diastolic Blood Pressure Non-Invasive 69 mmHg mmHg 04/03/2024 13:42 EDT Systolic Blood Pressure Non-Invasive 115 mmHg mmHg Diastolic Blood Pressure Non-Invasive 67 mmHg mmHg 04/03/2024 13:40 EDT Temperature (Route Not Specified) 36.45 DegC DegC Heart Rate Monitored 65 bpm bpm Respiratory Rate - Anes 18 br/min br/min 04/03/2024 13:39 EDT Systolic Blood Pressure Non-Invasive 114 mmHg mmHg Diastolic Blood Pressure Non-Invasive 67 mmHg mmHg 04/03/2024 13:36 EDT Systolic Blood Pressure Non-Invasive 109 mmHg mmHg Diastolic Blood Pressure Non-Invasive 66 mmHg mmHg 04/03/2024 13:35 EDT Temperature (Route Not Specified) 36.44 DegC DegC Heart Rate Monitored 67 bpm bpm Respiratory Rate - Anes 18 br/min br/min 04/03/2024 13:33 EDT Systolic Blood Pressure Non-Invasive 114 mmHg mmHg Diastolic Blood Pressure Non-Invasive 68 mmHg mmHg 04/03/2024 13:30 EDT Temperature (Route Not Specified) 36.4 DegC DegC Heart Rate Monitored 69 bpm bpm Respiratory Rate - Anes 18 br/min br/min 04/03/2024 13:29 EDT Systolic Blood Pressure Non-Invasive 114 mmHg mmHg Diastolic Blood Pressure Non-Invasive 72 mmHg mmHg 04/03/2024 13:26 EDT Systolic Blood Pressure Non-Invasive 113 mmHg mmHg Diastolic Blood Pressure Non-Invasive 72 mmHg mmHg 04/03/2024 13:25 EDT Temperature (Route Not Specified) 36.35 DegC DegC Heart Rate Monitored 64 bpm bpm Respiratory Rate - Anes 18 br/min br/min 04/03/2024 13:23 EDT Systolic Blood Pressure Non-Invasive 108 mmHg mmHg Diastolic Blood Pressure Non-Invasive 74 mmHg mmHg 04/03/2024 13:20 EDT Temperature (Route Not Specified) 36.31 DegC DegC Heart Rate Monitored 67 bpm bpm Respiratory Rate - Anes 18 br/min br/min Systolic Blood Pressure Non-Invasive 114 mmHg mmHg Diastolic Blood Pressure Non-Invasive 73 mmHg mmHg 04/03/2024 13:18 EDT Systolic Blood Pressure Non-Invasive 106 mmHg mmHg Diastolic Blood Pressure Non-Invasive 69 mmHg mmHg 04/03/2024 13:15 EDT Temperature (Route Not Specified) 36.26 DegC DegC Heart Rate Monitored 61 bpm bpm Respiratory Rate - Anes 18 br/min br/min Systolic Blood Pressure Non-Invasive 111 mmHg mmHg Diastolic Blood Pressure Non-Invasive 69 mmHg mmHg 04/03/2024 13:11 EDT Systolic Blood Pressure Non-Invasive 120 mmHg mmHg Diastolic Blood Pressure Non-Invasive 72 mmHg mmHg 04/03/2024 13:10 EDT Temperature (Route Not Specified) 36.21 DegC DegC Heart Rate Monitored 64 bpm bpm Respiratory Rate - Anes 18 br/min br/min 04/03/2024 13:09 EDT Systolic Blood Pressure Non-Invasive 109 mmHg mmHg Diastolic Blood Pressure Non-Invasive 68 mmHg mmHg 04/03/2024 13:05 EDT Temperature (Route Not Specified) 36.18 DegC DegC Heart Rate Monitored 63 bpm bpm Respiratory Rate - Anes 18 br/min br/min Systolic Blood Pressure Non-Invasive 121 mmHg mmHg Diastolic Blood Pressure Non-Invasive 69 mmHg mmHg 04/03/2024 13:02 EDT Systolic Blood Pressure Non-Invasive 116 mmHg mmHg Diastolic Blood Pressure Non-Invasive 69 mmHg mmHg 04/03/2024 13:00 EDT Temperature (Route Not Specified) 36.15 DegC DegC Heart Rate Monitored 67 bpm bpm Respiratory Rate - Anes 18 br/min br/min 04/03/2024 12:59 EDT Systolic Blood Pressure Non-Invasive 115 mmHg mmHg Diastolic Blood Pressure Non-Invasive 68 mmHg mmHg 04/03/2024 12:56 EDT Systolic Blood Pressure Non-Invasive 109 mmHg mmHg Diastolic Blood Pressure Non-Invasive 66 mmHg mmHg 04/03/2024 12:55 EDT Temperature (Route Not Specified) 36.1 DegC DegC Heart Rate Monitored 62 bpm bpm Respiratory Rate - Anes 18 br/min br/min 04/03/2024 12:53 EDT Systolic Blood Pressure Non-Invasive 106 mmHg mmHg Diastolic Blood Pressure Non-Invasive 66 mmHg mmHg 04/03/2024 12:50 EDT Temperature (Route Not Specified) 36.03 DegC DegC Heart Rate Monitored 60 bpm bpm Respiratory Rate - Anes 16 br/min br/min Systolic Blood Pressure Non-Invasive 106 mmHg mmHg Diastolic Blood Pressure Non-Invasive 67 mmHg mmHg 04/03/2024 12:47 EDT Systolic Blood Pressure Non-Invasive 112 mmHg mmHg Diastolic Blood Pressure Non-Invasive 70 mmHg mmHg 04/03/2024 12:45 EDT Temperature (Route Not Specified) 35.97 DegC DegC Heart Rate Monitored 58 bpm bpm Respiratory Rate - Anes 16 br/min br/min 04/03/2024 12:44 EDT Systolic Blood Pressure Non-Invasive 119 mmHg mmHg Diastolic Blood Pressure Non-Invasive 66 mmHg mmHg 04/03/2024 12:41 EDT Systolic Blood Pressure Non-Invasive 114 mmHg mmHg Diastolic Blood Pressure Non-Invasive 67 mmHg mmHg 04/03/2024 12:40 EDT Temperature (Route Not Specified) 35.92 DegC DegC Heart Rate Monitored 64 bpm bpm Respiratory Rate - Anes 16 br/min br/min 04/03/2024 12:38 EDT Systolic Blood Pressure Non-Invasive 112 mmHg mmHg Diastolic Blood Pressure Non-Invasive 68 mmHg mmHg 04/03/2024 12:35 EDT Temperature (Route Not Specified) 35.87 DegC DegC Heart Rate Monitored 64 bpm bpm Respiratory Rate - Anes 16 br/min br/min Systolic Blood Pressure Non-Invasive 111 mmHg mmHg Diastolic Blood Pressure Non-Invasive 64 mmHg mmHg 04/03/2024 12:32 EDT Systolic Blood Pressure Non-Invasive 110 mmHg mmHg Diastolic Blood Pressure Non-Invasive 71 mmHg mmHg 04/03/2024 12:30 EDT Temperature (Route Not Specified) 35.82 DegC DegC Heart Rate Monitored 63 bpm bpm Respiratory Rate - Anes 16 br/min br/min 04/03/2024 12:29 EDT Systolic Blood Pressure Non-Invasive 112 mmHg mmHg Diastolic Blood Pressure Non-Invasive 67 mmHg mmHg 04/03/2024 12:26 EDT Systolic Blood Pressure Non-Invasive 120 mmHg mmHg Diastolic Blood Pressure Non-Invasive 73 mmHg mmHg 04/03/2024 12:25 EDT Temperature (Route Not Specified) 35.79 DegC DegC Heart Rate Monitored 65 bpm bpm Respiratory Rate - Anes 16 br/min br/min 04/03/2024 12:24 EDT Systolic Blood Pressure Non-Invasive 132 mmHg mmHg Diastolic Blood Pressure Non-Invasive 82 mmHg mmHg 04/03/2024 12:20 EDT Temperature (Route Not Specified) 35.78 DegC DegC Heart Rate Monitored 69 bpm bpm Respiratory Rate - Anes 16 br/min br/min Systolic Blood Pressure Non-Invasive 114 mmHg mmHg Diastolic Blood Pressure Non-Invasive 73 mmHg mmHg 04/03/2024 12:17 EDT Systolic Blood Pressure Non-Invasive 115 mmHg mmHg Diastolic Blood Pressure Non-Invasive 70 mmHg mmHg 04/03/2024 12:15 EDT Temperature (Route Not Specified) 35.77 DegC DegC Heart Rate Monitored 67 bpm bpm Respiratory Rate - Anes 16 br/min br/min 04/03/2024 12:14 EDT Systolic Blood Pressure Non-Invasive 118 mmHg mmHg Diastolic Blood Pressure Non-Invasive 69 mmHg mmHg 04/03/2024 12:12 EDT Systolic Blood Pressure Non-Invasive 99 mmHg mmHg Diastolic Blood Pressure Non-Invasive 66 mmHg mmHg 04/03/2024 12:10 EDT Temperature (Route Not Specified) 35.75 DegC DegC Heart Rate Monitored 67 bpm bpm Respiratory Rate - Anes 16 br/min br/min 04/03/2024 12:09 EDT Systolic Blood Pressure Non-Invasive 101 mmHg mmHg Diastolic Blood Pressure Non-Invasive 65 mmHg mmHg 04/03/2024 12:06 EDT Systolic Blood Pressure Non-Invasive 103 mmHg mmHg Diastolic Blood Pressure Non-Invasive 63 mmHg mmHg 04/03/2024 12:05 EDT Temperature (Route Not Specified) 35.68 DegC DegC Heart Rate Monitored 70 bpm bpm Respiratory Rate - Anes 16 br/min br/min 04/03/2024 12:03 EDT Systolic Blood Pressure Non-Invasive 101 mmHg mmHg Diastolic Blood Pressure Non-Invasive 68 mmHg mmHg 04/03/2024 12:00 EDT Temperature (Route Not Specified) 35.58 DegC DegC Heart Rate Monitored 76 bpm bpm Respiratory Rate - Anes 14 br/min br/min Systolic Blood Pressure Non-Invasive 90 mmHg mmHg Diastolic Blood Pressure Non-Invasive 74 mmHg mmHg 04/03/2024 11:55 EDT Temperature (Route Not Specified) 35.48 DegC DegC Heart Rate Monitored 80 bpm bpm Respiratory Rate - Anes 14 br/min br/min 04/03/2024 11:54 EDT Systolic Blood Pressure Non-Invasive 86 mmHg mmHg Diastolic Blood Pressure Non-Invasive 66 mmHg mmHg 04/03/2024 11:51 EDT Systolic Blood Pressure Non-Invasive 77 mmHg mmHg Diastolic Blood Pressure Non-Invasive 59 mmHg mmHg 04/03/2024 11:50 EDT Temperature (Route Not Specified) 35.43 DegC DegC Heart Rate Monitored 68 bpm bpm Respiratory Rate - Anes 14 br/min br/min 04/03/2024 11:48 EDT Systolic Blood Pressure Non-Invasive 86 mmHg mmHg Diastolic Blood Pressure Non-Invasive 69 mmHg mmHg 04/03/2024 11:45 EDT Temperature (Route Not Specified) 35.43 DegC DegC Heart Rate Monitored 76 bpm bpm Respiratory Rate - Anes 14 br/min br/min Systolic Blood Pressure Non-Invasive 99 mmHg mmHg Diastolic Blood Pressure Non-Invasive 56 mmHg mmHg 04/03/2024 11:42 EDT Systolic Blood Pressure Non-Invasive 92 mmHg mmHg Diastolic Blood Pressure Non-Invasive 52 mmHg mmHg 04/03/2024 11:40 EDT Temperature (Route Not Specified) 35.48 DegC DegC Heart Rate Monitored 73 bpm bpm Respiratory Rate - Anes 14 br/min br/min 04/03/2024 11:39 EDT Systolic Blood Pressure Non-Invasive 86 mmHg mmHg Diastolic Blood Pressure Non-Invasive 54 mmHg mmHg 04/03/2024 11:36 EDT Systolic Blood Pressure Non-Invasive 91 mmHg mmHg Diastolic Blood Pressure Non-Invasive 46 mmHg mmHg 04/03/2024 11:35 EDT Temperature (Route Not Specified) 35.6 DegC DegC Heart Rate Monitored 74 bpm bpm Respiratory Rate - Anes 14 br/min br/min 04/03/2024 11:33 EDT Systolic Blood Pressure Non-Invasive 93 mmHg mmHg Diastolic Blood Pressure Non-Invasive 54 mmHg mmHg 04/03/2024 11:30 EDT Temperature (Route Not Specified) 35.72 DegC DegC Heart Rate Monitored 73 bpm bpm Respiratory Rate - Anes 10 br/min br/min 04/03/2024 11:29 EDT Systolic Blood Pressure Non-Invasive 92 mmHg mmHg Diastolic Blood Pressure Non-Invasive 52 mmHg mmHg 04/03/2024 11:27 EDT Systolic Blood Pressure Non-Invasive 86 mmHg mmHg Diastolic Blood Pressure Non-Invasive 47 mmHg mmHg 04/03/2024 11:25 EDT Temperature (Route Not Specified) 35.84 DegC DegC Heart Rate Monitored 77 bpm bpm Respiratory Rate - Anes 10 br/min br/min Systolic Blood Pressure Non-Invasive 127 mmHg mmHg Diastolic Blood Pressure Non-Invasive 116 mmHg mmHg 04/03/2024 11:21 EDT Systolic Blood Pressure Non-Invasive 87 mmHg mmHg Diastolic Blood Pressure Non-Invasive 57 mmHg mmHg 04/03/2024 11:20 EDT Heart Rate Monitored 78 bpm bpm Respiratory Rate - Anes 10 br/min br/min 04/03/2024 11:18 EDT Systolic Blood Pressure Non-Invasive 107 mmHg mmHg Diastolic Blood Pressure Non-Invasive 78 mmHg mmHg 04/03/2024 11:15 EDT Heart Rate Monitored 92 bpm bpm Respiratory Rate - Anes 0 br/min br/min Systolic Blood Pressure Non-Invasive 108 mmHg mmHg Diastolic Blood Pressure Non-Invasive 75 mmHg mmHg 04/03/2024 11:12 EDT Systolic Blood Pressure Non-Invasive 126 mmHg mmHg Diastolic Blood Pressure Non-Invasive 77 mmHg mmHg 04/03/2024 11:10 EDT Respiratory Rate - Anes 0 br/min br/min 04/03/2024 10:31 EDT Heart Rate Monitored 70 bpm Systolic Blood Pressure Non-Invasive 114 mmHg Diastolic Blood Pressure Non-Invasive 72 mmHg Mean Arterial Pressure (NBP) 85 mmHg 04/03/2024 10:26 EDT Heart Rate Monitored 85 bpm Systolic Blood Pressure Non-Invasive 112 mmHg Diastolic Blood Pressure Non-Invasive 73 mmHg Mean Arterial Pressure (NBP) 82 mmHg 04/03/2024 10:21 EDT Heart Rate Monitored 77 bpm Systolic Blood Pressure Non-Invasive 136 mmHg Diastolic Blood Pressure Non-Invasive 89 mmHg Mean Arterial Pressure (NBP) 100 mmHg 04/03/2024 10:19 EDT Heart Rate Monitored 79 bpm Systolic Blood Pressure Non-Invasive 135 mmHg Diastolic Blood Pressure Non-Invasive 91 mmHg HI Mean Arterial Pressure (NBP) 101 mmHg 04/03/2024 9:57 EDT Temperature Temporal Artery 36.4 DegC Apical Heart Rate 77 bpm Respiratory Rate 16 br/min Systolic Blood Pressure Non-Invasive 113 mmHg Diastolic Blood Pressure Non-Invasive 77 mmHg . Mental status: at preoperative baseline. Respiratory function: respirations are non-labored, Stable. Respiratory support: none. CV function: Stable. Cardiovascular support: none. Pain: Satisfactory. Nausea status: Satisfactory. Postoperative hydration status: within normal limits. Notes: Patient is sufficiently recovered from anesthesia to participate in the evaluation. No follow-up care needed. No complications post-anesthesia.. Digitally Signed by CE JERONIMO MD on 04/03/2024 06:[id number] Procedure note Date of Service PreOp diagnosis: Pelvic mass PostOp diagnosis: Per Op note Procedure: Robotic Assisted Total Laparoscopic hysterectomy with bilateral salpingo-oophorectomy, Omentectomy, Aortic lymph node dissection, Extensive lysis of adhesions, Bladder peritoneum resection Anesthesia: General Surgeon: Dr. Faulkner Emergency Communications Operator: Dr. Rj Miller EBL: 25 ml IVF: 1500 ml UOP: 600 ml Specimens: Uterus, cervix, bilateral tubes, bilateral ovaries with ovarian masses, Bladder peritoneum, Omentum, Right aortic lymph nodes Complications: None Full operative report to be dictated by Dr. Faulkner Digitally Signed by MANNY CELESTIN MD on 04/03/2024 03:[address] [facility] [id number] Summary of episode note Discharge Instructions Thank you for allowing [facility] to assist you with your healthcare needs. The following is importantdischarge information regarding your hospital visit. 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 Your Diagnosis Post-op pain What to do next Scheduled Follow-Up Appointments Appointment Type When Where Contact Information StatusSO OV Post Op 04/16/2024 03:20 PM EDT [facility] [address] [place] [id number] Confirmed Follow Up Appointments Follow Up with LAYO FAULKNER MD Where:[address] [place] [address] [place] [address]- [phone] Additional Information: Follow-up as scheduled The Following Activity and Diet Have Been Ordered for You Discharge Activity - Ordered -- Sexual [place] Restricted, Follow the post-procedure activity instructions provided by your physician's office.No sexual intercourse x 6 wks, No tub baths x 6 wks. No heavy lifting greater than 10lbs. Don't operate a vehicle while using narco... Discharge Diet - Ordered -- Follow the post-operative/post-procedure diet instructions provided by your physician's office.,04/03/24 15:14:00 EDT The Following Equipment Has Been Ordered for You Discharge Home Equipment Discharge Wound Care - Ordered -- Follow the post-operative/post-procedure wound care instructions provided by your physician's office.Call the office if exp a temp >100.4, increase in pain, increase in bleeding/discharge, or increase in odors, 04/03/24 15:14:00 EDT The Following Treatments Have Been Ordered for You Discharge Labs No qualifying data available. Discharge Radiology No qualifying data available. Other Therapies No qualifying data available. Post Acute Orders No qualifying data available. Someone Will Contact You Regarding These Home Health Referrals No home referrals have been ordered for you. No one will call you. Allergies NKA Medications Please ask your primary doctor or pharmacist before taking any other medication not listed, including over the counter drugs, herbal medications, vitamins and or supplements as they may interact withyour home medications. What How Much When Why Instructions Last Dose New docusate (Colace 100 mg oral capsule) 1 cap by mouth Two (2) times a day as needed for for constipation Duration: [address] [facility] New ibuprofen (ibuprofen 600 mg oral tablet) 1 tab(s) by mouth Every 6 hours Duration: [address] [facility] New oxyCODONE (oxyCODONE 5 mg oral tablet ( IMMEDIATE release )) 1 tab(s) by mouth Every 6 hours as needed for for pain Post-op pain Duration: [address] [facility] Unchanged albuterol (albuterol MDI (90 mcg/ inh) CFC free inhalation aerosol) 1 puff(s) by inhalation Every 4 hours as needed for as needed for wheezing Unchanged clonazePAM (clonazePAM 0.5 mg oral tablet) 0.5 tab(s) by mouth Once a day Unchanged FLUoxetine (FLUoxetine 20 mg oral capsule) 1 cap by mouth Once a day Unchanged multivitamin (Multivitamin) 1 tab(s) by mouth Once a day Unchanged mupirocin topical (mupirocin 2% topical ointment) 1 application Topical Two (2) times a day Bilateral intranasal application twice daily x 5 days pre-surgery &/ or as many days pre-surgery as possible. Pharmacy Information [facility]: [address] [place], [place] [phone] Please take this list to your next doctor s visit. Bring all medications you take, including over the counter medications, herbals and other supplements with you to your doctor s visit. Patients and families are reminded to discard old lists and to update any records with all medication providers or retail pharmacies. Education Materials [facility] SAME DAY SURGERY DISCHARGE INSTRUCTIONS PLEASE FOLLOW THE INSTRUCTIONS BELOW MARKED WITH AN X: __X_Regular Diet: Start with clear liquids, then soup and crackers. Gradually add other foods unless otherwise instructed by your surgeon __X_Drink extra fluids ACTIVTY: __X_Since you have had anesthetic, it would be advisable not to drive, drink alcohol, or make majordecisions over the next 24 hours. You may require more rest tonight and tomorrow __X_Do not drive vehicle while taking narcotics and as directed by your Surgeon ____Restrict activity as follows: _X___Do not have sexual intercourse. Nothing in the vagina-No tampons or Douching ____No heavy lifting, pushing, or straining ____Elevate operative limb ____Ice as directed __X_Follow all written and verbal instructions given to you by your Doctor ____Other: BATHING/SHOWERING ____Sponge bathe until office visit. ____Sitting in tub of warm water may relieve discomfort ____May tub bathe _X___May shower in 24-48 hours with clean linen unless otherwise instructed by your Doctor DRESSING: _X___Keep operative area clean and dry _X___Check the operative area for signs of bleeding. Apply pressure to the bleeding site if necessary. _X___Change drip pad as needed ____Wear scrotal support for comfort WATCH FOR SIGNS OF INFECTION: (Usually appears 36-48 hours after surgery) Increased temperature (101 degrees Fahrenheit or higher) Redness or swelling Increased pain Foul odor or drainage If you have any questions, please call your doctor at the number listed on your follow-up instructions. Total Laparoscopic Hysterectomy, Care After This sheet gives you information about how to care for yourself after your procedure. Your health care provider may also give you more specific instructions. If you have problems or questions, contact your health care provider. What can I expect after the procedure? After the procedure, it is common to have: Pain and bruising around your incisions. A sore throat, if a breathing tube was used during surgery. Fatigue. Poor appetite. Less interest in sex. If your ovaries were also removed, it is also common to have symptoms of menopause such as hot flashes, night sweats, and lack of sleep (insomnia). Follow these instructions at home: Bathing Do not take baths, swim, or use a hot tub until your health care provider approves. You may need toonly take showers for 2 3 weeks. Keep your bandage (dressing) dry until your health care provider says it can be removed. Incision care Follow instructions from your health care provider about how to take care of your incisions. Make sure you: ? Wash your hands with soap and water before you change your dressing. If soap and water are not available, use hand polishing machine operator helper. ? Change your dressing as told by your health care provider. ? Leave stitches (sutures), skin glue, or adhesive strips in place. These skin closures may need to stay in place for 2 weeks or longer. If adhesive strip edges start to loosen and curl up, you may trim the loose edges. Do not remove adhesive strips completely unless your health care provider tells you to do that. Check your incision area every day for signs of infection. Check for: ? Redness, swelling, or pain. ? Fluid or blood. ? Warmth. ? Pus or a bad smell. Activity Get plenty of rest and sleep. Do not lift anything that is heavier than 10 lbs (4.5 kg) for one month after surgery, or as long as told by your health care provider. Do not drive or use heavy machinery while taking prescription pain medicine. Do not drive for 24 hours if you were given a medicine to help you relax (sedative). Return to your normal activities as told by your health care provider. Ask your health care provider what activities are safe for you. Lifestyle Do not use any products that contain nicotine or tobacco, such as cigarettes and e-cigarettes. These can delay healing. If you need help quitting, ask your health care provider. Do not drink alcohol until your health care provider approves. General instructions Do not douche, use tampons, or have sex for at least 6 weeks, or as told by your health care provider. Take pqvl-ljr-hikagyl and prescription medicines only as told by your health care provider. To monitor yourself for a fever, take your temperature at least once a day during recovery. If you struggle with physical or emotional changes after your procedure, speak with your health care provider or a therapist. To prevent or treat constipation while you are taking prescription pain medicine, your health care provider may recommend that you: ? Drink enough fluid to keep your urine clear or pale yellow. ? Take hspl-mbt-tcvduni or prescription medicines. ? Eat foods that are high in fiber, such as fresh fruits and vegetables, whole grains, and beans. ? Limit foods that are high in fat and processed sugars, such as fried and sweet foods. Keep all follow-up visits as told by your health care provider. This is important. Contact a health care provider if: You have chills or a fever. You have redness, swelling, or pain around an incision. You have fluid or blood coming from an incision. Your incision feels warm to the touch. You have pus or a bad smell coming from an incision. An incision breaks open. You feel dizzy or light-headed. You have pain or bleeding when you urinate. You have diarrhea, nausea, or vomiting that does not go away. You have abnormal vaginal discharge. You have a rash. You have pain that does not get better with medicine. Get help right away if: You have a fever and your symptoms suddenly get worse. You have severe abdominal pain. You have chest pain. You have shortness of breath. You faint. You have pain, swelling, or redness on your leg. You have heavy vaginal bleeding with blood clots. Summary After the procedure it is common to have abdominal pain. Your provider will give you medication forthis. Do not take baths, swim, or use a hot tub until your health care provider approves. Do not lift anything that is heavier than 10 lbs (4.5 kg) for one month after surgery, or as long as told by your health care provider. Notify your provider if you have any signs or symptoms of infection after the procedure. This information is not intended to replace advice given to you by your health care provider. Make sure you discuss any questions you have with your health care provider. Document Released: 06/23/2014 Document Revised: 08/15/2018 Document Reviewed: 11/13/2017 Elsevier Patient Education 2020 [employer] Additional Information VACCINATE! IT SAVES LIVES! Members of the community who have not yet received the COVID-19 vaccine and would like to receive it can visit one of [facility] vaccine clinics. There are many vaccine clinic locations within the [facility]. For locations and available times, please visit https://gettheshot.coronavirus.[place].gov/. It is important to note that some COVID mobile vaccine clinics are held outdoors and may be canceled in rainy or stormy conditions. To learn more about pediatric vaccinations (ages 5-11), we invite you to visit the [facility] webpage. [email or web address].[email or web address]/[email or web address]-Owxprtjsci-[email or web address] stions.htmlTo learn more about the COVID-19 vaccine, we invite you to visit the CDC website for a list of frequently asked questions.https://www.cdc.gov/coronavirus/2019-ncov/vaccines/faq.html [facility] Patient Portal Access Instructions: Stay connected with your healthcare team and access your personal medical information anytime with the [facility] [facility] Patient Portal. Please follow the directions below to create your [facility] [facility] account: 1.Access the email account you provided upon registration to the hospital/physician office.2.Look for an invitation email from [facility].3.Open the email and access the invitation link: AcceptInvitation to [facility].4.Fill in the required schneider to create your account. To access your account, visit [email or web address]. Click the blue button labeled Access Patient Portal and then log in with the username and password that you created in the steps above. You will be able to view your test results, lab results, a summary of your visits, upcoming appointments and more. There is also a convenient messaging option where you can send secure messages to your p rovider. In addition, you will have the ability to download any documents or summaries to your computer and/or send the information securely to a physician. Remember that your healthcare information is confidential, so carefully consider who you will allowto register on the [facility] Patient Portal for access to your information. You can also access the [facility] Patient Portal on the [facility] roma. Simply click on Patient Portal and then log into your account. If you would like to receive a full copy of your medical records, please contact the [facility] Medical Records Department by calling [phone], Saturday through Saturday between 8 a.m. and 4:30 p.m. HOW TO SAFELY DISPOSE OF PRESCRIPTION MEDICATIONS Please use one of the following methods to safely dispose of your unused medications. 1.Use a drug disposal kit: the drug disposal pouch allows you to safely discard your old and unuseddrugs. Ask your nurse to give you one when you are discharged.2.Visit a local take-back location: Many local pharmacies and police departments have programs that collect old and unwanted prescriptiondrugs. Call your local pharmacy or go to http://[employer]/1T9Yb4g to find one close to you.3.Make use of household items: Use cat litter or old coffee grounds to dispose medications if other options arenot available. Mix your drugs with these household products, seal them in an airtight container andthrow it into the garbage. Call [facility]: [phone] to be sure your drugs can be disposed of in this way. Some medicines may require a different approach.4.Never flush your medications down the toilet. IF YOU HAVE BEEN PRESCRIBED AN OPIOID FOR PAIN If you have been prescribed an opioid (such as hydrocodone, oxycodone or morphine), it is critical to understand the possible side effects and risks of opioid pain medications. Even when taken as directed, opioids can have several side effects including: Tolerance, meaning you might need to take more of a medication for the same pain relief. Nausea, vomiting and/or constipation. Sleepiness, dizziness, dry mouth, confusion, depression or itching. Physical dependence, meaning you have withdrawal symptoms when a medication is stopped, can develop within a few days. KNOW YOUR RESPONSIBILITIES It is important to know exactly how much and how often to take the opioid pain medications you are prescribed. Never take opioids in higher amounts or more often than prescribed. Do not combine opioids with alcohol or other drugs that cause drowsiness, such as benzodiazepines, also known as benzos, including diazepam and alprazolam, muscle relaxants or sleep aids. Never sell or share prescription opioids. This is illegal. Store opioids in a secure place and out of reach of others (including children, family, friends and visitors). The last page of this document has been signed and retained as a CHART COPY. Signatures Patient Education Materials 1- SDS General Discharge Guidelines (05/31/2023)(CUSTOM) Total Laparoscopic Hysterectomy, Care After Medication Leaflets My discharge plan and instructions have been reviewed and explained to me and I,JESSICA ALARCON understand my current condition and have read and understand these discharge instructions. I have received a written copy of the plan/instructions. If I have questions, I am aware that I should contact my doctor. 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 Procedure note Date of Service PreOp diagnosis: Pelvic mass PostOp diagnosis: Per Op note Procedure: Robotic Assisted Total Laparoscopic hysterectomy with bilateral salpingo-oophorectomy, Omentectomy, Aortic lymph node dissection, Extensive lysis of adhesions, Bladder peritoneum resection Anesthesia: General Surgeon: Dr. Faulkner Emergency Communications Operator: Dr. Rj Miller EBL: 25 ml IVF: 1500 ml UOP: 600 ml Specimens: Uterus, cervix, bilateral tubes, bilateral ovaries with ovarian masses, Bladder peritoneum, Omentum, Right aortic lymph nodes Complications: None Full operative report to be dictated by Dr. Faulkner Digitally Signed by MANNY CELESTIN MD on 04/03/2024 03:[address] [id number] Procedure note Patient: JESSICA ALARCON Age: 43 years Sex: Female : 1980 Associated Diagnoses: None Author: KERRY CORTEZ MD Visit Information Location: Regional Block Area. Reason: Postoperative Pain Management, Surgeon Request. Timing: Preoperative. Start Time: (In Room) Start (1023). Stop Time: (Out of Room) Stop (1028). Time Out Performed: Refer to [place] Time Out Form, Patient was confirmed by two patient identifiers, The procedure and laterality were verified. Monitored During Procedure: BP, Oxygen Saturation, OTHER (Heart Rate). Vitals Signs Assessed Immediately Prior to Regional Placement/Sedation: No Change in Plan. Level of Sedation: Responsive, Sedated. Oxygen Therapy: O2 applied prior to procedure. Procedure Procedure Type: Main Nerve Block QL. Position Type: Left Lateral, Right Lateral. Laterality Bilateral. Needle Type: Echogenic. Size: 21 G. Length: 4. Ultrasound Exam Dynamic Guidance Use Throughout. OTHER (Image saved to patient's chart). Prep Type: Cholorprep, Skin Prep Allowed to Dry. Sterile Barrier Type: Hand Hygiene, Sterile Drape, gloves, mask, and hat. Patient Condition Tolerated Well/No Complications. Note (Vital signs unchanged with injection of local anesthetic, negative aspiration after each 5mL injection, injected slowly without high pressure. See MAR for medications used for nerve block.). Review / Management Vital signs remain stable throughout procedure, see nursing documentation for vital signs Intravenous Medications: Administered: Intravenous Medications - See MAR. Professional Services Provider: Anesthesiologist. Digitally Signed by KERRY CROTEZ MD on 04/03/2024 10:[address] [id number] History and physical note Date of Service April 03, 2024 Chief Complaint 1. 9.8 x 6.9 cm complex right ovarian mass. 2. Family history of BRCA germline mutation. Patient BRCA negative. 3. Asherman's syndrome. 4. Elevated Ca 125, 76 units/mL. 5. Pelvic pain. Planned procedure: 1. Examination under anesthesia. 2. Robotic laparoscopic hysterectomy, right salpingo-oophorectomy, left salpingectomy possible leftoophorectomy, possible surgical staging. History of Present Illness Jessica Alarcon is a 43 y[address] by Dr[address] Caroline Simmons for gynecologic oncology assessment and management of a 9.8 x 6.9 cm complex right ovarian mass and pelvic pain. She has a family history of BRCA germline mutation. Patient has undergone germline testing and and found to be BRCA negative. The patient has a history of Asherman's syndrome. Developed a 3 to 4-month history of intermittent right-sided pelvic pain and occasional bloating. The patient contacted Dr. Simmons about the symptoms. She wasseen and evaluated on March 09, 2024. Pap smear negative for intraepithelial lesion. She also had a transvaginal ultrasound revealing a 9.8 x 6.9 cm complex right ovarian mass. There was no free fluid. There were no nodules in the cul-de-sac or pelvic sidewall. She also had a CA125 of 76, CA 19-9 of23, CEA of 0.5. Her CBC and CMP were normal. She saltation on March 23, 2024. Management options were reviewed in detail with the patient and her at that time. The patient was strongly interested in surgical intervention. Because of her pre-existing uterine pain she wished to have a hysterectomy as a component of her surgery. Removal ofthe left fallopian tube was recommended also at a minimum. The patient was counseled regarding removal or conservation of her left ovary if the right ovarian mass was benign. Her initial opinion was to remove her left ovary. However her consents will be worded as such to have possible conservation of her ovary. The ultimate decision for conservation or removal of her left ovary will be made on the day of surgery. Physical Exam Vitals and Measurements No qualifying data available. 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 No apparent distress. SKIN: No rashes EYES: Sclera nonicteric LYMPHATIC: No supraclavicular lymphadenopathy CARDIAC: Regular rate and rhythm. PULMONARY: Clear to auscultation bilaterally. No wheezes or rales ABDOMEN: Soft, nontender, nondistended, no ascites, no palpable masses. No CVA tenderness. EXTERNAL GENITALIA: Normal without lesions VAGINA: Normal introitus, normal mucosa without bleeding or lesions. No abnormal discharge CERVIX: Normal size,no discharge, no friable areas. Nabothian cysts on palpation. No bleeding to touch. Mobile. UTERUS: Mobile, nontender, normal size. No parametrial nodularity. ADNEXAE: pelvic mass noted on palpation of the posterior fornix with increased tenderness to palpation. No other gross nodularity. EXTREMITIES: No inguinal adenopathy, no edema or calf tenderness. Lab Results Results: Date Result Name Value Ref Range 03/25/2024 12:53 Glucose Level 96 mg/dL (70 - 105) 03/25/2024 12:53 Sodium Level 141 mmol/L (136 - 145) 03/25/2024 12:53 Potassium Level 4.1 mmol/L (3.5 - 5.1) 03/25/2024 12:53 Chloride 103 mmol/L (98 - 107) 03/25/2024 12:53 CO2 28 mmol/L (22 - 29) 03/25/2024 12:53 Electrolyte Balance 10.0 mEq/L (4.0 - 15.0) 03/25/2024 12:53 BUN 22 mg/dL (7 - 18) 03/25/2024 12:53 Creatinine Lvl (s) 0.76 mg/dL (0.55 - 1.02) 03/25/2024 12:53 BUN/Creatinine Ratio 29 ratio (7 - 27) 03/25/2024 12:53 Calcium Lvl 9.3 mg/dL (8.4 - 10.2) 03/25/2024 12:53 Total Protein 6.9 G/dL (6.4 - 8.2) 03/25/2024 12:53 Albumin Level 3.7 G/dL (3.5 - 5.0) 03/25/2024 12:53 Globulin 3.2 G/dL 03/25/2024 12:53 A/G Ratio 1.2 ratio (1.1 - 2.5) 03/25/2024 12:53 Bili Total 0.4 mg/dL (0.2 - 1.0) 03/25/2024 12:53 Alk Phos 78 U/L (40 - 135) 03/25/2024 12:53 AST/SGOT 14 U/L (10 - 40) 03/25/2024 12:53 ALT/SGPT 24 U/L (14 - 59) 03/25/2024 12:53 GFR Non- 83 ml/min/1.73sqm 03/25/2024 12:53 GFR 101 ml/min/1.73sqm 03/25/2024 12:53 CA 125 76.0 U/mL (2.0 - 35.0) 03/25/2024 12:53 CA 19-9 23.2 U/mL (0.0 - 35.0) 03/25/2024 12:53 CEA 0.5 ng/mL (0.0 - 3.0) 03/25/2024 12:53 FSH 3.2 mIU/mL Imaging Results and Diagnostics U/S performed on 03/23/24: Uterus: 9.1 x 5.1 x 5.0 Endometrial stripe: 4.3 mm Right Ovary:9.8 x 6.8 x 6.9 cm Left Ovary: 3.3 x 4.2 x 3.9 cm Uterus: Uterus demonstrates normal myometrial echotexture. Endometrial stripe: Endometrial stripe is within normal limits. Right Ovary: Right ovary associated with 2 sizable complicated cysts with septations and solid components which measure 4.6 x 6.3 x 4.3 cm, and 5.8 x 6.2 x 6.0 cm. Appearance suggests presence of cystadenocarcinoma or dermoid lesions. Left Ovary: Contains a 2.4 cm x 4.2 cm complicated cyst. Free Fluid: No evidence of free fluid. IMPRESSION: 1. Bilateral complicated ovarian cysts. Appearance suggests presence of cystadenocarcinoma or dermoid lesions. Assessment/Plan 1. Pelvic mass 9.8 x 6.9 cm complex right ovarian mass. There is no evidence of carcinomatosis or ascites. The mass reproduces the patient's recent pelvic pain symptoms. Management options were discussed with the patient and her in light of the size of this mass, absence of overt metastatic disease, personal negative germline BRCA status and her history of uterine pain within the setting of Asherman syndrome. Options include unilateral salpingo-oophorectomy with intraoperative frozen section and staging. Ifthis was employed I would recommend removing the contralateral fallopian tube for ovarian/fallopiantube cancer risk reduction. Hysterectomy as a component of surgery was also discussed by either robotic laparoscopic approach or open abdominal hysterectomy technique. The patient is strongly interested in robotic laparoscopic hysterectomy, bilateral salpingo-oophorectomy We discussed option of leaving the left ovary in. Pt will decide the day of surgery whether she wants both ovaries removed 2. Family history of ovarian cancer. Patient's mother was positive for BRCA status post hysterectomy. She was tested and was found to be negative for BRCA gene mutation 3. Elevated CA 125, 76 units/mL. This modest elevation likely correlates with her right ovarian mass. This will be followed if the patient has evidence of an epithelial ovarian cancer or borderline tumor. A detailed informed consent was reviewed and signed with the patient. A copy was given to the patient for her records. I notified Dr. Simmons of today's encounter and the plan for surgery. The patient was seen and examined with Dr. Manny Celestin. Problem List/Past Medical History Ongoing Acute superficial venous thrombosis of lower extremity Anxiety with depression Family history of breast cancer in mother Procedure/Surgical History LEEP: 2008 Colposcopy: 2008 Appendectomy: 2002 Medications Home Medications (4) Active FLUoxetine 40 mg oral capsule 40 mg = 1 cap(s) KlonoPIN 0.5 mg oral tablet 0.5 mg = 1 tab(s), Oral, qDay loratadine 10 mg, Oral, qDay Multivitamin 1 tab(s), Oral, Daily Allergies NKA Social History Alcohol Use: Never., 03/10/2024 Use: Never., 10/13/2020 Nutrition/Health Caffeine intake amount: 1 can/day., 03/10/2024 Caffeine intake amount: 1-2 servings per week., 10/13/2020 Sexual Sexually active: Yes. Current partners: 1. History of sexual abuse: No., 03/10/2024 Substance Abuse Use: Never., 03/10/2024 Use: Never., 10/13/2020 Tobacco Nicotine Use: Never (less than 100 in lifetime)., 03/10/2024 Nicotine Use: Never (less than 100 in lifetime). Exposure to Tobacco Smoke Lives in non-smoking home., 10/13/2020 Family History Alcohol abuse: Maternal Grandfather. Arthritis: Father and Paternal Grandmother. Asthma: Maternal Grandfather. BRCA1 gene mutation detected: Mother. Breast cancer: Maternal Grandmother and Unknown. Depression: Father.Negative: Mother, Sister, Brother, Daughter, Son, Grandparent, Maternal Grandfather, Maternal Grandmother and Paternal Grandmother. Diabetes: Father. Hypertension: Father and Paternal Grandfather. Ovarian cancer: Maternal Grandmother and Unknown. Health Status Family Member(s) Immunizations SARS-CoV-2 (COVID-19) mRNA-1273 vaccine: 0 unknown unit (10/10/20) SARS-CoV-2 (COVID-19) mRNA-1273 vaccine: 0 unknown unit (09/12/20) Code Status No qualifying data available. Digitally Signed by LAYO FAULKNER MD on 03/27/2024 02:[address] [facility] [id number] Evaluation + Plan noteExtracted from: Title:History and Physical Author:LAYO FAULKNER MD Date:03/27/24 1. Pelvic mass 9.8 x 6.9 cm complex right ovarian mass. There is no evidence of carcinomatosis or ascites. The mass reproduces the patient's recent pelvic pain symptoms. Management options were discussed with the patient and her in light of the size of this mass, absence of overt metastatic disease, personal negative germline BRCA status and her history of uterine pain within the setting of Asherman syndrome. Options include unilateral salpingo-oophorectomy with intraoperative frozen section and staging. If this was employed I would recommend removing the contralateral fallopian tube for ovarian/fallopian tube cancer risk reduction. Hysterectomy as a component of surgery was also discussed by either robotic laparoscopic approach or open abdominal hysterectomy technique. The patient is strongly interested in robotic laparoscopic hysterectomy, bilateral salpingo-oophorectomy We discussed option of leaving the left ovary in. Pt will decide the day of surgery whether she wants both ovaries removed 2. Family history of ovarian cancer. Patient's mother was positive for BRCA status post hysterectomy. She was tested and was found to be negative for BRCA gene mutation 3. Elevated CA 125, 76 units/mL. This modest elevation likely correlates with her right ovarian mass. This will be followed if the patient has evidence of an epithelial ovarian cancer or borderline tumor. A detailed informed consent was reviewed and signed with the patient. A copy was given to the patient for her records. I notified Dr. Simmons of today's encounter and the plan for surgery. The patient was seen and examined with Dr. Manny Celestin. Future Appointments Appointment Date:04/16/2024 03:20:00 PM Scheduled Provider: Location:[facility] Appointment Type:SO OV Post Op Future Scheduled Tests Laboratory* [facility] [place] (Blood Specimens) 03/24/24 * [facility] [place] out (Blood Specimens) 03/10/24 Radiology* CT Abd/Pelvis w/ IV Contrast Only 03/24/24 [facility] 07-09-2024 Evaluation + Plan note Future Scheduled Tests Laboratory* [facility] [place] (Blood Specimens) 03/24/24 * [facility] [place] out (Blood Specimens) 03/10/24 Radiology* CT Abd/Pelvis w/ IV Contrast Only 03/24/24 * IR Port Placement 04/10/24 [facility] 06-28-2024 Note Event Code Result HPV Interp See Interp HPVN HPV Interp Text: High Risk HPV Typing: NEGATIVE HPV types 16, 18, 31, 33, 35, 39, 45, 51, 52, 56, 58, 59, 66 and 68 DNA were undetectable or below the pre-set threshold. The linda High-Risk HPV DNA Test is not intended for use as a screening device for Pap normal women under age 30 and is not intended to substitute for regular Pap screening. The linda High-Risk HPV DNA Test is designed to augment existing methods for the detection of cervical disease and should be used in conjunction with clinical information derived from other diagnostic and screening tests, physical examinations and full medical history in accordance with appropriate patient management procedures. NOTE: A negative result does not preclude the presence of HPV infection because results depend on adequate specimen collection, absence of inhibitors and sufficient DNA to be detected. As of: 03/13/24 13:34 [facility] 06-28-2024 Note Event Code Result HPV Interp See Interp HPVN HPV Interp Text: High Risk HPV Typing: NEGATIVE HPV types 16, 18, 31, 33, 35, 39, 45, 51, 52, 56, 58, 59, 66 and 68 DNA were undetectable or below the pre-set threshold. The linda High-Risk HPV DNA Test is not intended for use as a screening device for Pap normal women under age 30 and is not intended to substitute for regular Pap screening. The linda High-Risk HPV DNA Test is designed to augment existing methods for the detection of cervical disease and should be used in conjunction with clinical information derived from other diagnostic and screening tests, physical examinations and full medical history in accordance with appropriate patient management procedures. NOTE: A negative result does not preclude the presence of HPV infection because results depend on adequate specimen collection, absence of inhibitors and sufficient DNA to be detected. As of: 03/13/24 13:34 [facility] 06-28-2024 Note Event Code Result HPV Interp See Interp HPVN HPV Interp Text: High Risk HPV Typing: NEGATIVE HPV types 16, 18, 31, 33, 35, 39, 45, 51, 52, 56, 58, 59, 66 and 68 DNA were undetectable or below the pre-set threshold. The linda High-Risk HPV DNA Test is not intended for use as a screening device for Pap normal women under age 30 and is not intended to substitute for regular Pap screening. The linda High-Risk HPV DNA Test is designed to augment existing methods for the detection of cervical disease and should be used in conjunction with clinical information derived from other diagnostic and screening tests, physical examinations and full medical history in accordance with appropriate patient management procedures. NOTE: A negative result does not preclude the presence of HPV infection because results depend on adequate specimen collection, absence of inhibitors and sufficient DNA to be detected. As of: 03/13/24 13:34 [facility] 06-28-2024 Note Event Code Result HPV Interp See Interp HPVN HPV Interp Text: High Risk HPV Typing: NEGATIVE HPV types 16, 18, 31, 33, 35, 39, 45, 51, 52, 56, 58, 59, 66 and 68 DNA were undetectable or below the pre-set threshold. The linda High-Risk HPV DNA Test is not intended for use as a screening device for Pap normal women under age 30 and is not intended to substitute for regular Pap screening. The linda High-Risk HPV DNA Test is designed to augment existing methods for the detection of cervical disease and should be used in conjunction with clinical information derived from other diagnostic and screening tests, physical examinations and full medical history in accordance with appropriate patient management procedures. NOTE: A negative result does not preclude the presence of HPV infection because results depend on adequate specimen collection, absence of inhibitors and sufficient DNA to be detected. As of: 03/13/24 13:34 [facility] 06-28-2024 Note Event Code Result HPV Interp See Interp HPVN HPV Interp Text: High Risk HPV Typing: NEGATIVE HPV types 16, 18, 31, 33, 35, 39, 45, 51, 52, 56, 58, 59, 66 and 68 DNA were undetectable or below the pre-set threshold. The linda High-Risk HPV DNA Test is not intended for use as a screening device for Pap normal women under age 30 and is not intended to substitute for regular Pap screening. The linda High-Risk HPV DNA Test is designed to augment existing methods for the detection of cervical disease and should be used in conjunction with clinical information derived from other diagnostic and screening tests, physical examinations and full medical history in accordance with appropriate patient management procedures. NOTE: A negative result does not preclude the presence of HPV infection because results depend on adequate specimen collection, absence of inhibitors and sufficient DNA to be detected. As of: 03/13/24 13:34 [facility] 06-28-2024 Note Event Code Result HPV Interp See Interp HPVN HPV Interp Text: High Risk HPV Typing: NEGATIVE HPV types 16, 18, 31, 33, 35, 39, 45, 51, 52, 56, 58, 59, 66 and 68 DNA were undetectable or below the pre-set threshold. The linda High-Risk HPV DNA Test is not intended for use as a screening device for Pap normal women under age 30 and is not intended to substitute for regular Pap screening. The linda High-Risk HPV DNA Test is designed to augment existing methods for the detection of cervical disease and should be used in conjunction with clinical information derived from other diagnostic and screening tests, physical examinations and full medical history in accordance with appropriate patient management procedures. NOTE: A negative result does not preclude the presence of HPV infection because results depend on adequate specimen collection, absence of inhibitors and sufficient DNA to be detected. As of: 03/13/24 13:34 [facility] 06-28-2024 Note Event Code Result HPV Interp See Interp HPVN HPV Interp Text: High Risk HPV Typing: NEGATIVE HPV types 16, 18, 31, 33, 35, 39, 45, 51, 52, 56, 58, 59, 66 and 68 DNA were undetectable or below the pre-set threshold. The linda High-Risk HPV DNA Test is not intended for use as a screening device for Pap normal women under age 30 and is not intended to substitute for regular Pap screening. The linda High-Risk HPV DNA Test is designed to augment existing methods for the detection of cervical disease and should be used in conjunction with clinical information derived from other diagnostic and screening tests, physical examinations and full medical history in accordance with appropriate patient management procedures. NOTE: A negative result does not preclude the presence of HPV infection because results depend on adequate specimen collection, absence of inhibitors and sufficient DNA to be detected. As of: 03/13/24 13:34 [facility] 06-28-2024 Note Event Code Result HPV Interp See Interp HPVN HPV Interp Text: High Risk HPV Typing: NEGATIVE HPV types 16, 18, 31, 33, 35, 39, 45, 51, 52, 56, 58, 59, 66 and 68 DNA were undetectable or below the pre-set threshold. The linda High-Risk HPV DNA Test is not intended for use as a screening device for Pap normal women under age 30 and is not intended to substitute for regular Pap screening. The linda High-Risk HPV DNA Test is designed to augment existing methods for the detection of cervical disease and should be used in conjunction with clinical information derived from other diagnostic and screening tests, physical examinations and full medical history in accordance with appropriate patient management procedures. NOTE: A negative result does not preclude the presence of HPV infection because results depend on adequate specimen collection, absence of inhibitors and sufficient DNA to be detected. As of: 03/13/24 13:34 [facility] 06-25-2024 Evaluation + Plan note Future Scheduled Tests Laboratory* [facility] [place] (Blood Specimens) 03/10/24 [facility] 04-23-2023 Hospital Discharge instructions Patient Education 01/06/2023 03:33:25 Pharyngitis, Report Pending Pharyngitis (Sore Throat), Report Pending Pharyngitis (sore throat) is often due to a virus. It can also be caused by streptococcus (strep), bacteria. This is often called strep throat. Both viral and strep infections can cause throat pain that is worse when swallowing, aching all over, headache, and fever. Both types of infections are contagious. They may be spread by coughing, kissing, or touching others after touching your mouth or nose. A test has been done to find out if you or your child have strep throat. Call this facility or yourhealthcare provider if you were not given your test results. If the test is positive for strep infection, you will need to take antibiotic medicines. A prescription can be called into your pharmacy at that time. If the test is negative, you probably have a viral pharyngitis. This does not need to be treated with antibiotics. Until you receive the results of the strep test, you should stay home from work. If your child is being tested, he or she should stay home from school. Home care Rest at home. Drink plenty of fluids so you won't get dehydrated. If the test is positive for strep, you or your child should not go to work or school for the first 2 days of taking the antibiotics. After this time, you or your child will not be contagious. You or your child can then return to work or school when feeling better. Use the antibiotic medicine for the full 10 days. Do not stop the medicine even if you or your child feel better. This is very important to make sure the infection is fully treated. It is also important to prevent medicine-resistant germs from growing. If you or your child were given an antibiotic shot, no more antibiotics are needed. Use throat lozenges or numbing throat sprays to help reduce pain. Gargling with warm salt water will also help reduce throat pain. Dissolve 1/2 teaspoon of salt in 1 glass of warm water. Children cansip on juice or a popsicle. Children 5 years and older can also suck on a lollipop or hard candy. Don't eat salty or spicy foods or give them to your child. These can irritate the throat. Other medicine for a child: You can give your child acetaminophen for fever, fussiness, or discomfort. In babies over 6 months of age, you may use ibuprofen instead of acetaminophen. If your child has chronic liver or kidney disease or ever had a stomach ulcer or GI bleeding, talk with your child [facility] provider before giving these medicines. Aspirin should never be used by any child under 18 years of age who has a fever. It may cause severe liver damage. Other medicine for an adult: You may use acetaminophen or ibuprofen to control pain or fever, unless another medicine was prescribed for this. If you have chronic liver or kidney disease or ever had a stomach ulcer or GI bleeding, talk with your healthcare provider before using these medicines. Follow-up care Follow up with your healthcare provider or our staff if you or your child don't get better over thenext week. When to seek medical advice Call your healthcare provider right away if any of these occur: Fever as directed by your healthcare provider. For children, seek care if: oYour child is of any age and has repeated fevers above 104 F (40 C). oYour child is younger than 2 years of age and has a fever of 100.4 F (38 C) for more than 1 day. oYour child is 2 years old or older and has a fever of 100.4 F (38 C) for more than 3 days. New or worsening ear pain, sinus pain, or headache Painful lumps in the back of neck Stiff neck Lymph nodes are getting larger Can t swallow liquids, a lot of drooling, or can t open mouth wide due to throat pain Signs of dehydration, such as very dark urine or no urine, sunken eyes, dizziness Trouble breathing or noisy breathing Muffled voice New rash Other symptoms getting worse Prevention Here are steps you can take to help prevent an infection: Keep good hand washing habits. Don t have close contact with people who have sore throats, colds, or other upper respiratory infections. Don t smoke, and stay away from secondhand smoke. Stay up to date with of your vaccines. 3269-7302 [employer]. [address] [place] [address]. All rights reserved. This information is not intended as a substitute for professional medical care. Always follow yourhealthcare professional's instructions. Follow Up Care 01/06/2023 03:14:09 With:DIMA YOUNG Address: [address] [place] [address]- [phone] Business (1) When:2-4 days Comments:Continue Tylenol, ibuprofen, you also may try cough drops with benzocaine or Cetacaine to help numbthe throat. If strep is positive we will notify you, you may then begin antibiotics. Return if worsening or concerning symptoms. [facility] 04-23-2023 Note Discharge Instructions Thank you for allowing [facility] to assist you with your healthcare needs. The following is importantdischarge information regarding your hospital visit. Diagnosis from Today's Visit Pharyngitis What to Do Next Instructions from Your Care Team No qualifying data available. Post Acute Orders No qualifying data available. You Need to Schedule the Following Appointments Follow Up with DIMA YOUNG When Within 2-4 days Why: Continue Tylenol, ibuprofen, you also may try cough drops with benzocaine or Cetacaine to helpnumb the throat. If strep is positive we will notify you, you may then begin antibiotics. Return ifworsening or concerning symptoms. Where: [address] [facility] [place] [address]- [phone] Business (1) Allergies NKA Medications Please ask your primary doctor or pharmacist before taking any other medication not listed, including over the counter drugs, herbal medications, vitamins and or supplements as they may interact withyour home medications. What How Much When Why Instructions Last Dose New amoxicillin (amoxicillin 500 mg oral tablet) 1 tab(s) by mouth Two (2) times a day Duration: 10 Days Printed Prescription Please take this list to your next doctor s visit. Bring all medications you take, including over the counter medications, herbals and other supplements with you to your doctor s visit. Patients and families are reminded to discard old lists and to update any records with all medication providers or retail pharmacies. Education Materials Pharyngitis (Sore Throat), Report Pending Pharyngitis (sore throat) is often due to a virus. It can also be caused by streptococcus (strep), bacteria. This is often called strep throat. Both viral and strep infections can cause throat pain that is worse when swallowing, aching all over, headache, and fever. Both types of infections are contagious. They may be spread by coughing, kissing, or touching others after touching your mouth or nose. A test has been done to find out if you or your child have strep throat. Call this facility or yourhealthcare provider if you were not given your test results. If the test is positive for strep infection, you will need to take antibiotic medicines. A prescription can be called into your pharmacy at that time. If the test is negative, you probably have a viral pharyngitis. This does not need to be treated with antibiotics. Until you receive the results of the strep test, you should stay home from work. If your child is being tested, he or she should stay home from school. Home care Rest at home. Drink plenty of fluids so you won't get dehydrated. If the test is positive for strep, you or your child should not go to work or school for the first 2 days of taking the antibiotics. After this time, you or your child will not be contagious. You or your child can then return to work or school when feeling better. Use the antibiotic medicine for the full 10 days. Do not stop the medicine even if you or your child feel better. This is very important to make sure the infection is fully treated. It is also important to prevent medicine-resistant germs from growing. If you or your child were given an antibiotic shot, no more antibiotics are needed. Use throat lozenges or numbing throat sprays to help reduce pain. Gargling with warm salt water will also help reduce throat pain. Dissolve 1/2 teaspoon of salt in 1 glass of warm water. Children cansip on juice or a popsicle. Children 5 years and older can also suck on a lollipop or hard candy. Don't eat salty or spicy foods or give them to your child. These can irritate the throat. Other medicine for a child: You can give your child acetaminophen for fever, fussiness, or discomfort. In babies over 6 months of age, you may use ibuprofen instead of acetaminophen. If your child has chronic liver or kidney disease or ever had a stomach ulcer or GI bleeding, talk with your [facility] before giving these medicines. Aspirin should never be used by any child under 18 years of age who has a fever. It may cause severe liver damage. Other medicine for an adult: You may use acetaminophen or ibuprofen to control pain or fever, unless another medicine was prescribed for this. If you have chronic liver or kidney disease or ever had a stomach ulcer or GI bleeding, talk with your healthcare provider before using these medicines. Follow-up care Follow up with your healthcare provider or our staff if you or your child don't get better over thenext week. When to seek medical advice Call your healthcare provider right away if any of these occur: Fever as directed by your healthcare provider. For children, seek care if: oYour child is of any age and has repeated fevers above 104 F (40 C). oYour child is younger than 2 years of age and has a fever of 100.4 F (38 C) for more than 1 day. oYour child is 2 years old or older and has a fever of 100.4 F (38 C) for more than 3 days. New or worsening ear pain, sinus pain, or headache Painful lumps in the back of neck Stiff neck Lymph nodes are getting larger Can t swallow liquids, a lot of drooling, or can t open mouth wide due to throat pain Signs of dehydration, such as very dark urine or no urine, sunken eyes, dizziness Trouble breathing or noisy breathing Muffled voice New rash Other symptoms getting worse Prevention Here are steps you can take to help prevent an infection: Keep good hand washing habits. Don t have close contact with people who have sore throats, colds, or other upper respiratory infections. Don t smoke, and stay away from secondhand smoke. Stay up to date with of your vaccines. 3125-7478 [employer]. [address] [place] [address]. All rights reserved. This information is not intended as a substitute for professional medical care. Always follow yourhealthcare professional's instructions. Additional Information VACCINATE! IT SAVES LIVES! Members of the community who have not yet received the COVID-19 vaccine and would like to receive it can visit one of [facility] vaccine clinics. There are many vaccine clinic locations within the [facility]. For locations and available times, please visit www.gettheshot.coronavirus.[place].gov/. It is important to note that some COVID mobile vaccine clinics are held outdoors and may be canceled in rainy or stormy conditions. To learn more about pediatric vaccinations (ages 5-11), we invite you to visit the [facility] webpage. https://www.[facility].org/pages/5445-Tqdxi-Zuymdxjjrtr-Crzxameqlv-Helaq-Rqj stions.htmlTo learn more about the COVID-19 vaccine, we invite you to visit the CDC website for a list of frequently asked questions. https://www.cdc.gov/coronavirus/2019-ncov/vaccines/faq.html [facility] Patient Portal Access Instructions: Stay connected with your healthcare team and access your personal medical information anytime with the [employer] [employer] Patient Portal. If you would like a full copy of your medical records please contact the [facility] Medical Records Department Saturday through Saturday between 8a.m. and 4:30p.m. Please follow the directions below to access the portal: 1.Access the email account you provided upon registration to the [facility].2.Look for an invitation email from [facility].3.Open the email and access the invitation link: Accept Invitation to [facility]4.Fill in the required schneider to create your account. Sign into [email or web address] with your username and password that you created in the above steps to stay up to date. You can then view a summary of results, a summary of your visits, and the ability to download your summaries to your computer or send the information securely to a physician. Remember that your healthcare information is confidential, so carefully consider who you will allow to register on the [facility] [employer] Patient Portal for access to your information. You can also access the [facility] Patient Portal on the play140. Simply click on Health Records under R&L and then click on the [employer] logo. HOW TO SAFELY DISPOSE OF PRESCRIPTION MEDICATIONS Please use one of the following methods to safely dispose of your unused medications. 1.Use a drug disposal kit: the drug disposal pouch allows you to safely discard your old and unuseddrugs. Ask your nurse to give you one when you are discharged.2.Visit a local take-back location: Many local pharmacies and police departments have programs that collect old and unwanted prescriptiondrugs. Call your local pharmacy or go to http://MexxBooks.AllPeers/9N4Dy1q to find one close to you.3.Make use of household items: Use cat litter or old coffee grounds to dispose medications if other options arenot available. Mix your drugs with these household products, seal them in an airtight container andthrow it into the garbage. Call [facility]: [phone] to be sure your drugs can be disposed of in this way. Some medicines may require a different approach.4.Never flush your medications down the toilet. IF YOU HAVE BEEN PRESCRIBED AN OPIOIDS FOR PAIN If you have been prescribed an opioid (such as hydrocodone, oxycodone or morphine), it is critical to understand the possible side effects and risks of opioid pain medications. Even when taken as directed, opioids can have several side effects including: Tolerance, meaning you might need to take more of a medication for the same pain relief. Nausea, vomiting and/or constipation. Sleepiness, dizziness, dry mouth, confusion, depression or itching. Physical dependence, meaning you have withdrawal symptoms when a medication is stopped ? this can develop within a few days. KNOW YOUR RESPONSIBILITIES It is important to know exactly how much and how often to take the opioid pain medications you are prescribed. Never take opioids in higher amounts or more often than prescribed. Do not combine opioids with alcohol or other drugs that cause drowsiness, such as benzodiazepines, also known as benzos,including diazepam and alprazolam, muscle relaxants or sleep aids. Never sell or share prescriptionopioids. This is illegal. Store opioids in a secure place and out of reach of others (including children, family, friends and visitors). The last page(s) of this document has been signed and retained as a CHART COPY Signatures Patient Education Materials Pharyngitis, Report Pending Medication Leaflets My discharge plan and instructions have been reviewed and explained to me and I,JESSICA ALARCON understand my current condition and have read and understand these discharge instructions. I have received a written copy of the plan/instructions. If I have questions, I am aware that I should contact my doctor. 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 Signature: Date/Time: Relationship to Patient: Witness Name/Signature: Date/Time: [facility] note Author Gideon Marcano [facility] Note Date/Time April 14, 2025 12:0 0pm [facility] Medical Records Department [address] [place] [address] Anesthesia Postop Eval I 04/14/25 1159 MR#: [id number] Acct: [id number] Name: JESSICA ALARCON Rep #:[id number] : 1980 44 From: Gideon WALDROP PCP: LASKHMI DanielC Status:REG S DC Y Race: C Location: [place] [address] Anesthesia: Postop Eval I Current Vital Signs Temperature: 97.9 F Pulse Rate: 107 Blood Pressure: 152/75 Respiratory Rate: 16 Pulse Ox: 98 Assessment Airway patent: Yes Spontaneous unlabored respirations: Yes nausea: No Vomiting: No Anesthesia Complication: No Fluid Hydration Crystalloid volume administer (ml): 600 Total IV fluid infused: 600 Progress Note Anesthesia document: Postop Eval 1 completed: Yes 04/14/25 1200 <Electronically signed by Gideon Marcano CRNA> Date _ Gideon Marcano CRNA Cosigner Signature: Date CC: ~ Signed [facility] Work Phone: Discharge summary Author Pradeep Chandler [facility] Note Date/Time April 14, 2025 11:3 5am [facility] Medical Records Department [address] [place] [address] Instructions for Home/Discharge Instructions 04/14/25 1134 MR#: [id number] Acct: [id number] Name: DAVIDEKEANUJESSICA Rich Rep #:[id number] : 1980 44 From: Pradeep Chandler MD PCP: DIANNE Daniel Status:REG S DC Discharge Instructions Diet Discharge Diet: No restrictions Activity Discharge Activity: Return to Normal Activity Ice area for (Minutes): 10 Lifting Restrictions: no pushing pulling or lifting Keep extremity elevated above heart level: Operative Extremity Additional Activity Instructions:: wear wrist braces for 2 weeks post op Dressing / Incision Call your doctor if your incision/area has: Continuous Slow Oozing, Sudden Increased Bleeding, Increased Pain/ Swelling, Increased Redness, Foul Smelling Discharge and Swelling at the incision site Call your doctor if you observe: Fever of 101 or Higher, Coldness, Increased Pain and Numbness or Tingling Change Dressing in: leave in place till F/U Cleanse incision/area with: Do not get Incision Wet Follow Up Care Please Follow Up With: Pradeep Chandler MD When: 2 days or within 2 weeks Test Results: Test results from this visit will be discussed in further detail at your follow- up appointment, if applicable. Discharge Plan Admission Attending Provider: Pradeep Chandler Primary Care Provider: Adan Garcia NP Instructions Patient Instructions: Carpal Tunnel Release Surgery Print Language: Ukrainian Discharge Orders/Prescriptions Prescriptions: No Action albuterol sulfate 90 mcg/actuation HFA aerosol inhaler 1 inh inhalation Q4H PRN (Reason: shortness of breath or wheezing) fluoxetine 20 mg tablet 40 mg PO DAILY clonazepam 0.5 mg tablet 0.5 mg PO DAILY PRN (Reason: anxiety) loperamide 2 mg capsule 2 mg PO Q6H PRN (Reason: diarrhea) omeprazole 20 mg tablet,delayed release (DR/EC) 20 mg PO QDAY lidocaine-prilocaine 2.5-2.5 % cream 1 applic topical ONCE PRN (Reason: PORT ACCESS) 30 Days Qty: 30 2RF loratadine [Claritin] 10 mg tablet 10 mg PO DAILY calcium carbonate-vitamin D3 200 mg (500 mg) -400 unit tablet 2 tab PO QHS letrozole [Femara] 2.5 mg tablet 2.5 mg PO QHS ondansetron 8 mg tablet,disintegrating 8 mg PO Q8H PRN (Reason: nausea and vomiting) Qty: 30 2RF Referrals / Follow Up: Pradeep Chandler MD [Med Staff - Active Staff] - Adan Garcia NP, PEN TESTER-C [Primary Care Provider] - Disposition Disposition (needs filled in before D/C Order can be placed): Home, Self Care 04/14/25 4655<Electronically signed by Pradeep Chandler MD>Pradeep Chandler MD CC: PEN TESTER-C Adan Garcia ~ Signed [facility] Work Phone: Evaluation + Plan note No data available for this section [facility] Evaluation + Plan note Future Appointments Appointment Date:03/16/2024 05:00:00 PM Scheduled Provider: Location:[facility] Appointment Type:US Pelvis Non-OB W/Transvaginal Future Scheduled Tests Laboratory* [facility] Lab Send out (Blood Specimens) 03/10/24 Radiology* US Pelvis Non-OB W/Transvaginal 03/16/24 [facility] Evaluation + Plan note Future Appointments Appointment Date:03/26/2024 08:40:00 AM Scheduled Provider: Location:[facility] Appointment Type:SO PEN TESTER Consult Diagnostic Tests Pending * Miscellaneous LC Test 03/25/24 Future Scheduled Tests Laboratory* [facility] Lab Send out (Blood Specimens) 03/24/24 * [facility] Lab Send out (Blood Specimens) 03/10/24 Radiology* CT Abd/Pelvis w/ IV Contrast Only 03/24/24 [facility] aluation + Plan note Future Appointments Appointment Date:04/16/2024 03:20:00 PM Scheduled Provider: Location:[facility] Appointment Type:SO OV Post Op Future Scheduled Tests Laboratory* [facility] Lab Send out (Blood Specimens) 03/24/24 * [facility] Lab Send out (Blood Specimens) 03/10/24 Radiology* CT Abd/Pelvis w/ IV Contrast Only 03/24/24 [facility] Evaluation + Plan note Future Appointments Appointment Date:04/10/2024 09:40:00 AM Scheduled Provider: Location:[facility] Appointment Type:SO OV Post Op Future Scheduled Tests Laboratory* [facility]ISC Lab Send out (Blood Specimens) 03/24/24 * [facility]ISC Lab Send out (Blood Specimens) 03/10/24 Radiology* CT Abd/Pelvis w/ IV Contrast Only 03/24/24 [facility] Evaluation + Plan note Future Appointments Appointment Date:05/11/2024 12:00:00 PM Scheduled Provider: Location:INF Appointment Type:INF/OSP Labwork Appointment Date:05/13/2024 07:45:00 AM Scheduled Provider: Location:INF Appointment Type:INF/OSP Labwork Appointment Date:05/13/2024 08:20:00 AM Scheduled Provider:PETER FERRIS Location:[facility] Appointment Type:SO OV Chemo Appointment Date:05/13/2024 09:00:00 AM Scheduled Provider: Location:INF Appointment Type:INF Chemo: Infusion 240 min (4 hours) Appointment Date:06/01/2024 12:00:00 PM Scheduled Provider: Location:INF Appointment Type:INF/OSP Labwork Appointment Date:06/03/2024 08:30:00 AM Scheduled Provider: Location:INF Appointment Type:INF/OSP Labwork Appointment Date:06/03/2024 09:00:00 AM Scheduled Provider:PETER FERRIS Location:[facility] Appointment Type:SO OV Chemo Appointment Date:06/03/2024 09:30:00 AM Scheduled Provider: Location:INF Appointment Type:INF Chemo: Infusion 240 min (4 hours) Future Scheduled Tests Laboratory* MISC Lab Send out (Blood Specimens) 03/24/24 * MISC Lab Send out (Blood Specimens) 03/10/24 Radiology* CT Abd/Pelvis w/ IV Contrast Only 03/24/24 [facility] Evaluation + Plan note Future Appointments Appointment Date:05/13/2024 07:45:00 AM Scheduled Provider: Location:INF Appointment Type:INF/OSP Labwork Appointment Date:05/13/2024 08:20:00 AM Scheduled Provider:PETER FERRIS Location:[facility] Appointment Type:SO OV Chemo Appointment Date:05/13/2024 09:00:00 AM Scheduled Provider: Location:INF Appointment Type:INF Chemo: Infusion 240 min (4 hours) Appointment Date:06/01/2024 12:00:00 PM Scheduled Provider: Location:INF Appointment Type:INF/OSP Labwork Appointment Date:06/03/2024 08:30:00 AM Scheduled Provider: Location:INF Appointment Type:INF/OSP Labwork Appointment Date:06/03/2024 09:00:00 AM Scheduled Provider:PETER FERRIS Location:[facility] Appointment Type:SO OV Chemo Appointment Date:06/03/2024 09:30:00 AM Scheduled Provider: Location:INF Appointment Type:INF Chemo: Infusion 240 min (4 hours) Future Scheduled Tests Laboratory* [facility]ISC Lab Send out (Blood Specimens) 03/24/24 * [facility]ISC Lab Send out (Blood Specimens) 03/10/24 Radiology* CT Abd/Pelvis w/ IV Contrast Only 03/24/24 [facility] Evaluation + Plan note Future Appointments Appointment Date:05/15/2024 09:30:00 AM Scheduled Provider: Location:[facility] Appointment Type:CT Chest w/ Contrast Appointment Date:06/01/2024 12:00:00 PM Scheduled Provider: Location:INF Appointment Type:INF/OSP Labwork Appointment Date:06/03/2024 08:30:00 AM Scheduled Provider: Location:INF Appointment Type:INF/OSP Labwork Appointment Date:06/03/2024 09:00:00 AM Scheduled Provider:PETER FERRIS Location:[facility] Appointment Type:SO OV Chemo Appointment Date:06/03/2024 09:30:00 AM Scheduled Provider: Location:INF Appointment Type:INF Chemo: Infusion 240 min (4 hours) Future Scheduled Tests Laboratory* [facility]ISC Lab Send out (Blood Specimens) 03/24/24 * [facility]ISC Lab Send out (Blood Specimens) 03/10/24 Radiology* CT Thorax w/ Contrast 05/15/24 * CT Abd/Pelvis w/ IV Contrast Only 03/24/24 [facility] Hospital Discharge instructions No data available for this section [facility] Progress note No data available for this section [facility] Progress note Author Coco Lima [facility] Note Date/Time February 16, 2025 4:21p m [facility] [address] [place] [address] [place] [address] OFFICE VISIT Date of Service: 02/16/25 1604 MR#: [id number] Acct: [id number] Name: JESSICA ALARCON #: [id number] : 1980 From: Coco correa MD Age/Sex: 44/F Location[place] [facility] Status: Signed HPI Subjective Date of Service 02/16/25 Chief Complaint Ovarian cancer on treatment History of Present Illness 43-year-old female who was diagnosed with Asherman's syndrome for several years and in 2023 experienced increasing abdominal and pelvic pain and a CT scan of the abdomen and pelvis revealed a pelvic mass and an elevated CA125 of 76. February 2024 she had genetic testing ([employer]) that showed no known pathogenic variants. 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 March 2024 next generation sequence, tissue: No potentially actionable pathogenicvariants, tumor mutational burden was low (3.2M/MB) April 22, 2024 received 1 cycle of carboplatin Taxol but developed an anaphylactic reaction to Taxol. May 13, 2024 received the second cycle with carboplatin and Taxotere replace Taxol. This was complicated with excessive GI toxicity requiring hospitalization May 19-2023, she was neutropenic but not febrile. CA-125 05/11/24 446 04/20/24 181 03/25/24 76 June 04, 2024 transferred her care to [facility] and resumed carboplatin and Taxotere with maximum supportive care. August 05, 2024 left pleural thoracocentesis at [place] 1100 cc negative for malignancy. August 26, 2024 recurrent left pleural effusion thoracocentesis: Negative for malignancy September 01, 2024 CT chest abdomen and pelvis: FINDINGS: CHEST A right-sided shannan catheter seen with the tip in the superior vena cava. Stable moderate-sized left pleural effusion with left basilar compressive atelectasis and/or infiltrate. Small amount of fluid is seen in the left major fissure. The right lung is clear. There is no demonstrated pleural abnormality. Normal heart and pericardium. Normal mediastinum. Normal hilar regions. Normal unenhanced pulmonary arteries. Normal aorta arch and descending thoracic aorta. Normal osseous structures. ABDOMEN There is decreased attenuation of the liver consistent with steatosis. Small amount of perihepatic fluid. Small amount of fluid in the : Gutters bilaterally. Normal gallbladder and extrahepatic biliary system. Normal spleen. Normal pancreas. Normal bilateral adrenal glands. Normal right kidney. Normal left kidney. Normal visualized stomach. Normal small intestine. There are scattered colonic diverticula consistent with diverticulosis. The appendix is visualized and appears normal. Normal abdominal aorta. Normal inferior vena cava. Normal retroperitoneum. Normal abdominal wall. Normal osseous structures. PELVIS Normal urinary bladder. Pelvic ascites. Status post hysterectomy. There is no pelvic lymphadenopathy or mass lesion. Normal visualized pelvic arteries. IMPRESSION: Ascites. Diffuse fatty infiltration of the liver. Moderate size left pleural effusion with left basilar atelectasis. December 02, 2024 CT chest abdomen and pelvis: IMPRESSION: Interval resolution of the left pleural effusion. Fatty infiltration of the liver. No acute abnormality is seen. 05/14/2025 CT chest abdomen and pelvis: IMPRESSION: Stable examination. Treatment summary and response: * March 2024 laparoscopic hysterectomy, BSO, omentectomy and staging. 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 carcinomatosis Ovarian cancer Acute superficial venous thrombosis of lower extremity Anxiety and depression Carcinoma of ovary, stage 3 Surgical History History of appendectomy History of colposcopy H/O LEEP History of hysterectomy Family History Aunt Breast cancer Cancer Father's side Aunt Breast cancer Great aunt Social History Smoking Status: Never smoker alcohol intake: current alcohol intake frequency: holidays/special occasions only substance use type: does not use ROS Constitutional Constitutional: Reports systems reviewed and no addt'l complaints, except as documented Eyes Eyes: Reports systems reviewed and no addt'l complaints, except as documented ENT HEENT: Reports systems reviewed and no addt'l complaints, except as documented Cardiovascular Cardiovascular: Reports systems reviewed and no addt'l complaints, except as documented Respiratory/Chest Respiratory/Chest: Reports systems reviewed and no addt'l complaints, except as documented Gastrointestinal Gastrointestinal: Reports systems reviewed and no addt'l complaints, except as documented and nausea; Denies dyspepsia, dysphagia or heartburn Genitourinary Genitourinary: Reports systems reviewed and no addt'l complaints, except as documented Musculoskeletal Musculoskeletal: Reports systems reviewed and no addt'l complaints, except as documented Integumentary Integumentary: Reports systems reviewed and no addt'l complaints, except as documented Neurologic Neurologic: Reports systems reviewed and no addt'l complaints, except as documented Psychiatric Psychiatric: Reports systems reviewed and no addt'l complaints, except as documented and anxiety Endocrine Endocrinology: Reports systems reviewed and no addt'l complaints, except as documented, flushing and heat intolerance Hematologic/Lymphatic Hematologic/Lymphatic: Reports systems reviewed and no addt'l complaints, exceptas documented Allergic/Immunologic Allergic/Immunologic: Reports systems reviewed and no addt'l complaints, except as documented Intake Vital Signs 12/09/24 13:38 01/18/25 08:23 02/16/25 16:05 Height 5 ft 6 in 5 ft 6 in 5 ft 6 in Weight: 126.666 kg BMI 45.1 BP 114/79 Blood Pressure Location Rt brachial Position Sitting Respiration 18 Pulse 82 Pulse Source Monitor Temp 97.8 F Temperature Source Temporal Artery Pulse Oximetry (%) 93 Oxygen Delivery Method room air Intake Is patient in pain?: Yes (stomach pain) Allergies paclitaxel (From Taxol) Allergy (Severe, Verified 02/16/25 16:06) Anaphylaxis Medications ?Medication ?Instructions ?Recorded ?Confirmed ?Type MAGIC MOUTH WASH (BMX) 180 mL ml PO #180 mL 05/14/24 0 02/16/25 History suspension albuterol sulfate 90 mcg/actuation 1 inh inhalation ON CE 05/14/24 02/16/25 History aerosol inhaler loratadine 10 mg tablet (Claritin) 10 mg PO DAILY 04/1702/16/25 History dicyclomine 20 mg tablet 20 mg PO .QID PRN 06/04/24 0 02/16/25 History loperamide 2 mg capsule 2 mg PO Q6H PRN 06/04/2412/08 History omeprazole 20 mg tablet,delayed 20 mg PO QDAY 06/04/24 02/16/25 History release prochlorperazine maleate 10 mg 10 mg PO Q6H PRN nausea and 06/04/24 02/16/25 Rx tablet vomiting #30 tabs dexamethasone 4 mg tablet 8 mg (2 x 4 mg) PO .COMPLEX #12 06/17/24 02/16/25 Rx tabs lidocaine-prilocaine 2.5 %-2.5 % 1 applic topical ONCE PRN PORT 06/17/24 02/16/25 Rx topical cream ACCESS 30 days #30 grams nystatin 100,000 unit/mL oral 5 ml PO Q6H PRN #473 mL 07/15/24 02/16/25 Rx suspension nystatin 100,000 unit/gram topical 1 applic topical BI D #30 grams 07/21/24 02/16/25 Rx cream ondansetron 8 mg disintegrating 8 mg PO Q8H PRN nausea and 08/12/24 02/16/25 Rx tablet vomiting #30 tabs letrozole 2.5 mg tablet (Femara) 2.5 mg PO QDAY 30 day s #30 tabs 09/02/24 02/16/25 Rx clonazepam 0.5 mg tablet 0.5 mg PO DAILY PRN 12/09/24 02/16/25 History fluoxetine 20 mg tablet 40 mg PO DAILY 12/09/2412/08 History Laboratory Tests 06/04/24 06/25/24 07/15/24 08:18 08:10 09:18 CA 125 Antigen 369.0 H 360.0 H 375.0 H 08/11/24 09/02/24 10/08/24 09:53 09:34 08:45 CA 125 Antigen 483.0 H 753.0 H 295.0 H 12/02/24 02/11/25 07:42 09:05 CA 125 Antigen 16.2 15.4 Exam Physical Exam Narrative ECOG 0 Const alert, oriented x3 and no apparent distress Nutritional Appearance: obese Coding Level of Care Code Off vis,est,level 3 Exam Problem Focused Diagnoses Malignant neoplasm of both ovaries C56.3 Laterality: bilateral Peritoneal carcinomatosis C78.6 Assessment and Plan Assessment and Plan (1) Ovarian cancer: Status: Chronic Qualifiers: Laterality: bilateral Qualified Code(s): C56.3 - Malignant neoplasm of bilateral ovaries (2) Peritoneal carcinomatosis: Status: Chronic Plan 44-year-old female with 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 Initial care was at [facility], transferred care to [facility] May 2024 and resumed systemic therapy with carboplatin and Taxotere with maximal support. Since then she has tolerated treatment with no grade 3 or 4 toxicities. An indeterminate liver lesion thought to be a hemangioma was noted on initial imaging. Recurrent pleural effusion July - August 2022 status post thoracocentesis x 2 and on both occasions pleural cytology was negative for malignancy. Could be due to Taxotere induced fluid retention keeping in mind that her steroid primedication had to be attenuated due to impaired glucose tolerance. There hasbeen no recurrence of pleural effusion after conclusion of systemic chemotherapy. Imaging by CT scan November and again January 2025 shows no residual measurable diseaseand her CA125 is down to within normal range. Genetic testing showed no known deleterious mutation and next generation sequence on tissue showed no cdl a driver mutations with a low tumor mutational burden. Recommendation: Based on NCCN guidelines and up-to-date review of management of low-grade serous carcinoma of the ovary: 1. She concluded postoperative adjuvant systemic therapy with [place] taxane for 6 cycles and started maintenance hormonal therapy with letrozole August 2024. Continue letrozole maintenance 2. Follow-up with imaging by CT scan and tumor marker in 3 months. 3. Supplement diet with vitamin D and calcium and request bone density study. Patient was seen with her family impression and recommendations discussed. Coco Lima MD Counter Top Maker, [facility] Divisions of Medical Oncology & Hematology Department of Internal Medicine [place] [id number] This note was generated using a voice recognition system software. Although itwas reviewed by the author prior to finalization, it may still contain incorrectwords, spelling, and punctuation that were not noted when reviewing prior to saving. If a clinically significant typo or inaccurately typed phrase is noted, please notify the author. 02/16/25 0091 <Electronically signed by Coco dai MD> Date _ Coco Lima MD Cosign Signature: Date (if applicable) CC: PEN TESTER-C Adan Garcia ~ [facility] Work Phone: Reason for referral (narrative)No reason for referral information availableWMarietta Memorial Hospital Work Phone: Summary note* JODIE Oden: PERFORM Event Display: Patient Summary Documents Authored Date: [id number] [facility] Summary Purpose Family History Relationship Condition Age at Onset Recorded Date/T lizeth aunt Malignant neoplasm of breast Unknown Malignant neoplasm Unknown No Family History Records Found Advance Directives No Advanced Directives Records Found Advance Directive Response Recorded Date/ Time Advance Directives on File No Novem 2023 4:45pm Living Will Yes August 12 4:45pm Do you have a Healthcare Pow er of National Account Director? Yes August 12, 2024 4:45pm Name of Medical Power of National Account Director Nikolay Diazt - August 12, 2024 4:45pm Advance Directives Yes July 4:45pm Advance Directive Response Recorded Date/ Time Do you have a Healthcare Pow er of National Account Director? Yes April 06, 2025 11:28am Advance Directives on File No Novem 2023 4:45pm Living Will Yes August 12 4:45pm Do you have a Healthcare Pow er of National Account Director? Yes August 12, 2024 4:45pm Name of Medical Power of National Account Director Nikolay Diazt - August 12, 2024 4:45pm Advance Directives Yes July 4:45pm Chief Complaint and Reason for Visit Chief Complaint Admit Date ACUTE - LABS? August 25, 2024 2:19pm E-ORDER CHEST XRAY, August 25, 2024 4:00pm LT SIDE PLEURAL EFFUSION, COUGH August 26, 2024 1:03pm LT SIDE PLEURAL EFFUSION, COUGH August 26, 2024 1:48pm F/U METS OVARIAN CA *COMPARE TO [facility]ES 2023* September 01, 2024 6:50am 3 WKS - LABS - CARBO/TAXOTERE?? 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, 2024 2:19pm Ovarian cancer August 25, 2024 2:19pm Peritoneal carcinomatosis August 25, 2024 2:19pm Cough August 25, 2024 2:19pm Pleural effusion August 25, 2024 2:19pm Swelling of both lower extremities Decem 2023 2:19pm Pleural effusion August 26, 2024 1:03pm Ovarian cancer September 02, 2024 9:16am Peritoneal carcinomatosis September 02, 2024 9:16am Pleural effusion September 02, 2024 9:16am Swelling of both lower extremities Decem 2023 9:16am Ovarian cancer 2024 2 :40pm Peritoneal carcinomatosis 2024 2:40pm Bilateral carpal tunnel syndrome [id number] 1:00pm Ovarian cancer December 09, 2024 1:3 2pm Peritoneal carcinomatosis December 09 1:32pm Chief Complaint Admit Date OVARIAN CANCER F/U December 02, 2024 7:4 7am 8 WKS - LABS/SCANS 1 WK PRIOR - REVIEW S CANS December 09, 2024 1:32pm SINUSITIS December 31, 2024 4:5 7pm BILATERAL HANDS January 18, 2025 8:21am BL HANDS January 25, 2025 2:23p m fulphila February 04, 2025 2:00p m OVARIAN CANCER February 11, 2025 8:32a m 3 MO - LABS/CT 1 WK PRIOR - REVIEW SCANS February 16, 2025 3:52pm BUE; Carpal tunnel syndrome, bilateral u pper l February 17, 2025 10:23am BUE; Carpal tunnel syndrome, bilateral u pper l February 17, 2025 12:30pm Reason for Visit Admit Date Ovarian cancer December 09, 2024 1:3 2pm Peritoneal carcinomatosis December 09 1:32pm Bilateral carpal tunnel syndrome January 8:21am Bilateral carpal tunnel syndrome January 2:23pm Ovarian cancer February 16, 2025 3:52p m Peritoneal carcinomatosis February 16, 2025 3:52pm Chief Complaint Admit Date BL HANDS October 19, 2024 1 :00pm OVARIAN CANCER F/U December 02, 2024 7:4 7am 8 WKS - LABS/SCANS 1 WK PRIOR - REVIEW S CANS December 09, 2024 1:32pm SINUSITIS December 31, 2024 4:5 7pm BILATERAL HANDS January 18, 2025 8:21am BL HANDS January 25, 2025 2:23p m fulphila February 04, 2025 2:00p m OVARIAN CANCER February 11, 2025 8:32a m 3 MO - LABS/CT 1 WK PRIOR - REVIEW SCANS February 16, 2025 3:52pm Reason for Visit Admit Date Bilateral carpal tunnel syndrome 2024 1:00pm Ovarian cancer December 09, 2024 1:3 2pm Peritoneal carcinomatosis December 09 1:32pm Bilateral carpal tunnel syndrome January 8:21am Bilateral carpal tunnel syndrome January 2:23pm Ovarian cancer February 16, 2025 3:52p m Peritoneal carcinomatosis February 16, 2025 3:52pm Chief Complaint Admit Date OVARIAN CANCER F/U December 02, 2024 7:4 7am 8 WKS - LABS/SCANS 1 WK PRIOR - REVIEW S CANS December 09, 2024 1:32pm SINUSITIS December 31, 2024 4:5 7pm BILATERAL HANDS January 18, 2025 8:21am BL HANDS January 25, 2025 2:23p m fulphila February 04, 2025 2:00p m OVARIAN CANCER February 11, 2025 8:32a m 3 MO - LABS/CT 1 WK PRIOR - REVIEW SCANS February 16, 2025 3:52pm BUE; Carpal tunnel syndrome, bilateral u pper l February 17, 2025 10:23am BUE; Carpal tunnel syndrome, bilateral u pper l February 17, 2025 12:30pm SCREENING March 02, 2025 1:17 pm Chief Complaint Admit Date OVARIAN CANCER F/U December 02, 2024 7:4 7am 8 WKS - LABS/SCANS 1 WK PRIOR - REVIEW S CANS December 09, 2024 1:32pm SINUSITIS December 31, 2024 4:5 7pm BILATERAL HANDS January 18, 2025 8:21am BL HANDS January 25, 2025 2:23p m fulphila February 04, 2025 2:00p m OVARIAN CANCER February 11, 2025 8:32a m 3 MO - LABS/CT 1 WK PRIOR - REVIEW SCANS February 16, 2025 3:52pm BUE; Carpal tunnel syndrome, bilateral u pper l February 17, 2025 10:23am BUE; Carpal tunnel syndrome, bilateral u pper l February 17, 2025 12:30pm SCREENING March 02, 2025 1:17 pm bilateral wrist March 29, 2025 10:5 5am Reason for Visit Admit Date Ovarian cancer December 09, 2024 1:3 2pm Peritoneal carcinomatosis December 09 1:32pm Bilateral carpal tunnel syndrome January 8:21am Bilateral carpal tunnel syndrome January 2:23pm Ovarian cancer February 16, 2025 3:52p m Peritoneal carcinomatosis February 16, 2025 3:52pm Bilateral carpal tunnel syndrome March [id number] 10:55am Chief Complaint Admit Date SINUSITIS December 31, 2024 4:5 7pm BILATERAL HANDS January 18, 2025 8:21am BL HANDS January 25, 2025 2:23p m fulphila February 04, 2025 2:00p m OVARIAN CANCER February 11, 2025 8:32a m 3 MO - LABS/CT 1 WK PRIOR - REVIEW SCANS February 16, 2025 3:52pm BUE; Carpal tunnel syndrome, bilateral u pper l February 17, 2025 10:23am BUE; Carpal tunnel syndrome, bilateral u pper l February 17, 2025 12:30pm SCREENING March 02, 2025 1:17 pm bilateral wrist March 29, 2025 10:5 5am Bilateral Endoscopic Carpal Tunnel Relea se April 14, 2025 9:14am Bilateral Endoscopic Carpal Tunnel Relea se April 14, 2025 10:28am Reason for Visit Admit Date Bilateral carpal tunnel syndrome January 8:21am Bilateral carpal tunnel syndrome January 2:23pm Ovarian cancer February 16, 2025 3:52p m Peritoneal carcinomatosis February 16, 2025 3:52pm Bilateral carpal tunnel syndrome March 292024 10:55am Bilateral carpal tunnel syndrome April 142024 9:14am Chief Complaint Admit Date SINUSITIS December 31, 2024 4:5 7pm BILATERAL HANDS January 18, 2025 8:21am BL HANDS January 25, 2025 2:23p m fulphila February 04, 2025 2:00p m OVARIAN CANCER February 11, 2025 8:32a m 3 MO - LABS/CT 1 WK PRIOR - REVIEW SCANS February 16, 2025 3:52pm BUE; Carpal tunnel syndrome, bilateral u pper l February 17, 2025 10:23am BUE; Carpal tunnel syndrome, bilateral u pper l February 17, 2025 12:30pm SCREENING March 02, 2025 1:17 pm bilateral wrist March 29, 2025 10:5 5am Bilateral Endoscopic Carpal Tunnel Relea se April 14, 2025 9:14am Bilateral Endoscopic Carpal Tunnel Relea se April 14, 2025 10:28am BILATERAL WRISTS April 26, 2025 2: 06pm Reason for Visit Admit Date Bilateral carpal tunnel syndrome January 8:21am Bilateral carpal tunnel syndrome January 2:23pm Ovarian cancer February 16, 2025 3:52p m Peritoneal carcinomatosis February 16, 2025 3:52pm Bilateral carpal tunnel syndrome March 292024 10:55am Bilateral carpal tunnel syndrome April 142024 9:14am Bilateral carpal tunnel syndrome April 26, 2025 2:06pm Chief Complaint Admit Date BL HANDS January 25, 2025 2:23p m OVARIAN CANCER February 11, 2025 8:32a m 3 MO - LABS/CT 1 WK PRIOR - REVIEW SCANS February 16, 2025 3:52pm BUE; Carpal tunnel syndrome, bilateral u pper l February 17, 2025 10:23am BUE; Carpal tunnel syndrome, bilateral u pper l February 17, 2025 12:30pm SCREENING March 02, 2025 1:17 pm bilateral wrist March 29, 2025 10:5 5am Bilateral Endoscopic Carpal Tunnel Relea se April 14, 2025 9:14am Bilateral Endoscopic Carpal Tunnel Relea se April 14, 2025 10:28am BILATERAL WRISTS April 26, 2025 2: 06pm fulphila May 18, 2025 1:30pm MOUTH SORES/JOINT PAIN May 19 1:08pm Reason for Visit Admit Date Bilateral carpal tunnel syndrome January 2:23pm Ovarian cancer February 16, 2025 3:52p m Peritoneal carcinomatosis February 16, 2025 3:52pm Bilateral carpal tunnel syndrome March 292024 10:55am Bilateral carpal tunnel syndrome April 142024 9:14am Bilateral carpal tunnel syndrome April 26, 2025 2:06pm Ovarian cancer May 19, 2025 1:08pm Peritoneal carcinomatosis May 19, 2025 1:08pm Chief Complaint Admit Date BL HANDS January 25, 2025 2:23p m OVARIAN CANCER February 11, 2025 8:32a m 3 MO - LABS/CT 1 WK PRIOR - REVIEW SCANS February 16, 2025 3:52pm BUE; Carpal tunnel syndrome, bilateral u pper l February 17, 2025 10:23am BUE; Carpal tunnel syndrome, bilateral u pper l February 17, 2025 12:30pm SCREENING March 02, 2025 1:17 pm bilateral wrist March 29, 2025 10:5 5am Bilateral Endoscopic Carpal Tunnel Relea se April 14, 2025 9:14am Bilateral Endoscopic Carpal Tunnel Relea se April 14, 2025 10:28am BILATERAL WRISTS April 26, 2025 2: 06pm fulphila May 18, 2025 1:30pm MOUTH SORES/JOINT PAIN May 19 1:08pm 3 MO - LABS 1 WK PRIOR May 25 11:01am Reason for Visit Admit Date Bilateral carpal tunnel syndrome January 2:23pm Ovarian cancer February 16, 2025 3:52p m Peritoneal carcinomatosis February 16, 2025 3:52pm Bilateral carpal tunnel syndrome March 292024 10:55am Bilateral carpal tunnel syndrome April 142024 9:14am Bilateral carpal tunnel syndrome April 26, 2025 2:06pm 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, 2025 1:08pm Hot flashes May 19, 2025 1:08pm Stomatitis May 19, 2025 1:08pm Weight gain May 19, 2025 1:08pm Ovarian cancer May 19, 2025 1:08pm Peritoneal carcinomatosis May 19, 2025 1:08pm Ovarian cancer May 25, 2025 11:01am Peritoneal carcinomatosis May 25, 2025 11:01am Chief Complaint Admit Date OVARIAN CANCER February 11, 2025 8:32a m 3 MO - LABS/CT 1 WK PRIOR - REVIEW SCANS February 16, 2025 3:52pm BUE; Carpal tunnel syndrome, bilateral u pper l February 17, 2025 10:23am BUE; Carpal tunnel syndrome, bilateral u pper l February 17, 2025 12:30pm SCREENING March 02, 2025 1:17 pm bilateral wrist March 29, 2025 10:5 5am Bilateral Endoscopic Carpal Tunnel Relea se April 14, 2025 9:14am Bilateral Endoscopic Carpal Tunnel Relea se April 14, 2025 10:28am BILATERAL WRISTS April 26, 2025 2: 06pm fulphila May 18, 2025 1:30pm MOUTH SORES/JOINT PAIN May 19 1:08pm 3 MO - LABS 1 WK PRIOR May 25 11:01am BILATERAL WRISTS May 31, 2025 8:29am Reason for Visit Admit Date Ovarian cancer February 16, 2025 3:52p m Peritoneal carcinomatosis February 16, 2025 3:52pm Bilateral carpal tunnel syndrome March 292024 10:55am Bilateral carpal tunnel syndrome April 142024 9:14am Bilateral carpal tunnel syndrome April 26, 2025 2:06pm 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, 2025 1: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 Hot flashes May 19, 2025 1:08pm Stomatitis May 19, 2025 1:08pm Weight gain May 19, 2025 1:08pm Ovarian cancer May 19, 2025 1:08pm Peritoneal carcinomatosis May 19, 2025 1:08pm Ovarian cancer May 25, 2025 11:01am Peritoneal carcinomatosis May 25, 2025 11:01am Bilateral carpal tunnel syndrome Septemb er 2024 8:29am Additional Source Comments Patient Care team informatio n (unrecognized section and content) Team Status: Active Member Role Status Dates Adan Garcia NP, PEN TESTER-C Primary Care Provider Active Team Status: Inactive Member Role Status Dates Adan Garcia NP, PEN TESTER-C Primary Care Provider Active Start: August 25, 2024 End: August 25, 2024 Adan Garcia NP, PEN TESTER-C Referring Provider Active Start: August 25, 2024 End: August 25, 2024 Ellen Dowling NP PEN TESTER-C Attending Provider Active Start: August 25, 2024 End: August 25, 2024 Team Status: Inactive Member Role Status Dates Adan Garcia NP, PEN TESTER-C Primary Care Provider Active Start: August 25, 2024 End: August 25, 2024 Ellen Dowling NP, PEN TESTER-C Attending Provider Active Start: August 25, 2024 End: August 25, 2024 Ellen Dowling NP PEN TESTER-C Referring Provider Active Start: August 25, 2024 End: August 25, 2024 Team Status: Inactive Member Role Status Dates Adan Garcia NP, PEN TESTER-C Primary Care Provider Active Start: August 26, 2024 End: August 26, 2024 Ellen Dowling NP PEN TESTER-C Attending Provider Active Start: August 26, 2024 End: August 26, 2024 Ellen Dowling NP, PEN TESTER-C Referring Provider Active Start: August 26, 2024 End: August 26, 2024 Team Status: Active Member Role Status Dates Adan Garcia NP, PEN TESTER-C Primary Care Provider Active Start: August 26, 2024 Ellen Dowling PEN TESTER, PEN TESTER-C Referring Provider Active Start: August 26, 2024 Ellen Dowling NP, PEN TESTER-C Other Provider Active St art: August 26, 2024 Ramona Luke PEN TESTER, PEN TESTER-C Attending Provider Active Start: August 26, 2024 Team Status: Inactive Member Role Status Dates Dr. Coco Lima MD Attending Provider Active Start: September 01, 2024 End: September 01, 2024 Dr. Coco Lima MD Referring Provider Active Start: September 01, 2024 End: September 01, 2024 Adan Garcia PEN TESTER, PEN TESTER-C Primary Care Provider Active Start: September 01, 2024 End: September 01, 2024 Team Status: Inactive Member Role Status Dates Dr. Coco Lima MD Attending Provider Active Start: September 02, 2024 End: September 02, 2024 Adan Garcia PEN TESTER, PEN TESTER-C Primary Care Provider Active Start: September 02, 2024 End: September 02, 2024 Adan Garcia PEN TESTER, PEN TESTER-C Referring Provider Active Start: September 02, 2024 End: September 02, 2024 Team Status: Inactive Member Role Status Dates Adan Garcia NP, PEN TESTER-C Primary Care Provider Active Start: September 23, 2024 End: September 23, 2024 Dr. Coco Lima MD Attending Provider Active Start: September 23, 2024 End: September 23, 2024 Dr. Coco Lima MD Referring Provider Active Start: September 23, 2024 End: September 23, 2024 Team Status: Inactive Member Role Status Dates Adan Garcia NP, PEN TESTER-C Primary Care Provider Active Start: 2024 End: 2024 Adan Garcia PEN TESTER, PEN TESTER-C Referring Provider Active Start: 2024 End: 2024 Dr. Coco Lima MD Attending Provider Active Start: 2024 End: 2024 Team Status: Inactive Member Role Status Dates Adan Garcia NP, PEN TESTER-C Primary Care Provider Active Start: October 19, 2024 End: October 19, 2024 Adan Garcia PEN TESTER, PEN TESTER-C Referring Provider Active Start: October 19, 2024 End: October 19, 2024 Pradeep Chandler MD Attending Provider Active St art: October 19, 2024 End: October 19, 2024 Team Status: Active Member Role Status Dates Dr. Coco Lima MD Attending Provider Active Start: December 02, 2024 Dr. Coco Lima MD Referring Provider Active Start: December 02, 2024 Ellen Dowling PEN TESTER, PEN TESTER-C Other Provider Active St art: December 02, 2024 Adan Garcia PEN TESTER, PEN TESTER-C Primary Care Provider Active Start: December 02, 2024 Team Status: Inactive Member Role Status Dates Adan Garica NP, PEN TESTER-C Primary Care Provider Active Start: December 02, 2024 End: December 02, 2024 Dr. Coco Lima MD Attending Provider Active Start: December 02, 2024 End: December 02, 2024 Dr. Coco Lima MD Referring Provider Active Start: December 02, 2024 End: December 02, 2024 Team Status: Inactive Member Role Status Dates Adan Garcia PEN TESTER, PEN TESTER-C Primary Care Provider Active Start: December 09, 2024 End: December 09, 2024 Adan Garcia NP, PEN TESTER-C Referring Provider Active Start: December 09, 2024 End: December 09, 2024 Dr. Coco Lima MD Attending Provider Active Start: December 09, 2024 End: December 09, 2024 Team Status: Inactive Member Role Status Dates Adan Garcia PEN TESTER, PEN TESTER-C Primary Care Provider Active Start: December 31, 2024 End: December 31, 2024 Dr. Fox Lopez MD Attending Provider Active Start: December 31, 2024 End: December 31, 2024 Dr. Fox Lopez MD Referring Provider Active Start: December 31, 2024 End: December 31, 2024 Team Status: Inactive Member Role Status Dates Adan Garcia NP, PEN TESTER-C Primary Care Provider Active Start: January 18, 2025 End: January 18, 2025 Adan Garcia PEN TESTER, PEN TESTER-C Referring Provider Active Start: January 18, 2025 End: January 18, 2025 Pradeep Chandler MD Attending Provider Active St art: January 18, 2025 End: January 18, 2025 Team Status: Inactive Member Role Status Dates Adan Garcia PEN TESTER, PEN TESTER-C Primary Care Provider Active Start: January 25, 2025 End: January 25, 2025 Adan Garcia NP, PEN TESTER-C Referring Provider Active Start: January 25, 2025 End: January 25, 2025 Pradeep Chandler MD Attending Provider Active St art: January 25, 2025 End: January 25, 2025 Team Status: Active Member Role Status Dates Dr. Coco Lima MD Attending Provider Active Start: February 04, 2025 Dr. Coco Lima MD Referring Provider Active Start: February 04, 2025 Ellen Dowling NP, PEN TESTER-C Other Provider Active St art: February 04, 2025 Adan Garcia NP, PEN TESTER-C Primary Care Provider Active Start: February 04, 2025 Team Status: Inactive Member Role Status Dates Adan Garcia NP, PEN TESTER-C Primary Care Provider Active Start: February 11, 2025 End: February 11, 2025 Dr. Coco Lima MD Other Provider Active Start: February 11, 2025 End: February 11, 2025 Ellen Dowling NP, PEN TESTER-C Attending Provider Active Start: February 11, 2025 End: February 11, 2025 Ellen Dowling NP, PEN TESTER-C Referring Provider Active Start: February 11, 2025 End: February 11, 2025 Team Status: Active Member Role Status Dates Adan Garcia NP, PEN TESTER-C Primary Care Provider Active Start: February 11, 2025 Dr. Mervat Guerra DO Attending Provider Active S tart: February 11, 2025 Team Status: Inactive Member Role Status Dates Adan Garcia NP, PEN TESTER-C Primary Care Provider Active Start: February 16, 2025 End: February 16, 2025 Adan Garcia NP, PEN TESTER-C Referring Provider Active Start: February 16, 2025 End: February 16, 2025 Dr. Coco Lima MD Attending Provider Active Start: February 16, 2025 End: February 16, 2025 Team Status: Active Member Role Status Dates Adan Garcia NP, PEN TESTER-C Primary Care Provider Active Start: February 17, 2025 Pradeep Chandler MD Attending Provider Active St art: February 17, 2025 Pradeep Chandler MD Referring Provider Active St art: February 17, 2025 Team Status: Active Member Role Status Dates Adan Garcia NP, PEN TESTER-C Primary Care Provider Active Start: February 17, 2025 Pradeep Chandler MD Referring Provider Active St art: February 17, 2025 Pradeep Chandler MD Other Provider Active Start: February 17, 2025 Dr. Te Zeng MD Attending Provider Active S tart: February 17, 2025 Team Status: Inactive Member Role Status Dates Adan Garcia PEN TESTER, PEN TESTER-C Primary Care Provider Active Start: February 17, 2025 End: February 17, 2025 Pradeep Chandler MD Attending Provider Active St art: February 17, 2025 End: February 17, 2025 Pradeep Chandler MD Referring Provider Active St art: February 17, 2025 End: February 17, 2025 Team Status: Active Member Role Status Dates Adan Garcia NP, PEN TESTER-C Primary Care Provider Active Start: February 11, 2025 Dr. Coco Lima MD Other Provider Active Start: February 11, 2025 Ellen Dowling PEN TESTER, PEN TESTER-C Attending Provider Active Start: February 11, 2025 Ellen Dowling NP, PEN TESTER-C Referring Provider Active Start: February 11, 2025 Team Status: Inactive Member Role Status Dates Adan Garcia NP, PEN TESTER-C Primary Care Provider Active Start: March 02, 2025 End: March 02, 2025 Dr. Coco Lima MD Attending Provider Active Start: March 02, 2025 End: March 02, 2025 Dr. Coco Lima MD Referring Provider Active Start: March 02, 2025 End: March 02, 2025 Team Status: Active Member Role/Relationship Status Dates Adan Garcia NP, PEN TESTER-C Primary Care Provider Active Team Status: Inactive Member Role/Relationship Status Dates Adan Garcia NP, PEN TESTER-C Primary Care Provider Active Start: December 02, 2024 End: December 02, 2024 Dr. Coco Lima MD Attending Provider Active Start: December 02, 2024 End: December 02, 2024 Dr. Coco Lima MD Referring Provider Active Start: December 02, 2024 End: December 02, 2024 Team Status: Inactive Member Role/Relationship Status Dates Adan Garcia PEN TESTER, PEN TESTER-C Primary Care Provider Active Start: December 09, 2024 End: December 09, 2024 Adan Garcia PEN TESTER, PEN TESTER-C Referring Provider Active Start: December 09, 2024 End: December 09, 2024 Dr. Coco Lima MD Attending Provider Active Start: December 09, 2024 End: December 09, 2024 Team Status: Inactive Member Role/Relationship Status Dates Adan Garcia NP, PEN TESTER-C Primary Care Provider Active Start: December 31, 2024 End: December 31, 2024 Dr. Fox Lopez MD Attending Provider Active Start: December 31, 2024 End: December 31, 2024 Dr. Fox Lopez MD Referring Provider Active Start: December 31, 2024 End: December 31, 2024 Team Status: Inactive Member Role/Relationship Status Dates Adan Garcia NP, PEN TESTER-C Primary Care Provider Active Start: January 18, 2025 End: January 18, 2025 Adan Garcia PEN TESTER, PEN TESTER-C Referring Provider Active Start: January 18, 2025 End: January 18, 2025 Pradeep Chandler MD Attending Provider Active St art: January 18, 2025 End: January 18, 2025 Team Status: Inactive Member Role/Relationship Status Dates Adan Garcia NP, PEN TESTER-C Primary Care Provider Active Start: January 25, 2025 End: January 25, 2025 Adan Garcia NP, PEN TESTER-C Referring Provider Active Start: January 25, 2025 End: January 25, 2025 Pradeep Chandler MD Attending Provider Active St art: January 25, 2025 End: January 25, 2025 Team Status: Active Member Role/Relationship Status Dates Dr. Coco Lima MD Attending Provider Active Start: February 04, 2025 Dr. Coco Lima MD Referring Provider Active Start: February 04, 2025 Ellen Dowling NP, PEN TESTER-C Other Provider Active St art: February 04, 2025 Adan Garcia NP, PEN TESTER-C Primary Care Provider Active Start: February 04, 2025 Team Status: Inactive Member Role/Relationship Status Dates Adan Garcia NP, PEN TESTER-C Primary Care Provider Active Start: February 11, 2025 End: February 11, 2025 Dr. Coco Lima MD Other Provider Active Start: February 11, 2025 End: February 11, 2025 Ellen Dowling NP, PEN TESTER-C Attending Provider Active Start: February 11, 2025 End: February 11, 2025 Ellen Dowling NP, PEN TESTER-C Referring Provider Active Start: February 11, 2025 End: February 11, 2025 Team Status: Active Member Role/Relationship Status Dates Adan Garcia PEN TESTER, PEN TESTER-C Primary Care Provider Active Start: February 11, 2025 Dr. Mervat Guerra DO Attending Provider Active S tart: February 11, 2025 Team Status: Inactive Member Role/Relationship Status Dates Adan Garcia PEN TESTER, PEN TESTER-C Primary Care Provider Active Start: February 16, 2025 End: February 16, 2025 Adan Garcia PEN TESTER, PEN TESTER-C Referring Provider Active Start: February 16, 2025 End: February 16, 2025 Dr. Coco Lima MD Attending Provider Active Start: February 16, 2025 End: February 16, 2025 Team Status: Inactive Member Role/Relationship Status Dates Adan Garcia NP, PEN TESTER-C Primary Care Provider Active Start: February 17, 2025 End: February 17, 2025 Pradeep Chandler MD Attending Provider Active St art: February 17, 2025 End: February 17, 2025 Pradeep Chandler MD Referring Provider Active St art: February 17, 2025 End: February 17, 2025 Team Status: Active Member Role/Relationship Status Dates Adan Garcia NP, PEN TESTER-C Primary Care Provider Active Start: February 17, 2025 Pradeep Chandler MD Referring Provider Active St art: February 17, 2025 Pradeep Chandler MD Other Provider Active Start: February 17, 2025 Dr. Te Zeng MD Attending Provider Active S tart: February 17, 2025 Team Status: Inactive Member Role/Relationship Status Dates Adan Garcia NP, PEN TESTER-C Primary Care Provider Active Start: March 02, 2025 End: March 02, 2025 Dr. Coco Lima MD Attending Provider Active Start: March 02, 2025 End: March 02, 2025 Dr. Coco Lmia MD Referring Provider Active Start: March 02, 2025 End: March 02, 2025 Team Status: Inactive Member Role/Relationship Status Dates Adan Garcia NP, PEN TESTER-C Primary Care Provider Active Start: March 29, 2025 End: March 29, 2025 Adan Garcia NP, PEN TESTER-C Referring Provider Active Start: March 29, 2025 End: March 29, 2025 Pradeep Chandler MD Attending Provider Active St art: March 29, 2025 End: March 29, 2025 Team Status: Inactive Member Role/Relationship Status Dates Adan Garcia NP, PEN TESTER-C Primary Care Provider Active Start: December 31, 2024 End: December 31, 2024 Dr. Fox Lopez MD Attending Provider Active Start: December 31, 2024 End: December 31, 2024 Dr. Fox Lopez MD Referring Provider Active Start: December 31, 2024 End: December 31, 2024 Team Status: Inactive Member Role/Relationship Status Dates Adan Garcia PEN TESTER, PEN TESTER-C Primary Care Provider Active Start: January 18, 2025 End: January 18, 2025 Adan Garcia PEN TESTER, PEN TESTER-C Referring Provider Active Start: January 18, 2025 End: January 18, 2025 Pradeep Chandler MD Attending Provider Active St art: January 18, 2025 End: January 18, 2025 Team Status: Inactive Member Role/Relationship Status Dates Adan Garcia NP, PEN TESTER-C Primary Care Provider Active Start: January 25, 2025 End: January 25, 2025 Adan Garcia NP, PEN TESTER-C Referring Provider Active Start: January 25, 2025 End: January 25, 2025 Pradeep Chandler MD Attending Provider Active St art: January 25, 2025 End: January 25, 2025 Team Status: Active Member Role/Relationship Status Dates Dr. Coco Lima MD Attending Provider Active Start: February 04, 2025 Dr. Coco Lima MD Referring Provider Active Start: February 04, 2025 Ellen Dowling NP, PEN TESTER-C Other Provider Active St art: February 04, 2025 Adan Garcia NP, PEN TESTER-C Primary Care Provider Active Start: February 04, 2025 Team Status: Inactive Member Role/Relationship Status Dates Adan Garcia NP, PEN TESTER-C Primary Care Provider Active Start: February 11, 2025 End: February 11, 2025 Dr. Coco Lima MD Other Provider Active Start: February 11, 2025 End: February 11, 2025 Ellen Dowling NP, PEN TESTER-C Attending Provider Active Start: February 11, 2025 End: February 11, 2025 Ellen Dowling NP, PEN TESTER-C Referring Provider Active Start: February 11, 2025 End: February 11, 2025 Team Status: Active Member Role/Relationship Status Dates Adan Radha PEN TESTER, PEN TESTER-C Primary Care Provider Active Start: February 11, 2025 Dr. Mervat Guerra DO Attending Provider Active S tart: February 11, 2025 Team Status: Inactive Member Role/Relationship Status Dates Adan Garcia PEN TESTER, PEN TESTER-C Primary Care Provider Active Start: February 16, 2025 End: February 16, 2025 Adan Garcia PEN TESTER, PEN TESTER-C Referring Provider Active Start: February 16, 2025 End: February 16, 2025 Dr. Coco Lima MD Attending Provider Active Start: February 16, 2025 End: February 16, 2025 Team Status: Inactive Member Role/Relationship Status Dates Adan Garcia NP, PEN TESTER-C Primary Care Provider Active Start: February 17, 2025 End: February 17, 2025 Pradeep Chandler MD Attending Provider Active St art: February 17, 2025 End: February 17, 2025 Pradeep Chandler MD Referring Provider Active St art: February 17, 2025 End: February 17, 2025 Team Status: Active Member Role/Relationship Status Dates Adan Garcia NP, PEN TESTER-C Primary Care Provider Active Start: February 17, 2025 Pradeep Chandler MD Referring Provider Active St art: February 17, 2025 Pradeep Chandler MD Other Provider Active Start: February 17, 2025 Dr. Te Zeng MD Attending Provider Active S tart: February 17, 2025 Team Status: Inactive Member Role/Relationship Status Dates Adan Garcia PEN TESTER, PEN TESTER-C Primary Care Provider Active Start: March 02, 2025 End: March 02, 2025 Dr. Coco Lima MD Attending Provider Active Start: March 02, 2025 End: March 02, 2025 Dr. Coco Lima MD Referring Provider Active Start: March 02, 2025 End: March 02, 2025 Team Status: Inactive Member Role/Relationship Status Dates Adan Garcia NP, PEN TESTER-C Primary Care Provider Active Start: March 29, 2025 End: March 29, 2025 Adan Garcia NP, PEN TESTER-C Referring Provider Active Start: March 29, 2025 End: March 29, 2025 Pradeep Chandler MD Attending Provider Active St art: March 29, 2025 End: March 29, 2025 Team Status: Inactive Member Role/Relationship Status Dates Adan Garcia NP, PEN TESTER-C Primary Care Provider Active Start: April 14, 2025 End: April 14, 2025 Pradeep Chandler MD Attending Provider Active St art: April 14, 2025 End: April 14, 2025 Pradeep Chandler MD Referring Provider Active St art: April 14, 2025 End: April 14, 2025 Team Status: Active Member Role/Relationship Status Dates Adan Garcia NP, PEN TESTER-C Primary Care Provider Active Start: April 14, 2025 Pradeep Chandler MD Attending Provider Active St art: April 14, 2025 Pradeep Chandler MD Referring Provider Active St art: April 14, 2025 Pradeep Chandler MD Other Provider Active Start: April 14, 2025 Team Status: Inactive Member Role/Relationship Status Dates Adan Garcia PEN TESTER, PEN TESTER-C Primary Care Provider Active Start: April 26, 2025 End: April 26, 2025 Adan Garcia PEN TESTER, PEN TESTER-C Referring Provider Active Start: April 26, 2025 End: April 26, 2025 Pradeep Chandler MD Attending Provider Active St art: April 26, 2025 End: April 26, 2025 Team Status: Inactive Member Role/Relationship Status Dates Adan Garcia NP, PEN TESTER-C Primary Care Provider Active Start: January 25, 2025 End: January 25, 2025 Adan Garcia PEN TESTER, PEN TESTER-C Referring Provider Active Start: January 25, 2025 End: January 25, 2025 Pradeep Chandler MD Attending Provider Active St art: January 25, 2025 End: January 25, 2025 Team Status: Inactive Member Role/Relationship Status Dates Adan Garcia NP, PEN TESTER-C Primary Care Provider Active Start: February 11, 2025 End: February 11, 2025 Dr. Coco Lima MD Other Provider Active Start: February 11, 2025 End: February 11, 2025 Ellen Dowling PEN TESTER, PEN TESTER-C Attending Provider Active Start: February 11, 2025 End: February 11, 2025 Ellen Dowling NP, PEN TESTER-C Referring Provider Active Start: February 11, 2025 End: February 11, 2025 Team Status: Active Member Role/Relationship Status Dates Adan Garcia NP, PEN TESTER-C Primary Care Provider Active Start: February 11, 2025 Dr. Mervat Guerra DO Attending Provider Active S tart: February 11, 2025 Team Status: Inactive Member Role/Relationship Status Dates Adan Garcia PEN TESTER, PEN TESTER-C Primary Care Provider Active Start: February 16, 2025 End: February 16, 2025 Adan Garcia PEN TESTER, PEN TESTER-C Referring Provider Active Start: February 16, 2025 End: February 16, 2025 Dr. Coco iLma MD Attending Provider Active Start: February 16, 2025 End: February 16, 2025 Team Status: Inactive Member Role/Relationship Status Dates Adan Garcia NP, PEN TESTER-C Primary Care Provider Active Start: February 17, 2025 End: February 17, 2025 Pradeep Chandler MD Attending Provider Active St art: February 17, 2025 End: February 17, 2025 Pradeep Chandler MD Referring Provider Active St art: February 17, 2025 End: February 17, 2025 Team Status: Active Member Role/Relationship Status Dates Adan Garcia PEN TESTER, PEN TESTER-C Primary Care Provider Active Start: February 17, 2025 Pradeep Chandler MD Referring Provider Active St art: February 17, 2025 Pradeep Chandler MD Other Provider Active Start: February 17, 2025 Dr. Te Zeng MD Attending Provider Active S tart: February 17, 2025 Team Status: Inactive Member Role/Relationship Status Dates Adan Garcia NP, PEN TESTER-C Primary Care Provider Active Start: March 02, 2025 End: March 02, 2025 Dr. Coco Lima MD Attending Provider Active Start: March 02, 2025 End: March 02, 2025 Dr. Coco Lima MD Referring Provider Active Start: March 02, 2025 End: March 02, 2025 Team Status: Inactive Member Role/Relationship Status Dates Adan Garcia PEN TESTER, PEN TESTER-C Primary Care Provider Active Start: March 29, 2025 End: March 29, 2025 Adan Garcia PEN TESTER, PEN TESTER-C Referring Provider Active Start: March 29, 2025 End: March 29, 2025 Pradeep Chandler MD Attending Provider Active St art: March 29, 2025 End: March 29, 2025 Team Status: Inactive Member Role/Relationship Status Dates Adan Garcia NP, PEN TESTER-C Primary Care Provider Active Start: April 14, 2025 End: April 14, 2025 Pradeep Chandler MD Attending Provider Active St art: April 14, 2025 End: April 14, 2025 Pradeep Chandler MD Referring Provider Active St art: April 14, 2025 End: April 14, 2025 Team Status: Active Member Role/Relationship Status Dates Adan Garcia NP, PEN TESTER-C Primary Care Provider Active Start: April 14, 2025 Pradeep Chandler MD Attending Provider Active St art: April 14, 2025 Pradeep Chandler MD Referring Provider Active St art: April 14, 2025 Pradeep Chandler MD Other Provider Active Start: April 14, 2025 Team Status: Inactive Member Role/Relationship Status Dates Adan Garica PEN TESTER, PEN TESTER-C Primary Care Provider Active Start: April 26, 2025 End: April 26, 2025 Adan Garcia PEN TESTER, PEN TESTER-C Referring Provider Active Start: April 26, 2025 End: April 26, 2025 Pradeep Chandler MD Attending Provider Active St art: April 26, 2025 End: April 26, 2025 Team Status: Active Member Role/Relationship Status Dates Dr. Coco Lima MD Attending Provider Active Start: May 18, 2025 Dr. Coco Lima MD Referring Provider Active Start: May 18, 2025 Ellen Dowling PEN TESTER, PEN TESTER-C Other Provider Active St art: May 18, 2025 Adan Garcia PEN TESTER, PEN TESTER-C Primary Care Provider Active Start: May 18, 2025 Team Status: Inactive Member Role/Relationship Status Dates Adan Garcia PEN TESTER, PEN TESTER-C Primary Care Provider Active Start: May 19, 2025 End: May 19, 2025 Adan Garcia PEN TESTER, PEN TESTER-C Referring Provider Active Start: May 19, 2025 End: May 19, 2025 Ellen Dowling PEN TESTER, PEN TESTER-C Attending Provider Active Start: May 19, 2025 End: May 19, 2025 Team Status: Inactive Member Role/Relationship Status Dates Adan Garcia PEN TESTER, PEN TESTER-C Primary Care Provider Active Start: May 25, 2025 End: May 25, 2025 Adan Garcia PEN TESTER, PEN TESTER-C Referring Provider Active Start: May 25, 2025 End: May 25, 2025 Dr. Coco Lima MD Attending Provider Active Start: May 25, 2025 End: May 25, 2025 Team Status: Inactive Member Role/Relationship Status Dates Adan Garcia NP, PEN TESTER-C Primary Care Provider Active Start: February 11, 2025 End: February 11, 2025 Dr. Coco Lima MD Other Provider Active Start: February 11, 2025 End: February 11, 2025 Ellen Dowling PEN TESTER, PEN TESTER-C Attending Provider Active Start: February 11, 2025 End: February 11, 2025 Ellen Dowling PEN TESTER, PEN TESTER-C Referring Provider Active Start: February 11, 2025 End: February 11, 2025 Team Status: Active Member Role/Relationship Status Dates Adan Garcia PEN TESTER, PEN TESTER-C Primary Care Provider Active Start: February 11, 2025 Dr. Mervat Guerra DO Attending Provider Active S tart: February 11, 2025 Team Status: Inactive Member Role/Relationship Status Dates Adan Garcia PEN TESTER, PEN TESTER-C Primary Care Provider Active Start: February 16, 2025 End: February 16, 2025 Adan Garcia NP, PEN TESTER-C Referring Provider Active Start: February 16, 2025 End: February 16, 2025 Dr. Coco Lima MD Attending Provider Active Start: February 16, 2025 End: February 16, 2025 Team Status: Inactive Member Role/Relationship Status Dates Adan Garcia NP, PEN TESTER-C Primary Care Provider Active Start: February 17, 2025 End: February 17, 2025 Pradeep Chandler MD Attending Provider Active St art: February 17, 2025 End: February 17, 2025 Pradeep Chandler MD Referring Provider Active St art: February 17, 2025 End: February 17, 2025 Team Status: Active Member Role/Relationship Status Dates Adan Garcia NP, PEN TESTER-C Primary Care Provider Active Start: February 17, 2025 Pradeep Chandler MD Referring Provider Active St art: February 17, 2025 Pradeep Chandler MD Other Provider Active Start: February 17, 2025 Dr. Te Zeng MD Attending Provider Active S tart: February 17, 2025 Team Status: Inactive Member Role/Relationship Status Dates Adan Garcia NP, PEN TESTER-C Primary Care Provider Active Start: March 02, 2025 End: March 02, 2025 Dr. Coco Lima MD Attending Provider Active Start: March 02, 2025 End: March 02, 2025 Dr. Coco Lima MD Referring Provider Active Start: March 02, 2025 End: March 02, 2025 Team Status: Inactive Member Role/Relationship Status Dates Adan Garcia PEN TESTER, PEN TESTER-C Primary Care Provider Active Start: March 29, 2025 End: March 29, 2025 Adan Garcia PEN TESTER, PEN TESTER-C Referring Provider Active Start: March 29, 2025 End: March 29, 2025 Pradeep Chandler MD Attending Provider Active St art: March 29, 2025 End: March 29, 2025 Team Status: Inactive Member Role/Relationship Status Dates Adan Garcia NP, PEN TESTER-C Primary Care Provider Active Start: April 14, 2025 End: April 14, 2025 Pradeep Chandler MD Attending Provider Active St art: April 14, 2025 End: April 14, 2025 Pradeep Chandler MD Referring Provider Active St art: April 14, 2025 End: April 14, 2025 Team Status: Active Member Role/Relationship Status Dates Adan Garcia NP, PEN TESTER-C Primary Care Provider Active Start: April 14, 2025 Pradeep Chandler MD Attending Provider Active St art: April 14, 2025 Pradeep Chandler MD Referring Provider Active St art: April 14, 2025 Pradeep Chandler MD Other Provider Active Start: April 14, 2025 Team Status: Inactive Member Role/Relationship Status Dates Adan Garcia NP, PEN TESTER-C Primary Care Provider Active Start: April 26, 2025 End: April 26, 2025 Adan Garcia NP, PEN TESTER-C Referring Provider Active Start: April 26, 2025 End: April 26, 2025 Pradeep Chandler MD Attending Provider Active St art: April 26, 2025 End: April 26, 2025 Team Status: Active Member Role/Relationship Status Dates Dr. Coco Lima MD Attending Provider Active Start: May 18, 2025 Dr. Coco Lima MD Referring Provider Active Start: May 18, 2025 Ellen Dowling NP, PEN TESTER-C Other Provider Active St art: May 18, 2025 Adan Garcia NP, PEN TESTER-C Primary Care Provider Active Start: May 18, 2025 Team Status: Inactive Member Role/Relationship Status Dates Adan Garcia PEN TESTER, PEN TESTER-C Primary Care Provider Active Start: May 19, 2025 End: May 19, 2025 Adan Garcia PEN TESTER, PEN TESTER-C Referring Provider Active Start: May 19, 2025 End: May 19, 2025 Ellen Dowling PEN TESTER, PEN TESTER-C Attending Provider Active Start: May 19, 2025 End: May 19, 2025 Team Status: Inactive Member Role/Relationship Status Dates Adan Garcia NP, PEN TESTER-C Primary Care Provider Active Start: May 25, 2025 End: May 25, 2025 Adan Garcia NP, PEN TESTER-C Referring Provider Active Start: May 25, 2025 End: May 25, 2025 Dr. Coco Lima MD Attending Provider Active Start: May 25, 2025 End: May 25, 2025 Team Status: Inactive Member Role/Relationship Status Dates Adan Garcia NP, PEN TESTER-C Primary Care Provider Active Start: May 31, 2025 End: May 31, 2025 Adan Garica NP, PEN TESTER-C Referring Provider Active Start: May 31, 2025 End: May 31, 2025 Pradeep Chandler MD Attending Provider Active St art: May 31, 2025 End: May 31, 2025 INFORMATION SOURCE (unrecogn ized section and content) DATE CREATED AUTHOR 05/23/2024 [facility] [place] [facility] DATE CREATED AUTHOR AUTHOR'S ORGANIZ ATION 09/04/2024 [facility] DATE CREATED AUTHOR AUTHOR'S ORGANIZ ATION 01/09/2025 [facility] DATE CREATED AUTHOR AUTHOR'S ORGANIZ ATION 06/21/2025 [facility] DATE CREATED AUTHOR AUTHOR'S ORGANIZ ATION 07/17/2025 [facility] Goals (unrecognized section and content) Goals may be documented in a n alternate section FOR RECORDS PERTAINING TO PATIENTS WHO ARE OR HAVE BEEN ENROLLED IN A CHEMICAL DEPENDENCY/SUBSTANCEABUSE PROGRAM, SOME INFORMATION MAY BE OMITTED. This clinical summary was aggregated from multiple sources. Caution should be exercised in using it in the provision of clinical care. This summary normalizes information from multiple sources, and as a consequence, information in this document may materially change the coding, format and clinical context of patient data. In addition, data may be omitted in some cases. CLINICAL DECISIONS SHOULD BE BASED ON THE PRIMARY CLINICAL RECORDS. [facility]. provides no warranty or guarantee of the accuracy or completeness of information in this document.
== END | disposition home or self-care (01) ==
LOC: CT 07:55
PROVIDERS: PCP Nurse Practitioner Family; Referring Provider Internal Medicine Hematology & Oncology; Visit Provider Internal Medicine Hematology & Oncology
DX: C56.3 Malignant neoplasm of bilateral ovaries (principal); C78.6 Secondary malignant neoplasm of retroperitoneum and peritoneum
CPT/HCPCS: 71260; 74177; Q9967; A4216